=== PATIENT | female | born 1950 | race Caucasian/White ===

== ENCOUNTER 2018-04-19 15:33 | Observation (INO) ==
[2018-04-19 16:19] LABS: Baso # (Auto) 0.1 th/mm3 (0.0-0.2); Baso % (Auto) 0.7 % (0.0-2.0); Eos # (Auto) 0.3 th/mm3 (0.0-0.4); Eos % (Auto) 3.7 % (0.0-4.0); Hematocrit 42.4 % (35.0-46.0); Hemoglobin 14.4 gm/dL (11.6-15.3); Lymph # (Auto) 3.2 th/mm3 (1.0-4.8); Lymph % (Auto) 41.3 % (9.0-44.0); Mean Corpuscular HGB Conc 33.9 % (32.0-36.0); Mean Corpuscular Hemoglobin 31.9 pg (27.0-34.0); Mean Platelet Volume 8.3 fL (7.0-11.0); Mono # (Auto) 0.6 th/mm3 (0.0-0.9); Mono % (Auto) 8.3 % (0.0-8.0); Neut # (Auto) 3.6 th/mm3 (1.8-7.7); Platelet Count 215 th/mm3 (150-450); Red Blood Count 4.51 mil/mm3 (4.00-5.30); Red Cell Distribution Width 14.1 % (11.6-17.2); White Blood Count 7.8 th/mm3 (4.0-11.0)
[2018-04-19 16:41] LABS: Activated Partial Thrombo Time 27.9 sec (23.4-31.7); INR 1.1 Ratio; Prothrombin Time 11.6 sec (9.8-11.6)
--- NOTE | 2018-04-19 16:46 | XR ---
EXAM DATE: 04/19/2018 4:44 PM EST AGE/SEX: 68 years / Female INDICATIONS: Shortness of breath. CLINICAL DATA: This is the patient's initial encounter. Patient reports that signs and symptoms have been present for 1 day and indicates a pain score of Nonresponsive. MEDICAL/SURGICAL HISTORY: . Fractured clavicle. None. COMPARISON: No prior exams available for comparison. FINDINGS: A single AP view of the chest demonstrates the lungs to be symmetrically aerated without evidence of mass, infiltrate or effusion. The cardiomediastinal contours are unremarkable. Osseous structures a re intact. CONCLUSION: No acute cardiopulmonary disease. Electronically signed by: Dino Salguero MD Board Certified Radiologist 04/19/2018 4:45 PM EST
[2018-04-19 17:08] LABS: Anion Gap 8 meq/L (5-15); Aspartate Aminotransferase 25 U/L (15-37); Blood Urea Nitrogen 13 mg/dL (7-18); Calcium 7.9 mg/dL (8.5-10.1); Carbon Dioxide 27.4 meq/L (21.0-32.0); Chloride 105 meq/L (98-107); Glomerular Filtration Rate 46 mL/min (>89); Glucose,Random 119 mg/dL (74-106); Sodium 140 meq/L (136-145)
[2018-04-19 17:09] LABS: Alanine Aminotransferase 13 U/L (10-53)
[2018-04-19 17:13] LABS: Alkaline Phosphatase 54 U/L (45-117); Creatine Kinase 160 U/L (26-192); Total Protein 6.8 g/dL (6.4-8.2)
[2018-04-19 17:18] LABS: Bilirubin,Urine Negative (Negative); Clarity,Urine Clear (Clear); Color,Urine Straw (Yellw/Straw); Glucose,Urine (UA) Negative (Negative); Leukocyte Esterase,Urine Negative (Negative); Nitrite,Urine Negative (Negative); Specific Gravity,Urine 1.005 (1.002-1.035)
--- NOTE | 2018-04-19 17:18 | CT ---
EXAM DATE: 04/19/2018 5:14 PM EST AGE/SEX: 68 years / Female INDICATIONS: Altered Mental Status CLINICAL DATA: This is the patient's initial encounter. Patient reports that signs and symptoms have been present for 1 day and indicates a pain score of 0/10. MEDICAL/SURGICAL HISTORY: Dementia. Diabetes. Hypertension. Non-Hodgkin's Lymphoma None. RADIATION DOSE: 56.35 CTDI (mGy) COMPARISON: No prior exams available for comparison. TECHNIQUE: CT of the head without contrast. Using automated exposure control and adjustment of the mA and/or kV according to patient size, radiation dose was kept as low as reasonably achievable to ob tain optimal diagnostic quality images. DICOM format image data is available electronically for revi ew and comparison. FINDINGS: Cerebrum: The ventricles are normal for age. There is diffuse bilateral cortical atrophy. No evidenc e of midline shift, mass lesion, hemorrhage or acute infarction. Moderate chronic white matter change s are noted bilaterally. There are old small infarcts in the left basal ganglia. No extraaxial fluid collections are seen. 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 Posterior Fossa: The cerebellum and brainstem are intact. The 4th ventricle is midline. The cerebe llopontine angle is unremarkable. Extracranial: The visualized portion of the orbits is intact. Skull: The calvaria is intact. No evidence of skull fracture. CONCLUSION: 1. No focal or acute intracranial hemorrhage. 2. Diffuse bilateral cortical atrophy. 3. 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 4. A few small old infarct in the left basal ganglia. . Electronically signed by: Irving Boykin MD Board Certified Radiologist 04/19/2018 5:17 PM EST
--- NOTE | 2018-04-19 17:45 | ED ---
HPI General Chief complaint: Altered Mental Status Stated complaint: Alt mental Time Seen by Provider: 04/19/18 15:45 Source: family and EMS Mode of arrival: EMS Limitations: altered mental status History of Present Illness HPI narrative: Patient is a 68 year old female who comes in due to concerns for altered mental status. Per daughter, she found her sleeping in the hallway last night, she put her back to bed, and then found her in the hallway again. Daughter states she is not acting like herself, she seems very out of it in and confused. She says that last time she was like this she had a UTI. Patient was seen here yesterday after a fall a few days ago. She was found to have a broken clavicle and was discharged with a prescription for norco. Patient's daughter says she has only been given her a half pill at a time. Related Data Home Medications Medication Instructions Recorded Confirmed glimepiride 1 mg PO QAM 04/18/18 04/19/18 lisinopril 10 mg PO DAILY 04/18/18 04/19/18 lorazepam 0.5 mg PO DAILY 04/18/18 04/19/18 metformin 500 mg PO DAILY 04/18/18 04/19/18 phenobarbital 15 mg PO DAILY PRN 04/18/18 04/19/18 simvastatin 80 mg PO QPM 04/18/18 04/19/18 tramadol 150 mg PO PRN 04/18/18 04/19/18 Previous Rx's Medication Instructions Recorded hydrocodone-acetaminophen [Preemption] 1 tab PO Q4-6H PRN #12 tab 04/18/18 Allergies Allergy/AdvReac Type Severity Reaction Status Date / Time iodine Allergy Swelling Verified 04/19/18 15:50 Review of Systems ROS Unobtainable ROS Unobtainable: unobtainable due to mental status PMFSH Medical History Medical History Dementia (Acute) Diabetes (Acute) Gout (Acute) H/O fracture of wrist (Acute) HTN (hypertension) (Acute) High cholesterol (Acute) Non-Hodgkin lymphoma (Acute) Surgical History Surgical History 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 SKIN: Focused skin assessment warm/dry. HEAD: Atraumatic. Normocephalic. EYES: Pupils equal and round. No scleral icterus. No injection or drainage. ENT: No nasal bleeding or discharge. Mucous membranes pink and moist. NECK: Trachea midline. No JVD. CARDIOVASCULAR: Regular rate and rhythm. No murmur appreciated. RESPIRATORY: No accessory muscle use. Clear to auscultation. Breath sounds equal bilaterally. GASTROINTESTINAL: Abdomen soft, non-tender, nondistended. MUSCULOSKELETAL: No obvious deformities. No clubbing. No cyanosis. No edema. left bka. NEUROLOGICAL: Awake, but does not answer questions. No obvious cranial nerve deficits. Motor grossly within normal limits. PSYCHIATRIC: Appropriate mood and affect; insight and judgment normal. Course Initial Documented Vital Signs Temperature 99.6 F 04/19/18 15:42 Pulse Rate 70 04/19/18 15:42 Respiratory Rate 16 04/19/18 15:42 Blood Pressure 173/78 H 04/19/18 15:42 Pulse Oximetry 93 L 04/19/18 15:42 Last Documented Vital Signs Temperature 99.6 F 04/19/18 15:42 Pulse Rate 70 04/19/18 15:42 Respiratory Rate 16 04/19/18 15:42 Blood Pressure 173/78 H 04/19/18 15:42 Pulse Oximetry 93 L 04/19/18 15:42 Medical Decision Making [facility] Narrative Medical decision making narrative: Patient is a 68 year old female who comes in due to AMS. Patient is awake, but does not follow directions or answer questions. IV established, labs sent. Labs show no acute abnormalities. CT head performed shows no acute abnormalities. It is unclear if this a medication reaction vs dementia vs other neurologic process. Will require admission for further management. Medical Screen Exam Complete: Yes Emergency Medical Condition: Yes Differential Diagnosis Differential Diagnosis: electrolyte abnormalities vs dehydration vs UTI vs intracranial abnormalities Medical Records Medical records reviewed: Yes I reviewed the patient's medical records. Lab Data Lab results reviewed: Yes I reviewed the patient's lab results. Result diagrams: 04/19/18 16:00 04/19/18 16:00 Lab Results 04/19/18 04/19/18 04/19/18 Range/Units 16:00 16:00 16:00 WBC 7.8 (4.0-11.0) th/mm3 RBC 4.51 (4.00-5.30) mil/mm3 Hgb 14.4 (11.6-15.3) gm/dL Hct 42.4 (35.0-46.0) % MCV 94.0 (80.0-100.0) fL MCH 31.9 (27.0-34.0) pg MCHC 33.9 (32.0-36.0) % RDW 14.1 (11.6-17.2) % Plt Count 215 (150-450) th/mm3 MPV 8.3 (7.0-11.0) fL Neut % (Auto) 46.0 (16.0-70.0) % Lymph % (Auto) 41.3 (9.0-44.0) % [place] % (Auto) 8.3 H (0.0-8.0) % Eos % (Auto) 3.7 (0.0-4.0) % Baso % (Auto) 0.7 (0.0-2.0) % Neut # (Auto) 3.6 (1.8-7.7) th/mm3 Lymph # (Auto) 3.2 (1.0-4.8) th/mm3 [place] # (Auto) 0.6 (0.0-0.9) th/mm3 Eos # (Auto) 0.3 (0.0-0.4) th/mm3 Baso # (Auto) 0.1 (0.0-0.2) th/mm3 WBC Differential . Differential Comment Auto diff final PT 11.6 (9.8-11.6) sec INR 1.1 Ratio APTT 27.9 (23.4-31.7) sec Sodium 140 (136-145) meq/L Potassium 4.0 (3.5-5.1) meq/L Chloride 105 (98-107) meq/L Carbon Dioxide 27.4 (21.0-32.0) meq/L Anion Gap 8 (5-15) meq/L BUN 13 (7-18) mg/dL Creatinine 1.17 H (0.50-1.00) mg/dL Estimated GFR 46 L (>89) mL/min Random Glucose 119 H (74-106) mg/dL Lactic Acid (0.4-2.0) mmol/L Calcium 7.9 L (8.5-10.1) mg/dL Magnesium 2.0 (1.5-2.5) mg/dL Total Bilirubin 0.4 (0.2-1.0) mg/dL AST 25 (15-37) U/L ALT 13 (10-53) U/L Alkaline Phosphatase 54 (45-117) U/L Total Creatine Kinase 160 (26-192) U/L Troponin I Less than 0.02 L (0.02-0.05) ng/mL Total Protein 6.8 (6.4-8.2) g/dL Albumin 3.0 L (3.4-5.0) g/dL Urine Color (Yellw/Straw) Urine Clarity (Clear) Urine pH (5.0-8.5) Ur Specific [place] (1.002-1.035) Urine Protein (Neg-Trace) mg/dL Urine Glucose (UA) (Negative) mg/dL Urine Ketones (Negative) mg/dL Urine Occult Blood (Negative) Urine Nitrate (Negative) Urine Bilirubin (Negative) Urine Urobilinogen (Less than 2) mg/dL Ur Leukocyte Esterase (Negative) Urine RBC (0-3) /hpf Micro UA Comment Ur Microscopic Review Urine Culture Comments 04/19/18 04/19/18 Range/Units 16:00 16:30 WBC (4.0-11.0) th/mm3 RBC (4.00-5.30) mil/mm3 Hgb (11.6-15.3) gm/dL Hct (35.0-46.0) % MCV (80.0-100.0) fL MCH (27.0-34.0) pg MCHC (32.0-36.0) % RDW (11.6-17.2) % Plt Count (150-450) th/mm3 MPV (7.0-11.0) fL Neut % (Auto) (16.0-70.0) % Lymph % (Auto) (9.0-44.0) % [place] % (Auto) (0.0-8.0) % Eos % (Auto) (0.0-4.0) % Baso % (Auto) (0.0-2.0) % Neut # (Auto) (1.8-7.7) th/mm3 Lymph # (Auto) (1.0-4.8) th/mm3 [place] # (Auto) (0.0-0.9) th/mm3 Eos # (Auto) (0.0-0.4) th/mm3 Baso # (Auto) (0.0-0.2) th/mm3 WBC Differential Differential Comment PT (9.8-11.6) sec INR Ratio APTT (23.4-31.7) sec Sodium (136-145) meq/L Potassium (3.5-5.1) meq/L Chloride (98-107) meq/L Carbon Dioxide (21.0-32.0) meq/L Anion Gap (5-15) meq/L BUN (7-18) mg/dL Creatinine (0.50-1.00) mg/dL Estimated GFR (>89) mL/min Random Glucose (74-106) mg/dL Lactic Acid 1.1 (0.4-2.0) mmol/L Calcium (8.5-10.1) mg/dL Magnesium (1.5-2.5) mg/dL Total Bilirubin (0.2-1.0) mg/dL AST (15-37) U/L ALT (10-53) U/L Alkaline Phosphatase (45-117) U/L Total Creatine Kinase (26-192) U/L Troponin I (0.02-0.05) ng/mL Total Protein (6.4-8.2) g/dL Albumin (3.4-5.0) g/dL Urine Color Straw (Yellw/Straw) Urine Clarity Clear (Clear) Urine pH 5.0 (5.0-8.5) Ur Specific [place] 1.005 (1.002-1.035) Urine Protein Negative (Neg-Trace) mg/dL Urine Glucose (UA) Negative (Negative) mg/dL Urine Ketones Negative (Negative) mg/dL Urine Occult Blood Small H (Negative) Urine Nitrate Negative (Negative) Urine Bilirubin Negative (Negative) Urine Urobilinogen Less than 2 (Less than 2) mg/dL Ur Leukocyte Esterase Negative (Negative) Urine RBC Less than 1 (0-3) /hpf Micro UA Comment Cath-culture not ind Ur Microscopic Review Not Reportable Urine Culture Comments Cath-cult not ind Imaging Data Radiologist's impression: Chest X-Ray 04/19/18 15:53 CONCLUSION: No acute cardiopulmonary disease. Head CT 04/19/18 15:53 CONCLUSION: 1. No focal or acute intracranial hemorrhage. 2. Diffuse bilateral cortical atrophy. 3. 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 4. A few small old infarct in the left basal ganglia. . ECG Data EKG Prior to Arrival: No Attestation: I personally reviewed and interpreted this ECG as follows: Interpretation: ECG shows NSR at a rate of 68, no ST elevation or depression, normal intervals Discharge Plan Discharge Disposition Patient Disposition: ED Admit(ED Internal Use Only) Discharge Condition Condition: Stable Discharge Details Diagnosis: Altered mental status Physicians Team ED Provider: Jayda Hendrickson Primary Care Provider: Abhijit Fox Rxs /Orders / Referrals /Forms Prescriptions: No Action metformin 500 mg Tablet 500 mg PO DAILY RF: 0 simvastatin 80 mg Tablet 80 mg PO QPM RF: 0 glimepiride 1 mg Tablet 1 mg PO QAM RF: 0 lorazepam 0.5 mg Tablet 0.5 mg PO DAILY RF: 0 phenobarbital 15 mg Tablet 15 mg PO DAILY PRN (Reason: Seizures) RF: 0 lisinopril 10 mg Tablet 10 mg PO DAILY RF: 0 tramadol 150 mg Capsule,Er Biphase 24 Hr 25-75 150 mg PO PRN RF: 0 hydrocodone-acetaminophen [Preemption] 5-325 mg tablet 1 tab PO Q4-6H PRN (Reason: Acute pain) Qty: 12 RF: 0 Status ED Status: With Doctor
--- NOTE | 2018-04-19 18:10 | P.HPFP ---
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 Patient was brought in by daughter. Upon arrival to the room, daughter was not at bedside. Patient was able to answer questions and was oriented to place and person. Patient was able to follow directions as well. Spoke with daughter on the phone. Daughter states that for the last couple days, patient has been "acting bizarre." Reports that last night around 1:30 AM, patient was found in the hallway sleeping in her wheelchair. Daughter proceeded to put her back to bed. Reports that when she woke up around 6 AM, patient was back in the hallway sleeping in her wheelchair. Also reports that patient is usually given her pills in a box every morning and instead of taking the morning pills patient to the night pills about 2 days ago. Daughter noticed that patient has also been less interested in smoking, which is odd because patient is a heavy smoker. In addition, daughter states that 2 days ago patient fell in the bathroom and hit the side of the tub with her right shoulder. Does not think she had her head. Patient went to the ER on 04/18 and was found to have a distal right clavicle fracture. Patient was given [place] for pain. Daughter states that she has been giving her about half pill every day. Patient had a follow-up appointment with Dr. Wynn early next week. Further reports that her mom is usually able to carry on a conversation and able to care for herself. States that her mom had this symptoms about 1 year ago when she had a UTI and was diagnosed with delirium. Patient currently does not have a neurologist. 2 months ago and daughter thinks that this might be related. Denies chest pain, shortness breath, headache, vision changes, shaking, loss of bowel or bladder control, tongue biting, trouble swallowing, dysarthria, nausea vomiting, fevers , night sweats, and weight loss. - Diagnosis (1) Altered mental status (2) Clavicle fracture (3) Dementia (4) Type 2 diabetes mellitus (5) Seizures (6) HTN (hypertension) (7) Hyperlipidemia (8) Anxiety (9) Insomnia (10) Nutrition, metabolism, and development symptoms Review of Systems All other systems reviewed negative except as stated in HPI PMFSH - History History Provided By: Family Member - Medical History Medical History: Medical History (Last Updated 04/19/18 @ 21:57 by Clare Wilson MD, R2) Anxiety History of stroke Dementia Diabetes Gout H/O fracture of wrist HTN (hypertension) High cholesterol Non-Hodgkin lymphoma - Surgical History Surgical History: Surgical History (Last Reviewed 04/19/18 @ 17:40 by Jayda Hendrickson MD) Above knee amputation of right lower extremity - Family History Family History: Family History (Last Updated 04/19/18 @ 19:29 by Clare Wilson MD, R2) Father Heart disease Brother Leukemia - Social History I have reviewed the patient's Social History: Yes - Tobacco History Second Hand Smoke Exposure: Yes Tobacco Use In Past 30 Days: Yes Smoking Status: Current every day smoker Tobacco Type: Cigarettes - Alcohol History How Often Do You Have a Drink Containing Alcohol: Never - Substance Use History Substance History: Unable to Obtain - Immunization History Tetanus Immunization: Unsure Medications and Allergies Active Medications: Active Medications Sodium Chloride (Ns Flush) 2 ml IV.FLUSH BID YUKO Sodium Chloride (Ns Flush) 2 ml IV.FLUSH PRN PRN PRN Reason: FLUSH AFTER USING IV ACCESS Allergies Allergy/AdvReac Type Severity Reaction Status Date / Time iodine Allergy Swelling Verified 04/19/18 15:50 Home Medications Medication Instructions Recorded Confirmed Type glimepiride 2 mg PO QAM 04/18/18 04/19/18 History lisinopril 10 mg PO DAILY 04/18/18 04/19/18 History lorazepam 0.5 mg PO DAILY 04/18/18 04/19/18 History metformin 500 mg PO DAILY 04/18/18 04/19/18 History phenobarbital 15 mg PO DAILY PRN 04/18/18 04/18/18 History simvastatin 80 mg PO QPM 04/18/18 04/19/18 History tramadol 150 mg PO PRN 04/18/18 04/19/18 History escitalopram oxalate 04/19/18 04/19/18 History gabapentin 04/19/18 04/19/18 History levetiracetam 04/19/18 History quetiapine 04/19/18 04/19/18 History Exam Vital signs: Vital Signs 04/19/18 15:42 Temperature 99.6 F Pulse Rate 70 Respiratory Rate 16 Blood Pressure 173/78 H Pulse Oximetry 93 L Intake & Output 04/18/18 04/19/18 04/19/18 18:59 06:59 18:59 Weight 65.771 kg - Constitutional no acute distress - Routine HEENT Exam Head: Present: normocephalic, atraumatic Eye: Present: EOMI, PERRL ENT: Present: mucous membranes moist - Routine Neck Exam Present: supple, full ROM. Absent: JVD, carotid bruit - Routine Respiratory Exam Present: CTA bilaterally. Absent: accessory muscle use, wheezes, crackles - Routine Cardiovascular Exam Present: RRR, S1, S2. Absent: murmur, gallop, rubs - Routine Abdominal Exam Present: soft, normoactive bowel sounds. Absent: tenderness, distended, rebound , guarding - Routine Extremities Exam Present: full ROM. Absent: cyanosis, clubbing, edema Comments: right shoulder pain i - Routine Skin Exam Present: intact - Routine Neurological Exam Present: alert, normal speech. 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 Right upper extremity difficult to assess due to right clavicle fracture. Left upper extremity 5 out of 5. Right BKA. Left lower extremity 5. Sensation intact throughout. Negative pronator drift. Results - Labs Result diagrams: 04/19/18 16:00 04/19/18 16:00 Abnormal lab results 04/19/18 04/19/18 04/19/18 Range/Units 16:00 16:00 16:30 [place] % (Auto) 8.3 H (0.0-8.0) % Creatinine 1.17 H (0.50-1.00) mg/dL Estimated GFR 46 L (>89) mL/min Random Glucose 119 H (74-106) mg/dL Calcium 7.9 L (8.5-10.1) mg/dL Troponin I Less than 0.02 L (0.02-0.05) ng/mL Albumin 3.0 L (3.4-5.0) g/dL Urine Occult Blood Small H (Negative) Short CBC 04/19/18 Range/Units 16:00 WBC 7.8 (4.0-11.0) th/mm3 Hgb 14.4 (11.6-15.3) gm/dL Hct 42.4 (35.0-46.0) % Plt Count 215 (150-450) th/mm3 BMP 04/19/18 16:00 Sodium 140 Potassium 4.0 Chloride 105 Carbon Dioxide 27.4 BUN 13 Creatinine 1.17 H Calcium 7.9 L Cardiac Enzymes 04/19/18 Range/Units 16:00 Total Creatine Kinase 160 (26-192) U/L Troponin I Less than 0.02 L (0.02-0.05) ng/mL Liver Function 04/19/18 Range/Units 16:00 Total Bilirubin 0.4 (0.2-1.0) mg/dL AST 25 (15-37) U/L ALT 13 (10-53) U/L Alkaline Phosphatase 54 (45-117) U/L Albumin 3.0 L (3.4-5.0) g/dL Urine 04/19/18 Range/Units 16:30 Urine Color Straw (Yellw/Straw) Urine Clarity Clear (Clear) Urine pH 5.0 (5.0-8.5) Ur Specific [place] 1.005 (1.002-1.035) Urine Protein Negative (Neg-Trace) mg/dL Urine Glucose (UA) Negative (Negative) mg/dL - Imaging Impressions Chest X-Ray 04/19/18 15:53 CONCLUSION: No acute cardiopulmonary disease. Head CT 04/19/18 15:53 CONCLUSION: 1. No focal or acute intracranial hemorrhage. 2. Diffuse bilateral cortical atrophy. 3. 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 4. A few small old infarct in the left basal ganglia. . Caprini VTE Risk Assessment Caprini VTE Risk Assessment: Moderate/High Risk (score >= 2) Caprini Risk Assessment Model: Point Value = 1 Point Value = 2 Point Value = 3 Point Value = 5 Age 41-60 Minor surgery BMI > 25 kg/m2 Swollen legs Varicose veins or History of unexplained or recurrent spontaneous Oral contraceptives or hormone replacement Sepsis (< 1 month) Serious lung disease, including pneumonia (< 1 month) Abnormal pulmonary function Acute myocardial infarction Congestive heart failure (< 1 month) History of inflammatory bowel disease Medical patient at bed rest Age 61-74 Arthroscopic surgery Major open surgery (> 45 min) Laparoscopic surgery (> 45 min) Malignancy Confined to bed (> 72 hours) Immobilizing plaster cast Central venous access Age >= 75 History of VTE Family history of VTE Factor V Leiden Prothrombin [id number] Lupus anticoagulant Anticardiolipin antibodies Elevated serum homocysteine Heparin-induced thrombocytopenia Other congenital or acquired thrombophilia Stroke (< 1 month) Elective arthroplasty Hip, pelvis, or leg fracture Acute spinal cord injury (< 1 month) Prophylaxis Regimen: Total Risk Factor Score Risk Level Prophylaxis Regimen 0-1 Low Early ambulation 2 Moderate Order ONE of the following: *Sequential Compression Device (SCD) *Heparin 5000 units SQ BID 3-4 Higher Order ONE of the following medications: *Heparin 5000 units SQ TID *Enoxaparin/Lovenox 40 mg SQ daily (WT < 150 kg, CrCl > 30 mL/min) *Enoxaparin/Lovenox 30 mg SQ daily (WT < 150 kg, CrCl > 10-29 mL/min) *Enoxaparin/Lovenox 30 mg SQ BID (WT < 150 kg, CrCl > 30 mL/min) AND/OR *Sequential Compression Device (SCD) 5 or more Highest Order ONE of the following medications: *Heparin 5000 units SQ TID (Preferred with Epidurals) *Enoxaparin/Lovenox 40 mg SQ daily (WT < 150 kg, CrCl > 30 mL/min) *Enoxaparin/Lovenox 30 mg SQ daily (WT < 150 kg, CrCl > 10-29 mL/min) *Enoxaparin/Lovenox 30 mg SQ BID (WT < 150 kg, CrCl > 30 mL/min) AND *Sequential Compression Device (SCD) Assessment and Plan - Assessment (1) Altered mental status Code(s): R41.82 - Altered mental status, unspecified Status: Acute Plan: 68 yr old F w/ hx of 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 Differential diagnosis: Dementia versus delirium secondary to UTI or pneumonia versus TIA/stroke versus polypharmacy versus hypoglycemia versus seizures versus metastatic cancer versus subdural hematoma Workup: Vitals wnl CBC wnl CMP demonstrates creatinine of 1.17, do not know patient's baseline, otherwise normal Troponin less than 0.02 EKG demonstrates sinus rhythm CXR negative for acute cardiopulmonary disease UA negative UDS negative TSH, T4 wnl Head CT demonstrates no focal or acute intracranial hemorrhage. Diffuse bilateral cortical atrophy. 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 A few small old infarct in the left basal ganglia. Plan: Patient passed bedside swallow study Neurochecks q4h MRI and EEG ordered Consider neuro consult if needed (2) Clavicle fracture Code(s): S42.009A - Fracture of unspecified part of unspecified clavicle, initial encounter for closed fracture Status: Acute Plan: Right displaced clavicle fracture Patient told to follow up with Dr. Wynn early next week [employer] consulted to apply figure-8 shoulder sling (3) Dementia Code(s): F03.90 - Unspecified dementia without behavioral disturbance Status: Acute Plan: Currently has dementia. will need outpatient neuro followup (4) Type 2 diabetes mellitus Code(s): E11.9 - Type 2 diabetes mellitus without complications Status: Acute Plan: Continue home glimepiride 2mg PO AC breakfast Low dose SS (5) Seizures Code(s): R56.9 - Unspecified convulsions Status: Acute Plan: Keppra level ordered and pending continue levetiracetam 500mg BID (6) HTN (hypertension) Code(s): I10 - Essential (primary) hypertension Status: Acute Plan: Continue home lisinopril 10mg po daily clonidine 0.1mg PRN for BP>180/100 (7) Hyperlipidemia Code(s): E78.5 - Hyperlipidemia, unspecified Status: Acute Plan: Continue atorvastatin 40mg PO QPM (8) Anxiety Code(s): F41.9 - Anxiety disorder, unspecified Status: Acute Plan: Continue Ativan 1mg PO daily (9) Insomnia Code(s): G47.00 - Insomnia, unspecified Status: Acute Plan: continue Seroquel 50mg PO HS (10) Nutrition, metabolism, and development symptoms Code(s): R63.8 - Other symptoms and signs concerning food and fluid intake Status: Acute Plan: Fluids: 100mls/hr Diet: Diabetic diet Electrolytes: Monitor replace as needed Vitals every 4, monitor I's and O's DVT prophylaxis: SCDs (1) Altered mental status Qualifiers: Altered mental status type: unspecified Qualified Code(s): R41.82 - Altered mental status, unspecified (2) Clavicle fracture Qualifiers: Fracture type: closed Laterality: right
[2018-04-19] MEDS ORDERED: Acetaminophen 325 MG Tablet PO PRN (18:35)
[2018-04-19] MEDS ORDERED: Dextrose 50% in Water 50 ML Vial IV.PUSH PRN (18:35)
[2018-04-19] MEDS ORDERED: Acetaminophen Inj 650 MG/65 ML VIAL IV.SIG PRN (18:45)
[2018-04-19] MEDS: Sod Chloride 0.9% Inj 1,000 ML IV.CONT SCH (19:26)
[2018-04-19 19:27] LABS: Amphetamine Screen,Urine Neg (Neg); Barbiturate Screen,Urine Neg (Neg); Cannabinoid Screen,Urine Neg (Neg); Cocaine Screen,Urine Neg (Neg)
[2018-04-19 19:30] LABS: Opiate Screen,Urine Neg (Neg)
[2018-04-19 19:39] LABS: Free T4 (Free Thyroxine) 1.11 ng/dL (0.76-1.46)
[2018-04-19] MEDS: Insulin NovoLOG Aspart Correctional Sugar Inj SQ SCH (20:33)
[2018-04-19] MEDS: levETIRAcetam 500 MG Tablet PO SCH (20:51)
[2018-04-20] MEDS: Sod Chloride 0.9% Inj 1,000 ML IV.CONT SCH ×2 (05:07→15:57)
[2018-04-20] MEDS ORDERED: Glimepiride 2 MG Tablet PO SCH (07:00)
[2018-04-20 08:33] LABS: Baso % (Auto) 0.6 % (0.0-2.0); Eos # (Auto) 0.2 th/mm3 (0.0-0.4); Eos % (Auto) 2.8 % (0.0-4.0); Hematocrit 45.1 % (35.0-46.0); Lymph # (Auto) 1.9 th/mm3 (1.0-4.8); Lymph % (Auto) 27.9 % (9.0-44.0); Mean Corpuscular HGB Conc 33.2 % (32.0-36.0); Mean Corpuscular Hemoglobin 30.9 pg (27.0-34.0); Mean Corpuscular Volume 93.3 fL (80.0-100.0); Mean Platelet Volume 8.9 fL (7.0-11.0); Mono # (Auto) 0.4 th/mm3 (0.0-0.9); Mono % (Auto) 6.2 % (0.0-8.0); Neut # (Auto) 4.3 th/mm3 (1.8-7.7); Neut % (Auto) 62.5 % (16.0-70.0); Platelet Count 213 th/mm3 (150-450); Red Blood Count 4.84 mil/mm3 (4.00-5.30); Red Cell Distribution Width 14.1 % (11.6-17.2); White Blood Count 6.9 th/mm3 (4.0-11.0)
--- NOTE | 2018-04-20 08:44 | P.PNFP ---
Subjective Interval history: Walked by patient's room to find two nurses at bedside trying to find out what was wrong with the patient. The patient was in the position crying. She was not responding to questions, but she had told them that she had a conversation with her mother. Asked patient what was bothering her. She was able to shake and nod her head appropriately in response to questions. She knows that something is wrong but doesn't know what. Discussed with nurse that patient recent presented to the ED with a clavicle fracture and she seemed to be in pain, which is a common cause of delirium among the elderly. Discussed plan to better treat patient's pain. Also, discussed that there is no currently known medical cause for her AMS. After this discussion, I checked back in with the nurse who told me that the patient was c/o right shoulder pain, and nurse was trying to help re-position the patient who was lying on right shoulder. <Dino Dawson - 04/20/18 09:36> Results - Labs Result diagrams: 04/20/18 06:32 04/20/18 06:32 <Roxanna Magana - 04/20/18 11:53> Abnormal lab results 04/19/18 04/19/18 04/19/18 Range/Units 16:00 16:00 16:30 [place] % (Auto) 8.3 H (0.0-8.0) % Creatinine 1.17 H (0.50-1.00) mg/dL Estimated GFR 46 L (>89) mL/min POC Glucose (68-110) mg/dl Random Glucose 119 H (74-106) mg/dL Calcium 7.9 L (8.5-10.1) mg/dL Troponin I Less than 0.02 L (0.02-0.05) ng/mL Albumin 3.0 L (3.4-5.0) g/dL Urine Occult Blood Small H (Negative) 04/19/18 04/20/18 04/20/18 Range/Units 20:30 06:32 08:26 [place] % (Auto) (0.0-8.0) % Creatinine (0.50-1.00) mg/dL Estimated GFR 62 L (>89) mL/min POC Glucose 62 L 119 H (68-110) mg/dl Random Glucose (74-106) mg/dL Calcium 8.4 L (8.5-10.1) mg/dL Troponin I (0.02-0.05) ng/mL Albumin 2.9 L (3.4-5.0) g/dL Urine Occult Blood (Negative) Short CBC 04/19/18 04/20/18 Range/Units 16:00 06:32 WBC 7.8 6.9 (4.0-11.0) th/mm3 Hgb 14.4 15.0 (11.6-15.3) gm/dL Hct 42.4 45.1 (35.0-46.0) % Plt Count 215 213 (150-450) th/mm3 BMP 04/19/18 04/20/18 16:00 06:32 Sodium 140 142 Potassium 4.0 4.1 Chloride 105 107 Carbon Dioxide 27.4 27.3 BUN 13 12 Creatinine 1.17 H 0.91 Calcium 7.9 L 8.4 L Cardiac Enzymes 04/19/18 Range/Units 16:00 Total Creatine Kinase 160 (26-192) U/L Troponin I Less than 0.02 L (0.02-0.05) ng/mL Liver Function 04/19/18 04/20/18 Range/Units 16:00 06:32 Total Bilirubin 0.4 0.6 (0.2-1.0) mg/dL AST 25 32 (15-37) U/L ALT 13 15 (10-53) U/L Alkaline Phosphatase 54 53 (45-117) U/L Albumin 3.0 L 2.9 L (3.4-5.0) g/dL Urine 04/19/18 Range/Units 16:30 Urine Color Straw (Yellw/Straw) Urine Clarity Clear (Clear) Urine pH 5.0 (5.0-8.5) Ur Specific [place] 1.005 (1.002-1.035) Urine Protein Negative (Neg-Trace) mg/dL Urine Glucose (UA) Negative (Negative) mg/dL <Roxanna Magana - 04/20/18 11:53> Abnormal lab results 04/19/18 04/19/18 04/19/18 Range/Units 16:00 16:00 16:30 [place] % (Auto) 8.3 H (0.0-8.0) % Creatinine 1.17 H (0.50-1.00) mg/dL Estimated GFR 46 L (>89) mL/min POC Glucose (68-110) mg/dl Random Glucose 119 H (74-106) mg/dL Calcium 7.9 L (8.5-10.1) mg/dL Troponin I Less than 0.02 L (0.02-0.05) ng/mL Albumin 3.0 L (3.4-5.0) g/dL Urine Occult Blood Small H (Negative) 04/19/18 04/20/18 Range/Units 20:30 08:26 [place] % (Auto) (0.0-8.0) % Creatinine (0.50-1.00) mg/dL Estimated GFR (>89) mL/min POC Glucose 62 L 119 H (68-110) mg/dl Random Glucose (74-106) mg/dL Calcium (8.5-10.1) mg/dL Troponin I (0.02-0.05) ng/mL Albumin (3.4-5.0) g/dL Urine Occult Blood (Negative) Short CBC 04/19/18 04/20/18 Range/Units 16:00 06:32 WBC 7.8 6.9 (4.0-11.0) th/mm3 Hgb 14.4 15.0 (11.6-15.3) gm/dL Hct 42.4 45.1 (35.0-46.0) % Plt Count 215 213 (150-450) th/mm3 BMP 04/19/18 16:00 Sodium 140 Potassium 4.0 Chloride 105 Carbon Dioxide 27.4 BUN 13 Creatinine 1.17 H Calcium 7.9 L Cardiac Enzymes 04/19/18 Range/Units 16:00 Total Creatine Kinase 160 (26-192) U/L Troponin I Less than 0.02 L (0.02-0.05) ng/mL Liver Function 04/19/18 Range/Units 16:00 Total Bilirubin 0.4 (0.2-1.0) mg/dL AST 25 (15-37) U/L ALT 13 (10-53) U/L Alkaline Phosphatase 54 (45-117) U/L Albumin 3.0 L (3.4-5.0) g/dL Urine 04/19/18 Range/Units 16:30 Urine Color Straw (Yellw/Straw) Urine Clarity Clear (Clear) Urine pH 5.0 (5.0-8.5) Ur Specific [place] 1.005 (1.002-1.035) Urine Protein Negative (Neg-Trace) mg/dL Urine Glucose (UA) Negative (Negative) mg/dL <EuniceDino Espino - 04/20/18 08:44> - Imaging Impressions Chest X-Ray 04/19/18 15:53 CONCLUSION: No acute cardiopulmonary disease. Head CT 04/19/18 15:53 CONCLUSION: 1. No focal or acute intracranial hemorrhage. 2. Diffuse bilateral cortical atrophy. 3. 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 4. A few small old infarct in the left basal ganglia. . <Roxanna Magana - 04/20/18 11:53> Impressions Chest X-Ray 04/19/18 15:53 CONCLUSION: No acute cardiopulmonary disease. Head CT 04/19/18 15:53 CONCLUSION: 1. No focal or acute intracranial hemorrhage. 2. Diffuse bilateral cortical atrophy. 3. 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 4. A few small old infarct in the left basal ganglia. . <Dino Dawson - 04/20/18 08:44> Physical Exam Vital signs: Vital Signs 04/19/18 15:42 04/19/18 15:53 04/19/18 20:00 Temperature 99.6 F Pulse Rate 70 Respiratory Rate 16 Blood Pressure 173/78 H Pulse Oximetry 93 L 97 98 04/19/18 20:21 04/19/18 23:54 04/20/18 04:01 Temperature 97.9 F 98.7 F Pulse Rate 76 75 Respiratory Rate 18 18 Blood Pressure 143/78 H 161/91 H Pulse Oximetry 96 97 94 L 04/20/18 07:50 04/20/18 09:14 Temperature 99.8 F H Pulse Rate 88 Respiratory Rate 16 Blood Pressure 216/95 H Pulse Oximetry 92 L 92 L Intake & Output 04/19/18 04/20/18 04/20/18 18:59 06:59 18:59 Intake Total 1060 / 1060 Balance 1060 / 1060 Weight 58.967 kg 58.7 kg Intake: IV 1000 / 1000 NS Inj 1,000 ML @ 100 mls/hr IV 1000 / 1000 .CONT .Q10H YUKO Rx#:[id number] Oral 60 / 60 Other: # Voids 1 # Incontinent Voids 2 # Urine Diapers 2 Weight On Admission 58.967 kg <Roxanna Magana - 04/20/18 11:53> Vital Signs 04/19/18 15:42 04/19/18 15:53 04/19/18 20:00 Temperature 99.6 F Pulse Rate 70 Respiratory Rate 16 Blood Pressure 173/78 H Pulse Oximetry 93 L 97 98 04/19/18 20:21 04/19/18 23:54 04/20/18 04:01 Temperature 97.9 F 98.7 F Pulse Rate 76 75 Respiratory Rate 18 18 Blood Pressure 143/78 H 161/91 H Pulse Oximetry 96 97 94 L 04/20/18 07:50 Temperature 99.8 F H Pulse Rate 88 Respiratory Rate 16 Blood Pressure 216/95 H Pulse Oximetry 92 L Intake & Output 04/19/18 04/20/18 04/20/18 18:59 06:59 18:59 Intake Total 1060 / 1060 Balance 1060 / 1060 Weight 58.967 kg 58.7 kg Intake: IV 1000 / 1000 NS Inj 1,000 ML @ 100 mls/hr IV 1000 / 1000 .CONT .Q10H YUKO Rx#:[id number] Oral 60 / 60 Other: # Voids 1 # Incontinent Voids 2 # Urine Diapers 2 Weight On Admission 58.967 kg <Dino Dawson - 04/20/18 09:36> Narrative: Exam Narrative: GENERAL: Awake, patient is lying on her right side in the position, tearful, does not answer questions verbally but she shakes and nods her head appropriately in response to questions. SKIN: Focused skin assessment warm/dry. HEAD: Atraumatic. Normocephalic. EYES: Pupils equal and round. No scleral icterus. No injection or drainage. ENT: No nasal bleeding or discharge. Mucous membranes pink and moist. NECK: Trachea midline. No JVD. CARDIOVASCULAR: Regular rate and rhythm. No murmur appreciated. RESPIRATORY: No accessory muscle use. Clear to auscultation. Breath sounds equal bilaterally. GASTROINTESTINAL: Abdomen soft, non-tender, nondistended. MUSCULOSKELETAL: No obvious deformities. No clubbing. No cyanosis. No edema. Right LE amputation. NEUROLOGICAL: Awake, but does not answer questions. No obvious cranial nerve deficits. Motor grossly within normal limits. PSYCHIATRIC: Appropriate mood and affect; insight and judgment normal. <Dino Dawson - 04/20/18 09:59> - Urinary Catheter Management Straight Cath placed during this visit: no <Roxanna Magana - 04/20/18 11:53> yes <Dino Daswon - 04/20/18 10:05> Reason for continuing: Not indwelling catheter <Dino Dawson - 04/20/18 08 :44> Insertion date: 04/19/18 <Dino Dawson - 04/20/18 08:44> Insertion time: 18:21 <Dino Dawson - 04/20/18 08:44> Assessment and Plan - Assessment (1) Altered mental status Code(s): R41.82 - Altered mental status, unspecified Status: Acute (2) Clavicle fracture Code(s): S42.009A - Fracture of unspecified part of unspecified clavicle, initial encounter for closed fracture Status: Acute (3) Dementia Code(s): F03.90 - Unspecified dementia without behavioral disturbance Status: Acute (4) Type 2 diabetes mellitus Code(s): E11.9 - Type 2 diabetes mellitus without complications Status: Acute (5) Seizures Code(s): R56.9 - Unspecified convulsions Status: Acute (6) HTN (hypertension) Code(s): I10 - Essential (primary) hypertension Status: Acute (7) Hyperlipidemia Code(s): E78.5 - Hyperlipidemia, unspecified Status: Acute (8) Anxiety Code(s): F41.9 - Anxiety disorder, unspecified Status: Acute (9) Insomnia Code(s): G47.00 - Insomnia, unspecified Status: Acute (10) Nutrition, metabolism, and development symptoms Code(s): R63.8 - Other symptoms and signs concerning food and fluid intake Status: Acute <Roxanna Magana - 04/20/18 11:53> (1) Altered mental status Code(s): R41.82 - Altered mental status, unspecified Status: Acute Plan: 68 yr old F w/ hx of right LE amputation due to PVD, dementia, diabetes, hypertension, non-Hodgkin's lymphoma in remission since 2008, and seizures ( last seizure was in 2007) presents to the ED for altered mental status. Medical work up negative. Most likely diagnosis at this time, especially in the context of patient presenting to the ED with a clavicle fracture on 04/18/18, is that her pain is causing delirium. Thus, plan today to better treat her pain. Differential diagnosis: Dementia versus delirium secondary to undertreated pain or polypharmacy versus TIA/stroke versus seizures versus metastatic cancer Ruled out: UTI, pneumonia, hemorrhagic stroke, mass effect, hypoglycemia, thyroid problems, [place] Plan: Tylenol 1g IV q8h scheduled Morphine 2g IV q3h PRN for pain Patient passed bedside swallow study Neurochecks q4h MRI and EEG ordered Consider neuro consult if needed Adding baby aspirin to high-intensity statin for remote cerebral infarcts Workup: Vitals wnl CBC wnl CMP demonstrates creatinine of 1.17, do not know patient's baseline, otherwise normal Troponin less than 0.02 EKG demonstrates sinus rhythm CXR negative for acute cardiopulmonary disease UA negative UDS negative TSH, T4 wnl Head CT demonstrates no focal or acute intracranial hemorrhage. Diffuse bilateral cortical atrophy. 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 A few small old infarct in the left basal ganglia. (2) Clavicle fracture Code(s): S42.009A - Fracture of unspecified part of unspecified clavicle, initial encounter for closed fracture Status: Acute Plan: Right displaced clavicle fracture Patient told to follow up with Dr. Wynn early next week [employer] consulted to apply figure-8 shoulder sling Pain control as above (3) Dementia Code(s): F03.90 - Unspecified dementia without behavioral disturbance Status: Acute Plan: Currently has dementia. will likely need outpatient neuro followup (4) Type 2 diabetes mellitus Code(s): E11.9 - Type 2 diabetes mellitus without complications Status: Acute Plan: Continue home glimepiride 2mg PO AC breakfast Low dose SS (5) Seizures Code(s): R56.9 - Unspecified convulsions Status: Acute Plan: Keppra level ordered and pending continue levetiracetam 500mg BID (6) HTN (hypertension) Code(s): I10 - Essential (primary) hypertension Status: Acute Plan: Continue home lisinopril 10mg po daily clonidine 0.1mg PRN for BP>180/100 Vasotec PRN for BP>180/100 and unable to tolerate PO (7) Hyperlipidemia Code(s): E78.5 - Hyperlipidemia, unspecified Status: Acute Plan: Continue atorvastatin 40mg PO QPM (8) Anxiety Code(s): F41.9 - Anxiety disorder, unspecified Status: Acute Plan: Continue Ativan 1mg PO daily (9) Insomnia Code(s): G47.00 - Insomnia, unspecified Status: Acute Plan: continue Seroquel 50mg PO HS (10) Nutrition, metabolism, and development symptoms Code(s): R63.8 - Other symptoms and signs concerning food and fluid intake Status: Acute Plan: Fluids: 100mls/hr Diet: Diabetic diet Electrolytes: Monitor replace as needed Vitals every 4, monitor I's and O's DVT prophylaxis: SCDs, chemical ppx contraindicated with recent clavicle fracture. <Dino Dawson - 04/20/18 10:05> - Attending Attestation The exam, history, and the medical decision-making described in the above note were completed with the assistance of the resident physician. I reviewed and agree with the findings presented. I attest that I had a [id number] encounter with the patient on the same day, and personally performed and documented my assessment and findings in the medical record. on review of her clinic records, she was mobile and alert on the of this Month. Now she is crying at times and very subdued with one word answers to questions at best. When asked if she had worsening depression, she nodded. She does have underlying dementia per the records as well as some depression/ anxiety. Will ask Psychiatry if any changes in medicines or other treatment could help at this point. She is in pain with the clavicle fracture but this could also be her underlying depression. <Roxanna Magana - 04/20/18 11:53> <Dnio Dawson - Last Filed: 04/20/18 10:05> (1) Altered mental status Qualifiers: Altered mental status type: unspecified Qualified Code(s): R41.82 - Altered mental status, unspecified (2) Clavicle fracture Qualifiers: Fracture type: closed Laterality: right <Roxanna Magana - Last Filed: 04/20/18 11:53> (1) Altered mental status Qualifiers: Altered mental status type: unspecified Qualified Code(s): R41.82 - Altered mental status, unspecified (2) Clavicle fracture Qualifiers: Fracture type: closed Laterality: right <EuniceDino Espino - Last Filed: 04/20/18 10:05> (1) Altered mental status Qualifiers: Altered mental status type: unspecified Qualified Code(s): R41.82 - Altered mental status, unspecified (2) Clavicle fracture Qualifiers: Fracture type: closed Laterality: right <Roxanna Magana - Last Filed: 04/20/18 11:53> (1) Altered mental status Qualifiers: Altered mental status type: unspecified Qualified Code(s): R41.82 - Altered mental status, unspecified (2) Clavicle fracture Qualifiers: Fracture type: closed Laterality: right
[2018-04-20] MEDS ORDERED: LORazepam 0.5 MG Tablet PO SCH (09:00)
[2018-04-20] MEDS ORDERED: QUEtiapine 25 MG Tablet PO SCH (09:00)
[2018-04-20] MEDS: Insulin NovoLOG Aspart Correctional Sugar Inj SQ SCH ×4 (09:08→21:22)
[2018-04-20 09:14] LABS: Albumin 2.9 g/dL (3.4-5.0); Anion Gap 8 meq/L (5-15); Aspartate Aminotransferase 32 U/L (15-37); Blood Urea Nitrogen 12 mg/dL (7-18); Calcium 8.4 mg/dL (8.5-10.1); Carbon Dioxide 27.3 meq/L (21.0-32.0); Chloride 107 meq/L (98-107); Glomerular Filtration Rate 62 mL/min (>89); Glucose,Random 86 mg/dL (74-106); Potassium 4.1 meq/L (3.5-5.1); Sodium 142 meq/L (136-145)
[2018-04-20] MEDS ORDERED: Morphine Sulfate Inj 2 MG/ML Vial IV.PUSH ONE (09:15)
[2018-04-20 09:16] LABS: Alanine Aminotransferase 15 U/L (10-53)
[2018-04-20 09:18] LABS: Alkaline Phosphatase 53 U/L (45-117); Total Protein 6.8 g/dL (6.4-8.2)
[2018-04-20] MEDS ORDERED: Morphine Sulfate Inj 2 MG/ML Vial IV.PUSH PRN (10:00)
[2018-04-20] MEDS: Lisinopril 10 MG Tablet PO SCH (10:00)
[2018-04-20] MEDS: levETIRAcetam 500 MG Tablet PO SCH ×2 (10:00→21:20)
--- NOTE | 2018-04-20 10:31 | ECG ---
Date Performed: 04/19/2018 Time Performed: 16:00:44 PTAGE: 68 years EKG: Sinus rhythm NORMAL ECG NO PREVIOUS TRACING DOCTOR: Dutch Cline Interpretating Date/Time 04/20/2018 10:28:18
[2018-04-20] MEDS: QUEtiapine 25 MG Tablet PO SCH (21:21)
[2018-04-21] MEDS: Sod Chloride 0.9% Inj 1,000 ML IV.CONT SCH ×2 (01:02→10:59)
[2018-04-21] MEDS: Lisinopril 10 MG Tablet PO SCH (09:33)
[2018-04-21] MEDS: levETIRAcetam 500 MG Tablet PO SCH ×2 (09:33→21:57)
[2018-04-21] MEDS: Insulin NovoLOG Aspart Correctional Sugar Inj SQ SCH ×4 (09:38→21:57)
--- NOTE | 2018-04-21 10:45 | P.PNFP ---
Subjective Interval history: Patient responding in one word answers to my questions. She denies any pain or problems or questions or concerns. She reports that she would like to go home. She reports that she feels safe at home with her daughter. She gives me permission to perform a physical exam. Upon re- evaluation later in the morning, patient is again not verbally responsive and she began to cry. 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 <Dino Dawson - 04/21/18 10:53> Results - Labs Result diagrams: 04/20/18 06:32 04/20/18 06:32 <ChinoAlbertoRoxanna M - 04/21/18 16:18> Abnormal lab results 04/20/18 04/20/18 04/21/18 Range/Units 17:30 21:17 04:47 POC Glucose 45 L* 142 H 117 H (68-110) mg/dl 04/21/18 Range/Units 09:38 POC Glucose 131 H (68-110) mg/dl <ChinoRoxanna Duong - 04/21/18 16:18> Abnormal lab results 04/20/18 04/20/18 04/21/18 Range/Units 17:30 21:17 04:47 POC Glucose 45 L* 142 H 117 H (68-110) mg/dl 04/21/18 Range/Units 09:38 POC Glucose 131 H (68-110) mg/dl <EuniceChristofer - 04/21/18 10:45> Physical Exam Vital signs: Vital Signs 04/20/18 19:58 04/20/18 20:00 04/21/18 02:10 Temperature 98.7 F Pulse Rate 66 Respiratory Rate 16 18 18 Blood Pressure 170/72 H Pulse Oximetry 96 04/21/18 06:58 04/21/18 08:42 04/21/18 11:56 Temperature 98.6 F 98.0 F Pulse Rate 79 80 Respiratory Rate 18 20 Blood Pressure 166/77 H 197/87 H Pulse Oximetry 92 L 98 98 Intake & Output 04/20/18 04/21/18 04/21/18 18:59 06:59 18:59 Intake Total 1200 / 1200 1100 / 1100 1000 / 1000 Output Total 50 / 50 Balance 1200 / 1200 1050 / 1050 1000 / 1000 Intake: IV 1200 / 1200 1100 / 1100 1000 / 1000 NS Inj 1,000 ML @ 100 mls/hr IV 1000 / 1000 1000 / 1000 900 / 900 .CONT .Q10H [facility] Rx#:[id number] Ofirmev Inj 1,000 mg In 100 ml 200 / 200 100 / 100 100 / 100 @ 400 mls/hr IV.SIG Q8H [facility] Rx# :[id number] Output: Urine 50 / 50 <Roxanna Magana - 04/21/18 16:18> Vital Signs 04/20/18 12:00 04/20/18 16:00 04/20/18 19:58 Temperature 98.6 F 98.7 F 98.7 F Pulse Rate 71 66 66 Respiratory Rate 16 16 16 Blood Pressure 138/70 129/67 170/72 H Pulse Oximetry 94 L 90 L 96 04/20/18 20:00 04/21/18 02:10 04/21/18 06:58 Temperature 98.6 F Pulse Rate 79 Respiratory Rate 18 18 18 Blood Pressure 166/77 H Pulse Oximetry 92 L 04/21/18 08:42 Temperature Pulse Rate Respiratory Rate Blood Pressure Pulse Oximetry 98 Intake & Output 04/20/18 04/21/18 04/21/18 18:59 06:59 18:59 Intake Total 1200 / 1200 1100 / 1100 900 / 900 Output Total 50 / 50 Balance 1200 / 1200 1050 / 1050 900 / 900 Intake: IV 1200 / 1200 1100 / 1100 900 / 900 NS Inj 1,000 ML @ 100 mls/hr IV 1000 / 1000 1000 / 1000 900 / 900 .CONT .Q10H [facility] Rx#:[id number] Ofirmev Inj 1,000 mg In 100 ml 200 / 200 100 / 100 @ 400 mls/hr IV.SIG Q8H [facility] Rx# :[id number] Output: Urine 50 / 50 <Dino Dawson - 04/21/18 10:45> Narrative: Exam Narrative: GENERAL: Awake, initially patient is responding to my questions with one word answers. Upon re-evaluation, she is tearful, does not answer questions verbally. SKIN: Focused skin assessment warm/dry. HEAD: Atraumatic. Normocephalic. EYES: Pupils equal and round. No scleral icterus. No injection or drainage. ENT: No nasal bleeding or discharge. Mucous membranes pink and moist. NECK: Trachea midline. No JVD. CARDIOVASCULAR: Regular rate and rhythm with murmur appreciated. RESPIRATORY: No accessory muscle use. Clear to auscultation. Breath sounds equal bilaterally. GASTROINTESTINAL: Abdomen soft, non-tender, nondistended. MUSCULOSKELETAL: No obvious deformities. No clubbing. No cyanosis. No edema. Right LE amputation. NEUROLOGICAL: Awake, but does not answer questions. No obvious cranial nerve deficits. Motor grossly within normal limits. PSYCHIATRIC: inappropriate mood and affect; unable to assess insight and judgment <Dino Dawson - 04/21/18 10:53> - Urinary Catheter Management Straight Cath placed during this visit: no <ChinoRoxanna Ad - 04/21/18 16:18> yes <Dino Dawson - 04/21/18 10:53> Reason for continuing: Not indwelling catheter <Dino Dawson - 04/21/18 10 :45> Insertion date: 04/19/18 <Dino Dawson - 04/21/18 10:45> Insertion time: 18:21 <Dino Dawson - 04/21/18 10:45> Assessment and Plan - Assessment (1) Altered mental status Code(s): R41.82 - Altered mental status, unspecified Status: Acute (2) Clavicle fracture Code(s): S42.009A - Fracture of unspecified part of unspecified clavicle, initial encounter for closed fracture Status: Acute (3) Dementia Code(s): F03.90 - Unspecified dementia without behavioral disturbance Status: Acute (4) Type 2 diabetes mellitus Code(s): E11.9 - Type 2 diabetes mellitus without complications Status: Acute (5) Seizures Code(s): R56.9 - Unspecified convulsions Status: Acute (6) HTN (hypertension) Code(s): I10 - Essential (primary) hypertension Status: Acute (7) Hyperlipidemia Code(s): E78.5 - Hyperlipidemia, unspecified Status: Acute (8) Anxiety Code(s): F41.9 - Anxiety disorder, unspecified Status: Acute (9) Insomnia Code(s): G47.00 - Insomnia, unspecified Status: Acute (10) Nutrition, metabolism, and development symptoms Code(s): R63.8 - Other symptoms and signs concerning food and fluid intake Status: Acute <Roxanna Magana Ad - 04/21/18 16:18> (1) Altered mental status Code(s): R41.82 - Altered mental status, unspecified Status: Acute Plan: 68 yr old F w/ hx of right LE amputation due to PVD, dementia, diabetes, hypertension, non-Hodgkin's lymphoma in remission since 2008, and seizures ( last seizure was in 2007) presents to the ED for altered mental status. Medical work up negative. Most likely diagnosis at this time, especially in the context of patient presenting to the ED with a clavicle fracture on 04/18/18, is that her pain is causing delirium. Thus, plan today to better treat her pain. Differential diagnosis: Dementia versus delirium secondary to undertreated pain or polypharmacy versus TIA/stroke versus seizures versus metastatic cancer Ruled out: UTI, pneumonia, hemorrhagic stroke, mass effect, hypoglycemia, thyroid problems, HI Plan: Tylenol 1g IV q8h scheduled Toradol 15 mg IV q6h devon Stopped all medications that could cause AMS, including Ativan and morphine Patient passed bedside swallow study Neurochecks q4h MRI and EEG ordered Psychiatry consulted Consider neuro consult if needed Added baby aspirin to high-intensity statin for remote cerebral infarcts Workup: Vitals wnl CBC wnl CMP demonstrates creatinine of 1.17, do not know patient's baseline, otherwise normal Troponin less than 0.02 EKG demonstrates sinus rhythm CXR negative for acute cardiopulmonary disease UA negative UDS negative TSH, T4 wnl Head CT demonstrates no focal or acute intracranial hemorrhage. Diffuse bilateral cortical atrophy. 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 A few small old infarct in the left basal ganglia. (2) Clavicle fracture Code(s): S42.009A - Fracture of unspecified part of unspecified clavicle, initial encounter for closed fracture Status: Acute Plan: Right displaced clavicle fracture Patient told to follow up with Dr. Wynn early next week [employer] consulted to apply figure-8 shoulder sling Pain control as above (3) Dementia Code(s): F03.90 - Unspecified dementia without behavioral disturbance Status: Acute Plan: Currently has dementia. will likely need outpatient neuro followup (4) Type 2 diabetes mellitus Code(s): E11.9 - Type 2 diabetes mellitus without complications Status: Acute Plan: Continue home glimepiride 2mg PO AC breakfast Low dose SSI (5) Seizures Code(s): R56.9 - Unspecified convulsions Status: Acute Plan: Keppra level ordered and pending continue levetiracetam 500mg BID (6) HTN (hypertension) Code(s): I10 - Essential (primary) hypertension Status: Acute Plan: Continue home lisinopril 10mg po daily clonidine 0.1mg PRN for BP>180/100 (7) Hyperlipidemia Code(s): E78.5 - Hyperlipidemia, unspecified Status: Acute Plan: Continue atorvastatin 40mg PO QPM (8) Anxiety Code(s): F41.9 - Anxiety disorder, unspecified Status: Acute Plan: Continue Ativan 1mg PO daily (9) Insomnia Code(s): G47.00 - Insomnia, unspecified Status: Acute Plan: continue Seroquel 50mg PO HS (10) Nutrition, metabolism, and development symptoms Code(s): R63.8 - Other symptoms and signs concerning food and fluid intake Status: Acute Plan: Fluids: stop IVF Diet: Diabetic diet Electrolytes: Monitor replace as needed Vitals every 4, monitor I's and O's DVT prophylaxis: SCDs, chemical ppx contraindicated with recent clavicle fracture. <Dino Dawson - 04/21/18 10:50> - Assessment and Plan Discussed Condition With: Dr. Magana <Dino Dawson - 04/21/18 10:53> - Attending Attestation The exam, history, and the medical decision-making described in the above note were completed with the assistance of the resident physician. I reviewed and agree with the findings presented. I attest that I had a [id number] encounter with the patient on the same day, and personally performed and documented my assessment and findings in the medical record. per Psychiatry note, pt may benefit from Psychiatric stay once medically clear. unfortunately, we have been unable to reach her daughter to get a better baseline. <Roxanna Magana - 04/21/18 16:18> <Dino Dawson - Last Filed: 04/21/18 10:50> (1) Altered mental status Qualifiers: Altered mental status type: unspecified Qualified Code(s): R41.82 - Altered mental status, unspecified (2) Clavicle fracture Qualifiers: Fracture type: closed Laterality: right <Roxanna Magana - Last Filed: 04/21/18 16:18> (1) Altered mental status Qualifiers: Altered mental status type: unspecified Qualified Code(s): R41.82 - Altered mental status, unspecified (2) Clavicle fracture Qualifiers: Fracture type: closed Laterality: right <Dino Dawson - Last Filed: 04/21/18 10:50> (1) Altered mental status Qualifiers: Altered mental status type: unspecified Qualified Code(s): R41.82 - Altered mental status, unspecified (2) Clavicle fracture Qualifiers: Fracture type: closed Laterality: right <Roxanna Magana - Last Filed: 04/21/18 16:18> (1) Altered mental status Qualifiers: Altered mental status type: unspecified Qualified Code(s): R41.82 - Altered mental status, unspecified (2) Clavicle fracture Qualifiers: Fracture type: closed Laterality: right
--- NOTE | 2018-04-21 11:16 | MG ---
cc: Dutch Mehta MD EEG NUMBER: [id number] This is a 68-year-old with bizarre behavior, anxiety. MEDICATIONS: 1. Lexapro 2. Keppra. 3. Prinivil. 4. Ativan. 5. Morphine. Recording shows diffuse symmetric rhythm, 78 Hz, 50 microvolts. No epileptiform or seizure activity is noted. No hemisphere asymmetries are seen. At times, some diffuse 5 Hz slowing is seen. No epileptiform or seizure activity is noted. No hemisphere asymmetries are seen. Photic stimulation performed without significant posterior driving. The patient fell asleep but did not reach stage II sleep. IMPRESSION: Some mild diffuse theta slowing. Otherwise, a normal electroencephalogram. No evidence for a focal or diffuse abnormality. Dutch Mehta MD DJM/rm , 09:28 AM , 09:31 AM
[2018-04-21] MEDS: Ketorolac Inj 30 MG/ML (IVP) Vial IV.PUSH SCH ×2 (12:27→17:59)
--- NOTE | 2018-04-21 15:49 | P.CONPSY ---
Provisional Diagnosis Admission Date: April 19, 2018 17:59 History of Present Illness Service: psychiatrty Consult date: 04/21/18 Reason for Consult: AMS Primary Care Provider: Abhijit Fox MD, R3 Chief Complaint: AMS History of Present Illness: This is a request for a psychiatric consult. Documentation was reviewed, case was discussed with nursing and patient was evaluated. Patient is a 68-year-old female with a history of dementia per chart. We are consulted today to evaluate her change in mental status and make any medication recommendations. Patient was admitted to the hospital at the request of her daughter given she has had recent change in behavior. Patient has been acting bizarre sleeping in the hallways in her wheelchair multiple times throughout the night. Staff has noticed patient being labile, crying and internally stimulated. For this interview patient is minimally interactive. She is alert and oriented x1. She was previously giving staff yesterday no answers but from my interview she is mute for most of the questions. A phone call was placed to her daughter and there was no answer. Past psych: Unknown Past medical: See chart Past Famhx: Unknown Past Social: Unknown otherwise patient has a daughter Review of Systems All other systems reviewed negative except as stated in HPI PMFSH - History History Provided By: Family Member - Medical History Medical History: Medical History (Last Reviewed 04/21/18 @ 15:47 by Fabiano Rojas DO) Anxiety History of stroke Dementia Diabetes Gout H/O fracture of wrist HTN (hypertension) High cholesterol Non-Hodgkin lymphoma - Surgical History Surgical History: Surgical History (Last Reviewed 04/19/18 @ 17:40 by Jayda Hendrickson MD) Above knee amputation of right lower extremity - Family History Family History: Family History (Last Updated 04/19/18 @ 19:29 by Clare Wilson MD, R2) Father Heart disease Brother Leukemia - Tobacco History Second Hand Smoke Exposure: Yes Tobacco Use In Past 30 Days: Yes Smoking Status: Current every day smoker Tobacco Type: Cigarettes - Alcohol History How Often Do You Have a Drink Containing Alcohol: Never - Substance Use History Substance History: Unable to Obtain - Travel History Recent Travel in the [place] Within the Last 8 Weeks: No Recent Travel Out of the Country Within the Last 8 Weeks: No - Immunization History Tetanus Immunization: Unsure Medications and Allergies Active Medications: Active Medications Aspirin (Aspirin Chew) 81 mg PO DAILY [facility] Last Admin: 04/21/18 09:33 Dose: 81 mg Atorvastatin Calcium (Lipitor) 40 mg PO QPM [facility] Last Admin: 04/20/18 18:17 Dose: Not Given Clonidine HCl (Catapres) 0.1 mg PO Q6H PRN PRN Reason: SEE LABEL COMMENTS Last Admin: 04/21/18 12:28 Dose: 0.1 mg Dextrose (D50w Vial) 50 ml IV.PUSH UNSCH PRN PRN Reason: PER HYPOGLYCEMIA PROTOCOL Last Admin: 04/20/18 17:35 Dose: 50 ml Escitalopram Oxalate (Lexapro) 20 mg PO DAILY [facility] Last Admin: 04/21/18 09:33 Dose: 20 mg Glimepiride (Amaryl) 2 mg PO AC BREAKFAST [facility] Last Admin: 04/20/18 10:00 Dose: 2 mg Glucagon (Glucagon Inj) 1 mg OTHER PRN PRN PRN Reason: for Hypoglycemia Protocol Acetaminophen (Ofirmev Inj) 1,000 mg in 100 mls @ 400 mls/hr IV.SIG Q8H [facility] Last Infusion: 04/21/18 11:39 Dose: Infused Insulin Aspart (Novolog Insulin Correctional Sugar Inj) 0 unit SQ ACHS [facility]; Protocol Last Admin: 04/21/18 12:20 Dose: Not Given Ketorolac Tromethamine (Toradol Inj) 15 mg IV.PUSH Q6H [facility] Stop: 04/26/18 12:29 Last Admin: 04/21/18 12:27 Dose: 15 mg Levetiracetam (Keppra) 500 mg PO BID [facility] Last Admin: 04/21/18 09:33 Dose: 500 mg Lisinopril (Prinivil) 10 mg PO DAILY [facility] Last Admin: 04/21/18 09:33 Dose: 10 mg Ondansetron HCl (Zofran Inj) 4 mg IV.PUSH Q6H PRN PRN Reason: NAUSEA OR VOMITING Quetiapine Fumarate (Seroquel) 50 mg PO HS [facility] Last Admin: 04/20/18 21:21 Dose: 50 mg Sodium Chloride (Ns Flush) 2 ml IV.FLUSH PRN PRN PRN Reason: FLUSH AFTER USING IV ACCESS Sodium Chloride (Ns Flush) 2 ml IV.FLUSH BID [facility] Last Admin: 04/21/18 09:33 Dose: Not Given Allergies Allergy/AdvReac Type Severity Reaction Status Date / Time iodine Allergy Swelling Verified 04/19/18 15:50 Home Medications Medication Instructions Recorded Confirmed Type glimepiride 2 mg PO QAM 04/18/18 04/19/18 History lisinopril 10 mg PO DAILY 04/18/18 04/19/18 History lorazepam 0.5 mg PO DAILY 04/18/18 04/19/18 History metformin 500 mg PO DAILY 04/18/18 04/19/18 History phenobarbital 15 mg PO DAILY PRN 04/18/18 04/18/18 History simvastatin 80 mg PO QPM 04/18/18 04/19/18 History tramadol 150 mg PO PRN 04/18/18 04/19/18 History escitalopram oxalate 04/19/18 04/19/18 History gabapentin 04/19/18 04/19/18 History levetiracetam 04/19/18 History quetiapine 04/19/18 04/19/18 History Exam Vital signs: Vital Signs 04/20/18 16:00 04/20/18 19:58 04/20/18 20:00 Temperature 98.7 F 98.7 F Pulse Rate 66 66 Respiratory Rate 16 16 18 Blood Pressure 129/67 170/72 H Pulse Oximetry 90 L 96 04/21/18 02:10 04/21/18 06:58 04/21/18 08:42 Temperature 98.6 F Pulse Rate 79 Respiratory Rate 18 18 Blood Pressure 166/77 H Pulse Oximetry 92 L 98 04/21/18 11:56 Temperature 98.0 F Pulse Rate 80 Respiratory Rate 20 Blood Pressure 197/87 H Pulse Oximetry 98 Intake & Output 04/20/18 04/21/18 04/21/18 18:59 06:59 18:59 Intake Total 1200 / 1200 1100 / 1100 1000 / 1000 Output Total 50 / 50 Balance 1200 / 1200 1050 / 1050 1000 / 1000 Intake: IV 1200 / 1200 1100 / 1100 1000 / 1000 NS Inj 1,000 ML @ 100 mls/hr IV 1000 / 1000 1000 / 1000 900 / 900 .CONT .Q10H [facility] Rx#:[id number] Ofirmev Inj 1,000 mg In 100 ml 200 / 200 100 / 100 100 / 100 @ 400 mls/hr IV.SIG Q8H [facility] Rx# :[id number] Output: Urine 50 / 50 Mental Status Examination Appearance: Appropriate Consciousness: Clouded Orientation: Person Motor Activity: Abnormal gait Speech: Hesitant Language: Adequate Fund of Knowledge: Poor Attention and Concentration: Inadequate Memory: Impaired Mood: Sad Affect: Blunt Thought Process & Associations: Disorganized Thought Content: Appropriate Hallucination Type: None Delusion Type: None Suicidal Ideation: Yes (Unknown) Suicidal Plan: No Suicidal Intention: No Homicidal Ideation: No Homicidal Plan: No Homicidal Intention: No Insight: Poor Judgment: Poor Assessment and Plan - Assessment (1) Unspecified dementia with behavioral disturbance Code(s): F03.91 - Unspecified dementia with behavioral disturbance Status: Acute - Plan Plan: It is unclear if patient's recent change in mental status is due to delirium from her kidney injury or progression of her dementia. Given her daughter's concern with her change in her mother we can recommend admission to the psychiatric unit for further observation after she is medically cleared Justification for Continued Inpatient Stay: Patient would decompensate in a less restrictive setting (1) Unspecified dementia with behavioral disturbance Qualifiers: Alzheimer's disease onset: early-onset
[2018-04-21] MEDS ORDERED: Gadobutrol PF 7.5 MMOL/7.5 ML Vial (for RAD) IV.SIG ONE (16:03)
--- NOTE | 2018-04-21 16:19 | MR ---
EXAM DATE: 04/21/2018 4:15 PM EST AGE/SEX: 68 years / Female INDICATIONS: Confusion. CLINICAL DATA: This is the patient's initial encounter. Patient reports that signs and symptoms have been present for 1 day and indicates a pain score of 0/10. MEDICAL/SURGICAL HISTORY: Dementia. Diabetes mellitus type II. Hypertension. Non hodgkins ly mphoma. . ORIF wrist. Leg amputation. COMPARISON: [facility] [place], CT HEAD W/O CONTRAST, 04/19/2018. . TECHNIQUE: Multiplanar, multisequence examination of the brain was performed without and with 6 ml Ga davist (gadobutrol) contrast as a single exam dose. FINDINGS: There is no evidence for intracranial hemorrhage, mass effect, mass lesions, edema, or extra-axial fl uid collections. There are no signs of acute infarction for technique. The diffusion portion, and p ostcontrast portion are unremarkable. Moderate degree of brain atrophy is seen. Moderate periventri cular white matter changes are seen nonspecific mostly consistent with chronic small vessel ischemic changes. CONCLUSION: Chronic small vessel ischemic and atrophic changes. Electronically signed by: Farideh Anand MD Board Certified Radiologist 04/21/2018 4:18 PM EST
[2018-04-21] MEDS: QUEtiapine 25 MG Tablet PO SCH (21:57)
[2018-04-22] MEDS: Ketorolac Inj 30 MG/ML (IVP) Vial IV.PUSH SCH ×5 (00:21→20:21)
--- NOTE | 2018-04-22 08:59 | P.PNFP ---
Subjective Interval history: 68 yr old F w/ hx of right LE amputation due to PVD, dementia, diabetes, hypertension, non-Hodgkin's lymphoma in remission since 2008, and seizures ( last seizure was in 2007) admitted with altered mental status. This morning she her mental state is much the same as previously. She is alert, occasionally will nod in response to questions, but does not speak and is intermittently tearful, especially when asked about her mood. Specifically denies chest pain, abdominal pain, shortness of breath. She notes arm pain due to her clavicle fracture but will not comment on severity. <Jordan Torres S - 04/22/18 08:59> Results - Labs Result diagrams: 04/20/18 06:32 04/20/18 06:32 <Dino Rosenberg - 04/22/18 17:27> Abnormal lab results 04/21/18 Range/Units 09:38 POC Glucose 131 H (68-110) mg/dl <Jordan Torres S - 04/22/18 08:59> - Imaging Impressions Head MRI 04/21/18 00:00 CONCLUSION: Chronic small vessel ischemic and atrophic changes. <Jordan Torres S - 04/22/18 08:59> Physical Exam Vital signs: Vital Signs 04/21/18 20:00 04/22/18 00:00 04/22/18 04:00 Temperature 97.9 F 98.0 F 98.0 F Pulse Rate 66 67 67 Respiratory Rate 16 18 18 Blood Pressure 199/91 H 200/88 H 234/99 H Pulse Oximetry 98 99 98 04/22/18 07:25 04/22/18 10:05 04/22/18 15:08 Temperature 98.1 F 98.3 F Pulse Rate 70 78 Respiratory Rate 16 16 Blood Pressure 195/88 H 206/93 H Pulse Oximetry 99 97 Intake & Output 04/21/18 04/22/18 04/22/18 18:59 06:59 18:59 Intake Total 1100 / 1100 100 / 100 100 / 100 Output Total 100 / 100 200 / 200 Balance 1100 / 1100 0 / 0 -100 / -100 Intake: IV 1100 / 1100 100 / 100 100 / 100 NS Inj 1,000 ML @ 100 mls/hr IV 900 / 900 .CONT .Q10H [facility] Rx#:[id number] Ofirmev Inj 1,000 mg In 100 ml 200 / 200 100 / 100 100 / 100 @ 400 mls/hr IV.SIG Q8H [facility] Rx# :[id number] Output: Urine 100 / 100 200 / 200 Other: # Bowel Movements 1 <Dino Rosenberg - 04/22/18 17:27> Vital Signs 04/21/18 11:56 04/21/18 17:04 04/21/18 20:00 Temperature 98.0 F 98.1 F 97.9 F Pulse Rate 80 70 66 Respiratory Rate 20 20 16 Blood Pressure 197/87 H 169/76 H 199/91 H Pulse Oximetry 98 96 98 04/22/18 00:00 04/22/18 04:00 04/22/18 07:25 Temperature 98.0 F 98.0 F 98.1 F Pulse Rate 67 67 70 Respiratory Rate 18 18 16 Blood Pressure 200/88 H 234/99 H 195/88 H Pulse Oximetry 99 98 Intake & Output 04/21/18 04/22/18 04/22/18 18:59 06:59 18:59 Intake Total 1100 / 1100 100 / 100 Output Total 100 / 100 Balance 1100 / 1100 0 / 0 Intake: IV 1100 / 1100 100 / 100 NS Inj 1,000 ML @ 100 mls/hr IV 900 / 900 .CONT .Q10H [facility] Rx#:[id number] Ofirmev Inj 1,000 mg In 100 ml 200 / 200 100 / 100 @ 400 mls/hr IV.SIG Q8H [facility] Rx# :[id number] Output: Urine 100 / 100 Other: # Bowel Movements 1 <Jordan Torres S - 04/22/18 08:59> - Constitutional no acute distress, average body habitus <Jordan Torres S - 04/22/18 08:59> Comments: lying in bed turned onto her right side <Jordan Torres S - 04/22/18 08:59> - Routine HEENT Exam Head: Present: normocephalic, atraumatic <Jordan Torres S - 04/22/18 08:59> Eye: Present: EOMI, PERRL <Jordan Torres S - 04/22/18 08:59> ENT: Present: mucous membranes moist <Jordan Torres S - 04/22/18 08:59> - Routine Respiratory Exam Present: CTA bilaterally. Absent: accessory muscle use, wheezes, crackles < Jordan Torres 04/22/18 08:59> - Routine Cardiovascular Exam Present: RRR, S1, S2. Absent: murmur <Jordan Torres 04/22/18 08:59> - Routine Extremities Exam Absent: cyanosis, edema <Jordan Torres 04/22/18 08:59> Comments: s/p RLE amputation just above knee <Jordan Torres 04/22/18 08:59> - Routine Neurological Exam Present: alert. Absent: oriented X3 <Jordan Torres 04/22/18 08:59> - Routine Psychiatric Exam Comments: Mood: Does not state Affect: Sad/tearful intermittently and flattened Speech: Says yes or no occasionally, usually just nods, sometimes doesn't even do that. Essentially does not speak. Eye contact: Poor Attention/concentration: Poor Thought process: Difficult to assess but does appear to be responding to internal stimuli Thought content: Unable to assess Appearance: Normal SI/HI: Unable to assess <Jordan Torres 04/22/18 08:59> - Urinary Catheter Management Straight Cath placed during this visit: no <Dino Rosenberg Davida - 04/22/18 17:15> yes <Jordan Torres 04/22/18 08:59> Reason for continuing: Not indwelling catheter <Jordan Torres 04/22/18 08: 59> Insertion date: 04/19/18 <Jordan Torres 04/22/18 08:59> Insertion time: 18:21 <Jordan Torres 04/22/18 08:59> Assessment and Plan - Assessment (1) Altered mental status Code(s): R41.82 - Altered mental status, unspecified Status: Acute (2) Clavicle fracture Code(s): S42.009A - Fracture of unspecified part of unspecified clavicle, initial encounter for closed fracture Status: Acute (3) Dementia Code(s): F03.90 - Unspecified dementia without behavioral disturbance Status: Acute (4) Type 2 diabetes mellitus Code(s): E11.9 - Type 2 diabetes mellitus without complications Status: Acute (5) Seizures Code(s): R56.9 - Unspecified convulsions Status: Acute (6) HTN (hypertension) Code(s): I10 - Essential (primary) hypertension Status: Acute (7) Hyperlipidemia Code(s): E78.5 - Hyperlipidemia, unspecified Status: Acute (8) Anxiety Code(s): F41.9 - Anxiety disorder, unspecified Status: Acute (9) Insomnia Code(s): G47.00 - Insomnia, unspecified Status: Acute (10) Nutrition, metabolism, and development symptoms Code(s): R63.8 - Other symptoms and signs concerning food and fluid intake Status: Acute <Dino Rosenberg - 04/22/18 17:27> (1) Altered mental status Code(s): R41.82 - Altered mental status, unspecified Status: Acute Plan: Patient does not appear to be in much pain on exam, though tearfulness is possibly sign of some pain as component would not expect her mental status exam to be this way just from pain. Neurochecks unremarkable except for speech changes as noted. Differential diagnosis: Dementia versus delirium secondary to undertreated pain or polypharmacy versus TIA/stroke versus seizures versus primary psychiatric disorder Ruled out: UTI, pneumonia, hemorrhagic stroke, mass effect, hypoglycemia, thyroid problems, UT Plan: Psychiatry consulted, appreciate recs To accept patient for inpatient psychiatric care once medically cleared From our standpoint, medical work-up negative and patient is cleared for discharge to psychiatric care Pain regimen on discharge: Tylenol 650 mg TID and ibuprofen 600 mg TID PRN moderate pain, [place] 5 mg PRN breakthrough Stopped all medications that could cause AMS, including Ativan and morphine Patient passed bedside swallow study Continue baby aspirin and high-intensity statin for remote cerebral infarcts Workup: Vitals wnl CBC wnl CMP demonstrates creatinine of 1.17, do not know patient's baseline, otherwise normal Troponin less than 0.02 EKG demonstrates sinus rhythm CXR negative for acute cardiopulmonary disease UA negative UDS negative TSH, T4 wnl Head CT demonstrates no focal or acute intracranial hemorrhage. Diffuse bilateral cortical atrophy. 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 A few small old infarct in the left basal ganglia. (2) Clavicle fracture Code(s): S42.009A - Fracture of unspecified part of unspecified clavicle, initial encounter for closed fracture Status: Acute Plan: Right displaced clavicle fracture Patient told to follow up with Dr. Wynn early next week [employer] consulted to apply figure-8 shoulder sling, still not in place Pain control as above (3) Dementia Code(s): F03.90 - Unspecified dementia without behavioral disturbance Status: Acute Plan: Currently has dementia, may benefit from outpatient neurology consult depending on progress with psychiatry (4) Type 2 diabetes mellitus Code(s): E11.9 - Type 2 diabetes mellitus without complications Status: Acute Plan: Some near-hypoglycemic episodes Discontinue glimeperide on DC Increase metformin to 1000 mg CASEY daily (5) Seizures Code(s): R56.9 - Unspecified convulsions Status: Acute Plan: continue levetiracetam 500mg BID (6) HTN (hypertension) Code(s): I10 - Essential (primary) hypertension Status: Acute Plan: Continue home lisinopril 10mg po daily clonidine 0.1mg PRN for BP>180/100 (7) Hyperlipidemia Code(s): E78.5 - Hyperlipidemia, unspecified Status: Acute Plan: Continue atorvastatin 40mg PO QPM, resume simvastatin on discharge (8) Anxiety Code(s): F41.9 - Anxiety disorder, unspecified Status: Acute Plan: Psychiatric meds as above (9) Insomnia Code(s): G47.00 - Insomnia, unspecified Status: Acute Plan: continue Seroquel 50mg PO HS (10) Nutrition, metabolism, and development symptoms Code(s): R63.8 - Other symptoms and signs concerning food and fluid intake Status: Acute Plan: Fluids: PO only; today RN reporting some darkened urine and poor PO intake, appears well hydrated on exam, would recommend monitoring and encouraging PO fluid intake, which should improve once her mental state is addressed Diet: Diabetic diet Electrolytes: Monitor replace as needed Vitals every 4, monitor I's and O's DVT prophylaxis: SCDs, chemical ppx contraindicated with recent clavicle fracture. <Jordan Torres - 04/22/18 08:46> - Assessment and Plan Discharge Planning: To psychiatric care today <Jordan Torres - 04/22/18 08:59> - Attending Attestation The exam, history, and the medical decision-making described in the above note were completed with the assistance of the resident physician. I reviewed and agree with the findings presented. I attest that I had a [id number] encounter with the patient on the same day, and personally performed and documented my assessment and findings in the medical record. I evaluated patient independently this afternoon. She presented with altered mental status. Psychiatry evaluated with us this afternoon, and the thought is that she could have catatonia. Plan is to transfer her to the med-psych floor and administer benzodiazepines to treat the catatonia. If she improves significantly with the benzodiazepines, that is a good sign that she does indeed have catatonia. Other workup has been essentially negative. She also has right clavicle fracture. Plan is to place her arm in sling to help stabilize the fracture. She has follow up arranged with orthopedic surgery after discharge. <Dino Rosenberg - 04/22/18 17:15> <Jordan Torres - Last Filed: 04/22/18 08:46> (1) Altered mental status Qualifiers: Altered mental status type: unspecified Qualified Code(s): R41.82 - Altered mental status, unspecified (2) Clavicle fracture Qualifiers: Fracture type: closed Laterality: right <Dino Rosenberg - Last Filed: 04/22/18 17:27> (1) Altered mental status Qualifiers: Altered mental status type: unspecified Qualified Code(s): R41.82 - Altered mental status, unspecified (2) Clavicle fracture Qualifiers: Fracture type: closed Laterality: right <TorresJordan S - Last Filed: 04/22/18 08:46> (1) Altered mental status Qualifiers: Altered mental status type: unspecified Qualified Code(s): R41.82 - Altered mental status, unspecified (2) Clavicle fracture Qualifiers: Fracture type: closed Laterality: right <Dino Rosenberg - Last Filed: 04/22/18 17:27> (1) Altered mental status Qualifiers: Altered mental status type: unspecified Qualified Code(s): R41.82 - Altered mental status, unspecified (2) Clavicle fracture Qualifiers: Fracture type: closed Laterality: right
[2018-04-22] MEDS: Insulin NovoLOG Aspart Correctional Sugar Inj SQ SCH ×4 (09:15→22:07)
[2018-04-22] MEDS: Lisinopril 10 MG Tablet PO SCH ×2 (09:16→09:42)
[2018-04-22] MEDS: levETIRAcetam 500 MG Tablet PO SCH ×2 (09:16→22:07)
--- NOTE | 2018-04-22 15:18 | P.PNPSY ---
Subjective Remarks: The patient is a 68 year-old woman, domiciled in [facility] with daughter, supported by SS, with PPHx of depression, anxiety, 1 hospitalization due to post part depression, no SAs, she is Lexapro 20 mg and Seroquel 50 me hs prescribed by PCP, PMHx of lymphoma, DM, who was to ER due to fall and AMS. She was seen by Dr. Rojas on consult and he recommended admission. on reevaluation today in find a patient who is stuporous, flat affect, quite stiff , oppositional, with a prominent decreased speech production almost mute, with marked waxy flexibility. She has not been eating and as per daughter for the last 4 days "basically being another person".. Mental Status Examination Appearance: Appropriate Consciousness: Clouded Orientation: Person Motor Activity: Abnormal gait Speech: Hesitant Language: Adequate Fund of Knowledge: Poor Attention and Concentration: Inadequate Memory: Impaired Mood: Sad Affect: Blunt Thought Process & Associations: Disorganized Thought Content: Appropriate Hallucination Type: None Delusion Type: None Suicidal Ideation: Yes (Unknown) Suicidal Plan: No Suicidal Intention: No Homicidal Ideation: No Homicidal Plan: No Homicidal Intention: No Insight: Poor Judgment: Poor Assessment and Plan - Assessment (1) Unspecified dementia with behavioral disturbance Code(s): F03.91 - Unspecified dementia with behavioral disturbance Status: Acute - Plan Plan: Patient seems to be acutely catatonia: flat affect, mutism, waxy flexibility, autonomic instability. Continue Seroquel and Lexapro. Will do Ativan challenge with 2 mg IV now. If patient responds, continue Ativan 2 mg q/6ho. to be admitted in psychiatry. She i now basurto acted. Justification for Continued Inpatient Stay: to be admitted (1) Unspecified dementia with behavioral disturbance Qualifiers: Alzheimer's disease onset: early-onset
[2018-04-22] MEDS ORDERED: hydrALAZINE HCl Inj 20 MG/ML Vial IV.PUSH PRN (16:53)
[2018-04-22] MEDS: QUEtiapine 25 MG Tablet PO SCH (22:11)
--- NOTE | 2018-04-23 13:47 | P.DS ---
Date of admission: 04/19/18 17:59 Primary care physician: Abhijit Fox MD, R3 Brief History from admission: 68 yr old F w/ hx of 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 Patient was brought in by daughter. Upon arrival to the room, daughter was not at bedside. Patient was able to answer questions and was oriented to place and person. Patient was able to follow directions as well. Spoke with daughter on the phone. Daughter states that for the last couple days, patient has been "acting bizarre." Reports that last night around 1:30 AM, patient was found in the hallway sleeping in her wheelchair. Daughter proceeded to put her back to bed. Reports that when she woke up around 6 AM, patient was back in the hallway sleeping in her wheelchair. Also reports that patient is usually given her pills in a box every morning and instead of taking the morning pills patient to the night pills about 2 days ago. Daughter noticed that patient has also been less interested in smoking, which is odd because patient is a heavy smoker. In addition, daughter states that 2 days ago patient fell in the bathroom and hit the side of the tub with her right shoulder. Does not think she had her head. Patient went to the ER on 04/18 and was found to have a distal right clavicle fracture. Patient was given Rough And Ready for pain. Daughter states that she has been giving her about half pill every day. Patient had a follow-up appointment with Dr. Wynn early next week. Further reports that her mom is usually able to carry on a conversation and able to care for herself. States that her mom had this symptoms about 1 year ago when she had a UTI and was diagnosed with delirium. Patient currently does not have a neurologist. 2 months ago and daughter thinks that this might be related. Denies chest pain, shortness breath, headache, vision changes, shaking, loss of bowel or bladder control, tongue biting, trouble swallowing, dysarthria, nausea vomiting, fevers , night sweats, and weight loss. Patient update on day of discharge: 68 yr old F w/ hx of right LE amputation due to PVD, dementia, diabetes, hypertension, non-Hodgkin's lymphoma in remission since 2008, and seizures ( last seizure was in 2007) admitted with altered mental status. This morning she her mental state is much the same as previously. She is alert, occasionally will nod in response to questions, but does not speak and is intermittently tearful, especially when asked about her mood. Specifically denies chest pain, abdominal pain, shortness of breath. She notes arm pain due to her clavicle fracture but will not comment on severity. DS: Diagnosis - Discharge Diagnosis (1) Altered mental status Status: Acute (2) Clavicle fracture Status: Acute (3) Dementia Status: Acute (4) Type 2 diabetes mellitus Status: Acute (5) Seizures Status: Acute (6) HTN (hypertension) Status: Acute (7) Hyperlipidemia Status: Acute (8) Anxiety Status: Acute (9) Insomnia Status: Acute (10) Nutrition, metabolism, and development symptoms Status: Acute DS: Medications - Discharge Medications Prescriptions: hydrocodone-acetaminophen [Rough And Ready] 1 tab PO Q6HR PRN #12 tab PRN Reason: Breakthrough Pain DS: Summary Hospital Course: 68 yo female with dementia, HTN, recent clavicle fracture on 04/18 admitted for acute alteration of mental status. Neurologic imaging including head CT and MRI were unremarkable. Initially it was thought her altered mental status was due to delirium from clavicle pain, however adequate treatment of pain failed to improve her mental status. Psychiatry was consulted and felt she met inpatient psychiatric criteria, ultimately diagnosing her with catatonia. Treatment with Ativan was begun. Her hospital course was complicated only by blood pressure acutely elevated which was stabilized prior to DC to the med/psych unit. - Time Spent with Patient Total time spent providing and/or coordinating discharge services: Less than 30 minutes - Quality: VTE Deep Vein Thrombosis/Pulmonary Embolism Present on Admission: No Exam Vital signs: Vital Signs 04/22/18 15:08 04/22/18 19:12 04/22/18 20:00 Temperature 98.3 F Pulse Rate 78 Respiratory Rate 16 Blood Pressure 206/93 H 191/88 H 171/79 H Pulse Oximetry 97 99 04/22/18 21:48 Temperature 98.3 F Pulse Rate 65 Respiratory Rate 18 Blood Pressure 146/77 H Pulse Oximetry 98 Intake & Output 04/22/18 04/23/18 04/23/18 18:59 06:59 18:59 Intake Total 100 / 100 Output Total 200 / 200 Balance -100 / -100 Intake: IV 100 / 100 Ofirmev Inj 1,000 mg In 100 ml 100 / 100 @ 400 mls/hr IV.SIG Q8H [facility] Rx# :[id number] Output: Urine 200 / 200 Other: Date of Last Bowel Movement 04/22/18 Narrative: - Constitutional no acute distress, average body habitus <Jordan Torres 04/22/18 08:59> Comments: lying in bed turned onto her right side <Jordan Torres 04/22/18 08:59> - Routine HEENT Exam Head: Present: normocephalic, atraumatic <Jordan Torres 04/22/18 08:59> Eye: Present: EOMI, PERRL <Jordan Torres 04/22/18 08:59> ENT: Present: mucous membranes moist <Jordan Torres 04/22/18 08:59> - Routine Respiratory Exam Present: CTA bilaterally. Absent: accessory muscle use, wheezes, crackles < Jordan Torres 04/22/18 08:59> - Routine Cardiovascular Exam Present: RRR, S1, S2. Absent: murmur <Jordan Torres 04/22/18 08:59> - Routine Extremities Exam Absent: cyanosis, edema <Jordan Torres 04/22/18 08:59> Comments: s/p RLE amputation just above knee <Jordan Torres 04/22/18 08:59> - Routine Neurological Exam Present: alert. Absent: oriented X3 <Jordan Torres 04/22/18 08:59> - Routine Psychiatric Exam Comments: Mood: Does not state Affect: Sad/tearful intermittently and flattened Speech: Says yes or no occasionally, usually just nods, sometimes doesn't even do that. Essentially does not speak. Eye contact: Poor Attention/concentration: Poor Thought process: Difficult to assess but does appear to be responding to internal stimuli Thought content: Unable to assess Appearance: Normal SI/HI: Unable to assess <Jordan Torres 04/22/18 08:59> Results Procedures completed during hospitalization: None Completed studies during hospitalization: Chest X-Ray 04/19/18 15:53 CONCLUSION: No acute cardiopulmonary disease. Head CT 04/19/18 15:53 CONCLUSION: 1. No focal or acute intracranial hemorrhage. 2. Diffuse bilateral cortical atrophy. 3. 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 4. A few small old infarct in the left basal ganglia. Head MRI 04/21/18 00:00 CONCLUSION: Chronic small vessel ischemic and atrophic changes. Labs on day of discharge: Labs from last 24 hours 04/22/18 04/22/18 04/22/18 21:35 18:32 15:50 POC Glucose 89 82 93 - Impressions ITS Impressions Chest X-Ray 04/19/18 15:53 CONCLUSION: No acute cardiopulmonary disease. Head CT 04/19/18 15:53 CONCLUSION: 1. No focal or acute intracranial hemorrhage. 2. Diffuse bilateral cortical atrophy. 3. 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 4. A few small old infarct in the left basal ganglia. . Head MRI 04/21/18 00:00 CONCLUSION: Chronic small vessel ischemic and atrophic changes. Discharge Plan - Discharge Disposition Patient Disposition: 67 Disc To [facility] - Discharge Condition Condition: Stable - Discharge Order Discharge Orders: Discharge Order (Routine); Ordered 04/22/18 Ordered By: Jordan Torres - Discharge Details Anticipated Discharge Date: 04/22/18 - Physicians Team Primary Care Provider: Abhijit Fox Attending Provider: Dino Rosenberg Other Providers: [employer],Insurance ; Fabiano Rojas DO ; Juan Manuel Tucker MD
== END 2018-04-22 22:31 ==
LOC: NEPC 15:33 → NEDA 15:33 → NEPGCP 18:28
PROVIDERS: ADMIT Family Medicine; ATTEND Family Medicine

== ENCOUNTER 2018-04-22 20:32 | Inpatient (IN) ==
[2018-04-22] MEDS ORDERED: LORazepam 0.5 MG Tablet PO PRN (23:22)
[2018-04-22] MEDS ORDERED: Acetaminophen 325 MG Tablet PO PRN (23:24)
[2018-04-22] MEDS ORDERED: Aluminum/Magnesium/Simethacone Susp 30 ML UDC PO PRN (23:25)
[2018-04-23] MEDS ORDERED: Ibuprofen 600 MG Tablet PO PRN (01:00)
[2018-04-23] MEDS ORDERED: Dextrose 50% in Water 50 ML Vial IV.PUSH PRN (01:01)
[2018-04-23] MEDS ORDERED: Bisacodyl 10 MG Supp RECTAL PRN (01:03)
--- NOTE | 2018-04-23 01:19 | P.CONFP ---
History of Present Illness Service: [facility] residents inpatient teaching service <Dino Dawson - 04/23/18 01:18> Consult date: 04/23/18 <Dino Dawson - 04/23/18 01:18> Reason for Consult: Medical consult <Dino Dawson - 04/23/18 01:18> Primary Care Provider: UNKNOWN <Dino Rosenberg - 04/23/18 12:02> UNKNOWN <Dino Dawson - 04/23/18 01:18> History of Present Illness: 68 yr old F w/ hx of right AKA due to PVD, dementia , diabetes, hypertension, non-Hodgkin's lymphoma in remission since 2008, and seizures (last seizure was in 2007) was admitted with altered mental status. This evening her mental state is much the same as previously. She is initially asleep, but she is easily awakened. She is alert, occasionally will nod in response to questions, I can get her to speak in one word responses if I ask her yes or no questions repeatedly. She denies any complaints at this time. Patient had negative medical work up. Attempts to control her pain and prevent polypharmacy were ineffective at changing her mental state. Psychiatry was consulted and patient was diagnosed with acute catatonia and she was to be transferred to [facility]. Patient's transfer was delayed because she was hypertensive to 200s over 90s requiring IV antihypertensives. After her blood pressure was controlled, she was transferred to [facility]. Per nursing report, they were unable to get patient's mouth open to examine it let alone get her mouth open to take any oral medications. <Dino Dawson - 04/23/18 01:18> Review of Systems unobtainable due to mental condition (see HPI) <Dino Dawson - 04/23/18 01 :18> PMFSH - History History Provided By: Patient, Family Member <Dino Dawson - 04/23/18 01:18 > - Medical History Medical History: Medical History (Last Reviewed 04/21/18 @ 15:47 by Fabiano Rojas DO) Anxiety Dementia Diabetes Gout H/O fracture of wrist HTN (hypertension) High cholesterol History of stroke Non-Hodgkin lymphoma <ChetDino Davida - 04/23/18 12:02> Medical History (Last Reviewed 04/21/18 @ 15:47 by Fabiano Rojas, DO) Anxiety Dementia Diabetes Gout H/O fracture of wrist HTN (hypertension) High cholesterol History of stroke Non-Hodgkin lymphoma <Dino Dawson - 04/23/18 01:18> - Surgical History Surgical History: Surgical History (Last Reviewed 04/19/18 @ 17:40 by Jayda Hendrickson MD) Above knee amputation of right lower extremity <Dino Rosenberg - 04/23/18 12:02> Surgical History (Last Reviewed 04/19/18 @ 17:40 by Jayda Hendrickson MD) Above knee amputation of right lower extremity <Dino Dawson - 04/23/18 01:18> - Family History Family History: Family History (Last Updated 04/19/18 @ 19:29 by Clare Wilson MD, R2) Father Heart disease Brother Leukemia <Dino Rosenberg Mee 04/23/18 12:02> Family History (Last Updated 04/19/18 @ 19:29 by Clare Wilson MD, R2) Father Heart disease Brother Leukemia <Dino Dawson - 04/23/18 01:18> - Tobacco History Second Hand Smoke Exposure: Yes <Dino Dawson - 04/23/18 01:18> Tobacco Use In Past 30 Days: Yes <Dino Dawson - 04/23/18 01:18> Smoking Status: Current every day smoker <Dino Dawson - 04/23/18 01:18> Tobacco Type: Cigarettes <Dino Dawson - 04/23/18 01:18> - Alcohol History How Often Do You Have a Drink Containing Alcohol: Never <EuniceDino guzman - 01:18> - Substance Use History Substance History: Unable to Obtain <Dino Dawson - 04/23/18 01:18> - Immunization History Tetanus Immunization: Unable to Assess <Dino Dawson - 04/23/18 01:18> Hx Influenza Vaccine This Season: Unable to Assess <EuniceDino Espino - 01:18> Medications and Allergies Allergies Allergy/AdvReac Type Severity Reaction Status Date / Time iodine Allergy Swelling Verified 04/19/18 15:50 <Dino Rosenberg Mee 04/23/18 12:02> Home Medications Medication Instructions Recorded Confirmed Type glimepiride 2 mg PO QAM 04/18/18 04/19/18 History lisinopril 10 mg PO DAILY 04/18/18 04/19/18 History lorazepam 0.5 mg PO DAILY 04/18/18 04/19/18 History metformin 500 mg PO DAILY 04/18/18 04/19/18 History phenobarbital 15 mg PO DAILY PRN 04/18/18 04/18/18 History simvastatin 80 mg PO QPM 04/18/18 04/19/18 History tramadol 150 mg PO PRN 04/18/18 04/19/18 History escitalopram oxalate 04/19/18 04/19/18 History gabapentin 04/19/18 04/19/18 History levetiracetam 04/19/18 History quetiapine 04/19/18 04/19/18 History Dino Parham - 04/23/18 12:02> Active Medications: Active Medications Acetaminophen (Tylenol) 650 mg PO Q4H PRN PRN Reason: PAIN 1-5 OR TEMP > 101 Acetaminophen (Tylenol) 650 mg PO Q4H [facility] Last Admin: 04/23/18 08:04 Dose: 650 mg Hydrocodone Bitart/Acetaminophen ([place]enix 5/325) 1 tab PO Q6H PRN PRN Reason: BREAKTHROUGH PAIN Al Hydrox/Mg Hydrox/Simethicone (Mag-Al Plus Susp Liq) 30 ml PO Q6H PRN PRN Reason: DYSPEPSIA Al Hydroxide/Mg Hydroxide (Milk Of Magnesia Liq) 30 ml PO Q24H PRN PRN Reason: CONSTIPATION Al Hydroxide/Mg Hydroxide (Milk Of Magnesia Liq) 30 ml PO Q12H PRN PRN Reason: Mild Constipation Atorvastatin Calcium (Lipitor) 40 mg PO HS [facility] Bisacodyl (Dulcolax Supp) 10 mg RECTAL DAILY PRN PRN Reason: SEVERE CONSITIPATION Clonidine HCl (Catapress-Tts 0.1 Mg Patch.7d) 1 patch T-DERMAL Q7D [facility] Last Admin: 04/23/18 01:46 Dose: 1 patch Dextrose (D50w Vial) 50 ml IV.PUSH UNSCH PRN PRN Reason: PER HYPOGLYCEMIA PROTOCOL Enoxaparin Sodium (Lovenox Inj) 40 mg SQ Q24H [facility] Last Admin: 04/23/18 08:04 Dose: 40 mg Escitalopram Oxalate (Lexapro) 20 mg PO DAILY [facility] Last Admin: 04/23/18 10:10 Dose: Not Given Fenofibrate (Tricor) 145 mg PO DAILY [facility] Last Admin: 04/23/18 08:03 Dose: 145 mg Gabapentin (Neurontin) 600 mg PO BID [facility] Last Admin: 04/23/18 08:03 Dose: 600 mg Glucagon (Glucagon Inj) 1 mg OTHER PRN PRN PRN Reason: for Hypoglycemia Protocol Sodium Chloride (Ns Inj) 1,000 mls @ 100 mls/hr IV.CONT .Q10H [facility] Last Admin: 04/23/18 11:34 Dose: 100 mls/hr Ibuprofen (Motrin) 600 mg PO Q8H PRN PRN Reason: PAIN 1-10 AND/OR FEVER >101F Insulin Aspart (Novolog Insulin Correctional Sugar Inj) 0 unit SQ ACHS [facility]; Protocol Last Admin: 04/23/18 11:04 Dose: Not Given Lactulose (Lactulose Liq) 30 ml PO DAILY PRN PRN Reason: SEVERE CONSITIPATION Levetiracetam (Keppra) 500 mg PO BID [facility] Last Admin: 04/23/18 08:03 Dose: 500 mg Lisinopril (Prinivil) 10 mg PO DAILY [facility] Ondansetron HCl (Zofran Inj) 4 mg IV.PUSH Q6H PRN PRN Reason: NAUSEA OR VOMITING Patch Removal (Remove Old Patch) 1 each T-DERMAL Q7D [facility] Senna/Docusate Sodium (Aleah-Colace) 1 tab PO BID [facility] Last Admin: 04/23/18 08:03 Dose: 1 tab Sennosides (Senokot) 17.2 mg PO Q12H PRN PRN Reason: Moderate Constipation Sodium Chloride (Ns Flush) 2 ml IV.FLUSH BID [facility] Last Admin: 04/23/18 08:04 Dose: Not Given Sodium Chloride (Ns Flush) 2 ml IV.FLUSH PRN PRN PRN Reason: FLUSH AFTER USING IV ACCESS <Dino Rosenberg - 04/23/18 12:02> Active Medications Acetaminophen (Tylenol) 650 mg PO Q4H PRN PRN Reason: PAIN 1-5 OR TEMP > 101 Al Hydrox/Mg Hydrox/Simethicone (Mag-Al Plus Susp Liq) 30 ml PO Q6H PRN PRN Reason: DYSPEPSIA Al Hydroxide/Mg Hydroxide (Milk Of Magnesia Liq) 30 ml PO Q24H PRN PRN Reason: CONSTIPATION Lorazepam (Ativan Inj) 0.5 mg IM Q12H PRN PRN Reason: MODERATE TO SEVERE ANXIETY Lorazepam (Ativan) 0.5 mg PO Q12H PRN PRN Reason: MODERATE TO SEVERE ANXIETY <Dino Dawson - 04/23/18 01:18> Exam Vital signs: Vital Signs 04/22/18 23:03 04/23/18 03:36 04/23/18 06:00 Temperature 97.3 F L 97.3 F L Pulse Rate 65 69 68 Respiratory Rate 16 16 14 Blood Pressure 156/70 H 125/60 169/77 H Pulse Oximetry 94 L 94 L 93 L 04/23/18 10:31 Temperature 98 F Pulse Rate 67 Respiratory Rate 17 Blood Pressure 153/70 H Pulse Oximetry 94 L Intake & Output 04/22/18 04/23/18 04/23/18 18:59 06:59 18:59 Intake Total 1000 / 1000 Balance 1000 / 1000 Weight 55.6 kg Intake: IV 1000 / 1000 NS Inj 1,000 ML @ 100 mls/hr IV 1000 / 1000 .CONT .Q10H [facility] Rx#:[id number] Other: Date of Last Bowel Movement 04/20/18 Weight On Admission 55.6 kg <Dino Rosenberg - 04/23/18 12:02> Vital Signs 04/22/18 23:03 Temperature 97.3 F L Pulse Rate 65 Respiratory Rate 16 Blood Pressure 156/70 H Pulse Oximetry 94 L Intake & Output 04/22/18 04/22/18 04/23/18 06:59 18:59 06:59 Weight 55.6 kg Other: Date of Last Bowel Movement 04/20/18 Weight On Admission 55.6 kg <Dino Dawson - 04/23/18 01:18> Narrative: GENERAL: This is a well-nourished, well-developed patient, catatonic but in no apparent distress. SKIN: No rashes, ecchymoses or lesions. Cool and dry. HEAD: Atraumatic. Normocephalic. NECK: Trachea midline. No JVD or lymphadenopathy. Supple, nontender, no meningeal signs. CARDIOVASCULAR: Regular rate and rhythm without murmurs, gallops, or rubs. RESPIRATORY: Clear to auscultation. Breath sounds equal bilaterally. No wheezes , rales, or rhonchi. GASTROINTESTINAL: Abdomen soft, non-tender, nondistended. No guarding. MUSCULOSKELETAL: Right sided AKA. Left lower extremity without clubbing, cyanosis, or edema. No joint tenderness, effusion, or edema noted. No calf tenderness. NEUROLOGICAL: Awake and alert. Cranial nerves II through XII grossly intact. Motor and sensory grossly within normal limits. <Dino Dawson - 04/23/18 01:18> Results - Labs Result diagrams: 04/23/18 07:01 <Dino Rosenberg - 04/23/18 12:02> Abnormal lab results 04/23/18 04/23/18 Range/Units 07:01 07:01 Chloride 110 H (98-107) meq/L BUN 29 H (7-18) mg/dL Estimated GFR 61 L (>89) mL/min Uric Acid 6.4 H (2.6-6.0) mg/dl Calcium 8.0 L (8.5-10.1) mg/dL Triglycerides 250 H (42-150) mg/dL HDL Cholesterol 26.4 L (40.0-60.0) mg/dL BMP 04/23/18 07:01 Sodium 145 Potassium 4.0 Chloride 110 H Carbon Dioxide 23.6 BUN 29 H Creatinine 0.92 Calcium 8.0 L <Dino Rosenberg - 04/23/18 12:02> Assessment and Plan - Assessment and Plan 68 yr old F w/ hx of right AKA due to PVD, dementia, diabetes, hypertension, non -Hodgkin's lymphoma in remission since 2008, and seizures (last seizure was in 2007) was admitted with altered mental status. Patient had negative medical work up. Attempts to control her pain and prevent polypharmacy were ineffective at changing her mental state. Psychiatry was consulted and patient was diagnosed with acute catatonia and she was to be transferred to med psych. Per nursing report, they were unable to get patient's mouth open to examine it let alone get her mouth open to take any oral medications. (1) Altered mental status: Psychiatric diagnosis of acute catatonia Plan: Management per psychiatry (2) Clavicle fracture Plan: Right displaced clavicle fracture Patient told to follow up with Dr. Wynn early next week [employer] consulted to apply figure-8 shoulder sling Pain regimen: Tylenol 650 mg TID and ibuprofen 600 mg TID PRN moderate pain, [place] 5 mg PRN breakthrough Patient will likely need IV pain medications because not cooperating with po. (3) Dementia Code(s): F03.90 - Unspecified dementia without behavioral disturbance Status: Acute Plan: Currently has dementia, may benefit from outpatient neurology consult depending on progress with psychiatry (4) Type 2 diabetes mellitus Code(s): E11.9 - Type 2 diabetes mellitus without complications Status: Acute Plan: Low-dose sliding scale insulin Hypoglycemia protocol ordered Discontinue glimeperide on DC Increase metformin to 1000 mg CASEY daily (5) Seizures Code(s): R56.9 - Unspecified convulsions Status: Acute Plan: continue levetiracetam 500mg BID Patient may need conversion to IV medication as she is not tolerating p.o. (6) HTN (hypertension) Code(s): I10 - Essential (primary) hypertension Status: Acute Plan: Patient not taking home lisinopril 10mg po daily clonidine patch 0.1mg transdermal q. 7 days (7) Hyperlipidemia Code(s): E78.5 - Hyperlipidemia, unspecified Status: Acute Plan: resume simvastatin on discharge (8) Anxiety Code(s): F41.9 - Anxiety disorder, unspecified Status: Acute Plan: Psychiatric meds as above (9) Insomnia Code(s): G47.00 - Insomnia, unspecified Status: Acute Plan: continue Seroquel 50mg PO HS if tolerating po (10) Nutrition, metabolism, and development symptoms Plan: Fluids: patient not taking po. Normal saline IV maintenance fluids ordered at 100 mL/h Diet: Diabetic diet Electrolytes: Monitor and replace as needed Vitals every 4, monitor I's and O's DVT prophylaxis: Lovenox 40 mg subcu daily <Dino Dawson - 04/23/18 01:18> - Attending Attestation The exam, history, and the medical decision-making described in the above note were completed with the assistance of the resident physician. I reviewed and agree with the findings presented. I attest that I had a [id number] encounter with the patient on the same day, and personally performed and documented my assessment and findings in the medical record. I evaluated the patient this morning with Dr. Torres. She continues to answer yes or no questions if pressed, otherwise she is not very attentive to us. She is somewhat sleepy, but easy to arouse. She does not report pain this morning. Holding the right arm in a way suggesting that her right clavicle fracture may be painful. Discussed case with psychiatrist who believes her current mental status may be more related to her significant medical problems. She is also on Seroquel and Keppra. Last seizure in 2007, unlikely that this is involving seizure activity. If catatonia is present, could be secondary to mental illness , medication side effect, or medical condition. She did have recent loss of her which is a major stressor. She also has reported history of dementia, and this could be progression of her dementia. She had minimal improvement with Ativan administration, perhaps counting against catatonia. Will continue to follow and manage medically while she is on the med-psych floor. Appreciate assistance of psychiatric services. <Dino Rosenberg - 04/23/18 12:02>
[2018-04-23] MEDS: Sod Chloride 0.9% Inj 1,000 ML IV.CONT SCH ×3 (01:38→21:24)
[2018-04-23] MEDS: Acetaminophen 325 MG Tablet PO SCH ×6 (01:46→20:18)
[2018-04-23] MEDS: Senna/Docusate Sodium 8.6/50 MG Tablet PO SCH ×2 (08:03→20:19)
[2018-04-23] MEDS: Fenofibrate 145 MG Tablet PO SCH (08:03)
[2018-04-23] MEDS: QUEtiapine 25 MG Tablet PO SCH ×2 (08:03→10:10)
[2018-04-23] MEDS: Gabapentin 300 MG Capsule PO SCH ×2 (08:03→20:19)
[2018-04-23] MEDS: levETIRAcetam 500 MG Tablet PO SCH ×2 (08:03→20:19)
[2018-04-23] MEDS: Enoxaparin Inj 40 MG/0.4 ML Syringe SQ SCH (08:04)
[2018-04-23] MEDS: Insulin NovoLOG Aspart Correctional Sugar Inj SQ SCH ×4 (08:04→21:22)
[2018-04-23 08:39] LABS: Carbon Dioxide 23.6 meq/L (21.0-32.0); Chol/HDL Ratio 5.07 Ratio; HDL Cholesterol 26.4 mg/dL (40.0-60.0)
[2018-04-23] MEDS ORDERED: Lisinopril 10 MG Tablet PO SCH (09:00)
--- NOTE | 2018-04-23 10:17 | P.PNADD ---
Addendum to Inpatient Note Reason for Addendum: Additional Documentation Additional information: 68 yo female with dementia, anxiety, HTN, R clavicle Fx on 04/18 admitted for altered mental status, now diagnosed with catatonia by psychiatry. Patient seen and examined 04/23 AM. Today her mental status is the same as previously with poor concentration, poor ability to follow directions, decreased speech, decreased muscle tone. RN reports she was able to take her oral meds this morning but required a lot of encouragement. Exam Vitals reviewed as noted in chart, her BP is improving from yesterday Head: NC/AT Neuro: Somnolent, awakens to touch, unable to assess orientation. Does not move extremities on command. CV: good radial pulses bilaterally, heart NRRR, normal S1/S2, no MRG Lungs: CTAB with no crackles or wheezes A/P Catatonia Unclear whether this is primary psychiatric or medically related, however medical work-up at recent hospital admission has been negative. So far does not seem to have improved much with Ativan. No dysautonomia except for the elevated BP. -Check CBC, CK to look for signs of NMS (though unlikely) -Continue Ativan trial, other meds per psychiatry recommendation Hypertension BP now stabilized, occasionally slightly high Continue Catapres patch Now that taking PO better can resume her home lisinopril DM BG at hospital goal now Check sugar AC/HS Continue metformin 1000 mg daily unless receiving IV contrast or some other contraindication noted sdw Dr. Rosenberg
--- NOTE | 2018-04-23 10:51 | P.HPPSY ---
Provisional Diagnosis Admission Date: April 22, 2018 22:30 [place] I.: Delirium due to underlying medical condition, catatonia Competence Certification of Person's Competence To Provide Express and Informed Consent I have personally examined Columba Pedroza, a person being served at [facility] on, April 23, 2018 1049. Express and informed consent means consent voluntarily given in writing, by a competent person, after sufficient explanation and disclosure of the subject matter involved to enable the person to make a knowing and willful decision without any element of force, fraud, deceit, duress, or other form of constraint or coercion. This person is 18 years of age or older, is not now known to be incompetent to consent to treatment with a guardian advocate, and does not have a health care surrogate or proxy currently making medical treatment decisions. I have found this person to be one of the following: [] Competent to provide express and informed consent, as defined above, for voluntary admission to this facility and is competent to provide express and informed consent for treatment. He/she has the consistent capacity to make well reasoned, willful, and knowing decisions concerning his or her medical or mental health treatment. The person fully and consistently understands the purpose of the admission for examination/placement and is fully capable of personally exercising all rights assured under [place] [x] Incompetent to provide express and informed consent to voluntary admission, and this is incompetent to provide express and informed consent to treatment. The person must be transferred to involuntary status and a petition for a guardian advocate filed with the Circuit Court. [] Refusing to provide express and informed consent to voluntary admission but is competent to provide express and informed consent for treatment. The person must be discharged or transferred to involuntary status. Form shall be completed within 24 hours of a person's arrival at the receiving facility and filed in the clinical record of each person: 1. Admitted on a voluntary basis 2. Permitted to provide express and informed consent to his/her own treatment 3. Allowed to transfer from involuntary to voluntary status 4. Prior to permitting a person to consent to his or her own treatment after having been previously found incompetent to consent to treatment. History of Present Illness Capacity: Lacks capacity History of Present Illness: Late entry, the patient was seen and evaluated on April 22 2018 04/21/2018 This is a request for a psychiatric consult. Documentation was reviewed, case was discussed with nursing and patient was evaluated. Patient is a 68-year-old female with a history of dementia per chart. We are consulted today to evaluate her change in mental status and make any medication recommendations. Patient was admitted to the hospital at the request of her daughter given she has had recent change in behavior. Patient has been acting bizarre sleeping in the hallways in her wheelchair multiple times throughout the night. Staff has noticed patient being labile, crying and internally stimulated. For this interview patient is minimally interactive. She is alert and oriented x1. She was previously giving staff yesterday no answers but from my interview she is mute for most of the questions. A phone call was placed to her daughter and there was no answer. 04/22/2018 The patient is a 68 year-old woman, domiciled in [facility] with daughter, supported by SS, with PPHx of depression, anxiety, 1 hospitalization due to post part depression, no SAs, she is Lexapro 20 mg and Seroquel 50 me hs prescribed by PCP, PMHx of lymphoma, DM, who was to ER due to fall and AMS. She was seen by Dr. Rojas on consult and he recommended admission. on reevaluation today in find a patient who is stuporous, flat affect, quite stiff, oppositional, with a prominent decreased speech production almost mute, with marked waxy flexibility. She has not been eating and as per daughter for the last 4 days "basically being another person".. Past psych: Unknown Past medical: See chart Past Famhx: Unknown Past Social: Unknown otherwise patient has a daughter - Inpatient Certification I certify that the inpatient services were ordered in accordance with Medicare regulations governing the order. This includes certification that hospital inpatient services are reasonable and necessary and in the case of services not specified as inpatient-only under 42 CFR 419.22(n), that they are appropriately provided as inpatient services in accordance to with the 2-midnight benchmark under 43 CFR 412.3(e) I certify that inpatient psychiatric hospital services are medically necessary. Evaluation and treatment and/or diagnostic testing are expected to improve the patient's condition. The patient needs on a daily basis, active treatment furnished directly by or requiring the supervision of inpatient psychiatric facility personnel. Estimated Total Length of Stay (Days): 2 Plans for Post Hospital Care: Not yet determined PMF - History History Provided By: Patient, Family Member - Medical History Medical History: Medical History (Last Reviewed 04/23/18 @ 07:52 by Dino Myrick) Anxiety Dementia Diabetes Gout H/O fracture of wrist HTN (hypertension) High cholesterol History of stroke Non-Hodgkin lymphoma - Surgical History Surgical History: Surgical History (Last Reviewed 04/23/18 @ 07:52 by Dino Myrick) Above knee amputation of right lower extremity - Family History Family History: Family History (Last Updated 04/19/18 @ 19:29 by Clare Wilson MD, R2) Father Heart disease Brother Leukemia - Tobacco History Second Hand Smoke Exposure: Yes Tobacco Use In Past 30 Days: Yes Smoking Status: Current every day smoker Tobacco Type: Cigarettes - Alcohol History How Often Do You Have a Drink Containing Alcohol: Never - Substance Use History Substance History: Unable to Obtain - Immunization History Tetanus Immunization: Unable to Assess Hx Influenza Vaccine This Season: Unable to Assess Medications and Allergies Active Medications: Active Medications Acetaminophen (Tylenol) 650 mg PO Q4H PRN PRN Reason: PAIN 1-5 OR TEMP > 101 Acetaminophen (Tylenol) 650 mg PO Q4H [facility] Last Admin: 04/23/18 08:04 Dose: 650 mg Hydrocodone Bitart/Acetaminophen (Carmel 5/325) 1 tab PO Q6H PRN PRN Reason: BREAKTHROUGH PAIN Al Hydrox/Mg Hydrox/Simethicone (Mag-Al Plus Susp Liq) 30 ml PO Q6H PRN PRN Reason: DYSPEPSIA Al Hydroxide/Mg Hydroxide (Milk Of Magnesia Liq) 30 ml PO Q24H PRN PRN Reason: CONSTIPATION Al Hydroxide/Mg Hydroxide (Milk Of Magnesia Liq) 30 ml PO Q12H PRN PRN Reason: Mild Constipation Atorvastatin Calcium (Lipitor) 40 mg PO HS YUKO Bisacodyl (Dulcolax Supp) 10 mg RECTAL DAILY PRN PRN Reason: SEVERE CONSITIPATION Clonidine HCl (Catapress-Tts 0.1 Mg Patch.7d) 1 patch T-DERMAL Q7D [facility] Last Admin: 04/23/18 01:46 Dose: 1 patch Dextrose (D50w Vial) 50 ml IV.PUSH UNSCH PRN PRN Reason: PER HYPOGLYCEMIA PROTOCOL Enoxaparin Sodium (Lovenox Inj) 40 mg SQ Q24H [facility] Last Admin: 04/23/18 08:04 Dose: 40 mg Escitalopram Oxalate (Lexapro) 20 mg PO DAILY [facility] Last Admin: 04/23/18 10:10 Dose: Not Given Fenofibrate (Tricor) 145 mg PO DAILY [facility] Last Admin: 04/23/18 08:03 Dose: 145 mg Gabapentin (Neurontin) 600 mg PO BID [facility] Last Admin: 04/23/18 08:03 Dose: 600 mg Glucagon (Glucagon Inj) 1 mg OTHER PRN PRN PRN Reason: for Hypoglycemia Protocol Sodium Chloride (Ns Inj) 1,000 mls @ 100 mls/hr IV.CONT .Q10H [facility] Last Admin: 04/23/18 01:38 Dose: 100 mls/hr Ibuprofen (Motrin) 600 mg PO Q8H PRN PRN Reason: PAIN 1-10 AND/OR FEVER >101F Insulin Aspart (Novolog Insulin Correctional Sugar Inj) 0 unit SQ ACHS [facility]; Protocol Last Admin: 04/23/18 08:04 Dose: Not Given Lactulose (Lactulose Liq) 30 ml PO DAILY PRN PRN Reason: SEVERE CONSITIPATION Levetiracetam (Keppra) 500 mg PO BID [facility] Last Admin: 04/23/18 08:03 Dose: 500 mg Lisinopril (Prinivil) 10 mg PO DAILY [facility] Lorazepam (Ativan Inj) 2 mg IV.PUSH STAT STA Stop: 04/23/18 10:43 Ondansetron HCl (Zofran Inj) 4 mg IV.PUSH Q6H PRN PRN Reason: NAUSEA OR VOMITING Patch Removal (Remove Old Patch) 1 each T-DERMAL Q7D [facility] Senna/Docusate Sodium (Aleah-Colace) 1 tab PO BID [facility] Last Admin: 04/23/18 08:03 Dose: 1 tab Sennosides (Senokot) 17.2 mg PO Q12H PRN PRN Reason: Moderate Constipation Sodium Chloride (Ns Flush) 2 ml IV.FLUSH BID [facility] Last Admin: 04/23/18 08:04 Dose: Not Given Sodium Chloride (Ns Flush) 2 ml IV.FLUSH PRN PRN PRN Reason: FLUSH AFTER USING IV ACCESS Allergies Allergy/AdvReac Type Severity Reaction Status Date / Time iodine Allergy Swelling Verified 04/19/18 15:50 Home Medications Medication Instructions Recorded Confirmed Type glimepiride 2 mg PO QAM 04/18/18 04/19/18 History lisinopril 10 mg PO DAILY 04/18/18 04/19/18 History lorazepam 0.5 mg PO DAILY 04/18/18 04/19/18 History metformin 500 mg PO DAILY 04/18/18 04/19/18 History phenobarbital 15 mg PO DAILY PRN 04/18/18 04/18/18 History simvastatin 80 mg PO QPM 04/18/18 04/19/18 History tramadol 150 mg PO PRN 04/18/18 04/19/18 History escitalopram oxalate 04/19/18 04/19/18 History gabapentin 04/19/18 04/19/18 History levetiracetam 04/19/18 History quetiapine 04/19/18 04/19/18 History Results - Labs CBC & Chem 7: 04/23/18 07:01 Labs: Laboratory Results - last 24 hr 04/22/18 04/23/18 04/23/18 23:44 06:14 07:01 Sodium 145 Potassium 4.0 Chloride 110 H Carbon Dioxide 23.6 Anion Gap 11 BUN 29 H Creatinine 0.92 Estimated GFR 61 L POC Glucose 94 99 Random Glucose 85 Uric Acid Calcium 8.0 L Triglycerides 250 H Cholesterol 134 LDL Cholesterol, Calc 58 HDL Cholesterol 26.4 L Cholesterol/HDL Ratio 5.07 04/23/18 07:01 Sodium Potassium Chloride Carbon Dioxide Anion Gap BUN Creatinine Estimated GFR POC Glucose Random Glucose Uric Acid 6.4 H Calcium Triglycerides Cholesterol LDL Cholesterol, Calc HDL Cholesterol Cholesterol/HDL Ratio Exam Vital signs: Vital Signs 04/22/18 23:03 04/23/18 03:36 04/23/18 06:00 Temperature 97.3 F L 97.3 F L Pulse Rate 65 69 68 Respiratory Rate 16 16 14 Blood Pressure 156/70 H 125/60 169/77 H Pulse Oximetry 94 L 94 L 93 L 04/23/18 10:31 Temperature 98 F Pulse Rate 67 Respiratory Rate 17 Blood Pressure 153/70 H Pulse Oximetry 94 L Intake & Output 04/22/18 04/23/18 04/23/18 18:59 06:59 18:59 Weight 55.6 kg Other: Date of Last Bowel Movement 04/20/18 Weight On Admission 55.6 kg Mental Status Examination Appearance: Appropriate Orientation: Person Speech: Slow Fund of Knowledge: Poor Attention and Concentration: Inadequate Memory: Impaired Mood: Sad Affect: Flat Thought Content: Thought blocking Hallucination Type: None Delusion Type: None Suicidal Ideation: No Suicidal Plan: No Suicidal Intention: No Homicidal Ideation: No Homicidal Plan: No Homicidal Intention: No Insight: Fair Judgment: Impulsive Assessment and Plan - Assessment (1) Delirium due to another medical condition Code(s): F05 - Delirium due to known physiological condition Status: Acute (2) Catatonia Code(s): F06.1 - Catatonic disorder due to known physiological condition Status: Acute - Plan Plan: Patient seems to be acutely catatonia: flat affect, mutism, waxy flexibility, autonomic instability. Continue Seroquel and Lexapro. Will do Ativan challenge with 2 mg IV now. If patient responds, continue Ativan 2 mg q/6ho. to be admitted in psychiatry. She is now basurto acted and committed to be admitted in psychiatry for stabilization and safety. Medical team and daughter agree with the plan. Transferred to the Med[facility] unit. Justification for Continued Inpatient Stay: Continue admission.
--- NOTE | 2018-04-23 10:52 | P.PNPSY ---
Subjective Chief Complaint: Catatoniadepressed Remarks: April 23, 2018 Patient is a 68-year-old female with a past history of catatonic episodes with depression. A month ago the patient's and this seems to have set in motion acute catatonia that resulted in her hospitalization first on the medical floor where possible medical etiology was explored. Improved with Ativan. She has been on Seroquel 50 mg and Lexapro 20 mg a day. She is not given the Lexapro on the medical floor. According to social human services assistants interview with the daughter "Mandy" the patient's previous episodes similar and did require hospitalization. I called the daughter but was only able to reach her voicemail. Request for consent to treat with Lexapro has been made and await the daughter's consent. Assessment of the patient at this time is that she lacks capacity for consent. I saw the patient twice once earlier in the morning not fully alert. There was little or no response to patient's at that time. There remains little in the way of response to beyond tears when I asked her if she had suffered a recent loss. (Patient's a month ago) Conference with the family medicine doctors treating the patient as well as review of the record and discussion with social human services assistants and with the staff nurse was helpful. With much encouragement the patient will take oral medications. Patient has a long list of medical conditions complicating the psychiatric condition, but none directly influencing her catatonia. Mental Status Examination Appearance: Appropriate Consciousness: Obtunded Orientation: Person, Place Motor Activity: Other (In bed with IV gait not tested motor activity slowed) Speech: Other (Mute) Language: Other (Mute) Attention and Concentration: Other (With her on) Memory: Unremarkable Mood: Other (Catatonic) Affect: Blunt Thought Process & Associations: Other (Untestable at this time thought to be intact) Thought Content: Other (Consumed with grief) Delusion Type: None Suicidal Ideation: No Suicidal Plan: No Suicidal Intention: No Homicidal Ideation: No Homicidal Plan: No Homicidal Intention: No Insight: Fair Judgment: Poor Assessment and Plan - Plan Plan: Estimated LOS: [] days Patient will be restarted on her antidepressant medication. All sedating medications such as her Seroquel and Ativan will be discontinued for now. Family medicine will follow for multiple complex medical issues. Patient may require outpatient follow-up by a neurologist, but her last episode of a convulsion 2008. Patient continues taking Keppra. Justification for Continued Inpatient Stay: Patient is acutely catatonic and requires close medical attention for multiple medical conditions. She is currently decompensated and could not be managed in a less restrictive environment.
[2018-04-23 22:31] LABS: Hemoglobin A1c 6.1 % (4.3-6.0)
[2018-04-24] MEDS: Acetaminophen 325 MG Tablet PO SCH ×3 (01:01→09:22)
[2018-04-24] MEDS: Sod Chloride 0.9% Inj 1,000 ML IV.CONT SCH ×2 (06:26→17:39)
[2018-04-24 07:54] LABS: Baso # (Auto) 0.1 th/mm3 (0.0-0.2); Baso % (Auto) 0.8 % (0.0-2.0); Eos # (Auto) 0.2 th/mm3 (0.0-0.4); Eos % (Auto) 2.5 % (0.0-4.0); Hematocrit 42.4 % (35.0-46.0); Hemoglobin 14.7 gm/dL (11.6-15.3); Lymph # (Auto) 2.6 th/mm3 (1.0-4.8); Lymph % (Auto) 27.7 % (9.0-44.0); Mean Corpuscular HGB Conc 34.7 % (32.0-36.0); Mean Corpuscular Hemoglobin 32.5 pg (27.0-34.0); Mean Corpuscular Volume 93.7 fL (80.0-100.0); Mean Platelet Volume 8.3 fL (7.0-11.0); Mono # (Auto) 0.7 th/mm3 (0.0-0.9); Mono % (Auto) 7.8 % (0.0-8.0); Neut # (Auto) 5.7 th/mm3 (1.8-7.7); Neut % (Auto) 61.2 % (16.0-70.0); Platelet Count 204 th/mm3 (150-450); Red Blood Count 4.52 mil/mm3 (4.00-5.30); Red Cell Distribution Width 14.1 % (11.6-17.2); White Blood Count 9.3 th/mm3 (4.0-11.0)
[2018-04-24] MEDS: Insulin NovoLOG Aspart Correctional Sugar Inj SQ SCH ×3 (08:59→20:05)
[2018-04-24] MEDS: levETIRAcetam 500 MG Tablet PO SCH ×3 (09:22→20:18)
[2018-04-24] MEDS: Gabapentin 300 MG Capsule PO SCH ×3 (09:22→20:19)
[2018-04-24] MEDS: Lisinopril 10 MG Tablet PO SCH (09:22)
[2018-04-24] MEDS: Enoxaparin Inj 40 MG/0.4 ML Syringe SQ SCH (09:22)
[2018-04-24] MEDS: Senna/Docusate Sodium 8.6/50 MG Tablet PO SCH ×3 (09:23→20:19)
[2018-04-24] MEDS: Fenofibrate 145 MG Tablet PO SCH (09:23)
--- NOTE | 2018-04-24 11:49 | P.PNFP ---
Subjective Interval history: 68 yo female with dementia, depression/anxiety, clavicle Fx on 04/18, HTN, DM now admitted to med/psych for acute catatonia. Medicine service consulted for management of HTN/DM and continuity of care. Today patient reports feeling much better and clearer mentally, doesn't remember much from the last several days. Denies pain, chest discomfort, or shortness of breath. No numbness/weakness. <Jordan Schrader S - 04/24/18 11:49> Results - Labs Result diagrams: 04/24/18 07:36 04/23/18 07:01 <Dino Rosenberg - 04/24/18 16:23> Abnormal lab results 04/23/18 04/24/18 Range/Units 07:01 06:35 POC Glucose 120 H (68-110) mg/dl Hemoglobin A1c 6.1 H (4.3-6.0) % Short CBC 04/24/18 Range/Units 07:36 WBC 9.3 (4.0-11.0) th/mm3 Hgb 14.7 (11.6-15.3) gm/dL Hct 42.4 (35.0-46.0) % Plt Count 204 (150-450) th/mm3 Cardiac Enzymes 04/24/18 Range/Units 07:36 Total Creatine Kinase 75 (26-192) U/L <Dino Rosenberg - 04/24/18 16:23> Abnormal lab results 04/23/18 04/24/18 Range/Units 07:01 06:35 POC Glucose 120 H (68-110) mg/dl Hemoglobin A1c 6.1 H (4.3-6.0) % Short CBC 04/24/18 Range/Units 07:36 WBC 9.3 (4.0-11.0) th/mm3 Hgb 14.7 (11.6-15.3) gm/dL Hct 42.4 (35.0-46.0) % Plt Count 204 (150-450) th/mm3 Cardiac Enzymes 04/24/18 Range/Units 07:36 Total Creatine Kinase 75 (26-192) U/L <Jordan Schrader S - 04/24/18 11:49> Physical Exam Vital signs: Vital Signs 04/23/18 17:48 04/24/18 06:00 Temperature 98.5 F 98.6 F Pulse Rate 66 62 Respiratory Rate 18 18 Blood Pressure 166/77 H 186/77 H Pulse Oximetry 93 L 91 L Intake & Output 04/23/18 04/24/18 04/24/18 18:59 06:59 18:59 Intake Total 1180 / 1180 1999 Balance 1180 / 1180 1999 Intake: IV 1000 / 1000 1999 NS Inj 1,000 ML @ 100 mls/hr IV 1000 / 1000 1999 .CONT .Q10H [facility] Rx#:[id number] Oral 180 / 180 0 / 0 Oral Supplement 0 / 0 Other: # Voids 3 3 Date of Last Bowel Movement 04/20/18 04/23/18 # Bowel Movements 1 1 <Dino Rosenberg L - 04/24/18 16:23> Vital Signs 04/23/18 14:00 04/23/18 17:48 04/24/18 06:00 Temperature 98.2 F 98.5 F 98.6 F Pulse Rate 66 62 Respiratory Rate 20 18 18 Blood Pressure 166/78 H 166/77 H 186/77 H Pulse Oximetry 93 L 93 L 91 L Intake & Output 04/23/18 04/24/18 04/24/18 18:59 06:59 18:59 Intake Total 1180 / 1180 1999 Balance 1180 / 1180 1999 Intake: IV 1000 / 1000 1999 NS Inj 1,000 ML @ 100 mls/hr IV 1000 / 1000 1999 .CONT .Q10H [facility] Rx#:[id number] Oral 180 / 180 0 / 0 Oral Supplement 0 / 0 Other: # Voids 3 3 Date of Last Bowel Movement 04/20/18 # Bowel Movements 1 1 <Torres R3,Jordan S - 04/24/18 11:49> - Constitutional no acute distress, average body habitus, cooperative <Torres R3,Jordan S - 11:49> - Routine HEENT Exam Head: Present: normocephalic, atraumatic <Torres R3,Jordan S - 04/24/18 11:49> ENT: Present: mucous membranes moist <Torres R3,Jordan S - 04/24/18 11:49> - Routine Respiratory Exam Present: CTA bilaterally. Absent: accessory muscle use, wheezes, crackles < Torres R3,Jordan S - 04/24/18 11:49> - Routine Cardiovascular Exam Present: RRR, S1, S2. Absent: murmur <Jordan Schrader - 04/24/18 11:49> - Routine Abdominal Exam Present: soft <Jordan Schrader - 04/24/18 11:49> - Routine Extremities Exam Comments: RUE externally rotated at shoulder and adducted. Neurovascularly intact. Normal movement of extremities observed. <Jordan Schrader - 04/24/18 11:49> Assessment and Plan - Assessment and Plan Catatonia Unclear whether this is primary psychiatric or medically related, however medical work-up at recent hospital admission has been negative. So far does seems to be improving with Ativan. No dysautonomia except for the elevated BP. CBC and CK within normal limits; no signs of NMS -Continue Lexapro and Seroquel -follow psychiatry recommendation on continuation of Ativan. By chart review doesn't seem to have received any yesterday. Clavicle Fracture, right Stable, neurovascularly intact Will consult orthotech for sling placement for comfort Pain control with Tylenol/Motrin scheduled, oral opiate PRN for breakthrough Hypertension BP now stabilized, occasionally moderately elevated but out of severe range Continue Catapres patch Continue home lisinopril Diabetes mellitus BG at hospital goal now Check sugar AC/HS Continue metformin 1000 mg daily unless receiving IV contrast or some other contraindication noted Medicine service to follow, thank you for allowing us to continue being part of Mrs. Pedroza's care <Jordan Schrader - 04/24/18 11:49> - Attending Attestation The exam, history, and the medical decision-making described in the above note were completed with the assistance of the resident physician. I reviewed and agree with the findings presented. I attest that I had a [id number] encounter with the patient on the same day, and personally performed and documented my assessment and findings in the medical record. I evaluated patient independently this afternoon. She is lying in bed, in no distress. I asked if she is feeling down, depressed, anxious, suicidal, all of which she denies. However, she becomes teary eyed when asked these questions. She is slow to respond and sometimes I have to repeat questions before she responds, but she will eventually answer my questions. Most of her answers are very short yes/no answers. She is making eye contact with me and says she remembers me. Also she seems more alert and responsive compared to days prior. Additional history provided that she's had episodes like this in the past. At this point, it is appearing that her symptoms are possibly attributable to an acutely stressful situation, i.e. her passing away recently, and the stress, sadness, and grief that will obviously cause. Today she does not have the waxy postures she had previously, and she is moving her limbs freely. No fevers, no leukocytosis, CK level is normal, which are reassuring. Lexapro has been continued. <Dino Rosenberg - 04/24/18 16:23>
[2018-04-24] MEDS: Acetaminophen 500 MG Tablet PO SCH ×4 (13:01→20:19)
--- NOTE | 2018-04-24 14:22 | P.PNPSY ---
Subjective Chief Complaint: Catatoniadepressed Remarks: April 24, 2018 Subjective: Patient shows no signs of acute catatonia observed yesterday. She is not able to talk about her grief over the loss of her , but she is able to speak. Patient was discussed with the nursing staff and the record was reviewed. The patient may require an additional day in the hospital but it is likely that if she continues to improve this will not be necessary. Still is unable to talk about her 's , but could benefit from grief counseling and possibly a group therapy. Once she is discharged she can resume her Lexapro. It is noted patient has not required hospitalization on previous similar episodes according to the daughter. Mental Status Examination Appearance: Appropriate Consciousness: Obtunded Orientation: Person, Place, Date/Time, Situation Motor Activity: Other (Today patient is in bed when seen with the nurse but should be able to get OOB and walk) Speech: Slow Language: Adequate Fund of Knowledge: Adequate Attention and Concentration: Inadequate (Very limited) Memory: Impaired (Patient remains to depressed for adequate testing) Mood: Sad Affect: Sad (There was just a hint smile today) Thought Process & Associations: Other (Untestable at this time thought to be intact) Thought Content: Thought blocking Hallucination Type: None Delusion Type: None Suicidal Ideation: No Suicidal Plan: No Suicidal Intention: No Homicidal Ideation: No Homicidal Plan: No Homicidal Intention: No Insight: Fair Judgment: Impulsive Assessment and Plan - Assessment (1) Delirium due to another medical condition Code(s): F05 - Delirium due to known physiological condition Status: Acute (2) Catatonia Code(s): F06.1 - Catatonic disorder due to known physiological condition Status: Acute - Plan Plan: Patient will be reviewed again tomorrow and if there is adequate improvement she will be discharged. Patient has done okay in the past without hospitalization and so that encourages the possibility that she can be discharged with follow-up if she will agree to outpatient psychiatric and therapy treatment Justification for Continued Inpatient Stay: Uncertain about the patient's readiness to deal with all the reminders once she is discharged. She does not yet appear stable enough for facing the inevitable reminders of her once she goes home
[2018-04-25] MEDS: Sod Chloride 0.9% Inj 1,000 ML IV.CONT SCH ×3 (02:37→23:24)
--- NOTE | 2018-04-25 10:12 | P.PNFP ---
Subjective Interval history: 68 yo female with dementia, depression/anxiety, clavicle Fx on 04/18, HTN, DM now admitted to med/psych for acute catatonia. Medicine service consulted for management of HTN/DM and continuity of care. Overnight RN reports seizure activity requiring HaliCAT. IV Ativan was given which patient seemed to respond to. This morning her mental status is about the same as it was 2 days ago i.e. with occasional one-word answers to questions, poor concentration. She was able to communicate that she has no pain or SOB. <Jordan Schraedr S - 04/25/18 10:12> Results - Labs Result diagrams: 04/24/18 07:36 04/23/18 07:01 <Dino Rosenberg L - 04/25/18 15:41> Abnormal lab results 04/25/18 04/25/18 04/25/18 Range/Units 01:48 06:08 08:22 POC Glucose 220 H 190 H 163 H (68-110) mg/dl <Dino Rosenberg L - 04/25/18 15:41> Abnormal lab results 04/25/18 04/25/18 04/25/18 Range/Units 01:48 06:08 08:22 POC Glucose 220 H 190 H 163 H (68-110) mg/dl <Jordan Schrader S - 04/25/18 10:12> Physical Exam Vital signs: Vital Signs 04/24/18 18:00 04/25/18 00:00 04/25/18 01:30 Temperature 98.1 F 98 F Pulse Rate 76 112 H Respiratory Rate 17 20 Blood Pressure 149/86 H 202/100 H Pulse Oximetry 93 L 93 L 93 L 04/25/18 01:35 04/25/18 02:00 04/25/18 05:41 Temperature 98 F 98 F Pulse Rate 101 H 84 Respiratory Rate 18 24 Blood Pressure 177/82 H 200/97 H Pulse Oximetry 94 L 94 L 96 Intake & Output 04/24/18 04/25/18 04/25/18 18:59 06:59 18:59 Intake Total 1120 / 1120 1000 / 1000 Balance 1120 / 1120 1000 / 1000 Weight 56.4 kg Intake: IV 1000 / 1000 1000 / 1000 NS Inj 1,000 ML @ 100 mls/hr IV 1000 / 1000 1000 / 1000 .CONT .Q10H [facility] Rx#:[id number] Oral 120 / 120 0 / 0 Other: # Voids 1 # Urine Diapers 4 Date of Last Bowel Movement 04/23/18 <Dino Rosenberg L - 04/25/18 15:41> Vital Signs 04/24/18 18:00 04/25/18 00:00 04/25/18 01:30 Temperature 98.1 F 98 F Pulse Rate 76 112 H Respiratory Rate 17 20 Blood Pressure 149/86 H 202/100 H Pulse Oximetry 93 L 93 L 93 L 04/25/18 01:35 04/25/18 02:00 04/25/18 05:41 Temperature 98 F 98 F Pulse Rate 101 H 84 Respiratory Rate 18 24 Blood Pressure 177/82 H 200/97 H Pulse Oximetry 94 L 94 L 96 Intake & Output 04/24/18 04/25/18 04/25/18 18:59 06:59 18:59 Intake Total 1120 / 1120 1000 / 1000 Balance 1120 / 1120 1000 / 1000 Weight 56.4 kg Intake: IV 1000 / 1000 1000 / 1000 NS Inj 1,000 ML @ 100 mls/hr IV 1000 / 1000 1000 / 1000 .CONT .Q10H [facility] Rx#:[id number] Oral 120 / 120 0 / 0 Other: # Voids 1 # Urine Diapers 4 Date of Last Bowel Movement 04/23/18 <Torres R3,Jordan S - 04/25/18 10:12> - Constitutional no acute distress, average body habitus <Torres R3,Jordan S - 04/25/18 10:12> - Routine HEENT Exam Head: Present: normocephalic, atraumatic <Torres R3,Jordan S - 04/25/18 10:12> ENT: Present: mucous membranes moist <Torres R3,Jordan S - 04/25/18 10:12> - Routine Respiratory Exam Present: CTA bilaterally. Absent: accessory muscle use, wheezes, crackles < Torres R3,Jordan S - 04/25/18 10:12> - Routine Cardiovascular Exam Present: RRR, S1, S2. Absent: murmur <Torres R3,Jordan S - 04/25/18 10:12> - Routine Extremities Exam Absent: cyanosis, edema <Torres R3,Jordan S - 04/25/18 10:12> - Routine Neurological Exam No tremors. Awake and alert but poor concentration. Hypertonia is present. Tongue fasciculations noted. Due to poor cooperation unable to assess strength but does move all extremities. <Jordan Schrader S - 04/25/18 10:12> - Routine Psychiatric Exam Comments: Speech slow and minimal. Poor concentration. Facial expressions normal. <Jordan Schrader S - 04/25/18 10:12> Assessment and Plan - Assessment and Plan Catatonia Unclear whether this is primary psychiatric or medically related, however medical work-up at recent hospital admission has been negative. Initially improved with Ativan however now is catatonic again (had not gotten Ativan except initial dose). No dysautonomia except for the elevated BP. CBC and CK within normal limits; no signs of NMS -Continue Lexapro and Seroquel -Per psychiatrist recommendation will continue Ativan 2 mg IV Q6H since she responded well to it initially (mental status was much better yesterday morning) ; hold for sedation or bradypnea -Manage hypertension as noted below Seizure Disorder Now with possible repeat seizure last night -Check Keppra level -Check EEG -Consult neurology for recommendation on continued Keppra if she continues to be unable to take PO for prolonged period -Treat catatonia as above Clavicle Fracture, right Stable, neurovascularly intact Will consult orthotech for sling placement for comfort Pain control with IV tylenol scheduled for now, will switch back to PO once catatonia improves Hypertension BP now spiking to 180-200 Increase Catapres patch to 0.2 mg Continue home lisinopril once able to tolerate PO Vasotec PRN Q6H for BP > 180/100 Diabetes mellitus BG at hospital goal now Check sugar AC/HS Continue metformin 1000 mg daily unless receiving IV contrast or some other contraindication noted Medicine service to follow, thank you for allowing us to continue being part of Mrs. Pedroza's care <Jordan Schrader - 04/25/18 10:12> - Attending Attestation The exam, history, and the medical decision-making described in the above note were completed with the assistance of the resident physician. I reviewed and agree with the findings presented. I attest that I had a [id number] encounter with the patient on the same day, and personally performed and documented my assessment and findings in the medical record. I evaluated the patient independently this afternoon. I spoke with the nurse at length about the patient's care. Per nurse, overnight the patient had convulsions for upwards of one hour, finally broken with 3 mg of Ativan. Today she has seemed to regress in her clinical status, presenting more like she did a couple days ago. She answers simple yes or no answers if pressed, but is not following commands for me. Difficult to perform a good neurological examination given lack of cooperation. She does not seem drowsy or un-alert. She makes eye contact when you talk to her. She is moving all her limbs spontaneously. She has reactive pupils. She has unexpressive facial expressions. She also had beads of sweat on her forehead. Checked her temperature which was normal. Also her blood glucoses have been normal. At this point, will check a Keppra level and get neurology on board. Also will order an EEG. Unclear to me if she is actually having seizures, but definitely want to rule this out as a cause of her symptomatology. Also she has not been receiving all of her Keppra given her difficulty with oral intake. Also, given report that she is choking on her food , will make her NPO right away and obtain a swallow evaluation. Psychiatry also remains on board and we appreciate their co-management. <Dino Rosenberg - 04/25/18 15:41>
[2018-04-25] MEDS: levETIRAcetam 500 MG Tablet PO SCH ×2 (10:44→20:12)
[2018-04-25] MEDS: Insulin NovoLOG Aspart Correctional Sugar Inj SQ SCH ×4 (10:44→20:11)
[2018-04-25] MEDS: Gabapentin 300 MG Capsule PO SCH ×2 (10:45→20:12)
[2018-04-25] MEDS: Enoxaparin Inj 40 MG/0.4 ML Syringe SQ SCH (10:45)
[2018-04-25] MEDS: Lisinopril 10 MG Tablet PO SCH (10:46)
[2018-04-25] MEDS: Senna/Docusate Sodium 8.6/50 MG Tablet PO SCH ×2 (10:46→20:13)
[2018-04-25] MEDS: Fenofibrate 145 MG Tablet PO SCH (10:46)
[2018-04-25] MEDS: Acetaminophen 500 MG Tablet PO SCH (10:46)
--- NOTE | 2018-04-25 12:54 | P.PNPSY ---
Subjective Chief Complaint: Catatoniadepressed Remarks: Late entry for April 25, 2018: Subjective patient's daughter Guilherme reports that the patient has been through this a number of times since the of her a year ago. In my interview with the patient the previous day the patient was unable to talk about grief but became very tearful and turned her head away signifying she was not able to continue speaking. Today the patient was sitting up and has shown some improvement according to review of the record and discussion with the nurse. Patient was seen with the nurse and was asked about her readiness to discuss her grief. It seemed evidently patient might talk with the nurse but was not ready to talk to me about her sadness and grief at this time. Mental Status Examination Appearance: Appropriate Consciousness: Obtunded Orientation: Person, Place, Date/Time, Situation Motor Activity: Other (Today patient is in bed when seen with the nurse but should be able to get OOB and walk) Speech: Slow Language: Adequate Fund of Knowledge: Adequate Attention and Concentration: Inadequate (Very limited) Memory: Impaired (Patient remains to depressed for adequate testing) Mood: Sad Affect: Sad (There was just a hint smile today) Thought Process & Associations: Other (Untestable at this time thought to be intact) Thought Content: Thought blocking Hallucination Type: None Delusion Type: None Suicidal Ideation: No Suicidal Plan: No Suicidal Intention: No Homicidal Ideation: No Homicidal Plan: No Homicidal Intention: No Insight: Fair Judgment: Impulsive Assessment and Plan - Assessment (1) Delirium due to another medical condition Code(s): F05 - Delirium due to known physiological condition Status: Acute (2) Catatonia Code(s): F06.1 - Catatonic disorder due to known physiological condition Status: Acute - Plan Plan: Patient will be reviewed again tomorrow and if there is adequate improvement she will be discharged. Patient has done okay in the past without hospitalization and so that encourages the possibility that she can be discharged with follow-up if she will agree to outpatient psychiatric and therapy treatment April 25 late entry: Subjective patient remains unable to talk about her sadness and grief. It is not in acute distress time that the antidepressant medication is having much effect but according to the daughter the patient has gotten through these episodes at times without hospitalization. According to the daughter these episodes Ebony the present episode. The patient continues to require strong medical support. Medical record indicates that the patient had showed some improvement Ativan. This improvement apparently disappeared with the lowering of the titer of the Ativan Justification for Continued Inpatient Stay: Patient is currently severely depressed unable to feed herself, stand or respond to questions. She is certain to decompensate without the current level of treatment.
--- NOTE | 2018-04-25 13:03 | P.PNPSY ---
Subjective Chief Complaint: Catatoniadepressed Remarks: April 26, 2018 Subjective: Patient was seen with the nursing staff later with , who consulted for a Hdez act second opinion. Patient was somewhat more responsive with Dr. Delarosa but still shows an extreme poverty of verbalization and reaction to question. He was able to follow simple direction of allowing some motor testing. She continues to have difficulty with requests for volitional independent movement. Please see medicine note regarding patient's seizure last p.m. On auxiliary oxygen at present time. Mental Status Examination Appearance: Appropriate Consciousness: Obtunded Orientation: Person, Place, Date/Time, Situation Motor Activity: Other (Today patient is in bed when seen with the nurse but should be able to get OOB and walk) Speech: Slow Language: Adequate Fund of Knowledge: Adequate (To a few responses to assess) Attention and Concentration: Inadequate (Very limited) Memory: Impaired (Patient remains too depressed for adequate testing) Mood: Sad Affect: Sad (increased depression today) Thought Process & Associations: Other (Untestable at this time thought to be intact) Thought Content: Thought blocking Hallucination Type: None Delusion Type: None Suicidal Ideation: No Suicidal Plan: No Suicidal Intention: No Homicidal Ideation: No Homicidal Plan: No Homicidal Intention: No Insight: Poor Judgment: Impulsive Assessment and Plan - Assessment (1) Delirium due to another medical condition Code(s): F05 - Delirium due to known physiological condition Status: Acute (2) Catatonia Code(s): F06.1 - Catatonic disorder due to known physiological condition Status: Acute - Plan Plan: Patient will be reviewed again tomorrow and if there is adequate improvement she will be discharged. Patient has done okay in the past without hospitalization and so that encourages the possibility that she can be discharged with follow-up if she will agree to outpatient psychiatric and therapy treatment April 25 late entry: Subjective patient remains unable to talk about her sadness and grief. It is not in acute distress time that the antidepressant medication is having much effect but according to the daughter the patient has gotten through these episodes at times without hospitalization. According to the daughter these episodes Ebony the present episode. The patient continues to require strong medical support. Medical record indicates that the patient had showed some improvement Ativan. This improvement apparently disappeared with the lowering of the titer of the Ativan April 26 continue current medications. If patient's depression continues at this level ECT should be considered. Justification for Continued Inpatient Stay: Patient is at risk for decompensation in a less intensive treatment environment.
--- NOTE | 2018-04-25 13:06 | P.PNPSY ---
Subjective Chief Complaint: Catatoniadepressed Remarks: April 26, 2018 This is an addendum to the previous note which is complete but has the previous days date. Mental Status Examination Appearance: Appropriate Consciousness: Obtunded Orientation: Person, Place, Date/Time, Situation Motor Activity: Other (Today patient is in bed when seen with the nurse but should be able to get OOB and walk) Speech: Slow Language: Adequate Fund of Knowledge: Adequate (To a few responses to assess) Attention and Concentration: Inadequate (Very limited) Memory: Impaired (Patient remains too depressed for adequate testing) Mood: Sad Affect: Sad (increased depression today) Thought Process & Associations: Other (Untestable at this time thought to be intact) Thought Content: Thought blocking Hallucination Type: None Delusion Type: None Suicidal Ideation: No Suicidal Plan: No Suicidal Intention: No Homicidal Ideation: No Homicidal Plan: No Homicidal Intention: No Insight: Poor Judgment: Impulsive Assessment and Plan - Assessment (1) Delirium due to another medical condition Code(s): F05 - Delirium due to known physiological condition Status: Acute (2) Catatonia Code(s): F06.1 - Catatonic disorder due to known physiological condition Status: Acute - Plan Plan: Patient will be reviewed again tomorrow and if there is adequate improvement she will be discharged. Patient has done okay in the past without hospitalization and so that encourages the possibility that she can be discharged with follow-up if she will agree to outpatient psychiatric and therapy treatment April 25 late entry: Subjective patient remains unable to talk about her sadness and grief. It is not in acute distress time that the antidepressant medication is having much effect but according to the daughter the patient has gotten through these episodes at times without hospitalization. According to the daughter these episodes Ebony the present episode. The patient continues to require strong medical support. Medical record indicates that the patient had showed some improvement Ativan. This improvement apparently disappeared with the lowering of the titer of the Ativan April 26 continue current medications. If patient's depression continues at this level ECT should be considered. Justification for Continued Inpatient Stay: Continues to require inpatient care because of risk for decompensation
--- NOTE | 2018-04-25 14:46 | P.PNPSY ---
Subjective Chief Complaint: Catatoniadepressed Remarks: The patient was seen for the purpose of providing a second opinion to the Hdez act order. Chart reviewed to include emergency department paperwork and the attending's history and physical. Patient discussed with nursing staff; we reviewed the patient's mood, thoughts, and behaviors since arrival to the unit. Patient seen at bedside laying with her eyes closed quiet and calm. Patient responded to her name by opening her eyes. Patient responded to command by shifting her gaze towards the provider. Patient did not respond to commands of squeezing the provider's finger in either hand. Patient was asked if she was in any pain or discomfort and she replied no. Patient was asked other questions about her mood anxiety and orientation but did not answer any other questions and stared straight ahead. Review of Systems unobtainable due to mental status Mental Status Examination Appearance: Appropriate Consciousness: Alert Orientation: Person Motor Activity: Other (Patient in bed and not cooperative with efforts to demonstrate motor activity) Speech: Slow (Only answered 1 question and she answered no) Language: Other (Lack of language or speech) Fund of Knowledge: Inadequate Attention and Concentration: Inadequate (Very limited) Memory: Impaired (Patient remains too depressed for adequate testing) Mood: Other (None reported) Affect: Flat Thought Process & Associations: Other (Untestable at this time thought to be intact) Thought Content: Thought blocking Hallucination Type: None Delusion Type: None Suicidal Ideation: No Suicidal Plan: No Suicidal Intention: No Homicidal Ideation: No Homicidal Plan: No Homicidal Intention: No Insight: Poor Judgment: Poor Assessment and Plan - Assessment (1) Delirium due to another medical condition Code(s): F05 - Delirium due to known physiological condition Status: Acute (2) Catatonia Code(s): F06.1 - Catatonic disorder due to known physiological condition Status: Acute - Plan Plan: The patient meets criteria for involuntary psychiatric hospitalization and evaluation due to her disorganized thoughts and inability to advocate for herself. Justification for Continued Inpatient Stay: Patient remains an elevated risk for self-harm by self neglect and will require further inpatient stabilization and preparation of a safe discharge plan. Moving patient to a less restrictive environment at this time may result in decompensation.
--- NOTE | 2018-04-25 22:08 | MB ---
cc: Dutch Mehta MD DATE: 04/25/2018 HISTORY OF PRESENT ILLNESS: This is a 68-year-old woman, possibly history of peripheral vascular disease, right above-knee amputation, dementia, diabetes, hypertension, non-Hodgkin's lymphoma in remission since 2008, last seizure in 2007, came into the hospital because of mental status. She was asleep but easily awakened. It is unclear what her baseline is at home. Apparently, her recently, and I am unable to get a hold of the daughter, though I did leave a message at the contact number [place]. She came in here, psychiatry said daughter said she had a recent change in behavior, acting bizarre, sleeping in the hallways in her wheelchair multiple times, crying. She has been hospitalized in the past for depression. She had not been eating for several days. PAST MEDICAL HISTORY: As above. Also, anxiety, gout, wrist fracture, hypertension, hypercholesterolemia, stroke. MEDICATIONS AT HOME: Prior, she was listed as: 1. Escitalopram. 2. Gabapentin. 3. Glyburide. 4. Hydrocodone 5. Keppra. 6. Lisinopril. 7. Lorazepam. 8. Metformin. 9. Phenobarbital 15 a day p.r.n. 10. Seroquel. 11. Simvastatin. 12. Tramadol 150, which she should not be on with a history of seizures. CURRENT MEDICATIONS: Here, she is on: 1. Lipitor. 2. Lovenox. 3. Lexapro. 4. Gabapentin 600 b.i.d. She is not taking it much orally. 5. She is on Keppra 500 b.i.d. but not given. 6. She is on Ativan, which she got 3 mg apparently last night for a seizure. PHYSICAL EXAMINATION: VITAL SIGNS: Afebrile, 77, 16, 131/60 to 200/97, highest 202/100. There were no carotid bruits. HEART: Regular rate and rhythm. I did not detect a murmur. NEUROLOGIC: She reacts to threat. She awakens. She did say 2 on count of 2 fingers. The pupils are equal. She moves both of her arms with poor effort but symmetrically. She withdrew the right leg. The left toe appears to be upgoing. The right leg is the amputated leg. NECK: Supple. LABORATORY DATA: CBC is normal. Basic metabolic profile: Glucose has been high. BMP essentially normal. Hemoglobin A1c 6.1. LDL normal. IMPRESSION: It is unclear how demented she usually is. She had a grand mal last night. We will check an MRI and EEG. I did change her Keppra to IV, and hopefully, the family will call for some kind of baseline on her. Now, we will increase her Keppra to 1000 b.i.d. MD PALOMA Finley/bo , 09:26 PM , 09:33 PM
[2018-04-25] MEDS: levETIRAcetam 1000mg/100mL Inj 100 ML IV.SIG SCH (23:40)
[2018-04-26 06:53] LABS: Baso # (Auto) 0.1 th/mm3 (0.0-0.2); Baso % (Auto) 1.1 % (0.0-2.0); Eos # (Auto) 0.3 th/mm3 (0.0-0.4); Eos % (Auto) 3.8 % (0.0-4.0); Hematocrit 37.2 % (35.0-46.0); Hemoglobin 12.6 gm/dL (11.6-15.3); Lymph # (Auto) 2.7 th/mm3 (1.0-4.8); Lymph % (Auto) 35.3 % (9.0-44.0); Mean Corpuscular HGB Conc 33.9 % (32.0-36.0); Mean Corpuscular Hemoglobin 31.8 pg (27.0-34.0); Mean Corpuscular Volume 93.7 fL (80.0-100.0); Mean Platelet Volume 8.9 fL (7.0-11.0); Mono # (Auto) 0.6 th/mm3 (0.0-0.9); Mono % (Auto) 8.2 % (0.0-8.0); Neut # (Auto) 3.9 th/mm3 (1.8-7.7); Neut % (Auto) 51.6 % (16.0-70.0); Platelet Count 174 th/mm3 (150-450); Red Blood Count 3.98 mil/mm3 (4.00-5.30); Red Cell Distribution Width 14.3 % (11.6-17.2); White Blood Count 7.5 th/mm3 (4.0-11.0)
--- NOTE | 2018-04-26 07:10 | P.PNNEU ---
Subjective Active Medications: Active Medications Acetaminophen (Tylenol) 500 mg PO QID [facility] Last Admin: 04/25/18 10:46 Dose: Not Given Hydrocodone Bitart/Acetaminophen ([place] 5/325) 1 tab PO Q6H PRN PRN Reason: BREAKTHROUGH PAIN Al Hydrox/Mg Hydrox/Simethicone (Mag-Al Plus Susp Liq) 30 ml PO Q6H PRN PRN Reason: DYSPEPSIA Al Hydroxide/Mg Hydroxide (Milk Of Magnesia Liq) 30 ml PO Q24H PRN PRN Reason: CONSTIPATION Al Hydroxide/Mg Hydroxide (Milk Of Magnesia Liq) 30 ml PO Q12H PRN PRN Reason: Mild Constipation Atorvastatin Calcium (Lipitor) 40 mg PO HS [facility] Last Admin: 04/25/18 20:12 Dose: Not Given Bisacodyl (Dulcolax Supp) 10 mg RECTAL DAILY PRN PRN Reason: SEVERE CONSITIPATION Clonidine HCl (Catapress-Tts 0.2 Mg Patch.7d) 1 patch T-DERMAL Q7D [facility] Last Admin: 04/25/18 17:07 Dose: 1 patch Dextrose (D50w Vial) 50 ml IV.PUSH UNSCH PRN PRN Reason: PER HYPOGLYCEMIA PROTOCOL Enalaprilat (Vasotec Inj) 2.5 mg IV.PUSH Q6H PRN PRN Reason: SBP>200, DBP>100 Enoxaparin Sodium (Lovenox Inj) 40 mg SQ Q24H [facility] Last Admin: 04/25/18 10:45 Dose: 40 mg Escitalopram Oxalate (Lexapro) 20 mg PO DAILY [facility] Last Admin: 04/25/18 10:44 Dose: Not Given Fenofibrate (Tricor) 145 mg PO DAILY [facility] Last Admin: 04/25/18 10:46 Dose: Not Given Gabapentin (Neurontin) 600 mg PO BID [facility] Last Admin: 04/25/18 20:12 Dose: Not Given Glucagon (Glucagon Inj) 1 mg OTHER PRN PRN PRN Reason: for Hypoglycemia Protocol Sodium Chloride (Ns Inj) 1,000 mls @ 100 mls/hr IV.CONT .Q10H [facility] Last Admin: 04/25/18 23:24 Dose: 100 mls/hr Acetaminophen (Ofirmev Inj) 1,000 mg in 100 mls @ 400 mls/hr IV.SIG Q8H [facility] Stop: 04/26/18 11:14 Last Infusion: 04/26/18 05:04 Dose: Infused Levetiracetam (Keppra 1000 Mg/100 Ml Premix) 100 mls @ 400 mls/hr IV.SIG Q12H [facility] Last Infusion: 04/26/18 00:47 Dose: Infused Ibuprofen (Motrin) 600 mg PO Q8H PRN PRN Reason: PAIN 1-10 AND/OR FEVER >101F Insulin Aspart (Novolog Insulin Correctional Sugar Inj) 0 unit SQ ACHS [facility]; Protocol Last Admin: 04/25/18 20:11 Dose: Not Given Lactulose (Lactulose Liq) 30 ml PO DAILY PRN PRN Reason: SEVERE CONSITIPATION Lisinopril (Prinivil) 10 mg PO DAILY [facility] Last Admin: 04/25/18 10:46 Dose: Not Given Lorazepam (Ativan Inj) 2 mg IV.PUSH Q6H [facility] Last Admin: 04/26/18 04:46 Dose: 2 mg Ondansetron HCl (Zofran Inj) 4 mg IV.PUSH Q6H PRN PRN Reason: NAUSEA OR VOMITING Patch Removal (Remove Old Patch) 1 each T-DERMAL Q7D [facility] Patch Removal (Remove Old Patch) 1 each T-DERMAL Q7D [facility] Last Admin: 04/25/18 17:07 Dose: 1 each Senna/Docusate Sodium (Aleah-Colace) 1 tab PO BID [facility] Last Admin: 04/25/18 20:13 Dose: Not Given Sennosides (Senokot) 17.2 mg PO Q12H PRN PRN Reason: Moderate Constipation Sodium Chloride (Ns Flush) 2 ml IV.FLUSH BID [facility] Last Admin: 04/25/18 20:13 Dose: Not Given Sodium Chloride (Ns Flush) 2 ml IV.FLUSH PRN PRN PRN Reason: FLUSH AFTER USING IV ACCESS Allergies/Adverse Reactions: Allergies Allergy/AdvReac Type Severity Reaction Status Date / Time iodine Allergy Swelling Verified 04/19/18 15:50 Physical Exam Vital signs: Vital Signs 04/25/18 17:06 04/25/18 20:38 04/26/18 04:00 Temperature 98.7 F 97.7 F Pulse Rate 77 64 Respiratory Rate 16 16 16 Blood Pressure 131/60 139/66 Pulse Oximetry 94 L 93 L Intake & Output 04/25/18 04/26/18 04/26/18 18:59 06:59 18:59 Intake Total 1260 / 1260 1200 / 1200 Balance 1260 / 1260 1200 / 1200 Intake: IV 1200 / 1200 1200 / 1200 NS Inj 1,000 ML @ 100 mls/hr IV 1000 / 1000 1000 / 1000 .CONT .Q10H [facility] Rx#:[id number] Ofirmev Inj 1,000 mg In 100 ml 200 / 200 100 / 100 @ 400 mls/hr IV.SIG Q8H [facility] Rx# :[id number] Keppra 1000 mg/100 mL Premix 100 / 100 100 ML @ 400 mls/hr IV.SIG Q12H [facility] Rx#:[id number] Oral 60 / 60 0 / 0 Other: # Voids 2 1 Date of Last Bowel Movement 04/23/18 04/23/18 Narrative: more alert not following any commands or talking but looks at me and nl rxt threat Objective Laboratory Results - last 24 hr 04/25/18 04/26/18 04/26/18 08:22 06:02 06:17 WBC 7.5 RBC 3.98 L Hgb 12.6 D Hct 37.2 MCV 93.7 MCH 31.8 MCHC 33.9 RDW 14.3 Plt Count 174 MPV 8.9 Neut % (Auto) 51.6 Lymph % (Auto) 35.3 [place] % (Auto) 8.2 H Eos % (Auto) 3.8 Baso % (Auto) 1.1 Neut # (Auto) 3.9 Lymph # (Auto) 2.7 [place] # (Auto) 0.6 Eos # (Auto) 0.3 Baso # (Auto) 0.1 WBC Differential . Differential Comment Auto diff final POC Glucose 163 H 127 H Ammonia 04/26/18 06:17 WBC RBC Hgb Hct MCV MCH MCHC RDW Plt Count MPV Neut % (Auto) Lymph % (Auto) [place] % (Auto) Eos % (Auto) Baso % (Auto) Neut # (Auto) Lymph # (Auto) [place] # (Auto) Eos # (Auto) Baso # (Auto) WBC Differential Differential Comment POC Glucose Ammonia 36 H Review/Management - Review/Management Plan: imp fu eeg mri and labs fu abg nh3 nl neuro will fu on iv keppra 1000 bid
[2018-04-26 07:16] LABS: Anion Gap 5 meq/L (5-15); Blood Urea Nitrogen 22 mg/dL (7-18); Calcium 7.7 mg/dL (8.5-10.1); Carbon Dioxide 25.8 meq/L (21.0-32.0); Chloride 118 meq/L (98-107); Glucose,Random 126 mg/dL (74-106); Phosphorus 2.9 mg/dL (2.5-4.9); Potassium 3.5 meq/L (3.5-5.1); Sodium 149 meq/L (136-145)
--- NOTE | 2018-04-26 07:22 | MG ---
cc: Kyle Todd MD EEG RECORD NUMBER: [id number] DESCRIPTION: 2-3 Hz delta activity with occasional theta, high-frequency frontal artifact occurring in a generalized fashion. Limited driving with photic stimulation. Chewing artifact towards the end of recording, background did increment up to 5-6 Hz. Single lead EKG showing sinus rhythm. INTERPRETATION: Ibrk-iz-adrkdahk encephalopathy. Clinical correlation. Kyle Todd MD MG/sv/james , 06:51 AM , 06:55 AM
[2018-04-26 07:32] LABS: Alanine Aminotransferase 12 U/L (10-53); Alkaline Phosphatase 56 U/L (45-117); Aspartate Aminotransferase 27 U/L (15-37); Creatine Kinase 100 U/L (26-192); Folate 19.9 ng/mL (3.1-17.5); Free T4 (Free Thyroxine) 1.16 ng/dL (0.76-1.46); Glomerular Filtration Rate 76 mL/min (>89); Total Protein 4.9 g/dL (6.4-8.2); Vitamin B12 513 pg/mL (193-986)
[2018-04-26 07:34] LABS: ABG Base Excess -0.3 mmol/L (-2-2); ABG PCO2 44 mmHg (38-42); ABG PO2 72 mmHG (61-120)
[2018-04-26] MEDS: Senna/Docusate Sodium 8.6/50 MG Tablet PO SCH ×2 (08:05→20:45)
[2018-04-26] MEDS: Lisinopril 10 MG Tablet PO SCH (08:05)
[2018-04-26] MEDS: Fenofibrate 145 MG Tablet PO SCH (08:05)
[2018-04-26] MEDS: Insulin NovoLOG Aspart Correctional Sugar Inj SQ SCH ×4 (08:06→22:03)
[2018-04-26] MEDS: Enoxaparin Inj 40 MG/0.4 ML Syringe SQ SCH (08:06)
[2018-04-26] MEDS: Gabapentin 300 MG Capsule PO SCH ×2 (08:06→20:45)
--- NOTE | 2018-04-26 09:24 | P.PNPSY ---
Subjective Chief Complaint: Catatoniadepressed Remarks: April 26, 2018 Subjective: Patient remains basically catatonic responding only to her name. patient was seen by neurology who will follow patient. Patient has multiple medical issues that complicate any psychiatric treatment beyond the possibility of ECT. If the patient continues unresponsive to treatment with Lexapro, do not believe trial is on other psychotropic medicine is likely to make much in the way of a difference in the near future. Given the patient's complex medical history the addition of an antipsychotic is not felt garcia likely to produce any additional benefit. The patient is sleeping much of the time. At present she has IV Keppra running. This would complicate electroconvulsive treatment and would be need to be discontinued prior to trigger initiation of the ECT. I will consult with her primary psychiatrist returns on Sunday regarding initiation of a request for the electroconvulsive treatment Mental Status Examination Appearance: Appropriate Consciousness: Lethargic Orientation: Person Motor Activity: Other (Patient in bed and not cooperative with efforts to demonstrate motor activity) Speech: Hesitant, Slow (Only answered 1 question and she answered no) Language: Other (Lack of language or speech) Fund of Knowledge: Inadequate Attention and Concentration: Inadequate (Very limited) Memory: Impaired (Patient remains too depressed for adequate testing) Mood: Other (None reported) Affect: Flat Thought Process & Associations: Other (Untestable at this time thought to be intact) Thought Content: Thought blocking, Other (Today does not show motion when asked about her 's ) Hallucination Type: None Delusion Type: None Suicidal Ideation: No Suicidal Plan: No Suicidal Intention: No Homicidal Ideation: No Homicidal Plan: No Homicidal Intention: No Insight: Poor Judgment: Poor Assessment and Plan - Assessment (1) Delirium due to another medical condition Code(s): F05 - Delirium due to known physiological condition Status: Acute (2) Catatonia Code(s): F06.1 - Catatonic disorder due to known physiological condition Status: Acute - Plan Plan: Plan at this point is to stabilize patient medically and neurologically. There is no improvement in her catatonic depressed mood the best indications are for electroconvulsive therapy. Justification for Continued Inpatient Stay: Patient is unable to survive medically or psychologically without inpatient treatment.
[2018-04-26] MEDS: Sod Chloride 0.9% Inj 1,000 ML IV.CONT SCH ×2 (09:54→20:46)
[2018-04-26] MEDS: levETIRAcetam 1000mg/100mL Inj 100 ML IV.SIG SCH ×2 (10:11→21:59)
[2018-04-26 10:49] LABS: Anti-Nuclear Antibody Screen Pos (Neg)
--- NOTE | 2018-04-26 11:23 | P.PNFP ---
Subjective Interval history: 68 yo female with dementia, depression/anxiety, clavicle Fx on 04/18, HTN, DM now admitted to med/psych for acute catatonia. Medicine service consulted for management of HTN/DM and continuity of care. No events overnight per nursing. This morning her mental status is noted to not have improved, history unobtainable from patient. <Jordan Schrader S - 04/26/18 11:23> Results - Labs Result diagrams: 04/26/18 06:17 04/26/18 06:17 <Dino Rosenberg L - 04/26/18 22:08> Abnormal lab results 04/25/18 04/26/18 04/26/18 Range/Units 10:19 06:02 06:17 RBC 3.98 L (4.00-5.30) mil/mm3 [place] % (Auto) 8.2 H (0.0-8.0) % ABG pH (7.380-7.420) ABG pCO2 (38-42) mmHg Sodium (136-145) meq/L Chloride (98-107) meq/L BUN (7-18) mg/dL Estimated GFR (>89) mL/min POC Glucose 127 H (68-110) mg/dl Random Glucose (74-106) mg/dL Calcium (8.5-10.1) mg/dL Ammonia (11-32) mcmol/L Total Protein (6.4-8.2) g/dL Albumin (3.4-5.0) g/dL Folate (3.1-17.5) ng/mL Levetiracetam 8.1 L (12.0 - 46.0) mcg/mL LATONYA Screen (Neg) 04/26/18 04/26/18 04/26/18 Range/Units 06:17 06:17 06:17 RBC (4.00-5.30) mil/mm3 [place] % (Auto) (0.0-8.0) % ABG pH (7.380-7.420) ABG pCO2 (38-42) mmHg Sodium 149 H (136-145) meq/L Chloride 118 H (98-107) meq/L BUN 22 H (7-18) mg/dL Estimated GFR 76 L (>89) mL/min POC Glucose (68-110) mg/dl Random Glucose 126 H (74-106) mg/dL Calcium 7.7 L (8.5-10.1) mg/dL Ammonia 36 H (11-32) mcmol/L Total Protein 4.9 L D (6.4-8.2) g/dL Albumin 2.0 L (3.4-5.0) g/dL Folate 19.9 H (3.1-17.5) ng/mL Levetiracetam (12.0 - 46.0) mcg/mL LATONYA Screen Pos H (Neg) 04/26/18 04/26/18 04/26/18 Range/Units 07:24 11:14 20:07 RBC (4.00-5.30) mil/mm3 [place] % (Auto) (0.0-8.0) % ABG pH 7.36 L (7.380-7.420) ABG pCO2 44 H (38-42) mmHg Sodium (136-145) meq/L Chloride (98-107) meq/L BUN (7-18) mg/dL Estimated GFR (>89) mL/min POC Glucose 125 H 139 H (68-110) mg/dl Random Glucose (74-106) mg/dL Calcium (8.5-10.1) mg/dL Ammonia (11-32) mcmol/L Total Protein (6.4-8.2) g/dL Albumin (3.4-5.0) g/dL Folate (3.1-17.5) ng/mL Levetiracetam (12.0 - 46.0) mcg/mL LATONYA Screen (Neg) Short CBC 04/26/18 Range/Units 06:17 WBC 7.5 (4.0-11.0) th/mm3 Hgb 12.6 D (11.6-15.3) gm/dL Hct 37.2 (35.0-46.0) % Plt Count 174 (150-450) th/mm3 BMP 04/26/18 06:17 Sodium 149 H Potassium 3.5 Chloride 118 H Carbon Dioxide 25.8 BUN 22 H Creatinine 0.76 Calcium 7.7 L Cardiac Enzymes 04/26/18 Range/Units 06:17 Total Creatine Kinase 100 (26-192) U/L Liver Function 04/26/18 Range/Units 06:17 Total Bilirubin 0.4 (0.2-1.0) mg/dL Direct Bilirubin 0.2 (0.0-0.2) mg/dL AST 27 (15-37) U/L ALT 12 (10-53) U/L Alkaline Phosphatase 56 (45-117) U/L Albumin 2.0 L (3.4-5.0) g/dL <Dino Rosenberg L - 04/26/18 22:08> Abnormal lab results 04/26/18 04/26/18 04/26/18 Range/Units 06:02 06:17 06:17 RBC 3.98 L (4.00-5.30) mil/mm3 [place] % (Auto) 8.2 H (0.0-8.0) % ABG pH (7.380-7.420) ABG pCO2 (38-42) mmHg Sodium 149 H (136-145) meq/L Chloride 118 H (98-107) meq/L BUN 22 H (7-18) mg/dL Estimated GFR 76 L (>89) mL/min POC Glucose 127 H (68-110) mg/dl Random Glucose 126 H (74-106) mg/dL Calcium 7.7 L (8.5-10.1) mg/dL Ammonia (11-32) mcmol/L Total Protein 4.9 L D (6.4-8.2) g/dL Albumin 2.0 L (3.4-5.0) g/dL Folate 19.9 H (3.1-17.5) ng/mL LATONYA Screen (Neg) 04/26/18 04/26/18 04/26/18 Range/Units 06:17 06:17 07:24 RBC (4.00-5.30) mil/mm3 [place] % (Auto) (0.0-8.0) % ABG pH 7.36 L (7.380-7.420) ABG pCO2 44 H (38-42) mmHg Sodium (136-145) meq/L Chloride (98-107) meq/L BUN (7-18) mg/dL Estimated GFR (>89) mL/min POC Glucose (68-110) mg/dl Random Glucose (74-106) mg/dL Calcium (8.5-10.1) mg/dL Ammonia 36 H (11-32) mcmol/L Total Protein (6.4-8.2) g/dL Albumin (3.4-5.0) g/dL Folate (3.1-17.5) ng/mL [place] Screen Pos H (Neg) 04/26/18 Range/Units 11:14 RBC (4.00-5.30) mil/mm3 [place] % (Auto) (0.0-8.0) % ABG pH (7.380-7.420) ABG pCO2 (38-42) mmHg Sodium (136-145) meq/L Chloride (98-107) meq/L BUN (7-18) mg/dL Estimated GFR (>89) mL/min POC Glucose 125 H (68-110) mg/dl Random Glucose (74-106) mg/dL Calcium (8.5-10.1) mg/dL Ammonia (11-32) mcmol/L Total Protein (6.4-8.2) g/dL Albumin (3.4-5.0) g/dL Folate (3.1-17.5) ng/mL [place] Screen (Neg) Short CBC 04/26/18 Range/Units 06:17 WBC 7.5 (4.0-11.0) th/mm3 Hgb 12.6 D (11.6-15.3) gm/dL Hct 37.2 (35.0-46.0) % Plt Count 174 (150-450) th/mm3 BMP 04/26/18 06:17 Sodium 149 H Potassium 3.5 Chloride 118 H Carbon Dioxide 25.8 BUN 22 H Creatinine 0.76 Calcium 7.7 L Cardiac Enzymes 04/26/18 Range/Units 06:17 Total Creatine Kinase 100 (26-192) U/L Liver Function 04/26/18 Range/Units 06:17 Total Bilirubin 0.4 (0.2-1.0) mg/dL Direct Bilirubin 0.2 (0.0-0.2) mg/dL AST 27 (15-37) U/L ALT 12 (10-53) U/L Alkaline Phosphatase 56 (45-117) U/L Albumin 2.0 L (3.4-5.0) g/dL <Torres R3,Jordan S - 04/26/18 11:23> - Imaging Impressions Head MRI 04/26/18 21:22 CONCLUSION: 1. Diffuse cerebral atrophy is noted. 2. Moderate to severe periventricular and subcortical white matter small vessel ischemic changes are noted bilaterally. 3. Old lacunar infarcts are noted within the left abraham radiata. 4. No acute infarct, acute hemorrhage, midline shift or extra-axial bleed is noted. 5. No abnormal enhancing mass lesion is noted. <Dino Rosenberg - 04/26/18 22:08> Physical Exam Vital signs: Vital Signs 04/26/18 04:00 04/26/18 08:50 04/26/18 08:53 Temperature 97.7 F Pulse Rate 64 Respiratory Rate 16 16 Blood Pressure 139/66 Pulse Oximetry 93 L 94 L 04/26/18 16:51 Temperature 98.6 F Pulse Rate 66 Respiratory Rate 18 Blood Pressure 157/70 H Pulse Oximetry 96 Intake & Output 04/26/18 04/26/18 04/27/18 06:59 18:59 06:59 Intake Total 1200 / 1200 1380 / 1380 1000 / 1000 Balance 1200 / 1200 1380 / 1380 1000 / 1000 Intake: IV 1200 / 1200 1200 / 1200 1000 / 1000 NS Inj 1,000 ML @ 100 mls/hr IV 1000 / 1000 1000 / 1000 1000 / 1000 .CONT .Q10H [facility] Rx#:[id number] Ofirmev Inj 1,000 mg In 100 ml 100 / 100 100 / 100 @ 400 mls/hr IV.SIG Q8H [facility] Rx# :[id number] Keppra 1000 mg/100 mL Premix 100 / 100 100 / 100 100 ML @ 400 mls/hr IV.SIG Q12H [facility] Rx#:[id number] Oral 0 / 0 180 / 180 Other: # Voids 1 # Incontinent Voids 3 Date of Last Bowel Movement 04/23/18 04/26/18 <Dino Rosenberg L - 04/26/18 22:08> Vital Signs 04/25/18 17:06 04/25/18 20:38 04/26/18 04:00 Temperature 98.7 F 97.7 F Pulse Rate 77 64 Respiratory Rate 16 16 16 Blood Pressure 131/60 139/66 Pulse Oximetry 94 L 93 L 04/26/18 08:50 04/26/18 08:53 Temperature Pulse Rate Respiratory Rate 16 Blood Pressure Pulse Oximetry 94 L Intake & Output 04/25/18 04/26/18 04/26/18 18:59 06:59 18:59 Intake Total 1260 / 1260 1200 / 1200 1100 / 1100 Balance 1260 / 1260 1200 / 1200 1100 / 1100 Intake: IV 1200 / 1200 1200 / 1200 1100 / 1100 NS Inj 1,000 ML @ 100 mls/hr IV 1000 / 1000 1000 / 1000 1000 / 1000 .CONT .Q10H [facility] Rx#:[id number] Ofirmev Inj 1,000 mg In 100 ml 200 / 200 100 / 100 @ 400 mls/hr IV.SIG Q8H [facility] Rx# :[id number] Keppra 1000 mg/100 mL Premix 100 / 100 100 / 100 100 ML @ 400 mls/hr IV.SIG Q12H [facility] Rx#:[id number] Oral 60 / 60 0 / 0 0 / 0 Other: # Voids 2 1 Date of Last Bowel Movement 04/23/18 04/23/18 <Torres R3,Jordan S - 04/26/18 11:23> - Constitutional no acute distress, average body habitus, somnolent <Torres R3,Jordan S 11:23> - Routine HEENT Exam Head: Present: normocephalic, atraumatic <Torres R3,Jordan S 04/26/18 11:23> ENT: Present: mucous membranes moist <Torres R3,Jordan S 04/26/18 11:23> - Routine Respiratory Exam Present: CTA bilaterally. Absent: accessory muscle use, wheezes, crackles < Torres R3,Jordan S - 04/26/18 11:23> - Routine Cardiovascular Exam Present: RRR, S1, S2. Absent: murmur <Torres R3,Jordan S - 04/26/18 11:23> - Routine Abdominal Exam Present: soft <Torres R3,Jordan S 04/26/18 11:23> - Routine Extremities Exam Absent: cyanosis, edema <Torres R3,Jordan S 04/26/18 11:23> - Routine Skin Exam Present: intact <Torres R3,Jordan S 04/26/18 11:23> - Routine Neurological Exam Present: altered mental status (awakens to voice/touch, does not respond to commands/questions), normal tone <Torres R3,Jordan S 04/26/18 11:23> Assessment and Plan - Assessment and Plan Catatonia Unclear whether this is primary psychiatric or medically related, however medical work-up at recent hospital admission has been negative so most likely at this point it is related to psychiatric disorder. Initially improved with Ativan however now her mental status has gone back to how she was several days ago. No dysautonomia except for the elevated BP. CBC and CK within normal limits; no signs of NMS ABG essentially normal -Continue Lexapro and Seroquel -Per psychiatrist recommendation will continue Ativan 2 mg IV Q6H since she responded well to it initially (mental status was much better yesterday morning) ; hold for sedation or bradypnea -Given that she now doesn't seem to be responding to Ativan may benefit from ECT ? Defer to psychiatrist recommendations -Manage hypertension as noted below Seizure Disorder Now with possible repeat seizure last night EEG with nonspecific encephalopathy Ammonia very slightly elevated LATONYA screen positive, titer pending RF negative RPR negative ESR normal -Check Keppra level -Consult neurology, appreciate assistance -Increased Keppra to 1000 mg BID -Additional work up (labs, imaging) is pending -Treat catatonia as above Clavicle Fracture, right Stable, neurovascularly intact Will consult [facility]ost[facility] for sling placement for comfort Pain control with IV tylenol scheduled for now, will switch back to PO once catatonia improves Hypertension BP now stable Continue Catapres patch to 0.2 mg Continue home lisinopril once able to tolerate PO; will increase on discharge depending on BP Vasotec PRN Q6H for BP > 180/100 Diabetes mellitus BG at hospital goal now Check sugar AC/HS Continue metformin 1000 mg daily unless receiving IV contrast or some other contraindication noted Medicine service to follow, thank you for allowing us to continue being part of Mrs. Pedroza's care <Brian R3Jordan S - 04/26/18 11:23> - Attending Attestation The exam, history, and the medical decision-making described in the above note were completed with the assistance of the resident physician. I reviewed and agree with the findings presented. I attest that I had a [id number] encounter with the patient on the same day, and personally performed and documented my assessment and findings in the medical record. Seen and evaluated with Dr. Torres. She remains quite catatonic by our evaluation. She opens her eyes on command and will make eye contact, and answer a few simple yes or no questions. Thankfully, her MRI is negative for any acute process. It does show a number of chronic processes, including chronic ischemic changes and cortical atrophy that could underlie her dementia. EEG shows no seizure activity. Appreciate neurology and psychiatry co-management, will continue to follow her medically. <Dino Rosenberg - 04/26/18 22:08>
[2018-04-26] MEDS: Nystatin 100,000 UNITS/GM Powder 15 GM Bottle TOPICAL SCH ×2 (11:25→20:45)
[2018-04-26] MEDS ORDERED: Gadobutrol PF 7.5 MMOL/7.5 ML Vial (for RAD) IV.SIG ONE (16:06)
--- NOTE | 2018-04-26 16:28 | MR ---
EXAM DATE: 04/26/2018 4:22 PM EST AGE/SEX: 68 years / Female INDICATIONS: CVA. CLINICAL DATA: This is the patient's initial encounter. Patient reports that signs and symptoms have been present for 1 day and indicates a pain score of 9/10. MEDICAL/SURGICAL HISTORY: Hypertension. Diabetes mellitus type II. Stroke. Dementia, Non-Hod gkins lymphoma. . Right above the knee amputation, Wrist fracture. [place] [facility] [place]/O [place], [place]/21/2018. [facility] [place]/O [place]AST, 04/19/2018. . TECHNIQUE: Multiplanar, multisequence examination of the brain was performed without and with 6 ml Ga davist (gadobutrol) contrast as a single exam dose. FINDINGS: Diffuse cerebral atrophy is noted. Moderate to severe periventricular and subcortical white matter sm all vessel ischemic changes are noted bilaterally. Old lacunar infarcts are noted within the left cor arjun radiata. No acute infarct, acute hemorrhage, midline shift or extra-axial bleed is noted. No abno rmal enhancing mass lesion is noted. CONCLUSION: 1. Diffuse cerebral atrophy is noted. 2. Moderate to severe periventricular and subcortical white matter small vessel ischemic changes are noted bilaterally. 3. Old lacunar infarcts are noted within the left abraham radiata. 4. No acute infarct, acute hemorrhage, midline shift or extra-axial bleed is noted. 5. No abnormal enhancing mass lesion is noted. Electronically signed by: César Jimenez MD Board Certified Radiologist 04/26/2018 4:27 PM EST
[2018-04-27] MEDS: Sod Chloride 0.9% Inj 1,000 ML IV.CONT SCH (06:56)
[2018-04-27 09:25] LABS: Anion Gap 8 meq/L (5-15); Blood Urea Nitrogen 16 mg/dL (7-18); Calcium 8.1 mg/dL (8.5-10.1); Carbon Dioxide 22.4 meq/L (21.0-32.0); Chloride 117 meq/L (98-107); Glomerular Filtration Rate Greater Than 89 mL/min (>89); Glucose,Random 99 mg/dL (74-106); Potassium 3.5 meq/L (3.5-5.1); Sodium 147 meq/L (136-145)
[2018-04-27] MEDS: Enoxaparin Inj 40 MG/0.4 ML Syringe SQ SCH (09:42)
[2018-04-27] MEDS: Insulin NovoLOG Aspart Correctional Sugar Inj SQ SCH ×3 (09:42→16:58)
[2018-04-27] MEDS: Lisinopril 10 MG Tablet PO SCH (09:43)
[2018-04-27] MEDS: Senna/Docusate Sodium 8.6/50 MG Tablet PO SCH ×2 (09:43→22:05)
[2018-04-27] MEDS: Gabapentin 300 MG Capsule PO SCH ×2 (09:43→22:04)
[2018-04-27] MEDS: Nystatin 100,000 UNITS/GM Powder 15 GM Bottle TOPICAL SCH ×2 (09:43→22:05)
[2018-04-27] MEDS: Fenofibrate 145 MG Tablet PO SCH (09:43)
--- NOTE | 2018-04-27 10:40 | P.PNNEU ---
Subjective Subjective Comments: Cross cover. somnolent but did alert to rn. rn states ativan does appear to help her Active Medications: Active Medications Acetaminophen (Tylenol) 500 mg PO QID [facility] Last Admin: 04/25/18 10:46 Dose: Not Given Hydrocodone Bitart/Acetaminophen ([place] 5/325) 1 tab PO Q6H PRN PRN Reason: BREAKTHROUGH PAIN Al Hydrox/Mg Hydrox/Simethicone (Mag-Al Plus Susp Liq) 30 ml PO Q6H PRN PRN Reason: DYSPEPSIA Al Hydroxide/Mg Hydroxide (Milk Of Magnesia Liq) 30 ml PO Q24H PRN PRN Reason: CONSTIPATION Al Hydroxide/Mg Hydroxide (Milk Of Magnesia Liq) 30 ml PO Q12H PRN PRN Reason: Mild Constipation Atorvastatin Calcium (Lipitor) 40 mg PO HS [facility] Last Admin: 04/26/18 20:45 Dose: 40 mg Bisacodyl (Dulcolax Supp) 10 mg RECTAL DAILY PRN PRN Reason: SEVERE CONSITIPATION Clonidine HCl (Catapress-Tts 0.2 Mg Patch.7d) 1 patch T-DERMAL Q7D [facility] Last Admin: 04/25/18 17:07 Dose: 1 patch Dextrose (D50w Vial) 50 ml IV.PUSH UNSCH PRN PRN Reason: PER HYPOGLYCEMIA PROTOCOL Enalaprilat (Vasotec Inj) 2.5 mg IV.PUSH Q6H PRN PRN Reason: SBP>200, DBP>100 Enoxaparin Sodium (Lovenox Inj) 40 mg SQ Q24H [facility] Last Admin: 04/27/18 09:42 Dose: 40 mg Escitalopram Oxalate (Lexapro) 20 mg PO DAILY [facility] Last Admin: 04/27/18 09:42 Dose: 20 mg Fenofibrate (Tricor) 145 mg PO DAILY [facility] Last Admin: 04/27/18 09:43 Dose: 145 mg Gabapentin (Neurontin) 600 mg PO BID [facility] Last Admin: 04/27/18 09:43 Dose: 600 mg Glucagon (Glucagon Inj) 1 mg OTHER PRN PRN PRN Reason: for Hypoglycemia Protocol Sodium Chloride (Ns Inj) 1,000 mls @ 100 mls/hr IV.CONT .Q10H [facility] Last Admin: 04/27/18 06:56 Dose: 100 mls/hr Levetiracetam (Keppra 1000 Mg/100 Ml Premix) 100 mls @ 400 mls/hr IV.SIG Q12H [facility] Last Admin: 04/26/18 21:59 Dose: 400 mls/hr Ibuprofen (Motrin) 600 mg PO Q8H PRN PRN Reason: PAIN 1-10 AND/OR FEVER >101F Insulin Aspart (Novolog Insulin Correctional Sugar Inj) 0 unit SQ ACHS [facility]; Protocol Last Admin: 04/27/18 09:42 Dose: Not Given Lactulose (Lactulose Liq) 30 ml PO DAILY PRN PRN Reason: SEVERE CONSITIPATION Lisinopril (Prinivil) 10 mg PO DAILY [facility] Last Admin: 04/27/18 09:43 Dose: 10 mg Lorazepam (Ativan Inj) 2 mg IV.PUSH Q6H [facility] Last Admin: 04/27/18 10:27 Dose: 2 mg Nystatin (Mycostatin Powder) 1 applicatio TOPICAL BID [facility] Last Admin: 04/27/18 09:43 Dose: Not Given Ondansetron HCl (Zofran Inj) 4 mg IV.PUSH Q6H PRN PRN Reason: NAUSEA OR VOMITING Patch Removal (Remove Old Patch) 1 each T-DERMAL Q7D [facility] Patch Removal (Remove Old Patch) 1 each T-DERMAL Q7D [facility] Last Admin: 04/25/18 17:07 Dose: 1 each Senna/Docusate Sodium (Laeah-Colace) 1 tab PO BID [facility] Last Admin: 04/27/18 09:43 Dose: 1 tab Sennosides (Senokot) 17.2 mg PO Q12H PRN PRN Reason: Moderate Constipation Sodium Chloride (Ns Flush) 2 ml IV.FLUSH BID [facility] Last Admin: 04/27/18 09:43 Dose: Not Given Sodium Chloride (Ns Flush) 2 ml IV.FLUSH PRN PRN PRN Reason: FLUSH AFTER USING IV ACCESS Allergies/Adverse Reactions: Allergies Allergy/AdvReac Type Severity Reaction Status Date / Time iodine Allergy Swelling Verified 04/19/18 15:50 Review of Systems unobtainable due to mental status Physical Exam Vital signs: Vital Signs 04/26/18 16:51 04/27/18 05:50 Temperature 98.6 F 96.5 F L Pulse Rate 66 57 L Respiratory Rate 18 18 Blood Pressure 157/70 H 185/81 H Pulse Oximetry 96 96 Intake & Output 04/26/18 04/27/18 04/27/18 18:59 06:59 18:59 Intake Total 1380 / 1380 1999 Balance 1380 / 1380 1999 Intake: IV 1200 / 1200 1999 NS Inj 1,000 ML @ 100 mls/hr IV 1000 / 1000 1999 .CONT .Q10H [facility] Rx#:[id number] Ofirmev Inj 1,000 mg In 100 ml 100 / 100 @ 400 mls/hr IV.SIG Q8H [facility] Rx# :[id number] Keppra 1000 mg/100 mL Premix 100 / 100 100 ML @ 400 mls/hr IV.SIG Q12H [facility] Rx#:[id number] Oral 180 / 180 0 / 0 Other: # Voids 1 # Incontinent Voids 3 # Urine Diapers 2 Date of Last Bowel Movement 04/26/18 # Bowel Movements 1 Narrative: sleeping, arousable, whispers one word, not following well. no gaze deviation, neck supple, allen to gravity except rt leg ampuation, planterflexor, no clonus, withdraws to pin - Constitutional no acute distress - Routine HEENT Exam Head: Present: normocephalic Eye: Present: EOMI Objective Laboratory Results - last 24 hr 04/25/18 04/26/18 04/26/18 10:19 06:17 11:14 Sodium Potassium Chloride Carbon Dioxide Anion Gap BUN Creatinine Estimated GFR POC Glucose 125 H Random Glucose Calcium Levetiracetam 8.1 L LATONYA Screen Pos H RPR Nonreactive 04/26/18 04/26/18 04/27/18 17:01 20:07 06:52 Sodium Potassium Chloride Carbon Dioxide Anion Gap BUN Creatinine Estimated GFR POC Glucose 100 139 H 102 Random Glucose Calcium Levetiracetam LATONYA Screen RPR 04/27/18 08:02 Sodium 147 H Potassium 3.5 Chloride 117 H Carbon Dioxide 22.4 Anion Gap 8 BUN 16 Creatinine 0.64 Estimated GFR Greater than 89 POC Glucose Random Glucose 99 Calcium 8.1 L Levetiracetam LATONYA Screen RPR Review/Management - Diagnosis (1) Encephalopathy Code(s): G93.40 - Encephalopathy, unspecified Status: Acute Current Visit: Yes (2) HTN (hypertension) Code(s): I10 - Essential (primary) hypertension Status: Acute Current Visit : No (3) Anxiety Code(s): F41.9 - Anxiety disorder, unspecified Status: Acute Current Visit: No - Review/Management Plan: imp fu eeg mri and labs fu abg nh3 nl neuro will fu on iv keppra 1000 bid Daily Summary: 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 may have element of PRES recs check csf studies bp control watch mild hypercapnia follow exam
[2018-04-27] MEDS: levETIRAcetam 1000mg/100mL Inj 100 ML IV.SIG SCH ×2 (11:12→22:17)
--- NOTE | 2018-04-27 11:13 | P.PNFP ---
Subjective Interval history: 68 yo female with dementia, depression/anxiety, clavicle Fx on 04/18, HTN, DM now admitted to med/psych for acute catatonia. Medicine service consulted for management of HTN/DM and continuity of care. No events overnight per nursing. This morning her mental status is noted to not have improved, history unobtainable from patient. <Brian Jordan Tyson S - 04/27/18 11:13> Results - Labs Result diagrams: 04/26/18 06:17 04/30/18 08:16 <Dino Rosenberg L - 05/01/18 12:28> Abnormal lab results 04/25/18 04/26/18 04/26/18 Range/Units 10:19 11:14 20:07 Sodium (136-145) meq/L Chloride (98-107) meq/L POC Glucose 125 H 139 H (68-110) mg/dl Calcium (8.5-10.1) mg/dL Levetiracetam 8.1 L (12.0 - 46.0) mcg/mL 04/27/18 Range/Units 08:02 Sodium 147 H (136-145) meq/L Chloride 117 H (98-107) meq/L POC Glucose (68-110) mg/dl Calcium 8.1 L (8.5-10.1) mg/dL Levetiracetam (12.0 - 46.0) mcg/mL BMP 04/27/18 08:02 Sodium 147 H Potassium 3.5 Chloride 117 H Carbon Dioxide 22.4 BUN 16 Creatinine 0.64 Calcium 8.1 L <Brian Jordan Tyson S - 04/27/18 11:13> - Imaging Impressions Head MRI 04/26/18 21:22 CONCLUSION: 1. Diffuse cerebral atrophy is noted. 2. Moderate to severe periventricular and subcortical white matter small vessel ischemic changes are noted bilaterally. 3. Old lacunar infarcts are noted within the left abraham radiata. 4. No acute infarct, acute hemorrhage, midline shift or extra-axial bleed is noted. 5. No abnormal enhancing mass lesion is noted. <Brian Jordan Tyson S - 04/27/18 11:13> Physical Exam Vital signs: Intake & Output 04/30/18 05/01/18 05/01/18 18:59 06:59 18:59 Intake Total 1120 / 1120 Balance 1120 / 1120 Intake: IV 1000 / 1000 NS + KCl 40 mEq Inj 1,000 ML @ 1000 / 1000 100 mls/hr IV.CONT .Q10H [facility] Rx #:[id number] Oral 120 / 120 <Dino Rosenberg - 05/01/18 12:28> Vital Signs 04/26/18 16:51 04/27/18 05:50 Temperature 98.6 F 96.5 F L Pulse Rate 66 57 L Respiratory Rate 18 18 Blood Pressure 157/70 H 185/81 H Pulse Oximetry 96 96 Intake & Output 04/26/18 04/27/18 04/27/18 18:59 06:59 18:59 Intake Total 1380 / 1380 1999 Balance 1380 / 1380 1999 Intake: IV 1200 / 1200 1999 NS Inj 1,000 ML @ 100 mls/hr IV 1000 / 1000 1999 .CONT .Q10H [facility] Rx#:[id number] Ofirmev Inj 1,000 mg In 100 ml 100 / 100 @ 400 mls/hr IV.SIG Q8H [facility] Rx# :[id number] Keppra 1000 mg/100 mL Premix 100 / 100 100 ML @ 400 mls/hr IV.SIG Q12H [facility] Rx#:[id number] Oral 180 / 180 0 / 0 Other: # Voids 1 # Incontinent Voids 3 # Urine Diapers 2 Date of Last Bowel Movement 04/26/18 # Bowel Movements 1 <Torres R3,Jordan S - 04/27/18 11:13> - Constitutional no acute distress, average body habitus <Torres R3,Jordan S - 04/27/18 11:13> - Routine HEENT Exam Head: Present: normocephalic, atraumatic <Torres R3,Jordan S - 04/27/18 11:13> ENT: Present: mucous membranes moist <Torres R3,Jordan S - 04/27/18 11:13> - Routine Respiratory Exam Present: CTA bilaterally. Absent: accessory muscle use, wheezes, crackles < Torres R3,Jordan S - 04/27/18 11:13> - Routine Cardiovascular Exam Present: RRR, S1, S2. Absent: murmur <Torres R3,Jordan S - 04/27/18 11:13> - Routine Abdominal Exam Present: soft <Torres R3,Jordan S - 04/27/18 11:13> - Routine Extremities Exam Absent: cyanosis, edema <Jordan Schrader - 04/27/18 11:13> Comments: s/p above knee amputation RLE <Jordan Schrader - 04/27/18 11:13> - Routine Skin Exam Present: intact <Jordan Schrader 04/27/18 11:13> - Routine Neurological Exam Somnolent, opens eyes to touch, does not respond to questions, normal muscle tone <Jordan Schrader - 04/27/18 11:13> - Routine Psychiatric Exam Present: unable to assess <Jordan Schrader 04/27/18 11:13> Assessment and Plan - Assessment (1) Catatonia (2) Seizures (3) HTN (hypertension) (4) Clavicle fracture (5) Type 2 diabetes mellitus <Jordan Schrader 04/27/18 11:08> (1) Catatonia Code(s): F06.1 - Catatonic disorder due to known physiological condition Status: Acute (2) Seizures Code(s): R56.9 - Unspecified convulsions Status: Acute (3) HTN (hypertension) Code(s): I10 - Essential (primary) hypertension Status: Acute (4) Clavicle fracture Code(s): S42.009A - Fracture of unspecified part of unspecified clavicle, initial encounter for closed fracture Status: Acute (5) Type 2 diabetes mellitus Code(s): E11.9 - Type 2 diabetes mellitus without complications Status: Chronic <Dino Rosenberg - 05/01/18 12:28> - Assessment and Plan Catatonia Medical work-up has been negative so most likely at this point it is related to psychiatric disorder. Initially improved with Ativan however now her mental status has gone back to how she was several days ago. No dysautonomia except for the elevated BP. CBC and CK within normal limits; no signs of NMS ABG essentially normal -Continue Lexapro and Seroquel -Per psychiatrist recommendation will continue Ativan 2 mg IV Q6H since she responded well to it initially (mental status was much better yesterday morning) ; hold for sedation or bradypnea -Given that she now doesn't seem to be responding to Ativan may benefit from ECT. Defer to psychiatrist recommendations. -Manage hypertension as noted below -Attempted to contact daughter to again clarify patient's baseline mental status (has dementia at baseline but per daughter originally said all this behavior is very abnormal), but got voicemail Seizure Disorder Now with possible repeat seizure a few days ago EEG with nonspecific encephalopathy Ammonia very slightly elevated LATONYA screen positive, titer pending RF negative RPR negative ESR normal Keppra level was low MRI unremarkable -Consult neurology, appreciate assistance -Continue Keppra to 1000 mg IV BID -Additional work up (labs, imaging) is pending -Treat catatonia as above Clavicle Fracture, right Stable, neurovascularly intact Consulted orthotech for sling placement for comfort Pain control with IV tylenol scheduled for now, will switch back to PO once catatonia improves Hypertension BP still intermittently elevated Continue Catapres patch to 0.2 mg Continue home lisinopril once able to tolerate PO; will increase on discharge depending on BP Vasotec PRN Q6H for BP > 200/100 Diabetes mellitus BG at hospital goal now Check sugar AC/HS Continue metformin 1000 mg daily unless receiving IV contrast or some other contraindication noted Fluids: IV NS at 100 CC/HR DVT: Lovenox 40 mg SQ daily Medicine service to follow, thank you for allowing us to continue being part of Mrs. Pedroza's care <Jordan Schrader S - 04/27/18 11:13> - Attending Attestation The exam, history, and the medical decision-making described in the above note were completed with the assistance of the resident physician. I reviewed and agree with the findings presented. I attest that I had a [id number] encounter with the patient on the same day, and personally performed and documented my assessment and findings in the medical record. <Dino Rosenberg - 05/01/18 12:28> <Dino Rosenberg - Last Filed: 05/01/18 12:28> (3) HTN (hypertension) Qualifiers: Hypertension type: other secondary hypertension Qualified Code(s): I15.8 - Other secondary hypertension (4) Clavicle fracture Qualifiers: Encounter type: subsequent encounter Fracture type: closed Laterality: right (5) Type 2 diabetes mellitus Qualifiers: Diabetes mellitus longterm insulin use: without longterm use Diabetes mellitus complication status: without complication Qualified Code(s): E11.9 - Type 2 diabetes mellitus without complications <Dino Rosenberg - Last Filed: 05/01/18 12:28> (3) HTN (hypertension) Qualifiers: Hypertension type: other secondary hypertension Qualified Code(s): I15.8 - Other secondary hypertension (4) Clavicle fracture Qualifiers: Encounter type: subsequent encounter Fracture type: closed Laterality: right (5) Type 2 diabetes mellitus Qualifiers: Diabetes mellitus longterm insulin use: without ferry terminal agent use Diabetes mellitus complication status: without complication Qualified Code(s): E11.9 - Type 2 diabetes mellitus without complications
[2018-04-27] MEDS ORDERED: Lisinopril 10 MG Tablet PO ONE (11:51)
--- NOTE | 2018-04-27 14:01 | P.PNPSY ---
Subjective Chief Complaint: Catatoniadepressed Remarks: Patient was seen and case discussed with nursing. Patient remains catatonic and mostly nonresponsive during the interview. She is oriented to self. Compliant with her medications. Has not had any outbursts. Review of Systems All other systems reviewed negative except as stated in HPI Mental Status Examination Appearance: Appropriate Consciousness: Lethargic Orientation: Person Motor Activity: Other (Patient in bed and not cooperative with efforts to demonstrate motor activity) Speech: Hesitant, Slow (Only answered 1 question and she answered no) Language: Other (Lack of language or speech) Fund of Knowledge: Inadequate Attention and Concentration: Inadequate (Very limited) Memory: Impaired (Patient remains too depressed for adequate testing) Mood: Other (None reported) Affect: Flat Thought Process & Associations: Other (Untestable at this time thought to be intact) Thought Content: Thought blocking, Other (Today does not show motion when asked about her 's ) Hallucination Type: None Delusion Type: None Suicidal Ideation: No Suicidal Plan: No Suicidal Intention: No Homicidal Ideation: No Homicidal Plan: No Homicidal Intention: No Insight: Poor Judgment: Poor Assessment and Plan - Assessment (1) Delirium due to another medical condition Code(s): F05 - Delirium due to known physiological condition Status: Acute (2) Catatonia Code(s): F06.1 - Catatonic disorder due to known physiological condition Status: Acute - Plan Plan: Continue current treatment plan Justification for Continued Inpatient Stay: Patient would decompensate in a less restrictive setting
--- NOTE | 2018-04-27 15:07 | MR ---
EXAM DATE: 04/27/2018 2:42 PM EST AGE/SEX: 68 years / Female INDICATIONS: Altered mental status. CLINICAL DATA: This is the patient's initial encounter. Patient reports that signs and symptoms have been present for 4 - 6 days and indicates a pain score of 0/10. MEDICAL/SURGICAL HISTORY: Diabetes mellitus type II. Hypertension. Dementia. CVA. . Right a theresa the knee amputation. ORIF wrist. COMPARISON: [facility] [place] W & W/O CONTRAST, 04/26/2018. . TECHNIQUE: 3D [id number] MRA was performed. Source images, multiplanar STS MIP, and 3D volum e MIP reconstructions were reviewed. FINDINGS: There is excellent visualization of the major intracranial arteries out to the second-order branch ve ssels. There is no evidence for aneurysm, vessel truncation or stenosis, and no evidence for vascula r malformation. CONCLUSION: 1. Negative MRA [place] ([place]) non contrast. Electronically signed by: César Jimenez MD Board Certified Radiologist 04/27/2018 3:05 PM EST
--- NOTE | 2018-04-27 15:09 | MR ---
EXAM DATE: 04/27/2018 2:42 PM EST AGE/SEX: 68 years / Female INDICATIONS: Altered mental status. CLINICAL DATA: This is the patient's initial encounter. Patient reports that signs and symptoms have been present for 1 day and indicates a pain score of 0/10. MEDICAL/SURGICAL HISTORY: Hypertension. Diabetes mellitus type II. Dementia. CVA. . Right a theresa the knee amputation. ORIF wrist. COMPARISON: [facility] – [place], MRA HEAD W/O CONTRAST, 04/27/2018. [facility] [place], [place] HEAD W & W/O CONTRAST, 04/26/2018. . TECHNIQUE: MR cerebral venography is performed without contrast. Source images, 3D volume MIP, and s liding thin slab MIP reconstructions were reviewed. FINDINGS: There is excellent visualization of the cerebral venous sinuses. The superior sagittal sinus, torcula r herophili, transverse sinuses and sigmoid sinuses are patent. There is no evidence of sinus thrombo sis. CONCLUSION: 1. Negative MRV Brain non contrast. Electronically signed by: César Jimenez MD Board Certified Radiologist 04/27/2018 3:08 PM EST
[2018-04-28] MEDS: Insulin NovoLOG Aspart Correctional Sugar Inj SQ SCH ×5 (03:50→22:04)
[2018-04-28] MEDS: Sod Chloride 0.9% Inj 1,000 ML IV.CONT SCH ×4 (03:51→20:34)
[2018-04-28 08:31] LABS: Calcium 7.8 mg/dL (8.5-10.1); Carbon Dioxide 27.5 meq/L (21.0-32.0); Potassium 3.3 meq/L (3.5-5.1)
--- NOTE | 2018-04-28 08:58 | P.PNFP ---
Subjective Interval history: Ms Pedroza is known to me from her prior admission before transfer to [facility]. She came in with acute changes in her behavior. Evidently her about a month prior to her initial admission to the hospital. She had been alert and moving around in her normal purposeful way about 2 weeks prior according to an office visit with a request for a motorized wheelchair. On admission, she would spontaneously cry but would answer questions usually in one to 2 word answers. However, according to the notes she worsened and became acutely catatonic. She refused all po and subsequently had a seizure likely;y because she had been refusing to take her po meds. She is now admitted to [facility] and is receiving Ativan for her catatonia which does help for the short term per her nurse. She may be a candidate for ECT as that is a good treatment for catatonia. ECT has been done here at [place] in the past but it is not performed frequently nor regularly. Will discuss with her Psychiatrist tomorrow whether she should be transferred to a hospital that does ECT often or if that can or should be considered here. Ms Pedroza is otherwise unable to give any ROS or history now. She was arousable but did not spontaneously move or speak for me this am. She is reportedly taking her meds and eating and drinking to some extent. Results - Labs Result diagrams: 04/26/18 06:17 04/28/18 07:33 Abnormal lab results 04/27/18 04/27/18 04/28/18 Range/Units 08:02 23:39 07:33 Sodium 147 H 147 H (136-145) meq/L Potassium 3.3 L (3.5-5.1) meq/L Chloride 117 H 114 H (98-107) meq/L Estimated GFR 77 L (>89) mL/min POC Glucose 128 H (68-110) mg/dl Random Glucose 115 H (74-106) mg/dL Calcium 8.1 L 7.8 L (8.5-10.1) mg/dL Ammonia (11-32) mcmol/L 04/28/18 04/28/18 Range/Units 07:33 07:46 Sodium (136-145) meq/L Potassium (3.5-5.1) meq/L Chloride (98-107) meq/L Estimated GFR (>89) mL/min POC Glucose 136 H (68-110) mg/dl Random Glucose (74-106) mg/dL Calcium (8.5-10.1) mg/dL Ammonia 40 H (11-32) mcmol/L BMP 04/27/18 04/28/18 08:02 07:33 Sodium 147 H 147 H Potassium 3.5 3.3 L Chloride 117 H 114 H Carbon Dioxide 22.4 27.5 BUN 16 16 Creatinine 0.64 0.75 Calcium 8.1 L 7.8 L - Imaging Impressions Head MRA 04/27/18 13:41 CONCLUSION: 1. Negative MRA Cow ([place]) non contrast. Head/Brain Mag Res Venography 04/27/18 13:42 CONCLUSION: 1. Negative MRV Brain non contrast. Physical Exam Vital signs: Vital Signs 04/27/18 10:00 04/27/18 11:05 04/27/18 12:45 Pulse Rate 58 L 57 L 56 L Respiratory Rate Blood Pressure 214/91 H 205/88 H 193/87 H Pulse Oximetry 04/27/18 14:00 04/27/18 15:44 04/27/18 20:00 Pulse Rate 59 L Respiratory Rate 20 Blood Pressure 203/91 H Pulse Oximetry 94 L 04/28/18 07:08 Pulse Rate Respiratory Rate Blood Pressure 200/80 H Pulse Oximetry Intake & Output 04/27/18 04/28/18 04/28/18 18:59 06:59 18:59 Intake Total 620 / 620 460 / 460 Balance 620 / 620 460 / 460 Intake: IV 100 / 100 100 / 100 Keppra 1000 mg/100 mL Premix 100 / 100 100 / 100 100 ML @ 400 mls/hr IV.SIG Q12H [facility] Rx#:[id number] Oral 520 / 520 360 / 360 Other: # Voids 2 4 Date of Last Bowel Movement 04/27/18 04/27/18 - Constitutional no acute distress, somnolent - Routine HEENT Exam Head: Present: normocephalic, atraumatic. Absent: facial swelling Eye: Absent: periorbital swelling ENT: Present: external ear normal - Routine Neck Exam Present: trachea midline. Absent: JVD - Routine Respiratory Exam Absent: accessory muscle use, patient mechanically ventilated, decreased breath sounds, prolonged expiratory phase, rales, respiratory distress, rhonchi, stridor, wheezes, crackles, distant breath sounds, diminished air movement - Routine Cardiovascular Exam Present: RRR. Absent: murmur, gallop, rubs - Routine Abdominal Exam Present: soft - Routine Extremities Exam Absent: cyanosis, clubbing, edema - Routine Skin Exam Present: intact. Absent: cyanosis, erythema - Routine Neurological Exam Present: CN II-XII intact, altered mental status, moving all extremities. Absent: alert, oriented X3, motor deficit - Detailed Neurological Exam: Coma Scale Eye Opening: To pressure Verbal Response: Words Motor Response: Obey commands Jessica Coma Scale Total: 11 - Routine Psychiatric Exam Present: depressed, unable to assess. Absent: normal affect, normal thought process, suicidal ideation, homicidal ideation, cooperative, good insight, good judgment Assessment and Plan - Assessment and Plan Catatonia Medical work-up has been negative so most likely at this point it is related to psychiatric disorder. Initially improved with Ativan however now her mental status has gone back to how she was several days ago. No dysautonomia except for the elevated BP. CBC and CK within normal limits; no signs of NMS ABG essentially normal -Continue Lexapro and Seroquel -Per psychiatrist recommendation will continue Ativan 2 mg IV Q6H since she responded well to it initially (mental status was better per her nurse after ativan); hold for sedation or bradycardia or apnea -Given that she now doesn't seem to be responding to Ativan as well may benefit from ECT. Defer to psychiatrist recommendations. In the distant past, greater than 5 years ago, a pt of mine who was catatonic received ECT here at [place] but it is not done regularly. Can see if there may be a way to transfer her to a hospital that performs this procedure regularly as she would almost certainly get better faster than meds alone -Manage hypertension as noted below Seizure Disorder Now with possible repeat seizure a some days ago EEG with nonspecific encephalopathy Ammonia very slightly elevated LATONYA screen positive, titer pending RF negative RPR negative ESR normal Keppra level was low MRI unremarkable -Consulted neurology, appreciate assistance -Continue Keppra to 1000 mg IV BID -Additional work up (labs, imaging) is pending -Treat catatonia as above she evidently did not take her Keppra pills which could have led to the seizure Clavicle Fracture, right Stable, neurovascularly intact Consulted orthotech for sling placement for comfort Pain control with IV tylenol scheduled for now, will switch back to PO once catatonia improves Hypertension BP still intermittently elevated Continue Catapres patch to 0.2 mg Continue home lisinopril once able to tolerate PO; will increase on discharge depending on BP Vasotec PRN Q6H for BP > 200/100 per her nurse, she takes her meds better so can consider a diuretic and other po meds. Catatonia can give high BP Diabetes mellitus BG at hospital goal now Check sugar AC/HS Continue metformin 1000 mg daily unless receiving IV contrast or some other contraindication noted Fluids: IV NS at 100 CC/HR DVT: Lovenox 40 mg SQ daily agree with PT to do ROM. Per staff, she is moving more than before and even sat up a bit earlier today and asked for a [facility] Medicine service to follow, thank you for allowing us to continue being part of Mrs. Pedroza's care
[2018-04-28] MEDS ORDERED: hydrALAZINE 10 MG Tablet PO SCH (09:00)
[2018-04-28] MEDS: Fenofibrate 145 MG Tablet PO SCH (09:45)
[2018-04-28] MEDS: Senna/Docusate Sodium 8.6/50 MG Tablet PO SCH ×2 (09:45→20:31)
[2018-04-28] MEDS: levETIRAcetam 1000mg/100mL Inj 100 ML IV.SIG SCH ×2 (09:45→22:04)
[2018-04-28] MEDS: Gabapentin 300 MG Capsule PO SCH ×2 (09:45→20:32)
[2018-04-28] MEDS: Enoxaparin Inj 40 MG/0.4 ML Syringe SQ SCH (09:45)
[2018-04-28] MEDS: Lisinopril 10 MG Tablet PO SCH (09:45)
[2018-04-28] MEDS: Nystatin 100,000 UNITS/GM Powder 15 GM Bottle TOPICAL SCH ×2 (10:31→20:33)
[2018-04-28] MEDS ORDERED: hydrALAZINE 10 MG Tablet PO PRN (11:55)
--- NOTE | 2018-04-28 13:35 | P.PNPSY ---
Subjective Chief Complaint: Catatoniadepressed Remarks: Patient remains catatonic. She is minimally interactive with a flat affect. Internally preoccupied. Compliant with medications and has not had any outbursts Review of Systems All other systems reviewed negative except as stated in HPI Mental Status Examination Appearance: Appropriate Consciousness: Lethargic Orientation: Person Motor Activity: Other (Patient in bed and not cooperative with efforts to demonstrate motor activity) Speech: Hesitant, Slow (Only answered 1 question and she answered no) Language: Other (Lack of language or speech) Fund of Knowledge: Inadequate Attention and Concentration: Inadequate (Very limited) Memory: Impaired (Patient remains too depressed for adequate testing) Mood: Other (None reported) Affect: Flat Thought Process & Associations: Other (Untestable at this time thought to be intact) Thought Content: Thought blocking, Other (Today does not show motion when asked about her 's ) Hallucination Type: None Delusion Type: None Suicidal Ideation: No Suicidal Plan: No Suicidal Intention: No Homicidal Ideation: No Homicidal Plan: No Homicidal Intention: No Insight: Poor Judgment: Poor Assessment and Plan - Assessment (1) Delirium due to another medical condition Code(s): F05 - Delirium due to known physiological condition Status: Acute (2) Catatonia Code(s): F06.1 - Catatonic disorder due to known physiological condition Status: Acute - Plan Plan: Continue current treatment plan Justification for Continued Inpatient Stay: Patient would decompensate in a less restrictive setting
--- NOTE | 2018-04-28 13:51 | P.PNNEU ---
Subjective Subjective Comments: No cp, no dyspnea, no aiken, no focal weakness, no vision loss Active Medications: Active Medications Acetaminophen (Tylenol) 500 mg PO QID [facility] Last Admin: 04/25/18 10:46 Dose: Not Given Hydrocodone Bitart/Acetaminophen ([place] 5/325) 1 tab PO Q6H PRN PRN Reason: BREAKTHROUGH PAIN Last Admin: 04/28/18 05:42 Dose: 1 tab Al Hydrox/Mg Hydrox/Simethicone (Mag-Al Plus Susp Liq) 30 ml PO Q6H PRN PRN Reason: DYSPEPSIA Al Hydroxide/Mg Hydroxide (Milk Of Magnesia Liq) 30 ml PO Q24H PRN PRN Reason: CONSTIPATION Al Hydroxide/Mg Hydroxide (Milk Of Magnesia Liq) 30 ml PO Q12H PRN PRN Reason: Mild Constipation Atorvastatin Calcium (Lipitor) 40 mg PO HS [facility] Last Admin: 04/27/18 22:05 Dose: 40 mg Bisacodyl (Dulcolax Supp) 10 mg RECTAL DAILY PRN PRN Reason: SEVERE CONSITIPATION Clonidine HCl (Catapress-Tts 0.2 Mg Patch.7d) 1 patch T-DERMAL Q7D [facility] Last Admin: 04/25/18 17:07 Dose: 1 patch Dextrose (D50w Vial) 50 ml IV.PUSH UNSCH PRN PRN Reason: PER HYPOGLYCEMIA PROTOCOL Enalaprilat (Vasotec Inj) 2.5 mg IV.PUSH Q6H PRN PRN Reason: SBP>200, DBP>100 Last Admin: 04/28/18 05:43 Dose: 2.5 mg Enoxaparin Sodium (Lovenox Inj) 40 mg SQ Q24H [facility] Last Admin: 04/28/18 09:45 Dose: 40 mg Escitalopram Oxalate (Lexapro) 20 mg PO DAILY [facility] Last Admin: 04/28/18 09:45 Dose: 20 mg Fenofibrate (Tricor) 145 mg PO DAILY [facility] Last Admin: 04/28/18 09:45 Dose: 145 mg Gabapentin (Neurontin) 600 mg PO BID [facility] Last Admin: 04/28/18 09:45 Dose: 600 mg Glucagon (Glucagon Inj) 1 mg OTHER PRN PRN PRN Reason: for Hypoglycemia Protocol Hydralazine HCl (Apresoline) 10 mg PO TID PRN PRN Reason: SBP> OR = 180, DBP> OR = 100 Sodium Chloride (Ns Inj) 1,000 mls @ 100 mls/hr IV.CONT .Q10H [facility] Last Admin: 04/28/18 13:44 Dose: Not Given Levetiracetam (Keppra 1000 Mg/100 Ml Premix) 100 mls @ 400 mls/hr IV.SIG Q12H [facility] Last Infusion: 04/28/18 11:15 Dose: Infused Ibuprofen (Motrin) 600 mg PO Q8H PRN PRN Reason: PAIN 1-10 AND/OR FEVER >101F Insulin Aspart (Novolog Insulin [place]al Sugar Inj) 0 unit SQ ACHS [facility]; Protocol Last Admin: 04/28/18 13:44 Dose: Not Given Lactulose (Lactulose Liq) 30 ml PO DAILY PRN PRN Reason: SEVERE CONSITIPATION Lisinopril (Prinivil) 20 mg PO DAILY [facility] Last Admin: 04/28/18 09:45 Dose: 20 mg Lorazepam (Ativan Inj) 2 mg IV.PUSH Q6H [facility] Last Admin: 04/28/18 10:33 Dose: 2 mg Nystatin (Mycostatin Powder) 1 applicatio TOPICAL BID [facility] Last Admin: 04/28/18 10:31 Dose: Not Given Ondansetron HCl (Zofran Inj) 4 mg IV.PUSH Q6H PRN PRN Reason: NAUSEA OR VOMITING Patch Removal (Remove Old Patch) 1 each T-DERMAL Q7D [facility] Patch Removal (Remove Old Patch) 1 each T-DERMAL Q7D [facility] Last Admin: 04/25/18 17:07 Dose: 1 each Senna/Docusate Sodium (Aleah-Colace) 1 tab PO BID [facility] Last Admin: 04/28/18 09:45 Dose: 1 tab Sennosides (Senokot) 17.2 mg PO Q12H PRN PRN Reason: Moderate Constipation Sodium Chloride (Ns Flush) 2 ml IV.FLUSH BID [facility] Last Admin: 04/28/18 09:45 Dose: 2 ml Sodium Chloride (Ns Flush) 2 ml IV.FLUSH PRN PRN PRN Reason: FLUSH AFTER USING IV ACCESS Last Admin: 04/27/18 22:06 Dose: 2 ml Thiamine HCl (Thiamine Inj) 100 mg IM DAILY [facility] Last Admin: 04/28/18 09:45 Dose: 100 mg Allergies/Adverse Reactions: Allergies Allergy/AdvReac Type Severity Reaction Status Date / Time iodine Allergy Swelling Verified 04/19/18 15:50 Review of Systems All other systems reviewed negative except as stated in HPI Physical Exam Vital signs: Vital Signs 04/27/18 14:00 04/27/18 15:44 04/27/18 20:00 Pulse Rate 59 L Respiratory Rate 20 Blood Pressure 203/91 H Pulse Oximetry 94 L 04/28/18 07:08 04/28/18 10:38 04/28/18 13:42 Pulse Rate 58 L Respiratory Rate Blood Pressure 200/80 H 211/86 H 216/95 H Pulse Oximetry 92 L Intake & Output 04/27/18 04/28/18 04/28/18 18:59 06:59 18:59 Intake Total 620 / 620 460 / 460 130 / 130 Balance 620 / 620 460 / 460 130 / 130 Intake: IV 100 / 100 100 / 100 100 / 100 Keppra 1000 mg/100 mL Premix 100 / 100 100 / 100 100 / 100 100 ML @ 400 mls/hr IV.SIG Q12H [facility] Rx#:[id number] Oral 520 / 520 360 / 360 30 / 30 Other: # Voids 2 4 Date of Last Bowel Movement 04/27/18 04/27/18 Narrative: More alert awake oriented x2 not to exact date, follows, no gaze deviation, neck supple, allen to gravity except rt leg amputation, planterflexor, no clonus, withdraws to pin - Constitutional no acute distress - Routine HEENT Exam Head: Present: normocephalic Eye: Present: EOMI Objective Laboratory Results - last 24 hr 04/27/18 04/27/18 04/28/18 16:38 23:39 07:33 Sodium 147 H Potassium 3.3 L Chloride 114 H Carbon Dioxide 27.5 Anion Gap 6 BUN 16 Creatinine 0.75 Estimated GFR 77 L POC Glucose 90 128 H Random Glucose 115 H Calcium 7.8 L Ammonia 04/28/18 04/28/18 07:33 07:46 Sodium Potassium Chloride Carbon Dioxide Anion Gap BUN Creatinine Estimated GFR POC Glucose 136 H Random Glucose Calcium Ammonia 40 H Review/Management - Diagnosis (1) Encephalopathy Code(s): G93.40 - Encephalopathy, unspecified Status: Acute Current Visit: Yes (2) HTN (hypertension) Code(s): I10 - Essential (primary) hypertension Status: Acute Current Visit : No (3) Anxiety Code(s): F41.9 - Anxiety disorder, unspecified Status: Acute Current Visit: No - Review/Management Daily Summary: 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 may have element of PRES recs check csf studies bp control More alert today Thiamine supplementation follow exam
[2018-04-29] MEDS: Gabapentin 300 MG Capsule PO SCH ×2 (08:10→21:06)
[2018-04-29] MEDS: Senna/Docusate Sodium 8.6/50 MG Tablet PO SCH ×2 (08:10→21:06)
[2018-04-29] MEDS: Enoxaparin Inj 40 MG/0.4 ML Syringe SQ SCH (08:10)
[2018-04-29] MEDS: Nystatin 100,000 UNITS/GM Powder 15 GM Bottle TOPICAL SCH ×2 (08:10→21:05)
[2018-04-29] MEDS: Fenofibrate 145 MG Tablet PO SCH (08:10)
[2018-04-29] MEDS: Lisinopril 10 MG Tablet PO SCH (08:11)
[2018-04-29] MEDS: Insulin NovoLOG Aspart Correctional Sugar Inj SQ SCH ×4 (08:11→21:26)
[2018-04-29] MEDS: Sod Chloride 0.9% Inj 1,000 ML IV.CONT SCH (08:12)
[2018-04-29] MEDS: levETIRAcetam 1000mg/100mL Inj 100 ML IV.SIG SCH ×2 (09:46→22:31)
--- NOTE | 2018-04-29 10:03 | P.PNFP ---
Subjective Interval history: 68 yo female with dementia, depression/anxiety, clavicle Fx on 04/18, HTN, DM now admitted to med/psych for acute catatonia. Medicine service consulted for management of HTN/DM and continuity of care. No events overnight per nursing. This morning her mental status is improved (had received Ativan shortly prior to MD evaluation). She was able to have a more normal conversation and communicate that she is not in pain, hasn't been eating much, is not struggling to breathe, and she knows [facility] is tomorrow. <Jordan Schrader S - 04/29/18 10:03> Results - Labs Result diagrams: 04/26/18 06:17 04/29/18 08:43 <Roxanna Magana - 04/29/18 12:19> Abnormal lab results 04/26/18 04/28/18 04/29/18 Range/Units 06:17 22:40 01:20 Potassium (3.5-5.1) meq/L Chloride (98-107) meq/L POC Glucose 141 H 136 H (68-110) mg/dl Random Glucose (74-106) mg/dL Calcium (8.5-10.1) mg/dL LATONYA Titer 1:40 H (Neg) LATONYA Pattern Diffuse H (None) 04/29/18 04/29/18 Range/Units 05:58 08:43 Potassium 3.1 L (3.5-5.1) meq/L Chloride 109 H (98-107) meq/L POC Glucose 121 H (68-110) mg/dl Random Glucose 114 H (74-106) mg/dL Calcium 8.0 L (8.5-10.1) mg/dL LATONYA Titer (Neg) LATONYA Pattern (None) [facility] 04/29/18 08:43 Sodium 143 Potassium 3.1 L Chloride 109 H Carbon Dioxide 25.7 BUN 13 Creatinine 0.63 Calcium 8.0 L <Roxanna Magana - 04/29/18 12:19> Abnormal lab results 04/28/18 04/29/18 04/29/18 Range/Units 22:40 01:20 05:58 POC Glucose 141 H 136 H 121 H (68-110) mg/dl <Jordan Schrader S - 04/29/18 10:03> Physical Exam Vital signs: Vital Signs 04/28/18 13:42 04/28/18 14:34 04/28/18 15:55 Temperature Pulse Rate Respiratory Rate 20 Blood Pressure 216/95 H 179/81 H Pulse Oximetry 92 L 04/28/18 17:12 04/28/18 20:00 04/29/18 00:00 Temperature 98.2 F 98.2 F Pulse Rate 67 81 Respiratory Rate 20 20 Blood Pressure 179/81 H 169/84 H 182/71 H Pulse Oximetry 92 L 93 L 93 L 04/29/18 04:00 04/29/18 06:00 Temperature 98.8 F Pulse Rate 83 55 L Respiratory Rate 18 15 Blood Pressure 172/81 H 172/81 H Pulse Oximetry 93 L Intake & Output 04/28/18 04/29/18 04/29/18 18:59 06:59 18:59 Intake Total 250 / 250 440 / 440 1100 / 1100 Balance 250 / 250 440 / 440 1100 / 1100 Weight 59.8 kg Intake: IV 100 / 100 100 / 100 1100 / 1100 NS Inj 1,000 ML @ 100 mls/hr IV 1000 / 1000 .CONT .Q10H [facility] Rx#:[id number] Keppra 1000 mg/100 mL Premix 100 / 100 100 / 100 100 / 100 100 ML @ 400 mls/hr IV.SIG Q12H [facility] Rx#:[id number] Oral 150 / 150 240 / 240 0 / 0 Oral Supplement 100 / 100 Other: # Urine Diapers 3 7 Date of Last Bowel Movement 04/28/18 04/28/18 # Bowel Movements 2 <Roxanna Magana M - 04/29/18 12:19> Vital Signs 04/28/18 10:38 04/28/18 13:42 04/28/18 14:34 Temperature Pulse Rate 58 L Respiratory Rate 20 Blood Pressure 211/86 H 216/95 H Pulse Oximetry 92 L 04/28/18 15:55 04/28/18 17:12 04/28/18 20:00 Temperature 98.2 F 98.2 F Pulse Rate 67 81 Respiratory Rate 20 20 Blood Pressure 179/81 H 179/81 H 169/84 H Pulse Oximetry 92 L 92 L 93 L 04/29/18 00:00 04/29/18 04:00 04/29/18 06:00 Temperature 98.8 F Pulse Rate 83 55 L Respiratory Rate 18 15 Blood Pressure 182/71 H 172/81 H 172/81 H Pulse Oximetry 93 L 93 L Intake & Output 04/28/18 04/29/18 04/29/18 18:59 06:59 18:59 Intake Total 250 / 250 440 / 440 1000 / 1000 Balance 250 / 250 440 / 440 1000 / 1000 Weight 59.8 kg Intake: IV 100 / 100 100 / 100 1000 / 1000 NS Inj 1,000 ML @ 100 mls/hr IV 1000 / 1000 .CONT .Q10H [facility] Rx#:[id number] Keppra 1000 mg/100 mL Premix 100 / 100 100 / 100 100 ML @ 400 mls/hr IV.SIG Q12H [facility] Rx#:[id number] Oral 150 / 150 240 / 240 0 / 0 Oral Supplement 100 / 100 Other: # Urine Diapers 3 7 Date of Last Bowel Movement 04/28/18 04/28/18 # Bowel Movements 2 <Torres R3,Jordan S - 04/29/18 10:03> - Constitutional no acute distress, average body habitus, cooperative <Torres R3,Jordan S - 10:03> - Routine HEENT Exam ENT: Present: mucous membranes moist <Torres R3,Jordan S - 04/29/18 10:03> - Routine Respiratory Exam Present: CTA bilaterally. Absent: accessory muscle use, wheezes, crackles < Torres R3,Jordan S - 04/29/18 10:03> - Routine Cardiovascular Exam Present: RRR, S1, S2. Absent: murmur <Torres R3,Jordan S - 04/29/18 10:03> - Routine Abdominal Exam Present: soft. Absent: tenderness <Torres R3,Jordan S - 04/29/18 10:03> - Routine Extremities Exam Absent: cyanosis, edema <Torres R3,Jordan S - 04/29/18 10:03> Comments: s/p right above the knee amputation <Torres R3,Jordan S - 04/29/18 10:03> - Routine Skin Exam Present: intact <Torres R3,Jordan S - 04/29/18 10:03> - Routine Neurological Exam Present: alert, moving all extremities (BUE neurovascularly intact), normal tone , hearing grossly intact. Absent: normal speech (slow speech with paucity, voice quality normal, no slurring) <Jordna Schrader - 04/29/18 10:03> - Detailed Neurological Exam: Coma Scale Eye Opening: Spontaneous <Jordan Schrader - 04/29/18 10:03> Verbal Response: Oriented <Jordan Schrader - 04/29/18 10:03> Motor Response: Obey commands <Jordan Schrader 04/29/18 10:03> [place] Coma Scale Total: 15 <Jordan Schrader 04/29/18 10:03> - Routine Psychiatric Exam Present: cooperative. Absent: normal affect (flattened) <Jordan Schrader 04/29/18 10:03> Assessment and Plan - Assessment (1) Catatonia Code(s): F06.1 - Catatonic disorder due to known physiological condition Status: Acute (2) Seizures Code(s): R56.9 - Unspecified convulsions Status: Chronic (3) HTN (hypertension) Code(s): I10 - Essential (primary) hypertension Status: Acute (4) Clavicle fracture Code(s): S42.009A - Fracture of unspecified part of unspecified clavicle, initial encounter for closed fracture Status: Acute (5) Type 2 diabetes mellitus Code(s): E11.9 - Type 2 diabetes mellitus without complications Status: Chronic <Roxanna Magana 04/29/18 12:19> (1) Catatonia Code(s): F06.1 - Catatonic disorder due to known physiological condition Status: Acute (2) Seizures Code(s): R56.9 - Unspecified convulsions Status: Chronic (3) HTN (hypertension) Code(s): I10 - Essential (primary) hypertension Status: Acute (4) Clavicle fracture Code(s): S42.009A - Fracture of unspecified part of unspecified clavicle, initial encounter for closed fracture Status: Acute (5) Type 2 diabetes mellitus Code(s): E11.9 - Type 2 diabetes mellitus without complications Status: Chronic <Jordan Schrader 04/29/18 09:50> - Assessment and Plan 68 yo female with dementia, HTN, DM presents with: Catatonia Medical work-up has been negative so most likely at this point it is related to psychiatric disorder. Improves with Ativan however effect only lasts for about 30 min per nursing and MD observations. No dysautonomia except for the elevated BP. CBC and CK within normal limits; no signs of NMS ABG essentially normal Ammonia very slightly elevated, unlikely to be etiology of her mental status LATONYA screen positive, titer pending RF negative RPR negative ESR normal -Continue Lexapro and Seroquel -Per psychiatrist recommendation continue Ativan 2 mg IV Q6H (mental status improves with Ativan); hold for sedation or bradycardia or apnea -Given her response to Ativan is positive but short-lived may benefit from ECT. Defer to psychiatrist recommendations. In the distant past, greater than 5 years ago, a pt of mine who was catatonic received ECT here at [facility] but it is not done regularly. Can see if there may be a way to transfer her to a hospital that performs this procedure regularly as she would almost certainly get better faster than meds alone -Manage hypertension as noted below Seizure Disorder Now with possible repeat seizure a some days ago EEG with nonspecific encephalopathy Keppra level was low MRI/MRA unremarkable -Consulted neurology, appreciate assistance -Continue Keppra to 1000 mg IV BID -Recommended lumbar puncture, scheduled for Sunday (needs lovenox held for 24 hours, IR not working Alexy) -Treat catatonia as above Clavicle Fracture, right Stable, neurovascularly intact Consulted orthotech for sling placement for comfort Pain control with PO Tylenol and [place] PRN Hypertension BP still intermittently elevated, improved from yesterday, likely related to catatonia Continue Catapres patch to 0.2 mg Continue lisinopril 20 mg daily Continue hydralazine 10 mg PO TID Additional hydralazine 10 mg PO TID PRN BP > 180/100 Vasotec IV PRN Q6H for BP > 200/100 per her nurse, she takes her meds better so can consider a diuretic and other po meds if BP elevates to severe ranges Diabetes mellitus BG at hospital goal now Check sugar AC/HS Continue metformin 1000 mg daily unless receiving IV contrast or some other contraindication noted Fluids: IV NS at 100 CC/HR Diet: Pureed as tolerated, Ensure shakes/pudding ad aisha for caloric support DVT: Lovenox 40 mg SQ daily, to be held after tomorrow's dose for LP Sunday Continue PT to do ROM. Per staff, she is moving more than before Medicine service to follow, thank you for allowing us to continue being part of Mrs. Pedroza's care <Jordan Schrader S - 04/29/18 10:03> - Attending Attestation The exam, history, and the medical decision-making described in the above note were completed with the assistance of the resident physician. I reviewed and agree with the findings presented. I attest that I had a [id number] encounter with the patient on the same day, and personally performed and documented my assessment and findings in the medical record. Spoke to Psychiatric case management as this patient would benefit from ECT. She definitely had and has the hallmarks of catatonia. She responds only very briefly to ativan and becomes alert for half an hour or so but then slips right back into her catatonic state. She has not had significant improvement since admission. It is concerning as she is not eating enough. Her pureed lunch is barely touched. It is difficult to even get her to take her meds. With the very slow improvement, there is a danger of malnutrition and weakness and even possibly contractures even with good care. A PEG tube would not be warranted as she will eventually recover. With her Hdez act it is evidently a more complicated process to transfer a pt and get ECT but hopefully this process can be started. Reportedly a personal trainer needs to be applied to and approve this process, etc. Case management, Elvira discussed this with me and will see what can be done to expedite this process. <Roxanna Magana - 04/29/18 12:19> <Jordan Schrader S - Last Filed: 04/29/18 09:50> (3) HTN (hypertension) Qualifiers: Hypertension type: other secondary hypertension Qualified Code(s): I15.8 - Other secondary hypertension (4) Clavicle fracture Qualifiers: Encounter type: subsequent encounter Fracture type: closed Laterality: right (5) Type 2 diabetes mellitus Qualifiers: Diabetes mellitus buttermaker continuous churn insulin use: without buttermaker continuous churn use Diabetes mellitus complication status: without complication Qualified Code(s): E11.9 - Type 2 diabetes mellitus without complications <Roxanna Magana M - Last Filed: 04/29/18 12:19> (3) HTN (hypertension) Qualifiers: Hypertension type: other secondary hypertension Qualified Code(s): I15.8 - Other secondary hypertension (4) Clavicle fracture Qualifiers: Encounter type: subsequent encounter Fracture type: closed Laterality: right (5) Type 2 diabetes mellitus Qualifiers: Diabetes mellitus buttermaker continuous churn insulin use: without penitentiary use Diabetes mellitus complication status: without complication Qualified Code(s): E11.9 - Type 2 diabetes mellitus without complications <Brian TysonJordan S - Last Filed: 04/29/18 09:50> (3) HTN (hypertension) Qualifiers: Hypertension type: other secondary hypertension Qualified Code(s): I15.8 - Other secondary hypertension (4) Clavicle fracture Qualifiers: Encounter type: subsequent encounter Fracture type: closed Laterality: right (5) Type 2 diabetes mellitus Qualifiers: Diabetes mellitus penitentiary insulin use: without penitentiary use Diabetes mellitus complication status: without complication Qualified Code(s): E11.9 - Type 2 diabetes mellitus without complications <Roxanna Magana M - Last Filed: 04/29/18 12:19> (3) HTN (hypertension) Qualifiers: Hypertension type: other secondary hypertension Qualified Code(s): I15.8 - Other secondary hypertension (4) Clavicle fracture Qualifiers: Encounter type: subsequent encounter Fracture type: closed Laterality: right (5) Type 2 diabetes mellitus Qualifiers: Diabetes mellitus buttermaker continuous churn insulin use: without penitentiary use Diabetes mellitus complication status: without complication Qualified Code(s): E11.9 - Type 2 diabetes mellitus without complications
[2018-04-29 10:16] LABS: Anion Gap 8 meq/L (5-15); Blood Urea Nitrogen 13 mg/dL (7-18); Carbon Dioxide 25.7 meq/L (21.0-32.0); Chloride 109 meq/L (98-107); Glomerular Filtration Rate Greater Than 89 mL/min (>89); Glucose,Random 114 mg/dL (74-106); Potassium 3.1 meq/L (3.5-5.1); Sodium 143 meq/L (136-145)
[2018-04-29 10:33] LABS: Anti-Nuclear Antibody Titer 1:40 (Neg)
--- NOTE | 2018-04-29 10:37 | P.PNPSY ---
Subjective Chief Complaint: Catatoniadepressed Remarks: April 29, 2018 Subjective: Today the patient is alert and able to answer my questions. Her case was reviewed with the nursing staff and weekend progress notes and consultations were noted. Patient continues to receive intravenous Keppra. There is just that he has of a smile. She did not or does not remember seeing her daughter over the weekend. There have been no convulsions. There is decreased strength in her hand electrophysiologist. Is able to recognize my touching her left toe and on my request pointed downwards. Facial muscles are more tolerant without the slack appearance noted when she was catatonic. Mental Status Examination Appearance: Appropriate Consciousness: Alert Orientation: Person, Place, Situation (PT to attempt out of bed as tolerated.) Motor Activity: Other (Patient in bed and not cooperative with efforts to demonstrate motor activity) Speech: Unremarkable Language: Adequate Fund of Knowledge: Adequate Attention and Concentration: Adequate Memory: Impaired (Complains of short-term loss) Mood: Sad Affect: Flat (Improving; less flatness) Thought Process & Associations: Other (Untestable at this time thought to be intact) Thought Content: Appropriate Hallucination Type: None Delusion Type: None Suicidal Ideation: No Suicidal Plan: No Suicidal Intention: No Homicidal Ideation: No Homicidal Plan: No Homicidal Intention: No Insight: Poor Judgment: Poor Assessment and Plan - Assessment (1) Delirium due to another medical condition Code(s): F05 - Delirium due to known physiological condition Status: Acute (2) Catatonia Code(s): F06.1 - Catatonic disorder due to known physiological condition Status: Acute - Plan Plan: Continue current treatment plan Justification for Continued Inpatient Stay: Patient would decompensate in less structured environment. Patient continues on IV Keppra.
[2018-04-29] MEDS ORDERED: Potassium Chloride Inj 40 MEQ in Sod Chloride 0.9% Inj 1,000 ML IV.CONT SCH (11:12)
--- NOTE | 2018-04-29 12:11 | P.PNNEU ---
Subjective Subjective Comments: no acute events. no aiken, no cp, no dyspnea Active Medications: Active Medications Acetaminophen (Tylenol) 500 mg PO QID [facility] Last Admin: 04/25/18 10:46 Dose: Not Given Hydrocodone Bitart/Acetaminophen ([place] 5/325) 1 tab PO Q6H PRN PRN Reason: BREAKTHROUGH PAIN Last Admin: 04/28/18 18:00 Dose: 1 tab Al Hydrox/Mg Hydrox/Simethicone (Mag-Al Plus Susp Liq) 30 ml PO Q6H PRN PRN Reason: DYSPEPSIA Al Hydroxide/Mg Hydroxide (Milk Of Magnesia Liq) 30 ml PO Q24H PRN PRN Reason: CONSTIPATION Al Hydroxide/Mg Hydroxide (Milk Of Magnesia Liq) 30 ml PO Q12H PRN PRN Reason: Mild Constipation Atorvastatin Calcium (Lipitor) 40 mg PO HS [facility] Last Admin: 04/28/18 20:32 Dose: 40 mg Bisacodyl (Dulcolax Supp) 10 mg RECTAL DAILY PRN PRN Reason: SEVERE CONSITIPATION Clonidine HCl (Catapress-Tts 0.2 Mg Patch.7d) 1 patch T-DERMAL Q7D [facility] Last Admin: 04/25/18 17:07 Dose: 1 patch Dextrose (D50w Vial) 50 ml IV.PUSH UNSCH PRN PRN Reason: PER HYPOGLYCEMIA PROTOCOL Enalaprilat (Vasotec Inj) 2.5 mg IV.PUSH Q6H PRN PRN Reason: SBP>200, DBP>100 Last Admin: 04/28/18 05:43 Dose: 2.5 mg Enoxaparin Sodium (Lovenox Inj) 40 mg SQ Q24H [facility] Last Admin: 04/29/18 08:10 Dose: 40 mg Escitalopram Oxalate (Lexapro) 20 mg PO DAILY [facility] Last Admin: 04/29/18 08:10 Dose: 20 mg Fenofibrate (Tricor) 145 mg PO DAILY [facility] Last Admin: 04/29/18 08:10 Dose: 145 mg Gabapentin (Neurontin) 600 mg PO BID [facility] Last Admin: 04/29/18 08:10 Dose: 600 mg Glucagon (Glucagon Inj) 1 mg OTHER PRN PRN PRN Reason: for Hypoglycemia Protocol Hydralazine HCl (Apresoline) 10 mg PO TID PRN PRN Reason: SBP> OR = 180, DBP> OR = 100 Levetiracetam (Keppra 1000 Mg/100 Ml Premix) 100 mls @ 400 mls/hr IV.SIG Q12H [facility] Last Infusion: 04/29/18 10:35 Dose: Infused Potassium Chloride/Sodium Chloride (Ns + Kcl 40 Meq Inj) 1,000 mls @ 100 mls/ hr IV.CONT .Q10H [facility] Ibuprofen (Motrin) 600 mg PO Q8H PRN PRN Reason: PAIN 1-10 AND/OR FEVER >101F Last Admin: 04/28/18 15:40 Dose: 600 mg Insulin Aspart (Novolog Insulin Correctional Sugar Inj) 0 unit SQ ACHS [facility]; Protocol Last Admin: 04/29/18 11:09 Dose: Not Given Lactulose (Lactulose Liq) 30 ml PO DAILY PRN PRN Reason: SEVERE CONSITIPATION Lisinopril (Prinivil) 20 mg PO DAILY [facility] Last Admin: 04/29/18 08:11 Dose: 20 mg Lorazepam (Ativan Inj) 2 mg IV.PUSH Q6H [facility] Last Admin: 04/29/18 10:53 Dose: 2 mg Nystatin (Mycostatin Powder) 1 applicatio TOPICAL BID [facility] Last Admin: 04/29/18 08:10 Dose: 1 applicatio Ondansetron HCl (Zofran Inj) 4 mg IV.PUSH Q6H PRN PRN Reason: NAUSEA OR VOMITING Patch Removal (Remove Old Patch) 1 each T-DERMAL Q7D [facility] Patch Removal (Remove Old Patch) 1 each T-DERMAL Q7D [facility] Last Admin: 04/25/18 17:07 Dose: 1 each Senna/Docusate Sodium (Aleah-Colace) 1 tab PO BID [facility] Last Admin: 04/29/18 08:10 Dose: 1 tab Sennosides (Senokot) 17.2 mg PO Q12H PRN PRN Reason: Moderate Constipation Sodium Chloride (Ns Flush) 2 ml IV.FLUSH BID [facility] Last Admin: 04/29/18 08:11 Dose: Not Given Sodium Chloride (Ns Flush) 2 ml IV.FLUSH PRN PRN PRN Reason: FLUSH AFTER USING IV ACCESS Last Admin: 04/27/18 22:06 Dose: 2 ml Thiamine HCl (Thiamine Inj) 100 mg IM DAILY [facility] Last Admin: 12/24/18 08:11 Dose: 100 mg Allergies/Adverse Reactions: Allergies Allergy/AdvReac Type Severity Reaction Status Date / Time iodine Allergy Swelling Verified 04/19/18 15:50 Review of Systems All other systems reviewed negative except as stated in HPI Physical Exam Vital signs: Vital Signs 04/28/18 13:42 04/28/18 14:34 04/28/18 15:55 Temperature Pulse Rate Respiratory Rate 20 Blood Pressure 216/95 H 179/81 H Pulse Oximetry 92 L 04/28/18 17:12 04/28/18 20:00 04/29/18 00:00 Temperature 98.2 F 98.2 F Pulse Rate 67 81 Respiratory Rate 20 20 Blood Pressure 179/81 H 169/84 H 182/71 H Pulse Oximetry 92 L 93 L 93 L 04/29/18 04:00 04/29/18 06:00 Temperature 98.8 F Pulse Rate 83 55 L Respiratory Rate 18 15 Blood Pressure 172/81 H 172/81 H Pulse Oximetry 93 L Intake & Output 04/28/18 04/29/18 04/29/18 18:59 06:59 18:59 Intake Total 250 / 250 440 / 440 1100 / 1100 Balance 250 / 250 440 / 440 1100 / 1100 Weight 59.8 kg Intake: IV 100 / 100 100 / 100 1100 / 1100 NS Inj 1,000 ML @ 100 mls/hr IV 1000 / 1000 .CONT .Q10H [facility] Rx#:[id number] Keppra 1000 mg/100 mL Premix 100 / 100 100 / 100 100 / 100 100 ML @ 400 mls/hr IV.SIG Q12H [facility] Rx#:[id number] Oral 150 / 150 240 / 240 0 / 0 Oral Supplement 100 / 100 Other: # Urine Diapers 3 7 Date of Last Bowel Movement 04/28/18 04/28/18 # Bowel Movements 2 Narrative: alert awake oriented x2 not to exact date, follows, no gaze deviation, neck supple, allen to gravity except rt leg amputation, planterflexor, no clonus, withdraws to pin - Constitutional no acute distress - Routine HEENT Exam Head: Present: normocephalic Eye: Present: EOMI Objective Laboratory Results - last 24 hr 04/26/18 04/28/18 04/28/18 06:17 17:13 22:40 Sodium Potassium Chloride Carbon Dioxide Anion Gap BUN Creatinine Estimated GFR POC Glucose 107 141 H Random Glucose Calcium LATONYA Titer 1:40 H LATONYA Pattern Diffuse H LATONYA Interpretation 04/29/18 04/29/18 04/29/18 01:20 05:58 08:43 Sodium 143 Potassium 3.1 L Chloride 109 H Carbon Dioxide 25.7 Anion Gap 8 BUN 13 Creatinine 0.63 Estimated GFR Greater than 89 POC Glucose 136 H 121 H Random Glucose 114 H Calcium 8.0 L LATONYA Titer LATONYA Pattern LATONYA Interpretation 04/29/18 11:06 Sodium Potassium Chloride Carbon Dioxide Anion Gap BUN Creatinine Estimated GFR POC Glucose 107 Random Glucose Calcium LATONYA Titer LATONYA Pattern LATONYA Interpretation Review/Management - Diagnosis (1) Encephalopathy Code(s): G93.40 - Encephalopathy, unspecified Status: Acute Current Visit: Yes (2) HTN (hypertension) Code(s): I10 - Essential (primary) hypertension Status: Acute Current Visit : No (3) Anxiety Code(s): F41.9 - Anxiety disorder, unspecified Status: Acute Current Visit: No - Review/Management Plan: imp fu eeg mri and labs fu abg nh3 nl neuro will fu on iv keppra 1000 bid Daily Summary: 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 may have element of PRES recs alert x 2 days check csf studies-pending bp control Thiamine supplementation follow exam (2) HTN (hypertension) Qualifiers: Hypertension type: other secondary hypertension Qualified Code(s): I15.8 - Other secondary hypertension
[2018-04-29] MEDS ORDERED: hydrALAZINE 10 MG Tablet PO SCH (18:00)
[2018-04-29] MEDS ORDERED: Loperamide 2 MG Capsule PO PRN (18:45)
[2018-04-30] MEDS ORDERED: hydroCHLOROthiazide 25 MG Tablet PO ONE (06:31)
--- NOTE | 2018-04-30 06:52 | P.PNFP ---
Subjective Interval history: 68 yo female with dementia, depression/anxiety, clavicle Fx on 04/18, HTN, DM now admitted to med/psych for acute catatonia. Medicine service consulted for management of HTN/DM and continuity of care. The covering overnight medical team was paged due to elevated blood pressures in the 240's systolic and 100's diastolic - all BPs were measured manually. She was given prn hydralazine and HCTZ but her blood pressures remained elevated. During the morning visit, patient denied headaches, chest pain, blurry vision, or any symptoms. She did not verbalize answers to questions, she only nodded. Nurse at bedside states that she looks a whole lot better in terms of catatonia. <Eko R3,Janel U - 04/30/18 08:46> Results - Labs Result diagrams: 04/26/18 06:17 04/30/18 08:16 <Roxanna Magana M - 04/30/18 13:58> Abnormal lab results 04/30/18 Range/Units 08:35 POC Glucose 131 H (68-110) mg/dl [facility] 04/30/18 08:16 Potassium 3.9 D <Roxanna Magana M - 04/30/18 13:58> Abnormal lab results 04/26/18 04/29/18 Range/Units 06:17 08:43 Potassium 3.1 L (3.5-5.1) meq/L Chloride 109 H (98-107) meq/L Random Glucose 114 H (74-106) mg/dL Calcium 8.0 L (8.5-10.1) mg/dL LATONYA Titer 1:40 H (Neg) LATONYA Pattern Diffuse H (None) [facility] 04/29/18 08:43 Sodium 143 Potassium 3.1 L Chloride 109 H Carbon Dioxide 25.7 BUN 13 Creatinine 0.63 Calcium 8.0 L <Eko R3,Janel U - 04/30/18 06:52> Physical Exam Vital signs: Vital Signs 04/29/18 17:34 04/30/18 00:17 04/30/18 04:00 Temperature 98.1 F 96.4 F L 97.3 F L Pulse Rate 74 72 70 Respiratory Rate 19 19 16 Blood Pressure 236/102 H 194/90 H 246/115 H Pulse Oximetry 93 L 92 L 04/30/18 04:16 04/30/18 05:16 04/30/18 06:00 Temperature Pulse Rate Respiratory Rate Blood Pressure 246/115 H 245/107 H 242/100 H Pulse Oximetry 04/30/18 06:15 Temperature Pulse Rate Respiratory Rate Blood Pressure 240/90 H Pulse Oximetry Intake & Output 04/29/18 04/30/18 04/30/18 18:59 06:59 18:59 Intake Total 1430 / 1430 1130 / 1130 1120 / 1120 Balance 1430 / 1430 1130 / 1130 1120 / 1120 Intake: IV 1400 / 1400 1100 / 1100 1000 / 1000 NS + KCl 40 mEq Inj 1,000 ML @ 1000 / 1000 1000 / 1000 100 mls/hr IV.CONT .Q10H YUKO Rx #:[id number] NS Inj 1,000 ML @ 100 mls/hr IV 1300 / 1300 .CONT .Q10H YUKO Rx#:[id number] Keppra 1000 mg/100 mL Premix 100 / 100 100 / 100 100 ML @ 400 mls/hr IV.SIG Q12H YUKO Rx#:[id number] Oral 30 / 30 30 / 30 120 / 120 Other: # Voids 4 # Urine Diapers 5 Date of Last Bowel Movement 04/28/18 # Bowel Movements 1 <Roxanna Magana M - 04/30/18 13:58> Vital Signs 04/29/18 17:34 04/30/18 00:17 04/30/18 04:00 Temperature 98.1 F 96.4 F L 97.3 F L Pulse Rate 74 72 70 Respiratory Rate 19 19 16 Blood Pressure 236/102 H 194/90 H 246/115 H Pulse Oximetry 93 L 92 L 04/30/18 04:16 04/30/18 05:16 04/30/18 06:00 Temperature Pulse Rate Respiratory Rate Blood Pressure 246/115 H 245/107 H 242/100 H Pulse Oximetry 04/30/18 06:15 Temperature Pulse Rate Respiratory Rate Blood Pressure 240/90 H Pulse Oximetry Intake & Output 04/29/18 04/29/18 04/30/18 06:59 18:59 06:59 Intake Total 440 / 440 1430 / 1430 1130 / 1130 Balance 440 / 440 1430 / 1430 1130 / 1130 Weight 59.8 kg Intake: IV 100 / 100 1400 / 1400 1100 / 1100 NS + KCl 40 mEq Inj 1,000 ML @ 1000 / 1000 100 mls/hr IV.CONT .Q10H YUKO Rx #:[id number] NS Inj 1,000 ML @ 100 mls/hr IV 1300 / 1300 .CONT .Q10H YUKO Rx#:[id number] Keppra 1000 mg/100 mL Premix 100 / 100 100 / 100 100 / 100 100 ML @ 400 mls/hr IV.SIG Q12H YUKO Rx#:[id number] Oral 240 / 240 30 / 30 30 / 30 Oral Supplement 100 / 100 Other: # Voids 4 # Urine Diapers 7 5 Date of Last Bowel Movement 04/28/18 04/28/18 # Bowel Movements 1 <Eko R3,Janel U - 04/30/18 06:52> Narrative: - Constitutional no acute distress, average body habitus, cooperative - Routine HEENT Exam ENT: Present: mucous membranes moist - Routine Respiratory Exam Present: CTA bilaterally. Absent: accessory muscle use, wheezes, crackles - Routine Cardiovascular Exam Present: RRR, S1, S2. Absent: murmur - Routine Abdominal Exam Present: soft. Absent: tenderness - Routine Extremities Exam Absent: cyanosis, edema Comments: s/p right above the knee amputation - Routine Skin Exam Present: intact - Routine Neurological Exam Present: alert, moving all extremities (BUE neurovascularly intact), normal tone , hearing grossly intact. - Routine Psychiatric Exam Present: cooperative. Absent: normal affect (flattened) <Eko R3,Janel U - 04/30/18 08:46> Assessment and Plan - Assessment (1) Catatonia Code(s): F06.1 - Catatonic disorder due to known physiological condition Status: Acute (2) Seizures Code(s): R56.9 - Unspecified convulsions Status: Chronic (3) HTN (hypertension) Code(s): I10 - Essential (primary) hypertension Status: Acute (4) Clavicle fracture Code(s): S42.009A - Fracture of unspecified part of unspecified clavicle, initial encounter for closed fracture Status: Acute (5) Type 2 diabetes mellitus Code(s): E11.9 - Type 2 diabetes mellitus without complications Status: Chronic <Roxanna Magana - 04/30/18 13:58> (1) Catatonia Code(s): F06.1 - Catatonic disorder due to known physiological condition Status: Acute (2) Seizures Code(s): R56.9 - Unspecified convulsions Status: Chronic (3) HTN (hypertension) Code(s): I10 - Essential (primary) hypertension Status: Acute (4) Clavicle fracture Code(s): S42.009A - Fracture of unspecified part of unspecified clavicle, initial encounter for closed fracture Status: Acute (5) Type 2 diabetes mellitus Code(s): E11.9 - Type 2 diabetes mellitus without complications Status: Chronic <Eko R3,Janel U - 04/30/18 11:17> - Assessment and Plan 68 yo female with dementia, HTN, DM presents with: Catatonia Medical work-up has been negative so most likely at this point it is related to psychiatric disorder. Improves with Ativan however effect only lasts for about 30 min per nursing and MD observations. No dysautonomia except for the elevated BP. CBC and CK within normal limits; no signs of NMS ABG essentially normal Ammonia very slightly elevated, unlikely to be etiology of her mental status LATONYA screen positive, titer 1:40 RF negative RPR negative ESR normal -Continue Lexapro and Seroquel -Per psychiatrist recommendation continue Ativan 2 mg IV Q6H (mental status improves with Ativan); hold for sedation or bradycardia or apnea -Given her response to Ativan is positive but short-lived may benefit from ECT. Defer to psychiatrist recommendations. -Manage hypertension as noted below Seizure Disorder Now with possible repeat seizure a some days ago EEG with nonspecific encephalopathy Keppra level was low MRI/MRA unremarkable -Neurology on board, appreciate assistance -Continue Keppra to 1000 mg IV BID -Lumbar puncture, scheduled for Sunday (needs lovenox held for 24 hours, IR not working [place]) -Treat catatonia as above Clavicle Fracture, right Stable, neurovascularly intact Consulted orthotech for sling placement for comfort Pain control with PO Tylenol and [place] PRN Hypertension BP very elevated this morning, likely related to catatonia Discontinue Catapres patch 0.2 mg Continue lisinopril 20 mg daily Continue hydralazine 25 mg PO TID Start HCTZ 25 mg PO daily Start Amlodipine 10 mg PO daily Additional hydralazine 10 mg PO TID PRN BP > 180/100 Vasotec IV PRN Q6H for BP > 200/100 Will transfer to the ICU for close monitoring and IV antihypertensives as needed * Patient needs to be discharged from the psych unit and then [place] [facility] [place] The Liam nurse was available on site and will assist with the pt's transfer and BP monitoring Diabetes mellitus BG at hospital goal now Check sugar AC/HS Continue metformin 1000 mg daily unless receiving IV contrast or some other contraindication noted Fluids: IV NS at 100 CC/HR Diet: Pureed as tolerated, Ensure shakes/pudding ad aisha for caloric support DVT: Lovenox 40 mg SQ daily, to be held after tomorrow's dose for LP Sunday Continue PT to do ROM. Per staff, she is moving more than before Medicine service to follow, thank you for allowing us to continue being part of Mrs. Pedroza's care <Janel Whitt [facility] 04/30/18 11:24> Discussed Condition With: Patient's nurse, Dr. Magana - attending <[facility] 04/30/[facility] 09:50> Discharge Planning: Pending clinical improvement <Janel Whitt [facility] 04/30/18 09:50> - Attending Attestation The exam, history, and the medical decision-making described in the above note were completed with the assistance of the resident physician. I reviewed and agree with the findings presented. I attest that I had a [id number] encounter with the patient on the same day, and personally performed and documented my assessment and findings in the medical record. See her history and physical. This lady was transferred out of the medical psych unit because of her high blood pressure and the difficulty in having close monitoring on that unit. <Roxanna Magana M - 04/30/18 13:58> [facility] - Last Filed: 04/30/18 11:17> (3) HTN (hypertension) Qualifiers: Hypertension type: other secondary hypertension Qualified Code(s): I15.8 - Other secondary hypertension (4) Clavicle fracture Qualifiers: Encounter type: subsequent encounter Fracture type: closed Laterality: right (5) Type 2 diabetes mellitus Qualifiers: Diabetes mellitus senior living insulin use: without senior living use Diabetes mellitus complication status: without complication Qualified Code(s): E11.9 - Type 2 diabetes mellitus without complications <ChinoAlbertoRoxanna - Last Filed: 04/30/18 13:58> (3) HTN (hypertension) Qualifiers: (4) Clavicle fracture Qualifiers: Encounter type: subsequent encounter Fracture type: closed Laterality: right (5) Type 2 diabetes mellitus Qualifiers: Diabetes mellitus exterminator termite insulin use: without senior living use Diabetes mellitus complication status: without complication Qualified Code(s): E11.9 - Type 2 diabetes mellitus without complications <[facility] - Last Filed: 04/30/18 11:17> (3) HTN (hypertension) Qualifiers: Hypertension type: other secondary hypertension Qualified Code(s): I15.8 - Other secondary hypertension (4) Clavicle fracture Qualifiers: Encounter type: subsequent encounter Fracture type: closed Laterality: right (5) Type 2 diabetes mellitus Qualifiers: Diabetes mellitus exterminator termite insulin use: without senior living use Diabetes mellitus complication status: without complication Qualified Code(s): E11.9 - Type 2 diabetes mellitus without complications <Chino,Roxanna - Last Filed: 04/30/18 13:58> (3) HTN (hypertension) Qualifiers: (4) Clavicle fracture Qualifiers: Encounter type: subsequent encounter Fracture type: closed Laterality: right (5) Type 2 diabetes mellitus Qualifiers: Diabetes mellitus exterminator termite insulin use: without exterminator termite use Diabetes mellitus complication status: without complication Qualified Code(s): E11.9 - Type 2 diabetes mellitus without complications
[2018-04-30] MEDS ORDERED: hydrALAZINE 10 MG Tablet PO PRN (07:49)
[2018-04-30] MEDS: Gabapentin 300 MG Capsule PO SCH (08:38)
[2018-04-30] MEDS: Lisinopril 10 MG Tablet PO SCH (08:38)
[2018-04-30] MEDS: Fenofibrate 145 MG Tablet PO SCH (08:38)
[2018-04-30] MEDS: Enoxaparin Inj 40 MG/0.4 ML Syringe SQ SCH (08:39)
[2018-04-30] MEDS ORDERED: hydrALAZINE 25 MG Tablet PO SCH ×2 (09:00)
[2018-04-30] MEDS: Insulin NovoLOG Aspart Correctional Sugar Inj SQ SCH (09:19)
[2018-04-30] MEDS: Nystatin 100,000 UNITS/GM Powder 15 GM Bottle TOPICAL SCH (09:30)
[2018-04-30] MEDS: levETIRAcetam 1000mg/100mL Inj 100 ML IV.SIG SCH (09:30)
[2018-04-30] MEDS: Senna/Docusate Sodium 8.6/50 MG Tablet PO SCH (09:30)
[2018-04-30] MEDS ORDERED: amLODIPine 10 MG Tablet PO SCH ×2 (10:15→12:30)
--- NOTE | 2018-04-30 10:52 | P.PNPSY ---
Subjective Chief Complaint: Catatoniadepressed Remarks: April 30 2018 10:30 AM Subjective: Patient had a very difficult night with blood pressures in the 240- 260 range with little response to medication given between 4 AM and 6 AM. Patient was seen twice first at 07:00 and again at 10 15 a.m. her last blood pressure was down to 194. Contacted hospitalist Dr. Saravia regarding the need for the patient being on a monitored bed. We are in agreement on transfer to monitored bed on medicine and the referral for ECT. Patient is alert and able to carry on some very limited conversation. Patient understands her situation some honk. I did ask to talk to her on this about the sadness she felt not being able to share the holiday season with her . This provoked no sponsor from the patient. Just a blank stare. Catatonia is said to respond to Ativan in high doses but only for short period of time. Consulting with a colleague who tells me there are studies using Ambien that has not ameliorative effect for up to 8 hours. Obviously, this is treating the symptoms without treating the underlying depression. There might be some benefit with musculoskeletal system and perhaps blood pressure. It would be worthwhile to try this once the patient is on a monitored bed. Mental Status Examination Appearance: Appropriate Consciousness: Alert Orientation: Person, Place, Situation (PT to attempt out of bed as tolerated.) Motor Activity: Other (Patient in bed and not cooperative with efforts to demonstrate motor activity) Speech: Unremarkable Language: Adequate Fund of Knowledge: Adequate Attention and Concentration: Adequate Memory: Impaired (Complains of short-term loss) Mood: Sad Affect: Flat (Improving; less flatness) Thought Process & Associations: Other (Untestable at this time thought to be intact) Thought Content: Appropriate Hallucination Type: None Delusion Type: None Suicidal Ideation: No Suicidal Plan: No Suicidal Intention: No Homicidal Ideation: No Homicidal Plan: No Homicidal Intention: No Insight: Poor Judgment: Poor Assessment and Plan - Assessment (1) Delirium due to another medical condition Code(s): F05 - Delirium due to known physiological condition Status: Acute (2) Catatonia Code(s): F06.1 - Catatonic disorder due to known physiological condition Status: Acute - Plan Plan: Continue current treatment plan. Current medications are deemed ineffective and unlikely to produce results in the near future. There is some research suggesting sedative-hypnotics including Ambien and Ativan may treat symptoms, with her the symptoms include lowering blood pressure is a question I am unable to answer at this point. Once the patient is on a monitored bed I would feel comfortable trying Ambien which is said to have a longer effect. This would be at best a temporary solution to what at this point would be the highest chance of improvement: ECT. Justification for Continued Inpatient Stay: Patient's medical condition is deteriorating with blood pressure is elevated to over 240 systolic. Patient will require transfer to medical floor for monitored bed.
[2018-05-01] MEDS ORDERED: hydroCHLOROthiazide 25 MG Tablet PO SCH (09:00)
== END 2018-04-30 12:06 | disposition short-term general hospital (02) ==
LOC: H4EA 22:30
PROVIDERS: ADMIT Psychiatry & Neurology Child & Adolescent Psychiatry; ATTEND Psychiatry & Neurology Child & Adolescent Psychiatry

== ENCOUNTER 2018-04-30 11:50 | Inpatient (IN) ==
[2018-04-30] MEDS ORDERED: Bisacodyl 10 MG Supp RECTAL PRN (12:28)
[2018-04-30] MEDS ORDERED: Heparin - SQ 10,000 UNITS/ML Vial SQ SCH (12:30)
--- NOTE | 2018-04-30 12:54 | P.PNNEU ---
Subjective Subjective Comments: Transferred from psychiatry unit to ICU for severe hypertension Active Medications: Active Medications Acetaminophen (Tylenol Liq) 650 mg PO Q6H PRN PRN Reason: PAIN 1-10 AND/OR FEVER >101F Al Hydroxide/Mg Hydroxide (Milk Of Magnesia Liq) 30 ml PO Q12H PRN PRN Reason: Mild Constipation Amlodipine Besylate (Norvasc) 10 mg PO DAILY YUKO Atorvastatin Calcium (Lipitor) 40 mg PO HS Y[facility]KO Bisacodyl (Dulcolax Supp) 10 mg RECTAL DAILY PRN PRN Reason: SEVERE CONSITIPATION Chlorhexidine Gluconate (Chlorhexidine 2% Cloth) 3 pack TOPICAL DAILY@0400 Y[facility]KO Stop: 05/06/18 03:59 Chlorhexidine Gluconate (Chlorhexidine 2% Cloth) 3 pack TOPICAL DAILY@0400 PRN PRN Reason: Extra cloth needed Stop: 05/06/18 03:59 Famotidine (Pepcid) 20 mg PO BID YUKO Famotidine (Pepcid Pf Inj) 20 mg IV.PUSH Q12HR Y[facility]KO Heparin Sodium (Porcine) (Heparin Inj) 5,000 units SQ Q12H Y[facility]KO Potassium Chloride/Sodium Chloride (Ns + Kcl 20 Meq Inj) 1,000 mls @ 100 mls/ hr IV.CONT .Q10H Y[facility]KO Lactulose (Lactulose Liq) 30 ml PO DAILY PRN PRN Reason: SEVERE CONSITIPATION Senna/Docusate Sodium (Aleah-Colace) 1 tab PO BID [facility] Sennosides (Senokot) 17.2 mg PO Q12H PRN PRN Reason: Moderate Constipation Sodium Chloride (Ns Flush) 2 ml IV.FLUSH BID YUKO Sodium Chloride (Ns Flush) 2 ml IV.FLUSH UNSCH PRN PRN Reason: FLUSH AFTER USING IV ACCESS Allergies/Adverse Reactions: Allergies Allergy/AdvReac Type Severity Reaction Status Date / Time iodine Allergy Swelling Verified 04/19/18 15:50 Review of Systems unobtainable due to mental status Physical Exam Narrative: alert awake oriented x1, follows occasionally, no gaze deviation, neck supple, allen to gravity except rt leg amputation, planterflexor, no clonus, withdraws to pin - Constitutional no acute distress - Routine HEENT Exam Head: Present: normocephalic Eye: Present: EOMI Review/Management - Diagnosis (1) Hypertensive encephalopathy Code(s): I67.4 - Hypertensive encephalopathy Status: Acute Current Visit: Yes (2) HTN (hypertension) Code(s): I10 - Essential (primary) hypertension Status: Acute Current Visit : No (3) Dementia Code(s): F03.90 - Unspecified dementia without behavioral disturbance Status: Acute Current Visit: No (4) Seizures Code(s): R56.9 - Unspecified convulsions Status: Chronic Current Visit: No (5) Anxiety Code(s): F41.9 - Anxiety disorder, unspecified Status: Acute Current Visit: No - Review/Management Plan: 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 may have element of PRES as noted in prior notes recs check csf studies-pending bp control Thiamine supplementation follow exam Dr. Mehta to follow in a.m. (2) HTN (hypertension) Qualifiers:
[2018-04-30] MEDS ORDERED: Dextrose 50% in Water 50 ML Vial IV.PUSH PRN ×2 (13:08→13:11)
--- NOTE | 2018-04-30 13:26 | P.HPFP ---
History of Present Illness Service: [facility] Medicine Primary Care Physician: UNKNOWN History of Present Illness: Ms Pedroza is a 68-year-old female with a history of right AKA due to peripheral vascular disease, dementia, diabetes, hypertension, non-Hodgkin's lymphoma in remission since 2008, and seizures admitted with altered mental status. Prior to coming into the hospital this month she had been seen as an outpatient at the [facility] and had been her usual state alert, talkative, moving around and applying for a motorized wheelchair. She does have a history of depression and a very remote history of depression which required hospitalization. However recently she had been in pretty normal state. The evening before she got admitted her daughter had noted that she was behaving abnormally and going out into the ow[place] and sitting in her wheelchair and other unusual behaviors. She was initially admitted as an observation patient and deteriorated when she began to exhibit signs and symptoms of catatonic state. Psychiatry noted that she had waxy flexibility which is characteristic as well and an absence of spontaneously walking around or any of her normal behavior. She does have a history of hypertension and on occasion during this hospitalization has had high blood pressures. She has responded well to Ativan which according to the nursing staff has been seeing her wakes her up for 30-45 minutes. However during this hospitalization she has not gotten substantially better and is still catatonic but arousable for the vast majority of the day. Her blood pressure had initially been up to about 200 systolic with alteration of her medications she was about 160-180 yesterday however overnight they micky to the 240s systolic and were sustained. When Dr. Saravia her resident was called today with the very high blood pressure she gave her multiple higher dose medications. However as she was on the med psych floor it was difficult to continue monitoring her more acutely. So the decision was made to transfer her to intensive care. On arrival there her blood pressure medicines were working better and her pressures are now in a much better range down into the 150s systolic. However she should not be transferred back to med psych and will last her blood pressures remained stable. On discussion with her psychiatrist which based on the fact that she has shown little improvement despite being on medications during this hospitalization she would be a candidate for ECT. However she needs to have a discharge approve this treatment since she cannot have the capacity at this time to make these decisions for herself I transfer has been put in if her blood pressures remained stable and at a good level she was in the systolic 160s-180s yesterday and if she remains at that level she should be able to be transferred overnight to perhaps CIC or floor where she could if needed be given IV medication. - Diagnosis (1) HTN (hypertension) (2) Catatonia associated with another mental disorder (3) Seizures (4) Hyperlipidemia (5) Nutrition, metabolism, and development symptoms (6) Diabetes (7) Clavicle fracture Inpatient Certification: I certify that the inpatient services were ordered in accordance with Medicare regulations governing the order. This includes certification that hospital inpatient services are reasonable and necessary and in the case of services not specified as inpatient-only under 42 CFR 419.22(n), that they are appropriately provided as inpatient services in accordance to with the 2-midnight benchmark under 43 CFR 412.3(e) Estimated Total Length of Stay (Days): 5 Plans for Post Hospital Care: Not yet determined Review of Systems unobtainable due to mental condition PMFSH - History History Provided By: Patient, Family Member - Medical History Medical History: Medical History (Last Reviewed 04/26/18 @ 08:12 by Leandro Tejada, PT) Anxiety Dementia Diabetes Gout H/O fracture of wrist HTN (hypertension) High cholesterol History of stroke Non-Hodgkin lymphoma - Surgical History Surgical History: Surgical History (Last Reviewed 04/26/18 @ 08:13 by Leandro Tejada, PT) Above knee amputation of right lower extremity - Family History Family History: Family History (Last Updated 04/19/18 @ 19:29 by Clare Underwood MD, R2) Father Heart disease Brother Leukemia - Social History I have reviewed the patient's Social History: Yes - Tobacco History Second Hand Smoke Exposure: Yes Smoking Status: Unknown if ever smoked Tobacco Type: Cigarettes - Alcohol History How Often Do You Have a Drink Containing Alcohol: Unable to Obtain - Substance Use History Substance History: Past History Medications and Allergies Active Medications: Active Medications Acetaminophen (Tylenol Liq) 650 mg PO Q6H PRN PRN Reason: PAIN 1-10 AND/OR FEVER >101F Al Hydroxide/Mg Hydroxide (Milk Of Magnesia Liq) 30 ml PO Q12H PRN PRN Reason: Mild Constipation Amlodipine Besylate (Norvasc) 10 mg PO DAILY [facility] Atorvastatin Calcium (Lipitor) 40 mg PO HS [facility] Bisacodyl (Dulcolax Supp) 10 mg RECTAL DAILY PRN PRN Reason: SEVERE CONSITIPATION Chlorhexidine Gluconate (Chlorhexidine 2% Cloth) 3 pack TOPICAL DAILY@0400 [facility] Stop: 05/06/18 03:59 Chlorhexidine Gluconate (Chlorhexidine 2% Cloth) 3 pack TOPICAL DAILY@0400 PRN PRN Reason: Extra cloth needed Stop: 05/06/18 03:59 Clonidine HCl (Catapres) 0.2 mg PO Q8HR [facility] Dextrose (D50w Vial) 50 ml IV.PUSH UNSCH PRN PRN Reason: PER HYPOGLYCEMIA PROTOCOL Dextrose (D50w Vial) 50 ml IV.PUSH UNSCH PRN PRN Reason: PER HYPOGLYCEMIA PROTOCOL Enalaprilat (Vasotec Inj) 2.5 mg IV.PUSH Q6H PRN PRN Reason: BP greater than 200 systolic Escitalopram Oxalate (Lexapro) 20 mg PO DAILY [facility] Famotidine (Pepcid) 20 mg PO BID [facility] Gabapentin (Neurontin) 600 mg PO BID [facility] Glucagon (Glucagon Inj) 1 mg OTHER PRN PRN PRN Reason: for Hypoglycemia Protocol Hydralazine HCl (Apresoline) 25 mg PO TID [facility] Hydrochlorothiazide (Hydrodiuril) 25 mg PO DAILY [facility] Potassium Chloride/Sodium Chloride (Ns + Kcl 20 Meq Inj) 1,000 mls @ 100 mls/ hr IV.CONT .Q10H [facility] Levetiracetam (Keppra 1000 Mg/100 Ml Premix) 100 mls @ 400 mls/hr IV.SIG Q12H [facility] Insulin Aspart (Novolog Insulin Correctional Sugar Inj) 0 unit SQ ACHS AND 3AM [facility]; Protocol Lactulose (Lactulose Liq) 30 ml PO DAILY PRN PRN Reason: SEVERE CONSITIPATION Lisinopril (Prinivil) 20 mg PO DAILY [facility] Lorazepam (Ativan Inj) 2 mg IV.PUSH Q6H [facility] Senna/Docusate Sodium (Aleah-Colace) 1 tab PO BID [facility] Sennosides (Senokot) 17.2 mg PO Q12H PRN PRN Reason: Moderate Constipation Sodium Chloride (Ns Flush) 2 ml IV.FLUSH BID [facility] Sodium Chloride (Ns Flush) 2 ml IV.FLUSH UNSCH PRN PRN Reason: FLUSH AFTER USING IV ACCESS Thiamine HCl (Thiamine Inj) 100 mg IM DAILY [facility] Allergies Allergy/AdvReac Type Severity Reaction Status Date / Time iodine Allergy Swelling Verified 04/19/18 15:50 Home Medications Medication Instructions Recorded Confirmed Type glimepiride 2 mg PO QAM 04/18/18 04/19/18 History lisinopril 10 mg PO DAILY 04/18/18 04/19/18 History lorazepam 0.5 mg PO DAILY 04/18/18 04/19/18 History metformin 500 mg PO DAILY 04/18/18 04/19/18 History phenobarbital 15 mg PO DAILY PRN 04/18/18 04/18/18 History simvastatin 80 mg PO QPM 04/18/18 04/19/18 History tramadol 150 mg PO PRN 04/18/18 04/19/18 History escitalopram oxalate 04/19/18 04/19/18 History gabapentin 04/19/18 04/19/18 History levetiracetam 04/19/18 History quetiapine 04/19/18 04/19/18 History Exam Vital signs: Intake & Output 04/29/18 04/30/18 04/30/18 18:59 06:59 18:59 Weight 58.2 kg Other: Weight On Admission 58.2 kg - Constitutional no acute distress, average body habitus, somnolent - Routine HEENT Exam Head: Present: normocephalic, atraumatic. Absent: abrasion, laceration, facial swelling ENT: Present: external ear normal - Routine Neck Exam Present: trachea midline - Routine Respiratory Exam Present: CTA bilaterally. Absent: accessory muscle use, patient mechanically ventilated, decreased breath sounds, prolonged expiratory phase, rales, respiratory distress, diminished air movement - Routine Cardiovascular Exam Present: RRR. Absent: bradycardia, tachycardia, irregular rhythm, irregularly irregular - Routine Abdominal Exam Present: soft. Absent: tenderness, distended, rebound - Routine Extremities Exam Present: amputation. Absent: cyanosis, clubbing, edema - Routine Skin Exam Present: intact, dry. Absent: petechiae, rash - Routine Neurological Exam Present: altered mental status, moving all extremities, hearing grossly intact. Absent: hemineglect, fasciculations, tremors Caprini VTE Risk Assessment Caprini VTE Risk Assessment: Moderate/High Risk (score >= 2) (going for LP. must hold her lovenox for that) Caprini Risk Assessment Model: Point Value = 1 Point Value = 2 Point Value = 3 Point Value = 5 Age 41-60 Minor surgery BMI > 25 kg/m2 Swollen legs Varicose veins or History of unexplained or recurrent spontaneous Oral contraceptives or hormone replacement Sepsis (< 1 month) Serious lung disease, including pneumonia (< 1 month) Abnormal pulmonary function Acute myocardial infarction Congestive heart failure (< 1 month) History of inflammatory bowel disease Medical patient at bed rest Age 61-74 Arthroscopic surgery Major open surgery (> 45 min) Laparoscopic surgery (> 45 min) Malignancy Confined to bed (> 72 hours) Immobilizing plaster cast Central venous access Age >= 75 History of VTE Family history of VTE Factor V Leiden Prothrombin [id number] Lupus anticoagulant Anticardiolipin antibodies Elevated serum homocysteine Heparin-induced thrombocytopenia Other congenital or acquired thrombophilia Stroke (< 1 month) Elective arthroplasty Hip, pelvis, or leg fracture Acute spinal cord injury (< 1 month) Prophylaxis Regimen: Total Risk Factor Score Risk Level Prophylaxis Regimen 0-1 Low Early ambulation 2 Moderate Order ONE of the following: *Sequential Compression Device (SCD) *Heparin 5000 units SQ BID 3-4 Higher Order ONE of the following medications: *Heparin 5000 units SQ TID *Enoxaparin/Lovenox 40 mg SQ daily (WT < 150 kg, CrCl > 30 mL/min) *Enoxaparin/Lovenox 30 mg SQ daily (WT < 150 kg, CrCl > 10-29 mL/min) *Enoxaparin/Lovenox 30 mg SQ BID (WT < 150 kg, CrCl > 30 mL/min) AND/OR *Sequential Compression Device (SCD) 5 or more Highest Order ONE of the following medications: *Heparin 5000 units SQ TID (Preferred with Epidurals) *Enoxaparin/Lovenox 40 mg SQ daily (WT < 150 kg, CrCl > 30 mL/min) *Enoxaparin/Lovenox 30 mg SQ daily (WT < 150 kg, CrCl > 10-29 mL/min) *Enoxaparin/Lovenox 30 mg SQ BID (WT < 150 kg, CrCl > 30 mL/min) AND *Sequential Compression Device (SCD) Assessment and Plan - Assessment (1) HTN (hypertension) Code(s): I10 - Essential (primary) hypertension Status: Acute Plan: Her blood pressures were very elevated overnight. Hypertensive crisis is not unusual with catatonia. Sometimes they can have autonomic instability where they can have tachycardia or fever. Fortunately she has not had either of those problems. Her blood pressure was were not improved initially with clonidine and hydralazine. Dr. Saravia who saw her this morning, greatly increased and changed her blood pressure medication to address her serious hypertension. Her Catapres patch was discontinued and she was put on 0.2 mg of clonidine 3 times daily as well and was starting HCTZ 25 mg daily and hydralazine 25 mg p.o. 3 times daily and lisinopril 20 mg daily amlodipine 10 mg daily was to be started by with not required. She has been transferred to the [facility] as her blood pressure can be monitored more frequently. The new increased doses of medication that she required may be too much. Some hold parameters have been added but she still could use frequent BPs. Her catatonia has been so bad that she was not taking any p.o. but she is improving to the point where she is taking her medications more regularly. IV medications can be given if she refuses the p.o. She was transferred out of the med psych unit but hopefully if her blood pressures are more stable she could be transferred back as she does have her serious psychiatric diagnosis (2) Catatonia associated with another mental disorder Code(s): F06.1 - Catatonic disorder due to known physiological condition Status: Acute Plan: She has had some recent depression which is leading to this catatonia. She responds to the Ativan for 30-45 minutes and then drops back into her somnolent state. Medically she has had normal labs. her ABG was normal. her other labs including LATONYA rheumatoid factor RPR ESR were not indicative of any physical causes serious enough to lead to this mental state. Serious consideration is being given to transfer her to a hospital where she can receive ECT. In the meantime we will continue her on the dose of Ativan 2 mg IV every 6 hours were recommended by psychiatry initially. (3) Seizures Code(s): R56.9 - Unspecified convulsions Status: Acute Plan: Her last seizure prior to this hospitalization was in 2007. Now she had a possible repeat seizures some days ago. She had not been taking p.o. and her Keppra level was low her EEG showed nonspecific encephalopathy. Right now she is on Keppra 1000 mg IV twice daily she is scheduled for a lumbar puncture on Sunday her Lovenox is being held (4) Hyperlipidemia Code(s): E78.5 - Hyperlipidemia, unspecified Status: Chronic Plan: We will continue on her regular medications. (5) Nutrition, metabolism, and development symptoms Code(s): R63.8 - Other symptoms and signs concerning food and fluid intake Status: Acute Plan: She does not seem to be eating well during this hospitalization. Hopefully she can get a ECT soon which gets people better more quickly. Would not want to place a PEG tube as this is a temporary condition. Hesitate also to place an NG and she is taking some p.o. at this point and there is always a concern with possible aspiration and other problems with an NG tube. She is altered. Intermittently she is more alert. If she cannot get to ECT soon and improved to the point where she eats better calorie count can be considered or other measures. (6) Diabetes Code(s): E11.9 - Type 2 diabetes mellitus without complications Status: Chronic Plan: Based on her relatively poor p.o. intake we will not give regular doses of her diabetic medication can decide about giving insulin more regularly and scheduled if she eats better but will check her glucoses and give a low sliding scale for now. (7) Clavicle fracture Code(s): S42.009A - Fracture of unspecified part of unspecified clavicle, initial encounter for closed fracture Status: Acute Plan: getting tylenol prn. she is healing over time. right sided fracture H&P: Quality - VTE Deep Vein Thrombosis/Pulmonary Embolism Present on Admission: No (1) HTN (hypertension) Qualifiers: Hypertension type: other secondary hypertension Qualified Code(s): I15.8 - Other secondary hypertension (4) Hyperlipidemia Qualifiers: Hyperlipidemia type: pure hypercholesterolemia Qualified Code(s): E78.00 - Pure hypercholesterolemia, unspecified; E78.0 - Pure hypercholesterolemia (6) Diabetes Qualifiers: Diabetes mellitus type: type 2 Diabetes mellitus fpc insulin use: unspecified fpc insulin use status Diabetes mellitus complication status : with circulatory complication Diabetes mellitus complication detail: with peripheral angiopathy without gangrene Qualified Code(s): E11.51 - Type 2 diabetes mellitus with diabetic peripheral angiopathy without gangrene (7) Clavicle fracture Qualifiers: Encounter type: subsequent encounter Fracture type: closed Laterality: right
[2018-04-30] MEDS: hydrALAZINE 25 MG Tablet PO SCH ×2 (15:03→18:26)
[2018-04-30] MEDS: levETIRAcetam 1000mg/100mL Inj 100 ML IV.SIG SCH (15:06)
[2018-04-30] MEDS: Insulin NovoLOG Aspart Correctional Sugar Inj SQ SCH ×2 (18:26→20:31)
[2018-04-30] MEDS: Senna/Docusate Sodium 8.6/50 MG Tablet PO SCH (20:29)
[2018-04-30] MEDS: Gabapentin 300 MG Capsule PO SCH (20:29)
[2018-04-30] MEDS: Famotidine 20 MG Tablet PO SCH (20:30)
[2018-04-30] MEDS ORDERED: Famotidine PF Inj 20 MG/2 ML Vial IV.PUSH SCH (21:00)
[2018-05-01] MEDS: levETIRAcetam 1000mg/100mL Inj 100 ML IV.SIG SCH ×2 (01:30→15:45)
[2018-05-01] MEDS ORDERED: Chlorhexidine Gluconate 2% 1 Pack (2 Cloths) TOPICAL PRN (04:00)
[2018-05-01] MEDS: Chlorhexidine Gluconate 2% 1 Pack (2 Cloths) TOPICAL SCH (04:23)
[2018-05-01] MEDS: Insulin NovoLOG Aspart Correctional Sugar Inj SQ SCH ×5 (04:23→20:26)
[2018-05-01 04:38] LABS: Baso # (Auto) 0.1 th/mm3 (0.0-0.2); Eos # (Auto) 0.4 th/mm3 (0.0-0.4); Eos % (Auto) 4.7 % (0.0-4.0); Hematocrit 37.7 % (35.0-46.0); Hemoglobin 12.9 gm/dL (11.6-15.3); Lymph # (Auto) 2.8 th/mm3 (1.0-4.8); Lymph % (Auto) 31.1 % (9.0-44.0); Mean Corpuscular HGB Conc 34.4 % (32.0-36.0); Mean Corpuscular Hemoglobin 31.4 pg (27.0-34.0); Mean Corpuscular Volume 91.3 fL (80.0-100.0); Mean Platelet Volume 9.4 fL (7.0-11.0); Mono # (Auto) 0.8 th/mm3 (0.0-0.9); Mono % (Auto) 8.9 % (0.0-8.0); Neut # (Auto) 4.9 th/mm3 (1.8-7.7); Neut % (Auto) 54.3 % (16.0-70.0); Platelet Count 196 th/mm3 (150-450); Red Blood Count 4.12 mil/mm3 (4.00-5.30); Red Cell Distribution Width 13.9 % (11.6-17.2)
[2018-05-01 05:06] LABS: Alanine Aminotransferase 14 U/L (10-53); Albumin 2.2 g/dL (3.4-5.0); Anion Gap 7 meq/L (5-15); Aspartate Aminotransferase 29 U/L (15-37); Blood Urea Nitrogen 15 mg/dL (7-18); Calcium 7.8 mg/dL (8.5-10.1); Carbon Dioxide 26.5 meq/L (21.0-32.0); Chloride 110 meq/L (98-107); Glomerular Filtration Rate 77 mL/min (>89); Glucose,Random 122 mg/dL (74-106); Magnesium 1.7 mg/dL (1.5-2.5); Potassium 3.8 meq/L (3.5-5.1); Sodium 143 meq/L (136-145)
[2018-05-01 05:09] LABS: Alkaline Phosphatase 77 U/L (45-117); Prealbumin 14 mg/dL (20-40); Total Protein 5.3 g/dL (6.4-8.2)
[2018-05-01] MEDS: Gabapentin 300 MG Capsule PO SCH ×2 (08:20→08:56)
[2018-05-01] MEDS: Senna/Docusate Sodium 8.6/50 MG Tablet PO SCH ×3 (08:20→20:26)
[2018-05-01] MEDS: Famotidine 20 MG Tablet PO SCH ×2 (08:21→08:57)
[2018-05-01] MEDS: hydroCHLOROthiazide 25 MG Tablet PO SCH ×2 (08:21→08:56)
[2018-05-01] MEDS: Lisinopril 20 MG Tablet PO SCH ×2 (08:21→08:57)
[2018-05-01] MEDS: hydrALAZINE 25 MG Tablet PO SCH ×2 (08:21→08:52)
[2018-05-01] MEDS: amLODIPine 10 MG Tablet PO SCH ×2 (08:21→08:56)
--- NOTE | 2018-05-01 08:30 | P.PNNEU ---
Subjective Active Medications: Active Medications Acetaminophen (Tylenol Liq) 650 mg PO Q6H PRN PRN Reason: PAIN 1-10 AND/OR FEVER >101F Al Hydroxide/Mg Hydroxide (Milk Of Magnesia Liq) 30 ml PO Q12H PRN PRN Reason: Mild Constipation Amlodipine Besylate (Norvasc) 10 mg PO DAILY [facility] Last Admin: 05/01/18 08:21 Dose: 10 mg Atorvastatin Calcium (Lipitor) 40 mg PO HS [facility] Last Admin: 04/30/18 20:29 Dose: 40 mg Bisacodyl (Dulcolax Supp) 10 mg RECTAL DAILY PRN PRN Reason: SEVERE CONSITIPATION Chlorhexidine Gluconate (Chlorhexidine 2% Cloth) 3 pack TOPICAL DAILY@0400 [facility] Stop: 05/06/18 03:59 Last Admin: 05/01/18 04:23 Dose: Not Given Chlorhexidine Gluconate (Chlorhexidine 2% Cloth) 3 pack TOPICAL DAILY@0400 PRN PRN Reason: Extra cloth needed Stop: 05/06/18 03:59 Clonidine HCl (Catapres) 0.2 mg PO Q8HR [facility] Last Admin: 05/01/18 08:07 Dose: Not Given Dextrose (D50w Vial) 50 ml IV.PUSH UNSCH PRN PRN Reason: PER HYPOGLYCEMIA PROTOCOL Dextrose (D50w Vial) 50 ml IV.PUSH UNSCH PRN PRN Reason: PER HYPOGLYCEMIA PROTOCOL Enalaprilat (Vasotec Inj) 2.5 mg IV.PUSH Q6H PRN PRN Reason: BP greater than 200 systolic Escitalopram Oxalate (Lexapro) 20 mg PO DAILY [facility] Last Admin: 05/01/18 08:20 Dose: 20 mg Famotidine (Pepcid) 20 mg PO BID [facility] Last Admin: 05/01/18 08:21 Dose: 20 mg Gabapentin (Neurontin) 600 mg PO BID [facility] Last Admin: 05/01/18 08:20 Dose: 600 mg Glucagon (Glucagon Inj) 1 mg OTHER PRN PRN PRN Reason: for Hypoglycemia Protocol Hydralazine HCl (Apresoline) 25 mg PO TID [facility] Last Admin: 05/01/18 08:21 Dose: 25 mg Hydrochlorothiazide (Hydrodiuril) 25 mg PO DAILY [facility] Last Admin: 05/01/18 08:21 Dose: 25 mg Potassium Chloride/Sodium Chloride (Ns + Kcl 20 Meq Inj) 1,000 mls @ 100 mls/ hr IV.CONT .Q10H [facility] Last Infusion: 05/01/18 08:22 Dose: 100 mls/hr Levetiracetam (Keppra 1000 Mg/100 Ml Premix) 100 mls @ 400 mls/hr IV.SIG Q12H [facility] Last Infusion: 05/01/18 01:45 Dose: Infused Insulin Aspart (Novolog Insulin Correctional Sugar Inj) 0 unit SQ ACHS AND 3AM [facility]; Protocol Last Admin: 05/01/18 08:21 Dose: Not Given Lactulose (Lactulose Liq) 30 ml PO DAILY PRN PRN Reason: SEVERE CONSITIPATION Lisinopril (Prinivil) 20 mg PO DAILY [facility] Last Admin: 05/01/18 08:21 Dose: 20 mg Lorazepam (Ativan Inj) 2 mg IV.PUSH Q6H [facility] Last Admin: 05/01/18 08:20 Dose: 2 mg Senna/Docusate Sodium (Aleah-Colace) 1 tab PO BID [facility] Last Admin: 05/01/18 08:20 Dose: 1 tab Sennosides (Senokot) 17.2 mg PO Q12H PRN PRN Reason: Moderate Constipation Sodium Chloride (Ns Flush) 2 ml IV.FLUSH BID [facility] Last Admin: 05/01/18 08:21 Dose: 2 ml Sodium Chloride (Ns Flush) 2 ml IV.FLUSH UNSCH PRN PRN Reason: FLUSH AFTER USING IV ACCESS Thiamine HCl (Thiamine Inj) 100 mg IM DAILY [facility] Last Admin: 05/01/18 08:20 Dose: 100 mg Allergies/Adverse Reactions: Allergies Allergy/AdvReac Type Severity Reaction Status Date / Time iodine Allergy Swelling Verified 04/19/18 15:50 Physical Exam Vital signs: Vital Signs 04/30/18 14:00 04/30/18 14:30 04/30/18 15:00 Temperature Pulse Rate 60 60 62 Respiratory Rate 24 24 24 Blood Pressure 122/62 136/61 138/59 L Pulse Oximetry 93 L 93 L 92 L 04/30/18 15:30 04/30/18 16:00 04/30/18 16:30 Temperature 98.2 F Pulse Rate 62 58 L 60 Respiratory Rate 26 H 24 26 H Blood Pressure 126/62 111/58 L 114/58 L Pulse Oximetry 91 L 93 L 91 L 04/30/18 17:00 04/30/18 17:30 04/30/18 18:00 Temperature Pulse Rate 67 59 L 57 L Respiratory Rate 24 24 24 Blood Pressure 129/65 130/59 L 142/65 H Pulse Oximetry 90 L 91 L 92 L 04/30/18 18:30 04/30/18 19:00 04/30/18 19:30 Temperature Pulse Rate 59 L 57 L 57 L Respiratory Rate 24 26 H 26 H Blood Pressure 132/63 143/69 H 152/67 H Pulse Oximetry 92 L 92 L 92 L 04/30/18 20:00 04/30/18 22:00 04/30/18 23:45 Temperature 98.3 F 98.2 F Pulse Rate 58 L 61 59 L Respiratory Rate 25 H 14 Blood Pressure 149/67 H 149/70 H Pulse Oximetry 90 L 95 05/01/18 00:00 05/01/18 02:00 05/01/18 04:00 Temperature 98.3 F Pulse Rate 56 L 58 L 56 L Respiratory Rate 14 Blood Pressure 137/65 Pulse Oximetry 95 05/01/18 06:00 Temperature Pulse Rate 60 Respiratory Rate Blood Pressure Pulse Oximetry Intake & Output 04/30/18 05/01/18 05/01/18 18:59 06:59 18:59 Intake Total 100 / 100 1200 / 1200 500 / 500 Output Total 50 / 50 Balance 100 / 100 1150 / 1150 500 / 500 Weight 58.2 kg 61.6 kg Intake: IV 100 / 100 1100 / 1100 500 / 500 NS + KCl 20 mEq Inj 1,000 ML @ 1000 / 1000 500 / 500 100 mls/hr IV.CONT .Q10H [facility] Rx #:[id number] Keppra 1000 mg/100 mL Premix 100 / 100 100 / 100 100 ML @ 400 mls/hr IV.SIG Q12H [facility] Rx#:[id number] Oral 100 / 100 Output: Urine 50 / 50 Other: # Incontinent Voids 4 2 Weight On Admission 58.2 kg Narrative: not talking now said ow only looks at me not follow commands Objective Laboratory Results - last 24 hr 04/30/18 04/30/18 04/30/18 13:00 17:23 20:26 WBC RBC Hgb Hct MCV MCH MCHC RDW Plt Count MPV Neut % (Auto) Lymph % (Auto) [place] % (Auto) Eos % (Auto) Baso % (Auto) Neut # (Auto) Lymph # (Auto) [place] # (Auto) Eos # (Auto) Baso # (Auto) WBC Differential Differential Comment Sodium Potassium Chloride Carbon Dioxide Anion Gap BUN Creatinine Estimated GFR POC Glucose 130 H 144 H Random Glucose Lactic Acid Calcium Magnesium Total Bilirubin AST ALT Alkaline Phosphatase Total Protein Albumin Prealbumin Nasal Screen MRSA (PCR) Not detected 05/01/18 05/01/18 05/01/18 04:22 04:23 04:23 WBC 9.0 RBC 4.12 Hgb 12.9 Hct 37.7 MCV 91.3 MCH 31.4 MCHC 34.4 RDW 13.9 Plt Count 196 MPV 9.4 Neut % (Auto) 54.3 Lymph % (Auto) 31.1 [place] % (Auto) 8.9 H Eos % (Auto) 4.7 H Baso % (Auto) 1.0 Neut # (Auto) 4.9 Lymph # (Auto) 2.8 [place] # (Auto) 0.8 Eos # (Auto) 0.4 Baso # (Auto) 0.1 WBC Differential . Differential Comment Auto diff final Sodium 143 Potassium 3.8 Chloride 110 H Carbon Dioxide 26.5 Anion Gap 7 BUN 15 Creatinine 0.75 Estimated GFR 77 L POC Glucose 113 H Random Glucose 122 H Lactic Acid Calcium 7.8 L Magnesium 1.7 Total Bilirubin 0.5 AST 29 ALT 14 Alkaline Phosphatase 77 Total Protein 5.3 L Albumin 2.2 L Prealbumin 14 L Nasal Screen MRSA (PCR) 05/01/18 05/01/18 04:23 08:05 WBC RBC Hgb Hct MCV MCH MCHC RDW Plt Count MPV Neut % (Auto) Lymph % (Auto) [place] % (Auto) Eos % (Auto) Baso % (Auto) Neut # (Auto) Lymph # (Auto) [place] # (Auto) Eos # (Auto) Baso # (Auto) WBC Differential Differential Comment Sodium Potassium Chloride Carbon Dioxide Anion Gap BUN Creatinine Estimated GFR POC Glucose 121 H Random Glucose Lactic Acid 0.7 Calcium Magnesium Total Bilirubin AST ALT Alkaline Phosphatase Total Protein Albumin Prealbumin Nasal Screen MRSA (PCR) Review/Management - Diagnosis (1) Hypertensive encephalopathy Code(s): I67.4 - Hypertensive encephalopathy Status: Acute Current Visit: Yes (2) HTN (hypertension) Code(s): I10 - Essential (primary) hypertension Status: Acute Current Visit : No (3) Dementia Code(s): F03.90 - Unspecified dementia without behavioral disturbance Status: Acute Current Visit: No (4) Seizures Code(s): R56.9 - Unspecified convulsions Status: Acute Current Visit: No (5) Anxiety Code(s): F41.9 - Anxiety disorder, unspecified Status: Acute Current Visit: No - Review/Management Plan: 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 may have element of PRES as noted in prior notes recs check csf studies-pending bp control Thiamine supplementation follow exam Dr. Mehta to follow in a.m. 05/01/18 mri loops like PRES mra and mrv and labs all neg keep bp 110-120/ LP today eeg neg on keppra (2) HTN (hypertension) Qualifiers: Hypertension type: other secondary hypertension Qualified Code(s): I15.8 - Other secondary hypertension
--- NOTE | 2018-05-01 08:43 | US ---
EXAM DATE: 05/01/2018 8:32 AM EST AGE/SEX: 68 years / Female INDICATIONS: Altered mental status. CLINICAL DATA: This is the patient's initial encounter. Patient reports that signs and symptoms have been present for 1 day and indicates a pain score of Nonresponsive. MEDICAL/SURGICAL HISTORY: Hypercholesterolemia. Hypertension. Anxiety. Dementia. Gout. Diabete s. Non-Hodgkin's lymphoma. . Above the knee amputation, right leg. COMPARISON: No prior exams available for comparison. VELOCITY PARAMETERS: ICA/CCA Ratio: Right 1.5 , Left 1.8 ICA: Right 92 cm/sec, Left 157 cm/sec CCA: Right 60 cm/sec, Left 85 cm/sec ECA: Right 113 cm/sec, Left 147 cm/sec Vertebral: Right 66 cm/sec antegrade, Left 51 cm/sec antegrade FINDINGS: Right Carotid: Moderate arteriosclerotic plaque is visualized.The waveforms are within normal limits . Left Carotid: There is elevation of the peak systolic velocity of the left internal carotid artery khan ggesting 50-69% stenosis although the ICA/CCA ratio on the left suggests less than 50% stenosis. CTA of the carotids would be helpful to resolve these discordant findings. There is also elevation of the peak systolic velocity of the left external carotid artery in the 50-69% stenosis range. The wavefor ms are within normal limits. Other: None. CONCLUSION: 1. Elevation of the peak systolic velocity of the left internal carotid artery suggesting 50-69% angela nosis although the ICA/CCA ratio on the left suggests less than 50% stenosis. CTA of the carotids wou ld be helpful to resolve these discordant findings. There is also elevation of the peak systolic [place] of the left external carotid artery in the 50-69% stenosis range. 2. Less than 50% stenosis involving the right internal carotid artery. 3. Moderate atherosclerotic plaque formation within the carotid bulbs and proximal internal carotid arteries. Electronically signed by: César Jimenez MD Board Certified Radiologist 05/01/2018 8:42 AM EST
[2018-05-01] MEDS ORDERED: Enoxaparin Inj 40 MG/0.4 ML Syringe SQ SCH (09:00)
--- NOTE | 2018-05-01 09:51 | P.PNFP ---
Subjective Interval history: 68 yo female with dementia, DM, HTN admitted for hypertension related to catatonia (due likely to depression). This morning responds to questioning intermittently, difficult to elicit much history. States she slept well and is not in pain. Does not speak much. <TorresJordan Fontana S - 05/01/18 11:38> Results - Labs Result diagrams: 05/01/18 04:23 05/01/18 04:23 <ChinoRoxanna Ad - 05/01/18 13:38> Abnormal lab results 04/30/18 04/30/18 05/01/18 Range/Units 17:23 20:26 04:22 [place] % (Auto) (0.0-8.0) % Eos % (Auto) (0.0-4.0) % Chloride (98-107) meq/L Estimated GFR (>89) mL/min POC Glucose 130 H 144 H 113 H (68-110) mg/dl Random Glucose (74-106) mg/dL Calcium (8.5-10.1) mg/dL Total Protein (6.4-8.2) g/dL Albumin (3.4-5.0) g/dL Prealbumin (20-40) mg/dL 05/01/18 05/01/18 05/01/18 Range/Units 04:23 04:23 08:05 [place] % (Auto) 8.9 H (0.0-8.0) % Eos % (Auto) 4.7 H (0.0-4.0) % Chloride 110 H (98-107) meq/L Estimated GFR 77 L (>89) mL/min POC Glucose 121 H (68-110) mg/dl Random Glucose 122 H (74-106) mg/dL Calcium 7.8 L (8.5-10.1) mg/dL Total Protein 5.3 L (6.4-8.2) g/dL Albumin 2.2 L (3.4-5.0) g/dL Prealbumin 14 L (20-40) mg/dL Short CBC 05/01/18 Range/Units 04:23 WBC 9.0 (4.0-11.0) th/mm3 Hgb 12.9 (11.6-15.3) gm/dL Hct 37.7 (35.0-46.0) % Plt Count 196 (150-450) th/mm3 BMP 05/01/18 04:23 Sodium 143 Potassium 3.8 Chloride 110 H Carbon Dioxide 26.5 BUN 15 Creatinine 0.75 Calcium 7.8 L Liver Function 05/01/18 Range/Units 04:23 Total Bilirubin 0.5 (0.2-1.0) mg/dL AST 29 (15-37) U/L ALT 14 (10-53) U/L Alkaline Phosphatase 77 (45-117) U/L Albumin 2.2 L (3.4-5.0) g/dL <Roxanna Magana - 05/01/18 13:38> Abnormal lab results 04/30/18 04/30/18 05/01/18 Range/Units 17:23 20:26 04:22 [place] % (Auto) (0.0-8.0) % Eos % (Auto) (0.0-4.0) % Chloride (98-107) meq/L Estimated GFR (>89) mL/min POC Glucose 130 H 144 H 113 H (68-110) mg/dl Random Glucose (74-106) mg/dL Calcium (8.5-10.1) mg/dL Total Protein (6.4-8.2) g/dL Albumin (3.4-5.0) g/dL Prealbumin (20-40) mg/dL 05/01/18 05/01/18 05/01/18 Range/Units 04:23 04:23 08:05 [place] % (Auto) 8.9 H (0.0-8.0) % Eos % (Auto) 4.7 H (0.0-4.0) % Chloride 110 H (98-107) meq/L Estimated GFR 77 L (>89) mL/min POC Glucose 121 H (68-110) mg/dl Random Glucose 122 H (74-106) mg/dL Calcium 7.8 L (8.5-10.1) mg/dL Total Protein 5.3 L (6.4-8.2) g/dL Albumin 2.2 L (3.4-5.0) g/dL Prealbumin 14 L (20-40) mg/dL Short CBC 05/01/18 Range/Units 04:23 WBC 9.0 (4.0-11.0) th/mm3 Hgb 12.9 (11.6-15.3) gm/dL Hct 37.7 (35.0-46.0) % Plt Count 196 (150-450) th/mm3 BMP 05/01/18 04:23 Sodium 143 Potassium 3.8 Chloride 110 H Carbon Dioxide 26.5 BUN 15 Creatinine 0.75 Calcium 7.8 L Liver Function 05/01/18 Range/Units 04:23 Total Bilirubin 0.5 (0.2-1.0) mg/dL AST 29 (15-37) U/L ALT 14 (10-53) U/L Alkaline Phosphatase 77 (45-117) U/L Albumin 2.2 L (3.4-5.0) g/dL <Brian TysonJordan S - 05/01/18 09:51> - Imaging Impressions Carotid Doppler Study 05/01/18 00:00 CONCLUSION: 1. Elevation of the peak systolic velocity of the left internal carotid artery suggesting 50-69% stenosis although the ICA/CCA ratio on the left suggests less than 50% stenosis. CTA of the carotids would be helpful to resolve these discordant findings. There is also elevation of the peak systolic velocity of the left external carotid artery in the 50-69% stenosis range. 2. Less than 50% stenosis involving the right internal carotid artery. 3. Moderate atherosclerotic plaque formation within the carotid bulbs and proximal internal carotid arteries. <Roxanna Magana - 05/01/18 13:38> Impressions Carotid Doppler Study 05/01/18 00:00 CONCLUSION: 1. Elevation of the peak systolic velocity of the left internal carotid artery suggesting 50-69% stenosis although the ICA/CCA ratio on the left suggests less than 50% stenosis. CTA of the carotids would be helpful to resolve these discordant findings. There is also elevation of the peak systolic velocity of the left external carotid artery in the 50-69% stenosis range. 2. Less than 50% stenosis involving the right internal carotid artery. 3. Moderate atherosclerotic plaque formation within the carotid bulbs and proximal internal carotid arteries. Head MRI 04/26/18 21:22 CONCLUSION: 1. Diffuse cerebral atrophy is noted. 2. Moderate to severe periventricular and subcortical white matter small vessel ischemic changes are noted bilaterally. 3. Old lacunar infarcts are noted within the left abraham radiata. 4. No acute infarct, acute hemorrhage, midline shift or extra-axial bleed is noted. 5. No abnormal enhancing mass lesion is noted. Head MRA 04/27/18 13:41 CONCLUSION: 1. Negative MRA [place] ([place] [facility] [place]) non contrast. Head/Brain Mag Res Venography 04/27/18 13:42 CONCLUSION: 1. Negative MRV Brain non contrast. <Torres R3,Jordan S - 05/01/18 11:54> Physical Exam Vital signs: Vital Signs 04/30/18 14:00 04/30/18 14:30 04/30/18 15:00 Temperature Pulse Rate 60 60 62 Respiratory Rate 24 24 24 Blood Pressure 122/62 136/61 138/59 L Pulse Oximetry 93 L 93 L 92 L 04/30/18 15:30 04/30/18 16:00 04/30/18 16:30 Temperature 98.2 F Pulse Rate 62 58 L 60 Respiratory Rate 26 H 24 26 H Blood Pressure 126/62 111/58 L 114/58 L Pulse Oximetry 91 L 93 L 91 L 04/30/18 17:00 04/30/18 17:30 04/30/18 18:00 Temperature Pulse Rate 67 59 L 57 L Respiratory Rate 24 24 24 Blood Pressure 129/65 130/59 L 142/65 H Pulse Oximetry 90 L 91 L 92 L 04/30/18 18:30 04/30/18 19:00 04/30/18 19:30 Temperature Pulse Rate 59 L 57 L 57 L Respiratory Rate 24 26 H 26 H Blood Pressure 132/63 143/69 H 152/67 H Pulse Oximetry 92 L 92 L 92 L 04/30/18 20:00 04/30/18 22:00 04/30/18 23:45 Temperature 98.3 F 98.2 F Pulse Rate 58 L 61 59 L Respiratory Rate 25 H 14 Blood Pressure 149/67 H 149/70 H Pulse Oximetry 90 L 95 05/01/18 00:00 05/01/18 02:00 05/01/18 04:00 Temperature 98.3 F Pulse Rate 56 L 58 L 56 L Respiratory Rate 14 Blood Pressure 137/65 Pulse Oximetry 95 05/01/18 06:00 05/01/18 08:00 05/01/18 10:00 Temperature 98.6 F Pulse Rate 60 60 59 L Respiratory Rate 18 Blood Pressure 202/82 H 196/82 H Pulse Oximetry 95 05/01/18 10:10 05/01/18 10:20 05/01/18 10:30 Temperature Pulse Rate Respiratory Rate Blood Pressure 187/79 H 140/65 138/65 Pulse Oximetry 05/01/18 10:40 05/01/18 10:50 05/01/18 11:00 Temperature Pulse Rate Respiratory Rate Blood Pressure 140/62 132/61 130/59 L Pulse Oximetry Intake & Output 04/30/18 05/01/18 05/01/18 18:59 06:59 18:59 Intake Total 100 / 100 1200 / 1200 500 / 500 Output Total 50 / 50 Balance 100 / 100 1150 / 1150 500 / 500 Weight 58.2 kg 61.6 kg Intake: IV 100 / 100 1100 / 1100 500 / 500 NS + KCl 20 mEq Inj 1,000 ML @ 1000 / 1000 500 / 500 100 mls/hr IV.CONT .Q10H [facility] Rx #:[id number] Keppra 1000 mg/100 mL Premix 100 / 100 100 / 100 100 ML @ 400 mls/hr IV.SIG Q12H YUKO Rx#:[id number] Oral 100 / 100 Output: Urine 50 / 50 Other: # Incontinent Voids 4 2 Weight On Admission 58.2 kg <Roxanna Magana M - 05/01/18 13:38> Vital Signs 04/30/18 14:00 04/30/18 14:30 04/30/18 15:00 Temperature Pulse Rate 60 60 62 Respiratory Rate 24 24 24 Blood Pressure 122/62 136/61 138/59 L Pulse Oximetry 93 L 93 L 92 L 04/30/18 15:30 04/30/18 16:00 04/30/18 16:30 Temperature 98.2 F Pulse Rate 62 58 L 60 Respiratory Rate 26 H 24 26 H Blood Pressure 126/62 111/58 L 114/58 L Pulse Oximetry 91 L 93 L 91 L 04/30/18 17:00 04/30/18 17:30 04/30/18 18:00 Temperature Pulse Rate 67 59 L 57 L Respiratory Rate 24 24 24 Blood Pressure 129/65 130/59 L 142/65 H Pulse Oximetry 90 L 91 L 92 L 04/30/18 18:30 04/30/18 19:00 04/30/18 19:30 Temperature Pulse Rate 59 L 57 L 57 L Respiratory Rate 24 26 H 26 H Blood Pressure 132/63 143/69 H 152/67 H Pulse Oximetry 92 L 92 L 92 L 04/30/18 20:00 04/30/18 22:00 04/30/18 23:45 Temperature 98.3 F 98.2 F Pulse Rate 58 L 61 59 L Respiratory Rate 25 H 14 Blood Pressure 149/67 H 149/70 H Pulse Oximetry 90 L 95 05/01/18 00:00 05/01/18 02:00 05/01/18 04:00 Temperature 98.3 F Pulse Rate 56 L 58 L 56 L Respiratory Rate 14 Blood Pressure 137/65 Pulse Oximetry 95 05/01/18 06:00 Temperature Pulse Rate 60 Respiratory Rate Blood Pressure Pulse Oximetry Intake & Output 04/30/18 05/01/18 05/01/18 18:59 06:59 18:59 Intake Total 100 / 100 1200 / 1200 500 / 500 Output Total 50 / 50 Balance 100 / 100 1150 / 1150 500 / 500 Weight 58.2 kg 61.6 kg Intake: IV 100 / 100 1100 / 1100 500 / 500 NS + KCl 20 mEq Inj 1,000 ML @ 1000 / 1000 500 / 500 100 mls/hr IV.CONT .Q10H [facility] Rx #:[id number] Keppra 1000 mg/100 mL Premix 100 / 100 100 / 100 100 ML @ 400 mls/hr IV.SIG Q12H [facility]UKO Rx#:[id number] Oral 100 / 100 Output: Urine 50 / 50 Other: # Incontinent Voids 4 2 Weight On Admission 58.2 kg <TorresJordan Fontana S - 05/01/18 09:51> - Constitutional no acute distress, average body habitus <Torres R3Jordan S - 05/01/18 11:54> - Routine HEENT Exam Head: Present: normocephalic, atraumatic <Torres R3Jordan S - 05/01/18 11:54> ENT: Present: mucous membranes dry <Torres R3Jordan S - 05/01/18 11:54> - Routine Neck Exam Present: supple <Torres R3Jordan S - 05/01/18 11:54> - Routine Respiratory Exam Present: CTA bilaterally. Absent: accessory muscle use, wheezes, crackles < Torres R3Jordan S - 05/01/18 11:54> - Routine Cardiovascular Exam Present: RRR, S1, S2. Absent: murmur <Torres Jah,Jordan S 05/01/18 11:54> - Routine Abdominal Exam Present: soft. Absent: tenderness <Torres R3,Jordan S 05/01/18 11:54> - Routine Extremities Exam Absent: cyanosis, edema <Torres R3,Jordan S 05/01/18 11:54> Comments: s/p RLE above knee amputation. RUE flaccid, good radial pulse <Torres R3,Jordan S 05/01/18 11:54> - Routine Neurological Exam Present: alert. Absent: oriented X3 (unable to assess) <Jordan Schrader 05/01/18 11:54> Does not move RUE or RLE, moves LLE and LUE occasionally; neurologic assessment difficult due to mental state (intermittently responds to commands) <Torres Jah,Jordan 05/01/18 11:54> Assessment and Plan - Assessment (1) Catatonia associated with another mental disorder Code(s): F06.1 - Catatonic disorder due to known physiological condition Status: Acute (2) PRES (posterior reversible encephalopathy syndrome) Code(s): I67.83 - Posterior reversible encephalopathy syndrome Status: Acute (3) HTN (hypertension) Code(s): I10 - Essential (primary) hypertension Status: Acute (4) Seizures Code(s): R56.9 - Unspecified convulsions Status: Acute (5) Hyperlipidemia Code(s): E78.5 - Hyperlipidemia, unspecified Status: Chronic (6) Diabetes Code(s): E11.9 - Type 2 diabetes mellitus without complications Status: Chronic (7) Clavicle fracture Code(s): S42.009A - Fracture of unspecified part of unspecified clavicle, initial encounter for closed fracture Status: Acute (8) Nutrition, metabolism, and development symptoms Code(s): R63.8 - Other symptoms and signs concerning food and fluid intake Status: Acute <Roxanna Magana M - 05/01/18 13:38> (1) Catatonia associated with another mental disorder Code(s): F06.1 - Catatonic disorder due to known physiological condition Status: Acute (2) PRES (posterior reversible encephalopathy syndrome) Code(s): I67.83 - Posterior reversible encephalopathy syndrome Status: Acute (3) HTN (hypertension) Code(s): I10 - Essential (primary) hypertension Status: Acute (4) Seizures Code(s): R56.9 - Unspecified convulsions Status: Acute (5) Hyperlipidemia Code(s): E78.5 - Hyperlipidemia, unspecified Status: Chronic (6) Diabetes Code(s): E11.9 - Type 2 diabetes mellitus without complications Status: Chronic (7) Clavicle fracture Code(s): S42.009A - Fracture of unspecified part of unspecified clavicle, initial encounter for closed fracture Status: Acute (8) Nutrition, metabolism, and development symptoms Code(s): R63.8 - Other symptoms and signs concerning food and fluid intake Status: Acute <Torres R3Jordan S - 05/01/18 11:43> - Assessment and Plan 68 yo female with dementia, HTN, DM admitted with: Catatonia Medical work-up has been negative except for PRES. Given that her altered mental status preceded her hypertension it is likely that the root cause of her altered mental state is catatonia. She does have a component of PRES by MRI but this is most likely due to hypertension caused by catatonia rather than primary hypertension leading to encephalopathy. Mental status improves with Ativan however effect only lasts for about 30 min per nursing and MD observations. No dysautonomia except for the hypertension. CBC and CK within normal limits; no signs of NMS ABG essentially normal Ammonia very slightly elevated, unlikely to be etiology of her mental status LATONYA screen positive, titer pending RF negative RPR negative ESR normal * Continue Lexapro and Seroquel * Per psychiatrist recommendation continue Ativan 2 mg IV Q6H (mental status improves with Ativan); hold for sedation or bradycardia or apnea * Discussed case with psychiatry Dr. Acosta, appreciate assistance * Only treatment likely to improve her depression/catatonia is ECT - Dr. Acosta to discuss with case assistant to make arrangements to transfer her to a facility that performs ECT. Primary team to assist as needed with transfer process. * Manage hypertension as noted below PRES MRI findings suggestive of PRES * Neurology following, appreciate assistance * Control BP as below Hypertension BP still intermittently elevated likely related to catatonia Difficulty taking PO meds due to fluctuating mental status * Due to PRES needs tighter BP control per neurology: goal SBP 110-120 * Continue lisinopril 20 mg daily while able to take PO * Discontinue PO amlodipine, HCTZ, clonidine, hydralazine * Clonidine needs to be weaned to prevent rebound hypertension: apply 0.1 mg/d patch, leave on until it falls off, min 10 days * Start nicardipine drip titrated to target BP < 120/90 Seizure Disorder Now with possible repeat seizure vs (more likely) catalepsy from catatonia EEG with nonspecific encephalopathy Keppra level was low MRI/MRA unremarkable except for PRES as noted * Consulted neurology, appreciate assistance * Continue Keppra to 1000 mg IV BID * Control BP as part of PRES management * Recommended lumbar puncture, scheduled for today * Treat catatonia as above Clavicle Fracture, right Stable, RUE neurovascularly intact * Consulted orthotech for sling placement for comfort * Pain control with PO Tylenol and [place] PRN Diabetes mellitus BG at hospital goal now * Check sugar AC/HS * Holding metformin for now * Low dose SSI Hyperlipidemia * Continue home atorvastatin Fluids: IV NS + 20 mEq/L KCl at 100 CC/HR Diet: Pureed as tolerated, Ensure shakes/pudding ad aisha for caloric support * Nutritional status has been poor for last > 1 week, not eating much * Place NG tube * Start Glucerna at initial rate of 20 cc/hr * Consult to back feeder plywood layup line for further recommendation on feedings / nutritional support until her mental status improves DVT: Lovenox 40 mg SQ daily, to be held today for LP, resume 05/02 Continue PT to do ROM <Jordan Schrader S - 05/01/18 11:54> Discussed Condition With: Dr. Acosta <Jordan Schrdaer S - 05/01/18 11:54> Discharge Planning: Needs ECT, Psychiatry and primary team working to arrange, appreciate assistance of case management <Jordan Schrader S - 05/01/18 11:54> - Attending Attestation The exam, history, and the medical decision-making described in the above note were completed with the assistance of the resident physician. I reviewed and agree with the findings presented. I attest that I had a [id number] encounter with the patient on the same day, and personally performed and documented my assessment and findings in the medical record. now we have a better indication of exactly where her BP needs to be. she is hopefully going for ECT very soon. She needs a leather parts matcher to agree evidently as she is Hdez acted. She is difficult to get to eat anything or take her pills most of the time. When she gets ativan she typically wakes up for awhile and there is a window then when she can get her pills. However, I don't see her eating anything much at all. It has been too many days and she needs some nutrition so will start slow on an NG tube to temporize until she can get her ECT when I expect her to wake up and start eating properly. <Roxanna Magana M - 05/01/18 13:38> <Jordan Schrader S - Last Filed: 05/01/18 11:43> (3) HTN (hypertension) Qualifiers: Hypertension type: other secondary hypertension Qualified Code(s): I15.8 - Other secondary hypertension (5) Hyperlipidemia Qualifiers: Hyperlipidemia type: pure hypercholesterolemia Qualified Code(s): E78.00 - Pure hypercholesterolemia, unspecified; E78.0 - Pure hypercholesterolemia (6) Diabetes Qualifiers: Diabetes mellitus type: type 2 Diabetes mellitus custodial insulin use: unspecified custodial insulin use status Diabetes mellitus complication status : with circulatory complication Diabetes mellitus complication detail: with peripheral angiopathy without gangrene Qualified Code(s): E11.51 - Type 2 diabetes mellitus with diabetic peripheral angiopathy without gangrene (7) Clavicle fracture Qualifiers: Encounter type: subsequent encounter Fracture type: closed Laterality: right <Roxanna Magana M - Last Filed: 05/01/18 13:38> (3) HTN (hypertension) Qualifiers: Hypertension type: other secondary hypertension Qualified Code(s): I15.8 - Other secondary hypertension (5) Hyperlipidemia Qualifiers: Hyperlipidemia type: pure hypercholesterolemia Qualified Code(s): E78.00 - Pure hypercholesterolemia, unspecified; E78.0 - Pure hypercholesterolemia (6) Diabetes Qualifiers: Diabetes mellitus type: type 2 Diabetes mellitus custodial insulin use: unspecified custodial insulin use status Diabetes mellitus complication status : with circulatory complication Diabetes mellitus complication detail: with peripheral angiopathy without gangrene Qualified Code(s): E11.51 - Type 2 diabetes mellitus with diabetic peripheral angiopathy without gangrene (7) Clavicle fracture Qualifiers: Encounter type: subsequent encounter Fracture type: closed Laterality: right <Brian TysonJordan S - Last Filed: 05/01/18 11:43> (3) HTN (hypertension) Qualifiers: Hypertension type: other secondary hypertension Qualified Code(s): I15.8 - Other secondary hypertension (5) Hyperlipidemia Qualifiers: Hyperlipidemia type: pure hypercholesterolemia Qualified Code(s): E78.00 - Pure hypercholesterolemia, unspecified; E78.0 - Pure hypercholesterolemia (6) Diabetes Qualifiers: Diabetes mellitus type: type 2 Diabetes mellitus long chain beamer insulin use: unspecified custodial insulin use status Diabetes mellitus complication status : with circulatory complication Diabetes mellitus complication detail: with peripheral angiopathy without gangrene Qualified Code(s): E11.51 - Type 2 diabetes mellitus with diabetic peripheral angiopathy without gangrene (7) Clavicle fracture Qualifiers: Encounter type: subsequent encounter Fracture type: closed Laterality: right <ChinoRoxanna M - Last Filed: 05/01/18 13:38> (3) HTN (hypertension) Qualifiers: Hypertension type: other secondary hypertension Qualified Code(s): I15.8 - Other secondary hypertension (5) Hyperlipidemia Qualifiers: Hyperlipidemia type: pure hypercholesterolemia Qualified Code(s): E78.00 - Pure hypercholesterolemia, unspecified; E78.0 - Pure hypercholesterolemia (6) Diabetes Qualifiers: Diabetes mellitus type: type 2 Diabetes mellitus custodial insulin use: unspecified custodial insulin use status Diabetes mellitus complication status : with circulatory complication Diabetes mellitus complication detail: with peripheral angiopathy without gangrene Qualified Code(s): E11.51 - Type 2 diabetes mellitus with diabetic peripheral angiopathy without gangrene (7) Clavicle fracture Qualifiers: Encounter type: subsequent encounter Fracture type: closed Laterality: right
[2018-05-01] MEDS: niCARdipine Inj 25 MG in Sodium Chlor 0.9% Inj 240 ML IV.CONT PRN ×4 (10:13→23:12)
--- NOTE | 2018-05-01 11:01 | P.PNPSY ---
Subjective Remarks: May 01, 2018 Subjective: Patient seen in cardiac care. She apparently continues to have elevated blood pressure and is now refusing all medications. The patient had 2 mg of Ativan IM just hour before I saw her. She showed no improvement with the Ativan and her blood pressures continued to be necessarily controlled with IV medication. The patient's response to antipsychotropic is unlikely to make a difference and ECT appears to be the only reasonable choice at this point. I attempted to talk to the patient he seems to understand what I am saying but is unable to react because of such incredibly slowed psychomotor activity. Today she was unable to squeeze my hand as a way of communicating.. She could understand command but it offered no verbal or other motor responses Patient was discussed with the hospitalist team and with the nursing staff. Patient will also be discussed with social work manager to make arrangements for transfer to a treatment facility that offers ECT. Mental Status Examination Orientation: Person, Place, Situation (Patient does realize her situation is becoming critical, but is now refusing oral medication) Motor Activity: Other (Severe psychomotor retardation) Speech: Other (No verbalization) Fund of Knowledge: Adequate (Unknown) Attention and Concentration: Adequate (At times) Mood: Sad (Catatonic) Affect: Sad, Flat Thought Process & Associations: Intact (Untestable) Assessment and Plan - Plan Plan: Estimated LOS: [] days 05/01/2018 Begin process of transfer for ECT to appropriate facility. Justification for Continued Inpatient Stay: Patient transferred to ICU for malignant hypertension and inability to except p.o. meds.
[2018-05-01 14:06] LABS: Hematocrit 40.8 % (35.0-46.0); Hemoglobin 13.8 gm/dL (11.6-15.3); Mean Corpuscular HGB Conc 33.9 % (32.0-36.0); Mean Corpuscular Hemoglobin 31.5 pg (27.0-34.0); Mean Corpuscular Volume 92.8 fL (80.0-100.0); Mean Platelet Volume 9.5 fL (7.0-11.0); Platelet Count 219 th/mm3 (150-450); Red Blood Count 4.39 mil/mm3 (4.00-5.30); White Blood Count 9.5 th/mm3 (4.0-11.0)
[2018-05-01 14:20] LABS: Activated Partial Thrombo Time 27.8 sec (23.4-31.7); INR 1.5 Ratio; Prothrombin Time 14.7 sec (9.8-11.6)
--- NOTE | 2018-05-01 15:57 | P.DIET ---
Nutritional Evaluation Type of nutrition evaluation: initial Nutrition consult regarding: Tube Feeding [place] [facility] Screening comments: 05[place]01 [facility] [place] 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%) Body Mass Index: 23.3 % IBW: 113 (IBW = 106lb (-12%)) Body Weight Used for Calculations: Actual (61.6kg) Energy Needs - Lower Range (kCal/kg): 25 Energy Needs - Upper Range (kCal/kg): 30 Lower Limit kCal/kg (kCals): 1,540 Upper Limit kCal/kg (kCals): 1,848 Lower Limit Protein Factor (Grams per Kg): 1.2 Upper Limit Protein Factor (Grams per Kg): 1.4 Lower Protein Needs (Protein): 74 Upper Protein Needs (Protein): 86 Dietitian Reviewed in Medical Record: Curent medications, Intake & Output, Labs , Medical history, Tube feeding Diet Order: TF'ing w/ 1200 ADA tray Objective Comments: PMH: dementia, DM, high cholesterol, hx of stroke, HTN, non-hodgkin lymphoma, AKA R lower extremity Meds: novolin insulin sliding scale, thiamine Labs: POC glucose 144 121 Assessment Assessment: Pt currently at nutritional risk r/t AMS and need for TF'ing. Pt currently on Glucerna @ 60mL/hr via NGT w/ [address] to recommend decreasing TF to Glucerna 1.5 @ 45mL/hr to provide 1620kcal, 89g of protein, and 820mL of free water to best meet pts assessed needs. Will continue to monitor TF tolerance, glucose labs. Labs reviewed, dietitian following. Recommendations: 1. RD to recommend decreasing TF to Glucerna 1.5 @ 45mL/hr to best meet pts assessed needs 2. Will continue to monitor TF tolerance, glucose labs 3. Dietitian following Dietitian to Monitor: Lab values, Glucose level, Intake & Output, Tube feeding tolerance, Weight change, PO Intake, Swallow recommendations, Medical course
--- NOTE | 2018-05-01 16:07 | ECHRPT ---
Indication: CVA/TIA CONCLUSIONS Normal left ventricular size. Wall thickness is measured at the upper limits of normal. The left ventricular systolic function is normal with an estimated ejection fraction in the range of 55-60%. Trace mitral valve regurgitation. There is a small pericardial effusion present. BP: 147 / 69 HR: 72 Rhythm: MEASUREMENTS (Male / Female) Normal Values Technical Quality: 2D ECHO LV Diastolic Diameter PLAX 4.0 cm 4.2 - 5.9 / 3.9 - 5.3 cm LV Systolic Diameter PLAX 2.3 cm IVS Diastolic Thickness 0.9 cm 0.6 - 1.0 / 0.6 - 0.9 cm LVPW Diastolic Thickness 1.0 cm 0.6 - 1.0 / 0.6 - 0.9 cm LV Relative Wall Thickness 0.5 RV Internal Dim ED PLAX 2.1 cm LVOT Diameter 1.9 cm Aortic Root Diameter 2.6 cm LA Systolic Diameter LX 3.0 cm 3.0 - 4.0 / 2.7 - 3.8 cm DOPPLER AV Peak Velocity 181.5 cm/s AV Peak Gradient 13.2 mmHg AV Mean Gradient 5.0 mmHg AV Velocity Time Integral 28.4 cm LVOT Peak Velocity 142.0 cm/s LVOT Peak Gradient 8.1 mmHg AV Area Cont Eq pk 2.2 cm Mitral E Point Velocity 99.2 cm/s Mitral A Point Velocity 137.0 cm/s Mitral E to A Ratio 0.7 LV E' Lateral Velocity 5.3 cm/s Mitral E to LV E' Lateral Ratio 18.9 LV E' Septal Velocity 4.3 cm/s Mitral E to LV E' Septal Ratio 23.1 TR Peak Velocity 132.0 cm/s TR Peak Gradient 7.0 mmHg Right Atrial Pressure 10.0 mmHg Pulmonary Artery Systolic Pressu 17.0 mmHg Right Ventricular Systolic Press 17.0 mmHg PV Peak Velocity 81.4 cm/s PV Peak Gradient 2.7 mmHg FINDINGS LEFT VENTRICLE Normal left ventricular size. Wall thickness is measured at the upper limits of normal. The left ventricular systolic function is normal with an estimated ejection fraction in the range of 55-60%. RIGHT VENTRICLE Normal right ventricular size and systolic function. LEFT ATRIUM The left atrial size is normal. RIGHT ATRIUM The right atrial size is normal. ATRIAL SEPTUM Normal atrial septal thickness without atrial level shunting by limited color doppler interrogation. AORTA The aortic root and proximal ascending aorta are normal in size on limited imaging. MITRAL VALVE Trace mitral valve regurgitation. AORTIC VALVE Trileaflet aortic valve. No aortic valve stenosis or regurgitation. TRICUSPID VALVE Structurally normal tricuspid valve. No tricuspid valve stenosis or regurgitation. PULMONARY VALVE The pulmonary valve is not well visualized. VESSELS The inferior vena cava is normal in size. PERICARDIUM There is a small pericardial effusion present. Guanaco Alegria MD, FACC (Electronically Signed) Final Date:01 May 2018 16:06
[2018-05-01] MEDS ORDERED: Gadobutrol PF 7.5 MMOL/7.5 ML Vial (for RAD) IV.SIG ONE (17:44)
--- NOTE | 2018-05-01 18:11 | MR ---
EXAM DATE: 05/01/2018 5:58 PM EST AGE/SEX: 68 years / Female INDICATIONS: . Leukoencephalopathy on prior scan and patient may have element of PRES as noted in prior notes CLINICAL DATA: This is the patient's subsequent encounter. Patient reports that signs and symptoms h ave been present for 1 day and indicates a pain score of Nonresponsive. MEDICAL/SURGICAL HISTORY: Diabetes mellitus type II. Dementia. Non-Hodgkin lymphoma. . Wrist sx, Rt BKA COMPARISON: [facility] [place], MR HEAD W & W/O CONTRAST, 04/26/2018. . TECHNIQUE: Multiplanar, multisequence examination of the brain was performed without and with 6 ml Ga davist (gadobutrol) contrast as a single exam dose. FINDINGS: This study is degraded by motion artifact. There is vasogenic edema seen involving the posterior aspects of the parietal lobes as well as the oc cipital lobes bilaterally. This is similar to the prior examination. Periventricular high FLAIR signa l abnormality also noted involving both cerebral hemispheres but most pronounced within the parietal lobes. This is unchanged. A small lacunar infarction involving the left abraham radiata. No hemorrhage . No acute infarction. Normal flow voids within the major intracranial vessels. Ventricles are normal in size. Orbital structures are normal. No abnormal enhancement following gadolinium. Mucosal thicke dillan without air-fluid levels involving anterior ethmoid air cells on the right. Remaining paranasal sinuses are clear. Fluid signal seen within the mastoid air cells bilaterally but more pronounced on the left. CONCLUSION: 1. Study degraded by motion artifact. 2. Vasogenic edema involving the parietal and occipital lobes bilaterally is stable. Although not sp ecific for this could relate to posterior reversible encephalopathy syndrome (PRES). 3. Atrophy. 4. Chronic small vessel ischemic change. Electronically signed by: Jayme Bernard MD Board Certified Radiologist 05/01/2018 6:10 PM EST
[2018-05-01] MEDS: Famotidine 20 MG Tablet NG/OG SCH (20:26)
[2018-05-02] MEDS: levETIRAcetam 1000mg/100mL Inj 100 ML IV.SIG SCH ×2 (01:00→12:43)
[2018-05-02] MEDS: niCARdipine Inj 25 MG in Sodium Chlor 0.9% Inj 240 ML IV.CONT PRN ×10 (01:01→22:59)
[2018-05-02] MEDS: Insulin NovoLOG Aspart Correctional Sugar Inj SQ SCH ×5 (03:54→21:35)
[2018-05-02] MEDS: Chlorhexidine Gluconate 2% 1 Pack (2 Cloths) TOPICAL SCH (03:55)
--- NOTE | 2018-05-02 07:27 | P.PNNEU ---
Subjective Active Medications: Active Medications Acetaminophen (Tylenol Liq) 650 mg NG/OG Q6H PRN PRN Reason: PAIN 1-10 AND/OR FEVER >101F Al Hydroxide/Mg Hydroxide (Milk Of Magnesia Liq) 30 ml PO Q12H PRN PRN Reason: Mild Constipation Aspirin (Aspirin Chew) 81 mg NG/OG DAILY [facility], [facility] Atorvastatin Calcium (Lipitor) 40 mg NG/OG HS [facility], [facility] Last Admin: 05/01/18 20:26 Dose: 40 mg Bisacodyl (Dulcolax Supp) 10 mg RECTAL DAILY PRN PRN Reason: SEVERE CONSITIPATION Chlorhexidine Gluconate (Chlorhexidine 2% Cloth) 3 pack TOPICAL DAILY@0400 [facility], [facility]1983 Stop: 05/06/18 03:59 Last Admin: 05/02/18 03:55 Dose: 3 pack Chlorhexidine Gluconate (Chlorhexidine 2% Cloth) 3 pack TOPICAL DAILY@0400 PRN PRN Reason: Extra cloth needed Stop: 05/06/18 03:59 Dextrose (D50w Vial) 50 ml IV.PUSH UNSCH PRN PRN Reason: PER HYPOGLYCEMIA PROTOCOL Dextrose (D50w Vial) 50 ml IV.PUSH UNSCH PRN PRN Reason: PER HYPOGLYCEMIA PROTOCOL Escitalopram Oxalate (Lexapro) 20 mg NG/OG DAILY [facility], [facility] Famotidine (Pepcid) 20 mg NG/OG BID [facility], [facility] Last Admin: 05/01/18 20:26 Dose: 20 mg Gabapentin (Neurontin) 600 mg PO BID [facility] Last Admin: 05/01/18 08:56 Dose: Not Given Glucagon (Glucagon Inj) 1 mg OTHER PRN PRN PRN Reason: for Hypoglycemia Protocol Potassium Chloride/Sodium Chloride (Ns + Kcl 20 Meq Inj) 1,000 mls @ 100 mls/ hr IV.CONT .Q10H [facility] Last Admin: 05/02/18 04:53 Dose: Not Given Levetiracetam (Keppra 1000 Mg/100 Ml Premix) 100 mls @ 400 mls/hr IV.SIG Q12H [facility] Last Infusion: 05/02/18 01:45 Dose: Infused Nicardipine HCl 25 mg/ Sodium (Chloride) 250 mls @ 50 mls/hr IV.CONT TITRATE PRN; Protocol PRN Reason: Per Protocol Last Admin: 05/02/18 06:10 Dose: 7.5 mg/hr, 75 mls/hr Insulin Aspart (Novolog Insulin Correctional Sugar Inj) 0 unit SQ ACHS AND 3AM YUKO; Protocol Last Admin: 05/02/18 03:54 Dose: Not Given Lactulose (Lactulose Liq) 30 ml PO DAILY PRN PRN Reason: SEVERE CONSITIPATION Lisinopril (Prinivil) 20 mg PO DAILY [facility] Last Admin: 05/01/18 08:57 Dose: Not Given Lorazepam (Ativan Inj) 2 mg IV.PUSH Q6H [facility] Last Admin: 05/02/18 01:00 Dose: 2 mg Patch Removal (Remove Old Patch) 1 each T-DERMAL Q7D [facility] Stop: 05/08/18 09:01 Last Admin: 05/01/18 15:08 Dose: 1 each Senna/Docusate Sodium (Aleah-Colace) 1 tab PO BID [facility] Last Admin: 05/01/18 20:26 Dose: 1 tab Sennosides (Senokot) 17.2 mg PO Q12H PRN PRN Reason: Moderate Constipation Sodium Chloride (Ns Flush) 2 ml IV.FLUSH BID [facility] Last Admin: 05/01/18 20:26 Dose: 2 ml Sodium Chloride (Ns Flush) 2 ml IV.FLUSH UNSCH PRN PRN Reason: FLUSH AFTER USING IV ACCESS Thiamine HCl (Thiamine Inj) 100 mg IM DAILY [facility] Last Admin: 05/01/18 08:20 Dose: 100 mg Allergies/Adverse Reactions: Allergies Allergy/AdvReac Type Severity Reaction Status Date / Time iodine Allergy Swelling Verified 04/19/18 15:50 Physical Exam Vital signs: Vital Signs 05/01/18 08:00 05/01/18 10:00 05/01/18 10:10 Temperature 98.6 F Pulse Rate 60 59 L Respiratory Rate 18 Blood Pressure 202/82 H 196/82 H 187/79 H Pulse Oximetry 95 05/01/18 10:20 05/01/18 10:30 05/01/18 10:40 Temperature Pulse Rate Respiratory Rate Blood Pressure 140/65 138/65 140/62 Pulse Oximetry 05/01/18 10:50 05/01/18 11:00 05/01/18 12:00 Temperature Pulse Rate 67 Respiratory Rate 16 Blood Pressure 132/61 130/59 L 132/63 Pulse Oximetry 05/01/18 16:00 05/01/18 19:24 05/01/18 19:30 Temperature Pulse Rate 79 89 84 Respiratory Rate 18 22 23 Blood Pressure 140/61 150/67 H Pulse Oximetry 94 L 94 L 05/01/18 19:40 05/01/18 19:50 05/01/18 20:00 Temperature Pulse Rate 86 83 83 Respiratory Rate 26 H 26 H 27 H Blood Pressure 144/66 H 144/67 H 150/69 H Pulse Oximetry 94 L 92 L 92 L 05/01/18 20:10 05/01/18 20:20 05/01/18 20:30 Temperature Pulse Rate 85 84 83 Respiratory Rate 31 H 32 H 38 H Blood Pressure 146/65 H 138/63 136/63 Pulse Oximetry 94 L 93 L 92 L 05/01/18 20:40 05/01/18 20:50 05/01/18 21:00 Temperature Pulse Rate 83 82 87 Respiratory Rate 23 33 H 33 H Blood Pressure 141/65 H 141/66 H 158/72 H Pulse Oximetry 94 L 94 L 95 05/01/18 21:10 05/01/18 21:18 05/01/18 21:20 Temperature Pulse Rate 90 80 81 Respiratory Rate 28 H 46 H 40 H Blood Pressure 166/79 H 138/59 L 131/65 Pulse Oximetry 95 93 L 94 L 05/01/18 21:30 05/01/18 21:40 05/01/18 22:00 Temperature Pulse Rate 84 81 86 Respiratory Rate 26 H 28 H 26 H Blood Pressure 140/61 122/60 Pulse Oximetry 95 95 93 L 05/01/18 22:09 05/01/18 22:10 05/01/18 22:25 Temperature Pulse Rate 85 85 80 Respiratory Rate 52 H 38 H 22 Blood Pressure 125/59 L 128/57 L 118/56 L Pulse Oximetry 93 L 92 L 91 L 05/01/18 22:30 05/01/18 22:40 05/01/18 22:50 Temperature Pulse Rate 80 82 77 Respiratory Rate 21 27 H 25 H Blood Pressure 120/56 L 121/57 L 122/60 Pulse Oximetry 91 L 91 L 90 L 05/01/18 23:00 05/01/18 23:10 05/01/18 23:20 Temperature Pulse Rate 77 83 80 Respiratory Rate 21 27 H 27 H Blood Pressure 126/60 125/60 118/57 L Pulse Oximetry 95 95 95 05/01/18 23:50 05/02/18 00:00 05/02/18 00:30 Temperature 98.4 F Pulse Rate 79 80 79 Respiratory Rate 23 39 H 31 H Blood Pressure 121/60 127/61 128/84 Pulse Oximetry 95 96 95 05/02/18 01:00 05/02/18 01:30 05/02/18 02:00 Temperature Pulse Rate 85 87 91 H Respiratory Rate 47 H 36 H 37 H Blood Pressure 136/64 135/60 134/65 Pulse Oximetry 96 95 95 05/02/18 02:15 05/02/18 02:30 05/02/18 02:45 Temperature Pulse Rate 82 74 84 Respiratory Rate 47 H 47 H 40 H Blood Pressure 126/60 110/57 L 122/57 L Pulse Oximetry 94 L 94 L 95 05/02/18 03:00 05/02/18 03:15 05/02/18 03:49 Temperature Pulse Rate 74 80 75 Respiratory Rate 40 H 55 H 24 Blood Pressure 121/59 L 124/60 126/60 Pulse Oximetry 95 94 L 94 L 05/02/18 04:00 05/02/18 04:15 05/02/18 04:29 Temperature 98.2 F Pulse Rate 79 76 Respiratory Rate 24 26 H Blood Pressure 120/59 L 118/58 L Pulse Oximetry 95 94 L 95 05/02/18 04:30 05/02/18 06:00 Temperature Pulse Rate 82 Respiratory Rate Blood Pressure Pulse Oximetry 94 L Intake & Output 05/01/18 05/02/18 05/02/18 18:59 06:59 18:59 Intake Total 1350 / 1350 3024 / 3024 Output Total 1200 / 1200 Balance 1350 / 1350 1824 / 1824 Weight 61 kg Intake: IV 1350 / 1350 2350 / 2350 NS + KCl 20 mEq Inj 1,000 ML @ 1000 / 1000 1000 / 1000 100 mls/hr IV.CONT .Q10H YUKO Rx #:[id number] Cardene Inj 25 MG In NS Inj 240 250 / 250 1250 / 1250 ML @ 5 MG/HR 50 mls/hr IV.CONT TITRATE PRN Rx#:[id number] Keppra 1000 mg/100 mL Premix 100 / 100 100 / 100 100 ML @ 400 mls/hr IV.SIG Q12H YUKO Rx#:[id number] Tube Feeding 374 / 374 Water Bolus Amount 300 / 300 Output: Urine 1200 / 1200 Other: # Voids 4 Date of Last Bowel Movement 05/02/18 # Bowel Movements 2 Narrative: said fabiana slow to answer wiggled toes for me Objective Laboratory Results - last 24 hr 05/01/18 05/01/18 05/01/18 08:05 13:50 13:50 WBC 9.5 RBC 4.39 Hgb 13.8 Hct 40.8 MCV 92.8 MCH 31.5 MCHC 33.9 RDW 14.0 Plt Count 219 MPV 9.5 PT 14.7 H INR 1.5 APTT 27.8 POC Glucose 121 H 05/01/18 05/01/18 05/02/18 18:14 20:23 06:27 WBC RBC Hgb Hct MCV MCH MCHC RDW Plt Count MPV PT INR APTT POC Glucose 94 107 139 H Review/Management - Diagnosis (1) Hypertensive encephalopathy Code(s): I67.4 - Hypertensive encephalopathy Status: Acute Current Visit: Yes (2) HTN (hypertension) Code(s): I10 - Essential (primary) hypertension Status: Acute Current Visit : No (3) Dementia Code(s): F03.90 - Unspecified dementia without behavioral disturbance Status: Acute Current Visit: No (4) Seizures Code(s): R56.9 - Unspecified convulsions Status: Acute Current Visit: No (5) Anxiety Code(s): F41.9 - Anxiety disorder, unspecified Status: Acute Current Visit: No - Review/Management Plan: 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 may have element of PRES as noted in prior notes recs check csf studies-pending bp control Thiamine supplementation follow exam Dr. Mehta to follow in a.m. 05/01/18 mri loops like PRES mra and mrv and labs all neg keep bp 110-120/ LP today eeg neg on keppra --------- 05/02/18 looks a little better mri repeat yest no change pres bp better keep 110-120/ await LP needs done today!! on keppra (2) HTN (hypertension) Qualifiers: Hypertension type: other secondary hypertension Qualified Code(s): I15.8 - Other secondary hypertension
[2018-05-02] MEDS: Famotidine 20 MG Tablet NG/OG SCH ×2 (07:59→20:24)
[2018-05-02] MEDS: Senna/Docusate Sodium 8.6/50 MG Tablet PO SCH ×2 (08:00→21:11)
--- NOTE | 2018-05-02 08:52 | P.PNADD ---
Addendum to Inpatient Note Reason for Addendum: Additional Documentation Additional information: Per neurology recommendation, LP is medically necessary for diagnostic evaluation and course of treatment.
[2018-05-02] MEDS ORDERED: hydrALAZINE 10 MG Tablet NG/OG PRN (09:00)
[2018-05-02] MEDS ORDERED: Fenofibrate 145 MG Tablet PO SCH (09:00)
[2018-05-02 09:03] LABS: Hematocrit 39.8 % (35.0-46.0); Hemoglobin 13.6 gm/dL (11.6-15.3); Mean Corpuscular HGB Conc 34.3 % (32.0-36.0); Mean Corpuscular Hemoglobin 31.3 pg (27.0-34.0); Mean Corpuscular Volume 91.3 fL (80.0-100.0); Mean Platelet Volume 9.8 fL (7.0-11.0); Platelet Count 255 th/mm3 (150-450); Red Blood Count 4.36 mil/mm3 (4.00-5.30); Red Cell Distribution Width 14.1 % (11.6-17.2)
[2018-05-02 09:28] LABS: Albumin 2.4 g/dL (3.4-5.0); Anion Gap 9 meq/L (5-15); Aspartate Aminotransferase 37 U/L (15-37); Blood Urea Nitrogen 14 mg/dL (7-18); Carbon Dioxide 23.1 meq/L (21.0-32.0); Chloride 111 meq/L (98-107); Glomerular Filtration Rate 82 mL/min (>89); Glucose,Random 169 mg/dL (74-106); Sodium 143 meq/L (136-145)
[2018-05-02 09:33] LABS: Alanine Aminotransferase 18 U/L (10-53); Alkaline Phosphatase 91 U/L (45-117); Total Protein 5.7 g/dL (6.4-8.2)
--- NOTE | 2018-05-02 11:02 | P.PNFP ---
Subjective Interval history: Ms Pedroza has had very labile BPs. At times her BPs are low and she barely needed her nicardipine drip but then she gets "maxed out" on her BP meds as her pressures are very high. She is still quite unresponsive as far as spontaneous activity. She does not speak in sentences and at best gives a one word answer. there has been difficulty in reaching her daughter. yesterday her daughter was called multiple times to get consent for the LP plus at other times, she has been difficult to reach as there is just one phone number. She will be able to have ECT only when Neurology feels she is ready. Results - Labs Result diagrams: 05/02/18 08:28 05/02/18 08:28 Abnormal lab results 05/01/18 05/02/18 05/02/18 Range/Units 13:50 06:27 07:43 WBC (4.0-11.0) th/mm3 PT 14.7 H (9.8-11.6) sec Chloride (98-107) meq/L Estimated GFR (>89) mL/min POC Glucose 139 H 152 H (68-110) mg/dl Random Glucose (74-106) mg/dL Calcium (8.5-10.1) mg/dL Total Protein (6.4-8.2) g/dL Albumin (3.4-5.0) g/dL 05/02/18 05/02/18 Range/Units 08:28 08:28 WBC 12.0 H (4.0-11.0) th/mm3 PT (9.8-11.6) sec Chloride 111 H (98-107) meq/L Estimated GFR 82 L (>89) mL/min POC Glucose (68-110) mg/dl Random Glucose 169 H (74-106) mg/dL Calcium 8.0 L (8.5-10.1) mg/dL Total Protein 5.7 L (6.4-8.2) g/dL Albumin 2.4 L (3.4-5.0) g/dL Short CBC 05/01/18 05/02/18 Range/Units 13:50 08:28 WBC 9.5 12.0 H (4.0-11.0) th/mm3 Hgb 13.8 13.6 (11.6-15.3) gm/dL Hct 40.8 39.8 (35.0-46.0) % Plt Count 219 255 (150-450) th/mm3 BMP 05/02/18 08:28 Sodium 143 Potassium 4.0 Chloride 111 H Carbon Dioxide 23.1 BUN 14 Creatinine 0.71 Calcium 8.0 L Liver Function 05/02/18 Range/Units 08:28 Total Bilirubin 0.4 (0.2-1.0) mg/dL AST 37 (15-37) U/L ALT 18 (10-53) U/L Alkaline Phosphatase 91 (45-117) U/L Albumin 2.4 L (3.4-5.0) g/dL - Imaging Impressions Head MRI 05/01/18 19:26 There is vasogenic edema seen involving the posterior aspects of the parietal lobes as well as the occipital lobes bilaterally. This is similar to the prior examination. Periventricular high FLAIR signal abnormality also noted involving both cerebral hemispheres but most pronounced within the parietal lobes. This is unchanged. A small lacunar infarction involving the left abraham radiata. No hemorrhage. No acute infarction. Normal flow voids within the major intracranial vessels. Ventricles are normal in size. Orbital structures are normal. No abnormal enhancement following gadolinium. Mucosal thickening without air-fluid levels involving anterior ethmoid air cells on the right. Remaining paranasal sinuses are clear. Fluid signal seen within the mastoid air cells bilaterally but more pronounced on the left. CONCLUSION: 1. Study degraded by motion artifact. 2. Vasogenic edema involving the parietal and occipital lobes bilaterally is stable. Although not specific for this could relate to posterior reversible encephalopathy syndrome (PRES). 3. Atrophy. 4. Chronic small vessel ischemic change. Physical Exam Vital signs: Vital Signs 05/01/18 11:00 05/01/18 12:00 05/01/18 16:00 Temperature Pulse Rate 67 79 Respiratory Rate 16 18 Blood Pressure 130/59 L 132/63 140/61 Pulse Oximetry 05/01/18 19:24 05/01/18 19:30 05/01/18 19:40 Temperature Pulse Rate 89 84 86 Respiratory Rate 22 23 26 H Blood Pressure 150/67 H 144/66 H Pulse Oximetry 94 L 94 L 94 L 05/01/18 19:50 05/01/18 20:00 05/01/18 20:10 Temperature Pulse Rate 83 83 85 Respiratory Rate 26 H 27 H 31 H Blood Pressure 144/67 H 150/69 H 146/65 H Pulse Oximetry 92 L 92 L 94 L 05/01/18 20:20 05/01/18 20:30 05/01/18 20:40 Temperature Pulse Rate 84 83 83 Respiratory Rate 32 H 38 H 23 Blood Pressure 138/63 136/63 141/65 H Pulse Oximetry 93 L 92 L 94 L 05/01/18 20:50 05/01/18 21:00 05/01/18 21:10 Temperature Pulse Rate 82 87 90 Respiratory Rate 33 H 33 H 28 H Blood Pressure 141/66 H 158/72 H 166/79 H Pulse Oximetry 94 L 95 95 05/01/18 21:18 05/01/18 21:20 05/01/18 21:30 Temperature Pulse Rate 80 81 84 Respiratory Rate 46 H 40 H 26 H Blood Pressure 138/59 L 131/65 140/61 Pulse Oximetry 93 L 94 L 95 05/01/18 21:40 05/01/18 22:00 05/01/18 22:09 Temperature Pulse Rate 81 86 85 Respiratory Rate 28 H 26 H 52 H Blood Pressure 122/60 125/59 L Pulse Oximetry 95 93 L 93 L 05/01/18 22:10 05/01/18 22:25 05/01/18 22:30 Temperature Pulse Rate 85 80 80 Respiratory Rate 38 H 22 21 Blood Pressure 128/57 L 118/56 L 120/56 L Pulse Oximetry 92 L 91 L 91 L 05/01/18 22:40 05/01/18 22:50 05/01/18 23:00 Temperature Pulse Rate 82 77 77 Respiratory Rate 27 H 25 H 21 Blood Pressure 121/57 L 122/60 126/60 Pulse Oximetry 91 L 90 L 95 05/01/18 23:10 05/01/18 23:20 05/01/18 23:50 Temperature Pulse Rate 83 80 79 Respiratory Rate 27 H 27 H 23 Blood Pressure 125/60 118/57 L 121/60 Pulse Oximetry 95 95 95 05/02/18 00:00 05/02/18 00:30 05/02/18 01:00 Temperature 98.4 F Pulse Rate 80 79 85 Respiratory Rate 39 H 31 H 47 H Blood Pressure 127/61 128/84 136/64 Pulse Oximetry 96 95 96 05/02/18 01:30 05/02/18 02:00 05/02/18 02:15 Temperature Pulse Rate 87 91 H 82 Respiratory Rate 36 H 37 H 47 H Blood Pressure 135/60 134/65 126/60 Pulse Oximetry 95 95 94 L 05/02/18 02:30 05/02/18 02:45 05/02/18 03:00 Temperature Pulse Rate 74 84 74 Respiratory Rate 47 H 40 H 40 H Blood Pressure 110/57 L 122/57 L 121/59 L Pulse Oximetry 94 L 95 95 05/02/18 03:15 05/02/18 03:49 05/02/18 04:00 Temperature 98.2 F Pulse Rate 80 75 79 Respiratory Rate 55 H 24 24 Blood Pressure 124/60 126/60 120/59 L Pulse Oximetry 94 L 94 L 95 05/02/18 04:15 05/02/18 04:29 05/02/18 04:30 Temperature Pulse Rate 76 Respiratory Rate 26 H Blood Pressure 118/58 L Pulse Oximetry 94 L 95 94 L 05/02/18 06:00 05/02/18 08:00 05/02/18 08:01 Temperature 97.8 F Pulse Rate 82 83 88 Respiratory Rate 43 H 46 H Blood Pressure 152/71 H 152/71 H Pulse Oximetry 97 96 05/02/18 08:05 05/02/18 08:10 05/02/18 08:15 Temperature Pulse Rate 80 81 87 Respiratory Rate 28 H 28 H 28 H Blood Pressure 122/55 L 115/58 L 143/66 H Pulse Oximetry 95 95 96 05/02/18 08:20 05/02/18 08:25 05/02/18 08:30 Temperature Pulse Rate 85 81 79 Respiratory Rate 36 H 29 H 27 H Blood Pressure 144/67 H 115/56 L 123/58 L Pulse Oximetry 95 94 L 95 05/02/18 08:35 05/02/18 08:40 05/02/18 08:45 Temperature Pulse Rate 77 73 74 Respiratory Rate 47 H 49 H 50 H Blood Pressure 127/56 L 119/58 L 117/58 L Pulse Oximetry 94 L 94 L 94 L 05/02/18 08:50 05/02/18 08:55 05/02/18 09:00 Temperature Pulse Rate 74 74 77 Respiratory Rate 34 H 26 H 29 H Blood Pressure 114/56 L 115/58 L 108/58 L Pulse Oximetry 94 L 95 92 L 05/02/18 09:05 Temperature Pulse Rate 80 Respiratory Rate 24 Blood Pressure 121/59 L Pulse Oximetry 94 L Intake & Output 05/01/18 05/02/18 05/02/18 18:59 06:59 18:59 Intake Total 1350 / 1350 3024 / 3024 250 / 250 Output Total 1200 / 1200 Balance 1350 / 1350 1824 / 1824 250 / 250 Weight 61 kg Intake: IV 1350 / 1350 2350 / 2350 250 / 250 NS + KCl 20 mEq Inj 1,000 ML @ 1000 / 1000 1000 / 1000 100 mls/hr IV.CONT .Q10H YUKO Rx #:[id number] Cardene Inj 25 MG In NS Inj 240 250 / 250 1250 / 1250 250 / 250 ML @ 5 MG/HR 50 mls/hr IV.CONT TITRATE PRN Rx#:[id number] Keppra 1000 mg/100 mL Premix 100 / 100 100 / 100 100 ML @ 400 mls/hr IV.SIG Q12H YUKO Rx#:[id number] Tube Feeding 374 / 374 Water Bolus Amount 300 / 300 Output: Urine 1200 / 1200 Other: # Voids 4 Date of Last Bowel Movement 05/02/18 05/02/18 # Bowel Movements 2 - Constitutional no acute distress, average body habitus, somnolent - Routine HEENT Exam Head: Present: normocephalic, atraumatic Eye: Absent: periorbital ecchymosis, periorbital swelling ENT: Present: external ear normal - Routine Neck Exam Present: trachea midline - Routine Respiratory Exam Present: CTA bilaterally. Absent: accessory muscle use, patient mechanically ventilated, decreased breath sounds, respiratory distress, rhonchi - Routine Cardiovascular Exam Present: RRR. Absent: murmur, gallop, rubs - Routine Abdominal Exam Present: soft. Absent: tenderness, distended, rebound - Routine Extremities Exam Present: edema (hands), normal capillary refill. Absent: cyanosis, joint swelling, extremity cold to touch - Routine Skin Exam Present: intact, dry. Absent: petechiae, cracked, gangrene - Routine Neurological Exam Present: altered mental status. Absent: alert - Detailed Neurological Exam: Coma Scale Eye Opening: To pressure Verbal Response: Words - Routine Psychiatric Exam Present: unable to assess. Absent: normal affect Assessment and Plan - Assessment (1) Catatonia associated with another mental disorder Code(s): F06.1 - Catatonic disorder due to known physiological condition Status: Acute Plan: She has had some recent depression which is leading to this catatonia. She responds to the Ativan for 30-45 minutes and then drops back into her somnolent state. Medically she has had normal labs. her ABG was normal. her other labs including LATONYA rheumatoid factor RPR ESR were not indicative of any physical causes serious enough to lead to this mental state. Serious consideration is being given to transfer her to a hospital where she can receive ECT. In the meantime we will continue her on the dose of Ativan 2 mg IV every 6 hours were recommended by psychiatry initially. On discussion with Dr Acosta, her Psychiatrist, he believes her ativan should be decreased or possibly weaned down so will decrease today. ECT should be able to be arranged for next week per Dr Acosta. Per past discussion with Psychiatric case management, she needs a associate juvenile court judge to sign off on the ECT. Will wait for the go ahead from Neurology prior to ECT (2) PRES (posterior reversible encephalopathy syndrome) Code(s): I67.83 - Posterior reversible encephalopathy syndrome Status: Acute Plan: There are multiple problems for this patient that are contributing to her mental state. She has been diagnosed with catatonia but Psychiatry today thinks this can be a severe "melancholic" depression. She was fine prior to this and then after her she deteriorated. It is unclear at what point the pres started. her BP has been so labile, that cannot have helped. now she is titrated on a drip so her BPs are stable (3) HTN (hypertension) Code(s): I10 - Essential (primary) hypertension Status: Acute Plan: Her blood pressures are very unpredictable and she failed po meds as her pressures could "roller coaster". Hypertensive crisis is not unusual with catatonia. Sometimes they can have autonomic instability where they can have tachycardia or fever. Fortunately she has not had either of those problems. She has been transferred to the [facility] as her blood pressure can be monitored more frequently. Her catatonia has been so bad that she was not taking any p.o. so an NG tube has been placed. IV medications have done well as they are so quickly titratable will consult Nephrology as her BPs have been so difficult to control. she did not have known secondary HTN prior to this hospitalization (4) Seizures Code(s): R56.9 - Unspecified convulsions Status: Acute Plan: Her last seizure prior to this hospitalization was in 2007. Now she had a possible repeat seizures some days ago. She had not been taking p.o. and her Keppra level was low her EEG showed nonspecific encephalopathy. Right now she is on Keppra 1000 mg IV twice daily, she is scheduled for a lumbar puncture today, her Lovenox is being held hopefully she can get her keppra po or per NG soon (5) Hyperlipidemia Code(s): E78.5 - Hyperlipidemia, unspecified Status: Chronic Plan: We will continue on her regular medications. (6) Diabetes Code(s): E11.9 - Type 2 diabetes mellitus without complications Status: Chronic Plan: Based on her relatively poor p.o. intake we will not give regular doses of her diabetic medication can decide about giving insulin more regularly and scheduled if she eats better but will check her glucoses and give a low sliding scale for now. started NG feeds as she eats virtually nothing. (7) Clavicle fracture Code(s): S42.009A - Fracture of unspecified part of unspecified clavicle, initial encounter for closed fracture Status: Acute Plan: getting tylenol prn. she is healing over time. right sided fracture (8) Nutrition, metabolism, and development symptoms Code(s): R63.8 - Other symptoms and signs concerning food and fluid intake Status: Acute Plan: She is not eating well during this hospitalization. Hopefully she can get ECT soon which gets people better more quickly. Would not want to place a PEG tube as this is a temporary condition. She is altered. Intermittently she is more alert. - Assessment and Plan 68 yo female with dementia, HTN, DM admitted with: Catatonia Medical work-up has been negative except for PRES. Given that her altered mental status preceded her hypertension it is likely that the root cause of her altered mental state is catatonia. She does have a component of PRES by MRI but this is most likely due to hypertension caused by catatonia rather than primary hypertension leading to encephalopathy. Mental status improves with Ativan however effect only lasts for about 30 min per nursing and MD observations. No dysautonomia except for the hypertension. CBC and CK within normal limits; no signs of NMS ABG essentially normal Ammonia very slightly elevated, unlikely to be etiology of her mental status LATONYA screen positive, titer pending RF negative RPR negative ESR normal * Continue Lexapro and Seroquel * Per psychiatrist recommendation continue Ativan 2 mg IV Q6H (mental status improves with Ativan); hold for sedation or bradycardia or apnea * Discussed case with psychiatry Dr. Acosta, appreciate assistance * Only treatment likely to improve her depression/catatonia is ECT - Dr. Acosta to discuss with welfare case worker to make arrangements to transfer her to a facility that performs ECT. Primary team to assist as needed with transfer process. * Manage hypertension as noted below PRES MRI findings suggestive of PRES * Neurology following, appreciate assistance * Control BP as below Hypertension BP still intermittently elevated likely related to catatonia Difficulty taking PO meds due to fluctuating mental status * Due to PRES needs tighter BP control per neurology: goal SBP 110-120 * Continue lisinopril 20 mg daily while able to take PO * Discontinue PO amlodipine, HCTZ, clonidine, hydralazine * Clonidine needs to be weaned to prevent rebound hypertension: apply 0.1 mg/d patch, leave on until it falls off, min 10 days * Start nicardipine drip titrated to target BP < 120/90 Seizure Disorder Now with possible repeat seizure vs (more likely) catalepsy from catatonia EEG with nonspecific encephalopathy Keppra level was low MRI/MRA unremarkable except for PRES as noted * Consulted neurology, appreciate assistance * Continue Keppra to 1000 mg IV BID * Control BP as part of PRES management * Recommended lumbar puncture, scheduled for today * Treat catatonia as above Clavicle Fracture, right Stable, RUE neurovascularly intact * Consulted [facility] for sling placement for comfort * Pain control with PO Tylenol and [place] PRN Diabetes mellitus BG at hospital goal now * Check sugar AC/HS * Holding metformin for now * Low dose SSI Hyperlipidemia * Continue home atorvastatin Fluids: IV NS + 20 mEq/L KCl at 100 CC/HR Diet: Pureed as tolerated, Ensure shakes/pudding ad aisha for caloric support * Nutritional status has been poor for last > 1 week, not eating much * Place NG tube * Start Glucerna at initial rate of 20 cc/hr * Consult to medical van driver for further recommendation on feedings / nutritional support until her mental status improves DVT: Lovenox 40 mg SQ daily, to be held today for LP, resume 05/02 Continue PT to do ROM (3) HTN (hypertension) Qualifiers: Hypertension type: other secondary hypertension Qualified Code(s): I15.8 - Other secondary hypertension (5) Hyperlipidemia Qualifiers: Hyperlipidemia type: pure hypercholesterolemia Qualified Code(s): E78.00 - Pure hypercholesterolemia, unspecified; E78.0 - Pure hypercholesterolemia (6) Diabetes Qualifiers: Diabetes mellitus type: type 2 Diabetes mellitus long term care administrator insulin use: unspecified long term care administrator insulin use status Diabetes mellitus complication status : with circulatory complication Diabetes mellitus complication detail: with peripheral angiopathy without gangrene Qualified Code(s): E11.51 - Type 2 diabetes mellitus with diabetic peripheral angiopathy without gangrene (7) Clavicle fracture Qualifiers: Encounter type: subsequent encounter Fracture type: closed Laterality: right
--- NOTE | 2018-05-02 11:39 | P.RAD ---
Post Procedure Progress Note - Pre Procedure Diagnosis (1) Dementia - Post Procedure Diagnosis (1) Dementia - Procedure Information Procedure Date: 05/02/18 Supervising Radiologist: Dutch Silva MD Anesthesia: Local - Plan of Activity Patient to Unit: Critical Care Patient Condition: Poor See PACS Report for procedural detail/treatment. Spinal Procedure Lumbar Puncture L3-L4 Fluid Removal (CCs): 19 (opening pressure 23) Fluid Description: Clear
[2018-05-02 12:32] LABS: Total Protein,CSF 35.4 mg/dL (15.0-45.0)
[2018-05-02 13:30] LABS: RBC on Tube 1 1 /mm3
[2018-05-02 13:33] LABS: Lymphocytes, CSF 0 %; Neutrophils,CSF 0 %
[2018-05-02 13:34] LABS: RBC on Tube 4 1 /mm3
--- NOTE | 2018-05-02 13:38 | IR ---
EXAM DATE: 05/02/2018 12:08 PM EST AGE/SEX: 68 years / Female INDICATIONS: Patient admitted for behavior changes and AMS. Uncontrolled high blood pressure. CLINICAL DATA: This is the patient's initial encounter. Patient reports that signs and symptoms have been present for 4 - 6 days and indicates a pain score of 0/10. MEDICAL/SURGICAL HISTORY: Diabetes. Hypertension. Peripheral artery disease. seizures, hyper lipidemia, depression anxiety, gout,stroke,fractured wrist. Non- Hodgkin lymphoma . AKA right leg. COMPARISON: No prior exams available for comparison. FLUORO TIME (min): 0.8 IMAGE SERIES: 1 RADIATION DOSE: 35.0 mGy ACCESS SITE: L2-3 LUMBAR PUNCTURE TIME: 1130 hours OPENING PRESSURE: 23 cm of water not requested FLUID: Total volume of 19 cc of clear fluid was removed. Fluid was sent to lab for ordered studies. ; . . PROCEDURE: 1. Fluoroscopic guided lumbar puncture. The risks, benefits and alternatives to the procedure were explained and verbal and written consent w as obtained. The site was prepped in sterile fashion. Full sterile technique was used, including ca p, mask, sterile gloves and gown and a large sterile sheet. Hand hygiene and 2% chlorhexidine and/or betadine/alcohol prep was utilized per protocol for cutaneous antisepsis. The skin and subcutaneous tissues were infiltrated with local anesthetic solution. With fluoroscopic guidance the lumbar thecal sac was punctured at the level above. The fluid describ ed above was removed without difficulty. The patient tolerated the procedure well and there were no complications. CONCLUSION: 1. Uncomplicated fluoroscopically guided lumbar puncture. Electronically signed by: Dutch Silva MD Board Certified Radiologist 05/02/2018 1:37 PM EST
--- NOTE | 2018-05-02 15:13 | P.PNPSY ---
Subjective Remarks: May 02, 2018 Subjective: The patient was seen lying in ICU bed. Review of the record shows the patient's blood pressure is coming down but requiring venous anti- hypertensive medication. Patient was discussed with the hospitalist as well as the staff nurse in charge of the patient. Patient has shown no improvement so far as her psychomotor behavior is concerned. Patient was discussed with Picture Copyist Dina in the [place] act hearing this morning and a [facility] guardian advocate appointed so that ECT can be decided the following week by the court. Patient remains on ICU floor until stable. It is anticipated that the neurological workup can be contemplated time for the ECT. Mental Status Examination Orientation: Person, Place, Situation (Patient does realize her situation is becoming critical, but is now refusing oral medication) Motor Activity: Other (Severe psychomotor retardation) Speech: Other (No verbalization) Fund of Knowledge: Adequate (Unknown) Attention and Concentration: Adequate (At times) Mood: Sad (Catatonic) Affect: Sad, Flat Thought Process & Associations: Intact (Untestable) Assessment and Plan - Plan Plan: May 02, 2018 Patient will continue medical floor until stable. A hearing next for ordering of ECT Justification for Continued Inpatient Stay: May 02, 2018 patient remains on the medical floor in a very unstable status.
--- NOTE | 2018-05-02 22:01 | MB ---
cc: Radha Leiva MD DATE: 05/02/2018 REASON FOR CONSULTATION: Hypertension to control the blood pressure. HISTORY OF PRESENT ILLNESS: This is a 68-year-old female with past medical history of hypertension, peripheral vascular disease, diabetes mellitus, dementia, non-Hodgkin's lymphoma in remission, admitted with altered mental status. The patient was diagnosed by neurology to have hypertensive encephalopathy, and MRI of the head showing that the patient has vasogenic edema with posterior reversible encephalopathy syndrome, chronic small vessel ischemic disease. Neurology has been following the patient, and they recommended to have tighter control of blood pressure. The patient had a lumbar puncture done today. The patient is still quite confused and not able to give any history. Most of the history was taken from the patient's chart, and neurology recommended to keep the systolic blood pressure around 110-120. PAST MEDICAL HISTORY: Hypertension, diabetes mellitus, peripheral vascular disease, dementia, non-Hodgkin's lymphoma. PAST SURGICAL HISTORY: Right above-knee amputation. REVIEW OF SYSTEMS: Cannot be taken since the patient is still quite confused and not answering most of the questions. SOCIAL HISTORY: Taken from the chart according to which she has no known history of smoking or alcoholism. FAMILY HISTORY: Noncontributory. ALLERGIES: SHE IS ALLERGIC TO IODINE. MEDICATIONS: Currently, the patient is on the following medications: 1. Milk of magnesia. 2. Aspirin 81 mg once a day. 3. Lipitor 40 mg daily. 4. Dulcolax p.r.n. 5. Lexapro 20 mg once a day. 6. Pepcid 20 mg b.i.d. 7. Neurontin 600 mg b.i.d. 8. Hydralazine 10 mg q.i.d. 9. Insulin aspart at bedtime. 10. Keppra 1000 mg every 12 hours. 11. Lactulose 30 mL p.r.n. 12. Prinivil 20 mg once a day. 13. Ativan 1 mg q.6 hours. 14. Nicardipine infusion. 15. IV fluid with potassium chloride. 16. Aleah-Colace 1 tablet b.i.d. 17. Senokot 17.2 mg every 12 hours. 18. Thiamine 100 mg IM daily. PHYSICAL EXAMINATION: GENERAL: The patient is awake, alert. She is not following any commands, with cannula. VITAL SIGNS: Last blood pressure recorded is 137/64, temperature is 98, oxygen saturation is 96%. HEENT: Pupils are mid-constricted. Nonicteric sclerae. Conjunctivae normal. NECK: Supple. JVD is not elevated. LUNGS: The patient has bilateral decreased air entry with occasional wheezing. HEART: S1, S2. Regular rhythm. ABDOMEN: Soft and lax. There is no tenderness. Bowel sounds positive. EXTREMITIES: The patient has a right above-knee amputation. Mild edema in the left leg. NEUROLOGIC: The patient is awake but confused. INVESTIGATIONS: WBC count is 12.0, hemoglobin 13.6, and platelet count of 255. INR is 1.5. Sodium 143, potassium 4.0, chloride 111, bicarbonate 23.1, BUN 14, creatinine 0.7, glucose 171. Lactic acid was 0.7, calcium is 8.0. AST is 37, ALT is 18, albumin is 2.4, total protein is 5.7. Serologies pending. CSF showing WBC 4, RBC 1. IMAGING STUDIES: The patient had MRI of the head done which showed that the patient has small vessel changes along with vasogenic edema involving the parietal and occipital lobe bilaterally, atrophy. Carotid Doppler was done which shows the patient has 50%-69% stenosis in the left and less than 50% stenosis on the right side. ASSESSMENT AND PLAN: 1. Stroke with vasogenic edema. 2. Confusion and encephalopathy. 3. Hypertension. 4. Seizure disorder. 5. Hyperlipidemia. 6. Diabetes mellitus. The patient has uncontrolled hypertension, and according to Neurology, she needs more strict control of hypertension. The patient is on nicardipine. She is currently on lisinopril 20 mg daily and also on hydralazine 10 mg q.i.d., which was started today along with labetalol IV p.r.n. So, I will increase the hydralazine to 25 mg. The recommendation from the neurology is to keep the systolic around 110-120, so we will try to keep that and continue the other medications. It is very unlikely that the patient has secondary hypertension. Most likely, this is essential hypertension. Thank you for the consultation, and I will continue to see the patient while she is in the hospital. LilianaMD AUGUSTO Manzanares/bo , 09:10 PM , 09:24 PM
[2018-05-03] MEDS: levETIRAcetam 1000mg/100mL Inj 100 ML IV.SIG SCH ×2 (00:52→13:08)
[2018-05-03] MEDS: niCARdipine Inj 25 MG in Sodium Chlor 0.9% Inj 240 ML IV.CONT PRN ×3 (00:52→04:38)
[2018-05-03] MEDS: Insulin NovoLOG Aspart Correctional Sugar Inj SQ SCH ×3 (04:08→18:14)
[2018-05-03] MEDS: Chlorhexidine Gluconate 2% 1 Pack (2 Cloths) TOPICAL SCH (04:08)
[2018-05-03 05:02] LABS: Baso # (Auto) 0.1 th/mm3 (0.0-0.2); Eos # (Auto) 0.4 th/mm3 (0.0-0.4); Eos % (Auto) 2.6 % (0.0-4.0); Hematocrit 39.3 % (35.0-46.0); Hemoglobin 12.8 gm/dL (11.6-15.3); Lymph # (Auto) 2.6 th/mm3 (1.0-4.8); Mean Corpuscular HGB Conc 32.6 % (32.0-36.0); Mean Corpuscular Hemoglobin 30.5 pg (27.0-34.0); Mean Corpuscular Volume 93.7 fL (80.0-100.0); Mean Platelet Volume 9.5 fL (7.0-11.0); Mono # (Auto) 1.1 th/mm3 (0.0-0.9); Mono % (Auto) 8.3 % (0.0-8.0); Neut # (Auto) 9.4 th/mm3 (1.8-7.7); Neut % (Auto) 69.1 % (16.0-70.0); Platelet Count 279 th/mm3 (150-450); Red Cell Distribution Width 14.4 % (11.6-17.2); White Blood Count 13.7 th/mm3 (4.0-11.0)
[2018-05-03 05:26] LABS: Calcium 7.6 mg/dL (8.5-10.1); Carbon Dioxide 22.5 meq/L (21.0-32.0); Potassium 4.3 meq/L (3.5-5.1)
[2018-05-03] MEDS ORDERED: Midazolam Inj 5 MG/ML 1 ML Vial ONE (06:22)
[2018-05-03] MEDS ORDERED: Lidocaine 1% Inj 50 ML Vial ONE (06:37)
[2018-05-03] MEDS ORDERED: Propofol Inj 500 MG/50 ML Vial ONE (06:47)
[2018-05-03] MEDS ORDERED: Pantoprazole Inj 40 MG Vial IV.PUSH SCH (07:00)
[2018-05-03] MEDS ORDERED: fentaNYL 10 mcg/mL Premix Drip 2,500 MCG/250 ML BAG IV.SIG PRN (07:01)
--- NOTE | 2018-05-03 07:24 | P.PCN ---
Date of procedure: 05/03/18 Pre-op diagnosis: Acute respiratory failure secondary to angioedema Post-op diagnosis: same Procedure: DATE: 05/03/2018 PROCEDURE: Orotracheal intubation INDICATION: Acute respiratory failure angioedema DETAILS OF PROCEDURE The patient was placed in optimal position and preoxygenated with 100% FiO2 via bag valve mask. At the start oxygen saturation was 97%. The patient was administered 4 milligrams of midazolam IV. I entered the oropharynx with a size 4 laryngoscope blade and obtained a grade 2 view of the airway. On single attempt a size 7.5 cuffed endotracheal tube was passed through the vocal cords. Correct tube location was confirmed with end tidal CO2 detector and by auscultating over bilateral lung delvalle. The endotracheal tube was secured with adhesive tape at a depth of 23 cm at the lips. The patient was connected to the ventilator. The patient tolerated the procedure well without any apparent complications. Oxygen saturations were maintained greater than 95% all times. STAT chest x-ray pending at time of dictation.
[2018-05-03] MEDS ORDERED: MethylPREDNISolone Sod Succinate Inj 125 MG/2 ML Vial IV.PUSH ONE (07:27)
--- NOTE | 2018-05-03 07:32 | P.PNNEU ---
Subjective Active Medications: Active Medications Acetaminophen (Tylenol Liq) 650 mg NG/OG Q6H PRN PRN Reason: PAIN 1-10 AND/OR FEVER >101F Al Hydroxide/Mg Hydroxide (Milk Of Magnesia Liq) 30 ml PO Q12H PRN PRN Reason: Mild Constipation Albuterol (Duoneb Neb (Eloy)) 1 ampul NEB Q4HR NEB ELOY Albuterol (Albuterol Neb (Prn)) 2.5 mg NEB Q2HR NEB PRN PRN Reason: DYSPNEA Artificial Tears (Tears Naturale Opth Drops) 1 drop EACH EYE Q8H [facility] Aspirin (Aspirin Chew) 81 mg NG/OG DAILY [facility] Last Admin: 05/02/18 08:00 Dose: 81 mg Atorvastatin Calcium (Lipitor) 40 mg NG/OG HS [facility] Last Admin: 05/02/18 20:24 Dose: 40 mg Bisacodyl (Dulcolax Supp) 10 mg RECTAL DAILY PRN PRN Reason: SEVERE CONSITIPATION Chlorhexidine Gluconate (Chlorhexidine 2% Cloth) 3 pack TOPICAL DAILY@0400 [facility] Stop: 05/06/18 03:59 Last Admin: 05/03/18 04:08 Dose: 3 pack Chlorhexidine Gluconate (Chlorhexidine 2% Cloth) 3 pack TOPICAL DAILY@0400 PRN PRN Reason: Extra cloth needed Stop: 05/06/18 03:59 Chlorhexidine Gluconate (Peridex 0.12% Oral Kit) 15 ml OROPHARYNG BID@0800, 2000 [facility] Dextrose (D50w Vial) 50 ml IV.PUSH UNSCH PRN PRN Reason: PER HYPOGLYCEMIA PROTOCOL Diphenhydramine HCl (Benadryl Inj) 50 mg IV.PUSH Q6H [facility] Stop: 05/05/18 07:59 Escitalopram Oxalate (Lexapro) 20 mg NG/OG DAILY [facility] Last Admin: 05/02/18 08:00 Dose: 20 mg Famotidine (Pepcid Pf Inj) 20 mg IV.PUSH Q12HR [facility] Gabapentin (Neurontin) 600 mg PO BID [facility] Last Admin: 05/01/18 08:56 Dose: Not Given Glucagon (Glucagon Inj) 1 mg OTHER PRN PRN PRN Reason: for Hypoglycemia Protocol Hydralazine HCl (Apresoline) 25 mg NG/OG QID PRN PRN Reason: SEE LABEL COMMENTS Potassium Chloride/Sodium Chloride (Ns + Kcl 20 Meq Inj) 1,000 mls @ 100 mls/ hr IV.CONT .Q10H [facility] Last Admin: 05/03/18 01:22 Dose: Not Given Levetiracetam (Keppra 1000 Mg/100 Ml Premix) 100 mls @ 400 mls/hr IV.SIG Q12H [facility] Last Infusion: 05/03/18 01:21 Dose: Infused Nicardipine HCl 25 mg/ Sodium (Chloride) 250 mls @ 50 mls/hr IV.CONT TITRATE PRN; Protocol PRN Reason: Per Protocol Last Admin: 05/03/18 04:38 Dose: 15 mg/hr, 150 mls/hr Propofol (Diprivan 1000 Mg/100 Ml Inj) 1,000 mg in 100 mls @ 1.95 mls/hr IV.CONT TITRATE PRN; Protocol PRN Reason: Per Protocol Fentanyl (Fentanyl 10 Mcg/Ml Premix Drip) 2,500 mcg in 250 mls @ 5 mls/hr IV.SIG TITRATE PRN; Protocol PRN Reason: Per Protocol Insulin Aspart (Novolog Insulin Correctional Sugar Inj) 0 unit SQ ACHS AND 3AM ELOY; Protocol Last Admin: 05/03/18 04:08 Dose: Not Given Lactulose (Lactulose Liq) 30 ml PO DAILY PRN PRN Reason: SEVERE CONSITIPATION Lorazepam (Ativan Inj) 1 mg IV.PUSH Q6H [facility] Last Admin: 05/03/18 00:52 Dose: 1 mg Methylprednisolone Sodium Succinate (Solumedrol Inj) 125 mg IV.PUSH ONCE ONE Stop: 05/03/18 07:28 Miscellaneous Medication () 1 each OROPHARYNG 0000,0400,1200,1600 [facility] Senna/Docusate Sodium (Aleah-Colace) 1 tab PO BID [facility] Last Admin: 05/02/18 21:11 Dose: Not Given Sennosides (Senokot) 17.2 mg PO Q12H PRN PRN Reason: Moderate Constipation Sodium Chloride (Ns Flush) 2 ml IV.FLUSH BID [facility] Last Admin: 05/02/18 21:10 Dose: 2 ml Sodium Chloride (Ns Flush) 2 ml IV.FLUSH UNSCH PRN PRN Reason: FLUSH AFTER USING IV ACCESS Thiamine HCl (Thiamine Inj) 100 mg IM DAILY [facility] Last Admin: 05/02/18 07:59 Dose: 100 mg Allergies/Adverse Reactions: Allergies Allergy/AdvReac Type Severity Reaction Status Date / Time iodine Allergy Swelling Verified 04/19/18 15:50 Physical Exam Vital signs: Vital Signs 05/02/18 08:00 05/02/18 08:01 05/02/18 08:05 Temperature 97.8 F Pulse Rate 83 88 80 Respiratory Rate 43 H 46 H 28 H Blood Pressure 152/71 H 152/71 H 122/55 L Pulse Oximetry 97 96 95 05/02/18 08:10 05/02/18 08:15 05/02/18 08:20 Temperature Pulse Rate 81 87 85 Respiratory Rate 28 H 28 H 36 H Blood Pressure 115/58 L 143/66 H 144/67 H Pulse Oximetry 95 96 95 05/02/18 08:25 05/02/18 08:30 05/02/18 08:35 Temperature Pulse Rate 81 79 77 Respiratory Rate 29 H 27 H 47 H Blood Pressure 115/56 L 123/58 L 127/56 L Pulse Oximetry 94 L 95 94 L 05/02/18 08:40 05/02/18 08:45 05/02/18 08:50 Temperature Pulse Rate 73 74 74 Respiratory Rate 49 H 50 H 34 H Blood Pressure 119/58 L 117/58 L 114/56 L Pulse Oximetry 94 L 94 L 94 L 05/02/18 08:55 05/02/18 09:00 05/02/18 09:05 Temperature Pulse Rate 74 77 80 Respiratory Rate 26 H 29 H 24 Blood Pressure 115/58 L 108/58 L 121/59 L Pulse Oximetry 95 92 L 94 L 05/02/18 11:30 05/02/18 11:35 05/02/18 11:45 Temperature 97.6 F Pulse Rate 76 78 78 Respiratory Rate 26 H 27 H 21 Blood Pressure 112/56 L 112/56 L 114/57 L Pulse Oximetry 98 98 05/02/18 11:55 05/02/18 12:00 05/02/18 12:15 Temperature Pulse Rate 73 75 77 Respiratory Rate 24 23 26 H Blood Pressure 122/60 118/57 L 127/57 L Pulse Oximetry 100 100 05/02/18 12:30 05/02/18 12:45 05/02/18 13:00 Temperature Pulse Rate 78 78 79 Respiratory Rate 24 26 H 27 H Blood Pressure 125/58 L 125/64 130/60 Pulse Oximetry 100 99 98 05/02/18 14:00 05/02/18 16:00 05/02/18 16:15 Temperature 98.0 F Pulse Rate 87 86 86 Respiratory Rate 30 H 29 H Blood Pressure 137/64 135/62 Pulse Oximetry 96 97 05/02/18 16:30 05/02/18 16:45 05/02/18 17:00 Temperature Pulse Rate 85 83 83 Respiratory Rate 29 H 23 26 H Blood Pressure 136/63 128/60 131/60 Pulse Oximetry 97 97 97 05/02/18 17:15 05/02/18 17:30 05/02/18 17:45 Temperature Pulse Rate 87 89 85 Respiratory Rate 25 H 27 H 26 H Blood Pressure 131/61 126/68 126/55 L Pulse Oximetry 95 89 L 88 L 05/02/18 18:00 05/02/18 18:15 05/02/18 18:30 Temperature Pulse Rate 86 84 83 Respiratory Rate 26 H 27 H 26 H Blood Pressure 128/60 124/60 126/61 Pulse Oximetry 100 86 L 98 05/02/18 18:45 05/02/18 19:00 05/02/18 19:15 Temperature Pulse Rate 84 84 88 Respiratory Rate 24 25 H 27 H Blood Pressure 124/60 122/60 125/61 Pulse Oximetry 95 90 L 96 05/02/18 19:30 05/02/18 19:45 05/02/18 20:00 Temperature 99.5 F Pulse Rate 88 89 90 Respiratory Rate 29 H 29 H 26 H Blood Pressure 123/60 122/59 L 123/60 Pulse Oximetry 93 L 100 99 05/02/18 20:15 05/02/18 20:30 05/02/18 20:45 Temperature Pulse Rate 85 85 84 Respiratory Rate 29 H 28 H 27 H Blood Pressure 121/56 L 122/60 124/60 Pulse Oximetry 98 97 94 L 05/02/18 21:00 05/02/18 21:15 05/02/18 21:30 Temperature Pulse Rate 84 86 85 Respiratory Rate 28 H 28 H 27 H Blood Pressure 122/57 L 123/58 L 126/58 L Pulse Oximetry 97 97 97 05/02/18 21:45 05/02/18 22:00 05/02/18 22:15 Temperature Pulse Rate 86 89 86 Respiratory Rate 29 H 27 H 29 H Blood Pressure 128/59 L 131/62 123/55 L Pulse Oximetry 98 98 96 05/02/18 22:30 05/02/18 22:45 05/02/18 23:00 Temperature Pulse Rate 87 83 83 Respiratory Rate 29 H 29 H 27 H Blood Pressure 129/60 119/54 L 118/59 L Pulse Oximetry 98 96 95 05/02/18 23:15 05/02/18 23:30 05/02/18 23:45 Temperature Pulse Rate 85 92 H 89 Respiratory Rate 27 H 30 H 29 H Blood Pressure 125/61 132/57 L 122/59 L Pulse Oximetry 97 98 97 05/03/18 00:00 05/03/18 00:15 05/03/18 00:30 Temperature Pulse Rate 88 86 87 Respiratory Rate 27 H 25 H 26 H Blood Pressure 129/59 L 125/61 125/57 L Pulse Oximetry 98 97 98 05/03/18 00:45 05/03/18 01:00 05/03/18 01:15 Temperature Pulse Rate 83 83 80 Respiratory Rate 27 H 28 H 26 H Blood Pressure 120/58 L 124/59 L 120/58 L Pulse Oximetry 97 96 96 05/03/18 01:30 05/03/18 01:45 05/03/18 02:00 Temperature Pulse Rate 81 85 86 Respiratory Rate 24 26 H 26 H Blood Pressure 120/58 L 126/61 124/59 L Pulse Oximetry 95 96 95 05/03/18 02:15 05/03/18 02:30 05/03/18 02:45 Temperature Pulse Rate 89 91 H 89 Respiratory Rate 25 H 28 H 26 H Blood Pressure 126/61 125/60 124/58 L Pulse Oximetry 97 97 97 05/03/18 03:00 05/03/18 03:15 05/03/18 03:30 Temperature Pulse Rate 92 H 90 87 Respiratory Rate 28 H 25 H 26 H Blood Pressure 127/59 L 123/60 112/56 L Pulse Oximetry 96 95 96 05/03/18 03:45 05/03/18 04:00 05/03/18 04:15 Temperature Pulse Rate 87 90 86 Respiratory Rate 27 H 29 H 28 H Blood Pressure 118/53 L 125/60 121/58 L Pulse Oximetry 96 95 95 05/03/18 04:30 05/03/18 05:00 05/03/18 06:00 Temperature Pulse Rate 86 92 H 92 H Respiratory Rate 25 H 25 H 31 H Blood Pressure 127/61 Pulse Oximetry 96 97 92 L 05/03/18 06:44 05/03/18 06:46 05/03/18 06:51 Temperature Pulse Rate 109 H 93 H Respiratory Rate 16 20 16 Blood Pressure 134/65 102/55 L Pulse Oximetry 89 L 87 L 88 L 05/03/18 06:54 05/03/18 06:56 05/03/18 06:58 Temperature Pulse Rate 92 H 92 H 91 H Respiratory Rate 16 16 16 Blood Pressure 103/58 L 97/55 L 100/54 L Pulse Oximetry 89 L 89 L 90 L 05/03/18 07:00 05/03/18 07:02 Temperature Pulse Rate 91 H 90 Respiratory Rate 16 16 Blood Pressure 96/51 L 101/55 L Pulse Oximetry 87 L 90 L Intake & Output 05/02/18 05/03/18 05/03/18 18:59 06:59 18:59 Intake Total 2397 / 2397 2625 / 2625 Output Total 1200 / 1200 600 / 600 Balance 1197 / 1197 2024 / 202 Weight 65 kg Intake: IV 1850 / 1850 2350 / 2350 NS + KCl 20 mEq Inj 1,000 ML @ 500 / 500 1000 / 1000 100 mls/hr IV.CONT .Q10H ELOY Rx #:[id number] Cardene Inj 25 MG In NS Inj 240 1250 / 1250 1250 / 1250 ML @ 5 MG/HR 50 mls/hr IV.CONT TITRATE PRN Rx#:[id number] Keppra 1000 mg/100 mL Premix 100 / 100 100 / 100 100 ML @ 400 mls/hr IV.SIG Q12H ELOY Rx#:[id number] Oral 0 / 0 Tube Feeding 447 / 447 150 / 150 Tube Irrigant 125 / 125 Water Bolus Amount 100 / 100 Output: Urine 1200 / 1200 600 / 600 Other: # Incontinent Voids 2 Date of Last Bowel Movement 05/02/18 05/02/18 # Bowel Movements 2 Narrative: just intubated facial angioedema was following some commands acc to nurse last noc Objective Laboratory Results - last 24 hr 05/02/18 05/02/18 05/02/18 07:43 08:28 08:28 WBC 12.0 H RBC 4.36 Hgb 13.6 Hct 39.8 MCV 91.3 MCH 31.3 MCHC 34.3 RDW 14.1 Plt Count 255 MPV 9.8 Neut % (Auto) Lymph % (Auto) [place] % (Auto) Eos % (Auto) Baso % (Auto) Neut # (Auto) Lymph # (Auto) [place] # (Auto) Eos # (Auto) Baso # (Auto) WBC Differential Differential Comment Sodium 143 Potassium 4.0 Chloride 111 H Carbon Dioxide 23.1 Anion Gap 9 BUN 14 Creatinine 0.71 Estimated GFR 82 L POC Glucose 152 H Random Glucose 169 H Calcium 8.0 L Total Bilirubin 0.4 AST 37 ALT 18 Alkaline Phosphatase 91 Total Protein 5.7 L Albumin 2.4 L CSF Volume (1) CSF Supernat Color (1) CSF Gross Blood (1) CSF WBC (1) CSF RBC (1) CSF Volume (2) CSF Supernat Color (2) CSF Gross Blood (2) CSF Volume (3) CSF Supernat Color (3) CSF Gross Blood (3) CSF Volume (4) CSF Supernat Color (4) CSF Gross Blood (4) CSF WBC (4) CSF RBC (4) CSF Neutrophils % CSF Lymphocytes % CSF Glucose CSF Total Protein 05/02/18 05/02/18 05/02/18 11:30 11:30 11:30 WBC RBC Hgb Hct MCV MCH MCHC RDW Plt Count MPV Neut % (Auto) Lymph % (Auto) [place] % (Auto) Eos % (Auto) Baso % (Auto) Neut # (Auto) Lymph # (Auto) [place] # (Auto) Eos # (Auto) Baso # (Auto) WBC Differential Differential Comment Sodium Potassium Chloride Carbon Dioxide Anion Gap BUN Creatinine Estimated GFR POC Glucose Random Glucose Calcium Total Bilirubin AST ALT Alkaline Phosphatase Total Protein Albumin CSF Volume (1) 5.3 CSF Supernat Color (1) Clear CSF Gross Blood (1) 0 CSF WBC (1) 4 CSF RBC (1) 1 H CSF Volume (2) 4.5 CSF Supernat Color (2) Clear CSF Gross Blood (2) 0 CSF Volume (3) 5.0 CSF Supernat Color (3) Clear CSF Gross Blood (3) 0 CSF Volume (4) 4.0 CSF Supernat Color (4) Clear CSF Gross Blood (4) 0 CSF WBC (4) 0 CSF RBC (4) 1 H CSF Neutrophils % 0 CSF Lymphocytes % 0 CSF Glucose Cancelled CSF Total Protein 05/02/18 05/02/18 05/02/18 11:30 12:02 16:15 WBC RBC Hgb Hct MCV MCH MCHC RDW Plt Count MPV Neut % (Auto) Lymph % (Auto) [place] % (Auto) Eos % (Auto) Baso % (Auto) Neut # (Auto) Lymph # (Auto) [place] # (Auto) Eos # (Auto) Baso # (Auto) WBC Differential Differential Comment Sodium Potassium Chloride Carbon Dioxide Anion Gap BUN Creatinine Estimated GFR POC Glucose 133 H 171 H Random Glucose Calcium Total Bilirubin AST ALT Alkaline Phosphatase Total Protein Albumin CSF Volume (1) CSF Supernat Color (1) CSF Gross Blood (1) CSF WBC (1) CSF RBC (1) CSF Volume (2) CSF Supernat Color (2) CSF Gross Blood (2) CSF Volume (3) CSF Supernat Color (3) CSF Gross Blood (3) CSF Volume (4) CSF Supernat Color (4) CSF Gross Blood (4) CSF WBC (4) CSF RBC (4) CSF Neutrophils % CSF Lymphocytes % CSF Glucose 91 H CSF Total Protein 35.4 05/02/18 05/03/18 05/03/18 21:13 04:02 04:30 WBC 13.7 H RBC 4.20 Hgb 12.8 Hct 39.3 MCV 93.7 MCH 30.5 MCHC 32.6 RDW 14.4 Plt Count 279 MPV 9.5 Neut % (Auto) 69.1 Lymph % (Auto) 19.0 [place] % (Auto) 8.3 H Eos % (Auto) 2.6 Baso % (Auto) 1.0 Neut # (Auto) 9.4 H Lymph # (Auto) 2.6 [place] # (Auto) 1.1 H Eos # (Auto) 0.4 Baso # (Auto) 0.1 WBC Differential . Differential Comment Auto diff final Sodium Potassium Chloride Carbon Dioxide Anion Gap BUN Creatinine Estimated GFR POC Glucose 207 H 147 H Random Glucose Calcium Total Bilirubin AST ALT Alkaline Phosphatase Total Protein Albumin CSF Volume (1) CSF Supernat Color (1) CSF Gross Blood (1) CSF WBC (1) CSF RBC (1) CSF Volume (2) CSF Supernat Color (2) CSF Gross Blood (2) CSF Volume (3) CSF Supernat Color (3) CSF Gross Blood (3) CSF Volume (4) CSF Supernat Color (4) CSF Gross Blood (4) CSF WBC (4) CSF RBC (4) CSF Neutrophils % CSF Lymphocytes % CSF Glucose CSF Total Protein 05/03/18 04:30 WBC RBC Hgb Hct MCV MCH MCHC RDW Plt Count MPV Neut % (Auto) Lymph % (Auto) [place] % (Auto) Eos % (Auto) Baso % (Auto) Neut # (Auto) Lymph # (Auto) [place] # (Auto) Eos # (Auto) Baso # (Auto) WBC Differential Differential Comment Sodium 145 Potassium 4.3 Chloride 115 H Carbon Dioxide 22.5 Anion Gap 8 BUN 15 Creatinine 0.71 Estimated GFR 82 L POC Glucose Random Glucose 159 H Calcium 7.6 L Total Bilirubin AST ALT Alkaline Phosphatase Total Protein Albumin CSF Volume (1) CSF Supernat Color (1) CSF Gross Blood (1) CSF WBC (1) CSF RBC (1) CSF Volume (2) CSF Supernat Color (2) CSF Gross Blood (2) CSF Volume (3) CSF Supernat Color (3) CSF Gross Blood (3) CSF Volume (4) CSF Supernat Color (4) CSF Gross Blood (4) CSF WBC (4) CSF RBC (4) CSF Neutrophils % CSF Lymphocytes % CSF Glucose CSF Total Protein Microbiology 05/02/18 11:30 Fungal Smear - Final Cerebral Spinal Fluid - Lumbar Puncture No fungal elements seen 05/02/18 11:30 Gram Stain - Final Lumbar Puncture Review/Management - Diagnosis (1) Hypertensive encephalopathy Code(s): I67.4 - Hypertensive encephalopathy Status: Acute Current Visit: Yes (2) HTN (hypertension) Code(s): I10 - Essential (primary) hypertension Status: Acute Current Visit : No (3) Dementia Code(s): F03.90 - Unspecified dementia without behavioral disturbance Status: Acute Current Visit: No (4) Seizures Code(s): R56.9 - Unspecified convulsions Status: Acute Current Visit: No (5) Anxiety Code(s): F41.9 - Anxiety disorder, unspecified Status: Acute Current Visit: No - Review/Management Plan: 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 may have element of PRES as noted in prior notes recs check csf studies-pending bp control Thiamine supplementation follow exam Dr. Mehta to follow in a.m. 05/01/18 mri loops like PRES mra and mrv and labs all neg keep bp 110-120/ LP today eeg neg on keppra --------- 05/02/18 looks a little better mri repeat yest no change pres bp better keep 110-120/ await LP needs done today!! on keppra 05/03/18 mri no change eeg neg LP neg bp better check ct abd and pelvis and chest paraneo (2) HTN (hypertension) Qualifiers: Hypertension type: other secondary hypertension Qualified Code(s): I15.8 - Other secondary hypertension
--- NOTE | 2018-05-03 07:36 | P.CONCC ---
History of Present Illness Service: Critical care medicine Consult date: 05/03/18 Requesting Physician: Roxanna Magana Reason for Consult: Angioedema/acute respiratory failure Primary Care Provider: UNKNOWN Chief Complaint: Acute encephalopathy/hypertensive emergency History of Present Illness: This is a 68-year-old female. Admission 04/30/2018. Date of consultation 05/03/2018. Past medical history includes non-Hodgkin's lymphoma in remission since 2008, history of CVA, underlying dementia disorder NOS, hypertension, hyperlipidemia, peripheral vascular disease with known right carotid stenosis, diabetes mellitus, gout, and a known right clavicle fracture. She has a right [id number] amputation from peripheral vascular disease. Patient presents to [facility] 04/30 with recent admissions for catatonia state. Patient was treated under psychiatry to be medically cleared by family medicine practice with little improvement in her symptomatology. She presented here with elevated blood pressure and altered mental status. She received clonidine and hydralazine the results and was started on nicardipine drip and transferred to the intensive care unit. She is also on lisinopril which was discontinued recently. Her nicardipine drip is currently off. This morning, was notified by the RN patient had a swollen tongue and has had increasing oxygen requirements. Patient required emergent intubation with glide scope without complication. Most likely is introduced secondary to JACE inhibitor. Patient is currently on famotidine, diphenhydramine and received 1 dose of steroids. Review of Systems unobtainable due to mental condition PMFSH - History History Provided By: Patient, Family Member - Medical History Medical History: Medical History (Last Reviewed 05/03/18 @ 07:39 by Norberto Escalante MD) Anxiety Dementia Diabetes Gout H/O fracture of wrist HTN (hypertension) High cholesterol History of stroke Non-Hodgkin lymphoma - Surgical History Surgical History: Surgical History (Last Reviewed 05/03/18 @ 07:39 by Norberto Escalante MD) Above knee amputation of right lower extremity - Family History Family History: Family History (Last Reviewed 05/03/18 @ 07:39 by Norberto Escalante MD) Father Heart disease Brother Leukemia - Tobacco History Second Hand Smoke Exposure: Yes Smoking Status: Unknown if ever smoked Tobacco Type: Cigarettes - Alcohol History How Often Do You Have a Drink Containing Alcohol: Unable to Obtain - Substance Use History Substance History: Past History - Immunization History Hx Influenza Vaccine This Season: Unable to Assess Medications and Allergies Active Medications: Active Medications Acetaminophen (Tylenol Liq) 650 mg NG/OG Q6H PRN PRN Reason: PAIN 1-10 AND/OR FEVER >101F Al Hydroxide/Mg Hydroxide (Milk Of Magnesia Liq) 30 ml PO Q12H PRN PRN Reason: Mild Constipation Albuterol (Duoneb Neb (Eloy)) 1 ampul NEB Q4HR NEB ELOY Albuterol (Albuterol Neb (Prn)) 2.5 mg NEB Q2HR NEB PRN PRN Reason: DYSPNEA Artificial Tears (Tears Naturale Opth Drops) 1 drop EACH EYE Q8H ELO[facility] Aspirin (Aspirin Chew) 81 mg NG/OG DAILY [facility] Last Admin: 05/02/18 08:00 Dose: 81 mg Atorvastatin Calcium (Lipitor) 40 mg NG/OG HS [facility] Last Admin: 05/02/18 20:24 Dose: 40 mg Bisacodyl (Dulcolax Supp) 10 mg RECTAL DAILY PRN PRN Reason: SEVERE CONSITIPATION Chlorhexidine Gluconate (Chlorhexidine 2% Cloth) 3 pack TOPICAL DAILY@0400 [facility] Stop: 05/06/18 03:59 Last Admin: 05/03/18 04:08 Dose: 3 pack Chlorhexidine Gluconate (Chlorhexidine 2% Cloth) 3 pack TOPICAL DAILY@0400 PRN PRN Reason: Extra cloth needed Stop: 05/06/18 03:59 Chlorhexidine Gluconate (Peridex 0.12% Oral Kit) 15 ml OROPHARYNG BID@0800, 2000 [facility] Dextrose (D50w Vial) 50 ml IV.PUSH UNSCH PRN PRN Reason: PER HYPOGLYCEMIA PROTOCOL Diphenhydramine HCl (Benadryl Inj) 50 mg IV.PUSH Q6H [facility] Stop: 05/05/18 07:59 Escitalopram Oxalate (Lexapro) 20 mg NG/OG DAILY [facility] Last Admin: 05/02/18 08:00 Dose: 20 mg Famotidine (Pepcid Pf Inj) 20 mg IV.PUSH Q12HR [facility] Gabapentin (Neurontin) 600 mg PO BID [facility] Last Admin: 05/01/18 08:56 Dose: Not Given Glucagon (Glucagon Inj) 1 mg OTHER PRN PRN PRN Reason: for Hypoglycemia Protocol Hydralazine HCl (Apresoline) 25 mg NG/OG QID PRN PRN Reason: SEE LABEL COMMENTS Potassium Chloride/Sodium Chloride (Ns + Kcl 20 Meq Inj) 1,000 mls @ 100 mls/ hr IV.CONT .Q10H [facility] Last Admin: 05/03/18 01:22 Dose: Not Given Levetiracetam (Keppra 1000 Mg/100 Ml Premix) 100 mls @ 400 mls/hr IV.SIG Q12H [facility] Last Infusion: 05/03/18 01:21 Dose: Infused Nicardipine HCl 25 mg/ Sodium (Chloride) 250 mls @ 50 mls/hr IV.CONT TITRATE PRN; Protocol PRN Reason: Per Protocol Last Admin: 05/03/18 04:38 Dose: 15 mg/hr, 150 mls/hr Propofol (Diprivan 1000 Mg/100 Ml Inj) 1,000 mg in 100 mls @ 1.95 mls/hr IV.CONT TITRATE PRN; Protocol PRN Reason: Per Protocol Fentanyl (Fentanyl 10 Mcg/Ml Premix Drip) 2,500 mcg in 250 mls @ 5 mls/hr IV.SIG TITRATE PRN; Protocol PRN Reason: Per Protocol Insulin Aspart (Novolog Insulin Correctional Sugar Inj) 0 unit SQ ACHS AND 3AM ELOY; Protocol Last Admin: 05/03/18 04:08 Dose: Not Given Lactulose (Lactulose Liq) 30 ml PO DAILY PRN PRN Reason: SEVERE CONSITIPATION Lorazepam (Ativan Inj) 1 mg IV.PUSH Q6H [facility] Last Admin: 05/03/18 00:52 Dose: 1 mg Methylprednisolone Sodium Succinate (Solumedrol Inj) 125 mg IV.PUSH ONCE ONE Stop: 05/03/18 07:28 Miscellaneous Medication () 1 each OROPHARYNG 0000,0400,1200,1600 [facility] Senna/Docusate Sodium (Aleah-Colace) 1 tab PO BID [facility] Last Admin: 05/02/18 21:11 Dose: Not Given Sennosides (Senokot) 17.2 mg PO Q12H PRN PRN Reason: Moderate Constipation Sodium Chloride (Ns Flush) 2 ml IV.FLUSH BID [facility] Last Admin: 05/02/18 21:10 Dose: 2 ml Sodium Chloride (Ns Flush) 2 ml IV.FLUSH UNSCH PRN PRN Reason: FLUSH AFTER USING IV ACCESS Thiamine HCl (Thiamine Inj) 100 mg IM DAILY [facility] Last Admin: 05/02/18 07:59 Dose: 100 mg Allergies Allergy/AdvReac Type Severity Reaction Status Date / Time iodine Allergy Swelling Verified 04/19/18 15:50 Home Medications Medication Instructions Recorded Confirmed Type glimepiride 2 mg PO QAM 04/18/18 04/19/18 History lisinopril 10 mg PO DAILY 04/18/18 04/19/18 History lorazepam 0.5 mg PO DAILY 04/18/18 04/19/18 History metformin 500 mg PO DAILY 04/18/18 04/19/18 History phenobarbital 15 mg PO DAILY PRN 04/18/18 04/18/18 History simvastatin 80 mg PO QPM 04/18/18 04/19/18 History tramadol 150 mg PO PRN 04/18/18 04/19/18 History escitalopram oxalate 04/19/18 04/19/18 History gabapentin 04/19/18 04/19/18 History levetiracetam 04/19/18 History quetiapine 04/19/18 04/19/18 History Physical Exam Vital signs: Vital Signs 05/02/18 08:00 05/02/18 08:01 05/02/18 08:05 Temperature 97.8 F Pulse Rate 83 88 80 Respiratory Rate 43 H 46 H 28 H Blood Pressure 152/71 H 152/71 H 122/55 L Pulse Oximetry 97 96 95 05/02/18 08:10 05/02/18 08:15 05/02/18 08:20 Temperature Pulse Rate 81 87 85 Respiratory Rate 28 H 28 H 36 H Blood Pressure 115/58 L 143/66 H 144/67 H Pulse Oximetry 95 96 95 05/02/18 08:25 05/02/18 08:30 05/02/18 08:35 Temperature Pulse Rate 81 79 77 Respiratory Rate 29 H 27 H 47 H Blood Pressure 115/56 L 123/58 L 127/56 L Pulse Oximetry 94 L 95 94 L 05/02/18 08:40 05/02/18 08:45 05/02/18 08:50 Temperature Pulse Rate 73 74 74 Respiratory Rate 49 H 50 H 34 H Blood Pressure 119/58 L 117/58 L 114/56 L Pulse Oximetry 94 L 94 L 94 L 05/02/18 08:55 05/02/18 09:00 05/02/18 09:05 Temperature Pulse Rate 74 77 80 Respiratory Rate 26 H 29 H 24 Blood Pressure 115/58 L 108/58 L 121/59 L Pulse Oximetry 95 92 L 94 L 05/02/18 11:30 05/02/18 11:35 05/02/18 11:45 Temperature 97.6 F Pulse Rate 76 78 78 Respiratory Rate 26 H 27 H 21 Blood Pressure 112/56 L 112/56 L 114/57 L Pulse Oximetry 98 98 05/02/18 11:55 05/02/18 12:00 05/02/18 12:15 Temperature Pulse Rate 73 75 77 Respiratory Rate 24 23 26 H Blood Pressure 122/60 118/57 L 127/57 L Pulse Oximetry 100 100 05/02/18 12:30 05/02/18 12:45 05/02/18 13:00 Temperature Pulse Rate 78 78 79 Respiratory Rate 24 26 H 27 H Blood Pressure 125/58 L 125/64 130/60 Pulse Oximetry 100 99 98 05/02/18 14:00 05/02/18 16:00 05/02/18 16:15 Temperature 98.0 F Pulse Rate 87 86 86 Respiratory Rate 30 H 29 H Blood Pressure 137/64 135/62 Pulse Oximetry 96 97 05/02/18 16:30 05/02/18 16:45 05/02/18 17:00 Temperature Pulse Rate 85 83 83 Respiratory Rate 29 H 23 26 H Blood Pressure 136/63 128/60 131/60 Pulse Oximetry 97 97 97 05/02/18 17:15 05/02/18 17:30 05/02/18 17:45 Temperature Pulse Rate 87 89 85 Respiratory Rate 25 H 27 H 26 H Blood Pressure 131/61 126/68 126/55 L Pulse Oximetry 95 89 L 88 L 05/02/18 18:00 05/02/18 18:15 05/02/18 18:30 Temperature Pulse Rate 86 84 83 Respiratory Rate 26 H 27 H 26 H Blood Pressure 128/60 124/60 126/61 Pulse Oximetry 100 86 L 98 05/02/18 18:45 05/02/18 19:00 05/02/18 19:15 Temperature Pulse Rate 84 84 88 Respiratory Rate 24 25 H 27 H Blood Pressure 124/60 122/60 125/61 Pulse Oximetry 95 90 L 96 05/02/18 19:30 05/02/18 19:45 05/02/18 20:00 Temperature 99.5 F Pulse Rate 88 89 90 Respiratory Rate 29 H 29 H 26 H Blood Pressure 123/60 122/59 L 123/60 Pulse Oximetry 93 L 100 99 05/02/18 20:15 05/02/18 20:30 05/02/18 20:45 Temperature Pulse Rate 85 85 84 Respiratory Rate 29 H 28 H 27 H Blood Pressure 121/56 L 122/60 124/60 Pulse Oximetry 98 97 94 L 05/02/18 21:00 05/02/18 21:15 05/02/18 21:30 Temperature Pulse Rate 84 86 85 Respiratory Rate 28 H 28 H 27 H Blood Pressure 122/57 L 123/58 L 126/58 L Pulse Oximetry 97 97 97 05/02/18 21:45 05/02/18 22:00 05/02/18 22:15 Temperature Pulse Rate 86 89 86 Respiratory Rate 29 H 27 H 29 H Blood Pressure 128/59 L 131/62 123/55 L Pulse Oximetry 98 98 96 05/02/18 22:30 05/02/18 22:45 05/02/18 23:00 Temperature Pulse Rate 87 83 83 Respiratory Rate 29 H 29 H 27 H Blood Pressure 129/60 119/54 L 118/59 L Pulse Oximetry 98 96 95 05/02/18 23:15 05/02/18 23:30 05/02/18 23:45 Temperature Pulse Rate 85 92 H 89 Respiratory Rate 27 H 30 H 29 H Blood Pressure 125/61 132/57 L 122/59 L Pulse Oximetry 97 98 97 05/03/18 00:00 05/03/18 00:15 05/03/18 00:30 Temperature Pulse Rate 88 86 87 Respiratory Rate 27 H 25 H 26 H Blood Pressure 129/59 L 125/61 125/57 L Pulse Oximetry 98 97 98 05/03/18 00:45 05/03/18 01:00 05/03/18 01:15 Temperature Pulse Rate 83 83 80 Respiratory Rate 27 H 28 H 26 H Blood Pressure 120/58 L 124/59 L 120/58 L Pulse Oximetry 97 96 96 05/03/18 01:30 05/03/18 01:45 05/03/18 02:00 Temperature Pulse Rate 81 85 86 Respiratory Rate 24 26 H 26 H Blood Pressure 120/58 L 126/61 124/59 L Pulse Oximetry 95 96 95 05/03/18 02:15 05/03/18 02:30 05/03/18 02:45 Temperature Pulse Rate 89 91 H 89 Respiratory Rate 25 H 28 H 26 H Blood Pressure 126/61 125/60 124/58 L Pulse Oximetry 97 97 97 05/03/18 03:00 05/03/18 03:15 05/03/18 03:30 Temperature Pulse Rate 92 H 90 87 Respiratory Rate 28 H 25 H 26 H Blood Pressure 127/59 L 123/60 112/56 L Pulse Oximetry 96 95 96 05/03/18 03:45 05/03/18 04:00 05/03/18 04:15 Temperature Pulse Rate 87 90 86 Respiratory Rate 27 H 29 H 28 H Blood Pressure 118/53 L 125/60 121/58 L Pulse Oximetry 96 95 95 05/03/18 04:30 05/03/18 05:00 05/03/18 06:00 Temperature Pulse Rate 86 92 H 92 H Respiratory Rate 25 H 25 H 31 H Blood Pressure 127/61 Pulse Oximetry 96 97 92 L 05/03/18 06:44 05/03/18 06:46 05/03/18 06:51 Temperature Pulse Rate 109 H 93 H Respiratory Rate 16 20 16 Blood Pressure 134/65 102/55 L Pulse Oximetry 89 L 87 L 88 L 05/03/18 06:54 05/03/18 06:56 05/03/18 06:58 Temperature Pulse Rate 92 H 92 H 91 H Respiratory Rate 16 16 16 Blood Pressure 103/58 L 97/55 L 100/54 L Pulse Oximetry 89 L 89 L 90 L 05/03/18 07:00 05/03/18 07:02 Temperature Pulse Rate 91 H 90 Respiratory Rate 16 16 Blood Pressure 96/51 L 101/55 L Pulse Oximetry 87 L 90 L Intake & Output 05/02/18 05/03/18 05/03/18 18:59 06:59 18:59 Intake Total 2397 / 2397 2625 / 2625 Output Total 1200 / 1200 600 / 600 Balance 1197 / 1197 2024 / 2024 Weight 65 kg Intake: IV 1850 / 1850 2350 / 2350 NS + KCl 20 mEq Inj 1,000 ML @ 500 / 500 1000 / 1000 100 mls/hr IV.CONT .Q10H [facility] Rx #:[id number] Cardene Inj 25 MG In NS Inj 240 1250 / 1250 1250 / 1250 ML @ 5 MG/HR 50 mls/hr IV.CONT TITRATE PRN Rx#:[id number] Keppra 1000 mg/100 mL Premix 100 / 100 100 / 100 100 ML @ 400 mls/hr IV.SIG Q12H [facility] Rx#:[id number] Oral 0 / 0 Tube Feeding 447 / 447 150 / 150 Tube Irrigant 125 / 125 Water Bolus Amount 100 / 100 Output: Urine 1200 / 1200 600 / 600 Other: # Incontinent Voids 2 Date of Last Bowel Movement 05/02/18 05/02/18 # Bowel Movements 2 - Constitutional no acute distress - Routine HEENT Exam Head: Present: normocephalic, atraumatic Eye: Present: EOMI, PERRL ENT: Present: mucous membranes moist Comments: Unable to appreciate uvula. tongue swollen. - Routine Neck Exam Present: supple, full ROM, swelling. Absent: tracheal deviation - Routine Respiratory Exam Present: CTA bilaterally. Absent: accessory muscle use - Routine Cardiovascular Exam Present: RRR, S1, S2. Absent: murmur - Routine Abdominal Exam Present: soft, normoactive bowel sounds - Routine Exam Patient deferred: external exam, groin exam, perineal exam - Routine Extremities Exam Absent: cyanosis, clubbing, edema Comments: Right [id number] amputation well-healed - Routine Skin Exam Present: intact - Routine Neurological Exam Present: alert, CN II-XII intact. Absent: oriented X3, sensory deficit, motor deficit - Detailed Neurological Exam: Coma Scale Eye Opening: Spontaneous Verbal Response: Confused Motor Response: Localizing Jessica Coma Scale Total: 13 - Routine Psychiatric Exam Present: unable to assess Septic Shock Reassessment Septic shock perfusion: reassessment completed Assessment and Plan - Assessment and Plan Plan: Neuro/Psych: Acute encephalopathy Possible PRES History of CVA Seizure disorder NOS [place] MRI brain revealed vasogenic edema in the bilateral posterior occipital lobes. Possible differential includes PRES Evaluate Dr. Mehta/neurology. Continue aspirin 81 mg daily. Goal blood pressure between 110 120 systolic. Lumbar puncture 05/02 unremarkable Remains on levetiracetam 1000 mg twice daily for seizures On is escitalopram 20 mg daily Continue gabapentin 60o mg twice daily Holding benzodiazepines CV: Hypertensive emergency Hyper lipedema Peripheral vascular disease Noted 2D echocardiogram 05/01 revealed EF around 55-60 history no regional response. Small pericardial effusion. Goal keep systolic blood pressure around 110-120 per neurology's recommendations Previously on hydralazine, clonidine scheduled. Nicardipine drip currently on hold. Continue atorvastatin 20 mg daily Carotid Dopplers revealed left stenosis 50-69%. Right less than 50%. Resp: Acute respiratory failure secondary angioedema [facility] 14500/1.05/14/49 Ventilator bundle Albuterol/ipratropium aerosols every 4 hours with albuterol every 2 as needed dyspnea No spontaneous breathing trials until angioedema resolving Follow-up on post intubation chest x-ray and ABG Currently on scheduled diphenhydramine 50 mg IV every 6 hours, famotidine 20 mg IV twice daily and received 1 dose of methylprednisolone succinate 140 mg x1 GI: N.p.o. status NG tube to low intermittent wall suction Famotidine for GI prophylaxis Docusate serum/senna 1 tablet twice daily for bowel regimen : Currently withPeriwick catheter. Endo: Diabetes mellitus type 2 Gout Sliding scale insulin with aspart insulin every 6 hours low regimen Accu-Cheks to maintain euglycemia Check TSH Holding metformin and glimepiride. Renal: Creatinine currently within normal limits Monitor urine output Acute I's and O's Heme: Leukocytosis Monitor CBC daily. Follow trends. No indication for transfusion of blood products at this time ID: Check sputum Monitor for signs of hematology infection FEN: Replace electrolytes as clinically indicated per ICU electrolyte protocol Currently on normal saline with 20 mEq of potassium chloride 100 cc an hour MSK: Right [id number] amputation PT/OT evaluate and treat Access -Utilize peripheral IV. Central line if indicated Prophylaxis -GI -famotidine -DVT -SCD/heparin subcu Level 3 consult Code Status: Full code
[2018-05-03 07:37] LABS: ABG Base Excess -1.9 mmol/L (-2-2); ABG PCO2 24 mmHg (38-42); ABG PO2 344 mmHG (61-120)
--- NOTE | 2018-05-03 07:37 | XR ---
EXAM DATE: 05/03/2018 7:29 AM EST AGE/SEX: 68 years / Female INDICATIONS: Evaluate ET tube placement. CLINICAL DATA: This is the patient's initial encounter. Patient reports that signs and symptoms have been present for 1 day and indicates a pain score of Nonresponsive. MEDICAL/SURGICAL HISTORY: Non-responsive. Non-responsive. COMPARISON: [facility], CHEST 1V SINGLE AP, 04/19/2018. . FINDINGS: An endotracheal tube has its tip at the level of the tim directed towards the right mainstem bronc hus. This should be pulled back 3 cm for more optimal positioning. Scattered atelectatic changes are noted within the lung bases. The heart is stable. Degenerative changes and scoliosis of the thoracic spine are noted. CONCLUSION: 1. Endotracheal tube is low in position at the level of the tim and directed towards the right ma instem bronchus. This should be pulled back 3 cm for more optimal positioning. 2. Scattered atelectatic changes bilaterally. 3. Degenerative changes and scoliosis of the thoracic spine. Electronically signed by: César Jimenez MD Board Certified Radiologist 05/03/2018 7:35 AM EST
--- NOTE | 2018-05-03 07:38 | XR ---
EXAM DATE: 05/03/2018 7:31 AM EST AGE/SEX: 68 years / Female INDICATIONS: Evaluate ET tube adjustment. CLINICAL DATA: This is the patient's subsequent encounter. Patient reports that signs and symptoms h ave been present for 1 day and indicates a pain score of Nonresponsive. MEDICAL/SURGICAL HISTORY: Non-responsive. Non-responsive. COMPARISON: [facility], CHEST 1V SINGLE AP, 05/03/2018. . FINDINGS: The endotracheal tube is noted in good position 3 cm above the tim. Scattered bibasilar atelectasi s is stable. The heart is stable. Degenerative changes and scoliosis of the thoracic spine are noted. CONCLUSION: 1. Improved position of the endotracheal tube which is now 3 cm above the tim. 2. Scattered bibasilar atelectasis. 3. Degenerative changes and scoliosis of the thoracic spine. Electronically signed by: César Jimenez MD Board Certified Radiologist 05/03/2018 7:37 AM EST
[2018-05-03 07:42] LABS: Magnesium 1.8 mg/dL (1.5-2.5); Phosphorus 3.6 mg/dL (2.5-4.9)
[2018-05-03 07:45] LABS: Troponin I 0.05 ng/mL (0.02-0.05)
[2018-05-03] MEDS: Propofol 1000 mg/100 ml Inj 1,000 MG/100 ML BOTTLE IV.CONT PRN ×4 (07:49→20:39)
[2018-05-03] MEDS ORDERED: Potassium Chloride 25 MEQ Effervescent Tablet PO PRN (08:11)
[2018-05-03] MEDS ORDERED: Potassium Chlor 40 mEq Premix 40 MEQ/100 ML PIGGYBACK IV.SIG PRN ×2 (08:11)
[2018-05-03] MEDS ORDERED: Potassium Phosphate Inj 30 MMOL in Sodium Chlor 0.9% Inj 250 ML IV.SIG PRN (08:11)
[2018-05-03] MEDS ORDERED: Sodium Phosphate Inj 30 MMOL in Sodium Chlor 0.9% Inj 250 ML IV.SIG PRN (08:11)
[2018-05-03] MEDS ORDERED: Magnesium Oxide 400 MG Tablet PO PRN (08:11)
[2018-05-03] MEDS ORDERED: Potassium Phosphate 500 MG Soluble Tablet PO PRN ×2 (08:11)
[2018-05-03] MEDS ORDERED: Magnesium Sulfate Inj 2 GM in Sodium Chlor 0.9% Inj 96 ML IV.SIG PRN (08:11)
[2018-05-03] MEDS ORDERED: Potassium Chlor 20 mEq Premix 20 MEQ/100 ML PIGGYBACK IV.SIG PRN (08:11)
[2018-05-03] MEDS ORDERED: Magnesium Sulfate Inj 4 GM in Sodium Chlor 0.9% Inj 92 ML IV.SIG PRN (08:11)
[2018-05-03] MEDS: Famotidine PF Inj 20 MG/2 ML Vial IV.PUSH SCH ×2 (08:43→20:41)
[2018-05-03] MEDS: Chlorhexidine 0.12% Oral Kit 15 ML UDC OROPHARYNG SCH ×2 (08:44→20:42)
[2018-05-03] MEDS: Artificial Tears Opth Drops 15 ML Bottle EACH EYE SCH ×3 (08:44→23:23)
[2018-05-03] MEDS: Senna/Docusate Sodium 8.6/50 MG Tablet PO SCH ×2 (08:45→20:42)
--- NOTE | 2018-05-03 11:03 | P.PNFP ---
Subjective Interval history: 68 yo female with dementia, DM, HTN admitted for hypertension related to catatonia (due likely to depression). Early this morning she had respiratory distress and severe tongue swelling. Critical care was consulted and intubated her for likely angioedema. This morning she is intubated and unable to provide history. RN at bedside reports no events/concerns besides the angioedema leading to intubation. <Brian Jordan Tyson S - 05/03/18 11:02> Results - Labs Result diagrams: 05/04/18 05:40 05/04/18 05:40 <Roxanna Magana - 05/04/18 11:07> Abnormal lab results 05/03/18 05/03/18 05/03/18 Range/Units 11:37 18:13 18:45 RBC (4.00-5.30) mil/mm3 Hct (35.0-46.0) % Neut % (Auto) (16.0-70.0) % Neut # (Auto) (1.8-7.7) th/mm3 PT (9.8-11.6) sec Potassium (3.5-5.1) meq/L Chloride (98-107) meq/L BUN (7-18) mg/dL Estimated GFR (>89) mL/min POC Glucose 220 H 169 H (68-110) mg/dl Random Glucose (74-106) mg/dL Calcium (8.5-10.1) mg/dL AST (15-37) U/L Total Protein (6.4-8.2) g/dL Albumin (3.4-5.0) g/dL Urine Eosinophils 0-2 H (None Seen) /HPF 05/03/18 05/04/18 05/04/18 Range/Units 23:59 05:40 05:40 RBC 3.71 L (4.00-5.30) mil/mm3 Hct 34.0 L (35.0-46.0) % Neut % (Auto) 80.4 H (16.0-70.0) % Neut # (Auto) 8.3 H (1.8-7.7) th/mm3 PT 12.3 H (9.8-11.6) sec Potassium (3.5-5.1) meq/L Chloride (98-107) meq/L BUN (7-18) mg/dL Estimated GFR (>89) mL/min POC Glucose 230 H (68-110) mg/dl Random Glucose (74-106) mg/dL Calcium (8.5-10.1) mg/dL AST (15-37) U/L Total Protein (6.4-8.2) g/dL Albumin (3.4-5.0) g/dL Urine Eosinophils (None Seen) /HPF 05/04/18 Range/Units 05:40 RBC (4.00-5.30) mil/mm3 Hct (35.0-46.0) % Neut % (Auto) (16.0-70.0) % Neut # (Auto) (1.8-7.7) th/mm3 PT (9.8-11.6) sec Potassium 3.4 L D (3.5-5.1) meq/L Chloride 111 H (98-107) meq/L BUN 19 H (7-18) mg/dL Estimated GFR 71 L (>89) mL/min POC Glucose (68-110) mg/dl Random Glucose 246 H (74-106) mg/dL Calcium 7.8 L (8.5-10.1) mg/dL AST 13 L (15-37) U/L Total Protein 5.4 L (6.4-8.2) g/dL Albumin 2.5 L (3.4-5.0) g/dL Urine Eosinophils (None Seen) /HPF Short CBC 05/04/18 Range/Units 05:40 WBC 10.3 (4.0-11.0) th/mm3 Hgb 11.7 (11.6-15.3) gm/dL Hct 34.0 L (35.0-46.0) % Plt Count 279 (150-450) th/mm3 BMP 05/04/18 05:40 Sodium 142 Potassium 3.4 L D Chloride 111 H Carbon Dioxide 21.0 BUN 19 H Creatinine 0.81 Calcium 7.8 L Cardiac Enzymes 05/04/18 Range/Units 05:40 Total Creatine Kinase 86 (26-192) U/L Liver Function 05/04/18 Range/Units 05:40 Total Bilirubin 0.4 (0.2-1.0) mg/dL AST 13 L (15-37) U/L ALT 11 (10-53) U/L Alkaline Phosphatase 67 (45-117) U/L Albumin 2.5 L (3.4-5.0) g/dL <Roxanna Magana M - 05/04/18 11:07> Abnormal lab results 05/02/18 05/02/18 05/02/18 Range/Units 11:30 11:30 11:30 WBC (4.0-11.0) th/mm3 [place] % (Auto) (0.0-8.0) % Neut # (Auto) (1.8-7.7) th/mm3 [place] # (Auto) (0.0-0.9) th/mm3 ABG pH (7.380-7.420) ABG pCO2 (38-42) mmHg ABG pO2 (61-120) mmHG ABG HCO3 (22-26) mmol/L Chloride (98-107) meq/L Estimated GFR (>89) mL/min POC Glucose (68-110) mg/dl Random Glucose (74-106) mg/dL Calcium (8.5-10.1) mg/dL CSF RBC (1) 1 H (None) /mm3 CSF RBC (4) 1 H (None) /mm3 CSF Glucose 91 H (40-80) mg/dL 05/02/18 05/02/18 05/02/18 Range/Units 12:02 16:15 21:13 WBC (4.0-11.0) th/mm3 [place] % (Auto) (0.0-8.0) % Neut # (Auto) (1.8-7.7) th/mm3 [place] # (Auto) (0.0-0.9) th/mm3 ABG pH (7.380-7.420) ABG pCO2 (38-42) mmHg ABG pO2 (61-120) mmHG ABG HCO3 (22-26) mmol/L Chloride (98-107) meq/L Estimated GFR (>89) mL/min POC Glucose 133 H 171 H 207 H (68-110) mg/dl Random Glucose (74-106) mg/dL Calcium (8.5-10.1) mg/dL CSF RBC (1) (None) /mm3 CSF RBC (4) (None) /mm3 CSF Glucose (40-80) mg/dL 05/03/18 05/03/18 05/03/18 Range/Units 04:02 04:30 04:30 WBC 13.7 H (4.0-11.0) th/mm3 [place] % (Auto) 8.3 H (0.0-8.0) % Neut # (Auto) 9.4 H (1.8-7.7) th/mm3 [place] # (Auto) 1.1 H (0.0-0.9) th/mm3 ABG pH (7.380-7.420) ABG pCO2 (38-42) mmHg ABG pO2 (61-120) mmHG ABG HCO3 (22-26) mmol/L Chloride 115 H (98-107) meq/L Estimated GFR 82 L (>89) mL/min POC Glucose 147 H (68-110) mg/dl Random Glucose 159 H (74-106) mg/dL Calcium 7.6 L (8.5-10.1) mg/dL CSF RBC (1) (None) /mm3 CSF RBC (4) (None) /mm3 CSF Glucose (40-80) mg/dL 05/03/18 Range/Units 07:20 WBC (4.0-11.0) th/mm3 [place] % (Auto) (0.0-8.0) % Neut # (Auto) (1.8-7.7) th/mm3 [place] # (Auto) (0.0-0.9) th/mm3 ABG pH 7.54 H* (7.380-7.420) ABG pCO2 24 L* (38-42) mmHg ABG pO2 344 H (61-120) mmHG ABG HCO3 21 L (22-26) mmol/L Chloride (98-107) meq/L Estimated GFR (>89) mL/min POC Glucose (68-110) mg/dl Random Glucose (74-106) mg/dL Calcium (8.5-10.1) mg/dL CSF RBC (1) (None) /mm3 CSF RBC (4) (None) /mm3 CSF Glucose (40-80) mg/dL Short CBC 05/03/18 Range/Units 04:30 WBC 13.7 H (4.0-11.0) th/mm3 Hgb 12.8 (11.6-15.3) gm/dL Hct 39.3 (35.0-46.0) % Plt Count 279 (150-450) th/mm3 BMP 05/03/18 04:30 Sodium 145 Potassium 4.3 Chloride 115 H Carbon Dioxide 22.5 BUN 15 Creatinine 0.71 Calcium 7.6 L Cardiac Enzymes 05/03/18 Range/Units 04:30 Total Creatine Kinase 126 (26-192) U/L Troponin I 0.05 (0.02-0.05) ng/mL <TorresJordan Fontana S - 05/03/18 11:02> - Imaging Impressions Abdomen/Pelvis CT 05/03/18 00:00 CONCLUSION: 1. Questionable mass within the body of the pancreas measuring 1.7 x 2.6 cm. MRI of the abdomen with contrast may be helpful for further characterization of this questionable mass if clinically indicated. 2. Gallbladder wall is mildly thickened. If there is clinical concern for acute cholecystitis, a hepatobiliary scan may be helpful to confirm cystic duct obstruction. 3. Liver is enlarged and appears somewhat nodular in contour raising the possibility of cirrhosis. No focal mass is noted. 4. Small bilateral pleural effusions with adjacent alveolar consolidations are noted. 5. Tiny pericardial effusion. 6. Minimal ascites. 7. 11 mm calcified fibroid within the uterus. 8. Degenerative changes and scoliosis of the thoracolumbar spine. Chest CT 05/03/18 00:00 CONCLUSION: 1. Small bilateral pleural effusions. 2. Posterior bibasilar alveolar consolidations consistent with compressive atelectasis and/or pneumonia. Clinical correlation is recommended. 3. Tiny pericardial effusion. 4. Cardiomegaly and coronary artery calcifications. 5. No pulmonary nodule, mass or lymphadenopathy. 6. Scoliosis and degenerative changes involving the thoracic spine. <Roxanna Magana - 05/04/18 11:07> Impressions Lumbar Puncture Fluoroscopy 05/02/18 00:00 CONCLUSION: 1. Uncomplicated fluoroscopically guided lumbar puncture. Chest X-Ray 05/03/18 07:08 CONCLUSION: 1. Improved position of the endotracheal tube which is now 3 cm above the tim. 2. Scattered bibasilar atelectasis. 3. Degenerative changes and scoliosis of the thoracic spine. Chest X-Ray 05/03/18 07:09 CONCLUSION: 1. Endotracheal tube is low in position at the level of the tim and directed towards the right mainstem bronchus. This should be pulled back 3 cm for more optimal positioning. 2. Scattered atelectatic changes bilaterally. 3. Degenerative changes and scoliosis of the thoracic spine. Carotid Doppler Study 05/01/18 00:00 CONCLUSION: 1. Elevation of the peak systolic velocity of the left internal carotid artery suggesting 50-69% stenosis although the ICA/CCA ratio on the left suggests less than 50% stenosis. CTA of the carotids would be helpful to resolve these discordant findings. There is also elevation of the peak systolic velocity of the left external carotid artery in the 50-69% stenosis range. 2. Less than 50% stenosis involving the right internal carotid artery. 3. Moderate atherosclerotic plaque formation within the carotid bulbs and proximal internal carotid arteries. Head MRI 04/26/18 21:22 CONCLUSION: 1. Diffuse cerebral atrophy is noted. 2. Moderate to severe periventricular and subcortical white matter small vessel ischemic changes are noted bilaterally. 3. Old lacunar infarcts are noted within the left abraham radiata. 4. No acute infarct, acute hemorrhage, midline shift or extra-axial bleed is noted. 5. No abnormal enhancing mass lesion is noted. Head MRA 04/27/18 13:41 CONCLUSION: 1. Negative MRA [place] ([place]) non contrast. Head/Brain Mag Res Venography 04/27/18 13:42 CONCLUSION: 1. Negative MRV Brain non contrast. <Torres R3,Jordan S - 05/03/18 11:02> Physical Exam Vital signs: Vital Signs 05/03/18 12:00 05/03/18 14:00 05/03/18 15:26 Temperature Pulse Rate 81 72 Respiratory Rate 14 Blood Pressure Pulse Oximetry 96 05/03/18 16:00 05/03/18 16:15 05/03/18 16:30 Temperature 98.7 F Pulse Rate 71 72 71 Respiratory Rate 14 14 14 Blood Pressure 112/59 L 113/64 118/67 Pulse Oximetry 96 96 99 05/03/18 16:35 05/03/18 16:45 05/03/18 17:00 Temperature Pulse Rate 71 73 74 Respiratory Rate 15 14 14 Blood Pressure 119/66 116/57 L Pulse Oximetry 100 98 05/03/18 17:15 05/03/18 17:30 05/03/18 17:45 Temperature Pulse Rate 74 74 72 Respiratory Rate 14 14 14 Blood Pressure 115/59 L 109/58 L 111/57 L Pulse Oximetry 96 96 96 05/03/18 18:00 05/03/18 18:15 05/03/18 18:30 Temperature Pulse Rate 75 74 74 Respiratory Rate 16 14 14 Blood Pressure 119/62 136/67 139/64 Pulse Oximetry 100 100 100 05/03/18 18:45 05/03/18 19:00 05/03/18 19:15 Temperature Pulse Rate 78 78 79 Respiratory Rate 14 14 14 Blood Pressure 145/68 H 140/67 140/68 Pulse Oximetry 94 L 100 100 05/03/18 19:30 05/03/18 19:45 05/03/18 20:00 Temperature 96.7 F L Pulse Rate 79 79 81 Respiratory Rate 14 14 14 Blood Pressure 142/69 H 144/70 H 149/72 H Pulse Oximetry 100 100 100 05/03/18 20:13 05/03/18 20:15 05/03/18 20:30 Temperature Pulse Rate 81 81 86 Respiratory Rate 14 14 14 Blood Pressure 149/70 H 152/72 H Pulse Oximetry 100 100 100 05/03/18 20:45 05/03/18 21:00 05/03/18 21:15 Temperature Pulse Rate 93 H 97 H 96 H Respiratory Rate 14 14 14 Blood Pressure 157/76 H 163/75 H 155/64 H Pulse Oximetry 100 100 100 05/03/18 21:30 05/03/18 21:45 05/03/18 22:00 Temperature Pulse Rate 93 H 92 H 92 H Respiratory Rate 14 14 14 Blood Pressure 152/70 H 152/70 H 153/69 H Pulse Oximetry 100 100 100 05/03/18 22:15 05/03/18 22:30 05/03/18 22:45 Temperature Pulse Rate 92 H 93 H 92 H Respiratory Rate 14 14 14 Blood Pressure 150/67 H 150/68 H 148/66 H Pulse Oximetry 100 100 100 05/03/18 23:00 05/03/18 23:15 05/03/18 23:30 Temperature Pulse Rate 91 H 91 H 91 H Respiratory Rate 14 14 14 Blood Pressure 145/65 H 146/65 H 150/67 H Pulse Oximetry 100 100 100 05/03/18 23:45 05/04/18 00:00 05/04/18 00:09 Temperature Pulse Rate 90 88 87 Respiratory Rate 14 14 14 Blood Pressure 149/67 H 149/59 H Pulse Oximetry 100 100 100 05/04/18 00:15 05/04/18 00:20 05/04/18 00:27 Temperature Pulse Rate 87 86 86 Respiratory Rate 14 14 14 Blood Pressure 147/67 H 146/65 H 145/63 H Pulse Oximetry 100 100 100 05/04/18 00:30 05/04/18 00:45 05/04/18 01:00 Temperature Pulse Rate 86 86 87 Respiratory Rate 14 14 14 Blood Pressure 145/64 H 144/67 H 146/65 H Pulse Oximetry 100 100 100 05/04/18 01:15 05/04/18 01:30 05/04/18 01:45 Temperature Pulse Rate 86 87 83 Respiratory Rate 14 14 14 Blood Pressure 142/55 H 146/67 H 141/65 H Pulse Oximetry 100 100 100 05/04/18 02:00 05/04/18 02:15 05/04/18 02:30 Temperature Pulse Rate 83 83 83 Respiratory Rate 14 14 14 Blood Pressure 139/65 137/65 138/62 Pulse Oximetry 100 100 100 05/04/18 02:45 05/04/18 03:00 05/04/18 03:01 Temperature Pulse Rate 84 81 82 Respiratory Rate 14 14 14 Blood Pressure 141/63 H 149/75 H 151/66 H Pulse Oximetry 100 95 96 05/04/18 03:08 05/04/18 03:15 05/04/18 03:30 Temperature Pulse Rate 80 80 80 Respiratory Rate 14 14 14 Blood Pressure 145/63 H 134/61 131/60 Pulse Oximetry 95 94 L 94 L 05/04/18 03:45 05/04/18 04:00 05/04/18 04:15 Temperature Pulse Rate 80 80 82 Respiratory Rate 14 14 14 Blood Pressure 128/60 131/63 146/66 H Pulse Oximetry 94 L 94 L 94 L 05/04/18 04:30 05/04/18 04:32 05/04/18 04:35 Temperature Pulse Rate 82 83 Respiratory Rate 14 14 14 Blood Pressure 148/67 H Pulse Oximetry 96 97 05/04/18 04:45 05/04/18 05:00 05/04/18 05:15 Temperature Pulse Rate 82 81 84 Respiratory Rate 14 14 14 Blood Pressure 143/67 H 136/63 136/62 Pulse Oximetry 100 100 100 05/04/18 05:32 05/04/18 05:45 05/04/18 06:00 Temperature Pulse Rate 86 85 86 Respiratory Rate 14 14 14 Blood Pressure 161/72 H 150/62 H 162/74 H Pulse Oximetry 99 99 99 05/04/18 06:15 05/04/18 06:30 05/04/18 06:45 Temperature Pulse Rate 84 84 85 Respiratory Rate 14 14 14 Blood Pressure 158/73 H 160/73 H 163/74 H Pulse Oximetry 98 99 99 05/04/18 06:55 05/04/18 07:00 05/04/18 07:15 Temperature Pulse Rate 86 85 84 Respiratory Rate 14 14 14 Blood Pressure 172/81 H 161/76 H 146/69 H Pulse Oximetry 98 99 99 05/04/18 07:30 05/04/18 07:45 05/04/18 08:00 Temperature 98.6 F Pulse Rate 83 82 82 Respiratory Rate 14 14 14 Blood Pressure 149/70 H 146/62 H 150/70 H Pulse Oximetry 99 99 100 05/04/18 08:15 05/04/18 08:30 05/04/18 08:33 Temperature Pulse Rate 81 80 80 Respiratory Rate 14 14 14 Blood Pressure 150/64 H 142/66 H Pulse Oximetry 100 100 93 L 05/04/18 08:45 05/04/18 09:00 05/04/18 09:15 Temperature Pulse Rate 80 79 78 Respiratory Rate 14 14 14 Blood Pressure 135/56 L 131/62 130/60 Pulse Oximetry 95 100 100 05/04/18 09:30 05/04/18 10:00 05/04/18 10:06 Temperature Pulse Rate 75 75 Respiratory Rate 14 14 Blood Pressure 129/62 Pulse Oximetry 100 100 Intake & Output 05/03/18 05/04/18 05/04/18 18:59 06:59 18:59 Intake Total 3292 / 3292 1824 / 1824 100 / 100 Output Total 800 / 800 1050 / 1050 Balance 2492 / 2492 774 / 774 100 / 100 Weight 69.7 kg Intake: IV 3150 / 3150 1400 / 1400 100 / 100 NS + KCl 20 mEq Inj 1,000 ML @ 1000 / 1000 100 mls/hr IV.CONT .Q10H [facility] Rx #:[id number] Diprivan 1000 mg/100 ml Inj 1, 200 / 200 300 / 300 000 mg In 100 ml @ 5 MCG/KG/MIN 1.95 mls/hr IV.CONT TITRATE PRN Rx#:[id number] 1/2 Normal Saline Inj 1,000 ML 1000 / 1000 @ 84 mls/hr IV.CONT .[id number] [facility] Rx#:[id number] Cardene Inj 25 MG In NS Inj 240 250 / 250 ML @ 5 MG/HR 50 mls/hr IV.CONT TITRATE PRN Rx#:[id number] Alburx 5% Inj 500 ML @ 250 mls/ 500 / 500 hr IV.SIG ONCE ONE Rx#:[id number] LR 1000 mL Inj 1,000 ML @ Wide 1000 / 1000 Open IV.SIG BOLUS ONE Rx#: [id number] Magnesium Sulfate Inj 2 GM In 100 / 100 NS Inj 96 ML @ 50 mls/hr IV.SIG ONCE ONE Rx#:[id number] KCl 20 mEq Premix Inj 20 meq In 100 / 100 100 ml @ 50 mls/hr IV.SIG Q2H [facility]N Rx#:[id number] Keppra 1000 mg/100 mL Premix 100 / 100 100 / 100 100 ML @ 400 mls/hr IV.SIG Q12H [facility] Rx#:[id number] Tube Feeding / 324 / 324 Tube Irrigant 120 / 120 Water Bolus Amount 100 / 100 Output: Urine 0 / 0 200 / 200 Urine Amount (Catheter) 800 / 800 850 / 850 Straight 800 / 800 850 / 850 Other: Date of Last Bowel Movement 05/02/18 05/04/18 05/04/18 <Roxanna Magana M - 05/04/18 11:07> Vital Signs 05/02/18 11:30 05/02/18 11:35 05/02/18 11:45 Temperature 97.6 F Pulse Rate 76 78 78 Respiratory Rate 26 H 27 H 21 Blood Pressure 112/56 L 112/56 L 114/57 L Pulse Oximetry 98 98 05/02/18 11:55 05/02/18 12:00 05/02/18 12:15 Temperature Pulse Rate 73 75 77 Respiratory Rate 24 23 26 H Blood Pressure 122/60 118/57 L 127/57 L Pulse Oximetry 100 100 05/02/18 12:30 05/02/18 12:45 05/02/18 13:00 Temperature Pulse Rate 78 78 79 Respiratory Rate 24 26 H 27 H Blood Pressure 125/58 L 125/64 130/60 Pulse Oximetry 100 99 98 05/02/18 14:00 05/02/18 16:00 05/02/18 16:15 Temperature 98.0 F Pulse Rate 87 86 86 Respiratory Rate 30 H 29 H Blood Pressure 137/64 135/62 Pulse Oximetry 96 97 05/02/18 16:30 05/02/18 16:45 05/02/18 17:00 Temperature Pulse Rate 85 83 83 Respiratory Rate 29 H 23 26 H Blood Pressure 136/63 128/60 131/60 Pulse Oximetry 97 97 97 05/02/18 17:15 05/02/18 17:30 05/02/18 17:45 Temperature Pulse Rate 87 89 85 Respiratory Rate 25 H 27 H 26 H Blood Pressure 131/61 126/68 126/55 L Pulse Oximetry 95 89 L 88 L 05/02/18 18:00 05/02/18 18:15 05/02/18 18:30 Temperature Pulse Rate 86 84 83 Respiratory Rate 26 H 27 H 26 H Blood Pressure 128/60 124/60 126/61 Pulse Oximetry 100 86 L 98 05/02/18 18:45 05/02/18 19:00 05/02/18 19:15 Temperature Pulse Rate 84 84 88 Respiratory Rate 24 25 H 27 H Blood Pressure 124/60 122/60 125/61 Pulse Oximetry 95 90 L 96 05/02/18 19:30 05/02/18 19:45 05/02/18 20:00 Temperature 99.5 F Pulse Rate 88 89 90 Respiratory Rate 29 H 29 H 26 H Blood Pressure 123/60 122/59 L 123/60 Pulse Oximetry 93 L 100 99 05/02/18 20:15 05/02/18 20:30 05/02/18 20:45 Temperature Pulse Rate 85 85 84 Respiratory Rate 29 H 28 H 27 H Blood Pressure 121/56 L 122/60 124/60 Pulse Oximetry 98 97 94 L 05/02/18 21:00 05/02/18 21:15 05/02/18 21:30 Temperature Pulse Rate 84 86 85 Respiratory Rate 28 H 28 H 27 H Blood Pressure 122/57 L 123/58 L 126/58 L Pulse Oximetry 97 97 97 05/02/18 21:45 05/02/18 22:00 05/02/18 22:15 Temperature Pulse Rate 86 89 86 Respiratory Rate 29 H 27 H 29 H Blood Pressure 128/59 L 131/62 123/55 L Pulse Oximetry 98 98 96 05/02/18 22:30 05/02/18 22:45 05/02/18 23:00 Temperature Pulse Rate 87 83 83 Respiratory Rate 29 H 29 H 27 H Blood Pressure 129/60 119/54 L 118/59 L Pulse Oximetry 98 96 95 05/02/18 23:15 05/02/18 23:30 05/02/18 23:45 Temperature Pulse Rate 85 92 H 89 Respiratory Rate 27 H 30 H 29 H Blood Pressure 125/61 132/57 L 122/59 L Pulse Oximetry 97 98 97 05/03/18 00:00 05/03/18 00:15 05/03/18 00:30 Temperature Pulse Rate 88 86 87 Respiratory Rate 27 H 25 H 26 H Blood Pressure 129/59 L 125/61 125/57 L Pulse Oximetry 98 97 98 05/03/18 00:45 05/03/18 01:00 05/03/18 01:15 Temperature Pulse Rate 83 83 80 Respiratory Rate 27 H 28 H 26 H Blood Pressure 120/58 L 124/59 L 120/58 L Pulse Oximetry 97 96 96 05/03/18 01:30 05/03/18 01:45 05/03/18 02:00 Temperature Pulse Rate 81 85 86 Respiratory Rate 24 26 H 26 H Blood Pressure 120/58 L 126/61 124/59 L Pulse Oximetry 95 96 95 05/03/18 02:15 05/03/18 02:30 05/03/18 02:45 Temperature Pulse Rate 89 91 H 89 Respiratory Rate 25 H 28 H 26 H Blood Pressure 126/61 125/60 124/58 L Pulse Oximetry 97 97 97 05/03/18 03:00 05/03/18 03:15 05/03/18 03:30 Temperature Pulse Rate 92 H 90 87 Respiratory Rate 28 H 25 H 26 H Blood Pressure 127/59 L 123/60 112/56 L Pulse Oximetry 96 95 96 05/03/18 03:45 05/03/18 04:00 05/03/18 04:15 Temperature Pulse Rate 87 90 86 Respiratory Rate 27 H 29 H 28 H Blood Pressure 118/53 L 125/60 121/58 L Pulse Oximetry 96 95 95 05/03/18 04:30 05/03/18 05:00 05/03/18 06:00 Temperature Pulse Rate 86 92 H 92 H Respiratory Rate 25 H 25 H 31 H Blood Pressure 127/61 Pulse Oximetry 96 97 92 L 05/03/18 06:44 05/03/18 06:46 05/03/18 06:51 Temperature Pulse Rate 109 H 93 H Respiratory Rate 16 20 16 Blood Pressure 134/65 102/55 L Pulse Oximetry 89 L 87 L 88 L 05/03/18 06:54 05/03/18 06:56 05/03/18 06:58 Temperature Pulse Rate 92 H 92 H 91 H Respiratory Rate 16 16 16 Blood Pressure 103/58 L 97/55 L 100/54 L Pulse Oximetry 89 L 89 L 90 L 05/03/18 07:00 05/03/18 07:02 05/03/18 07:42 Temperature Pulse Rate 91 H 90 Respiratory Rate 16 16 15 Blood Pressure 96/51 L 101/55 L Pulse Oximetry 87 L 90 L 100 Intake & Output 05/02/18 05/03/18 05/03/18 18:59 06:59 18:59 Intake Total 2397 / 2397 2625 / 2625 100 / 100 Output Total 1200 / 1200 600 / 600 Balance 1197 / 1197 2025 / 2025 100 / 100 Weight 65 kg Intake: IV 1850 / 1850 2350 / 2350 100 / 100 NS + KCl 20 mEq Inj 1,000 ML @ 500 / 500 1000 / 1000 100 mls/hr IV.CONT .Q10H [facility] Rx #:[id number] Diprivan 1000 mg/100 ml Inj 1, 100 / 100 000 mg In 100 ml @ 5 MCG/KG/MIN 1.95 mls/hr IV.CONT TITRATE PRN Rx#:[id number] Cardene Inj 25 MG In NS Inj 240 1250 / 1250 1250 / 1250 ML @ 5 MG/HR 50 mls/hr IV.CONT TITRATE PRN Rx#:[id number] Keppra 1000 mg/100 mL Premix 100 / 100 100 / 100 100 ML @ 400 mls/hr IV.SIG Q12H [facility] Rx#:[id number] Oral 0 / 0 Tube Feeding 447 / 447 150 / 150 Tube Irrigant 125 / 125 Water Bolus Amount 100 / 100 Output: Urine 1200 / 1200 600 / 600 Other: # Incontinent Voids 2 Date of Last Bowel Movement 05/02/18 05/02/18 # Bowel Movements 2 <Torres R3,Jordan S - 12/28/18 11:02> - Routine HEENT Exam Head: Present: normocephalic, atraumatic <Jordan Schrader 05/03/18 11:02> ENT: Present: mucous membranes moist <Jordan Schrader 05/03/18 11:02> - Routine Respiratory Exam Present: CTA bilaterally. Absent: accessory muscle use, wheezes, crackles < Jordan Schrader 05/03/18 11:02> Comments: Intubated <Jordan Schrader 05/03/18 11:02> - Routine Cardiovascular Exam Present: RRR, S1, S2. Absent: murmur <Jordan Schrader 05/03/18 11:02> - Routine Abdominal Exam Present: soft <Jordan Schrader 05/03/18 11:02> - Routine Extremities Exam Absent: cyanosis, edema <Jordan Schrader 05/03/18 11:02> Comments: s/p right above knee amputation <Jordan Schrader 05/03/18 11:02> - Routine Psychiatric Exam Present: unable to assess <Jordan Schrader 05/03/18 11:02> Assessment and Plan - Assessment (1) Acute respiratory failure Code(s): J96.00 - Acute respiratory failure, unspecified whether with hypoxia or hypercapnia Status: Acute (2) Angioedema Code(s): T78.3XXA - Angioneurotic edema, initial encounter Status: Acute (3) Catatonia associated with another mental disorder Code(s): F06.1 - Catatonic disorder due to known physiological condition Status: Acute (4) PRES (posterior reversible encephalopathy syndrome) Code(s): I67.83 - Posterior reversible encephalopathy syndrome Status: Acute (5) HTN (hypertension) Code(s): I10 - Essential (primary) hypertension Status: Acute (6) Seizures Code(s): R56.9 - Unspecified convulsions Status: Acute (7) Hyperlipidemia Code(s): E78.5 - Hyperlipidemia, unspecified Status: Chronic (8) Diabetes Code(s): E11.9 - Type 2 diabetes mellitus without complications Status: Chronic (9) Clavicle fracture Code(s): S42.009A - Fracture of unspecified part of unspecified clavicle, initial encounter for closed fracture Status: Acute (10) Nutrition, metabolism, and development symptoms Code(s): R63.8 - Other symptoms and signs concerning food and fluid intake Status: Acute <Roxanna Magana M - 05/04/18 11:07> (1) Acute respiratory failure Code(s): J96.00 - Acute respiratory failure, unspecified whether with hypoxia or hypercapnia Status: Acute (2) Angioedema Code(s): T78.3XXA - Angioneurotic edema, initial encounter Status: Acute (3) Catatonia associated with another mental disorder Code(s): F06.1 - Catatonic disorder due to known physiological condition Status: Acute (4) PRES (posterior reversible encephalopathy syndrome) Code(s): I67.83 - Posterior reversible encephalopathy syndrome Status: Acute (5) HTN (hypertension) Code(s): I10 - Essential (primary) hypertension Status: Acute (6) Seizures Code(s): R56.9 - Unspecified convulsions Status: Acute (7) Hyperlipidemia Code(s): E78.5 - Hyperlipidemia, unspecified Status: Chronic (8) Diabetes Code(s): E11.9 - Type 2 diabetes mellitus without complications Status: Chronic (9) Clavicle fracture Code(s): S42.009A - Fracture of unspecified part of unspecified clavicle, initial encounter for closed fracture Status: Acute (10) Nutrition, metabolism, and development symptoms Code(s): R63.8 - Other symptoms and signs concerning food and fluid intake Status: Acute <Jordan Schrader S - 05/03/18 10:23> - Assessment and Plan 68 yo female with dementia, HTN, DM admitted with: Catatonia Medical work-up has been negative except for PRES. Given that her altered mental status preceded her hypertension it is likely that the root cause of her altered mental state is catatonia. She does have a component of PRES by MRI but this is most likely due to hypertension caused by catatonia rather than primary hypertension leading to encephalopathy. Mental status improves with Ativan however effect only lasts for about 30 min per nursing and MD observations. No dysautonomia except for the hypertension. CBC and CK within normal limits; no signs of NMS ABG essentially normal Ammonia very slightly elevated, unlikely to be etiology of her mental status LATONYA screen positive, titer pending RF negative RPR negative ESR normal * Continue Lexapro and Seroquel * Ativan stopped due to hypotension, respiratory failure from angioedema * Discussed case with psychiatry Dr. Acosta, appreciate assistance * Only treatment likely to improve her depression/catatonia is ECT - Dr. Acosta to discuss with clinical case manager to make arrangements to transfer her to a facility that performs ECT. Primary team to assist as needed with transfer process. * Manage hypertension as noted below Acute Respiratory Failure due to angioedema Now intubated * CCM consulted, appreciate assistance * diphenhydramine 50 mg IV every 6 hours, famotidine 20 mg IV twice daily and received 1 dose of methylprednisolone succinate 140 mg x1 * Duonebs Q4H PRES MRI findings suggestive of PRES * Neurology following, appreciate assistance * Control BP as below Hypertension BP still intermittently elevated likely related to catatonia Difficulty taking PO meds due to fluctuating mental status * Due to PRES needs tighter BP control per neurology: goal SBP 110-120 * Clonidine needs to be weaned to prevent rebound hypertension: applied 0.1 mg/ d patch, leave on until it falls off, min 10 days * Continue nicardipine drip titrated to target BP < 120/90, currently held because of hypotension from angioedema * Consulted nephrology to assist with other secondary causes of HTN, though most likely etiology still catatonia Seizure Disorder Now with possible repeat seizure vs (more likely) catalepsy from catatonia EEG with nonspecific encephalopathy Keppra level was low MRI/MRA unremarkable except for PRES as noted LP performed 05/02/18 - chemistries / cultures normal so far * Consulted neurology, appreciate assistance * Continue Keppra to 1000 mg IV BID * Control BP as part of PRES management * Checking CT chest/abdomen/pelvis to evaluate for tumor / other secondary cause of PRES / hypertension * Treat catatonia as above Clavicle Fracture, right Stable, RUE neurovascularly intact * [facility] * Pain control with PO Tylenol and [place] PRN Diabetes mellitus BG at hospital goal now * Check sugar Q6H now that she is on continuous tube feedings * Holding metformin for now * Low dose SSI Hyperlipidemia * Continue home atorvastatin Fluids: IV NS + 20 mEq/L KCl at 100 CC/HR Diet: Pureed as tolerated, Ensure shakes/pudding ad aisha for caloric support * Nutritional status has been poor for last > 1 week, not eating much * Consulted automatic silk screen printer, appreciate recs * Glucerna 1.5 @ 45mL/hr DVT: Heparin BID Social: Spoke this morning to patient's daughter and gave update on care plan <Jordan Schrader S - 05/03/18 11:02> Discharge Planning: Pending improvement of respiratory status, neurologic work- up. If respiratory status improves and neurologic work-up negative, would benefit from ECT. Pending clinical course. <Jordan Schrader S - 05/03/18 11:02> - Attending Attestation The exam, history, and the medical decision-making described in the above note were completed with the assistance of the resident physician. I reviewed and agree with the findings presented. I attest that I had a [id number] encounter with the patient on the same day, and personally performed and documented my assessment and findings in the medical record. poor woman has a tongue so large it is protruding from her mouth. this angioedema was unexpected. appreciate help of Chief Of Production <Roxanna Magana - 05/04/18 11:07> <Jordan Schrader S - Last Filed: 05/03/18 10:23> (2) Angioedema Qualifiers: Encounter type: initial encounter Qualified Code(s): T78.3XXA - Angioneurotic edema, initial encounter (5) HTN (hypertension) Qualifiers: Hypertension type: other secondary hypertension Qualified Code(s): I15.8 - Other secondary hypertension (7) Hyperlipidemia Qualifiers: Hyperlipidemia type: pure hypercholesterolemia Qualified Code(s): E78.00 - Pure hypercholesterolemia, unspecified; E78.0 - Pure hypercholesterolemia (8) Diabetes Qualifiers: Diabetes mellitus type: type 2 Diabetes mellitus [employer] insulin use: unspecified [facility] insulin use status Diabetes mellitus complication status : with circulatory complication Diabetes mellitus complication detail: with peripheral angiopathy without gangrene Qualified Code(s): E11.51 - Type 2 diabetes 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 <ChinoRoxanna M - Last Filed: 05/04/18 11:07> (2) Angioedema Qualifiers: Encounter type: initial encounter Qualified Code(s): T78.3XXA - Angioneurotic edema, initial encounter (5) HTN (hypertension) Qualifiers: Hypertension type: other secondary hypertension Qualified Code(s): I15.8 - Other secondary hypertension (7) Hyperlipidemia Qualifiers: Hyperlipidemia type: pure hypercholesterolemia Qualified Code(s): E78.00 - Pure hypercholesterolemia, unspecified; E78.0 - Pure hypercholesterolemia (8) Diabetes Qualifiers: Diabetes mellitus type: type 2 Diabetes mellitus [employer] insulin use: unspecified [facility] insulin use status Diabetes mellitus complication status : with circulatory complication Diabetes mellitus complication detail: with peripheral angiopathy without gangrene Qualified Code(s): E11.51 - Type 2 diabetes 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 <Jordan Schrader S - Last Filed: 05/03/18 10:23> (2) Angioedema Qualifiers: Encounter type: initial encounter Qualified Code(s): T78.3XXA - Angioneurotic edema, initial encounter (5) HTN (hypertension) Qualifiers: Hypertension type: other secondary hypertension Qualified Code(s): I15.8 - Other secondary hypertension (7) Hyperlipidemia Qualifiers: Hyperlipidemia type: pure hypercholesterolemia Qualified Code(s): E78.00 - Pure hypercholesterolemia, unspecified; E78.0 - Pure hypercholesterolemia (8) Diabetes Qualifiers: Diabetes mellitus type: type 2 Diabetes mellitus [employer] insulin use: unspecified [employer] insulin use status Diabetes mellitus complication status : with circulatory complication Diabetes mellitus complication detail: with peripheral angiopathy without gangrene Qualified Code(s): E11.51 - Type 2 diabetes 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 <Roxanna Magana - Last Filed: 05/04/18 11:07> (2) Angioedema Qualifiers: Encounter type: initial encounter Qualified Code(s): T78.3XXA - Angioneurotic edema, initial encounter (5) HTN (hypertension) Qualifiers: Hypertension type: other secondary hypertension Qualified Code(s): I15.8 - Other secondary hypertension (7) Hyperlipidemia Qualifiers: Hyperlipidemia type: pure hypercholesterolemia Qualified Code(s): E78.00 - Pure hypercholesterolemia, unspecified; E78.0 - Pure hypercholesterolemia (8) Diabetes Qualifiers: Diabetes mellitus type: type 2 Diabetes mellitus [employer] insulin use: unspecified [place] insulin use status Diabetes mellitus complication status : with circulatory complication Diabetes mellitus complication detail: with peripheral angiopathy without gangrene Qualified Code(s): E11.51 - Type 2 diabetes 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
--- NOTE | 2018-05-03 12:22 | CT ---
EXAM DATE: 05/03/2018 12:10 PM EST AGE/SEX: 68 years / Female INDICATIONS: Metastatic disease. Evaluate for mass. CLINICAL DATA: This is the patient's initial encounter. Patient reports that signs and symptoms have been present for 2 days and indicates a pain score of Nonresponsive. MEDICAL/SURGICAL HISTORY: Hypertension. Dementia. Diabetes. Cerebrovascular attack. Non-Hodg kin lymphoma. Non-responsive. RADIATION DOSE: 21.95 CTDI (mGy) ; Patient body habitus COMPARISON: No prior exams available for comparison. TECHNIQUE: Multiple contiguous axial images were obtained through the abdomen. Images were obtained using multiple row detector helical technique. Using automated exposure control and adjustment of the mA and/or kV according to patient size, radiation dose was kept as low as reasonably achievable to o btain optimal diagnostic quality images. DICOM format image data is available electronically for rev iew and comparison. FINDINGS: Lower Lungs: Small bilateral pleural effusions with adjacent alveolar consolidations are noted. Tiny pericardial effusion is noted. Liver: The liver is enlarged and appears somewhat nodular in contour raising the possibility of cirrh osis. No focal mass is noted. There is no dilation of the biliary tree. The gallbladder wall is mildl y thickened. If there is clinical concern for acute cholecystitis, a hepatobiliary scan may be helpfu l to confirm cystic duct obstruction. Spleen: Homogeneous density without enlargement. Pancreas: There is a questionable mass within the body of the pancreas measuring 1.7 x 2.6 cm. MRI o f the abdomen with contrast may be helpful for further characterization of this questionable mass if clinically indicated. Kidneys: Normal in size and shape. No evidence of mass or hydronephrosis. Adrenal Glands: Unremarkable. Aorta: The aorta and proximal iliac vessels are grossly unremarkable without aneurysmal dilation. Bowel/Mesentery: Minimal ascites is noted within the abdomen or pelvis. The bowel loops are grossly u nremarkable. The cecum and sigmoid colon have a normal configuration. Abdominal Wall: Intact. Retroperitoneum: No evidence of adenopathy in the retrocrural, para-aortic, or deep pelvic regions. Bladder: Contours are smooth. Reproductive Organs: No abnormal masses or calcifications seen. There is an 11 mm calcified fibroid within the uterus. Inguinal: The inguinal region is unremarkable without evidence of adenopathy. Bony Structures: Degenerative changes and scoliosis of the thoracolumbar spine are noted. CONCLUSION: 1. Questionable mass within the body of the pancreas measuring 1.7 x 2.6 cm. MRI of the abdomen with contrast may be helpful for further characterization of this questionable mass if clinically indicat ed. 2. Gallbladder wall is mildly thickened. If there is clinical concern for acute cholecystitis, a hep atobiliary scan may be helpful to confirm cystic duct obstruction. 3. Liver is enlarged and appears somewhat nodular in contour raising the possibility of cirrhosis. N o focal mass is noted. 4. Small bilateral pleural effusions with adjacent alveolar consolidations are noted. 5. Tiny pericardial effusion. 6. Minimal ascites. 7. 11 mm calcified fibroid within the uterus. 8. Degenerative changes and scoliosis of the thoracolumbar spine. Electronically signed by: César Jimenez MD Board Certified Radiologist 05/03/2018 12:21 PM EST
--- NOTE | 2018-05-03 12:27 | CT ---
EXAM DATE: 05/03/2018 12:15 PM EST AGE/SEX: 68 years / Female INDICATIONS: Metastatic disease. Evaluate for mass. CLINICAL DATA: This is the patient's initial encounter. Patient reports that signs and symptoms have been present for 2 days and indicates a pain score of Nonresponsive. MEDICAL/SURGICAL HISTORY: Hypertension. Dementia. Diabetes. Cerebrovascular attack. Non-respons juan. RADIATION DOSE: 21.95 CTDI (mGy) ; Patient body habitus COMPARISON: No prior exams available for comparison. TECHNIQUE: Multiple contiguous axial images were obtained through the chest without contrast. Image s were obtained in suspended respiration using multiple row detector helical technique. Using automa marielena exposure control and adjustment of the mA and/or kV according to patient size, radiation dose was kept as low as reasonably achievable to obtain optimal diagnostic quality images. DICOM format imag e data is available electronically for review and comparison. FINDINGS: Lungs: Posterior bibasilar alveolar consolidations are noted consistent with compressive atelectasis and/or pneumonia. Clinical correlation is recommended. No pulmonary nodule or mass is noted. Mediastinum: There is good visualization of the great vessels of the middle mediastinum. No evidenc e of mediastinal or hilar adenopathy/mass. The heart is enlarged. Tiny pericardial effusion is noted. Coronary artery calcifications are noted. Pleurae: Small bilateral pleural effusions are noted. Axillae: Unremarkable. Bony Structures: Scoliosis and degenerative changes are noted involving the thoracic spine. Miscellaneous: The examination was extended to include the upper abdomen, and both adrenal glands ar e normal in size and configuration. Endotracheal tube is noted with its tip 2 cm above the tim. Na sogastric tube has its tip in the stomach. CONCLUSION: 1. Small bilateral pleural effusions. 2. Posterior bibasilar alveolar consolidations consistent with compressive atelectasis and/or pneumo ryan. Clinical correlation is recommended. 3. Tiny pericardial effusion. 4. Cardiomegaly and coronary artery calcifications. 5. No pulmonary nodule, mass or lymphadenopathy. 6. Scoliosis and degenerative changes involving the thoracic spine. Electronically signed by: César Jimenez MD Board Certified Radiologist 05/03/2018 12:26 PM EST
[2018-05-03] MEDS: Oral Hygiene Kit OROPHARYNG SCH ×2 (13:09→16:08)
--- NOTE | 2018-05-03 13:27 | P.PNPSY ---
Subjective Remarks: 05/03/2018 Patient intubated and unable to speak. She is however responding to my voice with her eyes open. discussed with the nurse in charge of the patient's care. Process for gaining court order for ECT is in the process however the patient is too unstable at present for transport to a facility that is capable of the ECT. Mental Status Examination Consciousness: Alert Motor Activity: Other (Patient is bedridden and currently intubated) Speech: Other (Intubated) Mood: Sad (Catatonic), Anxious Affect: Sad, Flat, Anxious Thought Process & Associations: Other (Patient intubated) Assessment and Plan - Plan Plan: May 02, 2018 Patient will continue medical floor until stable. A hearing next for ordering of ECT. Patient presents to unstable for transport. Will await improvement in patient's medical conditions. Justification for Continued Inpatient Stay: Patient currently in ICU and is intubated.
[2018-05-03] MEDS ORDERED: Magnesium Sulfate Inj 2 GM in Sodium Chlor 0.9% Inj 96 ML IV.SIG ONE (15:00)
--- NOTE | 2018-05-03 15:27 | P.DIET ---
Nutritional Evaluation Type of nutrition evaluation: initial Nutrition consult regarding: Tube Feeding Nutrition screening: [facility] (TF'ing) Screening comments: 05/01 [facility] for TF'ing 05/03 [facility] for TF'ing 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%) % IBW: 113 (IBW = 106lb (-12%)) Body Weight Used for Calculations: Actual (61.6kg) Energy Needs - Lower Range (kCal/kg): 25 Energy Needs - Upper Range (kCal/kg): 30 Lower Limit kCal/kg (kCals): 1,540 Upper Limit kCal/kg (kCals): 1,848 Lower Limit Protein Factor (Grams per Kg): 1.2 Upper Limit Protein Factor (Grams per Kg): 1.4 Lower Protein Needs (Protein): 74 Upper Protein Needs (Protein): 86 Dietitian Reviewed in Medical Record: Curent medications, Intake & Output, Labs , Medical history, Tube feeding Diet Order: NPO Objective Comments: PMH: dementia, DM, high cholesterol, hx of stroke, HTN, non-hodgkin lymphoma, AKA R lower extremity Meds: novolog insulin sliding scale, thiamine Labs: POC glucose 152 207 147 LBM 05/02 Assessment Assessment: Pt remains currently at nutritional risk r/t AMS and need for TF'ing. Pt was intubated today 04/23, sedated w/ propofol and on mech vent. Pt intubated d/t swollen tongue and increased oxygen requirements. Spoke w/ RN about pts TF status, RN stated that he will initiate TF at 20mL/hr for pt. RD continue to recommend Glucerna 1.5 @ 45mL/hr to provide 1620kcal, 89g of protein, and 820mL of free water to best meet pts assessed needs. Will continue to monitor TF tolerance, glucose labs. Labs reviewed, dietitian following. Recommendations: 1. RD to recommend decreasing TF to Glucerna 1.5 @ 45mL/hr to best meet pts assessed needs 2. Will continue to monitor TF tolerance, glucose labs 3. Dietitian following Dietitian to Monitor: Lab values, Glucose level, Intake & Output, Tube feeding tolerance, Weight change, PO Intake, Medical course
[2018-05-03 17:58] LABS: Cancer Antigen 125 25.3 U/mL (0.0-30.2); Cancer Antigen 19-9 26.2 U/mL (0.0-35.0)
[2018-05-03] MEDS ORDERED: Albumin Human 5% Inj 500 ML IV.SIG ONE (18:00)
[2018-05-03] MEDS: Sodium Chloride 0.45 % Inj 1,000 ML IV.CONT SCH (18:14)
[2018-05-03 20:08] LABS: Creatinine,Urine Random 43 mg/dL (27-300); Sodium,Urine Random 107 meq/L
[2018-05-03] MEDS: hydrALAZINE 10 MG Tablet NG/OG PRN (20:40)
[2018-05-03] MEDS: Heparin - SQ 10,000 UNITS/ML Vial SQ SCH (20:42)
--- NOTE | 2018-05-03 21:14 | P.PNNP ---
Subjective Interval history: Patient seen in AM,was intubated due to worsening breathing and swelling of tongue and throat. Physical Exam Vital signs: Vital Signs 05/02/18 21:15 05/02/18 21:30 05/02/18 21:45 Temperature Pulse Rate 86 85 86 Respiratory Rate 28 H 27 H 29 H Blood Pressure 123/58 L 126/58 L 128/59 L Pulse Oximetry 97 97 98 05/02/18 22:00 05/02/18 22:15 05/02/18 22:30 Temperature Pulse Rate 89 86 87 Respiratory Rate 27 H 29 H 29 H Blood Pressure 131/62 123/55 L 129/60 Pulse Oximetry 98 96 98 05/02/18 22:45 05/02/18 23:00 05/02/18 23:15 Temperature Pulse Rate 83 83 85 Respiratory Rate 29 H 27 H 27 H Blood Pressure 119/54 L 118/59 L 125/61 Pulse Oximetry 96 95 97 05/02/18 23:30 05/02/18 23:45 05/03/18 00:00 Temperature Pulse Rate 92 H 89 88 Respiratory Rate 30 H 29 H 27 H Blood Pressure 132/57 L 122/59 L 129/59 L Pulse Oximetry 98 97 98 05/03/18 00:15 05/03/18 00:30 05/03/18 00:45 Temperature Pulse Rate 86 87 83 Respiratory Rate 25 H 26 H 27 H Blood Pressure 125/61 125/57 L 120/58 L Pulse Oximetry 97 98 97 05/03/18 01:00 05/03/18 01:15 05/03/18 01:30 Temperature Pulse Rate 83 80 81 Respiratory Rate 28 H 26 H 24 Blood Pressure 124/59 L 120/58 L 120/58 L Pulse Oximetry 96 96 95 05/03/18 01:45 05/03/18 02:00 05/03/18 02:15 Temperature Pulse Rate 85 86 89 Respiratory Rate 26 H 26 H 25 H Blood Pressure 126/61 124/59 L 126/61 Pulse Oximetry 96 95 97 05/03/18 02:30 05/03/18 02:45 05/03/18 03:00 Temperature Pulse Rate 91 H 89 92 H Respiratory Rate 28 H 26 H 28 H Blood Pressure 125/60 124/58 L 127/59 L Pulse Oximetry 97 97 96 05/03/18 03:15 05/03/18 03:30 05/03/18 03:45 Temperature Pulse Rate 90 87 87 Respiratory Rate 25 H 26 H 27 H Blood Pressure 123/60 112/56 L 118/53 L Pulse Oximetry 95 96 96 05/03/18 04:00 05/03/18 04:15 05/03/18 04:30 Temperature Pulse Rate 90 86 86 Respiratory Rate 29 H 28 H 25 H Blood Pressure 125/60 121/58 L 127/61 Pulse Oximetry 95 95 96 05/03/18 05:00 05/03/18 06:00 05/03/18 06:44 Temperature Pulse Rate 92 H 92 H Respiratory Rate 25 H 31 H 16 Blood Pressure Pulse Oximetry 97 92 L 89 L 05/03/18 06:46 05/03/18 06:51 05/03/18 06:54 Temperature Pulse Rate 109 H 93 H 92 H Respiratory Rate 20 16 16 Blood Pressure 134/65 102/55 L 103/58 L Pulse Oximetry 87 L 88 L 89 L 05/03/18 06:56 05/03/18 06:58 05/03/18 07:00 Temperature Pulse Rate 92 H 91 H 91 H Respiratory Rate 16 16 16 Blood Pressure 97/55 L 100/54 L 96/51 L Pulse Oximetry 89 L 90 L 87 L 05/03/18 07:02 05/03/18 07:42 05/03/18 08:00 Temperature Pulse Rate 90 86 Respiratory Rate 16 15 Blood Pressure 101/55 L Pulse Oximetry 90 L 100 05/03/18 08:02 05/03/18 10:00 05/03/18 12:00 Temperature 98.5 F Pulse Rate 86 80 81 Respiratory Rate 14 Blood Pressure 125/60 Pulse Oximetry 93 L 05/03/18 14:00 05/03/18 15:26 05/03/18 16:00 Temperature 98.7 F Pulse Rate 72 71 Respiratory Rate 14 14 Blood Pressure 112/59 L Pulse Oximetry 96 96 05/03/18 16:35 05/03/18 18:00 05/03/18 20:13 Temperature Pulse Rate 71 75 81 Respiratory Rate 15 14 Blood Pressure Pulse Oximetry 100 Intake & Output 05/03/18 05/03/18 05/04/18 06:59 18:59 06:59 Intake Total 2625 / 2625 3292 / 3292 100 / 100 Output Total 600 / 600 800 / 800 Balance 2024 / 2024 2492 / 2492 100 / 100 Weight 65 kg Intake: IV 2350 / 2350 3150 / 3150 100 / 100 NS + KCl 20 mEq Inj 1,000 ML @ 1000 / 1000 1000 / 1000 100 mls/hr IV.CONT .Q10H YUKO Rx #:[id number] Diprivan 1000 mg/100 ml Inj 1, 200 / 200 100 / 100 000 mg In 100 ml @ 5 MCG/KG/MIN 1.95 mls/hr IV.CONT TITRATE PRN Rx#:[id number] Cardene Inj 25 MG In NS Inj 240 1250 / 1250 250 / 250 ML @ 5 MG/HR 50 mls/hr IV.CONT TITRATE PRN Rx#:[id number] Alburx 5% Inj 500 ML @ 250 mls/ 500 / 500 hr IV.SIG ONCE ONE Rx#:[id number] LR 1000 mL Inj 1,000 ML @ Wide 1000 / 1000 Open IV.SIG BOLUS ONE Rx#: [id number] Magnesium Sulfate Inj 2 GM In 100 / 100 NS Inj 96 ML @ 50 mls/hr IV.SIG ONCE ONE Rx#:[id number] Keppra 1000 mg/100 mL Premix 100 / 100 100 / 100 100 ML @ 400 mls/hr IV.SIG Q12H YUKO Rx#:[id number] Tube Feeding 150 / 150 22 / 22 Tube Irrigant 125 / 125 120 / 120 Output: Urine 600 / 600 0 / 0 Urine Amount (Catheter) 800 / 800 Straight 800 / 800 Other: # Incontinent Voids 2 Date of Last Bowel Movement 05/02/18 05/02/18 Narrative: Patient is intubated and sedated. HEENT: REGIS, Has swelling of tongue and lips. Neck: Supple , JVD not elevated. Lungs: Bilateral basal rales and rhonchi. ABd. Soft, distended. Ext: Mild leg edema. - Urinary Catheter Management Straight Cath placed during this visit: no Assessment and Plan - Assessment (1) Acute respiratory failure Code(s): J96.00 - Acute respiratory failure, unspecified whether with hypoxia or hypercapnia Status: Acute (2) Angioedema Code(s): T78.3XXA - Angioneurotic edema, initial encounter Status: Acute Qualifiers: Encounter type: initial encounter Qualified Code(s): T78.3XXA - Angioneurotic edema, initial encounter (3) PRES (posterior reversible encephalopathy syndrome) Code(s): I67.83 - Posterior reversible encephalopathy syndrome Status: Acute (4) Anxiety Code(s): F41.9 - Anxiety disorder, unspecified Status: Acute (5) Dementia Code(s): F03.90 - Unspecified dementia without behavioral disturbance Status: Acute (6) HTN (hypertension) Code(s): I10 - Essential (primary) hypertension Status: Acute Qualifiers: Hypertension type: other secondary hypertension Qualified Code(s): I15.8 - Other secondary hypertension - Plan Patient is intubated with swelling of tongue and lips. BP is better now and to keep SBP close to 120. Creatinine has been normal. Neurology following. Weaning as per CCM.
[2018-05-03] MEDS ORDERED: *Labetalol HCl Inj 100 MG/20 ML Vial PERIprocedural Use ONLY IV.PUSH PRN (23:42)
[2018-05-03] MEDS ORDERED: hydrALAZINE HCl Inj 20 MG/ML Vial IV.PUSH PRN (23:42)
[2018-05-04] MEDS: Insulin NovoLOG Aspart Correctional Sugar Inj SQ SCH ×4 (00:04→18:12)
[2018-05-04 00:06] LABS: Enterovirus (PCR)Source CSF; Enterovirus RNA Qual (PCR) Negative (Negative)
[2018-05-04] MEDS: Oral Hygiene Kit OROPHARYNG SCH ×4 (00:22→16:22)
[2018-05-04] MEDS: levETIRAcetam 1000mg/100mL Inj 100 ML IV.SIG SCH ×2 (00:22→12:43)
[2018-05-04] MEDS: Labetalol HCl Inj 100 MG/20 ML Vial IV.PUSH PRN ×3 (01:36→05:56)
[2018-05-04] MEDS: Propofol 1000 mg/100 ml Inj 1,000 MG/100 ML BOTTLE IV.CONT PRN ×5 (01:45→22:36)
[2018-05-04] MEDS: Sodium Chloride 0.45 % Inj 1,000 ML IV.CONT SCH (05:56)
[2018-05-04] MEDS: Chlorhexidine Gluconate 2% 1 Pack (2 Cloths) TOPICAL SCH (05:57)
[2018-05-04 06:12] LABS: Baso % (Auto) 0.3 % (0.0-2.0); Hemoglobin 11.7 gm/dL (11.6-15.3); Lymph # (Auto) 1.5 th/mm3 (1.0-4.8); Lymph % (Auto) 15.1 % (9.0-44.0); Mean Corpuscular HGB Conc 34.5 % (32.0-36.0); Mean Corpuscular Hemoglobin 31.7 pg (27.0-34.0); Mean Corpuscular Volume 91.8 fL (80.0-100.0); Mean Platelet Volume 9.6 fL (7.0-11.0); Mono # (Auto) 0.4 th/mm3 (0.0-0.9); Mono % (Auto) 4.2 % (0.0-8.0); Neut # (Auto) 8.3 th/mm3 (1.8-7.7); Neut % (Auto) 80.4 % (16.0-70.0); Platelet Count 279 th/mm3 (150-450); Red Blood Count 3.71 mil/mm3 (4.00-5.30); Red Cell Distribution Width 14.3 % (11.6-17.2); White Blood Count 10.3 th/mm3 (4.0-11.0)
[2018-05-04 06:20] LABS: Activated Partial Thrombo Time 27.1 sec (23.4-31.7); INR 1.2 Ratio; Prothrombin Time 12.3 sec (9.8-11.6)
[2018-05-04 06:33] LABS: Alanine Aminotransferase 11 U/L (10-53); Albumin 2.5 g/dL (3.4-5.0); Anion Gap 10 meq/L (5-15); Aspartate Aminotransferase 13 U/L (15-37); Blood Urea Nitrogen 19 mg/dL (7-18); Calcium 7.8 mg/dL (8.5-10.1); Chloride 111 meq/L (98-107); Glomerular Filtration Rate 71 mL/min (>89); Glucose,Random 246 mg/dL (74-106); Magnesium 2.3 mg/dL (1.5-2.5); Phosphorus 2.8 mg/dL (2.5-4.9); Potassium 3.4 meq/L (3.5-5.1); Sodium 142 meq/L (136-145)
[2018-05-04 06:50] LABS: Alkaline Phosphatase 67 U/L (45-117); Thyroid Stimulating Hormone 0.524 uIU/mL (0.358-3.740); Total Protein 5.4 g/dL (6.4-8.2)
[2018-05-04 06:53] LABS: Creatine Kinase 86 U/L (26-192)
[2018-05-04] MEDS: niCARdipine Inj 25 MG in Sodium Chlor 0.9% Inj 240 ML IV.CONT PRN ×4 (06:59→22:30)
--- NOTE | 2018-05-04 07:48 | P.PNCC ---
Subjective Subjective Remarks/Hospital Course: This is a 68-year-old female. Admission 04/30/2018. Date of consultation 05/03/2018. Past medical history includes non-Hodgkin's lymphoma in remission since 2008, history of CVA, underlying dementia disorder NOS, hypertension, hyperlipidemia, peripheral vascular disease with known right carotid stenosis, diabetes mellitus, gout, and a known right clavicle fracture. She has a right [id number] amputation from peripheral vascular disease. Patient presents to [facility] 04/30 with recent admissions for catatonia state. Patient was treated under psychiatry to be medically cleared by family medicine practice with little improvement in her symptomatology. She presented here with elevated blood pressure and altered mental status. She received clonidine and hydralazine the results and was started on nicardipine drip and transferred to the intensive care unit. She is also on lisinopril which was discontinued recently. Her nicardipine drip is currently off. This morning, was notified by the RN patient had a swollen tongue and has had increasing oxygen requirements. Patient required emergent intubation with glide scope without complication. Most likely is introduced secondary to JACE inhibitor. Patient is currently on famotidine, diphenhydramine and received 1 dose of steroids. Subjective 05/04: Currently resting in bed in no acute distress. Tongue remains swollen. Replace potassium. Restarted on nicardipine drip overnight due to hypertension. Objective Vital Signs / I&O: Vital Signs 05/03/18 08:00 05/03/18 08:02 05/03/18 10:00 Temperature 98.5 F Pulse Rate 86 86 80 Respiratory Rate 14 Blood Pressure 125/60 Pulse Oximetry 93 L 05/03/18 12:00 05/03/18 14:00 05/03/18 15:26 Temperature Pulse Rate 81 72 Respiratory Rate 14 Blood Pressure Pulse Oximetry 96 05/03/18 16:00 05/03/18 16:15 05/03/18 16:30 Temperature 98.7 F Pulse Rate 71 72 71 Respiratory Rate 14 14 14 Blood Pressure 112/59 L 113/64 118/67 Pulse Oximetry 96 96 99 05/03/18 16:35 05/03/18 16:45 05/03/18 17:00 Temperature Pulse Rate 71 73 74 Respiratory Rate 15 14 14 Blood Pressure 119/66 116/57 L Pulse Oximetry 100 98 05/03/18 17:15 05/03/18 17:30 05/03/18 17:45 Temperature Pulse Rate 74 74 72 Respiratory Rate 14 14 14 Blood Pressure 115/59 L 109/58 L 111/57 L Pulse Oximetry 96 96 96 05/03/18 18:00 05/03/18 18:15 05/03/18 18:30 Temperature Pulse Rate 75 74 74 Respiratory Rate 16 14 14 Blood Pressure 119/62 136/67 139/64 Pulse Oximetry 100 100 100 05/03/18 18:45 05/03/18 19:00 05/03/18 19:15 Temperature Pulse Rate 78 78 79 Respiratory Rate 14 14 14 Blood Pressure 145/68 H 140/67 140/68 Pulse Oximetry 94 L 100 100 05/03/18 19:30 05/03/18 19:45 05/03/18 20:00 Temperature 96.7 F L Pulse Rate 79 79 81 Respiratory Rate 14 14 14 Blood Pressure 142/69 H 144/70 H 149/72 H Pulse Oximetry 100 100 100 05/03/18 20:13 05/03/18 20:15 05/03/18 20:30 Temperature Pulse Rate 81 81 86 Respiratory Rate 14 14 14 Blood Pressure 149/70 H 152/72 H Pulse Oximetry 100 100 100 05/03/18 20:45 05/03/18 21:00 05/03/18 21:15 Temperature Pulse Rate 93 H 97 H 96 H Respiratory Rate 14 14 14 Blood Pressure 157/76 H 163/75 H 155/64 H Pulse Oximetry 100 100 100 05/03/18 21:30 05/03/18 21:45 05/03/18 22:00 Temperature Pulse Rate 93 H 92 H 92 H Respiratory Rate 14 14 14 Blood Pressure 152/70 H 152/70 H 153/69 H Pulse Oximetry 100 100 100 05/03/18 22:15 05/03/18 22:30 05/03/18 22:45 Temperature Pulse Rate 92 H 93 H 92 H Respiratory Rate 14 14 14 Blood Pressure 150/67 H 150/68 H 148/66 H Pulse Oximetry 100 100 100 05/03/18 23:00 05/03/18 23:15 05/03/18 23:30 Temperature Pulse Rate 91 H 91 H 91 H Respiratory Rate 14 14 14 Blood Pressure 145/65 H 146/65 H 150/67 H Pulse Oximetry 100 100 100 05/03/18 23:45 05/04/18 00:00 05/04/18 00:09 Temperature Pulse Rate 90 88 87 Respiratory Rate 14 14 14 Blood Pressure 149/67 H 149/59 H Pulse Oximetry 100 100 100 05/04/18 00:15 05/04/18 00:20 05/04/18 00:27 Temperature Pulse Rate 87 86 86 Respiratory Rate 14 14 14 Blood Pressure 147/67 H 146/65 H 145/63 H Pulse Oximetry 100 100 100 05/04/18 00:30 05/04/18 00:45 05/04/18 01:00 Temperature Pulse Rate 86 86 87 Respiratory Rate 14 14 14 Blood Pressure 145/64 H 144/67 H 146/65 H Pulse Oximetry 100 100 100 05/04/18 01:15 05/04/18 01:30 05/04/18 01:45 Temperature Pulse Rate 86 87 83 Respiratory Rate 14 14 14 Blood Pressure 142/55 H 146/67 H 141/65 H Pulse Oximetry 100 100 100 05/04/18 02:00 05/04/18 02:15 05/04/18 02:30 Temperature Pulse Rate 83 83 83 Respiratory Rate 14 14 14 Blood Pressure 139/65 137/65 138/62 Pulse Oximetry 100 100 100 05/04/18 02:45 05/04/18 03:00 05/04/18 03:01 Temperature Pulse Rate 84 81 82 Respiratory Rate 14 14 14 Blood Pressure 141/63 H 149/75 H 151/66 H Pulse Oximetry 100 95 96 05/04/18 03:08 05/04/18 03:15 05/04/18 03:30 Temperature Pulse Rate 80 80 80 Respiratory Rate 14 14 14 Blood Pressure 145/63 H 134/61 131/60 Pulse Oximetry 95 94 L 94 L 05/04/18 03:45 05/04/18 04:00 05/04/18 04:15 Temperature Pulse Rate 80 80 82 Respiratory Rate 14 14 14 Blood Pressure 128/60 131/63 146/66 H Pulse Oximetry 94 L 94 L 94 L 05/04/18 04:30 05/04/18 04:32 05/04/18 04:35 Temperature Pulse Rate 82 83 Respiratory Rate 14 14 14 Blood Pressure 148/67 H Pulse Oximetry 96 97 05/04/18 04:45 05/04/18 05:00 05/04/18 05:15 Temperature Pulse Rate 82 81 84 Respiratory Rate 14 14 14 Blood Pressure 143/67 H 136/63 136/62 Pulse Oximetry 100 100 100 05/04/18 05:32 05/04/18 05:45 05/04/18 06:00 Temperature Pulse Rate 86 85 86 Respiratory Rate 14 14 14 Blood Pressure 161/72 H 150/62 H 162/74 H Pulse Oximetry 99 99 99 05/04/18 06:15 05/04/18 06:30 05/04/18 06:45 Temperature Pulse Rate 84 84 85 Respiratory Rate 14 14 14 Blood Pressure 158/73 H 160/73 H 163/74 H Pulse Oximetry 98 99 99 05/04/18 06:55 05/04/18 07:00 05/04/18 07:15 Temperature Pulse Rate 86 85 84 Respiratory Rate 14 14 14 Blood Pressure 172/81 H 161/76 H 146/69 H Pulse Oximetry 98 99 99 05/04/18 07:30 Temperature Pulse Rate 83 Respiratory Rate 14 Blood Pressure 149/70 H Pulse Oximetry 99 Intake & Output 05/03/18 05/04/18 05/04/18 18:59 06:59 18:59 Intake Total 3292 / 3292 1824 / 1824 Output Total 800 / 800 1050 / 1050 Balance 2492 / 2492 774 / 774 Weight 69.7 kg Intake: IV 3150 / 3150 1400 / 1400 NS + KCl 20 mEq Inj 1,000 ML @ 1000 / 1000 100 mls/hr IV.CONT .Q10H [facility] Rx #:[id number] Diprivan 1000 mg/100 ml Inj 1, 200 / 200 300 / 300 000 mg In 100 ml @ 5 MCG/KG/MIN 1.95 mls/hr IV.CONT TITRATE PRN Rx#:[id number] 1/2 Normal Saline Inj 1,000 ML 1000 / 1000 @ 84 mls/hr IV.CONT .[id number] [facility] Rx#:[id number] Cardene Inj 25 MG In NS Inj 240 250 / 250 ML @ 5 MG/HR 50 mls/hr IV.CONT TITRATE PRN Rx#:[id number] Alburx 5% Inj 500 ML @ 250 mls/ 500 / 500 hr IV.SIG ONCE ONE Rx#:[id number] LR 1000 mL Inj 1,000 ML @ Wide 1000 / 1000 Open IV.SIG BOLUS ONE Rx#: [id number] Magnesium Sulfate Inj 2 GM In 100 / 100 NS Inj 96 ML @ 50 mls/hr IV.SIG ONCE ONE Rx#:[id number] Keppra 1000 mg/100 mL Premix 100 / 100 100 / 100 100 ML @ 400 mls/hr IV.SIG Q12H [facility] Rx#:[id number] Tube Feeding 324 / 324 Tube Irrigant 120 / 120 Water Bolus Amount 100 / 100 Output: Urine 0 / 0 200 / 200 Urine Amount (Catheter) 800 / 800 850 / 850 Straight 800 / 800 850 / 850 Other: Date of Last Bowel Movement 05/02/18 05/04/18 Result Diagrams: 05/04/18 05:40 05/04/18 05:40 Other Results: Microbiology 05/02/18 11:30 Lumbar Puncture Gram Stain - Final 05/02/18 11:30 Lumbar Puncture CSF Culture - Preliminary No growth in 48 hours 05/03/18 08:00 Sputum - Endotracheal Gram Stain - Final 05/02/18 11:30 Cerebral Spinal Fluid - Lumbar Puncture Acid Fast Bacilli Smear - Final No acid fast bacilli seen 05/02/18 11:30 Cerebral Spinal Fluid - Lumbar Puncture Fungal Smear - Final No fungal elements seen Imaging: ITS Impressions Carotid Doppler Study 05/01/18 00:00 CONCLUSION: 1. Elevation of the peak systolic velocity of the left internal carotid artery suggesting 50-69% stenosis although the ICA/CCA ratio on the left suggests less than 50% stenosis. CTA of the carotids would be helpful to resolve these discordant findings. There is also elevation of the peak systolic velocity of the left external carotid artery in the 50-69% stenosis range. 2. Less than 50% stenosis involving the right internal carotid artery. 3. Moderate atherosclerotic plaque formation within the carotid bulbs and proximal internal carotid arteries. Head MRI 05/01/18 19:26 There is vasogenic edema seen involving the posterior aspects of the parietal lobes as well as the occipital lobes bilaterally. This is similar to the prior examination. Periventricular high FLAIR signal abnormality also noted involving both cerebral hemispheres but most pronounced within the parietal lobes. This is unchanged. A small lacunar infarction involving the left abraham radiata. No hemorrhage. No acute infarction. Normal flow voids within the major intracranial vessels. Ventricles are normal in size. Orbital structures are normal. No abnormal enhancement following gadolinium. Mucosal thickening without air-fluid levels involving anterior ethmoid air cells on the right. Remaining paranasal sinuses are clear. Fluid signal seen within the mastoid air cells bilaterally but more pronounced on the left. CONCLUSION: 1. Study degraded by motion artifact. 2. Vasogenic edema involving the parietal and occipital lobes bilaterally is stable. Although not specific for this could relate to posterior reversible encephalopathy syndrome (PRES). 3. Atrophy. 4. Chronic small vessel ischemic change. Lumbar Puncture Fluoroscopy 05/02/18 00:00 CONCLUSION: 1. Uncomplicated fluoroscopically guided lumbar puncture. Abdomen/Pelvis CT 05/03/18 00:00 CONCLUSION: 1. Questionable mass within the body of the pancreas measuring 1.7 x 2.6 cm. MRI of the abdomen with contrast may be helpful for further characterization of this questionable mass if clinically indicated. 2. Gallbladder wall is mildly thickened. If there is clinical concern for acute cholecystitis, a hepatobiliary scan may be helpful to confirm cystic duct obstruction. 3. Liver is enlarged and appears somewhat nodular in contour raising the possibility of cirrhosis. No focal mass is noted. 4. Small bilateral pleural effusions with adjacent alveolar consolidations are noted. 5. Tiny pericardial effusion. 6. Minimal ascites. 7. 11 mm calcified fibroid within the uterus. 8. Degenerative changes and scoliosis of the thoracolumbar spine. Chest CT 05/03/18 00:00 CONCLUSION: 1. Small bilateral pleural effusions. 2. Posterior bibasilar alveolar consolidations consistent with compressive atelectasis and/or pneumonia. Clinical correlation is recommended. 3. Tiny pericardial effusion. 4. Cardiomegaly and coronary artery calcifications. 5. No pulmonary nodule, mass or lymphadenopathy. 6. Scoliosis and degenerative changes involving the thoracic spine. Chest X-Ray 05/03/18 07:09 CONCLUSION: 1. Endotracheal tube is low in position at the level of the tim and directed towards the right mainstem bronchus. This should be pulled back 3 cm for more optimal positioning. 2. Scattered atelectatic changes bilaterally. 3. Degenerative changes and scoliosis of the thoracic spine. Objective Remarks: GENERAL: This is a 68-year-old female currently orotracheally intubated SKIN: Warm and dry. HEAD: Atraumatic. Normocephalic. EYES: Pupils equal and round around 3 mm bilaterally and reactive. No scleral icterus. No injection or drainage. ENT: No nasal bleeding or discharge. Mucous membranes pink and moist. Tongue remains edematous and swollen NECK: Trachea midline. No JVD. CARDIOVASCULAR: Regular rate and rhythm. S1, S2. No S4. RESPIRATORY: No accessory muscle use. Clear to auscultation. Breath sounds equal bilaterally. GASTROINTESTINAL: Abdomen soft, non-tender, obese. Hepatic and splenic margins not palpable. MUSCULOSKELETAL: Extremities trace bilateral lower extremity edema. No obvious deformities. NEUROLOGICAL: Sedated on propofol and fentanyl drips. Positive cough and gag. Positive corneal reflex. Withdraws to pain. Assessment and Plan - Assessment and Plan Plan: Neuro/Psych: Acute encephalopathy Possible PRES History of CVA Seizure disorder NOS [place] MRI brain revealed vasogenic edema in the bilateral posterior occipital lobes. Possible differential includes PRES Evaluate Dr. Mehta/neurology. Continue aspirin 81 mg daily. Goal blood pressure between 110 120 systolic. Lumbar puncture 05/02 unremarkable Remains on levetiracetam 1000 mg twice daily for seizures On is escitalopram 20 mg daily Continue gabapentin 60o mg twice daily Holding benzodiazepines CV: Hypertensive emergency Hyper lipedema Peripheral vascular disease Noted 2D echocardiogram 05/01 revealed EF around 55-60 history no regional response. Small pericardial effusion. Goal keep systolic blood pressure around 110-120 per neurology's recommendations Previously on hydralazine, clonidine scheduled. As needed hydralazine, Nitropaste and labetalol Start amlodipine 5 mg daily Nicardipine drip currently resume. Continue atorvastatin 20 mg daily Carotid Dopplers revealed left stenosis 50-69%. Right less than 50%. Resp: Acute respiratory failure secondary angioedema [facility] 14/500/1.05/14/39 Ventilator bundle Albuterol/ipratropium aerosols every 4 hours with albuterol every 2 as needed dyspnea No spontaneous breathing trials until angioedema resolving Follow-up on post intubation chest x-ray and ABG Currently on scheduled diphenhydramine 50 mg IV every 6 hours, famotidine 20 mg IV twice daily and received 1 dose of methylprednisolone succinate 125 mg x1 GI: Start tube feeding today after MRI abdomen. Glucerna 1.5 goal 60 cc an hour. Noted CT abdomen/pelvis revealed pancreatic mass. Will check MRI per the recommendations. Noted normal CA 19/9, CEA and CA 125 NG tube to low intermittent wall suction currently Famotidine for GI prophylaxis Docusate serum/senna 1 tablet twice daily for bowel regimen : Currently withPeriwick catheter. Endo: Diabetes mellitus type 2 Gout Sliding scale insulin with aspart insulin every 6 hours low regimen Accu-Cheks to maintain euglycemia Check TSH Holding metformin and glimepiride. Renal: Creatinine currently within normal limits Monitor urine output Acute I's and O's Heme: Monitor CBC daily. Follow trends. No indication for transfusion of blood products at this time ID: Check sputum Monitor for signs of hematology infection FEN: Acute hypokalemia Replace electrolytes as clinically indicated per ICU electrolyte protocol Currently on normal saline with 20 mEq of potassium chloride 100 cc an hour MSK: Right [id number] amputation PT/OT evaluate and treat Access -Utilize peripheral IV. Central line if indicated Prophylaxis -GI -famotidine -DVT -SCD/heparin subcu Level 3 consult Code Status: Full code
[2018-05-04] MEDS: Artificial Tears Opth Drops 15 ML Bottle EACH EYE SCH ×3 (08:00→22:34)
[2018-05-04] MEDS: Potassium Chlor 20 mEq Premix 20 MEQ/100 ML PIGGYBACK IV.SIG PRN ×2 (08:17→10:23)
[2018-05-04] MEDS: Famotidine PF Inj 20 MG/2 ML Vial IV.PUSH SCH ×2 (08:23→21:27)
[2018-05-04] MEDS: Heparin - SQ 10,000 UNITS/ML Vial SQ SCH ×2 (08:26→21:26)
[2018-05-04] MEDS: Chlorhexidine 0.12% Oral Kit 15 ML UDC OROPHARYNG SCH ×2 (08:28→21:26)
[2018-05-04] MEDS: amLODIPine 5 MG Tablet PO SCH (08:28)
[2018-05-04] MEDS: Senna/Docusate Sodium 8.6/50 MG Tablet PO SCH ×2 (08:29→21:27)
--- NOTE | 2018-05-04 09:15 | P.PNFP ---
Subjective Interval history: 68 yo female with dementia, DM, HTN admitted for hypertension related to catatonia (due likely to depression). Yesterday morning she had respiratory distress and severe tongue swelling. Critical care was consulted and intubated her for likely angioedema. This morning she is intubated and unable to provide history. RN at bedside reports no events/concerns besides the angioedema leading to intubation. Tongue remains swollen. She is sedated with Propofol and restarted on Nicardipine drip to maintain her systolic BP around 110-120 per neurology recommendations. <Eko Janel Tyson U - 05/04/18 09:21> Results - Labs Result diagrams: 05/04/18 05:40 05/04/18 05:40 <Roxanna Magana - 05/04/18 11:23> Abnormal lab results 05/03/18 05/03/18 05/03/18 Range/Units 11:37 18:13 18:45 RBC (4.00-5.30) mil/mm3 Hct (35.0-46.0) % Neut % (Auto) (16.0-70.0) % Neut # (Auto) (1.8-7.7) th/mm3 PT (9.8-11.6) sec Potassium (3.5-5.1) meq/L Chloride (98-107) meq/L BUN (7-18) mg/dL Estimated GFR (>89) mL/min POC Glucose 220 H 169 H (68-110) mg/dl Random Glucose (74-106) mg/dL Calcium (8.5-10.1) mg/dL AST (15-37) U/L Total Protein (6.4-8.2) g/dL Albumin (3.4-5.0) g/dL Urine Eosinophils 0-2 H (None Seen) /HPF 05/03/18 05/04/18 05/04/18 Range/Units 23:59 05:40 05:40 RBC 3.71 L (4.00-5.30) mil/mm3 Hct 34.0 L (35.0-46.0) % Neut % (Auto) 80.4 H (16.0-70.0) % Neut # (Auto) 8.3 H (1.8-7.7) th/mm3 PT 12.3 H (9.8-11.6) sec Potassium (3.5-5.1) meq/L Chloride (98-107) meq/L BUN (7-18) mg/dL Estimated GFR (>89) mL/min POC Glucose 230 H (68-110) mg/dl Random Glucose (74-106) mg/dL Calcium (8.5-10.1) mg/dL AST (15-37) U/L Total Protein (6.4-8.2) g/dL Albumin (3.4-5.0) g/dL Urine Eosinophils (None Seen) /HPF 05/04/18 Range/Units 05:40 RBC (4.00-5.30) mil/mm3 Hct (35.0-46.0) % Neut % (Auto) (16.0-70.0) % Neut # (Auto) (1.8-7.7) th/mm3 PT (9.8-11.6) sec Potassium 3.4 L D (3.5-5.1) meq/L Chloride 111 H (98-107) meq/L BUN 19 H (7-18) mg/dL Estimated GFR 71 L (>89) mL/min POC Glucose (68-110) mg/dl Random Glucose 246 H (74-106) mg/dL Calcium 7.8 L (8.5-10.1) mg/dL AST 13 L (15-37) U/L Total Protein 5.4 L (6.4-8.2) g/dL Albumin 2.5 L (3.4-5.0) g/dL Urine Eosinophils (None Seen) /HPF Short CBC 05/04/18 Range/Units 05:40 WBC 10.3 (4.0-11.0) th/mm3 Hgb 11.7 (11.6-15.3) gm/dL Hct 34.0 L (35.0-46.0) % Plt Count 279 (150-450) th/mm3 BMP 05/04/18 05:40 Sodium 142 Potassium 3.4 L D Chloride 111 H Carbon Dioxide 21.0 BUN 19 H Creatinine 0.81 Calcium 7.8 L Cardiac Enzymes 05/04/18 Range/Units 05:40 Total Creatine Kinase 86 (26-192) U/L Liver Function 05/04/18 Range/Units 05:40 Total Bilirubin 0.4 (0.2-1.0) mg/dL AST 13 L (15-37) U/L ALT 11 (10-53) U/L Alkaline Phosphatase 67 (45-117) U/L Albumin 2.5 L (3.4-5.0) g/dL <Roxanna Magana - 05/04/18 11:23> Abnormal lab results 05/03/18 05/03/18 05/03/18 Range/Units 11:37 18:13 18:45 RBC (4.00-5.30) mil/mm3 Hct (35.0-46.0) % Neut % (Auto) (16.0-70.0) % Neut # (Auto) (1.8-7.7) th/mm3 PT (9.8-11.6) sec Potassium (3.5-5.1) meq/L Chloride (98-107) meq/L BUN (7-18) mg/dL Estimated GFR (>89) mL/min POC Glucose 220 H 169 H (68-110) mg/dl Random Glucose (74-106) mg/dL Calcium (8.5-10.1) mg/dL AST (15-37) U/L Total Protein (6.4-8.2) g/dL Albumin (3.4-5.0) g/dL Urine Eosinophils 0-2 H (None Seen) /HPF 05/03/18 05/04/18 05/04/18 Range/Units 23:59 05:40 05:40 RBC 3.71 L (4.00-5.30) mil/mm3 Hct 34.0 L (35.0-46.0) % Neut % (Auto) 80.4 H (16.0-70.0) % Neut # (Auto) 8.3 H (1.8-7.7) th/mm3 PT 12.3 H (9.8-11.6) sec Potassium (3.5-5.1) meq/L Chloride (98-107) meq/L BUN (7-18) mg/dL Estimated GFR (>89) mL/min POC Glucose 230 H (68-110) mg/dl Random Glucose (74-106) mg/dL Calcium (8.5-10.1) mg/dL AST (15-37) U/L Total Protein (6.4-8.2) g/dL Albumin (3.4-5.0) g/dL Urine Eosinophils (None Seen) /HPF 05/04/18 Range/Units 05:40 RBC (4.00-5.30) mil/mm3 Hct (35.0-46.0) % Neut % (Auto) (16.0-70.0) % Neut # (Auto) (1.8-7.7) th/mm3 PT (9.8-11.6) sec Potassium 3.4 L D (3.5-5.1) meq/L Chloride 111 H (98-107) meq/L BUN 19 H (7-18) mg/dL Estimated GFR 71 L (>89) mL/min POC Glucose (68-110) mg/dl Random Glucose 246 H (74-106) mg/dL Calcium 7.8 L (8.5-10.1) mg/dL AST 13 L (15-37) U/L Total Protein 5.4 L (6.4-8.2) g/dL Albumin 2.5 L (3.4-5.0) g/dL Urine Eosinophils (None Seen) /HPF Short CBC 05/04/18 Range/Units 05:40 WBC 10.3 (4.0-11.0) th/mm3 Hgb 11.7 (11.6-15.3) gm/dL Hct 34.0 L (35.0-46.0) % Plt Count 279 (150-450) th/mm3 BMP 05/04/18 05:40 Sodium 142 Potassium 3.4 L D Chloride 111 H Carbon Dioxide 21.0 BUN 19 H Creatinine 0.81 Calcium 7.8 L Cardiac Enzymes 05/04/18 Range/Units 05:40 Total Creatine Kinase 86 (26-192) U/L Liver Function 05/04/18 Range/Units 05:40 Total Bilirubin 0.4 (0.2-1.0) mg/dL AST 13 L (15-37) U/L ALT 11 (10-53) U/L Alkaline Phosphatase 67 (45-117) U/L Albumin 2.5 L (3.4-5.0) g/dL <Eko R3,Janel U - 05/04/18 09:15> - Imaging Impressions Abdomen/Pelvis CT 05/03/18 00:00 CONCLUSION: 1. Questionable mass within the body of the pancreas measuring 1.7 x 2.6 cm. MRI of the abdomen with contrast may be helpful for further characterization of this questionable mass if clinically indicated. 2. Gallbladder wall is mildly thickened. If there is clinical concern for acute cholecystitis, a hepatobiliary scan may be helpful to confirm cystic duct obstruction. 3. Liver is enlarged and appears somewhat nodular in contour raising the possibility of cirrhosis. No focal mass is noted. 4. Small bilateral pleural effusions with adjacent alveolar consolidations are noted. 5. Tiny pericardial effusion. 6. Minimal ascites. 7. 11 mm calcified fibroid within the uterus. 8. Degenerative changes and scoliosis of the thoracolumbar spine. Chest CT 05/03/18 00:00 CONCLUSION: 1. Small bilateral pleural effusions. 2. Posterior bibasilar alveolar consolidations consistent with compressive atelectasis and/or pneumonia. Clinical correlation is recommended. 3. Tiny pericardial effusion. 4. Cardiomegaly and coronary artery calcifications. 5. No pulmonary nodule, mass or lymphadenopathy. 6. Scoliosis and degenerative changes involving the thoracic spine. <Roxanna Magana - 05/04/18 11:23> Impressions Abdomen/Pelvis CT 05/03/18 00:00 CONCLUSION: 1. Questionable mass within the body of the pancreas measuring 1.7 x 2.6 cm. MRI of the abdomen with contrast may be helpful for further characterization of this questionable mass if clinically indicated. 2. Gallbladder wall is mildly thickened. If there is clinical concern for acute cholecystitis, a hepatobiliary scan may be helpful to confirm cystic duct obstruction. 3. Liver is enlarged and appears somewhat nodular in contour raising the possibility of cirrhosis. No focal mass is noted. 4. Small bilateral pleural effusions with adjacent alveolar consolidations are noted. 5. Tiny pericardial effusion. 6. Minimal ascites. 7. 11 mm calcified fibroid within the uterus. 8. Degenerative changes and scoliosis of the thoracolumbar spine. Chest CT 05/03/18 00:00 CONCLUSION: 1. Small bilateral pleural effusions. 2. Posterior bibasilar alveolar consolidations consistent with compressive atelectasis and/or pneumonia. Clinical correlation is recommended. 3. Tiny pericardial effusion. 4. Cardiomegaly and coronary artery calcifications. 5. No pulmonary nodule, mass or lymphadenopathy. 6. Scoliosis and degenerative changes involving the thoracic spine. <Eko R3,Janel U - 05/04/18 09:15> Physical Exam Vital signs: Vital Signs 05/03/18 12:00 05/03/18 14:00 05/03/18 15:26 Temperature Pulse Rate 81 72 Respiratory Rate 14 Blood Pressure Pulse Oximetry 96 05/03/18 16:00 05/03/18 16:15 05/03/18 16:30 Temperature 98.7 F Pulse Rate 71 72 71 Respiratory Rate 14 14 14 Blood Pressure 112/59 L 113/64 118/67 Pulse Oximetry 96 96 99 05/03/18 16:35 05/03/18 16:45 05/03/18 17:00 Temperature Pulse Rate 71 73 74 Respiratory Rate 15 14 14 Blood Pressure 119/66 116/57 L Pulse Oximetry 100 98 05/03/18 17:15 05/03/18 17:30 05/03/18 17:45 Temperature Pulse Rate 74 74 72 Respiratory Rate 14 14 14 Blood Pressure 115/59 L 109/58 L 111/57 L Pulse Oximetry 96 96 96 05/03/18 18:00 05/03/18 18:15 05/03/18 18:30 Temperature Pulse Rate 75 74 74 Respiratory Rate 16 14 14 Blood Pressure 119/62 136/67 139/64 Pulse Oximetry 100 100 100 05/03/18 18:45 05/03/18 19:00 05/03/18 19:15 Temperature Pulse Rate 78 78 79 Respiratory Rate 14 14 14 Blood Pressure 145/68 H 140/67 140/68 Pulse Oximetry 94 L 100 100 05/03/18 19:30 05/03/18 19:45 05/03/18 20:00 Temperature 96.7 F L Pulse Rate 79 79 81 Respiratory Rate 14 14 14 Blood Pressure 142/69 H 144/70 H 149/72 H Pulse Oximetry 100 100 100 05/03/18 20:13 05/03/18 20:15 05/03/18 20:30 Temperature Pulse Rate 81 81 86 Respiratory Rate 14 14 14 Blood Pressure 149/70 H 152/72 H Pulse Oximetry 100 100 100 05/03/18 20:45 05/03/18 21:00 05/03/18 21:15 Temperature Pulse Rate 93 H 97 H 96 H Respiratory Rate 14 14 14 Blood Pressure 157/76 H 163/75 H 155/64 H Pulse Oximetry 100 100 100 05/03/18 21:30 05/03/18 21:45 05/03/18 22:00 Temperature Pulse Rate 93 H 92 H 92 H Respiratory Rate 14 14 14 Blood Pressure 152/70 H 152/70 H 153/69 H Pulse Oximetry 100 100 100 05/03/18 22:15 05/03/18 22:30 05/03/18 22:45 Temperature Pulse Rate 92 H 93 H 92 H Respiratory Rate 14 14 14 Blood Pressure 150/67 H 150/68 H 148/66 H Pulse Oximetry 100 100 100 05/03/18 23:00 05/03/18 23:15 05/03/18 23:30 Temperature Pulse Rate 91 H 91 H 91 H Respiratory Rate 14 14 14 Blood Pressure 145/65 H 146/65 H 150/67 H Pulse Oximetry 100 100 100 05/03/18 23:45 05/04/18 00:00 05/04/18 00:09 Temperature Pulse Rate 90 88 87 Respiratory Rate 14 14 14 Blood Pressure 149/67 H 149/59 H Pulse Oximetry 100 100 100 05/04/18 00:15 05/04/18 00:20 05/04/18 00:27 Temperature Pulse Rate 87 86 86 Respiratory Rate 14 14 14 Blood Pressure 147/67 H 146/65 H 145/63 H Pulse Oximetry 100 100 100 05/04/18 00:30 05/04/18 00:45 05/04/18 01:00 Temperature Pulse Rate 86 86 87 Respiratory Rate 14 14 14 Blood Pressure 145/64 H 144/67 H 146/65 H Pulse Oximetry 100 100 100 05/04/18 01:15 05/04/18 01:30 05/04/18 01:45 Temperature Pulse Rate 86 87 83 Respiratory Rate 14 14 14 Blood Pressure 142/55 H 146/67 H 141/65 H Pulse Oximetry 100 100 100 05/04/18 02:00 05/04/18 02:15 05/04/18 02:30 Temperature Pulse Rate 83 83 83 Respiratory Rate 14 14 14 Blood Pressure 139/65 137/65 138/62 Pulse Oximetry 100 100 100 05/04/18 02:45 05/04/18 03:00 05/04/18 03:01 Temperature Pulse Rate 84 81 82 Respiratory Rate 14 14 14 Blood Pressure 141/63 H 149/75 H 151/66 H Pulse Oximetry 100 95 96 05/04/18 03:08 05/04/18 03:15 05/04/18 03:30 Temperature Pulse Rate 80 80 80 Respiratory Rate 14 14 14 Blood Pressure 145/63 H 134/61 131/60 Pulse Oximetry 95 94 L 94 L 05/04/18 03:45 05/04/18 04:00 05/04/18 04:15 Temperature Pulse Rate 80 80 82 Respiratory Rate 14 14 14 Blood Pressure 128/60 131/63 146/66 H Pulse Oximetry 94 L 94 L 94 L 05/04/18 04:30 05/04/18 04:32 05/04/18 04:35 Temperature Pulse Rate 82 83 Respiratory Rate 14 14 14 Blood Pressure 148/67 H Pulse Oximetry 96 97 05/04/18 04:45 05/04/18 05:00 05/04/18 05:15 Temperature Pulse Rate 82 81 84 Respiratory Rate 14 14 14 Blood Pressure 143/67 H 136/63 136/62 Pulse Oximetry 100 100 100 05/04/18 05:32 05/04/18 05:45 05/04/18 06:00 Temperature Pulse Rate 86 85 86 Respiratory Rate 14 14 14 Blood Pressure 161/72 H 150/62 H 162/74 H Pulse Oximetry 99 99 99 05/04/18 06:15 05/04/18 06:30 05/04/18 06:45 Temperature Pulse Rate 84 84 85 Respiratory Rate 14 14 14 Blood Pressure 158/73 H 160/73 H 163/74 H Pulse Oximetry 98 99 99 05/04/18 06:55 05/04/18 07:00 05/04/18 07:15 Temperature Pulse Rate 86 85 84 Respiratory Rate 14 14 14 Blood Pressure 172/81 H 161/76 H 146/69 H Pulse Oximetry 98 99 99 05/04/18 07:30 05/04/18 07:45 05/04/18 08:00 Temperature 98.6 F Pulse Rate 83 82 82 Respiratory Rate 14 14 14 Blood Pressure 149/70 H 146/62 H 150/70 H Pulse Oximetry 99 99 100 05/04/18 08:15 05/04/18 08:30 05/04/18 08:33 Temperature Pulse Rate 81 80 80 Respiratory Rate 14 14 14 Blood Pressure 150/64 H 142/66 H Pulse Oximetry 100 100 93 L 05/04/18 08:45 05/04/18 09:00 05/04/18 09:15 Temperature Pulse Rate 80 79 78 Respiratory Rate 14 14 14 Blood Pressure 135/56 L 131/62 130/60 Pulse Oximetry 95 100 100 05/04/18 09:30 05/04/18 10:00 05/04/18 10:06 Temperature Pulse Rate 75 75 Respiratory Rate 14 14 Blood Pressure 129/62 Pulse Oximetry 100 100 Intake & Output 05/03/18 05/04/18 05/04/18 18:59 06:59 18:59 Intake Total 3292 / 3292 1824 / 1824 200 / 200 Output Total 800 / 800 1050 / 1050 Balance 2492 / 2492 774 / 774 200 / 200 Weight 69.7 kg Intake: IV 3150 / 3150 1400 / 1400 200 / 200 NS + KCl 20 mEq Inj 1,000 ML @ 1000 / 1000 100 mls/hr IV.CONT .Q10H [facility] Rx #:[id number] Diprivan 1000 mg/100 ml Inj 1, 200 / 200 300 / 300 100 / 100 000 mg In 100 ml @ 5 MCG/KG/MIN 1.95 mls/hr IV.CONT TITRATE PRN Rx#:[id number] 1/2 Normal Saline Inj 1,000 ML 1000 / 1000 @ 84 mls/hr IV.CONT .[id number] [facility] Rx#:[id number] Cardene Inj 25 MG In NS Inj 240 250 / 250 ML @ 5 MG/HR 50 mls/hr IV.CONT TITRATE PRN Rx#:[id number] Alburx 5% Inj 500 ML @ 250 mls/ 500 / 500 hr IV.SIG ONCE ONE Rx#:[id number] LR 1000 mL Inj 1,000 ML @ Wide 1000 / 1000 Open IV.SIG BOLUS ONE Rx#: [id number] Magnesium Sulfate Inj 2 GM In 100 / 100 NS Inj 96 ML @ 50 mls/hr IV.SIG ONCE ONE Rx#:[id number] KCl 20 mEq Premix Inj 20 meq In 100 / 100 100 ml @ 50 mls/hr IV.SIG Q2H [facility] Rx#:[id number] Keppra 1000 mg/100 mL Premix 100 / 100 100 / 100 100 ML @ 400 mls/hr IV.SIG Q12H [facility] Rx#:[id number] Tube Feeding / 324 / 324 Tube Irrigant 120 / 120 Water Bolus Amount 100 / 100 Output: Urine 0 / 0 200 / 200 Urine Amount (Catheter) 800 / 800 850 / 850 Straight 800 / 800 850 / 850 Other: Date of Last Bowel Movement 05/02/18 05/04/18 05/04/18 <ChinoRoxanna M - 05/04/18 11:23> Vital Signs 05/03/18 10:00 05/03/18 12:00 05/03/18 14:00 Temperature Pulse Rate 80 81 72 Respiratory Rate Blood Pressure Pulse Oximetry 05/03/18 15:26 05/03/18 16:00 05/03/18 16:15 Temperature 98.7 F Pulse Rate 71 72 Respiratory Rate 14 14 14 Blood Pressure 112/59 L 113/64 Pulse Oximetry 96 96 96 05/03/18 16:30 05/03/18 16:35 05/03/18 16:45 Temperature Pulse Rate 71 71 73 Respiratory Rate 14 15 14 Blood Pressure 118/67 119/66 Pulse Oximetry 99 100 05/03/18 17:00 05/03/18 17:15 05/03/18 17:30 Temperature Pulse Rate 74 74 74 Respiratory Rate 14 14 14 Blood Pressure 116/57 L 115/59 L 109/58 L Pulse Oximetry 98 96 96 05/03/18 17:45 05/03/18 18:00 05/03/18 18:15 Temperature Pulse Rate 72 75 74 Respiratory Rate 14 16 14 Blood Pressure 111/57 L 119/62 136/67 Pulse Oximetry 96 100 100 05/03/18 18:30 05/03/18 18:45 05/03/18 19:00 Temperature Pulse Rate 74 78 78 Respiratory Rate 14 14 14 Blood Pressure 139/64 145/68 H 140/67 Pulse Oximetry 100 94 L 100 05/03/18 19:15 05/03/18 19:30 05/03/18 19:45 Temperature Pulse Rate 79 79 79 Respiratory Rate 14 14 14 Blood Pressure 140/68 142/69 H 144/70 H Pulse Oximetry 100 100 100 05/03/18 20:00 05/03/18 20:13 05/03/18 20:15 Temperature 96.7 F L Pulse Rate 81 81 81 Respiratory Rate 14 14 14 Blood Pressure 149/72 H 149/70 H Pulse Oximetry 100 100 100 05/03/18 20:30 05/03/18 20:45 05/03/18 21:00 Temperature Pulse Rate 86 93 H 97 H Respiratory Rate 14 14 14 Blood Pressure 152/72 H 157/76 H 163/75 H Pulse Oximetry 100 100 100 05/03/18 21:15 05/03/18 21:30 05/03/18 21:45 Temperature Pulse Rate 96 H 93 H 92 H Respiratory Rate 14 14 14 Blood Pressure 155/64 H 152/70 H 152/70 H Pulse Oximetry 100 100 100 05/03/18 22:00 05/03/18 22:15 05/03/18 22:30 Temperature Pulse Rate 92 H 92 H 93 H Respiratory Rate 14 14 14 Blood Pressure 153/69 H 150/67 H 150/68 H Pulse Oximetry 100 100 100 05/03/18 22:45 05/03/18 23:00 05/03/18 23:15 Temperature Pulse Rate 92 H 91 H 91 H Respiratory Rate 14 14 14 Blood Pressure 148/66 H 145/65 H 146/65 H Pulse Oximetry 100 100 100 05/03/18 23:30 05/03/18 23:45 05/04/18 00:00 Temperature Pulse Rate 91 H 90 88 Respiratory Rate 14 14 14 Blood Pressure 150/67 H 149/67 H 149/59 H Pulse Oximetry 100 100 100 05/04/18 00:09 05/04/18 00:15 05/04/18 00:20 Temperature Pulse Rate 87 87 86 Respiratory Rate 14 14 14 Blood Pressure 147/67 H 146/65 H Pulse Oximetry 100 100 100 05/04/18 00:27 05/04/18 00:30 05/04/18 00:45 Temperature Pulse Rate 86 86 86 Respiratory Rate 14 14 14 Blood Pressure 145/63 H 145/64 H 144/67 H Pulse Oximetry 100 100 100 05/04/18 01:00 05/04/18 01:15 05/04/18 01:30 Temperature Pulse Rate 87 86 87 Respiratory Rate 14 14 14 Blood Pressure 146/65 H 142/55 H 146/67 H Pulse Oximetry 100 100 100 05/04/18 01:45 05/04/18 02:00 05/04/18 02:15 Temperature Pulse Rate 83 83 83 Respiratory Rate 14 14 14 Blood Pressure 141/65 H 139/65 137/65 Pulse Oximetry 100 100 100 05/04/18 02:30 05/04/18 02:45 05/04/18 03:00 Temperature Pulse Rate 83 84 81 Respiratory Rate 14 14 14 Blood Pressure 138/62 141/63 H 149/75 H Pulse Oximetry 100 100 95 05/04/18 03:01 05/04/18 03:08 05/04/18 03:15 Temperature Pulse Rate 82 80 80 Respiratory Rate 14 14 14 Blood Pressure 151/66 H 145/63 H 134/61 Pulse Oximetry 96 95 94 L 05/04/18 03:30 05/04/18 03:45 05/04/18 04:00 Temperature Pulse Rate 80 80 80 Respiratory Rate 14 14 14 Blood Pressure 131/60 128/60 131/63 Pulse Oximetry 94 L 94 L 94 L 05/04/18 04:15 05/04/18 04:30 05/04/18 04:32 Temperature Pulse Rate 82 82 Respiratory Rate 14 14 14 Blood Pressure 146/66 H 148/67 H Pulse Oximetry 94 L 96 97 05/04/18 04:35 05/04/18 04:45 05/04/18 05:00 Temperature Pulse Rate 83 82 81 Respiratory Rate 14 14 14 Blood Pressure 143/67 H 136/63 Pulse Oximetry 100 100 05/04/18 05:15 05/04/18 05:32 05/04/18 05:45 Temperature Pulse Rate 84 86 85 Respiratory Rate 14 14 14 Blood Pressure 136/62 161/72 H 150/62 H Pulse Oximetry 100 99 99 05/04/18 06:00 05/04/18 06:15 05/04/18 06:30 Temperature Pulse Rate 86 84 84 Respiratory Rate 14 14 14 Blood Pressure 162/74 H 158/73 H 160/73 H Pulse Oximetry 99 98 99 05/04/18 06:45 05/04/18 06:55 05/04/18 07:00 Temperature Pulse Rate 85 86 85 Respiratory Rate 14 14 14 Blood Pressure 163/74 H 172/81 H 161/76 H Pulse Oximetry 99 98 99 05/04/18 07:15 05/04/18 07:30 05/04/18 08:33 Temperature Pulse Rate 84 83 80 Respiratory Rate 14 14 14 Blood Pressure 146/69 H 149/70 H Pulse Oximetry 99 99 93 L Intake & Output 05/03/18 05/04/18 05/04/18 18:59 06:59 18:59 Intake Total 3292 / 3292 1824 / 1824 Output Total 800 / 800 1050 / 1050 Balance 2492 / 2492 774 / 774 Weight 69.7 kg Intake: IV 3150 / 3150 1400 / 1400 NS + KCl 20 mEq Inj 1,000 ML @ 1000 / 1000 100 mls/hr IV.CONT .Q10H [facility] Rx #:[id number] Diprivan 1000 mg/100 ml Inj 1, 200 / 200 300 / 300 000 mg In 100 ml @ 5 MCG/KG/MIN 1.95 mls/hr IV.CONT TITRATE PRN Rx#:[id number] 1/2 Normal Saline Inj 1,000 ML 1000 / 1000 @ 84 mls/hr IV.CONT .[id number] [facility] Rx#:[id number] Cardene Inj 25 MG In NS Inj 240 250 / 250 ML @ 5 MG/HR 50 mls/hr IV.CONT TITRATE PRN Rx#:[id number] Alburx 5% Inj 500 ML @ 250 mls/ 500 / 500 hr IV.SIG ONCE ONE Rx#:[id number] LR 1000 mL Inj 1,000 ML @ Wide 1000 / 1000 Open IV.SIG BOLUS ONE Rx#: [id number] Magnesium Sulfate Inj 2 GM In 100 / 100 NS Inj 96 ML @ 50 mls/hr IV.SIG ONCE ONE Rx#:[id number] Keppra 1000 mg/100 mL Premix 100 / 100 100 / 100 100 ML @ 400 mls/hr IV.SIG Q12H [facility] Rx#:[id number] Tube Feeding / 324 / 324 Tube Irrigant 120 / 120 Water Bolus Amount 100 / 100 Output: Urine 0 / 0 200 / 200 Urine Amount (Catheter) 800 / 800 850 / 850 Straight 800 / 800 850 / 850 Other: Date of Last Bowel Movement 05/02/18 05/04/18 <Eko R3,Janel U - 05/04/18 09:15> Narrative: Patient is intubated and sedated HEENT: Atraumatic. Normocephalic. REGIS, Obvious swelling of tongue and lips Neck: Supple CV: RRR Lungs: No accessory muscle use, CTAB ABd. 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 Ext: Mild LE edema <Eko R3,Janel U - 05/04/18 09:21> - Urinary Catheter Management Straight Cath placed during this visit: no <Roxanna Magana - 05/04/18 11:23> no <Eko Janel Tyson U - 05/04/18 10:11> Assessment and Plan - Assessment (1) Acute respiratory failure Code(s): J96.00 - Acute respiratory failure, unspecified whether with hypoxia or hypercapnia Status: Acute (2) Angioedema Code(s): T78.3XXA - Angioneurotic edema, initial encounter Status: Acute (3) Catatonia associated with another mental disorder Code(s): F06.1 - Catatonic disorder due to known physiological condition Status: Acute (4) PRES (posterior reversible encephalopathy syndrome) Code(s): I67.83 - Posterior reversible encephalopathy syndrome Status: Acute (5) HTN (hypertension) Code(s): I10 - Essential (primary) hypertension Status: Acute (6) Seizures Code(s): R56.9 - Unspecified convulsions Status: Acute (7) Hyperlipidemia Code(s): E78.5 - Hyperlipidemia, unspecified Status: Chronic (8) Diabetes Code(s): E11.9 - Type 2 diabetes mellitus without complications Status: Chronic (9) Clavicle fracture Code(s): S42.009A - Fracture of unspecified part of unspecified clavicle, initial encounter for closed fracture Status: Acute (10) Nutrition, metabolism, and development symptoms Code(s): R63.8 - Other symptoms and signs concerning food and fluid intake Status: Acute <Roxanna Magana - 05/04/18 11:23> (1) Acute respiratory failure Code(s): J96.00 - Acute respiratory failure, unspecified whether with hypoxia or hypercapnia Status: Acute (2) Angioedema Code(s): T78.3XXA - Angioneurotic edema, initial encounter Status: Acute (3) Catatonia associated with another mental disorder Code(s): F06.1 - Catatonic disorder due to known physiological condition Status: Acute (4) PRES (posterior reversible encephalopathy syndrome) Code(s): I67.83 - Posterior reversible encephalopathy syndrome Status: Acute (5) HTN (hypertension) Code(s): I10 - Essential (primary) hypertension Status: Acute (6) Seizures Code(s): R56.9 - Unspecified convulsions Status: Acute (7) Hyperlipidemia Code(s): E78.5 - Hyperlipidemia, unspecified Status: Chronic (8) Diabetes Code(s): E11.9 - Type 2 diabetes mellitus without complications Status: Chronic (9) Clavicle fracture Code(s): S42.009A - Fracture of unspecified part of unspecified clavicle, initial encounter for closed fracture Status: Acute (10) Nutrition, metabolism, and development symptoms Code(s): R63.8 - Other symptoms and signs concerning food and fluid intake Status: Acute <Eko R3,Janel U - 05/04/18 10:10> - Assessment and Plan 68 yo female with dementia, HTN, DM admitted with: Catatonia Medical work-up has been negative except for PRES. Given that her altered mental status preceded her hypertension it is likely that the root cause of her altered mental state is catatonia. She does have a component of PRES by MRI but this is most likely due to hypertension caused by catatonia rather than primary hypertension leading to encephalopathy. CBC and CK within normal limits; no signs of NMS ABG essentially normal Ammonia very slightly elevated, unlikely to be etiology of her mental status LATONYA screen positive, titer pending RF negative RPR negative ESR normal * Continue Lexapro and Seroquel * Ativan stopped due to hypotension, respiratory failure from angioedema * Discussed case with psychiatry Dr. Acosta, appreciate assistance * Only treatment likely to improve her depression/catatonia is ECT - Dr. Acosta to discuss with cyanide case hardener to make arrangements to transfer her to a facility that performs ECT. She is not stable for transfer at the moment. * CT abdomen/pelvis revealed pancreatic mass. Will check MRI today per radiology recommendations * Normal CA 19/9, CEA and CA 125 * Manage hypertension as noted below Acute Respiratory Failure due to angioedema Now intubated: PEEP 5, RR 14, TV 500, FIO2 35% * CCM consulted, appreciate assistance * diphenhydramine 50 mg IV every 6 hours, famotidine 20 mg IV twice daily * Duonebs Q4H PRES MRI findings suggestive of PRES * Neurology following, appreciate assistance * Control BP as below Hypertension BP still intermittently elevated likely related to catatonia Difficulty taking PO meds due to fluctuating mental status * Due to PRES needs tighter BP control per neurology: goal SBP 110-120 * Continue nicardipine drip titrated to target BP < 120/90 * Amlodipine 5mg added this am by nephrology * Hydralazine, Nitropaste and labetalol as needed * Consulted nephrology to assist with other secondary causes of HTN, though most likely etiology still catatonia Seizure Disorder Now with possible repeat seizure vs (more likely) catalepsy from catatonia EEG with nonspecific encephalopathy MRI/MRA unremarkable except for PRES as noted LP performed 05/02/18 - chemistries / cultures normal so far * Neurology on board, appreciate assistance * Continue Keppra to 1000 mg IV BID * Control BP as part of PRES management * Treat catatonia as above Diabetes mellitus BG at hospital goal now * Check sugar Q6H now that she is on continuous tube feedings * Holding metformin for now * Low dose SSI Hyperlipidemia * Continue home atorvastatin Right [id number]-[id number] amputation PT/OT evaluate and treat Fluids: IV NS + 20 mEq/L KCl at 100 CC/HR Diet: Pureed as tolerated, Ensure shakes/pudding ad aisha for caloric support * Nutritional status has been poor for last > 1 week, not eating much * Consulted environmental construction engineer, appreciate recs * Glucerna 1.5 @ 45mL/hr GI: Famotidine Docusate serum/senna 1 tablet twice daily for bowel regimen DVT: Heparin BID ICU electrolyte protocol Social: Resident spoke with patient's daughter on the previous day and gave update on care plan <Janel Whitt - 05/04/18 10:11> Discussed Condition With: Pt's nurse <Janel Whitt [facility] 05/04/18 09:35> Discharge Planning: Pending clinical improvement <Janel Whitt [facility] 05/04/18 10:11> - Attending Attestation The exam, history, and the medical decision-making described in the above note were completed with the assistance of the resident physician. I reviewed and agree with the findings presented. I attest that I had a [id number] encounter with the patient on the same day, and personally performed and documented my assessment and findings in the medical record. agree with Dr Chakraborty assessment of her very swollen tongue. everything is on hold until that improves <Roxanna Magana M - 05/04/18 11:23> <Janel Whitt U - Last Filed: 05/04/18 10:10> (2) Angioedema Qualifiers: Encounter type: initial encounter Qualified Code(s): T78.3XXA - Angioneurotic edema, initial encounter (5) HTN (hypertension) Qualifiers: Hypertension type: other secondary hypertension Qualified Code(s): I15.8 - Other secondary hypertension (7) Hyperlipidemia Qualifiers: Hyperlipidemia type: pure hypercholesterolemia Qualified Code(s): E78.00 - Pure hypercholesterolemia, unspecified; E78.0 - Pure hypercholesterolemia (8) Diabetes Qualifiers: Diabetes mellitus type: type 2 Diabetes mellitus half-way insulin use: unspecified long term care phlebotomist insulin use status Diabetes mellitus complication status : with circulatory complication Diabetes mellitus complication detail: with peripheral angiopathy without gangrene Qualified Code(s): E11.51 - Type 2 diabetes 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 <Roxanna Magana M - Last Filed: 05/04/18 11:23> (2) Angioedema Qualifiers: Encounter type: initial encounter Qualified Code(s): T78.3XXA - Angioneurotic edema, initial encounter (5) HTN (hypertension) Qualifiers: Hypertension type: other secondary hypertension Qualified Code(s): I15.8 - Other secondary hypertension (7) Hyperlipidemia Qualifiers: Hyperlipidemia type: pure hypercholesterolemia Qualified Code(s): E78.00 - Pure hypercholesterolemia, unspecified; E78.0 - Pure hypercholesterolemia (8) Diabetes Qualifiers: Diabetes mellitus type: type 2 Diabetes mellitus long term care phlebotomist insulin use: unspecified half-way insulin use status Diabetes mellitus complication status : with circulatory complication Diabetes mellitus complication detail: with peripheral angiopathy without gangrene Qualified Code(s): E11.51 - Type 2 diabetes 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 <Janel Whitt U - Last Filed: 05/04/18 10:10> (2) Angioedema Qualifiers: Encounter type: initial encounter Qualified Code(s): T78.3XXA - Angioneurotic edema, initial encounter (5) HTN (hypertension) Qualifiers: Hypertension type: other secondary hypertension Qualified Code(s): I15.8 - Other secondary hypertension (7) Hyperlipidemia Qualifiers: Hyperlipidemia type: pure hypercholesterolemia Qualified Code(s): E78.00 - Pure hypercholesterolemia, unspecified; E78.0 - Pure hypercholesterolemia (8) Diabetes Qualifiers: Diabetes mellitus type: type 2 Diabetes mellitus long term care phlebotomist insulin use: unspecified half-way insulin use status Diabetes mellitus complication status : with circulatory complication Diabetes mellitus complication detail: with peripheral angiopathy without gangrene Qualified Code(s): E11.51 - Type 2 diabetes 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 <Roxanna Magana M - Last Filed: 05/04/18 11:23> (2) Angioedema Qualifiers: Encounter type: initial encounter Qualified Code(s): T78.3XXA - Angioneurotic edema, initial encounter (5) HTN (hypertension) Qualifiers: Hypertension type: other secondary hypertension Qualified Code(s): I15.8 - Other secondary hypertension (7) Hyperlipidemia Qualifiers: Hyperlipidemia type: pure hypercholesterolemia Qualified Code(s): E78.00 - Pure hypercholesterolemia, unspecified; E78.0 - Pure hypercholesterolemia (8) Diabetes Qualifiers: Diabetes mellitus type: type 2 Diabetes mellitus long term care phlebotomist insulin use: unspecified long term care phlebotomist insulin use status Diabetes mellitus complication status : with circulatory complication Diabetes mellitus complication detail: with peripheral angiopathy without gangrene Qualified Code(s): E11.51 - Type 2 diabetes 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
--- NOTE | 2018-05-04 09:38 | P.PNNP ---
Subjective Interval history: Patient remain intubated and sedated. Physical Exam Vital signs: Vital Signs 05/03/18 10:00 05/03/18 12:00 05/03/18 14:00 Temperature Pulse Rate 80 81 72 Respiratory Rate Blood Pressure Pulse Oximetry 05/03/18 15:26 05/03/18 16:00 05/03/18 16:15 Temperature 98.7 F Pulse Rate 71 72 Respiratory Rate 14 14 14 Blood Pressure 112/59 L 113/64 Pulse Oximetry 96 96 96 05/03/18 16:30 05/03/18 16:35 05/03/18 16:45 Temperature Pulse Rate 71 71 73 Respiratory Rate 14 15 14 Blood Pressure 118/67 119/66 Pulse Oximetry 99 100 05/03/18 17:00 05/03/18 17:15 05/03/18 17:30 Temperature Pulse Rate 74 74 74 Respiratory Rate 14 14 14 Blood Pressure 116/57 L 115/59 L 109/58 L Pulse Oximetry 98 96 96 05/03/18 17:45 05/03/18 18:00 05/03/18 18:15 Temperature Pulse Rate 72 75 74 Respiratory Rate 14 16 14 Blood Pressure 111/57 L 119/62 136/67 Pulse Oximetry 96 100 100 05/03/18 18:30 05/03/18 18:45 05/03/18 19:00 Temperature Pulse Rate 74 78 78 Respiratory Rate 14 14 14 Blood Pressure 139/64 145/68 H 140/67 Pulse Oximetry 100 94 L 100 05/03/18 19:15 05/03/18 19:30 05/03/18 19:45 Temperature Pulse Rate 79 79 79 Respiratory Rate 14 14 14 Blood Pressure 140/68 142/69 H 144/70 H Pulse Oximetry 100 100 100 05/03/18 20:00 05/03/18 20:13 05/03/18 20:15 Temperature 96.7 F L Pulse Rate 81 81 81 Respiratory Rate 14 14 14 Blood Pressure 149/72 H 149/70 H Pulse Oximetry 100 100 100 05/03/18 20:30 05/03/18 20:45 05/03/18 21:00 Temperature Pulse Rate 86 93 H 97 H Respiratory Rate 14 14 14 Blood Pressure 152/72 H 157/76 H 163/75 H Pulse Oximetry 100 100 100 05/03/18 21:15 05/03/18 21:30 05/03/18 21:45 Temperature Pulse Rate 96 H 93 H 92 H Respiratory Rate 14 14 14 Blood Pressure 155/64 H 152/70 H 152/70 H Pulse Oximetry 100 100 100 05/03/18 22:00 05/03/18 22:15 05/03/18 22:30 Temperature Pulse Rate 92 H 92 H 93 H Respiratory Rate 14 14 14 Blood Pressure 153/69 H 150/67 H 150/68 H Pulse Oximetry 100 100 100 05/03/18 22:45 05/03/18 23:00 05/03/18 23:15 Temperature Pulse Rate 92 H 91 H 91 H Respiratory Rate 14 14 14 Blood Pressure 148/66 H 145/65 H 146/65 H Pulse Oximetry 100 100 100 05/03/18 23:30 05/03/18 23:45 05/04/18 00:00 Temperature Pulse Rate 91 H 90 88 Respiratory Rate 14 14 14 Blood Pressure 150/67 H 149/67 H 149/59 H Pulse Oximetry 100 100 100 05/04/18 00:09 05/04/18 00:15 05/04/18 00:20 Temperature Pulse Rate 87 87 86 Respiratory Rate 14 14 14 Blood Pressure 147/67 H 146/65 H Pulse Oximetry 100 100 100 05/04/18 00:27 05/04/18 00:30 05/04/18 00:45 Temperature Pulse Rate 86 86 86 Respiratory Rate 14 14 14 Blood Pressure 145/63 H 145/64 H 144/67 H Pulse Oximetry 100 100 100 05/04/18 01:00 05/04/18 01:15 05/04/18 01:30 Temperature Pulse Rate 87 86 87 Respiratory Rate 14 14 14 Blood Pressure 146/65 H 142/55 H 146/67 H Pulse Oximetry 100 100 100 05/04/18 01:45 05/04/18 02:00 05/04/18 02:15 Temperature Pulse Rate 83 83 83 Respiratory Rate 14 14 14 Blood Pressure 141/65 H 139/65 137/65 Pulse Oximetry 100 100 100 05/04/18 02:30 05/04/18 02:45 05/04/18 03:00 Temperature Pulse Rate 83 84 81 Respiratory Rate 14 14 14 Blood Pressure 138/62 141/63 H 149/75 H Pulse Oximetry 100 100 95 05/04/18 03:01 05/04/18 03:08 05/04/18 03:15 Temperature Pulse Rate 82 80 80 Respiratory Rate 14 14 14 Blood Pressure 151/66 H 145/63 H 134/61 Pulse Oximetry 96 95 94 L 05/04/18 03:30 05/04/18 03:45 05/04/18 04:00 Temperature Pulse Rate 80 80 80 Respiratory Rate 14 14 14 Blood Pressure 131/60 128/60 131/63 Pulse Oximetry 94 L 94 L 94 L 05/04/18 04:15 05/04/18 04:30 05/04/18 04:32 Temperature Pulse Rate 82 82 Respiratory Rate 14 14 14 Blood Pressure 146/66 H 148/67 H Pulse Oximetry 94 L 96 97 05/04/18 04:35 05/04/18 04:45 05/04/18 05:00 Temperature Pulse Rate 83 82 81 Respiratory Rate 14 14 14 Blood Pressure 143/67 H 136/63 Pulse Oximetry 100 100 05/04/18 05:15 05/04/18 05:32 05/04/18 05:45 Temperature Pulse Rate 84 86 85 Respiratory Rate 14 14 14 Blood Pressure 136/62 161/72 H 150/62 H Pulse Oximetry 100 99 99 05/04/18 06:00 05/04/18 06:15 05/04/18 06:30 Temperature Pulse Rate 86 84 84 Respiratory Rate 14 14 14 Blood Pressure 162/74 H 158/73 H 160/73 H Pulse Oximetry 99 98 99 05/04/18 06:45 05/04/18 06:55 05/04/18 07:00 Temperature Pulse Rate 85 86 85 Respiratory Rate 14 14 14 Blood Pressure 163/74 H 172/81 H 161/76 H Pulse Oximetry 99 98 99 05/04/18 07:15 05/04/18 07:30 05/04/18 08:33 Temperature Pulse Rate 84 83 80 Respiratory Rate 14 14 14 Blood Pressure 146/69 H 149/70 H Pulse Oximetry 99 99 93 L Intake & Output 05/03/18 05/04/18 05/04/18 18:59 06:59 18:59 Intake Total 3292 / 3292 1824 / 1824 Output Total 800 / 800 1050 / 1050 Balance 2492 / 2492 774 / 774 Weight 69.7 kg Intake: IV 3150 / 3150 1400 / 1400 NS + KCl 20 mEq Inj 1,000 ML @ 1000 / 1000 100 mls/hr IV.CONT .Q10H [facility] Rx #:[id number] Diprivan 1000 mg/100 ml Inj 1, 200 / 200 300 / 300 000 mg In 100 ml @ 5 MCG/KG/MIN 1.95 mls/hr IV.CONT TITRATE PRN Rx#:[id number] 1/2 Normal Saline Inj 1,000 ML 1000 / 1000 @ 84 mls/hr IV.CONT .[id number] [facility] Rx#:[id number] Cardene Inj 25 MG In NS Inj 240 250 / 250 ML @ 5 MG/HR 50 mls/hr IV.CONT TITRATE PRN Rx#:[id number] Alburx 5% Inj 500 ML @ 250 mls/ 500 / 500 hr IV.SIG ONCE ONE Rx#:[id number] LR 1000 mL Inj 1,000 ML @ Wide 1000 / 1000 Open IV.SIG BOLUS ONE Rx#: [id number] Magnesium Sulfate Inj 2 GM In 100 / 100 NS Inj 96 ML @ 50 mls/hr IV.SIG ONCE ONE Rx#:[id number] Keppra 1000 mg/100 mL Premix 100 / 100 100 / 100 100 ML @ 400 mls/hr IV.SIG Q12H [facility] Rx#:[id number] Tube Feeding / 324 / 324 Tube Irrigant 120 / 120 Water Bolus Amount 100 / 100 Output: Urine 0 / 0 200 / 200 Urine Amount (Catheter) 800 / 800 850 / 850 Straight 800 / 800 850 / 850 Other: Date of Last Bowel Movement 05/02/18 05/04/18 05/04/18 Narrative: Patient is intubated and sedated HEENT: Atraumatic. Normocephalic. REGIS, Obvious swelling of tongue and lips Neck: Supple CV: RRR Lungs: No accessory muscle use, CTAB ABd. 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 Ext: Mild LE edema - Urinary Catheter Management Straight Cath placed during this visit: no Assessment and Plan - Assessment (1) Acute respiratory failure Code(s): J96.00 - Acute respiratory failure, unspecified whether with hypoxia or hypercapnia Status: Acute (2) Angioedema Code(s): T78.3XXA - Angioneurotic edema, initial encounter Status: Acute Qualifiers: Encounter type: initial encounter Qualified Code(s): T78.3XXA - Angioneurotic edema, initial encounter (3) PRES (posterior reversible encephalopathy syndrome) Code(s): I67.83 - Posterior reversible encephalopathy syndrome Status: Acute (4) Anxiety Code(s): F41.9 - Anxiety disorder, unspecified Status: Acute (5) Dementia Code(s): F03.90 - Unspecified dementia without behavioral disturbance Status: Acute (6) HTN (hypertension) Code(s): I10 - Essential (primary) hypertension Status: Acute Qualifiers: Hypertension type: other secondary hypertension Qualified Code(s): I15.8 - Other secondary hypertension - Plan Patient is intubated with swelling of tongue and lips. BP need better control as per Neurology, to keep SBP 120 or less. BP is elevated, on hydralazine via OGT and IV. Also on Labetalol IV PRN. Added now Amlodipine, will follow. Creatinine has been normal. Neurology following. Weaning as per CCM.
[2018-05-04] MEDS ORDERED: Gadobutrol PF 10 MMOL/10 ML Vial (for RAD) IV.SIG ONE (18:24)
--- NOTE | 2018-05-04 18:38 | MR ---
EXAM DATE: 05/04/2018 6:26 PM EST AGE/SEX: 68 years / Female INDICATIONS: Pancreatitis. CLINICAL DATA: This is the patient's subsequent encounter. Patient reports that signs and symptoms h ave been present for 1 week and indicates a pain score of 0/10. MEDICAL/SURGICAL HISTORY: Lymphoma. Dementia. Cerebrovascular disease. . Right BKA. Wrist capo lida. COMPARISON: [facility] [place]EL[place] W/O CONTRAST, 05/03/2018. . TECHNIQUE: Multiplanar, multisequence images of the abdomen were obtained prior to and following adm inistration of 10cc ml Gadavist (gadobutrol) contrast as a single exam dose with dynamic multiphase t echnique. FINDINGS: No discrete mass is identified on MRI. No bilateral effusions and basilar atelectasis in the lungs. Trace pericardial fluid. There is mild a scites with some gallbladder wall thickening and pericholecystic fluid. Also mild to moderate anasarc a. No suspicious mass identified in the liver, spleen, adrenals or kidneys. No discrete pancreatic mass is identified. Nasogastric tube is present in stomach. CONCLUSION: 1. No pancreatic mass identified on MRI. 2. Bilateral pleural effusions. Moderate anasarca. Mild ascites. Electronically signed by: Daniel Edgar MD Board Certified Radiologist 05/04/2018 6:36 PM EST
[2018-05-05] MEDS: Insulin NovoLOG Aspart Correctional Sugar Inj SQ SCH ×5 (00:05→23:46)
[2018-05-05] MEDS: levETIRAcetam 1000mg/100mL Inj 100 ML IV.SIG SCH ×2 (00:06→12:00)
[2018-05-05] MEDS: Oral Hygiene Kit OROPHARYNG SCH ×5 (00:06→23:47)
[2018-05-05] MEDS: Chlorhexidine Gluconate 2% 1 Pack (2 Cloths) TOPICAL SCH (03:44)
[2018-05-05] MEDS: Propofol 1000 mg/100 ml Inj 1,000 MG/100 ML BOTTLE IV.CONT PRN ×4 (04:40→20:33)
[2018-05-05] MEDS: niCARdipine Inj 25 MG in Sodium Chlor 0.9% Inj 240 ML IV.CONT PRN ×6 (04:40→23:12)
[2018-05-05 06:05] LABS: Baso # (Auto) 0.1 th/mm3 (0.0-0.2); Baso % (Auto) 0.7 % (0.0-2.0); Eos # (Auto) 0.1 th/mm3 (0.0-0.4); Eos % (Auto) 1.2 % (0.0-4.0); Hemoglobin 12.7 gm/dL (11.6-15.3); Lymph # (Auto) 2.3 th/mm3 (1.0-4.8); Lymph % (Auto) 20.3 % (9.0-44.0); Mean Corpuscular HGB Conc 33.4 % (32.0-36.0); Mean Corpuscular Hemoglobin 31.4 pg (27.0-34.0); Mean Corpuscular Volume 94.2 fL (80.0-100.0); Mean Platelet Volume 9.6 fL (7.0-11.0); Mono # (Auto) 1.2 th/mm3 (0.0-0.9); Mono % (Auto) 10.4 % (0.0-8.0); Neut # (Auto) 7.7 th/mm3 (1.8-7.7); Neut % (Auto) 67.4 % (16.0-70.0); Platelet Count 316 th/mm3 (150-450); Red Blood Count 4.03 mil/mm3 (4.00-5.30); Red Cell Distribution Width 14.9 % (11.6-17.2); White Blood Count 11.5 th/mm3 (4.0-11.0)
--- NOTE | 2018-05-05 06:29 | XR ---
EXAM DATE: 05/05/2018 6:03 AM EST AGE/SEX: 68 years / Female INDICATIONS: Shortness of breath, possible pulmonary disease. CLINICAL DATA: This is the patient's subsequent encounter. Patient reports that signs and symptoms h ave been present for 2 weeks and indicates a pain score of Nonresponsive. MEDICAL/SURGICAL HISTORY: . Hypertension. Dementia. Diabetes. Cerebrovascular attack. Non-Hodg kin lymphoma. Non-responsive. [place] [facility] [place]. . FINDINGS: Modest worsening bibasilar atelectasis and small pleural effusions. No pneumothorax seen. Heart size stable, within normal limits. Endotracheal tube tip is approximately 2 cm above the tim. There is a nasogastric tube coursing in to the stomach, new. CONCLUSION: Worsening mild consolidation and small pleural effusions at each base. New nasogastric tube coursing into the stomach, tip not included on the study. Endotracheal tube tip is about 2 cm above the tim . Electronically signed by: Thanh Cruz MD Board Certified Radiologist 05/05/2018 6:27 AM EST
[2018-05-05 06:44] LABS: Alanine Aminotransferase 12 U/L (10-53); Albumin 2.3 g/dL (3.4-5.0); Alkaline Phosphatase 67 U/L (45-117); Anion Gap 11 meq/L (5-15); Aspartate Aminotransferase 21 U/L (15-37); Blood Urea Nitrogen 23 mg/dL (7-18); Calcium 7.7 mg/dL (8.5-10.1); Chloride 113 meq/L (98-107); Glomerular Filtration Rate 63 mL/min (>89); Glucose,Random 145 mg/dL (74-106); Magnesium 2.2 mg/dL (1.5-2.5); Phosphorus 3.3 mg/dL (2.5-4.9); Sodium 142 meq/L (136-145); Total Protein 5.3 g/dL (6.4-8.2)
[2018-05-05] MEDS: Artificial Tears Opth Drops 15 ML Bottle EACH EYE SCH ×3 (07:26→22:24)
[2018-05-05] MEDS: Famotidine PF Inj 20 MG/2 ML Vial IV.PUSH SCH ×2 (08:08→20:01)
[2018-05-05] MEDS: Heparin - SQ 10,000 UNITS/ML Vial SQ SCH ×2 (08:11→20:01)
[2018-05-05] MEDS: Chlorhexidine 0.12% Oral Kit 15 ML UDC OROPHARYNG SCH ×2 (08:13→19:43)
[2018-05-05] MEDS: amLODIPine 5 MG Tablet PO SCH (08:13)
[2018-05-05] MEDS: Senna/Docusate Sodium 8.6/50 MG Tablet PO SCH ×2 (08:13→20:01)
--- NOTE | 2018-05-05 08:27 | P.PNCC ---
Subjective Subjective Remarks/Hospital Course: This is a 68-year-old female. Admission 04/30/2018. Date of consultation 05/03/2018. Past medical history includes non-Hodgkin's lymphoma in remission since 2008, history of CVA, underlying dementia disorder NOS, hypertension, hyperlipidemia, peripheral vascular disease with known right carotid stenosis, diabetes mellitus, gout, and a known right clavicle fracture. She has a right [id number] amputation from peripheral vascular disease. Patient presents to [facility] [place] 04/30 with recent admissions for catatonia state. Patient was treated under psychiatry to be medically cleared by family medicine practice with little improvement in her symptomatology. She presented here with elevated blood pressure and altered mental status. She received clonidine and hydralazine the results and was started on nicardipine drip and transferred to the intensive care unit. She is also on lisinopril which was discontinued recently. Her nicardipine drip is currently off. This morning, was notified by the RN patient had a swollen tongue and has had increasing oxygen requirements. Patient required emergent intubation with glide scope without complication. Most likely is introduced secondary to JACE inhibitor. Patient is currently on famotidine, diphenhydramine and received 1 dose of steroids. 05/04: Currently resting in bed in no acute distress. Tongue remains swollen. Replace potassium. Restarted on nicardipine drip overnight due to hypertension. Subjective 05/05: Remains on nicardipine drip at 5 mg an hour. Tongue remains less swollen today. Will diuresis with bumetanide x1. Does not appear to be any distress. Propofol is currently 50 sunita grams per kilogram per minute. Will lessen sedation today. Objective Vital Signs / I&O: Vital Signs 05/04/18 08:30 05/04/18 08:33 05/04/18 08:45 Temperature Pulse Rate 80 80 80 Respiratory Rate 14 14 14 Blood Pressure 142/66 H 135/56 L Pulse Oximetry 100 93 L 95 05/04/18 09:00 05/04/18 09:15 05/04/18 09:30 Temperature Pulse Rate 79 78 75 Respiratory Rate 14 14 14 Blood Pressure 131/62 130/60 129/62 Pulse Oximetry 100 100 100 05/04/18 10:00 05/04/18 10:06 05/04/18 10:15 Temperature Pulse Rate 75 73 Respiratory Rate 14 14 14 Blood Pressure 137/65 135/60 Pulse Oximetry 100 100 100 05/04/18 10:30 05/04/18 10:45 05/04/18 11:00 Temperature Pulse Rate 74 74 74 Respiratory Rate 14 14 14 Blood Pressure 139/65 137/60 134/64 Pulse Oximetry 100 100 100 05/04/18 11:15 05/04/18 11:30 05/04/18 11:41 Temperature Pulse Rate 74 73 75 Respiratory Rate 14 14 16 Blood Pressure 139/65 136/63 Pulse Oximetry 100 100 05/04/18 11:45 05/04/18 12:00 05/04/18 12:15 Temperature 99.5 F Pulse Rate 72 74 74 Respiratory Rate 14 14 14 Blood Pressure 134/57 L 121/60 125/58 L Pulse Oximetry 99 100 100 05/04/18 12:30 05/04/18 12:45 05/04/18 13:00 Temperature Pulse Rate 74 75 73 Respiratory Rate 14 14 14 Blood Pressure 117/58 L 114/55 L 112/59 L Pulse Oximetry 100 100 100 05/04/18 13:15 05/04/18 13:30 05/04/18 13:31 Temperature Pulse Rate 72 71 Respiratory Rate 14 14 14 Blood Pressure 114/59 L 111/59 L Pulse Oximetry 100 100 100 05/04/18 13:45 05/04/18 14:00 05/04/18 14:15 Temperature Pulse Rate 69 69 71 Respiratory Rate 14 14 14 Blood Pressure 116/58 L 116/56 L 112/56 L Pulse Oximetry 100 100 100 05/04/18 14:30 05/04/18 14:45 05/04/18 15:00 Temperature Pulse Rate 69 69 68 Respiratory Rate 14 14 14 Blood Pressure 111/57 L 109/58 L 110/58 L Pulse Oximetry 100 100 100 05/04/18 15:15 05/04/18 15:24 05/04/18 15:30 Temperature Pulse Rate 67 67 68 Respiratory Rate 14 14 14 Blood Pressure 111/56 L 119/58 L Pulse Oximetry 100 100 05/04/18 15:45 05/04/18 16:00 05/04/18 16:15 Temperature Pulse Rate 73 69 69 Respiratory Rate 14 14 14 Blood Pressure 130/68 121/59 L 127/62 Pulse Oximetry 100 100 100 05/04/18 16:30 05/04/18 16:45 05/04/18 16:49 Temperature Pulse Rate 68 67 Respiratory Rate 14 14 14 Blood Pressure 125/60 127/63 Pulse Oximetry 100 100 100 05/04/18 17:00 05/04/18 17:32 05/04/18 17:58 Temperature Pulse Rate 70 69 Respiratory Rate 14 14 Blood Pressure 137/63 Pulse Oximetry 100 97 99 05/04/18 18:00 05/04/18 18:30 05/04/18 19:00 Temperature Pulse Rate 68 68 67 Respiratory Rate 14 14 14 Blood Pressure 133/59 L 126/62 131/62 Pulse Oximetry 99 100 100 05/04/18 19:30 05/04/18 20:00 05/04/18 20:20 Temperature 98.8 F Pulse Rate 69 68 Respiratory Rate 14 14 14 Blood Pressure 131/63 122/60 Pulse Oximetry 99 99 100 05/04/18 20:27 05/04/18 20:30 05/04/18 21:00 Temperature Pulse Rate 68 68 71 Respiratory Rate 14 14 14 Blood Pressure 112/56 L 112/55 L Pulse Oximetry 99 99 05/04/18 21:30 05/04/18 22:00 05/04/18 22:30 Temperature Pulse Rate 70 68 67 Respiratory Rate 14 14 14 Blood Pressure 122/60 125/63 115/60 Pulse Oximetry 99 100 99 05/04/18 23:00 05/04/18 23:30 05/05/18 00:00 Temperature 99.3 F Pulse Rate 66 67 69 Respiratory Rate 14 14 14 Blood Pressure 118/59 L 120/61 122/65 Pulse Oximetry 99 99 98 05/05/18 00:10 05/05/18 00:19 05/05/18 00:30 Temperature Pulse Rate 68 69 Respiratory Rate 14 14 14 Blood Pressure 109/57 L Pulse Oximetry 98 05/05/18 01:00 05/05/18 01:30 05/05/18 01:56 Temperature Pulse Rate 69 68 68 Respiratory Rate 0 L 0 L Blood Pressure 107/55 L 113/59 L Pulse Oximetry 98 99 05/05/18 02:00 05/05/18 02:30 05/05/18 03:00 Temperature Pulse Rate 68 68 68 Respiratory Rate 0 L 5 L 11 L Blood Pressure 114/59 L 116/56 L 121/58 L Pulse Oximetry 98 98 100 05/05/18 03:30 05/05/18 03:55 05/05/18 04:00 Temperature 98.4 F Pulse Rate 67 69 69 Respiratory Rate 14 14 14 Blood Pressure 115/56 L 116/58 L Pulse Oximetry 96 97 05/05/18 04:10 05/05/18 06:00 05/05/18 08:16 Temperature Pulse Rate 69 73 Respiratory Rate 14 15 Blood Pressure Pulse Oximetry 97 98 Intake & Output 05/04/18 05/05/18 05/05/18 18:59 06:59 18:59 Intake Total 1886 / 1886 1280 / 1280 Output Total 900 / 900 Balance 986 / 986 1280 / 1280 Weight 69.8 kg Intake: IV 1600 / 1600 800 / 800 Diprivan 1000 mg/100 ml Inj 1, 200 / 200 200 / 200 000 mg In 100 ml @ 5 MCG/KG/MIN 1.95 mls/hr IV.CONT TITRATE PRN Rx#:[id number] 1/2 Normal Saline Inj 1,000 ML 600 / 600 @ 84 mls/hr IV.CONT .[id number] [facility] Rx#:[id number] Cardene Inj 25 MG In NS Inj 240 500 / 500 500 / 500 ML @ 5 MG/HR 50 mls/hr IV.CONT TITRATE PRN Rx#:[id number] KCl 20 mEq Premix Inj 20 meq In 200 / 200 100 ml @ 50 mls/hr IV.SIG Q2H PRN Rx#:[id number] Keppra 1000 mg/100 mL Premix 100 / 100 100 / 100 100 ML @ 400 mls/hr IV.SIG Q12H [facility] Rx#:[id number] Tube Feeding 286 / 286 360 / 360 Tube Irrigant 120 / 120 Output: Urine Amount (Catheter) 900 / 900 Straight 900 / 900 Other: # Voids 4 # Incontinent Voids 4 Date of Last Bowel Movement 05/04/18 05/05/18 05/05/18 # Bowel Movements 1 4 # Incontinent Bowel Movements 4 Result Diagrams: 05/05/18 05:21 05/05/18 05:21 Other Results: Microbiology 05/03/18 08:00 Sputum - Endotracheal Gram Stain - Final 05/03/18 08:00 Sputum - Endotracheal Sputum Culture - Preliminary Light growth normal respiratory maritza at 24 hours 12/27/18 11:30 Lumbar Puncture Gram Stain - Final 05/02/18 11:30 Lumbar Puncture CSF Culture - Preliminary No growth in 48 hours 05/02/18 11:30 Cerebral Spinal Fluid - Lumbar Puncture Acid Fast Bacilli Smear - Final No acid fast bacilli seen 05/02/18 11:30 Cerebral Spinal Fluid - Lumbar Puncture Fungal Smear - Final No fungal elements seen Imaging: Carotid Doppler Study 05/01/18 00:00 CONCLUSION: 1. Elevation of the peak systolic velocity of the left internal carotid artery suggesting 50-69% stenosis although the ICA/CCA ratio on the left suggests less than 50% stenosis. CTA of the carotids would be helpful to resolve these discordant findings. There is also elevation of the peak systolic velocity of the left external carotid artery in the 50-69% stenosis range. 2. Less than 50% stenosis involving the right internal carotid artery. 3. Moderate atherosclerotic plaque formation within the carotid bulbs and proximal internal carotid arteries. Head MRI 05/01/18 19:26 There is vasogenic edema seen involving the posterior aspects of the parietal lobes as well as the occipital lobes bilaterally. This is similar to the prior examination. Periventricular high FLAIR signal abnormality also noted involving both cerebral hemispheres but most pronounced within the parietal lobes. This is unchanged. A small lacunar infarction involving the left abraham radiata. No hemorrhage. No acute infarction. Normal flow voids within the major intracranial vessels. Ventricles are normal in size. Orbital structures are normal. No abnormal enhancement following gadolinium. Mucosal thickening without air-fluid levels involving anterior ethmoid air cells on the right. Remaining paranasal sinuses are clear. Fluid signal seen within the mastoid air cells bilaterally but more pronounced on the left. CONCLUSION: 1. Study degraded by motion artifact. 2. Vasogenic edema involving the parietal and occipital lobes bilaterally is stable. Although not specific for this could relate to posterior reversible encephalopathy syndrome (PRES). 3. Atrophy. 4. Chronic small vessel ischemic change. Lumbar Puncture Fluoroscopy 05/02/18 00:00 CONCLUSION: 1. Uncomplicated fluoroscopically guided lumbar puncture. Abdomen/Pelvis CT 05/03/18 00:00 CONCLUSION: 1. Questionable mass within the body of the pancreas measuring 1.7 x 2.6 cm. MRI of the abdomen with contrast may be helpful for further characterization of this questionable mass if clinically indicated. 2. Gallbladder wall is mildly thickened. If there is clinical concern for acute cholecystitis, a hepatobiliary scan may be helpful to confirm cystic duct obstruction. 3. Liver is enlarged and appears somewhat nodular in contour raising the possibility of cirrhosis. No focal mass is noted. 4. Small bilateral pleural effusions with adjacent alveolar consolidations are noted. 5. Tiny pericardial effusion. 6. Minimal ascites. 7. 11 mm calcified fibroid within the uterus. 8. Degenerative changes and scoliosis of the thoracolumbar spine. Chest CT 05/03/18 00:00 CONCLUSION: 1. Small bilateral pleural effusions. 2. Posterior bibasilar alveolar consolidations consistent with compressive atelectasis and/or pneumonia. Clinical correlation is recommended. 3. Tiny pericardial effusion. 4. Cardiomegaly and coronary artery calcifications. 5. No pulmonary nodule, mass or lymphadenopathy. 6. Scoliosis and degenerative changes involving the thoracic spine. Chest X-Ray 05/03/18 07:08 CONCLUSION: 1. Improved position of the endotracheal tube which is now 3 cm above the tim. 2. Scattered bibasilar atelectasis. 3. Degenerative changes and scoliosis of the thoracic spine. Chest X-Ray 05/03/18 07:09 CONCLUSION: 1. Endotracheal tube is low in position at the level of the tim and directed towards the right mainstem bronchus. This should be pulled back 3 cm for more optimal positioning. 2. Scattered atelectatic changes bilaterally. 3. Degenerative changes and scoliosis of the thoracic spine. Abdomen MRI 05/04/18 00:00 CONCLUSION: 1. No pancreatic mass identified on MRI. 2. Bilateral pleural effusions. Moderate anasarca. Mild ascites. Chest X-Ray 05/05/18 06:00 CONCLUSION: Worsening mild consolidation and small pleural effusions at each base. New nasogastric tube coursing into the stomach, tip not included on the study. Endotracheal tube tip is about 2 cm above the tim. Objective Remarks: GENERAL: This is a 68-year-old female currently orotracheally intubated SKIN: Warm and dry. HEAD: Atraumatic. Normocephalic. EYES: Pupils equal and round around 3 mm bilaterally and reactive. No scleral icterus. No injection or drainage. ENT: No nasal bleeding or discharge. Mucous membranes pink and moist. Tongue less edematous and swollen NECK: Trachea midline. No JVD. CARDIOVASCULAR: Regular rate and rhythm. S1, S2. No S4. RESPIRATORY: No accessory muscle use. Clear to auscultation. Breath sounds equal bilaterally. GASTROINTESTINAL: Abdomen soft, non-tender, obese. Hepatic and splenic margins not palpable. MUSCULOSKELETAL: Extremities trace bilateral lower extremity edema. No obvious deformities. NEUROLOGICAL: Sedated on propofol drips. Positive cough and gag. Positive corneal reflex. Withdraws to pain. Assessment and Plan - Assessment and Plan Plan: Neuro/Psych: Acute encephalopathy Possible PRES History of CVA Seizure disorder NOS [place] MRI brain revealed vasogenic edema in the bilateral posterior occipital lobes. Possible differential includes PRES Evaluate Dr. Mehta/neurology. Continue aspirin 81 mg daily. Goal blood pressure between 110 120 systolic. Lumbar puncture 05/02 unremarkable Remains on levetiracetam 1000 mg twice daily for seizures Depression medication escitalopram 20 mg daily Hold gabapentin 60o mg twice daily Family medicine has patient scheduled lorazepam 1 mg every 6 hours Currently on propofol drip at 50 sunita grams per kilogram per minute for sedation while intubated Goal of RA SS -2 Daily sedation vacation starting today CV: Hypertensive emergency Hyper lipedema Peripheral vascular disease Noted 2D echocardiogram 05/01 revealed EF around 55-60 history no regional response. Small pericardial effusion. Goal keep systolic blood pressure around 110-120 per neurology's recommendations Previously on hydralazine, clonidine scheduled. As needed hydralazine, Nitropaste and labetalol Start amlodipine 5 mg daily Nicardipine drip currently resume. On 5 mg an hour Continue atorvastatin 20 mg daily Carotid Dopplers revealed left stenosis 50-69%. Right less than 50%. Resp: Acute respiratory failure secondary angioedema [facility] 14/500/1./ Ventilator bundle Albuterol/ipratropium aerosols every 4 hours with albuterol every 2 as needed dyspnea No spontaneous breathing trials until angioedema resolving Follow-up on post intubation chest x-ray and ABG Currently on scheduled diphenhydramine 50 mg IV every 6 hours stop date 05/04, famotidine 20 mg IV twice daily and received 1 dose of methylprednisolone succinate 125 mg x1 GI: Start tube feeding today after MRI abdomen. Glucerna 1.5 goal 60 cc an hour. Noted CT abdomen/pelvis revealed pancreatic mass. Will check MRI no pancreatic mass. Noted normal CA 19/9, CEA and CA 125 NG tube to low intermittent wall suction currently Famotidine for GI prophylaxis Docusate serum/senna 1 tablet twice daily for bowel regimen : Currently with [place] catheter. Endo: Diabetes mellitus type 2 Gout Sliding scale insulin with aspart insulin every 6 hours low regimen Accu-Cheks to maintain euglycemia TSH 0.5-4 Holding metformin and glimepiride. Renal: Creatinine currently within normal limits Monitor urine output Acute I's and O's Heme: Leukocytosis Monitor CBC daily. Follow trends. No indication for transfusion of blood products at this time ID: Check sputum no growth to date Monitor for signs of hematology infection FEN: Acute hypokalemia -resolved Replace electrolytes as clinically indicated per ICU electrolyte protocol Currently on normal saline with 20 mEq of potassium chloride 100 cc an hour discontinued 05/05 MSK: Right [id number] amputation PT/OT evaluate and treat Access -Utilize peripheral IV. Central line if indicated Prophylaxis -GI -famotidine -DVT -SCD/heparin subcu Level 3 follow-up Code Status: Full code
--- NOTE | 2018-05-05 08:28 | P.PNFP ---
Subjective Interval history: 68 yo female with dementia, DM, HTN admitted for hypertension related to catatonia (due likely to depression). On Sunday morning (05/03/2018) she had respiratory distress and severe tongue swelling. Critical care was consulted and intubated her for likely angioedema. This morning, she is still intubated and unable to provide history. Overnight RN reports no events except copious amounts of diarrheal stools. She remains sedated with propofol and is on the nicardipine drip. Her blood pressures have been at goal with systolic BP less than 120 overnight. <Eko JahJanel U - 05/05/18 08:44> Results - Labs Result diagrams: 05/06/18 08:52 05/06/18 05:49 <Roxanna Magana - 05/06/18 12:17> Abnormal lab results 05/05/18 05/05/18 05/06/18 Range/Units 17:50 23:45 05:49 RBC (4.00-5.30) mil/mm3 [place] % (Auto) (0.0-8.0) % Eos % (Auto) (0.0-4.0) % [place] # (Auto) (0.0-0.9) th/mm3 Eos # (Auto) (0.0-0.4) th/mm3 Chloride 114 H (98-107) meq/L Carbon Dioxide 19.4 L (21.0-32.0) meq/L BUN 22 H (7-18) mg/dL Estimated GFR 62 L (>89) mL/min POC Glucose 152 H 147 H (68-110) mg/dl Random Glucose 185 H (74-106) mg/dL Calcium 7.7 L (8.5-10.1) mg/dL Total Protein 5.7 L (6.4-8.2) g/dL Albumin 2.4 L (3.4-5.0) g/dL 05/06/18 05/06/18 05/06/18 Range/Units 06:13 08:52 11:14 RBC 3.80 L (4.00-5.30) mil/mm3 [place] % (Auto) 10.0 H (0.0-8.0) % Eos % (Auto) 4.4 H (0.0-4.0) % [place] # (Auto) 1.1 H (0.0-0.9) th/mm3 Eos # (Auto) 0.5 H (0.0-0.4) th/mm3 Chloride (98-107) meq/L Carbon Dioxide (21.0-32.0) meq/L BUN (7-18) mg/dL Estimated GFR (>89) mL/min POC Glucose 205 H 163 H (68-110) mg/dl Random Glucose (74-106) mg/dL Calcium (8.5-10.1) mg/dL Total Protein (6.4-8.2) g/dL Albumin (3.4-5.0) g/dL Short CBC 05/06/18 Range/Units 08:52 WBC 10.7 (4.0-11.0) th/mm3 Hgb 11.9 (11.6-15.3) gm/dL Hct 35.8 (35.0-46.0) % Plt Count 304 (150-450) th/mm3 BMP 05/06/18 05:49 Sodium 144 Potassium 3.7 Chloride 114 H Carbon Dioxide 19.4 L BUN 22 H Creatinine 0.91 Calcium 7.7 L Liver Function 05/06/18 Range/Units 05:49 Total Bilirubin 0.3 (0.2-1.0) mg/dL AST 19 (15-37) U/L ALT 12 (10-53) U/L Alkaline Phosphatase 76 (45-117) U/L Albumin 2.4 L (3.4-5.0) g/dL <Roxanna Magana - 05/06/18 12:17> Abnormal lab results 05/04/18 05/04/18 05/04/18 Range/Units 11:39 18:09 23:56 WBC (4.0-11.0) th/mm3 [place] % (Auto) (0.0-8.0) % [place] # (Auto) (0.0-0.9) th/mm3 Chloride (98-107) meq/L Carbon Dioxide (21.0-32.0) meq/L BUN (7-18) mg/dL Estimated GFR (>89) mL/min POC Glucose 238 H 204 H 238 H (68-110) mg/dl Random Glucose (74-106) mg/dL Calcium (8.5-10.1) mg/dL Total Protein (6.4-8.2) g/dL Albumin (3.4-5.0) g/dL 05/05/18 05/05/18 05/05/18 Range/Units 05:21 05:21 05:41 WBC 11.5 H (4.0-11.0) th/mm3 [place] % (Auto) 10.4 H (0.0-8.0) % [place] # (Auto) 1.2 H (0.0-0.9) th/mm3 Chloride 113 H (98-107) meq/L Carbon Dioxide 18.0 L (21.0-32.0) meq/L BUN 23 H (7-18) mg/dL Estimated GFR 63 L (>89) mL/min POC Glucose 145 H (68-110) mg/dl Random Glucose 145 H D (74-106) mg/dL Calcium 7.7 L (8.5-10.1) mg/dL Total Protein 5.3 L (6.4-8.2) g/dL Albumin 2.3 L (3.4-5.0) g/dL Short CBC 05/05/18 Range/Units 05:21 WBC 11.5 H (4.0-11.0) th/mm3 Hgb 12.7 (11.6-15.3) gm/dL Hct 38.0 (35.0-46.0) % Plt Count 316 (150-450) th/mm3 [facility] 05/04/18 05/05/18 20:06 05:21 Sodium 142 Potassium 4.1 4.0 Chloride 113 H Carbon Dioxide 18.0 L BUN 23 H Creatinine 0.90 Calcium 7.7 L Liver Function 05/05/18 Range/Units 05:21 Total Bilirubin 0.3 (0.2-1.0) mg/dL AST 21 (15-37) U/L ALT 12 (10-53) U/L Alkaline Phosphatase 67 (45-117) U/L Albumin 2.3 L (3.4-5.0) g/dL <Eko R3,Janel U - 05/05/18 08:28> - Imaging Impressions Chest X-Ray 05/06/18 06:00 CONCLUSION: Bibasilar areas of consolidation or atelectasis being worse on the left. Some degree of a left effusion can be considered. <Roxanna Magana M - 05/06/18 12:17> Impressions Abdomen MRI 05/04/18 00:00 CONCLUSION: 1. No pancreatic mass identified on MRI. 2. Bilateral pleural effusions. Moderate anasarca. Mild ascites. Chest X-Ray 05/05/18 06:00 CONCLUSION: Worsening mild consolidation and small pleural effusions at each base. New nasogastric tube coursing into the stomach, tip not included on the study. Endotracheal tube tip is about 2 cm above the tim. <Eko R3,Janel U - 05/05/18 08:28> Physical Exam Vital signs: Vital Signs 05/05/18 12:30 05/05/18 13:00 05/05/18 13:30 Temperature Pulse Rate 76 76 74 Respiratory Rate 14 14 14 Blood Pressure 114/58 L 120/60 111/56 L Pulse Oximetry 100 100 100 05/05/18 14:00 05/05/18 14:30 05/05/18 15:00 Temperature Pulse Rate 74 73 71 Respiratory Rate 14 14 14 Blood Pressure 111/55 L 99/52 L 106/53 L Pulse Oximetry 100 100 100 05/05/18 15:30 05/05/18 15:41 05/05/18 16:00 Temperature 100 F H Pulse Rate 72 74 74 Respiratory Rate 19 19 17 Blood Pressure 106/53 L 128/60 116/58 L Pulse Oximetry 100 99 05/05/18 16:30 05/05/18 17:00 05/05/18 17:10 Temperature Pulse Rate 74 78 77 Respiratory Rate 15 17 16 Blood Pressure 134/61 141/65 H 137/63 Pulse Oximetry 100 100 100 05/05/18 17:30 05/05/18 17:48 05/05/18 17:56 Temperature Pulse Rate 78 79 78 Respiratory Rate 16 17 15 Blood Pressure 144/63 H 141/63 H 125/57 L Pulse Oximetry 99 99 99 05/05/18 18:00 05/05/18 18:15 05/05/18 18:30 Temperature Pulse Rate 78 78 77 Respiratory Rate 16 15 16 Blood Pressure 125/59 L 123/57 L 125/60 Pulse Oximetry 99 99 99 05/05/18 18:45 05/05/18 19:00 05/05/18 19:19 Temperature Pulse Rate 78 78 77 Respiratory Rate 16 16 16 Blood Pressure 124/60 130/60 125/59 L Pulse Oximetry 100 100 100 05/05/18 19:30 05/05/18 19:45 05/05/18 20:00 Temperature 98.9 F Pulse Rate 80 81 80 Respiratory Rate 14 18 15 Blood Pressure 130/63 132/63 120/58 L Pulse Oximetry 99 99 97 05/05/18 20:08 05/05/18 20:15 05/05/18 20:30 Temperature Pulse Rate 79 76 77 Respiratory Rate 16 16 17 Blood Pressure 129/60 117/59 L 102/59 L Pulse Oximetry 98 97 97 05/05/18 20:42 05/05/18 20:45 05/05/18 21:00 Temperature Pulse Rate 77 78 80 Respiratory Rate 15 17 14 Blood Pressure 112/59 L 119/56 L Pulse Oximetry 97 97 97 05/05/18 21:15 05/05/18 21:30 05/05/18 21:45 Temperature Pulse Rate 81 84 83 Respiratory Rate 15 14 15 Blood Pressure 123/59 L 121/58 L 118/58 L Pulse Oximetry 97 97 97 05/05/18 22:00 05/05/18 22:15 05/05/18 22:30 Temperature Pulse Rate 80 80 81 Respiratory Rate 15 14 14 Blood Pressure 121/58 L 117/57 L 123/59 L Pulse Oximetry 97 97 97 05/05/18 22:45 05/05/18 23:00 05/05/18 23:15 Temperature Pulse Rate 80 79 79 Respiratory Rate 15 14 14 Blood Pressure 116/56 L 114/56 L 127/60 Pulse Oximetry 98 98 99 05/05/18 23:30 05/05/18 23:45 05/06/18 00:00 Temperature 99.4 F Pulse Rate 79 79 79 Respiratory Rate 15 28 H 16 Blood Pressure 117/56 L 119/58 L 118/58 L Pulse Oximetry 97 98 97 05/06/18 00:15 05/06/18 00:30 05/06/18 00:41 Temperature Pulse Rate 77 76 77 Respiratory Rate 20 14 14 Blood Pressure 118/56 L 116/55 L Pulse Oximetry 97 96 96 05/06/18 00:45 05/06/18 01:00 05/06/18 01:15 Temperature Pulse Rate 77 78 79 Respiratory Rate 18 14 14 Blood Pressure 114/56 L 106/54 L 107/53 L Pulse Oximetry 96 96 96 05/06/18 01:30 05/06/18 01:45 05/06/18 02:00 Temperature Pulse Rate 81 81 82 Respiratory Rate 14 14 14 Blood Pressure 115/59 L 114/58 L 116/59 L Pulse Oximetry 96 95 95 05/06/18 02:15 05/06/18 02:30 05/06/18 02:45 Temperature Pulse Rate 82 82 83 Respiratory Rate 14 14 14 Blood Pressure 116/57 L 115/57 L 115/57 L Pulse Oximetry 95 95 95 05/06/18 03:00 05/06/18 03:15 05/06/18 03:30 Temperature Pulse Rate 79 78 77 Respiratory Rate 14 14 14 Blood Pressure 111/55 L 111/54 L 101/50 L Pulse Oximetry 94 L 94 L 95 05/06/18 03:45 05/06/18 04:00 05/06/18 04:10 Temperature 98.8 F Pulse Rate 77 78 78 Respiratory Rate 14 14 14 Blood Pressure 111/56 L 114/57 L Pulse Oximetry 94 L 94 L 95 05/06/18 04:15 05/06/18 04:30 05/06/18 04:45 Temperature Pulse Rate 77 78 81 Respiratory Rate 14 14 6 L Blood Pressure 120/59 L 108/55 L 117/59 L Pulse Oximetry 96 94 L 95 05/06/18 05:00 05/06/18 05:15 05/06/18 05:30 Temperature Pulse Rate 82 78 77 Respiratory Rate 6 L 14 14 Blood Pressure 121/57 L 121/60 131/61 Pulse Oximetry 95 98 99 05/06/18 05:45 05/06/18 06:00 05/06/18 06:15 Temperature Pulse Rate 77 76 75 Respiratory Rate 14 14 14 Blood Pressure 118/60 116/55 L 120/58 L Pulse Oximetry 98 96 97 05/06/18 06:30 05/06/18 06:45 05/06/18 07:00 Temperature Pulse Rate 77 75 75 Respiratory Rate 14 14 14 Blood Pressure 125/60 118/56 L 115/56 L Pulse Oximetry 98 96 96 05/06/18 07:15 05/06/18 07:30 05/06/18 07:45 Temperature Pulse Rate 74 75 74 Respiratory Rate 14 14 14 Blood Pressure 123/59 L 121/59 L 121/57 L Pulse Oximetry 97 95 96 05/06/18 08:00 05/06/18 08:04 05/06/18 08:08 Temperature 98.8 F Pulse Rate 75 75 Respiratory Rate 14 14 14 Blood Pressure 116/58 L Pulse Oximetry 96 94 L 05/06/18 08:15 05/06/18 08:30 05/06/18 08:45 Temperature Pulse Rate 74 77 82 Respiratory Rate 14 17 27 H Blood Pressure 115/56 L 95/54 L 143/66 H Pulse Oximetry 95 96 95 05/06/18 09:00 05/06/18 09:15 05/06/18 09:30 Temperature Pulse Rate 87 92 H 91 H Respiratory Rate 27 H 34 H 14 Blood Pressure 139/65 137/65 133/63 Pulse Oximetry 95 95 96 05/06/18 09:45 05/06/18 09:55 05/06/18 10:00 Temperature Pulse Rate 88 88 89 Respiratory Rate 14 14 14 Blood Pressure 129/60 122/57 L 128/63 Pulse Oximetry 95 95 96 05/06/18 10:15 05/06/18 10:30 05/06/18 10:58 Temperature Pulse Rate 92 H 102 H 97 H Respiratory Rate 30 H 31 H 30 H Blood Pressure 137/66 139/70 Pulse Oximetry 95 95 05/06/18 10:59 Temperature Pulse Rate Respiratory Rate 28 H Blood Pressure Pulse Oximetry Intake & Output 05/05/18 05/06/18 05/06/18 18:59 06:59 18:59 Intake Total 1287 / 1287 2070 / 2070 250 / 250 Output Total 1010 / 1010 800 / 800 Balance 277 / 277 1270 / 1270 250 / 250 Weight 69.9 kg Intake: IV 800 / 800 1400 / 1400 250 / 250 Diprivan 1000 mg/100 ml Inj 1, 200 / 200 300 / 300 000 mg In 100 ml @ 5 MCG/KG/MIN 1.95 mls/hr IV.CONT TITRATE PRN Rx#:[id number] Cardene Inj 25 MG In NS Inj 240 500 / 500 1000 / 1000 250 / 250 ML @ 5 MG/HR 50 mls/hr IV.CONT TITRATE PRN Rx#:[id number] Keppra 1000 mg/100 mL Premix 100 / 100 100 / 100 100 ML @ 400 mls/hr IV.SIG Q12H [facility] Rx#:[id number] Tube Feeding 487 / 487 550 / 550 Tube Irrigant 120 / 120 Output: Urine 710 / 710 800 / 800 Stool 300 / 300 Other: # Voids 6 # Incontinent Voids 2 6 Date of Last Bowel Movement 05/05/18 05/06/18 05/06/18 # Incontinent Bowel Movements 2 <Roxanna Magana M - 05/06/18 12:17> Vital Signs 05/04/18 08:30 05/04/18 08:33 05/04/18 08:45 Temperature Pulse Rate 80 80 80 Respiratory Rate 14 14 14 Blood Pressure 142/66 H 135/56 L Pulse Oximetry 100 93 L 95 05/04/18 09:00 05/04/18 09:15 05/04/18 09:30 Temperature Pulse Rate 79 78 75 Respiratory Rate 14 14 14 Blood Pressure 131/62 130/60 129/62 Pulse Oximetry 100 100 100 05/04/18 10:00 05/04/18 10:06 05/04/18 10:15 Temperature Pulse Rate 75 73 Respiratory Rate 14 14 14 Blood Pressure 137/65 135/60 Pulse Oximetry 100 100 100 05/04/18 10:30 05/04/18 10:45 05/04/18 11:00 Temperature Pulse Rate 74 74 74 Respiratory Rate 14 14 14 Blood Pressure 139/65 137/60 134/64 Pulse Oximetry 100 100 100 05/04/18 11:15 05/04/18 11:30 05/04/18 11:41 Temperature Pulse Rate 74 73 75 Respiratory Rate 14 14 16 Blood Pressure 139/65 136/63 Pulse Oximetry 100 100 05/04/18 11:45 05/04/18 12:00 05/04/18 12:15 Temperature 99.5 F Pulse Rate 72 74 74 Respiratory Rate 14 14 14 Blood Pressure 134/57 L 121/60 125/58 L Pulse Oximetry 99 100 100 05/04/18 12:30 05/04/18 12:45 05/04/18 13:00 Temperature Pulse Rate 74 75 73 Respiratory Rate 14 14 14 Blood Pressure 117/58 L 114/55 L 112/59 L Pulse Oximetry 100 100 100 05/04/18 13:15 05/04/18 13:30 05/04/18 13:31 Temperature Pulse Rate 72 71 Respiratory Rate 14 14 14 Blood Pressure 114/59 L 111/59 L Pulse Oximetry 100 100 100 05/04/18 13:45 05/04/18 14:00 05/04/18 14:15 Temperature Pulse Rate 69 69 71 Respiratory Rate 14 14 14 Blood Pressure 116/58 L 116/56 L 112/56 L Pulse Oximetry 100 100 100 05/04/18 14:30 05/04/18 14:45 05/04/18 15:00 Temperature Pulse Rate 69 69 68 Respiratory Rate 14 14 14 Blood Pressure 111/57 L 109/58 L 110/58 L Pulse Oximetry 100 100 100 05/04/18 15:15 05/04/18 15:24 05/04/18 15:30 Temperature Pulse Rate 67 67 68 Respiratory Rate 14 14 14 Blood Pressure 111/56 L 119/58 L Pulse Oximetry 100 100 05/04/18 15:45 05/04/18 16:00 05/04/18 16:15 Temperature Pulse Rate 73 69 69 Respiratory Rate 14 14 14 Blood Pressure 130/68 121/59 L 127/62 Pulse Oximetry 100 100 100 05/04/18 16:30 05/04/18 16:45 05/04/18 16:49 Temperature Pulse Rate 68 67 Respiratory Rate 14 14 14 Blood Pressure 125/60 127/63 Pulse Oximetry 100 100 100 05/04/18 17:00 05/04/18 17:32 05/04/18 17:58 Temperature Pulse Rate 70 69 Respiratory Rate 14 14 Blood Pressure 137/63 Pulse Oximetry 100 97 99 05/04/18 18:00 05/04/18 18:30 05/04/18 19:00 Temperature Pulse Rate 68 68 67 Respiratory Rate 14 14 14 Blood Pressure 133/59 L 126/62 131/62 Pulse Oximetry 99 100 100 05/04/18 19:30 05/04/18 20:00 05/04/18 20:20 Temperature 98.8 F Pulse Rate 69 68 Respiratory Rate 14 14 14 Blood Pressure 131/63 122/60 Pulse Oximetry 99 99 100 05/04/18 20:27 05/04/18 20:30 05/04/18 21:00 Temperature Pulse Rate 68 68 71 Respiratory Rate 14 14 14 Blood Pressure 112/56 L 112/55 L Pulse Oximetry 99 99 05/04/18 21:30 05/04/18 22:00 05/04/18 22:30 Temperature Pulse Rate 70 68 67 Respiratory Rate 14 14 14 Blood Pressure 122/60 125/63 115/60 Pulse Oximetry 99 100 99 05/04/18 23:00 05/04/18 23:30 05/05/18 00:00 Temperature 99.3 F Pulse Rate 66 67 69 Respiratory Rate 14 14 14 Blood Pressure 118/59 L 120/61 122/65 Pulse Oximetry 99 99 98 05/05/18 00:10 05/05/18 00:19 05/05/18 00:30 Temperature Pulse Rate 68 69 Respiratory Rate 14 14 14 Blood Pressure 109/57 L Pulse Oximetry 98 05/05/18 01:00 05/05/18 01:30 05/05/18 01:56 Temperature Pulse Rate 69 68 68 Respiratory Rate 0 L 0 L Blood Pressure 107/55 L 113/59 L Pulse Oximetry 98 99 05/05/18 02:00 05/05/18 02:30 05/05/18 03:00 Temperature Pulse Rate 68 68 68 Respiratory Rate 0 L 5 L 11 L Blood Pressure 114/59 L 116/56 L 121/58 L Pulse Oximetry 98 98 100 05/05/18 03:30 05/05/18 03:55 05/05/18 04:00 Temperature 98.4 F Pulse Rate 67 69 69 Respiratory Rate 14 14 14 Blood Pressure 115/56 L 116/58 L Pulse Oximetry 96 97 05/05/18 04:10 05/05/18 06:00 05/05/18 08:16 Temperature Pulse Rate 69 73 Respiratory Rate 14 15 Blood Pressure Pulse Oximetry 97 98 Intake & Output 05/04/18 05/05/18 05/05/18 18:59 06:59 18:59 Intake Total 1886 / 1886 1280 / 1280 Output Total 900 / 900 Balance 986 / 986 1280 / 1280 Weight 69.8 kg Intake: IV 1600 / 1600 800 / 800 Diprivan 1000 mg/100 ml Inj 1, 200 / 200 200 / 200 000 mg In 100 ml @ 5 MCG/KG/MIN 1.95 mls/hr IV.CONT TITRATE PRN Rx#:[id number] 1/2 Normal Saline Inj 1,000 ML 600 / 600 @ 84 mls/hr IV.CONT .[id number] [facility] Rx#:[id number] Cardene Inj 25 MG In NS Inj 240 500 / 500 500 / 500 ML @ 5 MG/HR 50 mls/hr IV.CONT TITRATE PRN Rx#:[id number] KCl 20 mEq Premix Inj 20 meq In 200 / 200 100 ml @ 50 mls/hr IV.SIG Q2H PRN Rx#:[id number] Keppra 1000 mg/100 mL Premix 100 / 100 100 / 100 100 ML @ 400 mls/hr IV.SIG Q12H [facility] Rx#:[id number] Tube Feeding 286 / 286 360 / 360 Tube Irrigant 120 / 120 Output: Urine Amount (Catheter) 900 / 900 Straight 900 / 900 Other: # Voids 4 # Incontinent Voids 4 Date of Last Bowel Movement 05/04/18 05/05/18 05/05/18 # Bowel Movements 1 4 # Incontinent Bowel Movements 4 <Eko R3,Janel U - 05/05/18 08:41> Narrative: Patient is intubated and sedated HEENT: Atraumatic. Normocephalic. REGIS, Obvious swelling of tongue and lips but less than the previous day Neck: Supple CV: RRR Lungs: No accessory muscle use, CTAB ABd. Soft, BKA stump moves when the middle of her abdomen is palpated Ext: Mild LE edema <Eko R3,Janel U - 05/05/18 08:41> - Urinary Catheter Management Straight Cath placed during this visit: no <Roxanna Magana M - 05/06/18 12:17> no <Eko R3,Janel U - 05/05/18 09:31> Assessment and Plan - Assessment (1) Acute respiratory failure Code(s): J96.00 - Acute respiratory failure, unspecified whether with hypoxia or hypercapnia Status: Acute (2) Angioedema Code(s): T78.3XXA - Angioneurotic edema, initial encounter Status: Acute (3) Catatonia associated with another mental disorder Code(s): F06.1 - Catatonic disorder due to known physiological condition Status: Acute (4) PRES (posterior reversible encephalopathy syndrome) Code(s): I67.83 - Posterior reversible encephalopathy syndrome Status: Acute (5) HTN (hypertension) Code(s): I10 - Essential (primary) hypertension Status: Acute (6) Seizures Code(s): R56.9 - Unspecified convulsions Status: Acute (7) Hyperlipidemia Code(s): E78.5 - Hyperlipidemia, unspecified Status: Chronic (8) Diabetes Code(s): E11.9 - Type 2 diabetes mellitus without complications Status: Chronic (9) Diarrhea Code(s): R19.7 - Diarrhea, unspecified Status: Acute (10) Clavicle fracture Code(s): S42.009A - Fracture of unspecified part of unspecified clavicle, initial encounter for closed fracture Status: Acute (11) Nutrition, metabolism, and development symptoms Code(s): R63.8 - Other symptoms and signs concerning food and fluid intake Status: Acute <Roxanna Magana M - 05/06/18 12:17> (1) Acute respiratory failure Code(s): J96.00 - Acute respiratory failure, unspecified whether with hypoxia or hypercapnia Status: Acute (2) Angioedema Code(s): T78.3XXA - Angioneurotic edema, initial encounter Status: Acute (3) Catatonia associated with another mental disorder Code(s): F06.1 - Catatonic disorder due to known physiological condition Status: Acute (4) PRES (posterior reversible encephalopathy syndrome) Code(s): I67.83 - Posterior reversible encephalopathy syndrome Status: Acute (5) HTN (hypertension) Code(s): I10 - Essential (primary) hypertension Status: Acute (6) Seizures Code(s): R56.9 - Unspecified convulsions Status: Acute (7) Hyperlipidemia Code(s): E78.5 - Hyperlipidemia, unspecified Status: Chronic (8) Diabetes Code(s): E11.9 - Type 2 diabetes mellitus without complications Status: Chronic (9) Diarrhea Code(s): R19.7 - Diarrhea, unspecified Status: Acute (10) Clavicle fracture Code(s): S42.009A - Fracture of unspecified part of unspecified clavicle, initial encounter for closed fracture Status: Acute (11) Nutrition, metabolism, and development symptoms Code(s): R63.8 - Other symptoms and signs concerning food and fluid intake Status: Acute <Awaiso Janel Tyson U - 05/05/18 09:31> - Assessment and Plan 68 yo female with dementia, HTN, DM admitted with: Catatonia Medical work-up has been negative except for PRES. Given that her altered mental status preceded her hypertension it is likely that the root cause of her altered mental state is catatonia. She does have a component of PRES by MRI but this is most likely due to hypertension caused by catatonia rather than primary hypertension leading to encephalopathy. CBC and CK within normal limits; no signs of NMS ABG essentially normal Ammonia very slightly elevated, unlikely to be etiology of her mental status LATONYA screen positive, titer pending RF negative RPR negative ESR normal * Continue Lexapro and Seroquel * Ativan stopped due to hypotension, respiratory failure from angioedema * Discussed case with psychiatry Dr. Acosta, appreciate assistance * Only treatment likely to improve her depression/catatonia is ECT - Dr. Acosta to discuss with community case manager to make arrangements to transfer her to a facility that performs ECT. She is not stable for transfer at the moment. * CT abdomen/pelvis revealed pancreatic mass. Will check MRI today per radiology recommendations * Normal CA 19/9, CEA and CA 125 * Manage hypertension as noted below Acute Respiratory Failure due to angioedema Now intubated: PEEP 5, RR 14, TV 500, FIO2 35% * CCM consulted, appreciate assistance * diphenhydramine 50 mg IV every 6 hours, famotidine 20 mg IV twice daily * Duonebs Q4H * Diurese with Bumetanide x1 today * Reduce sedation PRES MRI findings suggestive of PRES * Neurology following, appreciate assistance * Control BP as below Hypertension BP still intermittently elevated likely related to catatonia Difficulty taking PO meds due to fluctuating mental status * Due to PRES needs tighter BP control per neurology: goal SBP 110-120 * Continue nicardipine drip titrated to target BP < 120/90 * Amlodipine 5mg added this am by nephrology * Hydralazine, Nitropaste and labetalol as needed * Consulted nephrology to assist with other secondary causes of HTN, though most likely etiology still catatonia Seizure Disorder Now with possible repeat seizure vs (more likely) catalepsy from catatonia EEG with nonspecific encephalopathy MRI/MRA unremarkable except for PRES as noted LP performed 05/02/18 - chemistries / cultures normal so far * Neurology on board, appreciate assistance * Continue Keppra to 1000 mg IV BID * Control BP as part of PRES management * Treat catatonia as above Diabetes mellitus BG at hospital goal now * Check sugar Q6H now that she is on continuous tube feedings * Holding metformin for now * Low dose SSI Hyperlipidemia * Continue home atorvastatin Diarrhea * Overnight nurse reports copious amounts of diarrheal stools * Most likely normal due to tube feeds and patient being NPO before tube feeds were initiated * Will check C diff considering prolonged hospital stay Right [id number] amputation PT/OT evaluate and treat Fluids: IV NS + 20 mEq/L KCl at 100 CC/HR Diet: Pureed as tolerated, Ensure shakes/pudding ad aisha for caloric support * Nutritional status has been poor for last > 1 week, not eating much * Consulted cash applications analyst, appreciate recs * Glucerna 1.5 @ 60 mL/hr GI: Famotidine Docusate serum/senna 1 tablet twice daily for bowel regimen DVT: Heparin BID ICU electrolyte replacement protocol <Janel Whitt - 05/05/18 08:44> Discussed Condition With: Pt's nurse, Attending - Dr. Magana <Janel Whitt - 05/05/18 08:44> Discharge Planning: Pending clinical improvement <Janel Whitt - 05/05/18 08:44> - Attending Attestation The exam, history, and the medical decision-making described in the above note were completed with the assistance of the resident physician. I reviewed and agree with the findings presented. I attest that I had a [id number] encounter with the patient on the same day, and personally performed and documented my assessment and findings in the medical record. her tongue and presumably throat is still swollen. she should be able to be extubated once her swelling decreases <Roxanna Magana M - 05/06/18 12:17> <Janel Whitt U - Last Filed: 05/05/18 09:31> (2) Angioedema Qualifiers: Encounter type: initial encounter Qualified Code(s): T78.3XXA - Angioneurotic edema, initial encounter (5) HTN (hypertension) Qualifiers: Hypertension type: other secondary hypertension Qualified Code(s): I15.8 - Other secondary hypertension (7) Hyperlipidemia Qualifiers: Hyperlipidemia type: pure hypercholesterolemia Qualified Code(s): E78.00 - Pure hypercholesterolemia, unspecified; E78.0 - Pure hypercholesterolemia (8) Diabetes Qualifiers: Diabetes mellitus type: type 2 Diabetes mellitus jail insulin use: unspecified jail insulin use status Diabetes mellitus complication status : with circulatory complication Diabetes mellitus complication detail: with peripheral angiopathy without gangrene Qualified Code(s): E11.51 - Type 2 diabetes mellitus with diabetic peripheral angiopathy without gangrene (10) Clavicle fracture Qualifiers: Encounter type: subsequent encounter Fracture type: closed Laterality: right <Roxanna Magana - Last Filed: 05/06/18 12:17> (2) Angioedema Qualifiers: Encounter type: initial encounter Qualified Code(s): T78.3XXA - Angioneurotic edema, initial encounter (5) HTN (hypertension) Qualifiers: Hypertension type: other secondary hypertension Qualified Code(s): I15.8 - Other secondary hypertension (7) Hyperlipidemia Qualifiers: Hyperlipidemia type: pure hypercholesterolemia Qualified Code(s): E78.00 - Pure hypercholesterolemia, unspecified; E78.0 - Pure hypercholesterolemia (8) Diabetes Qualifiers: Diabetes mellitus type: type 2 Diabetes 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 insulin use: unspecified broaching machine set up operator insulin use status Diabetes mellitus complication status : with circulatory complication Diabetes mellitus complication detail: with peripheral angiopathy without gangrene Qualified Code(s): E11.51 - Type 2 diabetes mellitus with diabetic peripheral angiopathy without gangrene (10) Clavicle fracture Qualifiers: Encounter type: subsequent encounter Fracture type: closed Laterality: right <Janel Whitt U - Last Filed: 05/05/18 09:31> (2) Angioedema Qualifiers: Encounter type: initial encounter Qualified Code(s): T78.3XXA - Angioneurotic edema, initial encounter (5) HTN (hypertension) Qualifiers: Hypertension type: other secondary hypertension Qualified Code(s): I15.8 - Other secondary hypertension (7) Hyperlipidemia Qualifiers: Hyperlipidemia type: pure hypercholesterolemia Qualified Code(s): E78.00 - Pure hypercholesterolemia, unspecified; E78.0 - Pure hypercholesterolemia (8) Diabetes Qualifiers: Diabetes mellitus type: type 2 Diabetes mellitus jail insulin use: unspecified jail insulin use status Diabetes mellitus complication status : with circulatory complication Diabetes mellitus complication detail: with peripheral angiopathy without gangrene Qualified Code(s): E11.51 - Type 2 diabetes mellitus with diabetic peripheral angiopathy without gangrene (10) Clavicle fracture Qualifiers: Encounter type: subsequent encounter Fracture type: closed Laterality: right <ChinoRoxanna campbell M - Last Filed: 05/06/18 12:17> (2) Angioedema Qualifiers: Encounter type: initial encounter Qualified Code(s): T78.3XXA - Angioneurotic edema, initial encounter (5) HTN (hypertension) Qualifiers: Hypertension type: other secondary hypertension Qualified Code(s): I15.8 - Other secondary hypertension (7) Hyperlipidemia Qualifiers: Hyperlipidemia type: pure hypercholesterolemia Qualified Code(s): E78.00 - Pure hypercholesterolemia, unspecified; E78.0 - Pure hypercholesterolemia (8) Diabetes Qualifiers: Diabetes mellitus type: type 2 Diabetes mellitus jail insulin use: unspecified jail insulin use status Diabetes mellitus complication status : with circulatory complication Diabetes mellitus complication detail: with peripheral angiopathy without gangrene Qualified Code(s): E11.51 - Type 2 diabetes mellitus with diabetic peripheral angiopathy without gangrene (10) Clavicle fracture Qualifiers: Encounter type: subsequent encounter Fracture type: closed Laterality: right
--- NOTE | 2018-05-05 11:38 | P.PNNP ---
Subjective Interval history: Patient remain intubated and sedated. Physical Exam Vital signs: Vital Signs 05/04/18 11:41 05/04/18 11:45 05/04/18 12:00 Temperature 99.5 F Pulse Rate 75 72 74 Respiratory Rate 16 14 14 Blood Pressure 134/57 L 121/60 Pulse Oximetry 99 100 05/04/18 12:15 05/04/18 12:30 05/04/18 12:45 Temperature Pulse Rate 74 74 75 Respiratory Rate 14 14 14 Blood Pressure 125/58 L 117/58 L 114/55 L Pulse Oximetry 100 100 100 05/04/18 13:00 05/04/18 13:15 05/04/18 13:30 Temperature Pulse Rate 73 72 71 Respiratory Rate 14 14 14 Blood Pressure 112/59 L 114/59 L 111/59 L Pulse Oximetry 100 100 100 05/04/18 13:31 05/04/18 13:45 05/04/18 14:00 Temperature Pulse Rate 69 69 Respiratory Rate 14 14 14 Blood Pressure 116/58 L 116/56 L Pulse Oximetry 100 100 100 05/04/18 14:15 05/04/18 14:30 05/04/18 14:45 Temperature Pulse Rate 71 69 69 Respiratory Rate 14 14 14 Blood Pressure 112/56 L 111/57 L 109/58 L Pulse Oximetry 100 100 100 05/04/18 15:00 05/04/18 15:15 05/04/18 15:24 Temperature Pulse Rate 68 67 67 Respiratory Rate 14 14 14 Blood Pressure 110/58 L 111/56 L Pulse Oximetry 100 100 05/04/18 15:30 05/04/18 15:45 05/04/18 16:00 Temperature Pulse Rate 68 73 69 Respiratory Rate 14 14 14 Blood Pressure 119/58 L 130/68 121/59 L Pulse Oximetry 100 100 100 05/04/18 16:15 05/04/18 16:30 05/04/18 16:45 Temperature Pulse Rate 69 68 67 Respiratory Rate 14 14 14 Blood Pressure 127/62 125/60 127/63 Pulse Oximetry 100 100 100 05/04/18 16:49 05/04/18 17:00 05/04/18 17:32 Temperature Pulse Rate 70 Respiratory Rate 14 14 Blood Pressure Pulse Oximetry 100 100 97 05/04/18 17:58 05/04/18 18:00 05/04/18 18:30 Temperature Pulse Rate 69 68 68 Respiratory Rate 14 14 14 Blood Pressure 137/63 133/59 L 126/62 Pulse Oximetry 99 99 100 05/04/18 19:00 05/04/18 19:30 05/04/18 20:00 Temperature 98.8 F Pulse Rate 67 69 68 Respiratory Rate 14 14 14 Blood Pressure 131/62 131/63 122/60 Pulse Oximetry 100 99 99 05/04/18 20:20 05/04/18 20:27 05/04/18 20:30 Temperature Pulse Rate 68 68 Respiratory Rate 14 14 14 Blood Pressure 112/56 L Pulse Oximetry 100 99 05/04/18 21:00 05/04/18 21:30 05/04/18 22:00 Temperature Pulse Rate 71 70 68 Respiratory Rate 14 14 14 Blood Pressure 112/55 L 122/60 125/63 Pulse Oximetry 99 99 100 05/04/18 22:30 05/04/18 23:00 05/04/18 23:30 Temperature Pulse Rate 67 66 67 Respiratory Rate 14 14 14 Blood Pressure 115/60 118/59 L 120/61 Pulse Oximetry 99 99 99 05/05/18 00:00 05/05/18 00:10 05/05/18 00:19 Temperature 99.3 F Pulse Rate 69 68 Respiratory Rate 14 14 14 Blood Pressure 122/65 Pulse Oximetry 98 98 05/05/18 00:30 05/05/18 01:00 05/05/18 01:30 Temperature Pulse Rate 69 69 68 Respiratory Rate 14 0 L 0 L Blood Pressure 109/57 L 107/55 L 113/59 L Pulse Oximetry 98 99 05/05/18 01:56 05/05/18 02:00 05/05/18 02:30 Temperature Pulse Rate 68 68 68 Respiratory Rate 0 L 5 L Blood Pressure 114/59 L 116/56 L Pulse Oximetry 98 98 05/05/18 03:00 05/05/18 03:30 05/05/18 03:55 Temperature Pulse Rate 68 67 69 Respiratory Rate 11 L 14 14 Blood Pressure 121/58 L 115/56 L Pulse Oximetry 100 96 05/05/18 04:00 05/05/18 04:10 05/05/18 04:30 Temperature 98.4 F Pulse Rate 69 70 Respiratory Rate 14 14 14 Blood Pressure 116/58 L 127/60 Pulse Oximetry 97 97 98 05/05/18 05:00 05/05/18 05:30 05/05/18 06:00 Temperature Pulse Rate 72 72 72 Respiratory Rate 14 14 14 Blood Pressure 134/63 130/60 Pulse Oximetry 98 97 98 05/05/18 06:38 05/05/18 07:00 05/05/18 07:30 Temperature Pulse Rate 69 71 72 Respiratory Rate 14 14 14 Blood Pressure 111/56 L 113/56 L 117/59 L Pulse Oximetry 98 98 98 05/05/18 08:00 05/05/18 08:16 05/05/18 10:00 Temperature 99.0 F Pulse Rate 72 73 68 Respiratory Rate 14 15 Blood Pressure 115/55 L Pulse Oximetry 98 98 05/05/18 11:33 Temperature Pulse Rate 75 Respiratory Rate 14 Blood Pressure Pulse Oximetry 99 Intake & Output 05/04/18 05/05/18 05/05/18 18:59 06:59 18:59 Intake Total 1886 / 1886 1280 / 1280 350 / 350 Output Total 900 / 900 Balance 986 / 986 1280 / 1280 350 / 350 Weight 69.8 kg Intake: IV 1600 / 1600 800 / 800 350 / 350 Diprivan 1000 mg/100 ml Inj 1, 200 / 200 200 / 200 100 / 100 000 mg In 100 ml @ 5 MCG/KG/MIN 1.95 mls/hr IV.CONT TITRATE PRN Rx#:[id number] 1/2 Normal Saline Inj 1,000 ML 600 / 600 @ 84 mls/hr IV.CONT .[id number] YUKO Rx#:[id number] Cardene Inj 25 MG In NS Inj 240 500 / 500 500 / 500 250 / 250 ML @ 5 MG/HR 50 mls/hr IV.CONT TITRATE PRN Rx#:[id number] KCl 20 mEq Premix Inj 20 meq In 200 / 200 100 ml @ 50 mls/hr IV.SIG Q2H PRN Rx#:[id number] Keppra 1000 mg/100 mL Premix 100 / 100 100 / 100 100 ML @ 400 mls/hr IV.SIG Q12H YUKO Rx#:[id number] Tube Feeding 286 / 286 360 / 360 Tube Irrigant 120 / 120 Output: Urine Amount (Catheter) 900 / 900 Straight 900 / 900 Other: # Voids 4 # Incontinent Voids 4 Date of Last Bowel Movement 05/04/18 05/05/18 05/05/18 # Bowel Movements 1 4 # Incontinent Bowel Movements 4 Narrative: Patient is intubated and sedated HEENT: Atraumatic. Normocephalic. REGIS, Obvious swelling of tongue and lips but less than the previous day Neck: Supple CV: RRR Lungs: No accessory muscle use, CTAB ABd. Soft, BKA stump moves when the middle of her abdomen is palpated Ext: Mild LE edema - Urinary Catheter Management Straight Cath placed during this visit: no Assessment and Plan - Assessment (1) Acute respiratory failure Code(s): J96.00 - Acute respiratory failure, unspecified whether with hypoxia or hypercapnia Status: Acute (2) Angioedema Code(s): T78.3XXA - Angioneurotic edema, initial encounter Status: Acute Qualifiers: Encounter type: initial encounter Qualified Code(s): T78.3XXA - Angioneurotic edema, initial encounter (3) PRES (posterior reversible encephalopathy syndrome) Code(s): I67.83 - Posterior reversible encephalopathy syndrome Status: Acute (4) Anxiety Code(s): F41.9 - Anxiety disorder, unspecified Status: Acute (5) Dementia Code(s): F03.90 - Unspecified dementia without behavioral disturbance Status: Acute (6) HTN (hypertension) Code(s): I10 - Essential (primary) hypertension Status: Acute Qualifiers: Hypertension type: other secondary hypertension Qualified Code(s): I15.8 - Other secondary hypertension - Plan Patient is intubated with swelling of tongue and lips. BP need better control as per Neurology, to keep SBP 120 or less. BP is elevated, on hydralazine via OGT and IV. Also on Labetalol IV PRN. Also started on Amlodipine, BP is now better controlled. Creatinine has been normal. Neurology following.
[2018-05-06] MEDS: levETIRAcetam 1000mg/100mL Inj 100 ML IV.SIG SCH ×2 (00:32→12:55)
[2018-05-06] MEDS: Propofol 1000 mg/100 ml Inj 1,000 MG/100 ML BOTTLE IV.CONT PRN ×3 (01:00→19:42)
[2018-05-06] MEDS: niCARdipine Inj 25 MG in Sodium Chlor 0.9% Inj 240 ML IV.CONT PRN ×8 (01:27→22:16)
[2018-05-06] MEDS: Oral Hygiene Kit OROPHARYNG SCH ×3 (05:11→15:47)
--- NOTE | 2018-05-06 05:59 | XR ---
EXAM DATE: 05/06/2018 5:56 AM EST AGE/SEX: 68 years / Female INDICATIONS: Shortness of breath. CLINICAL DATA: This is the patient's subsequent encounter. Patient reports that signs and symptoms h ave been present for 2 weeks and indicates a pain score of Nonresponsive. MEDICAL/SURGICAL HISTORY: . Hypertension. Dementia. Diabetes. Cerebrovascular attack. Non-Hodg kin lymphoma. Non-responsive. COMPARISON: [facility] – [place], CHEST 1V SINGLE AP, 05/05/2018. . FINDINGS: The ET tube and NG tube are well placed. The heart size is within normal limits. There is increased d ensity at the bases bilaterally being worse in the left. There is silhouetting of the left hemidiaphr agm. The mid and upper lungs are clear. CONCLUSION: Bibasilar areas of consolidation or atelectasis being worse on the left. Some degree of a left effusi on can be considered. Electronically signed by: Thanh Peraza MD Board Certified Radiologist 05/06/2018 5:58 AM EST
[2018-05-06] MEDS: Insulin NovoLOG Aspart Correctional Sugar Inj SQ SCH ×3 (06:14→17:18)
[2018-05-06] MEDS: Artificial Tears Opth Drops 15 ML Bottle EACH EYE SCH ×2 (06:15→15:21)
[2018-05-06 07:39] LABS: Alanine Aminotransferase 12 U/L (10-53); Albumin 2.4 g/dL (3.4-5.0); Anion Gap 11 meq/L (5-15); Aspartate Aminotransferase 19 U/L (15-37); Blood Urea Nitrogen 22 mg/dL (7-18); Calcium 7.7 mg/dL (8.5-10.1); Carbon Dioxide 19.4 meq/L (21.0-32.0); Chloride 114 meq/L (98-107); Glomerular Filtration Rate 62 mL/min (>89); Glucose,Random 185 mg/dL (74-106); Potassium 3.7 meq/L (3.5-5.1); Sodium 144 meq/L (136-145)
[2018-05-06 07:41] LABS: Alkaline Phosphatase 76 U/L (45-117); Phosphorus 4.2 mg/dL (2.5-4.9); Total Protein 5.7 g/dL (6.4-8.2)
[2018-05-06] MEDS: Chlorhexidine 0.12% Oral Kit 15 ML UDC OROPHARYNG SCH ×2 (08:31→20:47)
[2018-05-06] MEDS: Heparin - SQ 10,000 UNITS/ML Vial SQ SCH ×2 (08:31→20:47)
[2018-05-06] MEDS: Senna/Docusate Sodium 8.6/50 MG Tablet PO SCH ×2 (08:32→20:50)
[2018-05-06] MEDS: Famotidine PF Inj 20 MG/2 ML Vial IV.PUSH SCH ×2 (08:32→20:49)
[2018-05-06] MEDS: amLODIPine 5 MG Tablet PO SCH (08:51)
[2018-05-06 09:33] LABS: Baso # (Auto) 0.1 th/mm3 (0.0-0.2); Baso % (Auto) 0.9 % (0.0-2.0); Eos # (Auto) 0.5 th/mm3 (0.0-0.4); Eos % (Auto) 4.4 % (0.0-4.0); Hematocrit 35.8 % (35.0-46.0); Hemoglobin 11.9 gm/dL (11.6-15.3); Lymph # (Auto) 2.4 th/mm3 (1.0-4.8); Mean Corpuscular HGB Conc 33.2 % (32.0-36.0); Mean Corpuscular Hemoglobin 31.3 pg (27.0-34.0); Mean Corpuscular Volume 94.1 fL (80.0-100.0); Mean Platelet Volume 9.9 fL (7.0-11.0); Mono # (Auto) 1.1 th/mm3 (0.0-0.9); Neut # (Auto) 6.7 th/mm3 (1.8-7.7); Neut % (Auto) 62.7 % (16.0-70.0); Platelet Count 304 th/mm3 (150-450); Red Cell Distribution Width 14.9 % (11.6-17.2); White Blood Count 10.7 th/mm3 (4.0-11.0)
--- NOTE | 2018-05-06 10:23 | P.PNNEU ---
Subjective Active Medications: Active Medications Acetaminophen (Tylenol Liq) 650 mg NG/OG Q6H PRN PRN Reason: PAIN 1-10 AND/OR FEVER >101F Al Hydroxide/Mg Hydroxide (Milk Of Magnesia Liq) 30 ml PO Q12H PRN PRN Reason: Mild Constipation Albuterol (Duoneb Neb (Eloy)) 1 ampul NEB Q4HR NEB [facility] Last Admin: 05/06/18 08:10 Dose: 1 ampul Albuterol (Albuterol Neb (Prn)) 2.5 mg NEB Q2HR NEB PRN PRN Reason: DYSPNEA Amlodipine Besylate (Norvasc) 5 mg PO DAILY [facility] Last Admin: 05/06/18 08:51 Dose: 5 mg Artificial Tears (Tears Naturale Opth Drops) 1 drop EACH EYE Q8H [facility] Last Admin: 05/06/18 06:15 Dose: 1 drop Aspirin (Aspirin Chew) 81 mg NG/OG DAILY [facility] Last Admin: 05/06/18 08:31 Dose: 81 mg Atorvastatin Calcium (Lipitor) 40 mg NG/OG HS [facility] Last Admin: 05/05/18 20:01 Dose: 40 mg Bisacodyl (Dulcolax Supp) 10 mg RECTAL DAILY PRN PRN Reason: SEVERE CONSITIPATION Chlorhexidine Gluconate (Peridex 0.12% Oral Kit) 15 ml OROPHARYNG BID@0800, 2000 [facility] Last Admin: 05/06/18 08:31 Dose: 15 ml Dextrose (D50w Vial) 50 ml IV.PUSH UNSCH PRN PRN Reason: PER HYPOGLYCEMIA PROTOCOL Famotidine (Pepcid Pf Inj) 20 mg IV.PUSH Q12HR [facility] Last Admin: 05/06/18 08:32 Dose: 20 mg Gabapentin (Neurontin) 600 mg PO BID [facility] Last Admin: 05/01/18 08:56 Dose: Not Given Glucagon (Glucagon Inj) 1 mg OTHER PRN PRN PRN Reason: for Hypoglycemia Protocol Heparin Sodium (Porcine) (Heparin Inj) 5,000 units SQ Q12HR [facility] Last Admin: 05/06/18 08:31 Dose: 5,000 units Hydralazine HCl (Apresoline) 25 mg NG/OG QID PRN PRN Reason: SEE LABEL COMMENTS Last Admin: 05/03/18 20:40 Dose: 25 mg Hydralazine HCl (Apresoline Inj) 10 mg IV.PUSH Q1H PRN PRN Reason: sbp > 140 Levetiracetam (Keppra 1000 Mg/100 Ml Premix) 100 mls @ 400 mls/hr IV.SIG Q12H [facility] Last Infusion: 05/06/18 02:00 Dose: Infused Nicardipine HCl 25 mg/ Sodium (Chloride) 250 mls @ 50 mls/hr IV.CONT TITRATE PRN; Protocol PRN Reason: Per Protocol Last Admin: 05/06/18 09:58 Dose: 7.5 mg/hr, 75 mls/hr Propofol (Diprivan 1000 Mg/100 Ml Inj) 1,000 mg in 100 mls @ 1.95 mls/hr IV.CONT TITRATE PRN; Protocol PRN Reason: Per Protocol Last Titration: 05/06/18 09:30 Dose: 10 mcg/kg/min, 3.9 mls/hr Fentanyl (Fentanyl 10 Mcg/Ml Premix Drip) 2,500 mcg in 250 mls @ 5 mls/hr IV.SIG TITRATE PRN; Protocol PRN Reason: Per Protocol Magnesium Sulfate 4 gm/ Sodium (Chloride) 100 mls @ 50 mls/hr IV.SIG UNSCH PRN PRN Reason: For Magnesium 0.9 - 1.1 mg/dL Magnesium Sulfate 2 gm/ Sodium (Chloride) 100 mls @ 50 mls/hr IV.SIG UNSCH PRN PRN Reason: For Magnesium 1.2 - 1.6 mg/dL Potassium Chloride (Kcl 40 Meq Premix Inj) 40 meq in 100 mls @ 25 mls/hr IV.SIG Q2H PRN PRN Reason: For Potassium 2.8 - 3.2 mEq/L Potassium Chloride (Kcl 20 Meq Premix Inj) 20 meq in 100 mls @ 50 mls/hr IV.SIG Q2H PRN PRN Reason: For Potassium 3.3 - 3.5 mEq/L Last Infusion: 05/04/18 12:43 Dose: Infused Potassium Chloride (Kcl 40 Meq Premix Inj) 40 meq in 100 mls @ 25 mls/hr IV.SIG UNSCH PRN PRN Reason: For Potassium 3.3 - 3.5 mEq/L Potassium Chloride (Kcl 20 Meq Premix Inj) 20 meq in 100 mls @ 50 mls/hr IV.SIG Q2H PRN PRN Reason: For Potassium 2.8 - 3.2 mEq/L Potassium Phosphate 30 mmol/ (Sodium Chloride) 260 mls @ 42 mls/hr IV.SIG UNSCH PRN PRN Reason: SEE LABEL COMMENTS Sodium Phosphate 30 mmol/ (Sodium Chloride) 260 mls @ 42 mls/hr IV.SIG UNSCH PRN PRN Reason: For Phosphorus < 2.5 mg/dL Insulin Aspart (Novolog Insulin Correctional Sugar Inj) 0 unit SQ Q6HR [facility]; Protocol Last Admin: 05/06/18 06:14 Dose: 3 unit Labetalol HCl (Trandate Inj) 10 mg IV.PUSH Q1H PRN PRN Reason: Sbp>140, Dbp>90, Hr>65 Lactulose (Lactulose Liq) 30 ml PO DAILY PRN PRN Reason: SEVERE CONSITIPATION Magnesium Oxide (Mag-Ox) 800 mg PO UNSCH PRN PRN Reason: For Magnesium 1.2 - 1.6 mg/dL Miscellaneous Medication () 1 each OROPHARYNG 0000,0400,1200,1600 [facility] Last Admin: 05/06/18 05:11 Dose: 1 each Nitroglycerin (Nitro-Bid 2% Oint) 2 inch TOPICAL Q6HR PRN PRN Reason: Sbp>140, Dbp>90 Potassium Bicarb/Potassium Chloride (K-Lyte Cl Eff) 50 meq PO UNSCH PRN PRN Reason: For Potassium 3.3 - 3.5 mEq/L Potassium Phosphate (K-Phos Original) 2,000 mg PO Q4H PRN PRN Reason: Phosphorus Less Than 2.5 mg/dL Potassium Phosphate (K-Phos Original) 2,000 mg PO UNSCH PRN PRN Reason: SEE LABEL COMMENTS Senna/Docusate Sodium (Aleah-Colace) 1 tab PO BID [facility] Last Admin: 05/06/18 08:32 Dose: 1 tab Sennosides (Senokot) 17.2 mg PO Q12H PRN PRN Reason: Moderate Constipation Sodium Chloride (Ns Flush) 2 ml IV.FLUSH BID [facility] Last Admin: 05/06/18 08:32 Dose: 2 ml Sodium Chloride (Ns Flush) 2 ml IV.FLUSH UNSCH PRN PRN Reason: FLUSH AFTER USING IV ACCESS Last Admin: 05/06/18 08:32 Dose: 2 ml Thiamine HCl (Thiamine Inj) 100 mg IM DAILY [facility] Last Admin: 05/06/18 08:33 Dose: 100 mg Allergies/Adverse Reactions: Allergies Allergy/AdvReac Type Severity Reaction Status Date / Time iodine Allergy Swelling Verified 04/19/18 15:50 Physical Exam Vital signs: Vital Signs 05/05/18 10:30 05/05/18 11:00 05/05/18 11:30 Temperature Pulse Rate 74 74 75 Respiratory Rate 14 14 14 Blood Pressure 107/56 L 113/57 L 117/59 L Pulse Oximetry 98 98 98 05/05/18 11:33 05/05/18 12:00 05/05/18 12:30 Temperature 98.9 F Pulse Rate 75 75 76 Respiratory Rate 14 14 14 Blood Pressure 118/59 L 114/58 L Pulse Oximetry 99 98 100 05/05/18 13:00 05/05/18 13:30 05/05/18 14:00 Temperature Pulse Rate 76 74 74 Respiratory Rate 14 14 14 Blood Pressure 120/60 111/56 L 111/55 L Pulse Oximetry 100 100 100 05/05/18 14:30 05/05/18 15:00 05/05/18 15:30 Temperature Pulse Rate 73 71 72 Respiratory Rate 14 14 19 Blood Pressure 99/52 L 106/53 L 106/53 L Pulse Oximetry 100 100 05/05/18 15:41 05/05/18 16:00 05/05/18 16:30 Temperature 100 F H Pulse Rate 74 74 74 Respiratory Rate 19 17 15 Blood Pressure 128/60 116/58 L 134/61 Pulse Oximetry 100 99 100 05/05/18 17:00 05/05/18 17:10 05/05/18 17:30 Temperature Pulse Rate 78 77 78 Respiratory Rate 17 16 16 Blood Pressure 141/65 H 137/63 144/63 H Pulse Oximetry 100 100 99 05/05/18 17:48 05/05/18 17:56 05/05/18 18:00 Temperature Pulse Rate 79 78 78 Respiratory Rate 17 15 16 Blood Pressure 141/63 H 125/57 L 125/59 L Pulse Oximetry 99 99 99 05/05/18 18:15 05/05/18 18:30 05/05/18 18:45 Temperature Pulse Rate 78 77 78 Respiratory Rate 15 16 16 Blood Pressure 123/57 L 125/60 124/60 Pulse Oximetry 99 99 100 05/05/18 19:00 05/05/18 19:19 12/30/18 19:30 Temperature Pulse Rate 78 77 80 Respiratory Rate 16 16 14 Blood Pressure 130/60 125/59 L 130/63 Pulse Oximetry 100 100 99 05/05/18 19:45 05/05/18 20:00 05/05/18 20:08 Temperature 98.9 F Pulse Rate 81 80 79 Respiratory Rate 18 15 16 Blood Pressure 132/63 120/58 L 129/60 Pulse Oximetry 99 97 98 05/05/18 20:15 05/05/18 20:30 05/05/18 20:42 Temperature Pulse Rate 76 77 77 Respiratory Rate 16 17 15 Blood Pressure 117/59 L 102/59 L Pulse Oximetry 97 97 97 05/05/18 20:45 05/05/18 21:00 05/05/18 21:15 Temperature Pulse Rate 78 80 81 Respiratory Rate 17 14 15 Blood Pressure 112/59 L 119/56 L 123/59 L Pulse Oximetry 97 97 97 05/05/18 21:30 05/05/18 21:45 05/05/18 22:00 Temperature Pulse Rate 84 83 80 Respiratory Rate 14 15 15 Blood Pressure 121/58 L 118/58 L 121/58 L Pulse Oximetry 97 97 97 05/05/18 22:15 05/05/18 22:30 05/05/18 22:45 Temperature Pulse Rate 80 81 80 Respiratory Rate 14 14 15 Blood Pressure 117/57 L 123/59 L 116/56 L Pulse Oximetry 97 97 98 05/05/18 23:00 05/05/18 23:15 05/05/18 23:30 Temperature Pulse Rate 79 79 79 Respiratory Rate 14 14 15 Blood Pressure 114/56 L 127/60 117/56 L Pulse Oximetry 98 99 97 05/05/18 23:45 05/06/18 00:00 05/06/18 00:15 Temperature 99.4 F Pulse Rate 79 79 77 Respiratory Rate 28 H 16 20 Blood Pressure 119/58 L 118/58 L 118/56 L Pulse Oximetry 98 97 97 05/06/18 00:30 05/06/18 00:41 05/06/18 00:45 Temperature Pulse Rate 76 77 77 Respiratory Rate 14 14 18 Blood Pressure 116/55 L 114/56 L Pulse Oximetry 96 96 96 05/06/18 01:00 05/06/18 01:15 05/06/18 01:30 Temperature Pulse Rate 78 79 81 Respiratory Rate 14 14 14 Blood Pressure 106/54 L 107/53 L 115/59 L Pulse Oximetry 96 96 96 05/06/18 01:45 05/06/18 02:00 05/06/18 02:15 Temperature Pulse Rate 81 82 82 Respiratory Rate 14 14 14 Blood Pressure 114/58 L 116/59 L 116/57 L Pulse Oximetry 95 95 95 05/06/18 02:30 05/06/18 02:45 05/06/18 03:00 Temperature Pulse Rate 82 83 79 Respiratory Rate 14 14 14 Blood Pressure 115/57 L 115/57 L 111/55 L Pulse Oximetry 95 95 94 L 05/06/18 03:15 05/06/18 03:30 05/06/18 03:45 Temperature Pulse Rate 78 77 77 Respiratory Rate 14 14 14 Blood Pressure 111/54 L 101/50 L 111/56 L Pulse Oximetry 94 L 95 94 L 05/06/18 04:00 05/06/18 04:10 05/06/18 04:15 Temperature 98.8 F Pulse Rate 78 78 77 Respiratory Rate 14 14 14 Blood Pressure 114/57 L 120/59 L Pulse Oximetry 94 L 95 96 05/06/18 04:30 05/06/18 04:45 05/06/18 05:00 Temperature Pulse Rate 78 81 82 Respiratory Rate 14 6 L 6 L Blood Pressure 108/55 L 117/59 L 121/57 L Pulse Oximetry 94 L 95 95 05/06/18 05:15 05/06/18 05:30 05/06/18 05:45 Temperature Pulse Rate 78 77 77 Respiratory Rate 14 14 14 Blood Pressure 121/60 131/61 118/60 Pulse Oximetry 98 99 98 05/06/18 06:00 05/06/18 06:15 05/06/18 06:30 Temperature Pulse Rate 76 75 77 Respiratory Rate 14 14 14 Blood Pressure 116/55 L 120/58 L 125/60 Pulse Oximetry 96 97 98 05/06/18 06:45 05/06/18 07:00 05/06/18 07:15 Temperature Pulse Rate 75 75 74 Respiratory Rate 14 14 14 Blood Pressure 118/56 L 115/56 L 123/59 L Pulse Oximetry 96 96 97 05/06/18 07:30 05/06/18 07:45 05/06/18 08:00 Temperature 98.8 F Pulse Rate 75 74 75 Respiratory Rate 14 14 14 Blood Pressure 121/59 L 121/57 L 116/58 L Pulse Oximetry 95 96 96 05/06/18 08:04 05/06/18 08:08 05/06/18 08:15 Temperature Pulse Rate 75 74 Respiratory Rate 14 14 14 Blood Pressure 115/56 L Pulse Oximetry 94 L 95 05/06/18 08:30 05/06/18 08:45 05/06/18 09:00 Temperature Pulse Rate 77 82 87 Respiratory Rate 17 27 H 27 H Blood Pressure 95/54 L 143/66 H 139/65 Pulse Oximetry 96 95 95 05/06/18 09:15 Temperature Pulse Rate 92 H Respiratory Rate 34 H Blood Pressure 137/65 Pulse Oximetry 95 Intake & Output 05/05/18 05/06/18 05/06/18 18:59 06:59 18:59 Intake Total 1287 / 1287 2070 / 2070 250 / 250 Output Total 1010 / 1010 800 / 800 Balance 277 / 277 1270 / 1270 250 / 250 Weight 69.9 kg Intake: IV 800 / 800 1400 / 1400 250 / 250 Diprivan 1000 mg/100 ml Inj 1, 200 / 200 300 / 300 000 mg In 100 ml @ 5 MCG/KG/MIN 1.95 mls/hr IV.CONT TITRATE PRN Rx#:[id number] Cardene Inj 25 MG In NS Inj 240 500 / 500 1000 / 1000 250 / 250 ML @ 5 MG/HR 50 mls/hr IV.CONT TITRATE PRN Rx#:[id number] Keppra 1000 mg/100 mL Premix 100 / 100 100 / 100 100 ML @ 400 mls/hr IV.SIG Q12H [facility] Rx#:[id number] Tube Feeding 487 / 487 550 / 550 Tube Irrigant 120 / 120 Output: Urine 710 / 710 800 / 800 Stool 300 / 300 Other: # Voids 6 # Incontinent Voids 2 6 Date of Last Bowel Movement 05/05/18 05/06/18 05/06/18 # Incontinent Bowel Movements 2 Narrative: on vent ad some dip follws commands sticks out tongue moves all ext well to command - Urinary Catheter Management Straight Cath placed during this visit: no Objective Laboratory Results - last 24 hr 05/02/18 05/05/18 05/05/18 11:30 09:32 11:49 WBC RBC Hgb Hct MCV MCH MCHC RDW Plt Count MPV Neut % (Auto) Lymph % (Auto) Pine % (Auto) Eos % (Auto) Baso % (Auto) Neut # (Auto) Lymph # (Auto) Pine # (Auto) Eos # (Auto) Baso # (Auto) WBC Differential Differential Comment Sodium Potassium Chloride Carbon Dioxide Anion Gap BUN Creatinine Estimated GFR POC Glucose 182 H Random Glucose Calcium Phosphorus Magnesium Total Bilirubin AST ALT Alkaline Phosphatase Total Protein Albumin CSF VDRL Non-reactive Stl C.difficile DNA Amp Negative St C. diff Tox Epid 027 Negative 05/05/18 05/05/18 05/06/18 17:50 23:45 05:49 WBC RBC Hgb Hct MCV MCH MCHC RDW Plt Count MPV Neut % (Auto) Lymph % (Auto) Pine % (Auto) Eos % (Auto) Baso % (Auto) Neut # (Auto) Lymph # (Auto) Pine # (Auto) Eos # (Auto) Baso # (Auto) WBC Differential Differential Comment Sodium 144 Potassium 3.7 Chloride 114 H Carbon Dioxide 19.4 L Anion Gap 11 BUN 22 H Creatinine 0.91 Estimated GFR 62 L POC Glucose 152 H 147 H Random Glucose 185 H Calcium 7.7 L Phosphorus 4.2 Magnesium 2.0 Total Bilirubin 0.3 AST 19 ALT 12 Alkaline Phosphatase 76 Total Protein 5.7 L Albumin 2.4 L CSF VDRL Stl C.difficile DNA Amp St C. diff Tox Epid 027 05/06/18 05/06/18 06:13 08:52 WBC 10.7 RBC 3.80 L Hgb 11.9 Hct 35.8 MCV 94.1 MCH 31.3 MCHC 33.2 RDW 14.9 Plt Count 304 MPV 9.9 Neut % (Auto) 62.7 Lymph % (Auto) 22.0 Pine % (Auto) 10.0 H Eos % (Auto) 4.4 H Baso % (Auto) 0.9 Neut # (Auto) 6.7 Lymph # (Auto) 2.4 Pine # (Auto) 1.1 H Eos # (Auto) 0.5 H Baso # (Auto) 0.1 WBC Differential . Differential Comment Auto diff final Sodium Potassium Chloride Carbon Dioxide Anion Gap BUN Creatinine Estimated GFR POC Glucose 205 H Random Glucose Calcium Phosphorus Magnesium Total Bilirubin AST ALT Alkaline Phosphatase Total Protein Albumin CSF VDRL Stl C.difficile DNA Amp St C. diff Tox Epid 027 Microbiology 05/03/18 08:00 Gram Stain - Final Sputum - Endotracheal Sputum Culture - Final Heavy growth normal respiratory maritza 05/02/18 11:30 Gram Stain - Final Lumbar Puncture CSF Culture - Final No growth in 72 hours Review/Management - Diagnosis (1) Hypertensive encephalopathy Code(s): I67.4 - Hypertensive encephalopathy Status: Acute Current Visit: Yes (2) HTN (hypertension) Code(s): I10 - Essential (primary) hypertension Status: Acute Current Visit : No (3) Dementia Code(s): F03.90 - Unspecified dementia without behavioral disturbance Status: Acute Current Visit: No (4) Seizures Code(s): R56.9 - Unspecified convulsions Status: Acute Current Visit: No (5) Anxiety Code(s): F41.9 - Anxiety disorder, unspecified Status: Acute Current Visit: No - Review/Management Plan: 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 may have element of PRES as noted in prior notes recs check csf studies-pending bp control Thiamine supplementation follow exam Dr. Mehta to follow in a.m. 05/01/18 mri loops like PRES mra and mrv and labs all neg keep bp 110-120/ LP today eeg neg on keppra --------- 05/02/18 looks a little better mri repeat yest no change pres bp better keep 110-120/ await LP needs done today!! on keppra 05/03/18 mri no change eeg neg LP neg bp better check ct abd and pelvis and chest paraneo 05/06/18 looks so much better neurowise check paraneoplastic labs PRES clinically better thiamine pend will recheck mri in few days keep bp down 110-120/ ct chest and abd ok (2) HTN (hypertension) Qualifiers: Hypertension type: other secondary hypertension Qualified Code(s): I15.8 - Other secondary hypertension
--- NOTE | 2018-05-06 11:25 | P.PNFP ---
Subjective Interval history: 68 yo female with dementia, DM, HTN admitted for hypertension related to catatonia (due likely to depression), now in ICU intubated due to angioedema. This morning is off sedation and is alert and responsive to commands/questions. She is not in pain but is uncomfortable and still endorses feelings of depression. <TorresJordan Fontana S - 05/06/18 11:25> Results - Labs Result diagrams: 05/06/18 08:52 05/06/18 05:49 <Roxanna Magana - 05/06/18 12:20> Abnormal lab results 05/05/18 05/05/18 05/06/18 Range/Units 17:50 23:45 05:49 RBC (4.00-5.30) mil/mm3 [place] % (Auto) (0.0-8.0) % Eos % (Auto) (0.0-4.0) % [place] # (Auto) (0.0-0.9) th/mm3 Eos # (Auto) (0.0-0.4) th/mm3 Chloride 114 H (98-107) meq/L Carbon Dioxide 19.4 L (21.0-32.0) meq/L BUN 22 H (7-18) mg/dL Estimated GFR 62 L (>89) mL/min POC Glucose 152 H 147 H (68-110) mg/dl Random Glucose 185 H (74-106) mg/dL Calcium 7.7 L (8.5-10.1) mg/dL Total Protein 5.7 L (6.4-8.2) g/dL Albumin 2.4 L (3.4-5.0) g/dL 05/06/18 05/06/18 05/06/18 Range/Units 06:13 08:52 11:14 RBC 3.80 L (4.00-5.30) mil/mm3 [place] % (Auto) 10.0 H (0.0-8.0) % Eos % (Auto) 4.4 H (0.0-4.0) % [place] # (Auto) 1.1 H (0.0-0.9) th/mm3 Eos # (Auto) 0.5 H (0.0-0.4) th/mm3 Chloride (98-107) meq/L Carbon Dioxide (21.0-32.0) meq/L BUN (7-18) mg/dL Estimated GFR (>89) mL/min POC Glucose 205 H 163 H (68-110) mg/dl Random Glucose (74-106) mg/dL Calcium (8.5-10.1) mg/dL Total Protein (6.4-8.2) g/dL Albumin (3.4-5.0) g/dL Short CBC 05/06/18 Range/Units 08:52 WBC 10.7 (4.0-11.0) th/mm3 Hgb 11.9 (11.6-15.3) gm/dL Hct 35.8 (35.0-46.0) % Plt Count 304 (150-450) th/mm3 BMP 05/06/18 05:49 Sodium 144 Potassium 3.7 Chloride 114 H Carbon Dioxide 19.4 L BUN 22 H Creatinine 0.91 Calcium 7.7 L Liver Function 05/06/18 Range/Units 05:49 Total Bilirubin 0.3 (0.2-1.0) mg/dL AST 19 (15-37) U/L ALT 12 (10-53) U/L Alkaline Phosphatase 76 (45-117) U/L Albumin 2.4 L (3.4-5.0) g/dL <Roxanna Magana - 05/06/18 12:20> Abnormal lab results 05/05/18 05/05/18 05/05/18 Range/Units 11:49 17:50 23:45 RBC (4.00-5.30) mil/mm3 [place] % (Auto) (0.0-8.0) % Eos % (Auto) (0.0-4.0) % [place] # (Auto) (0.0-0.9) th/mm3 Eos # (Auto) (0.0-0.4) th/mm3 Chloride (98-107) meq/L Carbon Dioxide (21.0-32.0) meq/L BUN (7-18) mg/dL Estimated GFR (>89) mL/min POC Glucose 182 H 152 H 147 H (68-110) mg/dl Random Glucose (74-106) mg/dL Calcium (8.5-10.1) mg/dL Total Protein (6.4-8.2) g/dL Albumin (3.4-5.0) g/dL 05/06/18 05/06/18 05/06/18 Range/Units 05:49 06:13 08:52 RBC 3.80 L (4.00-5.30) mil/mm3 [place] % (Auto) 10.0 H (0.0-8.0) % Eos % (Auto) 4.4 H (0.0-4.0) % [place] # (Auto) 1.1 H (0.0-0.9) th/mm3 Eos # (Auto) 0.5 H (0.0-0.4) th/mm3 Chloride 114 H (98-107) meq/L Carbon Dioxide 19.4 L (21.0-32.0) meq/L BUN 22 H (7-18) mg/dL Estimated GFR 62 L (>89) mL/min POC Glucose 205 H (68-110) mg/dl Random Glucose 185 H (74-106) mg/dL Calcium 7.7 L (8.5-10.1) mg/dL Total Protein 5.7 L (6.4-8.2) g/dL Albumin 2.4 L (3.4-5.0) g/dL Short CBC 05/06/18 Range/Units 08:52 WBC 10.7 (4.0-11.0) th/mm3 Hgb 11.9 (11.6-15.3) gm/dL Hct 35.8 (35.0-46.0) % Plt Count 304 (150-450) th/mm3 BMP 05/06/18 05:49 Sodium 144 Potassium 3.7 Chloride 114 H Carbon Dioxide 19.4 L BUN 22 H Creatinine 0.91 Calcium 7.7 L Liver Function 05/06/18 Range/Units 05:49 Total Bilirubin 0.3 (0.2-1.0) mg/dL AST 19 (15-37) U/L ALT 12 (10-53) U/L Alkaline Phosphatase 76 (45-117) U/L Albumin 2.4 L (3.4-5.0) g/dL <Torres R3,Jordan S - 05/06/18 11:25> - Imaging Impressions Chest X-Ray 05/06/18 06:00 CONCLUSION: Bibasilar areas of consolidation or atelectasis being worse on the left. Some degree of a left effusion can be considered. <ChinoRoxanna M - 05/06/18 12:20> Impressions Chest X-Ray 05/06/18 06:00 CONCLUSION: Bibasilar areas of consolidation or atelectasis being worse on the left. Some degree of a left effusion can be considered. <Torres R3,Jordan S - 05/06/18 11:25> Physical Exam Vital signs: Vital Signs 05/05/18 12:30 05/05/18 13:00 05/05/18 13:30 Temperature Pulse Rate 76 76 74 Respiratory Rate 14 14 14 Blood Pressure 114/58 L 120/60 111/56 L Pulse Oximetry 100 100 100 05/05/18 14:00 05/05/18 14:30 05/05/18 15:00 Temperature Pulse Rate 74 73 71 Respiratory Rate 14 14 14 Blood Pressure 111/55 L 99/52 L 106/53 L Pulse Oximetry 100 100 100 05/05/18 15:30 05/05/18 15:41 05/05/18 16:00 Temperature 100 F H Pulse Rate 72 74 74 Respiratory Rate 19 19 17 Blood Pressure 106/53 L 128/60 116/58 L Pulse Oximetry 100 99 05/05/18 16:30 05/05/18 17:00 05/05/18 17:10 Temperature Pulse Rate 74 78 77 Respiratory Rate 15 17 16 Blood Pressure 134/61 141/65 H 137/63 Pulse Oximetry 100 100 100 05/05/18 17:30 05/05/18 17:48 05/05/18 17:56 Temperature Pulse Rate 78 79 78 Respiratory Rate 16 17 15 Blood Pressure 144/63 H 141/63 H 125/57 L Pulse Oximetry 99 99 99 05/05/18 18:00 05/05/18 18:15 05/05/18 18:30 Temperature Pulse Rate 78 78 77 Respiratory Rate 16 15 16 Blood Pressure 125/59 L 123/57 L 125/60 Pulse Oximetry 99 99 99 05/05/18 18:45 05/05/18 19:00 05/05/18 19:19 Temperature Pulse Rate 78 78 77 Respiratory Rate 16 16 16 Blood Pressure 124/60 130/60 125/59 L Pulse Oximetry 100 100 100 05/05/18 19:30 05/05/18 19:45 05/05/18 20:00 Temperature 98.9 F Pulse Rate 80 81 80 Respiratory Rate 14 18 15 Blood Pressure 130/63 132/63 120/58 L Pulse Oximetry 99 99 97 05/05/18 20:08 05/05/18 20:15 05/05/18 20:30 Temperature Pulse Rate 79 76 77 Respiratory Rate 16 16 17 Blood Pressure 129/60 117/59 L 102/59 L Pulse Oximetry 98 97 97 05/05/18 20:42 05/05/18 20:45 05/05/18 21:00 Temperature Pulse Rate 77 78 80 Respiratory Rate 15 17 14 Blood Pressure 112/59 L 119/56 L Pulse Oximetry 97 97 97 05/05/18 21:15 05/05/18 21:30 05/05/18 21:45 Temperature Pulse Rate 81 84 83 Respiratory Rate 15 14 15 Blood Pressure 123/59 L 121/58 L 118/58 L Pulse Oximetry 97 97 97 05/05/18 22:00 05/05/18 22:15 05/05/18 22:30 Temperature Pulse Rate 80 80 81 Respiratory Rate 15 14 14 Blood Pressure 121/58 L 117/57 L 123/59 L Pulse Oximetry 97 97 97 05/05/18 22:45 05/05/18 23:00 05/05/18 23:15 Temperature Pulse Rate 80 79 79 Respiratory Rate 15 14 14 Blood Pressure 116/56 L 114/56 L 127/60 Pulse Oximetry 98 98 99 05/05/18 23:30 05/05/18 23:45 05/06/18 00:00 Temperature 99.4 F Pulse Rate 79 79 79 Respiratory Rate 15 28 H 16 Blood Pressure 117/56 L 119/58 L 118/58 L Pulse Oximetry 97 98 97 05/06/18 00:15 05/06/18 00:30 05/06/18 00:41 Temperature Pulse Rate 77 76 77 Respiratory Rate 20 14 14 Blood Pressure 118/56 L 116/55 L Pulse Oximetry 97 96 96 05/06/18 00:45 05/06/18 01:00 05/06/18 01:15 Temperature Pulse Rate 77 78 79 Respiratory Rate 18 14 14 Blood Pressure 114/56 L 106/54 L 107/53 L Pulse Oximetry 96 96 96 05/06/18 01:30 05/06/18 01:45 05/06/18 02:00 Temperature Pulse Rate 81 81 82 Respiratory Rate 14 14 14 Blood Pressure 115/59 L 114/58 L 116/59 L Pulse Oximetry 96 95 95 05/06/18 02:15 05/06/18 02:30 05/06/18 02:45 Temperature Pulse Rate 82 82 83 Respiratory Rate 14 14 14 Blood Pressure 116/57 L 115/57 L 115/57 L Pulse Oximetry 95 95 95 05/06/18 03:00 05/06/18 03:15 05/06/18 03:30 Temperature Pulse Rate 79 78 77 Respiratory Rate 14 14 14 Blood Pressure 111/55 L 111/54 L 101/50 L Pulse Oximetry 94 L 94 L 95 05/06/18 03:45 05/06/18 04:00 05/06/18 04:10 Temperature 98.8 F Pulse Rate 77 78 78 Respiratory Rate 14 14 14 Blood Pressure 111/56 L 114/57 L Pulse Oximetry 94 L 94 L 95 05/06/18 04:15 05/06/18 04:30 05/06/18 04:45 Temperature Pulse Rate 77 78 81 Respiratory Rate 14 14 6 L Blood Pressure 120/59 L 108/55 L 117/59 L Pulse Oximetry 96 94 L 95 05/06/18 05:00 05/06/18 05:15 05/06/18 05:30 Temperature Pulse Rate 82 78 77 Respiratory Rate 6 L 14 14 Blood Pressure 121/57 L 121/60 131/61 Pulse Oximetry 95 98 99 05/06/18 05:45 05/06/18 06:00 05/06/18 06:15 Temperature Pulse Rate 77 76 75 Respiratory Rate 14 14 14 Blood Pressure 118/60 116/55 L 120/58 L Pulse Oximetry 98 96 97 05/06/18 06:30 05/06/18 06:45 05/06/18 07:00 Temperature Pulse Rate 77 75 75 Respiratory Rate 14 14 14 Blood Pressure 125/60 118/56 L 115/56 L Pulse Oximetry 98 96 96 05/06/18 07:15 05/06/18 07:30 05/06/18 07:45 Temperature Pulse Rate 74 75 74 Respiratory Rate 14 14 14 Blood Pressure 123/59 L 121/59 L 121/57 L Pulse Oximetry 97 95 96 05/06/18 08:00 05/06/18 08:04 05/06/18 08:08 Temperature 98.8 F Pulse Rate 75 75 Respiratory Rate 14 14 14 Blood Pressure 116/58 L Pulse Oximetry 96 94 L 05/06/18 08:15 05/06/18 08:30 05/06/18 08:45 Temperature Pulse Rate 74 77 82 Respiratory Rate 14 17 27 H Blood Pressure 115/56 L 95/54 L 143/66 H Pulse Oximetry 95 96 95 05/06/18 09:00 05/06/18 09:15 05/06/18 09:30 Temperature Pulse Rate 87 92 H 91 H Respiratory Rate 27 H 34 H 14 Blood Pressure 139/65 137/65 133/63 Pulse Oximetry 95 95 96 05/06/18 09:45 05/06/18 09:55 05/06/18 10:00 Temperature Pulse Rate 88 88 89 Respiratory Rate 14 14 14 Blood Pressure 129/60 122/57 L 128/63 Pulse Oximetry 95 95 96 05/06/18 10:15 05/06/18 10:30 05/06/18 10:58 Temperature Pulse Rate 92 H 102 H 97 H Respiratory Rate 30 H 31 H 30 H Blood Pressure 137/66 139/70 Pulse Oximetry 95 95 05/06/18 10:59 Temperature Pulse Rate Respiratory Rate 28 H Blood Pressure Pulse Oximetry Intake & Output 05/05/18 05/06/18 05/06/18 18:59 06:59 18:59 Intake Total 1287 / 1287 2070 / 2070 250 / 250 Output Total 1010 / 1010 800 / 800 Balance 277 / 277 1270 / 1270 250 / 250 Weight 69.9 kg Intake: IV 800 / 800 1400 / 1400 250 / 250 Diprivan 1000 mg/100 ml Inj 1, 200 / 200 300 / 300 000 mg In 100 ml @ 5 MCG/KG/MIN 1.95 mls/hr IV.CONT TITRATE PRN Rx#:[id number] Cardene Inj 25 MG In NS Inj 240 500 / 500 1000 / 1000 250 / 250 ML @ 5 MG/HR 50 mls/hr IV.CONT TITRATE PRN Rx#:[id number] Keppra 1000 mg/100 mL Premix 100 / 100 100 / 100 100 ML @ 400 mls/hr IV.SIG Q12H YUKO Rx#:[id number] Tube Feeding 487 / 487 550 / 550 Tube Irrigant 120 / 120 Output: Urine 710 / 710 800 / 800 Stool 300 / 300 Other: # Voids 6 # Incontinent Voids 2 6 Date of Last Bowel Movement 05/05/18 05/06/18 05/06/18 # Incontinent Bowel Movements 2 <Roxanna Magana M - 05/06/18 12:20> Vital Signs 05/05/18 11:30 05/05/18 11:33 05/05/18 12:00 Temperature 98.9 F Pulse Rate 75 75 75 Respiratory Rate 14 14 14 Blood Pressure 117/59 L 118/59 L Pulse Oximetry 98 99 98 05/05/18 12:30 05/05/18 13:00 05/05/18 13:30 Temperature Pulse Rate 76 76 74 Respiratory Rate 14 14 14 Blood Pressure 114/58 L 120/60 111/56 L Pulse Oximetry 100 100 100 05/05/18 14:00 05/05/18 14:30 05/05/18 15:00 Temperature Pulse Rate 74 73 71 Respiratory Rate 14 14 14 Blood Pressure 111/55 L 99/52 L 106/53 L Pulse Oximetry 100 100 100 05/05/18 15:30 05/05/18 15:41 05/05/18 16:00 Temperature 100 F H Pulse Rate 72 74 74 Respiratory Rate 19 19 17 Blood Pressure 106/53 L 128/60 116/58 L Pulse Oximetry 100 99 05/05/18 16:30 05/05/18 17:00 05/05/18 17:10 Temperature Pulse Rate 74 78 77 Respiratory Rate 15 17 16 Blood Pressure 134/61 141/65 H 137/63 Pulse Oximetry 100 100 100 05/05/18 17:30 05/05/18 17:48 05/05/18 17:56 Temperature Pulse Rate 78 79 78 Respiratory Rate 16 17 15 Blood Pressure 144/63 H 141/63 H 125/57 L Pulse Oximetry 99 99 99 05/05/18 18:00 05/05/18 18:15 05/05/18 18:30 Temperature Pulse Rate 78 78 77 Respiratory Rate 16 15 16 Blood Pressure 125/59 L 123/57 L 125/60 Pulse Oximetry 99 99 99 05/05/18 18:45 05/05/18 19:00 05/05/18 19:19 Temperature Pulse Rate 78 78 77 Respiratory Rate 16 16 16 Blood Pressure 124/60 130/60 125/59 L Pulse Oximetry 100 100 100 05/05/18 19:30 05/05/18 19:45 05/05/18 20:00 Temperature 98.9 F Pulse Rate 80 81 80 Respiratory Rate 14 18 15 Blood Pressure 130/63 132/63 120/58 L Pulse Oximetry 99 99 97 05/05/18 20:08 05/05/18 20:15 05/05/18 20:30 Temperature Pulse Rate 79 76 77 Respiratory Rate 16 16 17 Blood Pressure 129/60 117/59 L 102/59 L Pulse Oximetry 98 97 97 05/05/18 20:42 05/05/18 20:45 05/05/18 21:00 Temperature Pulse Rate 77 78 80 Respiratory Rate 15 17 14 Blood Pressure 112/59 L 119/56 L Pulse Oximetry 97 97 97 05/05/18 21:15 05/05/18 21:30 05/05/18 21:45 Temperature Pulse Rate 81 84 83 Respiratory Rate 15 14 15 Blood Pressure 123/59 L 121/58 L 118/58 L Pulse Oximetry 97 97 97 05/05/18 22:00 05/05/18 22:15 05/05/18 22:30 Temperature Pulse Rate 80 80 81 Respiratory Rate 15 14 14 Blood Pressure 121/58 L 117/57 L 123/59 L Pulse Oximetry 97 97 97 05/05/18 22:45 05/05/18 23:00 05/05/18 23:15 Temperature Pulse Rate 80 79 79 Respiratory Rate 15 14 14 Blood Pressure 116/56 L 114/56 L 127/60 Pulse Oximetry 98 98 99 05/05/18 23:30 05/05/18 23:45 05/06/18 00:00 Temperature 99.4 F Pulse Rate 79 79 79 Respiratory Rate 15 28 H 16 Blood Pressure 117/56 L 119/58 L 118/58 L Pulse Oximetry 97 98 97 05/06/18 00:15 05/06/18 00:30 05/06/18 00:41 Temperature Pulse Rate 77 76 77 Respiratory Rate 20 14 14 Blood Pressure 118/56 L 116/55 L Pulse Oximetry 97 96 96 05/06/18 00:45 05/06/18 01:00 05/06/18 01:15 Temperature Pulse Rate 77 78 79 Respiratory Rate 18 14 14 Blood Pressure 114/56 L 106/54 L 107/53 L Pulse Oximetry 96 96 96 05/06/18 01:30 05/06/18 01:45 05/06/18 02:00 Temperature Pulse Rate 81 81 82 Respiratory Rate 14 14 14 Blood Pressure 115/59 L 114/58 L 116/59 L Pulse Oximetry 96 95 95 05/06/18 02:15 05/06/18 02:30 05/06/18 02:45 Temperature Pulse Rate 82 82 83 Respiratory Rate 14 14 14 Blood Pressure 116/57 L 115/57 L 115/57 L Pulse Oximetry 95 95 95 05/06/18 03:00 05/06/18 03:15 05/06/18 03:30 Temperature Pulse Rate 79 78 77 Respiratory Rate 14 14 14 Blood Pressure 111/55 L 111/54 L 101/50 L Pulse Oximetry 94 L 94 L 95 05/06/18 03:45 05/06/18 04:00 05/06/18 04:10 Temperature 98.8 F Pulse Rate 77 78 78 Respiratory Rate 14 14 14 Blood Pressure 111/56 L 114/57 L Pulse Oximetry 94 L 94 L 95 05/06/18 04:15 05/06/18 04:30 05/06/18 04:45 Temperature Pulse Rate 77 78 81 Respiratory Rate 14 14 6 L Blood Pressure 120/59 L 108/55 L 117/59 L Pulse Oximetry 96 94 L 95 05/06/18 05:00 05/06/18 05:15 05/06/18 05:30 Temperature Pulse Rate 82 78 77 Respiratory Rate 6 L 14 14 Blood Pressure 121/57 L 121/60 131/61 Pulse Oximetry 95 98 99 05/06/18 05:45 05/06/18 06:00 05/06/18 06:15 Temperature Pulse Rate 77 76 75 Respiratory Rate 14 14 14 Blood Pressure 118/60 116/55 L 120/58 L Pulse Oximetry 98 96 97 05/06/18 06:30 05/06/18 06:45 05/06/18 07:00 Temperature Pulse Rate 77 75 75 Respiratory Rate 14 14 14 Blood Pressure 125/60 118/56 L 115/56 L Pulse Oximetry 98 96 96 05/06/18 07:15 05/06/18 07:30 05/06/18 07:45 Temperature Pulse Rate 74 75 74 Respiratory Rate 14 14 14 Blood Pressure 123/59 L 121/59 L 121/57 L Pulse Oximetry 97 95 96 05/06/18 08:00 05/06/18 08:04 05/06/18 08:08 Temperature 98.8 F Pulse Rate 75 75 Respiratory Rate 14 14 14 Blood Pressure 116/58 L Pulse Oximetry 96 94 L 05/06/18 08:15 05/06/18 08:30 05/06/18 08:45 Temperature Pulse Rate 74 77 82 Respiratory Rate 14 17 27 H Blood Pressure 115/56 L 95/54 L 143/66 H Pulse Oximetry 95 96 95 05/06/18 09:00 05/06/18 09:15 05/06/18 09:30 Temperature Pulse Rate 87 92 H 91 H Respiratory Rate 27 H 34 H 14 Blood Pressure 139/65 137/65 133/63 Pulse Oximetry 95 95 96 05/06/18 09:45 05/06/18 09:55 05/06/18 10:00 Temperature Pulse Rate 88 88 89 Respiratory Rate 14 14 14 Blood Pressure 129/60 122/57 L 128/63 Pulse Oximetry 95 95 96 05/06/18 10:15 05/06/18 10:30 05/06/18 10:58 Temperature Pulse Rate 92 H 102 H 97 H Respiratory Rate 30 H 31 H 30 H Blood Pressure 137/66 139/70 Pulse Oximetry 95 95 05/06/18 10:59 Temperature Pulse Rate Respiratory Rate 28 H Blood Pressure Pulse Oximetry Intake & Output 05/05/18 05/06/18 05/06/18 18:59 06:59 18:59 Intake Total 1287 / 1287 2070 / 2070 250 / 250 Output Total 1010 / 1010 800 / 800 Balance 277 / 277 1270 / 1270 250 / 250 Weight 69.9 kg Intake: IV 800 / 800 1400 / 1400 250 / 250 Diprivan 1000 mg/100 ml Inj 1, 200 / 200 300 / 300 000 mg In 100 ml @ 5 MCG/KG/MIN 1.95 mls/hr IV.CONT TITRATE PRN Rx#:[id number] Cardene Inj 25 MG In NS Inj 240 500 / 500 1000 / 1000 250 / 250 ML @ 5 MG/HR 50 mls/hr IV.CONT TITRATE PRN Rx#:[id number] Keppra 1000 mg/100 mL Premix 100 / 100 100 / 100 100 ML @ 400 mls/hr IV.SIG Q12H YUKO Rx#:[id number] Tube Feeding 487 / 487 550 / 550 Tube Irrigant 120 / 120 Output: Urine 710 / 710 800 / 800 Stool 300 / 300 Other: # Voids 6 # Incontinent Voids 2 6 Date of Last Bowel Movement 05/05/18 05/06/18 05/06/18 # Incontinent Bowel Movements 2 <Jordan Schrader S - 05/06/18 11:25> - Constitutional no acute distress, average body habitus, cooperative <Jordan Schrader S - 11:25> Comments: intubated <Jordan Schrader S - 05/06/18 11:25> - Routine HEENT Exam Head: Present: normocephalic, atraumatic <Jordan Schrader S - 05/06/18 11:25> ENT: Present: mucous membranes moist <Jordan Schrader S - 05/06/18 11:25> Comments: tongue enlarged <Jordan Schrader S - 05/06/18 11:25> - Routine Respiratory Exam Present: CTA bilaterally. Absent: accessory muscle use, wheezes, crackles < Jordan Schrader S - 05/06/18 11:25> - Routine Cardiovascular Exam Present: RRR, S1, S2. Absent: murmur <Jordan Schrader S - 05/06/18 11:25> - Routine Abdominal Exam Present: soft. Absent: tenderness <Jordan Schrader S - 05/06/18 11:25> - Routine Neurological Exam Present: alert, moving all extremities (RLE s/p above knee amputation). Absent : altered mental status, hemineglect, facial asymmetry, tremors <TorresJordan Fontana S - 05/06/18 11:25> - Detailed Neurological Exam: Coma Scale Eye Opening: Spontaneous <Jordan Schrader S - 05/06/18 11:25> Motor Response: Obey commands <Torres Jordan Tyson S - 05/06/18 11:25> 11T <Torres Jordan Tyson S 05/06/18 11:25> - Routine Psychiatric Exam Present: depressed <Jordan Schrader S - 05/06/18 11:25> - Urinary Catheter Management Straight Cath placed during this visit: no <Roxanna Magana M - 05/06/18 12:20> no <Jordan Schrader S - 05/06/18 11:54> Assessment and Plan - Assessment (1) Acute respiratory failure Code(s): J96.00 - Acute respiratory failure, unspecified whether with hypoxia or hypercapnia Status: Acute (2) Angioedema Code(s): T78.3XXA - Angioneurotic edema, initial encounter Status: Acute (3) Catatonia associated with another mental disorder Code(s): F06.1 - Catatonic disorder due to known physiological condition Status: Acute (4) PRES (posterior reversible encephalopathy syndrome) Code(s): I67.83 - Posterior reversible encephalopathy syndrome Status: Acute (5) HTN (hypertension) Code(s): I10 - Essential (primary) hypertension Status: Acute (6) Seizures Code(s): R56.9 - Unspecified convulsions Status: Acute (7) Hyperlipidemia Code(s): E78.5 - Hyperlipidemia, unspecified Status: Chronic (8) Diabetes Code(s): E11.9 - Type 2 diabetes mellitus without complications Status: Chronic (9) Diarrhea Code(s): R19.7 - Diarrhea, unspecified Status: Acute (10) Clavicle fracture Code(s): S42.009A - Fracture of unspecified part of unspecified clavicle, initial encounter for closed fracture Status: Acute (11) Nutrition, metabolism, and development symptoms Code(s): R63.8 - Other symptoms and signs concerning food and fluid intake Status: Acute <Roxanna Magana M - 05/06/18 12:20> (1) Acute respiratory failure Code(s): J96.00 - Acute respiratory failure, unspecified whether with hypoxia or hypercapnia Status: Acute (2) Angioedema Code(s): T78.3XXA - Angioneurotic edema, initial encounter Status: Acute (3) Catatonia associated with another mental disorder Code(s): F06.1 - Catatonic disorder due to known physiological condition Status: Acute (4) PRES (posterior reversible encephalopathy syndrome) Code(s): I67.83 - Posterior reversible encephalopathy syndrome Status: Acute (5) HTN (hypertension) Code(s): I10 - Essential (primary) hypertension Status: Acute (6) Seizures Code(s): R56.9 - Unspecified convulsions Status: Acute (7) Hyperlipidemia Code(s): E78.5 - Hyperlipidemia, unspecified Status: Chronic (8) Diabetes Code(s): E11.9 - Type 2 diabetes mellitus without complications Status: Chronic (9) Diarrhea Code(s): R19.7 - Diarrhea, unspecified Status: Acute (10) Clavicle fracture Code(s): S42.009A - Fracture of unspecified part of unspecified clavicle, initial encounter for closed fracture Status: Acute (11) Nutrition, metabolism, and development symptoms Code(s): R63.8 - Other symptoms and signs concerning food and fluid intake Status: Acute <Torres R3,Jordan S - 05/06/18 11:45> - Assessment and Plan 68 yo female with dementia, HTN, DM admitted with: Catatonia Medical work-up has been negative except for PRES. Given that her altered mental status preceded her hypertension it is likely that the root cause of her altered mental state is catatonia. She does have a component of PRES by MRI but this is most likely due to hypertension caused by catatonia rather than primary hypertension leading to encephalopathy. CBC and CK within normal limits; no signs of NMS ABG essentially normal Ammonia very slightly elevated, unlikely to be etiology of her mental status LATONYA screen positive, titer pending RF negative RPR negative ESR normal * Continue Lexapro and Seroquel * Ativan stopped due to hypotension, respiratory failure from angioedema * Psychiatry consulted, appreciate assistance * Only treatment likely to improve her depression/catatonia is ECT - ongoing discussion to make arrangements to transfer her to a facility that performs ECT , however she is not stable for transfer at the moment. * CT abdomen/pelvis showed questionable pancreatic mass, ruled out by MRI * Normal CA 19/9, CEA and CA 125 * Manage hypertension as noted below Acute Respiratory Failure due to angioedema Now intubated: PEEP 5, RR 14, TV 500, FIO2 35% * CCM consulted, appreciate assistance * Intubated 05/03 * Completed treatment with H1/H2 anayeli and steroid * Duonebs Q4H * Hopeful for extubation today PRES MRI findings suggestive of PRES * Neurology following, appreciate assistance * Control BP as below Hypertension BP still intermittently elevated likely related to catatonia Difficulty taking PO meds due to fluctuating mental status * Due to PRES needs tighter BP control per neurology: goal SBP 110-120 * Continue nicardipine drip titrated to target BP < 120/90 * Amlodipine 5mg added by nephrology, appreciate assistance * Hydralazine, Nitropaste and labetalol as needed for BP control * After extubation can work on titrating medications PO and transitioning to med /surg care in hopes of getting stable for transfer to ECT facility Seizure Disorder Now with possible repeat seizure vs (more likely) catalepsy from catatonia EEG with nonspecific encephalopathy MRI/MRA unremarkable except for PRES as noted LP performed 05/02/18 - chemistries / cultures normal so far * Neurology on board, appreciate assistance * Continue Keppra to 1000 mg IV BID * Control BP as part of PRES management * Treat catatonia as above Diabetes mellitus BG at hospital goal now * Check sugar Q6H now that she is on continuous tube feedings * Holding metformin for now * Low dose SSI Hyperlipidemia * Continue home atorvastatin Diarrhea C difficile negative * Most likely normal due to tube feeds and patient being NPO before tube feeds were initiated * Continue to monitor Right [id number] amputation PT/OT evaluate and treat Clavicle Fracture, right RUE neurovascularly intact, no deformity noted * Monitor clinically * WBAT RUE Fluids: Tube feeds and drips only, no running IVF Diet: Tube feed only at the moment * Nutritional status has been poor for last > 1 week, not eating much * Consulted mobile home laborer, appreciate recs * Glucerna 1.5 @ 60 mL/hr * ST can reevaluate once extubated for likely resumption of her diet GI: Famotidine Docusate serum/senna 1 tablet twice daily for bowel regimen DVT: Heparin BID ICU electrolyte replacement protocol <Brian Jordan Tyson S - 05/06/18 11:54> Discharge Planning: Pending improvement of respiratory status, neurologic work- up. Once extubated and BP stable on oral agents, likely would benefit from ECT; pending psychiatry assistance and neurology clearance. <Brian TysonJordan S - 05/06/18 11:54> - Attending Attestation The exam, history, and the medical decision-making described in the above note were completed with the assistance of the resident physician. I reviewed and agree with the findings presented. I attest that I had a [id number] encounter with the patient on the same day, and personally performed and documented my assessment and findings in the medical record. she looks vastly improved today. her tongue is back to a normal size. she is as alert as I've ever seen her. Dr Acosta discussed Ketamine as an option for her severe depression especially if she cannot have ECT for any reason <Roxanna Magana M - 05/06/18 12:20> <Jordan Schrader S - Last Filed: 05/06/18 11:45> (2) Angioedema Qualifiers: Encounter type: initial encounter Qualified Code(s): T78.3XXA - Angioneurotic edema, initial encounter (5) HTN (hypertension) Qualifiers: Hypertension type: other secondary hypertension Qualified Code(s): I15.8 - Other secondary hypertension (7) Hyperlipidemia Qualifiers: Hyperlipidemia type: pure hypercholesterolemia Qualified Code(s): E78.00 - Pure hypercholesterolemia, unspecified; E78.0 - Pure hypercholesterolemia (8) Diabetes Qualifiers: Diabetes mellitus type: type 2 Diabetes mellitus termite inspector insulin use: unspecified termite inspector insulin use status Diabetes mellitus complication status : with circulatory complication Diabetes mellitus complication detail: with peripheral angiopathy without gangrene Qualified Code(s): E11.51 - Type 2 diabetes mellitus with diabetic peripheral angiopathy without gangrene (10) Clavicle fracture Qualifiers: Encounter type: subsequent encounter Fracture type: closed Laterality: right <Roxanna Magana M - Last Filed: 05/06/18 12:20> (2) Angioedema Qualifiers: Encounter type: initial encounter Qualified Code(s): T78.3XXA - Angioneurotic edema, initial encounter (5) HTN (hypertension) Qualifiers: Hypertension type: other secondary hypertension Qualified Code(s): I15.8 - Other secondary hypertension (7) Hyperlipidemia Qualifiers: Hyperlipidemia type: pure hypercholesterolemia Qualified Code(s): E78.00 - Pure hypercholesterolemia, unspecified; E78.0 - Pure hypercholesterolemia (8) Diabetes Qualifiers: Diabetes mellitus type: type 2 Diabetes mellitus termite inspector insulin use: unspecified longterm insulin use status Diabetes mellitus complication status : with circulatory complication Diabetes mellitus complication detail: with peripheral angiopathy without gangrene Qualified Code(s): E11.51 - Type 2 diabetes mellitus with diabetic peripheral angiopathy without gangrene (10) Clavicle fracture Qualifiers: Encounter type: subsequent encounter Fracture type: closed Laterality: right <Brian TysonJordan S - Last Filed: 05/06/18 11:45> (2) Angioedema Qualifiers: Encounter type: initial encounter Qualified Code(s): T78.3XXA - Angioneurotic edema, initial encounter (5) HTN (hypertension) Qualifiers: Hypertension type: other secondary hypertension Qualified Code(s): I15.8 - Other secondary hypertension (7) Hyperlipidemia Qualifiers: Hyperlipidemia type: pure hypercholesterolemia Qualified Code(s): E78.00 - Pure hypercholesterolemia, unspecified; E78.0 - Pure hypercholesterolemia (8) Diabetes Qualifiers: Diabetes mellitus type: type 2 Diabetes mellitus longterm insulin use: unspecified termite inspector insulin use status Diabetes mellitus complication status : with circulatory complication Diabetes mellitus complication detail: with peripheral angiopathy without gangrene Qualified Code(s): E11.51 - Type 2 diabetes mellitus with diabetic peripheral angiopathy without gangrene (10) Clavicle fracture Qualifiers: Encounter type: subsequent encounter Fracture type: closed Laterality: right <NaplesRoxanna campbell M - Last Filed: 05/06/18 12:20> (2) Angioedema Qualifiers: Encounter type: initial encounter Qualified Code(s): T78.3XXA - Angioneurotic edema, initial encounter (5) HTN (hypertension) Qualifiers: Hypertension type: other secondary hypertension Qualified Code(s): I15.8 - Other secondary hypertension (7) Hyperlipidemia Qualifiers: Hyperlipidemia type: pure hypercholesterolemia Qualified Code(s): E78.00 - Pure hypercholesterolemia, unspecified; E78.0 - Pure hypercholesterolemia (8) Diabetes Qualifiers: Diabetes mellitus type: type 2 Diabetes mellitus longterm insulin use: unspecified longterm insulin use status Diabetes mellitus complication status : with circulatory complication Diabetes mellitus complication detail: with peripheral angiopathy without gangrene Qualified Code(s): E11.51 - Type 2 diabetes mellitus with diabetic peripheral angiopathy without gangrene (10) Clavicle fracture Qualifiers: Encounter type: subsequent encounter Fracture type: closed Laterality: right
--- NOTE | 2018-05-06 11:35 | P.PNCC ---
Subjective Subjective Remarks/Hospital Course: This is a 68-year-old female. Admission 04/30/2018. Date of consultation 05/03/2018. Past medical history includes non-Hodgkin's lymphoma in remission since 2008, history of CVA, underlying dementia disorder NOS, hypertension, hyperlipidemia, peripheral vascular disease with known right carotid stenosis, diabetes mellitus, gout, and a known right clavicle fracture. She has a right [id number] amputation from peripheral vascular disease. Patient presents to [facility] 04/30 with recent admissions for catatonia state. Patient was treated under psychiatry to be medically cleared by family medicine practice with little improvement in her symptomatology. She presented here with elevated blood pressure and altered mental status. She received clonidine and hydralazine the results and was started on nicardipine drip and transferred to the intensive care unit. She is also on lisinopril which was discontinued recently. Her nicardipine drip is currently off. This morning, was notified by the RN patient had a swollen tongue and has had increasing oxygen requirements. Patient required emergent intubation with glide scope without complication. Most likely is introduced secondary to JACE inhibitor. Patient is currently on famotidine, diphenhydramine and received 1 dose of steroids. 05/04: Currently resting in bed in no acute distress. Tongue remains swollen. Replace potassium. Restarted on nicardipine drip overnight due to hypertension. 05/05: Remains on nicardipine drip at 5 mg an hour. Tongue remains less swollen today. Will diuresis with bumetanide x1. Does not appear to be any distress. Propofol is currently 50 sunita grams per kilogram per minute. Will lessen sedation today. Subjective 05/06: Remains on nicardipine drip at 5 mcg an hour. Tongue mitral swollen. Weaning parameters borderline. Emesis during spontaneous breathing trials noted. Objective Vital Signs / I&O: Vital Signs 05/05/18 11:33 05/05/18 12:00 05/05/18 12:30 Temperature 98.9 F Pulse Rate 75 75 76 Respiratory Rate 14 14 14 Blood Pressure 118/59 L 114/58 L Pulse Oximetry 99 98 100 05/05/18 13:00 05/05/18 13:30 05/05/18 14:00 Temperature Pulse Rate 76 74 74 Respiratory Rate 14 14 14 Blood Pressure 120/60 111/56 L 111/55 L Pulse Oximetry 100 100 100 12/30/18 14:30 05/05/18 15:00 05/05/18 15:30 Temperature Pulse Rate 73 71 72 Respiratory Rate 14 14 19 Blood Pressure 99/52 L 106/53 L 106/53 L Pulse Oximetry 100 100 05/05/18 15:41 05/05/18 16:00 05/05/18 16:30 Temperature 100 F H Pulse Rate 74 74 74 Respiratory Rate 19 17 15 Blood Pressure 128/60 116/58 L 134/61 Pulse Oximetry 100 99 100 05/05/18 17:00 05/05/18 17:10 05/05/18 17:30 Temperature Pulse Rate 78 77 78 Respiratory Rate 17 16 16 Blood Pressure 141/65 H 137/63 144/63 H Pulse Oximetry 100 100 99 05/05/18 17:48 05/05/18 17:56 05/05/18 18:00 Temperature Pulse Rate 79 78 78 Respiratory Rate 17 15 16 Blood Pressure 141/63 H 125/57 L 125/59 L Pulse Oximetry 99 99 99 05/05/18 18:15 05/05/18 18:30 05/05/18 18:45 Temperature Pulse Rate 78 77 78 Respiratory Rate 15 16 16 Blood Pressure 123/57 L 125/60 124/60 Pulse Oximetry 99 99 100 05/05/18 19:00 05/05/18 19:19 05/05/18 19:30 Temperature Pulse Rate 78 77 80 Respiratory Rate 16 16 14 Blood Pressure 130/60 125/59 L 130/63 Pulse Oximetry 100 100 99 05/05/18 19:45 05/05/18 20:00 05/05/18 20:08 Temperature 98.9 F Pulse Rate 81 80 79 Respiratory Rate 18 15 16 Blood Pressure 132/63 120/58 L 129/60 Pulse Oximetry 99 97 98 05/05/18 20:15 05/05/18 20:30 05/05/18 20:42 Temperature Pulse Rate 76 77 77 Respiratory Rate 16 17 15 Blood Pressure 117/59 L 102/59 L Pulse Oximetry 97 97 97 05/05/18 20:45 05/05/18 21:00 05/05/18 21:15 Temperature Pulse Rate 78 80 81 Respiratory Rate 17 14 15 Blood Pressure 112/59 L 119/56 L 123/59 L Pulse Oximetry 97 97 97 05/05/18 21:30 05/05/18 21:45 05/05/18 22:00 Temperature Pulse Rate 84 83 80 Respiratory Rate 14 15 15 Blood Pressure 121/58 L 118/58 L 121/58 L Pulse Oximetry 97 97 97 05/05/18 22:15 05/05/18 22:30 05/05/18 22:45 Temperature Pulse Rate 80 81 80 Respiratory Rate 14 14 15 Blood Pressure 117/57 L 123/59 L 116/56 L Pulse Oximetry 97 97 98 05/05/18 23:00 05/05/18 23:15 05/05/18 23:30 Temperature Pulse Rate 79 79 79 Respiratory Rate 14 14 15 Blood Pressure 114/56 L 127/60 117/56 L Pulse Oximetry 98 99 97 05/05/18 23:45 05/06/18 00:00 05/06/18 00:15 Temperature 99.4 F Pulse Rate 79 79 77 Respiratory Rate 28 H 16 20 Blood Pressure 119/58 L 118/58 L 118/56 L Pulse Oximetry 98 97 97 05/06/18 00:30 05/06/18 00:41 05/06/18 00:45 Temperature Pulse Rate 76 77 77 Respiratory Rate 14 14 18 Blood Pressure 116/55 L 114/56 L Pulse Oximetry 96 96 96 05/06/18 01:00 05/06/18 01:15 05/06/18 01:30 Temperature Pulse Rate 78 79 81 Respiratory Rate 14 14 14 Blood Pressure 106/54 L 107/53 L 115/59 L Pulse Oximetry 96 96 96 05/06/18 01:45 05/06/18 02:00 05/06/18 02:15 Temperature Pulse Rate 81 82 82 Respiratory Rate 14 14 14 Blood Pressure 114/58 L 116/59 L 116/57 L Pulse Oximetry 95 95 95 05/06/18 02:30 05/06/18 02:45 05/06/18 03:00 Temperature Pulse Rate 82 83 79 Respiratory Rate 14 14 14 Blood Pressure 115/57 L 115/57 L 111/55 L Pulse Oximetry 95 95 94 L 05/06/18 03:15 05/06/18 03:30 05/06/18 03:45 Temperature Pulse Rate 78 77 77 Respiratory Rate 14 14 14 Blood Pressure 111/54 L 101/50 L 111/56 L Pulse Oximetry 94 L 95 94 L 05/06/18 04:00 05/06/18 04:10 05/06/18 04:15 Temperature 98.8 F Pulse Rate 78 78 77 Respiratory Rate 14 14 14 Blood Pressure 114/57 L 120/59 L Pulse Oximetry 94 L 95 96 05/06/18 04:30 05/06/18 04:45 05/06/18 05:00 Temperature Pulse Rate 78 81 82 Respiratory Rate 14 6 L 6 L Blood Pressure 108/55 L 117/59 L 121/57 L Pulse Oximetry 94 L 95 95 05/06/18 05:15 05/06/18 05:30 05/06/18 05:45 Temperature Pulse Rate 78 77 77 Respiratory Rate 14 14 14 Blood Pressure 121/60 131/61 118/60 Pulse Oximetry 98 99 98 05/06/18 06:00 05/06/18 06:15 05/06/18 06:30 Temperature Pulse Rate 76 75 77 Respiratory Rate 14 14 14 Blood Pressure 116/55 L 120/58 L 125/60 Pulse Oximetry 96 97 98 05/06/18 06:45 05/06/18 07:00 05/06/18 07:15 Temperature Pulse Rate 75 75 74 Respiratory Rate 14 14 14 Blood Pressure 118/56 L 115/56 L 123/59 L Pulse Oximetry 96 96 97 05/06/18 07:30 05/06/18 07:45 05/06/18 08:00 Temperature 98.8 F Pulse Rate 75 74 75 Respiratory Rate 14 14 14 Blood Pressure 121/59 L 121/57 L 116/58 L Pulse Oximetry 95 96 96 05/06/18 08:04 05/06/18 08:08 05/06/18 08:15 Temperature Pulse Rate 75 74 Respiratory Rate 14 14 14 Blood Pressure 115/56 L Pulse Oximetry 94 L 95 05/06/18 08:30 05/06/18 08:45 05/06/18 09:00 Temperature Pulse Rate 77 82 87 Respiratory Rate 17 27 H 27 H Blood Pressure 95/54 L 143/66 H 139/65 Pulse Oximetry 96 95 95 05/06/18 09:15 05/06/18 09:30 05/06/18 09:45 Temperature Pulse Rate 92 H 91 H 88 Respiratory Rate 34 H 14 14 Blood Pressure 137/65 133/63 129/60 Pulse Oximetry 95 96 95 05/06/18 09:55 05/06/18 10:00 05/06/18 10:15 Temperature Pulse Rate 88 89 92 H Respiratory Rate 14 14 30 H Blood Pressure 122/57 L 128/63 137/66 Pulse Oximetry 95 96 95 05/06/18 10:30 05/06/18 10:58 05/06/18 10:59 Temperature Pulse Rate 102 H 97 H Respiratory Rate 31 H 30 H 28 H Blood Pressure 139/70 Pulse Oximetry 95 Intake & Output 05/05/18 05/06/18 05/06/18 18:59 06:59 18:59 Intake Total 1287 / 1287 2070 / 2070 250 / 250 Output Total 1010 / 1010 800 / 800 Balance 277 / 277 1270 / 1270 250 / 250 Weight 69.9 kg Intake: IV 800 / 800 1400 / 1400 250 / 250 Diprivan 1000 mg/100 ml Inj 1, 200 / 200 300 / 300 000 mg In 100 ml @ 5 MCG/KG/MIN 1.95 mls/hr IV.CONT TITRATE PRN Rx#:[id number] Cardene Inj 25 MG In NS Inj 240 500 / 500 1000 / 1000 250 / 250 ML @ 5 MG/HR 50 mls/hr IV.CONT TITRATE PRN Rx#:[id number] Keppra 1000 mg/100 mL Premix 100 / 100 100 / 100 100 ML @ 400 mls/hr IV.SIG Q12H YUKO Rx#:[id number] Tube Feeding 487 / 487 550 / 550 Tube Irrigant 120 / 120 Output: Urine 710 / 710 800 / 800 Stool 300 / 300 Other: # Voids 6 # Incontinent Voids 2 6 Date of Last Bowel Movement 05/05/18 05/06/18 05/06/18 # Incontinent Bowel Movements 2 Result Diagrams: 05/06/18 08:52 05/06/18 05:49 Other Results: Microbiology 05/03/18 08:00 Sputum - Endotracheal Gram Stain - Final 05/03/18 08:00 Sputum - Endotracheal Sputum Culture - Final Heavy growth normal respiratory maritza 05/02/18 11:30 Lumbar Puncture Gram Stain - Final 05/02/18 11:30 Lumbar Puncture CSF Culture - Final No growth in 72 hours 05/02/18 11:30 Cerebral Spinal Fluid - Lumbar Puncture Acid Fast Bacilli Smear - Final No acid fast bacilli seen 05/02/18 11:30 Cerebral Spinal Fluid - Lumbar Puncture Fungal Smear - Final No fungal elements seen Imaging: Carotid Doppler Study 05/01/18 00:00 CONCLUSION: 1. Elevation of the peak systolic velocity of the left internal carotid artery suggesting 50-69% stenosis although the ICA/CCA ratio on the left suggests less than 50% stenosis. CTA of the carotids would be helpful to resolve these discordant findings. There is also elevation of the peak systolic velocity of the left external carotid artery in the 50-69% stenosis range. 2. Less than 50% stenosis involving the right internal carotid artery. 3. Moderate atherosclerotic plaque formation within the carotid bulbs and proximal internal carotid arteries. Head MRI 05/01/18 19:26 There is vasogenic edema seen involving the posterior aspects of the parietal lobes as well as the occipital lobes bilaterally. This is similar to the prior examination. Periventricular high FLAIR signal abnormality also noted involving both cerebral hemispheres but most pronounced within the parietal lobes. This is unchanged. A small lacunar infarction involving the left abraham radiata. No hemorrhage. No acute infarction. Normal flow voids within the major intracranial vessels. Ventricles are normal in size. Orbital structures are normal. No abnormal enhancement following gadolinium. Mucosal thickening without air-fluid levels involving anterior ethmoid air cells on the right. Remaining paranasal sinuses are clear. Fluid signal seen within the mastoid air cells bilaterally but more pronounced on the left. CONCLUSION: 1. Study degraded by motion artifact. 2. Vasogenic edema involving the parietal and occipital lobes bilaterally is stable. Although not specific for this could relate to posterior reversible encephalopathy syndrome (PRES). 3. Atrophy. 4. Chronic small vessel ischemic change. Lumbar Puncture Fluoroscopy 05/02/18 00:00 CONCLUSION: 1. Uncomplicated fluoroscopically guided lumbar puncture. Abdomen/Pelvis CT 05/03/18 00:00 CONCLUSION: 1. Questionable mass within the body of the pancreas measuring 1.7 x 2.6 cm. MRI of the abdomen with contrast may be helpful for further characterization of this questionable mass if clinically indicated. 2. Gallbladder wall is mildly thickened. If there is clinical concern for acute cholecystitis, a hepatobiliary scan may be helpful to confirm cystic duct obstruction. 3. Liver is enlarged and appears somewhat nodular in contour raising the possibility of cirrhosis. No focal mass is noted. 4. Small bilateral pleural effusions with adjacent alveolar consolidations are noted. 5. Tiny pericardial effusion. 6. Minimal ascites. 7. 11 mm calcified fibroid within the uterus. 8. Degenerative changes and scoliosis of the thoracolumbar spine. Chest CT 05/03/18 00:00 CONCLUSION: 1. Small bilateral pleural effusions. 2. Posterior bibasilar alveolar consolidations consistent with compressive atelectasis and/or pneumonia. Clinical correlation is recommended. 3. Tiny pericardial effusion. 4. Cardiomegaly and coronary artery calcifications. 5. No pulmonary nodule, mass or lymphadenopathy. 6. Scoliosis and degenerative changes involving the thoracic spine. Chest X-Ray 05/03/18 07:08 CONCLUSION: 1. Improved position of the endotracheal tube which is now 3 cm above the tim. 2. Scattered bibasilar atelectasis. 3. Degenerative changes and scoliosis of the thoracic spine. Chest X-Ray 05/03/18 07:09 CONCLUSION: 1. Endotracheal tube is low in position at the level of the tim and directed towards the right mainstem bronchus. This should be pulled back 3 cm for more optimal positioning. 2. Scattered atelectatic changes bilaterally. 3. Degenerative changes and scoliosis of the thoracic spine. Abdomen MRI 05/04/18 00:00 CONCLUSION: 1. No pancreatic mass identified on MRI. 2. Bilateral pleural effusions. Moderate anasarca. Mild ascites. Chest X-Ray 05/05/18 06:00 CONCLUSION: Worsening mild consolidation and small pleural effusions at each base. New nasogastric tube coursing into the stomach, tip not included on the study. Endotracheal tube tip is about 2 cm above the tim. Chest X-Ray 05/06/18 06:00 CONCLUSION: Bibasilar areas of consolidation or atelectasis being worse on the left. Some degree of a left effusion can be considered. Objective Remarks: GENERAL: This is a 68-year-old female currently orotracheally intubated SKIN: Warm and dry. HEAD: Atraumatic. Normocephalic. EYES: Pupils equal and round around 3 mm bilaterally and reactive. No scleral icterus. No injection or drainage. ENT: No nasal bleeding or discharge. Mucous membranes pink and moist. Tongue less edematous and swollen NECK: Trachea midline. No JVD. CARDIOVASCULAR: Regular rate and rhythm. S1, S2. No S4. RESPIRATORY: No accessory muscle use. Patient bases with few crackles. GASTROINTESTINAL: Abdomen soft, non-tender, obese. Hepatic and splenic margins not palpable. MUSCULOSKELETAL: Extremities trace bilateral lower extremity edema. No obvious deformities. NEUROLOGICAL: S arousable moving all 4 extremities spontaneously to command. Positive cough and gag. Positive corneal reflex. Withdraws to pain. Assessment and Plan - Assessment and Plan Plan: Neuro/Psych: Acute encephalopathy Possible PRES History of CVA Seizure disorder NOS [place] MRI brain revealed vasogenic edema in the bilateral posterior occipital lobes. Possible differential includes PRES Evaluate Dr. Mehta/neurology. Continue aspirin 81 mg daily. Goal blood pressure between 110 120 systolic. Lumbar puncture 05/02 unremarkable Remains on levetiracetam 1000 mg twice daily for seizures Depression medication escitalopram 20 mg daily Hold gabapentin 60o mg twice daily Family medicine has patient scheduled lorazepam 1 mg every 6 hours Currently on propofol drip at 50 sunita grams per kilogram per minute for sedation while intubated Goal of RA SS -2 Daily sedation vacation starting today CV: Hypertensive emergency Hyper lipedema Peripheral vascular disease Noted 2D echocardiogram 05/01 revealed EF around 55-60 with no regional wall motion abnormalities with small pericardial effusion. Goal keep systolic blood pressure around 110-120 per neurology's recommendations Previously on hydralazine, clonidine scheduled. As needed hydralazine, Nitropaste and labetalol Start amlodipine 5 mg daily Nicardipine drip currently resume. On 5 mg an hour Continue atorvastatin 20 mg daily Carotid Dopplers revealed left stenosis 50-69%. Right less than 50%. Resp: Acute respiratory failure secondary angioedema [facility] 14/500/1.05/11/34 Ventilator bundle Albuterol/ipratropium aerosols every 4 hours with albuterol every 2 as needed dyspnea No spontaneous breathing trials until angioedema resolving Follow-up on post intubation chest x-ray and ABG Currently on scheduled diphenhydramine 50 mg IV every 6 hours stop date 05/04, famotidine 20 mg IV twice daily and received 1 dose of methylprednisolone succinate 125 mg x1 GI: Start tube feeding today after MRI abdomen. Glucerna 1.5 goal 60 cc an hour. Noted CT abdomen/pelvis revealed pancreatic mass. Will check MRI no pancreatic mass. Noted normal CA 19/9, CEA and CA 125 NG tube to low intermittent wall suction currently Famotidine for GI prophylaxis Docusate serum/senna 1 tablet twice daily for bowel regimen : Currently with [place] catheter. Endo: Diabetes mellitus type 2 Gout Sliding scale insulin with aspart insulin every 6 hours low regimen Accu-Cheks to maintain euglycemia TSH 0.5-4 Holding metformin and glimepiride. Renal: Creatinine currently within normal limits Monitor urine output Acute I's and O's Heme: Monitor CBC daily. Follow trends. No indication for transfusion of blood products at this time ID: Check sputum no growth to date Monitor for signs of hematology infection FEN: Acute hypokalemia -resolved Replace electrolytes as clinically indicated per ICU electrolyte protocol Currently on normal saline with 20 mEq of potassium chloride 100 cc an hour discontinued 05/05 MSK: Right [id number] amputation PT/OT evaluate and treat Access -Utilize peripheral IV. Central line if indicated Prophylaxis -GI -famotidine -DVT -SCD/heparin subcu Level 3 follow-up
[2018-05-06] MEDS ORDERED: Chlorothiazide Inj 500 MG Vial IV.PUSH ONE (12:45)
[2018-05-06] MEDS ORDERED: Potassium Chloride 25 MEQ Effervescent Tablet PO ONE ×2 (12:45→14:30)
[2018-05-06] MEDS ORDERED: Mag Sulf 1 gm/100 ml Premix 100 ML IV.SIG ONE (15:00)
[2018-05-06] MEDS: hydrALAZINE HCl Inj 20 MG/ML Vial IV.PUSH PRN (15:58)
[2018-05-06] MEDS: hydrALAZINE 10 MG Tablet NG/OG PRN (16:40)
[2018-05-06] MEDS: Labetalol HCl Inj 100 MG/20 ML Vial IV.PUSH PRN ×4 (17:35→22:12)
--- NOTE | 2018-05-06 20:38 | P.PNNP ---
Subjective Interval history: Patient seen earlier in the afternoon, remain intubated. Physical Exam Vital signs: Vital Signs 05/05/18 20:42 05/05/18 20:45 05/05/18 21:00 Temperature Pulse Rate 77 78 80 Respiratory Rate 15 17 14 Blood Pressure 112/59 L 119/56 L Pulse Oximetry 97 97 97 05/05/18 21:15 05/05/18 21:30 05/05/18 21:45 Temperature Pulse Rate 81 84 83 Respiratory Rate 15 14 15 Blood Pressure 123/59 L 121/58 L 118/58 L Pulse Oximetry 97 97 97 05/05/18 22:00 05/05/18 22:15 05/05/18 22:30 Temperature Pulse Rate 80 80 81 Respiratory Rate 15 14 14 Blood Pressure 121/58 L 117/57 L 123/59 L Pulse Oximetry 97 97 97 05/05/18 22:45 05/05/18 23:00 05/05/18 23:15 Temperature Pulse Rate 80 79 79 Respiratory Rate 15 14 14 Blood Pressure 116/56 L 114/56 L 127/60 Pulse Oximetry 98 98 99 05/05/18 23:30 05/05/18 23:45 05/06/18 00:00 Temperature 99.4 F Pulse Rate 79 79 79 Respiratory Rate 15 28 H 16 Blood Pressure 117/56 L 119/58 L 118/58 L Pulse Oximetry 97 98 97 05/06/18 00:15 05/06/18 00:30 05/06/18 00:41 Temperature Pulse Rate 77 76 77 Respiratory Rate 20 14 14 Blood Pressure 118/56 L 116/55 L Pulse Oximetry 97 96 96 05/06/18 00:45 05/06/18 01:00 05/06/18 01:15 Temperature Pulse Rate 77 78 79 Respiratory Rate 18 14 14 Blood Pressure 114/56 L 106/54 L 107/53 L Pulse Oximetry 96 96 96 05/06/18 01:30 05/06/18 01:45 05/06/18 02:00 Temperature Pulse Rate 81 81 82 Respiratory Rate 14 14 14 Blood Pressure 115/59 L 114/58 L 116/59 L Pulse Oximetry 96 95 95 05/06/18 02:15 05/06/18 02:30 05/06/18 02:45 Temperature Pulse Rate 82 82 83 Respiratory Rate 14 14 14 Blood Pressure 116/57 L 115/57 L 115/57 L Pulse Oximetry 95 95 95 05/06/18 03:00 05/06/18 03:15 05/06/18 03:30 Temperature Pulse Rate 79 78 77 Respiratory Rate 14 14 14 Blood Pressure 111/55 L 111/54 L 101/50 L Pulse Oximetry 94 L 94 L 95 05/06/18 03:45 05/06/18 04:00 05/06/18 04:10 Temperature 98.8 F Pulse Rate 77 78 78 Respiratory Rate 14 14 14 Blood Pressure 111/56 L 114/57 L Pulse Oximetry 94 L 94 L 95 05/06/18 04:15 05/06/18 04:30 05/06/18 04:45 Temperature Pulse Rate 77 78 81 Respiratory Rate 14 14 6 L Blood Pressure 120/59 L 108/55 L 117/59 L Pulse Oximetry 96 94 L 95 05/06/18 05:00 05/06/18 05:15 05/06/18 05:30 Temperature Pulse Rate 82 78 77 Respiratory Rate 6 L 14 14 Blood Pressure 121/57 L 121/60 131/61 Pulse Oximetry 95 98 99 05/06/18 05:45 05/06/18 06:00 05/06/18 06:15 Temperature Pulse Rate 77 76 75 Respiratory Rate 14 14 14 Blood Pressure 118/60 116/55 L 120/58 L Pulse Oximetry 98 96 97 05/06/18 06:30 05/06/18 06:45 05/06/18 07:00 Temperature Pulse Rate 77 75 75 Respiratory Rate 14 14 14 Blood Pressure 125/60 118/56 L 115/56 L Pulse Oximetry 98 96 96 05/06/18 07:15 05/06/18 07:30 05/06/18 07:45 Temperature Pulse Rate 74 75 74 Respiratory Rate 14 14 14 Blood Pressure 123/59 L 121/59 L 121/57 L Pulse Oximetry 97 95 96 05/06/18 08:00 05/06/18 08:04 05/06/18 08:08 Temperature 98.8 F Pulse Rate 75 75 Respiratory Rate 14 14 14 Blood Pressure 116/58 L Pulse Oximetry 96 94 L 05/06/18 08:15 05/06/18 08:30 05/06/18 08:45 Temperature Pulse Rate 74 77 82 Respiratory Rate 14 17 27 H Blood Pressure 115/56 L 95/54 L 143/66 H Pulse Oximetry 95 96 95 05/06/18 09:00 05/06/18 09:15 05/06/18 09:30 Temperature Pulse Rate 87 92 H 91 H Respiratory Rate 27 H 34 H 14 Blood Pressure 139/65 137/65 133/63 Pulse Oximetry 95 95 96 05/06/18 09:45 05/06/18 09:55 05/06/18 10:00 Temperature Pulse Rate 88 88 89 Respiratory Rate 14 14 14 Blood Pressure 129/60 122/57 L 128/63 Pulse Oximetry 95 95 96 05/06/18 10:15 05/06/18 10:30 05/06/18 10:45 Temperature Pulse Rate 92 H 102 H 94 H Respiratory Rate 30 H 31 H 31 H Blood Pressure 137/66 139/70 132/66 Pulse Oximetry 95 95 95 05/06/18 10:58 05/06/18 10:59 05/06/18 11:00 Temperature Pulse Rate 97 H 94 H Respiratory Rate 30 H 28 H 29 H Blood Pressure 125/60 Pulse Oximetry 95 05/06/18 11:15 05/06/18 11:30 05/06/18 11:45 Temperature Pulse Rate 104 H 100 H 95 H Respiratory Rate 39 H 17 14 Blood Pressure 128/71 135/72 125/62 Pulse Oximetry 94 L 91 L 95 05/06/18 12:00 05/06/18 12:15 05/06/18 12:30 Temperature 98.3 F Pulse Rate 92 H 88 87 Respiratory Rate 14 14 14 Blood Pressure 122/59 L 120/58 L 129/62 Pulse Oximetry 96 97 97 05/06/18 12:45 05/06/18 13:00 05/06/18 13:15 Temperature Pulse Rate 88 91 H 89 Respiratory Rate 14 15 14 Blood Pressure 133/63 146/69 H 139/63 Pulse Oximetry 96 96 96 05/06/18 13:25 05/06/18 13:30 05/06/18 13:45 Temperature Pulse Rate 86 85 84 Respiratory Rate 14 14 14 Blood Pressure 133/60 139/63 139/62 Pulse Oximetry 96 96 96 05/06/18 14:00 05/06/18 14:15 05/06/18 14:30 Temperature Pulse Rate 85 82 81 Respiratory Rate 14 14 14 Blood Pressure 132/59 L 132/60 131/59 L Pulse Oximetry 96 96 97 05/06/18 14:45 05/06/18 15:00 05/06/18 15:15 Temperature Pulse Rate 80 83 82 Respiratory Rate 14 14 14 Blood Pressure 133/61 136/63 129/60 Pulse Oximetry 97 97 97 05/06/18 15:30 05/06/18 15:45 05/06/18 15:51 Temperature Pulse Rate 81 80 Respiratory Rate 14 14 14 Blood Pressure 125/56 L 130/60 Pulse Oximetry 97 97 100 05/06/18 16:00 05/06/18 16:15 05/06/18 16:30 Temperature 98.7 F Pulse Rate 81 86 90 Respiratory Rate 14 16 16 Blood Pressure 133/63 134/63 128/58 L Pulse Oximetry 100 95 95 05/06/18 16:45 05/06/18 17:00 05/06/18 17:15 Temperature Pulse Rate 88 90 88 Respiratory Rate 16 15 15 Blood Pressure 126/62 127/61 128/61 Pulse Oximetry 96 96 96 05/06/18 17:30 05/06/18 17:45 05/06/18 18:00 Temperature Pulse Rate 88 75 74 Respiratory Rate 18 15 15 Blood Pressure 135/62 116/57 L 114/57 L Pulse Oximetry 96 95 95 05/06/18 18:15 Temperature Pulse Rate 72 Respiratory Rate 15 Blood Pressure 112/56 L Pulse Oximetry 95 Intake & Output 05/06/18 05/06/18 05/07/18 06:59 18:59 06:59 Intake Total 2070 / 2070 1960 / 1960 250 / 250 Output Total 800 / 800 750 / 750 Balance 1270 / 1270 1210 / 1210 250 / 250 Weight 69.9 kg Intake: IV 1400 / 1400 1300 / 1300 250 / 250 Diprivan 1000 mg/100 ml Inj 1, 300 / 300 100 / 100 000 mg In 100 ml @ 5 MCG/KG/MIN 1.95 mls/hr IV.CONT TITRATE PRN Rx#:[id number] Cardene Inj 25 MG In NS Inj 240 1000 / 1000 1000 / 1000 250 / 250 ML @ 5 MG/HR 50 mls/hr IV.CONT TITRATE PRN Rx#:[id number] Magnesium Sulfate 1 gm/D5W 100 100 / 100 ml Premix 100 ML @ 100 mls/hr IV.SIG ONCE ONE Rx#:[id number] Keppra 1000 mg/100 mL Premix 100 / 100 100 / 100 100 ML @ 400 mls/hr IV.SIG Q12H YUKO Rx#:[id number] Tube Feeding 550 / 550 460 / 460 Tube Irrigant 120 / 120 200 / 200 Output: Urine 800 / 800 350 / 350 Stool 400 / 400 Other: # Voids 6 # Incontinent Voids 6 4 Date of Last Bowel Movement 05/06/18 05/06/18 Narrative: on vent and sedated. Neck: Supple, Lungs: Bilateral scattered rhonchi. Abd. Soft distended. Ext: Mild leg edema. - Urinary Catheter Management Straight Cath placed during this visit: no Assessment and Plan - Assessment (1) Acute respiratory failure Code(s): J96.00 - Acute respiratory failure, unspecified whether with hypoxia or hypercapnia Status: Acute (2) Angioedema Code(s): T78.3XXA - Angioneurotic edema, initial encounter Status: Acute Qualifiers: Encounter type: initial encounter Qualified Code(s): T78.3XXA - Angioneurotic edema, initial encounter (3) PRES (posterior reversible encephalopathy syndrome) Code(s): I67.83 - Posterior reversible encephalopathy syndrome Status: Acute (4) Anxiety Code(s): F41.9 - Anxiety disorder, unspecified Status: Acute (5) Dementia Code(s): F03.90 - Unspecified dementia without behavioral disturbance Status: Acute (6) HTN (hypertension) Code(s): I10 - Essential (primary) hypertension Status: Acute Qualifiers: Hypertension type: other secondary hypertension Qualified Code(s): I15.8 - Other secondary hypertension - Plan Patient is intubated with swelling of tongue and lips. BP need better control as per Neurology, to keep SBP 120 or less. BP is elevated, on hydralazine via OGT and IV. Also on Labetalol IV PRN. Also started on Amlodipine, BP is occ. slightly higher, Continue same meds. Creatinine has been normal. Neurology following.
[2018-05-07] MEDS: Propofol 1000 mg/100 ml Inj 1,000 MG/100 ML BOTTLE IV.CONT PRN ×3 (00:14→10:12)
[2018-05-07] MEDS: levETIRAcetam 1000mg/100mL Inj 100 ML IV.SIG SCH ×2 (00:14→12:07)
[2018-05-07] MEDS: Oral Hygiene Kit OROPHARYNG SCH ×4 (00:15→20:03)
[2018-05-07] MEDS: Artificial Tears Opth Drops 15 ML Bottle EACH EYE SCH ×3 (00:15→14:47)
[2018-05-07] MEDS: Labetalol HCl Inj 100 MG/20 ML Vial IV.PUSH PRN ×5 (00:23→06:17)
[2018-05-07] MEDS: Insulin NovoLOG Aspart Correctional Sugar Inj SQ SCH ×4 (00:50→18:04)
[2018-05-07] MEDS: niCARdipine Inj 25 MG in Sodium Chlor 0.9% Inj 240 ML IV.CONT PRN ×5 (02:56→13:42)
--- NOTE | 2018-05-07 09:23 | P.PNFP ---
Subjective Interval history: 68 yo female with dementia, DM, HTN admitted for hypertension related to catatonia (due likely to depression), now in ICU intubated due to angioedema. This morning is sedated. RN reports no concerns. RT at bedside notes she is now on CPAP trial, slightly tachypneic. <Brian TysonJordan S - 05/07/18 09:23> Results - Labs Result diagrams: 05/07/18 09:17 05/07/18 09:17 <Roxanna Magana - 05/07/18 11:40> Abnormal lab results 05/06/18 05/07/18 05/07/18 Range/Units 17:15 00:12 06:11 RBC (4.00-5.30) mil/mm3 Hgb (11.6-15.3) gm/dL Hct (35.0-46.0) % [place] % (Auto) (0.0-8.0) % Eos % (Auto) (0.0-4.0) % [place] # (Auto) (0.0-0.9) th/mm3 Eos # (Auto) (0.0-0.4) th/mm3 Sodium (136-145) meq/L Chloride (98-107) meq/L Carbon Dioxide (21.0-32.0) meq/L BUN (7-18) mg/dL Estimated GFR (>89) mL/min POC Glucose 265 H 227 H 195 H (68-110) mg/dl Random Glucose (74-106) mg/dL Calcium (8.5-10.1) mg/dL 05/07/18 05/07/18 Range/Units 09:17 09:17 RBC 3.48 L (4.00-5.30) mil/mm3 Hgb 10.9 L (11.6-15.3) gm/dL Hct 33.3 L (35.0-46.0) % [place] % (Auto) 12.8 H (0.0-8.0) % Eos % (Auto) 6.1 H (0.0-4.0) % [place] # (Auto) 1.3 H (0.0-0.9) th/mm3 Eos # (Auto) 0.6 H (0.0-0.4) th/mm3 Sodium 146 H (136-145) meq/L Chloride 121 H (98-107) meq/L Carbon Dioxide 17.8 L (21.0-32.0) meq/L BUN 29 H (7-18) mg/dL Estimated GFR 62 L (>89) mL/min POC Glucose (68-110) mg/dl Random Glucose 185 H (74-106) mg/dL Calcium 7.7 L (8.5-10.1) mg/dL Short CBC 05/07/18 Range/Units 09:17 WBC 10.3 (4.0-11.0) th/mm3 Hgb 10.9 L (11.6-15.3) gm/dL Hct 33.3 L (35.0-46.0) % Plt Count 285 (150-450) th/mm3 BMP 05/07/18 09:17 Sodium 146 H Potassium 4.3 Chloride 121 H Carbon Dioxide 17.8 L BUN 29 H Creatinine 0.91 Calcium 7.7 L <ChinoRoxanna Ad - 05/07/18 11:40> Abnormal lab results 05/06/18 05/06/18 05/06/18 Range/Units 08:52 11:14 17:15 RBC 3.80 L (4.00-5.30) mil/mm3 [place] % (Auto) 10.0 H (0.0-8.0) % Eos % (Auto) 4.4 H (0.0-4.0) % [place] # (Auto) 1.1 H (0.0-0.9) th/mm3 Eos # (Auto) 0.5 H (0.0-0.4) th/mm3 POC Glucose 163 H 265 H (68-110) mg/dl 05/07/18 05/07/18 Range/Units 00:12 06:11 RBC (4.00-5.30) mil/mm3 [place] % (Auto) (0.0-8.0) % Eos % (Auto) (0.0-4.0) % [place] # (Auto) (0.0-0.9) th/mm3 Eos # (Auto) (0.0-0.4) th/mm3 POC Glucose 227 H 195 H (68-110) mg/dl Short CBC 05/06/18 Range/Units 08:52 WBC 10.7 (4.0-11.0) th/mm3 Hgb 11.9 (11.6-15.3) gm/dL Hct 35.8 (35.0-46.0) % Plt Count 304 (150-450) th/mm3 <Torres Jordan Tyson S - 05/07/18 09:23> Physical Exam Vital signs: Vital Signs 05/06/18 11:45 05/06/18 12:00 05/06/18 12:15 Temperature 98.3 F Pulse Rate 95 H 92 H 88 Respiratory Rate 14 14 14 Blood Pressure 125/62 122/59 L 120/58 L Pulse Oximetry 95 96 97 05/06/18 12:30 05/06/18 12:45 05/06/18 13:00 Temperature Pulse Rate 87 88 91 H Respiratory Rate 14 14 15 Blood Pressure 129/62 133/63 146/69 H Pulse Oximetry 97 96 96 05/06/18 13:15 05/06/18 13:25 05/06/18 13:30 Temperature Pulse Rate 89 86 85 Respiratory Rate 14 14 14 Blood Pressure 139/63 133/60 139/63 Pulse Oximetry 96 96 96 05/06/18 13:45 05/06/18 14:00 05/06/18 14:15 Temperature Pulse Rate 84 85 82 Respiratory Rate 14 14 14 Blood Pressure 139/62 132/59 L 132/60 Pulse Oximetry 96 96 96 05/06/18 14:30 05/06/18 14:45 05/06/18 15:00 Temperature Pulse Rate 81 80 83 Respiratory Rate 14 14 14 Blood Pressure 131/59 L 133/61 136/63 Pulse Oximetry 97 97 97 05/06/18 15:15 05/06/18 15:30 05/06/18 15:45 Temperature Pulse Rate 82 81 80 Respiratory Rate 14 14 14 Blood Pressure 129/60 125/56 L 130/60 Pulse Oximetry 97 97 97 05/06/18 15:51 05/06/18 16:00 05/06/18 16:15 Temperature 98.7 F Pulse Rate 81 86 Respiratory Rate 14 14 16 Blood Pressure 133/63 134/63 Pulse Oximetry 100 100 95 05/06/18 16:30 05/06/18 16:45 05/06/18 17:00 Temperature Pulse Rate 90 88 90 Respiratory Rate 16 16 15 Blood Pressure 128/58 L 126/62 127/61 Pulse Oximetry 95 96 96 05/06/18 17:15 12/31/18 17:30 05/06/18 17:45 Temperature Pulse Rate 88 88 75 Respiratory Rate 15 18 15 Blood Pressure 128/61 135/62 116/57 L Pulse Oximetry 96 96 95 05/06/18 18:00 05/06/18 18:15 05/06/18 20:00 Temperature 98.8 F Pulse Rate 74 72 69 Respiratory Rate 15 15 Blood Pressure 114/57 L 112/56 L Pulse Oximetry 95 95 05/06/18 21:15 05/06/18 21:30 05/06/18 21:42 Temperature Pulse Rate 71 72 Respiratory Rate 18 16 17 Blood Pressure 127/62 117/60 Pulse Oximetry 94 L 94 L 95 05/06/18 21:44 05/06/18 21:45 05/06/18 22:00 Temperature Pulse Rate 74 74 75 Respiratory Rate 17 16 15 Blood Pressure 128/65 127/60 Pulse Oximetry 94 L 94 L 05/06/18 22:15 05/06/18 22:27 05/06/18 22:30 Temperature Pulse Rate 75 75 74 Respiratory Rate 15 15 15 Blood Pressure 123/56 L 112/58 L 114/54 L Pulse Oximetry 94 L 94 L 94 L 05/06/18 22:45 05/06/18 23:00 05/06/18 23:04 Temperature Pulse Rate 72 71 70 Respiratory Rate 14 14 14 Blood Pressure 112/54 L 102/54 L 107/56 L Pulse Oximetry 94 L 94 L 94 L 05/06/18 23:15 05/06/18 23:30 05/06/18 23:45 Temperature Pulse Rate 69 71 73 Respiratory Rate 16 16 18 Blood Pressure 106/58 L 116/61 117/60 Pulse Oximetry 94 L 95 95 05/07/18 00:00 05/07/18 00:15 05/07/18 00:26 Temperature 100.5 F H Pulse Rate 75 75 74 Respiratory Rate 15 15 18 Blood Pressure 126/61 132/58 L 134/60 Pulse Oximetry 95 95 95 05/07/18 00:30 05/07/18 00:36 05/07/18 00:40 Temperature Pulse Rate 75 76 76 Respiratory Rate 17 18 17 Blood Pressure 121/58 L 119/57 L Pulse Oximetry 95 95 94 L 05/07/18 00:50 05/07/18 01:00 05/07/18 01:15 Temperature Pulse Rate 75 74 72 Respiratory Rate 17 16 14 Blood Pressure 119/59 L 113/56 L 109/57 L Pulse Oximetry 94 L 94 L 94 L 05/07/18 01:30 05/07/18 01:45 05/07/18 02:00 Temperature Pulse Rate 69 71 71 Respiratory Rate 14 14 14 Blood Pressure 111/55 L 119/58 L 120/60 Pulse Oximetry 94 L 94 L 94 L 05/07/18 02:15 05/07/18 02:30 05/07/18 02:45 Temperature Pulse Rate 70 70 72 Respiratory Rate 14 15 14 Blood Pressure 119/59 L 123/60 125/56 L Pulse Oximetry 95 95 95 05/07/18 03:00 05/07/18 03:15 05/07/18 03:30 Temperature Pulse Rate 71 72 73 Respiratory Rate 16 16 14 Blood Pressure 133/62 123/55 L 119/59 L Pulse Oximetry 97 96 96 05/07/18 03:45 05/07/18 03:57 05/07/18 04:00 Temperature 99.4 F Pulse Rate 71 70 71 Respiratory Rate 14 14 14 Blood Pressure 118/56 L 119/57 L Pulse Oximetry 96 97 96 05/07/18 04:15 05/07/18 04:30 05/07/18 04:45 Temperature Pulse Rate 71 72 76 Respiratory Rate 14 16 16 Blood Pressure 120/55 L 118/58 L 122/60 Pulse Oximetry 96 96 96 05/07/18 05:00 05/07/18 05:16 05/07/18 05:30 Temperature Pulse Rate 75 71 70 Respiratory Rate 17 26 H 14 Blood Pressure 120/55 L 118/59 L 118/59 L Pulse Oximetry 96 97 95 05/07/18 05:45 05/07/18 06:00 05/07/18 06:15 Temperature Pulse Rate 68 71 72 Respiratory Rate 16 15 15 Blood Pressure 117/56 L 120/58 L 127/60 Pulse Oximetry 96 95 96 05/07/18 06:30 05/07/18 06:45 05/07/18 06:55 Temperature Pulse Rate 71 71 71 Respiratory Rate 15 14 14 Blood Pressure 129/62 127/59 L 118/58 L Pulse Oximetry 96 96 96 05/07/18 07:00 05/07/18 07:15 05/07/18 07:30 Temperature Pulse Rate 70 69 70 Respiratory Rate 14 14 14 Blood Pressure 118/56 L 115/55 L 120/58 L Pulse Oximetry 96 96 96 05/07/18 08:52 Temperature Pulse Rate 72 Respiratory Rate 27 H Blood Pressure Pulse Oximetry 94 L Intake & Output 05/06/18 05/07/18 05/07/18 18:59 06:59 18:59 Intake Total 1960 / 1960 2034 / 2034 700 / 700 Output Total 750 / 750 850 / 850 Balance 1210 / 1210 1184 / 1184 700 / 700 Weight 70.7 kg Intake: IV 1300 / 1300 1200 / 1200 700 / 700 Diprivan 1000 mg/100 ml Inj 1, 100 / 100 200 / 200 100 / 100 000 mg In 100 ml @ 5 MCG/KG/MIN 1.95 mls/hr IV.CONT TITRATE PRN Rx#:[id number] Cardene Inj 25 MG In NS Inj 240 1000 / 1000 1000 / 1000 500 / 500 ML @ 5 MG/HR 50 mls/hr IV.CONT TITRATE PRN Rx#:[id number] Magnesium Sulfate 1 gm/D5W 100 100 / 100 ml Premix 100 ML @ 100 mls/hr IV.SIG ONCE ONE Rx#:[id number] Keppra 1000 mg/100 mL Premix 100 / 100 100 / 100 100 ML @ 400 mls/hr IV.SIG Q12H YUKO Rx#:[id number] Tube Feeding 460 / 460 714 / 714 Tube Irrigant 200 / 200 120 / 120 Output: Urine 350 / 350 300 / 300 Stool 400 / 400 550 / 550 Other: # Voids 1 # Incontinent Voids 4 Date of Last Bowel Movement 05/06/18 05/07/18 <Roxanna Magana - 05/07/18 11:40> Vital Signs 05/06/18 09:30 05/06/18 09:45 05/06/18 09:55 Temperature Pulse Rate 91 H 88 88 Respiratory Rate 14 14 14 Blood Pressure 133/63 129/60 122/57 L Pulse Oximetry 96 95 95 05/06/18 10:00 05/06/18 10:15 05/06/18 10:30 Temperature Pulse Rate 89 92 H 102 H Respiratory Rate 14 30 H 31 H Blood Pressure 128/63 137/66 139/70 Pulse Oximetry 96 95 95 05/06/18 10:45 05/06/18 10:58 05/06/18 10:59 Temperature Pulse Rate 94 H 97 H Respiratory Rate 31 H 30 H 28 H Blood Pressure 132/66 Pulse Oximetry 95 05/06/18 11:00 05/06/18 11:15 05/06/18 11:30 Temperature Pulse Rate 94 H 104 H 100 H Respiratory Rate 29 H 39 H 17 Blood Pressure 125/60 128/71 135/72 Pulse Oximetry 95 94 L 91 L 05/06/18 11:45 05/06/18 12:00 05/06/18 12:15 Temperature 98.3 F Pulse Rate 95 H 92 H 88 Respiratory Rate 14 14 14 Blood Pressure 125/62 122/59 L 120/58 L Pulse Oximetry 95 96 97 05/06/18 12:30 05/06/18 12:45 05/06/18 13:00 Temperature Pulse Rate 87 88 91 H Respiratory Rate 14 14 15 Blood Pressure 129/62 133/63 146/69 H Pulse Oximetry 97 96 96 05/06/18 13:15 05/06/18 13:25 05/06/18 13:30 Temperature Pulse Rate 89 86 85 Respiratory Rate 14 14 14 Blood Pressure 139/63 133/60 139/63 Pulse Oximetry 96 96 96 05/06/18 13:45 05/06/18 14:00 05/06/18 14:15 Temperature Pulse Rate 84 85 82 Respiratory Rate 14 14 14 Blood Pressure 139/62 132/59 L 132/60 Pulse Oximetry 96 96 96 05/06/18 14:30 05/06/18 14:45 05/06/18 15:00 Temperature Pulse Rate 81 80 83 Respiratory Rate 14 14 14 Blood Pressure 131/59 L 133/61 136/63 Pulse Oximetry 97 97 97 05/06/18 15:15 05/06/18 15:30 05/06/18 15:45 Temperature Pulse Rate 82 81 80 Respiratory Rate 14 14 14 Blood Pressure 129/60 125/56 L 130/60 Pulse Oximetry 97 97 97 05/06/18 15:51 05/06/18 16:00 05/06/18 16:15 Temperature 98.7 F Pulse Rate 81 86 Respiratory Rate 14 14 16 Blood Pressure 133/63 134/63 Pulse Oximetry 100 100 95 05/06/18 16:30 05/06/18 16:45 05/06/18 17:00 Temperature Pulse Rate 90 88 90 Respiratory Rate 16 16 15 Blood Pressure 128/58 L 126/62 127/61 Pulse Oximetry 95 96 96 05/06/18 17:15 05/06/18 17:30 05/06/18 17:45 Temperature Pulse Rate 88 88 75 Respiratory Rate 15 18 15 Blood Pressure 128/61 135/62 116/57 L Pulse Oximetry 96 96 95 05/06/18 18:00 05/06/18 18:15 05/06/18 20:00 Temperature 98.8 F Pulse Rate 74 72 69 Respiratory Rate 15 15 Blood Pressure 114/57 L 112/56 L Pulse Oximetry 95 95 05/06/18 21:15 05/06/18 21:30 05/06/18 21:42 Temperature Pulse Rate 71 72 Respiratory Rate 18 16 17 Blood Pressure 127/62 117/60 Pulse Oximetry 94 L 94 L 95 05/06/18 21:44 05/06/18 21:45 05/06/18 22:00 Temperature Pulse Rate 74 74 75 Respiratory Rate 17 16 15 Blood Pressure 128/65 127/60 Pulse Oximetry 94 L 94 L 05/06/18 22:15 05/06/18 22:27 05/06/18 22:30 Temperature Pulse Rate 75 75 74 Respiratory Rate 15 15 15 Blood Pressure 123/56 L 112/58 L 114/54 L Pulse Oximetry 94 L 94 L 94 L 05/06/18 22:45 05/06/18 23:00 05/06/18 23:04 Temperature Pulse Rate 72 71 70 Respiratory Rate 14 14 14 Blood Pressure 112/54 L 102/54 L 107/56 L Pulse Oximetry 94 L 94 L 94 L 05/06/18 23:15 05/06/18 23:30 05/06/18 23:45 Temperature Pulse Rate 69 71 73 Respiratory Rate 16 16 18 Blood Pressure 106/58 L 116/61 117/60 Pulse Oximetry 94 L 95 95 05/07/18 00:00 05/07/18 00:15 05/07/18 00:26 Temperature 100.5 F H Pulse Rate 75 75 74 Respiratory Rate 15 15 18 Blood Pressure 126/61 132/58 L 134/60 Pulse Oximetry 95 95 95 05/07/18 00:30 05/07/18 00:36 05/07/18 00:40 Temperature Pulse Rate 75 76 76 Respiratory Rate 17 18 17 Blood Pressure 121/58 L 119/57 L Pulse Oximetry 95 95 94 L 05/07/18 00:50 05/07/18 01:00 05/07/18 01:15 Temperature Pulse Rate 75 74 72 Respiratory Rate 17 16 14 Blood Pressure 119/59 L 113/56 L 109/57 L Pulse Oximetry 94 L 94 L 94 L 05/07/18 01:30 05/07/18 01:45 05/07/18 02:00 Temperature Pulse Rate 69 71 71 Respiratory Rate 14 14 14 Blood Pressure 111/55 L 119/58 L 120/60 Pulse Oximetry 94 L 94 L 94 L 05/07/18 02:15 05/07/18 02:30 05/07/18 02:45 Temperature Pulse Rate 70 70 72 Respiratory Rate 14 15 14 Blood Pressure 119/59 L 123/60 125/56 L Pulse Oximetry 95 95 95 05/07/18 03:00 05/07/18 03:15 05/07/18 03:30 Temperature Pulse Rate 71 72 73 Respiratory Rate 16 16 14 Blood Pressure 133/62 123/55 L 119/59 L Pulse Oximetry 97 96 96 05/07/18 03:45 05/07/18 03:57 05/07/18 04:00 Temperature 99.4 F Pulse Rate 71 70 71 Respiratory Rate 14 14 14 Blood Pressure 118/56 L 119/57 L Pulse Oximetry 96 97 96 05/07/18 04:15 05/07/18 04:30 05/07/18 04:45 Temperature Pulse Rate 71 72 76 Respiratory Rate 14 16 16 Blood Pressure 120/55 L 118/58 L 122/60 Pulse Oximetry 96 96 96 05/07/18 05:00 05/07/18 05:16 05/07/18 05:30 Temperature Pulse Rate 75 71 70 Respiratory Rate 17 26 H 14 Blood Pressure 120/55 L 118/59 L 118/59 L Pulse Oximetry 96 97 95 05/07/18 05:45 05/07/18 06:00 05/07/18 06:15 Temperature Pulse Rate 68 71 72 Respiratory Rate 16 15 15 Blood Pressure 117/56 L 120/58 L 127/60 Pulse Oximetry 96 95 96 05/07/18 06:30 05/07/18 06:45 05/07/18 06:55 Temperature Pulse Rate 71 71 71 Respiratory Rate 15 14 14 Blood Pressure 129/62 127/59 L 118/58 L Pulse Oximetry 96 96 96 05/07/18 07:00 05/07/18 07:15 05/07/18 07:30 Temperature Pulse Rate 70 69 70 Respiratory Rate 14 14 14 Blood Pressure 118/56 L 115/55 L 120/58 L Pulse Oximetry 96 96 96 05/07/18 08:52 Temperature Pulse Rate 72 Respiratory Rate 27 H Blood Pressure Pulse Oximetry 94 L Intake & Output 05/06/18 05/07/18 05/07/18 18:59 06:59 18:59 Intake Total 1960 / 1960 2033 / 2033 100 / 100 Output Total 750 / 750 850 / 850 Balance 1210 / 1210 1184 / 1184 100 / 100 Weight 70.7 kg Intake: IV 1300 / 1300 1200 / 1200 100 / 100 Diprivan 1000 mg/100 ml Inj 1, 100 / 100 200 / 200 000 mg In 100 ml @ 5 MCG/KG/MIN 1.95 mls/hr IV.CONT TITRATE PRN Rx#:[id number] Cardene Inj 25 MG In NS Inj 240 1000 / 1000 1000 / 1000 ML @ 5 MG/HR 50 mls/hr IV.CONT TITRATE PRN Rx#:[id number] Magnesium Sulfate 1 gm/D5W 100 100 / 100 ml Premix 100 ML @ 100 mls/hr IV.SIG ONCE ONE Rx#:[id number] Keppra 1000 mg/100 mL Premix 100 / 100 100 / 100 100 ML @ 400 mls/hr IV.SIG Q12H YUKO Rx#:[id number] Tube Feeding 460 / 460 714 / 714 Tube Irrigant 200 / 200 120 / 120 Output: Urine 350 / 350 300 / 300 Stool 400 / 400 550 / 550 Other: # Voids 1 # Incontinent Voids 4 Date of Last Bowel Movement 05/06/18 05/07/18 <Jordan Schrader S - 05/07/18 09:23> - Constitutional no acute distress <Jordan Schrader S - 05/07/18 09:23> Comments: intubated <Jordan Schrader S - 05/07/18 09:23> - Routine HEENT Exam Head: Present: normocephalic, atraumatic <Jordan Schrader S - 05/07/18 09:23> ENT: Present: mucous membranes moist <Jordan Schrader - 05/07/18 09:23> - Routine Respiratory Exam Present: CTA bilaterally. Absent: accessory muscle use, wheezes, crackles < Jordan Schrader 05/07/18 09:23> - Routine Cardiovascular Exam Present: RRR, S1, S2. Absent: murmur <Jordan Schrader 05/07/18 09:23> - Routine Abdominal Exam Present: soft <Jordan Schrader - 05/07/18 09:23> - Routine Extremities Exam Absent: cyanosis, edema <Jordan Schrader - 05/07/18 09:23> Comments: s/p RLE above knee amputation <Jordan Schrader 05/07/18 09:23> - Urinary Catheter Management Straight Cath placed during this visit: no <Roxanna Magana - 05/07/18 11:40> no <Jordan Schrader - 05/07/18 09:23> Assessment and Plan - Assessment (1) Acute respiratory failure Code(s): J96.00 - Acute respiratory failure, unspecified whether with hypoxia or hypercapnia Status: Acute (2) Angioedema Code(s): T78.3XXA - Angioneurotic edema, initial encounter Status: Acute (3) Catatonia associated with another mental disorder Code(s): F06.1 - Catatonic disorder due to known physiological condition Status: Acute (4) PRES (posterior reversible encephalopathy syndrome) Code(s): I67.83 - Posterior reversible encephalopathy syndrome Status: Acute (5) HTN (hypertension) Code(s): I10 - Essential (primary) hypertension Status: Acute (6) Seizures Code(s): R56.9 - Unspecified convulsions Status: Acute (7) Hyperlipidemia Code(s): E78.5 - Hyperlipidemia, unspecified Status: Chronic (8) Diabetes Code(s): E11.9 - Type 2 diabetes mellitus without complications Status: Chronic (9) Diarrhea Code(s): R19.7 - Diarrhea, unspecified Status: Resolved (10) Clavicle fracture Code(s): S42.009A - Fracture of unspecified part of unspecified clavicle, initial encounter for closed fracture Status: Acute (11) Nutrition, metabolism, and development symptoms Code(s): R63.8 - Other symptoms and signs concerning food and fluid intake Status: Acute <Roxanna Magana M - 05/07/18 11:40> (1) Acute respiratory failure Code(s): J96.00 - Acute respiratory failure, unspecified whether with hypoxia or hypercapnia Status: Acute (2) Angioedema Code(s): T78.3XXA - Angioneurotic edema, initial encounter Status: Acute (3) Catatonia associated with another mental disorder Code(s): F06.1 - Catatonic disorder due to known physiological condition Status: Acute (4) PRES (posterior reversible encephalopathy syndrome) Code(s): I67.83 - Posterior reversible encephalopathy syndrome Status: Acute (5) HTN (hypertension) Code(s): I10 - Essential (primary) hypertension Status: Acute (6) Seizures Code(s): R56.9 - Unspecified convulsions Status: Acute (7) Hyperlipidemia Code(s): E78.5 - Hyperlipidemia, unspecified Status: Chronic (8) Diabetes Code(s): E11.9 - Type 2 diabetes mellitus without complications Status: Chronic (9) Diarrhea Code(s): R19.7 - Diarrhea, unspecified Status: Resolved (10) Clavicle fracture Code(s): S42.009A - Fracture of unspecified part of unspecified clavicle, initial encounter for closed fracture Status: Acute (11) Nutrition, metabolism, and development symptoms Code(s): R63.8 - Other symptoms and signs concerning food and fluid intake Status: Acute <Jordan Schrader S - 05/07/18 09:16> - Assessment and Plan 68 yo female with dementia, HTN, DM admitted with: Catatonia Medical work-up has been negative except for PRES. Given that her altered mental status preceded her hypertension it is likely that the root cause of her altered mental state is catatonia. She does have a component of PRES by MRI but this is most likely due to hypertension caused by catatonia rather than primary hypertension leading to encephalopathy, especially since her mental status changes preceded the MRI findings that suggested PRES. CBC and CK within normal limits; no signs of NMS ABG essentially normal Ammonia very slightly elevated, unlikely to be etiology of her mental status LATONYA screen positive, titer pending RF negative RPR negative ESR normal * Continue Lexapro and Seroquel * Ativan stopped due to hypotension, respiratory failure from angioedema * Psychiatry consulted, appreciate assistance * Only treatment likely to improve her depression/catatonia is ECT - ongoing discussion to make arrangements to transfer her to a facility that performs ECT , however she is not stable for transfer at the moment. * CT abdomen/pelvis showed questionable pancreatic mass, ruled out by MRI * Normal CA-19/9, CEA and CA-125 * Manage hypertension as noted below Acute Respiratory Failure due to angioedema Now intubated, on CPAP trial * CCM consulted, appreciate assistance * Intubated 05/03 * Completed treatment with H1/H2 anayeli and steroid * Duonebs Q4H * Hopeful for extubation in the next day or so as angioedema resolves and breathing trials started PRES MRI findings suggestive of possible PRES * Neurology following, appreciate assistance * had improved neurologically as of 05/06 * Check paraneoplastic labs * Control BP as below Hypertension BP still intermittently elevated likely related to catatonia Difficulty taking PO meds due to fluctuating mental status * Due to PRES needs tighter BP control per neurology: goal SBP 110-120 * Continue nicardipine drip titrated to target BP < 120/90 * Amlodipine 5mg added by nephrology, appreciate assistance * Hydralazine, Nitropaste and labetalol as needed for BP control * After extubation can work on titrating medications PO and transitioning to med /surg care in hopes of getting stable for transfer to ECT facility Seizure Disorder Now with possible repeat seizure vs (more likely) catalepsy from catatonia EEG with nonspecific encephalopathy MRI/MRA unremarkable except for ?PRES as noted LP performed 05/02/18 - chemistries / cultures normal so far * Neurology on board, appreciate assistance * Continue Keppra to 1000 mg IV BID * Control BP as part of PRES management * Treat catatonia as above Diabetes mellitus BG at hospital goal now * Check sugar Q6H now that she is on continuous tube feedings * Holding metformin for now * Low dose SSI Hyperlipidemia * Continue home atorvastatin Diarrhea C difficile negative * Most likely normal due to tube feeds and patient being NPO before tube feeds were initiated * Continue to monitor * Rectal tube currently for comfort, ulcer prevention Right [id number] amputation PT/OT evaluate and treat once more able to cooperate Clavicle Fracture, right RUE neurovascularly intact, no deformity noted * Monitor clinically * WBAT RUE Fluids: Tube feeds and drips only, no running IVF Diet: Tube feed only at the moment * Consulted tongue binder, appreciate recs * Glucerna 1.5 @ 60 mL/hr * ST can reevaluate once extubated for likely resumption of her diet GI: Famotidine Docusate serum/senna 1 tablet twice daily for bowel regimen DVT: Heparin BID ICU electrolyte replacement protocol <Jordan Schrader S - 05/07/18 09:23> Discharge Planning: Pending improvement of respiratory status, neurologic work- up. Once extubated and BP stable on oral agents, likely would benefit from ECT; pending psychiatry assistance and neurology clearance. <Brian Jordan Tyson S - 05/07/18 09:23> - Attending Attestation The exam, history, and the medical decision-making described in the above note were completed with the assistance of the resident physician. I reviewed and agree with the findings presented. I attest that I had a [id number] encounter with the patient on the same day, and personally performed and documented my assessment and findings in the medical record. discussed this pt with both Psychiatry and Neurology. Her labile BPs are due to her catatonia. Per Neurology, if she improves and continues to improve clinically, ECT should be delayed. A decision will have to be made regarding her stability hemodynamically. per Psychiatry, the PRES is not a contraindication to ECT and pts get amazingly better quickly with catatonia where their BPs are normal and the autonomic instability is gone as well as the mental status and depression. the BPs are the probable reason she developed PRES and the cure of that instability would be wonderful. per her nurse, the drip for her HTN is being decreased. if she has stable and better BPs than she should continue to improve with the PRES. Per Neurology, it can take a month for the PRES to resolve. will just have to wait until she is off her vent to see how she is doing overall. <Roxanna Magana M - 05/07/18 11:40> <TorresJordan Fontana S - Last Filed: 05/07/18 09:16> (2) Angioedema Qualifiers: Encounter type: initial encounter Qualified Code(s): T78.3XXA - Angioneurotic edema, initial encounter (5) HTN (hypertension) Qualifiers: Hypertension type: other secondary hypertension Qualified Code(s): I15.8 - Other secondary hypertension (7) Hyperlipidemia Qualifiers: Hyperlipidemia type: pure hypercholesterolemia Qualified Code(s): E78.00 - Pure hypercholesterolemia, unspecified; E78.0 - Pure hypercholesterolemia (8) Diabetes Qualifiers: Diabetes mellitus type: type 2 Diabetes mellitus long term care pharmacist insulin use: unspecified half-way insulin use status Diabetes mellitus complication status : with circulatory complication Diabetes mellitus complication detail: with peripheral angiopathy without gangrene Qualified Code(s): E11.51 - Type 2 diabetes mellitus with diabetic peripheral angiopathy without gangrene (10) Clavicle fracture Qualifiers: Encounter type: subsequent encounter Fracture type: closed Laterality: right <Roxanna Magana M - Last Filed: 05/07/18 11:40> (2) Angioedema Qualifiers: Encounter type: initial encounter Qualified Code(s): T78.3XXA - Angioneurotic edema, initial encounter (5) HTN (hypertension) Qualifiers: Hypertension type: other secondary hypertension Qualified Code(s): I15.8 - Other secondary hypertension (7) Hyperlipidemia Qualifiers: Hyperlipidemia type: pure hypercholesterolemia Qualified Code(s): E78.00 - Pure hypercholesterolemia, unspecified; E78.0 - Pure hypercholesterolemia (8) Diabetes Qualifiers: Diabetes mellitus type: type 2 Diabetes mellitus long term care pharmacist insulin use: unspecified half-way insulin use status Diabetes mellitus complication status : with circulatory complication Diabetes mellitus complication detail: with peripheral angiopathy without gangrene Qualified Code(s): E11.51 - Type 2 diabetes mellitus with diabetic peripheral angiopathy without gangrene (10) Clavicle fracture Qualifiers: Encounter type: subsequent encounter Fracture type: closed Laterality: right <Torres Jordan Tyson S - Last Filed: 05/07/18 09:16> (2) Angioedema Qualifiers: Encounter type: initial encounter Qualified Code(s): T78.3XXA - Angioneurotic edema, initial encounter (5) HTN (hypertension) Qualifiers: Hypertension type: other secondary hypertension Qualified Code(s): I15.8 - Other secondary hypertension (7) Hyperlipidemia Qualifiers: Hyperlipidemia type: pure hypercholesterolemia Qualified Code(s): E78.00 - Pure hypercholesterolemia, unspecified; E78.0 - Pure hypercholesterolemia (8) Diabetes Qualifiers: Diabetes mellitus type: type 2 Diabetes mellitus half-way insulin use: unspecified long term care pharmacist insulin use status Diabetes mellitus complication status : with circulatory complication Diabetes mellitus complication detail: with peripheral angiopathy without gangrene Qualified Code(s): E11.51 - Type 2 diabetes mellitus with diabetic peripheral angiopathy without gangrene (10) Clavicle fracture Qualifiers: Encounter type: subsequent encounter Fracture type: closed Laterality: right <Roxanna Magana M - Last Filed: 05/07/18 11:40> (2) Angioedema Qualifiers: Encounter type: initial encounter Qualified Code(s): T78.3XXA - Angioneurotic edema, initial encounter (5) HTN (hypertension) Qualifiers: Hypertension type: other secondary hypertension Qualified Code(s): I15.8 - Other secondary hypertension (7) Hyperlipidemia Qualifiers: Hyperlipidemia type: pure hypercholesterolemia Qualified Code(s): E78.00 - Pure hypercholesterolemia, unspecified; E78.0 - Pure hypercholesterolemia (8) Diabetes Qualifiers: Diabetes mellitus type: type 2 Diabetes mellitus half-way insulin use: unspecified half-way insulin use status Diabetes mellitus complication status : with circulatory complication Diabetes mellitus complication detail: with peripheral angiopathy without gangrene Qualified Code(s): E11.51 - Type 2 diabetes mellitus with diabetic peripheral angiopathy without gangrene (10) Clavicle fracture Qualifiers: Encounter type: subsequent encounter Fracture type: closed Laterality: right
[2018-05-07] MEDS: Chlorhexidine 0.12% Oral Kit 15 ML UDC OROPHARYNG SCH ×3 (09:39→20:42)
[2018-05-07] MEDS: Senna/Docusate Sodium 8.6/50 MG Tablet PO SCH ×2 (09:41→20:45)
[2018-05-07] MEDS: amLODIPine 5 MG Tablet PO SCH (09:41)
[2018-05-07] MEDS: Famotidine PF Inj 20 MG/2 ML Vial IV.PUSH SCH ×2 (09:43→20:44)
[2018-05-07] MEDS: Heparin - SQ 10,000 UNITS/ML Vial SQ SCH ×2 (09:43→20:43)
[2018-05-07 09:44] LABS: Baso # (Auto) 0.1 th/mm3 (0.0-0.2); Baso % (Auto) 0.9 % (0.0-2.0); Eos # (Auto) 0.6 th/mm3 (0.0-0.4); Eos % (Auto) 6.1 % (0.0-4.0); Hematocrit 33.3 % (35.0-46.0); Hemoglobin 10.9 gm/dL (11.6-15.3); Lymph # (Auto) 1.8 th/mm3 (1.0-4.8); Lymph % (Auto) 17.9 % (9.0-44.0); Mean Corpuscular HGB Conc 32.6 % (32.0-36.0); Mean Corpuscular Hemoglobin 31.2 pg (27.0-34.0); Mean Corpuscular Volume 95.5 fL (80.0-100.0); Mean Platelet Volume 9.2 fL (7.0-11.0); Mono # (Auto) 1.3 th/mm3 (0.0-0.9); Mono % (Auto) 12.8 % (0.0-8.0); Neut # (Auto) 6.4 th/mm3 (1.8-7.7); Neut % (Auto) 62.3 % (16.0-70.0); Platelet Count 285 th/mm3 (150-450); Red Blood Count 3.48 mil/mm3 (4.00-5.30); White Blood Count 10.3 th/mm3 (4.0-11.0)
[2018-05-07 10:11] LABS: Calcium 7.7 mg/dL (8.5-10.1); Carbon Dioxide 17.8 meq/L (21.0-32.0); Potassium 4.3 meq/L (3.5-5.1)
--- NOTE | 2018-05-07 11:29 | P.PNNEU ---
Subjective Active Medications: Active Medications Acetaminophen (Tylenol Liq) 650 mg NG/OG Q6H PRN PRN Reason: PAIN 1-10 AND/OR FEVER >101F Al Hydroxide/Mg Hydroxide (Milk Of Magnesia Liq) 30 ml PO Q12H PRN PRN Reason: Mild Constipation Albuterol (Duoneb Neb (Eloy)) 1 ampul NEB Q4HR NEB [facility] Last Admin: 05/07/18 08:51 Dose: 1 ampul Albuterol (Albuterol Neb (Prn)) 2.5 mg NEB Q2HR NEB PRN PRN Reason: DYSPNEA Amlodipine Besylate (Norvasc) 5 mg PO DAILY [facility] Last Admin: 05/07/18 09:41 Dose: 5 mg Artificial Tears (Tears Naturale Opth Drops) 1 drop EACH EYE Q8H [facility] Last Admin: 05/07/18 08:02 Dose: Not Given Aspirin (Aspirin Chew) 81 mg NG/OG DAILY [facility] Last Admin: 05/07/18 09:41 Dose: 81 mg Atorvastatin Calcium (Lipitor) 40 mg NG/OG HS [facility] Last Admin: 05/06/18 20:48 Dose: 40 mg Bisacodyl (Dulcolax Supp) 10 mg RECTAL DAILY PRN PRN Reason: SEVERE CONSITIPATION Chlorhexidine Gluconate (Peridex 0.12% Oral Kit) 15 ml OROPHARYNG BID@0800, 2000 [facility] Last Admin: 05/07/18 09:39 Dose: 15 ml Dextrose (D50w Vial) 50 ml IV.PUSH UNSCH PRN PRN Reason: PER HYPOGLYCEMIA PROTOCOL Famotidine (Pepcid Pf Inj) 20 mg IV.PUSH Q12HR [facility] Last Admin: 05/07/18 09:43 Dose: 20 mg Gabapentin (Neurontin) 600 mg PO BID [facility] Last Admin: 05/01/18 08:56 Dose: Not Given Glucagon (Glucagon Inj) 1 mg OTHER PRN PRN PRN Reason: for Hypoglycemia Protocol Heparin Sodium (Porcine) (Heparin Inj) 5,000 units SQ Q12HR [facility] Last Admin: 05/07/18 09:43 Dose: 5,000 units Hydralazine HCl (Apresoline) 25 mg NG/OG QID PRN PRN Reason: SEE LABEL COMMENTS Last Admin: 05/06/18 16:40 Dose: 25 mg Hydralazine HCl (Apresoline Inj) 10 mg IV.PUSH Q1H PRN PRN Reason: sbp > 140 Last Admin: 05/06/18 15:58 Dose: 10 mg Levetiracetam (Keppra 1000 Mg/100 Ml Premix) 100 mls @ 400 mls/hr IV.SIG Q12H [facility] Last Infusion: 05/07/18 07:51 Dose: Infused Nicardipine HCl 25 mg/ Sodium (Chloride) 250 mls @ 50 mls/hr IV.CONT TITRATE PRN; Protocol PRN Reason: Per Protocol Last Admin: 05/07/18 11:07 Dose: 10 mg/hr, 100 mls/hr Propofol (Diprivan 1000 Mg/100 Ml Inj) 1,000 mg in 100 mls @ 1.95 mls/hr IV.CONT TITRATE PRN; Protocol PRN Reason: Per Protocol Last Admin: 05/07/18 10:12 Dose: 50 mcg/kg/min, 19.5 mls/hr Fentanyl (Fentanyl 10 Mcg/Ml Premix Drip) 2,500 mcg in 250 mls @ 5 mls/hr IV.SIG TITRATE PRN; Protocol PRN Reason: Per Protocol Magnesium Sulfate 4 gm/ Sodium (Chloride) 100 mls @ 50 mls/hr IV.SIG UNSCH PRN PRN Reason: For Magnesium 0.9 - 1.1 mg/dL Magnesium Sulfate 2 gm/ Sodium (Chloride) 100 mls @ 50 mls/hr IV.SIG UNSCH PRN PRN Reason: For Magnesium 1.2 - 1.6 mg/dL Potassium Chloride (Kcl 40 Meq Premix Inj) 40 meq in 100 mls @ 25 mls/hr IV.SIG Q2H PRN PRN Reason: For Potassium 2.8 - 3.2 mEq/L Potassium Chloride (Kcl 20 Meq Premix Inj) 20 meq in 100 mls @ 50 mls/hr IV.SIG Q2H PRN PRN Reason: For Potassium 3.3 - 3.5 mEq/L Last Infusion: 05/04/18 12:43 Dose: Infused Potassium Chloride (Kcl 40 Meq Premix Inj) 40 meq in 100 mls @ 25 mls/hr IV.SIG UNSCH PRN PRN Reason: For Potassium 3.3 - 3.5 mEq/L Potassium Chloride (Kcl 20 Meq Premix Inj) 20 meq in 100 mls @ 50 mls/hr IV.SIG Q2H PRN PRN Reason: For Potassium 2.8 - 3.2 mEq/L Potassium Phosphate 30 mmol/ (Sodium Chloride) 260 mls @ 42 mls/hr IV.SIG UNSCH PRN PRN Reason: SEE LABEL COMMENTS Sodium Phosphate 30 mmol/ (Sodium Chloride) 260 mls @ 42 mls/hr IV.SIG UNSCH PRN PRN Reason: For Phosphorus < 2.5 mg/dL Insulin Aspart (Novolog Insulin Correctional Sugar Inj) 0 unit SQ Q6HR [facility]; Protocol Last Admin: 05/07/18 08:01 Dose: 1 unit Labetalol HCl (Trandate Inj) 10 mg IV.PUSH Q1H PRN PRN Reason: Sbp>140, Dbp>90, Hr>65 Last Admin: 05/07/18 06:17 Dose: 10 mg Lactulose (Lactulose Liq) 30 ml PO DAILY PRN PRN Reason: SEVERE CONSITIPATION Magnesium Oxide (Mag-Ox) 800 mg PO UNSCH PRN PRN Reason: For Magnesium 1.2 - 1.6 mg/dL Miscellaneous Medication () 1 each OROPHARYNG 0000,0400,1200,1600 [facility] Last Admin: 05/07/18 11:06 Dose: 1 each Nitroglycerin (Nitro-Bid 2% Oint) 2 inch TOPICAL Q6HR PRN PRN Reason: Sbp>140, Dbp>90 Ondansetron HCl (Zofran Inj) 4 mg IV.PUSH Q6H PRN PRN Reason: NAUSEA Potassium Bicarb/Potassium Chloride (K-Lyte Cl Eff) 50 meq PO UNSCH PRN PRN Reason: For Potassium 3.3 - 3.5 mEq/L Potassium Phosphate (K-Phos Original) 2,000 mg PO Q4H PRN PRN Reason: Phosphorus Less Than 2.5 mg/dL Potassium Phosphate (K-Phos Original) 2,000 mg PO UNSCH PRN PRN Reason: SEE LABEL COMMENTS Senna/Docusate Sodium (Aleah-Colace) 1 tab PO BID [facility] Last Admin: 05/07/18 09:41 Dose: 1 tab Sennosides (Senokot) 17.2 mg PO Q12H PRN PRN Reason: Moderate Constipation Sodium Chloride (Ns Flush) 2 ml IV.FLUSH BID [facility] Last Admin: 05/07/18 09:44 Dose: 2 ml Sodium Chloride (Ns Flush) 2 ml IV.FLUSH UNSCH PRN PRN Reason: FLUSH AFTER USING IV ACCESS Last Admin: 05/06/18 08:32 Dose: 2 ml Thiamine HCl (Thiamine Inj) 100 mg IM DAILY [facility] Last Admin: 05/06/18 08:33 Dose: 100 mg Allergies/Adverse Reactions: Allergies Allergy/AdvReac Type Severity Reaction Status Date / Time JACE Inhibitors Allergy Swelling Verified 05/06/18 12:26 of Lip/Tongue/Throat iodine Allergy Swelling Verified 04/19/18 15:50 Physical Exam Vital signs: Vital Signs 05/06/18 11:30 05/06/18 11:45 05/06/18 12:00 Temperature 98.3 F Pulse Rate 100 H 95 H 92 H Respiratory Rate 17 14 14 Blood Pressure 135/72 125/62 122/59 L Pulse Oximetry 91 L 95 96 05/06/18 12:15 05/06/18 12:30 05/06/18 12:45 Temperature Pulse Rate 88 87 88 Respiratory Rate 14 14 14 Blood Pressure 120/58 L 129/62 133/63 Pulse Oximetry 97 97 96 05/06/18 13:00 05/06/18 13:15 05/06/18 13:25 Temperature Pulse Rate 91 H 89 86 Respiratory Rate 15 14 14 Blood Pressure 146/69 H 139/63 133/60 Pulse Oximetry 96 96 96 05/06/18 13:30 05/06/18 13:45 05/06/18 14:00 Temperature Pulse Rate 85 84 85 Respiratory Rate 14 14 14 Blood Pressure 139/63 139/62 132/59 L Pulse Oximetry 96 96 96 05/06/18 14:15 05/06/18 14:30 05/06/18 14:45 Temperature Pulse Rate 82 81 80 Respiratory Rate 14 14 14 Blood Pressure 132/60 131/59 L 133/61 Pulse Oximetry 96 97 97 05/06/18 15:00 05/06/18 15:15 05/06/18 15:30 Temperature Pulse Rate 83 82 81 Respiratory Rate 14 14 14 Blood Pressure 136/63 129/60 125/56 L Pulse Oximetry 97 97 97 05/06/18 15:45 05/06/18 15:51 05/06/18 16:00 Temperature 98.7 F Pulse Rate 80 81 Respiratory Rate 14 14 14 Blood Pressure 130/60 133/63 Pulse Oximetry 97 100 100 12/31/18 16:15 05/06/18 16:30 05/06/18 16:45 Temperature Pulse Rate 86 90 88 Respiratory Rate 16 16 16 Blood Pressure 134/63 128/58 L 126/62 Pulse Oximetry 95 95 96 05/06/18 17:00 05/06/18 17:15 05/06/18 17:30 Temperature Pulse Rate 90 88 88 Respiratory Rate 15 15 18 Blood Pressure 127/61 128/61 135/62 Pulse Oximetry 96 96 96 05/06/18 17:45 05/06/18 18:00 05/06/18 18:15 Temperature Pulse Rate 75 74 72 Respiratory Rate 15 15 15 Blood Pressure 116/57 L 114/57 L 112/56 L Pulse Oximetry 95 95 95 05/06/18 20:00 05/06/18 21:15 05/06/18 21:30 Temperature 98.8 F Pulse Rate 69 71 72 Respiratory Rate 18 16 Blood Pressure 127/62 117/60 Pulse Oximetry 94 L 94 L 05/06/18 21:42 05/06/18 21:44 05/06/18 21:45 Temperature Pulse Rate 74 74 Respiratory Rate 17 17 16 Blood Pressure 128/65 Pulse Oximetry 95 94 L 05/06/18 22:00 05/06/18 22:15 05/06/18 22:27 Temperature Pulse Rate 75 75 75 Respiratory Rate 15 15 15 Blood Pressure 127/60 123/56 L 112/58 L Pulse Oximetry 94 L 94 L 94 L 05/06/18 22:30 05/06/18 22:45 05/06/18 23:00 Temperature Pulse Rate 74 72 71 Respiratory Rate 15 14 14 Blood Pressure 114/54 L 112/54 L 102/54 L Pulse Oximetry 94 L 94 L 94 L 05/06/18 23:04 05/06/18 23:15 05/06/18 23:30 Temperature Pulse Rate 70 69 71 Respiratory Rate 14 16 16 Blood Pressure 107/56 L 106/58 L 116/61 Pulse Oximetry 94 L 94 L 95 05/06/18 23:45 05/07/18 00:00 05/07/18 00:15 Temperature 100.5 F H Pulse Rate 73 75 75 Respiratory Rate 18 15 15 Blood Pressure 117/60 126/61 132/58 L Pulse Oximetry 95 95 95 05/07/18 00:26 05/07/18 00:30 05/07/18 00:36 Temperature Pulse Rate 74 75 76 Respiratory Rate 18 17 18 Blood Pressure 134/60 121/58 L Pulse Oximetry 95 95 95 05/07/18 00:40 05/07/18 00:50 05/07/18 01:00 Temperature Pulse Rate 76 75 74 Respiratory Rate 17 17 16 Blood Pressure 119/57 L 119/59 L 113/56 L Pulse Oximetry 94 L 94 L 94 L 05/07/18 01:15 05/07/18 01:30 05/07/18 01:45 Temperature Pulse Rate 72 69 71 Respiratory Rate 14 14 14 Blood Pressure 109/57 L 111/55 L 119/58 L Pulse Oximetry 94 L 94 L 94 L 05/07/18 02:00 05/07/18 02:15 05/07/18 02:30 Temperature Pulse Rate 71 70 70 Respiratory Rate 14 14 15 Blood Pressure 120/60 119/59 L 123/60 Pulse Oximetry 94 L 95 95 05/07/18 02:45 05/07/18 03:00 05/07/18 03:15 Temperature Pulse Rate 72 71 72 Respiratory Rate 14 16 16 Blood Pressure 125/56 L 133/62 123/55 L Pulse Oximetry 95 97 96 05/07/18 03:30 05/07/18 03:45 05/07/18 03:57 Temperature Pulse Rate 73 71 70 Respiratory Rate 14 14 14 Blood Pressure 119/59 L 118/56 L Pulse Oximetry 96 96 97 05/07/18 04:00 05/07/18 04:15 05/07/18 04:30 Temperature 99.4 F Pulse Rate 71 71 72 Respiratory Rate 14 14 16 Blood Pressure 119/57 L 120/55 L 118/58 L Pulse Oximetry 96 96 96 05/07/18 04:45 05/07/18 05:00 05/07/18 05:16 Temperature Pulse Rate 76 75 71 Respiratory Rate 16 17 26 H Blood Pressure 122/60 120/55 L 118/59 L Pulse Oximetry 96 96 97 05/07/18 05:30 05/07/18 05:45 05/07/18 06:00 Temperature Pulse Rate 70 68 71 Respiratory Rate 14 16 15 Blood Pressure 118/59 L 117/56 L 120/58 L Pulse Oximetry 95 96 95 05/07/18 06:15 05/07/18 06:30 05/07/18 06:45 Temperature Pulse Rate 72 71 71 Respiratory Rate 15 15 14 Blood Pressure 127/60 129/62 127/59 L Pulse Oximetry 96 96 96 05/07/18 06:55 05/07/18 07:00 05/07/18 07:15 Temperature Pulse Rate 71 70 69 Respiratory Rate 14 14 14 Blood Pressure 118/58 L 118/56 L 115/55 L Pulse Oximetry 96 96 96 05/07/18 07:30 05/07/18 08:52 Temperature Pulse Rate 70 72 Respiratory Rate 14 27 H Blood Pressure 120/58 L Pulse Oximetry 96 94 L Intake & Output 05/06/18 05/07/18 05/07/18 18:59 06:59 18:59 Intake Total 1960 / 1960 2034 / 2034 700 / 700 Output Total 750 / 750 850 / 850 Balance 1210 / 1210 1184 / 1184 700 / 700 Weight 70.7 kg Intake: IV 1300 / 1300 1200 / 1200 700 / 700 Diprivan 1000 mg/100 ml Inj 1, 100 / 100 200 / 200 100 / 100 000 mg In 100 ml @ 5 MCG/KG/MIN 1.95 mls/hr IV.CONT TITRATE PRN Rx#:[id number] Cardene Inj 25 MG In NS Inj 240 1000 / 1000 1000 / 1000 500 / 500 ML @ 5 MG/HR 50 mls/hr IV.CONT TITRATE PRN Rx#:[id number] Magnesium Sulfate 1 gm/D5W 100 100 / 100 ml Premix 100 ML @ 100 mls/hr IV.SIG ONCE ONE Rx#:[id number] Keppra 1000 mg/100 mL Premix 100 / 100 100 / 100 100 ML @ 400 mls/hr IV.SIG Q12H [facility] Rx#:[id number] Tube Feeding 460 / 460 714 / 714 Tube Irrigant 200 / 200 120 / 120 Output: Urine 350 / 350 300 / 300 Stool 400 / 400 550 / 550 Other: # Voids 1 # Incontinent Voids 4 Date of Last Bowel Movement 05/06/18 05/07/18 Narrative: intubated fully sedated on dip now - Urinary Catheter Management Straight Cath placed during this visit: no Objective Laboratory Results - last 24 hr 05/03/18 05/06/18 05/07/18 08:56 17:15 00:12 WBC RBC Hgb Hct MCV MCH MCHC RDW Plt Count MPV Neut % (Auto) Lymph % (Auto) [place] % (Auto) Eos % (Auto) Baso % (Auto) Neut # (Auto) Lymph # (Auto) [place] # (Auto) Eos # (Auto) Baso # (Auto) WBC Differential Differential Comment Sodium Potassium Chloride Carbon Dioxide Anion Gap BUN Creatinine Estimated GFR POC Glucose 265 H 227 H Random Glucose Calcium Thiamine ND 05/07/18 05/07/18 05/07/18 06:11 09:17 09:17 WBC 10.3 RBC 3.48 L Hgb 10.9 L Hct 33.3 L MCV 95.5 MCH 31.2 MCHC 32.6 RDW 15.0 Plt Count 285 MPV 9.2 Neut % (Auto) 62.3 Lymph % (Auto) 17.9 [place] % (Auto) 12.8 H Eos % (Auto) 6.1 H Baso % (Auto) 0.9 Neut # (Auto) 6.4 Lymph # (Auto) 1.8 [place] # (Auto) 1.3 H Eos # (Auto) 0.6 H Baso # (Auto) 0.1 WBC Differential . Differential Comment Auto diff final Sodium 146 H Potassium 4.3 Chloride 121 H Carbon Dioxide 17.8 L Anion Gap 7 BUN 29 H Creatinine 0.91 Estimated GFR 62 L POC Glucose 195 H Random Glucose 185 H Calcium 7.7 L Thiamine Review/Management - Diagnosis (1) Hypertensive encephalopathy Code(s): I67.4 - Hypertensive encephalopathy Status: Acute Current Visit: Yes (2) HTN (hypertension) Code(s): I10 - Essential (primary) hypertension Status: Acute Current Visit : No (3) Dementia Code(s): F03.90 - Unspecified dementia without behavioral disturbance Status: Acute Current Visit: No (4) Seizures Code(s): R56.9 - Unspecified convulsions Status: Acute Current Visit: No (5) Anxiety Code(s): F41.9 - Anxiety disorder, unspecified Status: Acute Current Visit: No - Review/Management Plan: 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 may have element of PRES as noted in prior notes recs check csf studies-pending bp control Thiamine supplementation follow exam Dr. Mehta to follow in a.m. 05/01/18 mri loops like PRES mra and mrv and labs all neg keep bp 110-120/ LP today eeg neg on keppra --------- 05/02/18 looks a little better mri repeat yest no change pres bp better keep 110-120/ await LP needs done today!! on keppra 05/03/18 mri no change eeg neg LP neg bp better check ct abd and pelvis and chest paraneo 05/06/18 looks so much better neurowise check paraneoplastic labs PRES clinically better thiamine pend will recheck mri in few days keep bp down 110-120/ ct chest and abd ok 05/07/18 sedated i [facility] med team pt looked to have early chages of pres 2 days after admit and bp initially 186/ in er the Question of which came first the pres or the catatonia ? i think overall the pres likley caused the ms changes as bp came down she is so much better yest i dw nurse hold sedative should awaken she was on seroquel and lexapro i believe b4 admit and nms considered with drastic improvement clinically would not rec ect need to inc po meds for bp control i see no major hypotension documented when not on iv meds (2) HTN (hypertension) Qualifiers: Hypertension type: other secondary hypertension Qualified Code(s): I15.8 - Other secondary hypertension
--- NOTE | 2018-05-07 14:09 | P.PNCC ---
Subjective Subjective Remarks/Hospital Course: This is a 68-year-old female. Admission 04/30/2018. Date of consultation 05/03/2018. Past medical history includes non-Hodgkin's lymphoma in remission since 2008, history of CVA, underlying dementia disorder NOS, hypertension, hyperlipidemia, peripheral vascular disease with known right carotid stenosis, diabetes mellitus, gout, and a known right clavicle fracture. She has a right [id number] amputation from peripheral vascular disease. Patient presents to [facility] 04/30 with recent admissions for catatonia state. Patient was treated under psychiatry to be medically cleared by family medicine practice with little improvement in her symptomatology. She presented here with elevated blood pressure and altered mental status. She received clonidine and hydralazine the results and was started on nicardipine drip and transferred to the intensive care unit. She is also on lisinopril which was discontinued recently. Her nicardipine drip is currently off. This morning, was notified by the RN patient had a swollen tongue and has had increasing oxygen requirements. Patient required emergent intubation with glide scope without complication. Most likely is introduced secondary to JACE inhibitor. Patient is currently on famotidine, diphenhydramine and received 1 dose of steroids. 05/04: Currently resting in bed in no acute distress. Tongue remains swollen. Replace potassium. Restarted on nicardipine drip overnight due to hypertension. 05/05: Remains on nicardipine drip at 5 mg an hour. Tongue remains less swollen today. Will diuresis with bumetanide x1. Does not appear to be any distress. Propofol is currently 50 sunita grams per kilogram per minute. Will lessen sedation today. 05/06: Remains on nicardipine drip at 5 mg an hour. Tongue mitral swollen. Weaning parameters borderline. Emesis during spontaneous breathing trials noted. Subjective 05/07/18: Afebrile. Remains in adequate drip at 15 mg an hour.. Will switch to clevidipine for less volume. Neurology requests discontinuation of propofol. Adding hydralazine, isosorbide and carvedilol and attempt to wean off for goal systolic blood pressure less than 110 Objective Vital Signs / I&O: Vital Signs 05/06/18 14:15 05/06/18 14:30 05/06/18 14:45 Temperature Pulse Rate 82 81 80 Respiratory Rate 14 14 14 Blood Pressure 132/60 131/59 L 133/61 Pulse Oximetry 96 97 97 05/06/18 15:00 05/06/18 15:15 05/06/18 15:30 Temperature Pulse Rate 83 82 81 Respiratory Rate 14 14 14 Blood Pressure 136/63 129/60 125/56 L Pulse Oximetry 97 97 97 05/06/18 15:45 05/06/18 15:51 05/06/18 16:00 Temperature 98.7 F Pulse Rate 80 81 Respiratory Rate 14 14 14 Blood Pressure 130/60 133/63 Pulse Oximetry 97 100 100 05/06/18 16:15 05/06/18 16:30 05/06/18 16:45 Temperature Pulse Rate 86 90 88 Respiratory Rate 16 16 16 Blood Pressure 134/63 128/58 L 126/62 Pulse Oximetry 95 95 96 05/06/18 17:00 05/06/18 17:15 05/06/18 17:30 Temperature Pulse Rate 90 88 88 Respiratory Rate 15 15 18 Blood Pressure 127/61 128/61 135/62 Pulse Oximetry 96 96 96 05/06/18 17:45 05/06/18 18:00 05/06/18 18:15 Temperature Pulse Rate 75 74 72 Respiratory Rate 15 15 15 Blood Pressure 116/57 L 114/57 L 112/56 L Pulse Oximetry 95 95 95 05/06/18 20:00 05/06/18 21:15 05/06/18 21:30 Temperature 98.8 F Pulse Rate 69 71 72 Respiratory Rate 18 16 Blood Pressure 127/62 117/60 Pulse Oximetry 94 L 94 L 05/06/18 21:42 05/06/18 21:44 05/06/18 21:45 Temperature Pulse Rate 74 74 Respiratory Rate 17 17 16 Blood Pressure 128/65 Pulse Oximetry 95 94 L 05/06/18 22:00 05/06/18 22:15 05/06/18 22:27 Temperature Pulse Rate 75 75 75 Respiratory Rate 15 15 15 Blood Pressure 127/60 123/56 L 112/58 L Pulse Oximetry 94 L 94 L 94 L 05/06/18 22:30 05/06/18 22:45 05/06/18 23:00 Temperature Pulse Rate 74 72 71 Respiratory Rate 15 14 14 Blood Pressure 114/54 L 112/54 L 102/54 L Pulse Oximetry 94 L 94 L 94 L 05/06/18 23:04 05/06/18 23:15 05/06/18 23:30 Temperature Pulse Rate 70 69 71 Respiratory Rate 14 16 16 Blood Pressure 107/56 L 106/58 L 116/61 Pulse Oximetry 94 L 94 L 95 05/06/18 23:45 05/07/18 00:00 05/07/18 00:15 Temperature 100.5 F H Pulse Rate 73 75 75 Respiratory Rate 18 15 15 Blood Pressure 117/60 126/61 132/58 L Pulse Oximetry 95 95 95 05/07/18 00:26 05/07/18 00:30 05/07/18 00:36 Temperature Pulse Rate 74 75 76 Respiratory Rate 18 17 18 Blood Pressure 134/60 121/58 L Pulse Oximetry 95 95 95 05/07/18 00:40 05/07/18 00:50 05/07/18 01:00 Temperature Pulse Rate 76 75 74 Respiratory Rate 17 17 16 Blood Pressure 119/57 L 119/59 L 113/56 L Pulse Oximetry 94 L 94 L 94 L 05/07/18 01:15 05/07/18 01:30 05/07/18 01:45 Temperature Pulse Rate 72 69 71 Respiratory Rate 14 14 14 Blood Pressure 109/57 L 111/55 L 119/58 L Pulse Oximetry 94 L 94 L 94 L 05/07/18 02:00 05/07/18 02:15 05/07/18 02:30 Temperature Pulse Rate 71 70 70 Respiratory Rate 14 14 15 Blood Pressure 120/60 119/59 L 123/60 Pulse Oximetry 94 L 95 95 05/07/18 02:45 05/07/18 03:00 05/07/18 03:15 Temperature Pulse Rate 72 71 72 Respiratory Rate 14 16 16 Blood Pressure 125/56 L 133/62 123/55 L Pulse Oximetry 95 97 96 05/07/18 03:30 05/07/18 03:45 05/07/18 03:57 Temperature Pulse Rate 73 71 70 Respiratory Rate 14 14 14 Blood Pressure 119/59 L 118/56 L Pulse Oximetry 96 96 97 05/07/18 04:00 05/07/18 04:15 05/07/18 04:30 Temperature 99.4 F Pulse Rate 71 71 72 Respiratory Rate 14 14 16 Blood Pressure 119/57 L 120/55 L 118/58 L Pulse Oximetry 96 96 96 05/07/18 04:45 05/07/18 05:00 05/07/18 05:16 Temperature Pulse Rate 76 75 71 Respiratory Rate 16 17 26 H Blood Pressure 122/60 120/55 L 118/59 L Pulse Oximetry 96 96 97 05/07/18 05:30 05/07/18 05:45 05/07/18 06:00 Temperature Pulse Rate 70 68 71 Respiratory Rate 14 16 15 Blood Pressure 118/59 L 117/56 L 120/58 L Pulse Oximetry 95 96 95 05/07/18 06:15 05/07/18 06:30 05/07/18 06:45 Temperature Pulse Rate 72 71 71 Respiratory Rate 15 15 14 Blood Pressure 127/60 129/62 127/59 L Pulse Oximetry 96 96 96 05/07/18 06:55 05/07/18 07:00 05/07/18 07:15 Temperature Pulse Rate 71 70 69 Respiratory Rate 14 14 14 Blood Pressure 118/58 L 118/56 L 115/55 L Pulse Oximetry 96 96 96 05/07/18 07:30 05/07/18 08:00 05/07/18 08:15 Temperature 99.1 F Pulse Rate 70 70 69 Respiratory Rate 14 14 14 Blood Pressure 120/58 L 111/56 L 118/56 L Pulse Oximetry 96 95 94 L 05/07/18 08:30 05/07/18 08:45 05/07/18 08:52 Temperature Pulse Rate 71 71 72 Respiratory Rate 15 14 27 H Blood Pressure 114/56 L 120/58 L Pulse Oximetry 95 94 L 94 L 05/07/18 09:00 05/07/18 09:15 05/07/18 09:30 Temperature Pulse Rate 71 71 72 Respiratory Rate 36 H 37 H 35 H Blood Pressure 116/59 L 112/56 L 113/57 L Pulse Oximetry 96 95 94 L 05/07/18 09:45 05/07/18 10:00 05/07/18 10:15 Temperature Pulse Rate 73 72 73 Respiratory Rate 32 H 34 H 32 H Blood Pressure 113/58 L 115/57 L 117/58 L Pulse Oximetry 94 L 94 L 94 L 05/07/18 10:30 05/07/18 10:45 05/07/18 11:00 Temperature Pulse Rate 73 72 74 Respiratory Rate 43 H 18 17 Blood Pressure 117/56 L 109/53 L 115/58 L Pulse Oximetry 90 L 90 L 05/07/18 11:15 05/07/18 11:30 05/07/18 11:45 Temperature Pulse Rate 80 82 82 Respiratory Rate 16 16 16 Blood Pressure 123/60 125/58 L 127/62 Pulse Oximetry 90 L 90 L 90 L 05/07/18 12:00 05/07/18 12:03 Temperature 99 F Pulse Rate 79 79 Respiratory Rate 15 15 Blood Pressure 122/60 Pulse Oximetry 100 Intake & Output 05/06/18 05/07/18 05/07/18 18:59 06:59 18:59 Intake Total 1960 / 1960 2034 / 2034 950 / 950 Output Total 750 / 750 850 / 850 Balance 1210 / 1210 1184 / 1184 950 / 950 Weight 70.7 kg Intake: IV 1300 / 1300 1200 / 1200 950 / 950 Diprivan 1000 mg/100 ml Inj 1, 100 / 100 200 / 200 100 / 100 000 mg In 100 ml @ 5 MCG/KG/MIN 1.95 mls/hr IV.CONT TITRATE PRN Rx#:[id number] Cardene Inj 25 MG In NS Inj 240 1000 / 1000 1000 / 1000 750 / 750 ML @ 5 MG/HR 50 mls/hr IV.CONT TITRATE PRN Rx#:[id number] Magnesium Sulfate 1 gm/D5W 100 100 / 100 ml Premix 100 ML @ 100 mls/hr IV.SIG ONCE ONE Rx#:[id number] Keppra 1000 mg/100 mL Premix 100 / 100 100 / 100 100 ML @ 400 mls/hr IV.SIG Q12H YUKO Rx#:[id number] Tube Feeding 460 / 460 714 / 714 Tube Irrigant 200 / 200 120 / 120 Output: Urine 350 / 350 300 / 300 Stool 400 / 400 550 / 550 Other: # Voids 1 # Incontinent Voids 4 Date of Last Bowel Movement 05/06/18 05/07/18 Result Diagrams: 05/07/18 09:17 05/07/18 09:17 Other Results: Microbiology 05/03/18 08:00 Sputum - Endotracheal Gram Stain - Final 05/03/18 08:00 Sputum - Endotracheal Sputum Culture - Final Heavy growth normal respiratory maritza 05/02/18 11:30 Lumbar Puncture Gram Stain - Final 05/02/18 11:30 Lumbar Puncture CSF Culture - Final No growth in 72 hours 05/02/18 11:30 Cerebral Spinal Fluid - Lumbar Puncture Acid Fast Bacilli Smear - Final No acid fast bacilli seen 05/02/18 11:30 Cerebral Spinal Fluid - Lumbar Puncture Fungal Smear - Final No fungal elements seen Imaging: Carotid Doppler Study 05/01/18 00:00 CONCLUSION: 1. Elevation of the peak systolic velocity of the left internal carotid artery suggesting 50-69% stenosis although the ICA/CCA ratio on the left suggests less than 50% stenosis. CTA of the carotids would be helpful to resolve these discordant findings. There is also elevation of the peak systolic velocity of the left external carotid artery in the 50-69% stenosis range. 2. Less than 50% stenosis involving the right internal carotid artery. 3. Moderate atherosclerotic plaque formation within the carotid bulbs and proximal internal carotid arteries. Head MRI 05/01/18 19:26 There is vasogenic edema seen involving the posterior aspects of the parietal lobes as well as the occipital lobes bilaterally. This is similar to the prior examination. Periventricular high FLAIR signal abnormality also noted involving both cerebral hemispheres but most pronounced within the parietal lobes. This is unchanged. A small lacunar infarction involving the left abraham radiata. No hemorrhage. No acute infarction. Normal flow voids within the major intracranial vessels. Ventricles are normal in size. Orbital structures are normal. No abnormal enhancement following gadolinium. Mucosal thickening without air-fluid levels involving anterior ethmoid air cells on the right. Remaining paranasal sinuses are clear. Fluid signal seen within the mastoid air cells bilaterally but more pronounced on the left. CONCLUSION: 1. Study degraded by motion artifact. 2. Vasogenic edema involving the parietal and occipital lobes bilaterally is stable. Although not specific for this could relate to posterior reversible encephalopathy syndrome (PRES). 3. Atrophy. 4. Chronic small vessel ischemic change. Lumbar Puncture Fluoroscopy 05/02/18 00:00 CONCLUSION: 1. Uncomplicated fluoroscopically guided lumbar puncture. Abdomen/Pelvis CT 05/03/18 00:00 CONCLUSION: 1. Questionable mass within the body of the pancreas measuring 1.7 x 2.6 cm. MRI of the abdomen with contrast may be helpful for further characterization of this questionable mass if clinically indicated. 2. Gallbladder wall is mildly thickened. If there is clinical concern for acute cholecystitis, a hepatobiliary scan may be helpful to confirm cystic duct obstruction. 3. Liver is enlarged and appears somewhat nodular in contour raising the possibility of cirrhosis. No focal mass is noted. 4. Small bilateral pleural effusions with adjacent alveolar consolidations are noted. 5. Tiny pericardial effusion. 6. Minimal ascites. 7. 11 mm calcified fibroid within the uterus. 8. Degenerative changes and scoliosis of the thoracolumbar spine. Chest CT 05/03/18 00:00 CONCLUSION: 1. Small bilateral pleural effusions. 2. Posterior bibasilar alveolar consolidations consistent with compressive atelectasis and/or pneumonia. Clinical correlation is recommended. 3. Tiny pericardial effusion. 4. Cardiomegaly and coronary artery calcifications. 5. No pulmonary nodule, mass or lymphadenopathy. 6. Scoliosis and degenerative changes involving the thoracic spine. Chest X-Ray 05/03/18 07:08 CONCLUSION: 1. Improved position of the endotracheal tube which is now 3 cm above the tim. 2. Scattered bibasilar atelectasis. 3. Degenerative changes and scoliosis of the thoracic spine. Chest X-Ray 05/03/18 07:09 CONCLUSION: 1. Endotracheal tube is low in position at the level of the tim and directed towards the right mainstem bronchus. This should be pulled back 3 cm for more optimal positioning. 2. Scattered atelectatic changes bilaterally. 3. Degenerative changes and scoliosis of the thoracic spine. Abdomen MRI 05/04/18 00:00 CONCLUSION: 1. No pancreatic mass identified on MRI. 2. Bilateral pleural effusions. Moderate anasarca. Mild ascites. Chest X-Ray 05/05/18 06:00 CONCLUSION: Worsening mild consolidation and small pleural effusions at each base. New nasogastric tube coursing into the stomach, tip not included on the study. Endotracheal tube tip is about 2 cm above the tim. Chest X-Ray 05/06/18 06:00 CONCLUSION: Bibasilar areas of consolidation or atelectasis being worse on the left. Some degree of a left effusion can be considered. Objective Remarks: GENERAL: This is a 68-year-old female currently orotracheally intubated SKIN: Warm and dry. HEAD: Atraumatic. Normocephalic. EYES: Pupils equal and round around 3 mm bilaterally and reactive. No scleral icterus. No injection or drainage. ENT: No nasal bleeding or discharge. Mucous membranes pink and moist. Tongue less edematous and swollen NECK: Trachea midline. No JVD. CARDIOVASCULAR: Regular rate and rhythm. S1, S2. No S4. RESPIRATORY: No accessory muscle use. Patient bases with few crackles. GASTROINTESTINAL: Abdomen soft, non-tender, obese. Hepatic and splenic margins not palpable. MUSCULOSKELETAL: Extremities trace bilateral lower extremity edema. No obvious deformities. NEUROLOGICAL: Patient arousable moving all 4 extremities spontaneously to command. Positive cough and gag. Positive corneal reflex. Withdraws to pain. Assessment and Plan - Assessment and Plan Plan: Neuro/Psych: Acute encephalopathy Possible PRES History of CVA Seizure disorder NOS [place] MRI brain revealed vasogenic edema in the bilateral posterior occipital lobes. Possible differential includes PRES Evaluate Dr. Mehta/neurology. Continue aspirin 81 mg daily. Goal blood pressure between 110 120 systolic. Lumbar puncture 05/02 unremarkable Remains on levetiracetam 1000 mg twice daily for seizures Depression medication escitalopram 20 mg daily Hold gabapentin 60o mg twice daily Family medicine has patient scheduled lorazepam 1 mg every 6 hours Currently on propofol drip at 50 sunita grams per kilogram per minute for sedation while intubated Goal of RA SS -2 Daily sedation vacation starting today CV: Hypertensive emergency Hyper lipedema Peripheral vascular disease Noted 2D echocardiogram 05/01 revealed EF around 55-60 with no regional wall motion abnormalities with small pericardial effusion. Goal keep systolic blood pressure around 110-120 per neurology's recommendations Previously on hydralazine, clonidine scheduled. Will switch to amlodipine 5 mg daily, carvedilol 3. 25 mg twice daily, hydralazine 25 3 times daily and As needed hydralazine, Nitropaste and labetalol Start amlodipine 5 mg daily Switch nicardipine drip to clevidipine drip maintain systolic blood pressure is 110. Continue atorvastatin 20 mg daily Carotid Dopplers revealed left stenosis 50-69%. Right less than 50%. Bumetanide 2 mg IV x1 today. Resp: Acute respiratory failure secondary angioedema PRV 14/500/1.05/11/34 Ventilator bundle Albuterol/ipratropium aerosols every 4 hours with albuterol every 2 as needed dyspnea No spontaneous breathing trials until angioedema resolving Follow-up on post intubation chest x-ray and ABG Currently on scheduled diphenhydramine 50 mg IV every 6 hours stop date 05/04, famotidine 20 mg IV twice daily and received 1 dose of methylprednisolone succinate 125 mg x1 GI: Continue tube feeding with Glucerna 1.5 goal 60 cc an hour. Noted CT abdomen/pelvis revealed pancreatic mass. The abdominal MRI no pancreatic mass. Noted normal CA 19/9, CEA and CA 125 NG tube to low intermittent wall suction currently Famotidine for GI prophylaxis Docusate serum/senna 1 tablet twice daily for bowel regimen : Currently with [place] catheter. Endo: Diabetes mellitus type 2 Gout Sliding scale insulin with aspart insulin every 6 hours low regimen Accu-Cheks to maintain euglycemia TSH 0.5-4 Holding metformin and glimepiride. Renal: Creatinine currently within normal limits Monitor urine output Acute I's and O's Heme: Monitor CBC daily. Follow trends. No indication for transfusion of blood products at this time ID: Check sputum no growth to date Monitor for signs of hematology infection FEN: Acute hypokalemia -resolved Replace electrolytes as clinically indicated per ICU electrolyte protocol Currently on normal saline with 20 mEq of potassium chloride 100 cc an hour discontinued 05/05 MSK: Right [id number] amputation PT/OT evaluate and treat Access -Utilize peripheral IV. Central line if indicated Prophylaxis -GI -famotidine -DVT -SCD/heparin subcu Level 3 follow-up Code Status: Full code
[2018-05-07] MEDS: Clevidipine Inj 25 MG/50 ML VIAL IV.CONT PRN ×2 (15:40→21:05)
[2018-05-07] MEDS: Midazolam 100 MG/100 ML Inj 100 MG/100 ML BAG IV.CONT PRN (16:01)
[2018-05-07] MEDS: hydrALAZINE 25 MG Tablet PO SCH (18:03)
[2018-05-08] MEDS: Oral Hygiene Kit OROPHARYNG SCH ×4 (00:26→17:28)
[2018-05-08] MEDS: Insulin NovoLOG Aspart Correctional Sugar Inj SQ SCH ×4 (00:26→17:34)
[2018-05-08] MEDS: Artificial Tears Opth Drops 15 ML Bottle EACH EYE SCH ×4 (01:26→23:14)
[2018-05-08] MEDS: levETIRAcetam 1000mg/100mL Inj 100 ML IV.SIG SCH ×2 (01:50→13:11)
[2018-05-08] MEDS: Clevidipine Inj 25 MG/50 ML VIAL IV.CONT PRN ×13 (03:11→23:10)
--- NOTE | 2018-05-08 05:28 | XR ---
EXAM DATE: 05/08/2018 5:26 AM EST AGE/SEX: 68 years / Female INDICATIONS: Shortness of breath. CLINICAL DATA: This is the patient's subsequent encounter. Patient reports that signs and symptoms h ave been present for 2 weeks and indicates a pain score of Nonresponsive. MEDICAL/SURGICAL HISTORY: . Hypertension. Dementia. Diabetes. Cerebrovascular attack. Non-Hodgk in lymphoma. None. COMPARISON: [facility] [place], CHEST 1V SINGLE AP, 05/06/2018. . FINDINGS: The ET tube and NG tube are well placed. The patient is rotated towards the left. The heart size is n ormal. There is hazy density at the bases bilaterally being worse on the right. CONCLUSION: Hazy density bilaterally which may be secondary to effusions layering posteriorly. Some degree of con solidation or atelectasis at the bases can also be considered. Electronically signed by: Thanh Peraza MD Board Certified Radiologist 05/08/2018 5:27 AM EST
[2018-05-08 07:37] LABS: Baso # (Auto) 0.1 th/mm3 (0.0-0.2); Baso % (Auto) 0.7 % (0.0-2.0); Eos # (Auto) 0.6 th/mm3 (0.0-0.4); Eos % (Auto) 5.1 % (0.0-4.0); Hematocrit 36.2 % (35.0-46.0); Lymph % (Auto) 16.7 % (9.0-44.0); Mean Corpuscular HGB Conc 33.2 % (32.0-36.0); Mean Corpuscular Hemoglobin 31.3 pg (27.0-34.0); Mean Corpuscular Volume 94.2 fL (80.0-100.0); Mean Platelet Volume 10.2 fL (7.0-11.0); Mono # (Auto) 1.5 th/mm3 (0.0-0.9); Neut # (Auto) 7.6 th/mm3 (1.8-7.7); Neut % (Auto) 64.5 % (16.0-70.0); Platelet Count 330 th/mm3 (150-450); Red Blood Count 3.84 mil/mm3 (4.00-5.30); Red Cell Distribution Width 14.5 % (11.6-17.2); White Blood Count 11.8 th/mm3 (4.0-11.0)
[2018-05-08 08:02] LABS: Carbon Dioxide 19.4 meq/L (21.0-32.0); Magnesium 2.1 mg/dL (1.5-2.5); Phosphorus 3.1 mg/dL (2.5-4.9)
[2018-05-08 08:03] LABS: Potassium 3.7 meq/L (3.5-5.1)
[2018-05-08] MEDS: Heparin - SQ 10,000 UNITS/ML Vial SQ SCH ×2 (08:03→21:18)
[2018-05-08] MEDS: Famotidine PF Inj 20 MG/2 ML Vial IV.PUSH SCH ×2 (08:03→21:19)
[2018-05-08] MEDS: Chlorhexidine 0.12% Oral Kit 15 ML UDC OROPHARYNG SCH ×2 (08:04→20:18)
[2018-05-08] MEDS: hydrALAZINE 25 MG Tablet PO SCH ×4 (08:04→17:33)
[2018-05-08] MEDS: Senna/Docusate Sodium 8.6/50 MG Tablet PO SCH ×2 (08:04→21:18)
[2018-05-08] MEDS: amLODIPine 5 MG Tablet PO SCH (08:04)
[2018-05-08] MEDS: Midazolam 100 MG/100 ML Inj 100 MG/100 ML BAG IV.CONT PRN (08:19)
[2018-05-08 09:40] LABS: Eosinophils 7 % (0-4); Lymphocytes 15 % (9-44); Metamyelocytes 2 % (0-1); Monocytes 10 % (0-8); Platelet Estimate Normal (Normal); Platelet Morphology Normal (Normal); RBC Morphology Normal (Normal)
--- NOTE | 2018-05-08 10:26 | P.PNCC ---
Subjective Subjective Remarks/Hospital Course: This is a 68-year-old female. Admission 04/30/2018. Date of consultation 05/03/2018. Past medical history includes non-Hodgkin's lymphoma in remission since 2008, history of CVA, underlying dementia disorder NOS, hypertension, hyperlipidemia, peripheral vascular disease with known right carotid stenosis, diabetes mellitus, gout, and a known right clavicle fracture. She has a right [id number] amputation from peripheral vascular disease. Patient presents to [facility] 04/30 with recent admissions for catatonia state. Patient was treated under psychiatry to be medically cleared by family medicine practice with little improvement in her symptomatology. She presented here with elevated blood pressure and altered mental status. She received clonidine and hydralazine the results and was started on nicardipine drip and transferred to the intensive care unit. She is also on lisinopril which was discontinued recently. Her nicardipine drip is currently off. This morning, was notified by the RN patient had a swollen tongue and has had increasing oxygen requirements. Patient required emergent intubation with glide scope without complication. Most likely is introduced secondary to JACE inhibitor. Patient is currently on famotidine, diphenhydramine and received 1 dose of steroids. 05/04: Currently resting in bed in no acute distress. Tongue remains swollen. Replace potassium. Restarted on nicardipine drip overnight due to hypertension. 05/05: Remains on nicardipine drip at 5 mg an hour. Tongue remains less swollen today. Will diuresis with bumetanide x1. Does not appear to be any distress. Propofol is currently 50 sunita grams per kilogram per minute. Will lessen sedation today. 05/06: Remains on nicardipine drip at 5 mg an hour. Tongue mitral swollen. Weaning parameters borderline. Emesis during spontaneous breathing trials noted. 05/07/18: Afebrile. Remains in adequate drip at 15 mg an hour.. Will switch to clevidipine for less volume. Neurology requests discontinuation of propofol. Adding hydralazine, isosorbide and carvedilol and attempt to wean off for goal systolic blood pressure less than 110 Subjective 05/08: Currently wean off midazolam drip. Will attempt CPAP trial again today. She does have left-sided pleural effusion. Will consider arthrodesis prior to attempt extubation. Tube feeds at goal. Objective Vital Signs / I&O: Vital Signs 05/07/18 10:30 05/07/18 10:45 05/07/18 11:00 Temperature Pulse Rate 73 72 74 Respiratory Rate 43 H 18 17 Blood Pressure 117/56 L 109/53 L 115/58 L Pulse Oximetry 90 L 90 L 05/07/18 11:15 05/07/18 11:30 05/07/18 11:45 Temperature Pulse Rate 80 82 82 Respiratory Rate 16 16 16 Blood Pressure 123/60 125/58 L 127/62 Pulse Oximetry 90 L 90 L 90 L 05/07/18 12:00 05/07/18 12:03 05/07/18 14:00 Temperature 99 F Pulse Rate 79 79 80 Respiratory Rate 15 15 Blood Pressure 122/60 Pulse Oximetry 100 05/07/18 15:00 05/07/18 15:15 05/07/18 15:30 Temperature Pulse Rate 80 82 82 Respiratory Rate 14 14 15 Blood Pressure 119/58 L 127/60 134/61 Pulse Oximetry 95 96 96 05/07/18 15:45 05/07/18 15:54 05/07/18 16:00 Temperature 97.8 F Pulse Rate 82 82 84 Respiratory Rate 15 16 15 Blood Pressure 136/65 135/59 L Pulse Oximetry 98 94 L 96 05/07/18 16:15 05/07/18 16:30 05/07/18 16:45 Temperature Pulse Rate 86 88 89 Respiratory Rate 16 15 15 Blood Pressure 132/64 134/65 145/67 H Pulse Oximetry 97 97 98 05/07/18 17:00 05/07/18 17:15 05/07/18 17:30 Temperature Pulse Rate 90 89 91 H Respiratory Rate 15 14 16 Blood Pressure 145/68 H 137/64 136/65 Pulse Oximetry 98 99 98 05/07/18 17:45 05/07/18 18:00 05/07/18 19:56 Temperature Pulse Rate 90 90 Respiratory Rate 14 15 14 Blood Pressure 138/66 147/69 H Pulse Oximetry 98 95 95 05/07/18 19:58 05/07/18 20:00 05/07/18 22:00 Temperature 99.7 F H Pulse Rate 86 86 85 Respiratory Rate 14 14 Blood Pressure 136/65 Pulse Oximetry 96 05/07/18 23:38 05/08/18 00:00 05/08/18 02:00 Temperature 99.3 F Pulse Rate 85 86 86 Respiratory Rate 14 15 Blood Pressure 148/70 H Pulse Oximetry 95 96 05/08/18 03:15 05/08/18 03:28 05/08/18 03:30 Temperature Pulse Rate 88 91 H 91 H Respiratory Rate 14 14 14 Blood Pressure 157/70 H 164/74 H Pulse Oximetry 98 99 100 05/08/18 03:45 05/08/18 04:00 05/08/18 04:10 Temperature 98.6 F Pulse Rate 90 90 86 Respiratory Rate 14 15 14 Blood Pressure 159/72 H 143/62 H 134/61 Pulse Oximetry 99 99 99 05/08/18 04:15 05/08/18 04:26 05/08/18 04:29 Temperature Pulse Rate 86 86 87 Respiratory Rate 14 14 14 Blood Pressure 128/60 145/67 H 150/71 H Pulse Oximetry 99 99 97 05/08/18 04:30 05/08/18 04:45 05/08/18 04:54 Temperature Pulse Rate 87 91 H 89 Respiratory Rate 14 14 14 Blood Pressure 154/71 H 145/65 H 146/67 H Pulse Oximetry 98 98 97 05/08/18 05:00 05/08/18 05:05 05/08/18 05:15 Temperature Pulse Rate 88 86 83 Respiratory Rate 14 14 14 Blood Pressure 156/74 H 146/66 H 135/55 L Pulse Oximetry 97 98 97 05/08/18 05:24 05/08/18 05:30 05/08/18 05:34 Temperature Pulse Rate 85 86 85 Respiratory Rate 14 14 14 Blood Pressure 144/67 H 145/60 H 138/63 Pulse Oximetry 97 98 97 05/08/18 05:45 05/08/18 06:00 05/08/18 06:15 Temperature Pulse Rate 90 90 88 Respiratory Rate 14 14 14 Blood Pressure 138/65 130/64 140/65 Pulse Oximetry 98 99 98 05/08/18 06:30 05/08/18 06:45 05/08/18 07:00 Temperature Pulse Rate 86 84 88 Respiratory Rate 14 14 14 Blood Pressure 137/64 131/63 127/60 Pulse Oximetry 81 L 98 97 05/08/18 07:15 05/08/18 07:30 05/08/18 07:34 Temperature 99 F Pulse Rate 88 85 86 Respiratory Rate 14 14 Blood Pressure 142/65 H 133/61 Pulse Oximetry 97 97 05/08/18 07:45 05/08/18 07:55 05/08/18 08:00 Temperature Pulse Rate 85 85 86 Respiratory Rate 14 14 29 H Blood Pressure 133/61 162/72 H Pulse Oximetry 97 97 94 L 05/08/18 08:16 05/08/18 08:30 05/08/18 08:45 Temperature Pulse Rate 89 90 91 H Respiratory Rate 24 32 H 28 H Blood Pressure 129/69 135/63 131/61 Pulse Oximetry 94 L 93 L 92 L 05/08/18 09:00 05/08/18 09:15 05/08/18 09:30 Temperature Pulse Rate 91 H 93 H 93 H Respiratory Rate 28 H 29 H 27 H Blood Pressure 129/60 129/60 122/60 Pulse Oximetry 92 L 93 L 93 L 05/08/18 09:45 05/08/18 09:58 Temperature Pulse Rate 91 H 92 H Respiratory Rate 28 H Blood Pressure 155/70 H Pulse Oximetry 95 Intake & Output 05/07/18 05/08/18 05/08/18 18:59 06:59 18:59 Intake Total 2420 / 2420 1518 / 1518 150 / 150 Output Total 1560 / 1560 600 / 600 Balance 860 / 860 918 / 918 150 / 150 Weight 71 kg Intake: IV 950 / 950 750 / 750 150 / 150 Cleviprex Inj 25 mg In 50 ml @ 200 / 200 50 / 50 1 MG/HR 2 mls/hr IV.CONT TITRATE PRN Rx#:[id number] Versed Inj 100 mg In 100 ml @ 1 100 / 100 MG/HR 1 mls/hr IV.CONT TITRATE PRN Rx#:[id number] Diprivan 1000 mg/100 ml Inj 1, 100 / 100 100 / 100 000 mg In 100 ml @ 5 MCG/KG/MIN 1.95 mls/hr IV.CONT TITRATE PRN Rx#:[id number] Cardene Inj 25 MG In NS Inj 240 750 / 750 250 / 250 ML @ 5 MG/HR 50 mls/hr IV.CONT TITRATE PRN Rx#:[id number] Keppra 1000 mg/100 mL Premix 100 / 100 200 / 200 100 ML @ 400 mls/hr IV.SIG Q12H YUKO Rx#:[id number] Tube Feeding 1410 / 1410 668 / 668 Water Bolus Amount 60 / 60 100 / 100 Output: Urine 1000 / 1000 500 / 500 Stool 560 / 560 100 / 100 Other: # Incontinent Voids 2 2 Result Diagrams: 05/08/18 06:34 05/08/18 06:34 Other Results: Microbiology 05/03/18 08:00 Sputum - Endotracheal Gram Stain - Final 05/03/18 08:00 Sputum - Endotracheal Sputum Culture - Final Heavy growth normal respiratory maritza 05/02/18 11:30 Lumbar Puncture Gram Stain - Final 05/02/18 11:30 Lumbar Puncture CSF Culture - Final No growth in 72 hours 05/02/18 11:30 Cerebral Spinal Fluid - Lumbar Puncture Acid Fast Bacilli Smear - Final No acid fast bacilli seen 05/02/18 11:30 Cerebral Spinal Fluid - Lumbar Puncture Fungal Smear - Final No fungal elements seen Imaging: Carotid Doppler Study 05/01/18 00:00 CONCLUSION: 1. Elevation of the peak systolic velocity of the left internal carotid artery suggesting 50-69% stenosis although the ICA/CCA ratio on the left suggests less than 50% stenosis. CTA of the carotids would be helpful to resolve these discordant findings. There is also elevation of the peak systolic velocity of the left external carotid artery in the 50-69% stenosis range. 2. Less than 50% stenosis involving the right internal carotid artery. 3. Moderate atherosclerotic plaque formation within the carotid bulbs and proximal internal carotid arteries. Head MRI 05/01/18 19:26 There is vasogenic edema seen involving the posterior aspects of the parietal lobes as well as the occipital lobes bilaterally. This is similar to the prior examination. Periventricular high FLAIR signal abnormality also noted involving both cerebral hemispheres but most pronounced within the parietal lobes. This is unchanged. A small lacunar infarction involving the left abraham radiata. No hemorrhage. No acute infarction. Normal flow voids within the major intracranial vessels. Ventricles are normal in size. Orbital structures are normal. No abnormal enhancement following gadolinium. Mucosal thickening without air-fluid levels involving anterior ethmoid air cells on the right. Remaining paranasal sinuses are clear. Fluid signal seen within the mastoid air cells bilaterally but more pronounced on the left. CONCLUSION: 1. Study degraded by motion artifact. 2. Vasogenic edema involving the parietal and occipital lobes bilaterally is stable. Although not specific for this could relate to posterior reversible encephalopathy syndrome (PRES). 3. Atrophy. 4. Chronic small vessel ischemic change. Lumbar Puncture Fluoroscopy 05/02/18 00:00 CONCLUSION: 1. Uncomplicated fluoroscopically guided lumbar puncture. Abdomen/Pelvis CT 05/03/18 00:00 CONCLUSION: 1. Questionable mass within the body of the pancreas measuring 1.7 x 2.6 cm. MRI of the abdomen with contrast may be helpful for further characterization of this questionable mass if clinically indicated. 2. Gallbladder wall is mildly thickened. If there is clinical concern for acute cholecystitis, a hepatobiliary scan may be helpful to confirm cystic duct obstruction. 3. Liver is enlarged and appears somewhat nodular in contour raising the possibility of cirrhosis. No focal mass is noted. 4. Small bilateral pleural effusions with adjacent alveolar consolidations are noted. 5. Tiny pericardial effusion. 6. Minimal ascites. 7. 11 mm calcified fibroid within the uterus. 8. Degenerative changes and scoliosis of the thoracolumbar spine. Chest CT 05/03/18 00:00 CONCLUSION: 1. Small bilateral pleural effusions. 2. Posterior bibasilar alveolar consolidations consistent with compressive atelectasis and/or pneumonia. Clinical correlation is recommended. 3. Tiny pericardial effusion. 4. Cardiomegaly and coronary artery calcifications. 5. No pulmonary nodule, mass or lymphadenopathy. 6. Scoliosis and degenerative changes involving the thoracic spine. Chest X-Ray 05/03/18 07:08 CONCLUSION: 1. Improved position of the endotracheal tube which is now 3 cm above the tim. 2. Scattered bibasilar atelectasis. 3. Degenerative changes and scoliosis of the thoracic spine. Chest X-Ray 05/03/18 07:09 CONCLUSION: 1. Endotracheal tube is low in position at the level of the tim and directed towards the right mainstem bronchus. This should be pulled back 3 cm for more optimal positioning. 2. Scattered atelectatic changes bilaterally. 3. Degenerative changes and scoliosis of the thoracic spine. Abdomen MRI 05/04/18 00:00 CONCLUSION: 1. No pancreatic mass identified on MRI. 2. Bilateral pleural effusions. Moderate anasarca. Mild ascites. Chest X-Ray 05/05/18 06:00 CONCLUSION: Worsening mild consolidation and small pleural effusions at each base. New nasogastric tube coursing into the stomach, tip not included on the study. Endotracheal tube tip is about 2 cm above the tim. Chest X-Ray 05/06/18 06:00 CONCLUSION: Bibasilar areas of consolidation or atelectasis being worse on the left. Some degree of a left effusion can be considered. Chest X-Ray 05/08/18 06:00 CONCLUSION: Hazy density bilaterally which may be secondary to effusions layering posteriorly. Some degree of consolidation or atelectasis at the bases can also be considered. Objective Remarks: GENERAL: This is a 68-year-old female currently orotracheally intubated in no acute distress SKIN: Warm and dry. HEAD: Atraumatic. Normocephalic. EYES: Pupils equal and round around 3 mm bilaterally and reactive. No scleral icterus. No injection or drainage. ENT: No nasal bleeding or discharge. Mucous membranes pink and moist. Tongue less edematous and swollen NECK: Trachea midline. No JVD. CARDIOVASCULAR: Regular rate and rhythm. S1, S2. No S4. RESPIRATORY: No accessory muscle use. Patient bases with few crackles. GASTROINTESTINAL: Abdomen soft, non-tender, obese. Hepatic and splenic margins not palpable. MUSCULOSKELETAL: Extremities trace bilateral lower extremity edema. No obvious deformities. NEUROLOGICAL: Patient arousable moving all 4 extremities spontaneously to command. Positive cough and gag. Positive corneal reflex. Withdraws to pain. Assessment and Plan - Assessment and Plan Plan: Neuro/Psych: Acute encephalopathy Possible PRES History of CVA Seizure disorder NOS [place] MRI brain revealed vasogenic edema in the bilateral posterior occipital lobes. Possible differential includes PRES Evaluate Dr. Mehta/neurology. Continue aspirin 81 mg daily. Goal blood pressure between 110 120 systolic. Lumbar puncture 05/02 unremarkable Remains on levetiracetam 1000 mg twice daily for seizures Depression medication escitalopram 20 mg daily Hold gabapentin 60o mg twice daily Family medicine has patient scheduled lorazepam 1 mg every 6 hours Currently on midazolam drip at 4 mg/h for sedation while intubated Goal of RA SS -2 Daily sedation vacation persistent CV: Hypertensive emergency Hyper lipedema Peripheral vascular disease Noted 2D echocardiogram 05/01 revealed EF around 55-60 with no regional wall motion abnormalities with small pericardial effusion. Goal keep systolic blood pressure around 110-120 per neurology's recommendations Previously on hydralazine, clonidine scheduled. Switching amlodipine 10 mg daily, carvedilol 3.125 mg twice daily, hydralazine 50 3 times daily and As needed hydralazine, Nitropaste and labetalol Switch nicardipine drip to clevidipine drip maintain systolic blood pressure is 110. Continue atorvastatin 20 mg daily Carotid Dopplers revealed left stenosis 50-69%. Right less than 50%. Bumetanide 2 mg IV x1 today. Resp: Acute respiratory failure secondary angioedema [facility] 14500/1.05/11/34 Ventilator bundle Albuterol/ipratropium aerosols every 4 hours with albuterol every 2 as needed dyspnea No spontaneous breathing trials until angioedema resolving Follow-up on post intubation chest x-ray and ABG Currently on scheduled diphenhydramine 50 mg IV every 6 hours stop date 05/04, famotidine 20 mg IV twice daily and received 1 dose of methylprednisolone succinate 125 mg x1 GI: Continue tube feeding with Glucerna 1.5 goal 60 cc an hour. Noted CT abdomen/pelvis revealed pancreatic mass. The abdominal MRI no pancreatic mass. Noted normal CA 19/9, CEA and CA 125 NG tube to low intermittent wall suction currently Famotidine for GI prophylaxis Docusate serum/senna 1 tablet twice daily for bowel regimen : Currently with [place] catheter. Endo: Diabetes mellitus type 2 Gout Sliding scale insulin with aspart insulin every 6 hours low regimen Accu-Cheks to maintain euglycemia TSH 0.5-4 Holding metformin and glimepiride. Renal: Creatinine currently within normal limits Monitor urine output Acute I's and O's Heme: Monitor CBC daily. Follow trends. No indication for transfusion of blood products at this time ID: Check sputum no growth to date Monitor for signs of hematology infection FEN: Acute hypernatremia Replace electrolytes as clinically indicated per ICU electrolyte protocol Discontinue all IV fluids MSK: Right [id number] amputation PT/OT evaluate and treat Access -Utilize peripheral IV. Central line if indicated Prophylaxis -GI -famotidine -DVT -SCD/heparin subcu Level 3 follow-up
--- NOTE | 2018-05-08 10:31 | P.PNFP ---
Subjective Interval history: 68 yo female with dementia, DM, HTN admitted for hypertension related to catatonia (due likely to depression), now in ICU intubated due to angioedema. This morning is less sedated and opens eyes to voice / light touch. RN reports no concerns. RT at bedside notes she is now on CPAP trial. <Jordan Schrader S - 05/08/18 10:31> Results - Labs Result diagrams: 05/08/18 06:34 05/08/18 06:34 <Roxanna Magana - 05/08/18 10:41> Abnormal lab results 05/07/18 05/07/18 05/07/18 Range/Units 11:57 17:51 23:48 WBC (4.0-11.0) th/mm3 RBC (4.00-5.30) mil/mm3 [place] % (Auto) (0.0-8.0) % Eos % (Auto) (0.0-4.0) % [place] # (Auto) (0.0-0.9) th/mm3 Eos # (Auto) (0.0-0.4) th/mm3 Band Neuts % (Manual) (0-6) % Monocytes % (Manual) (0-8) % Eosinophils % (Manual) (0-4) % Metamyelocytes % (Man) (0-1) % Abs Neuts (Manual) (1.8-7.7) th/mm3 Sodium (136-145) meq/L Chloride (98-107) meq/L Carbon Dioxide (21.0-32.0) meq/L BUN (7-18) mg/dL Estimated GFR (>89) mL/min POC Glucose 196 H 187 H 201 H (68-110) mg/dl Random Glucose (74-106) mg/dL Calcium (8.5-10.1) mg/dL 05/08/18 05/08/18 05/08/18 Range/Units 05:53 06:34 06:34 WBC 11.8 H (4.0-11.0) th/mm3 RBC 3.84 L (4.00-5.30) mil/mm3 [place] % (Auto) 13.0 H (0.0-8.0) % Eos % (Auto) 5.1 H (0.0-4.0) % [place] # (Auto) 1.5 H (0.0-0.9) th/mm3 Eos # (Auto) 0.6 H (0.0-0.4) th/mm3 Band Neuts % (Manual) 18 H (0-6) % Monocytes % (Manual) 10 H (0-8) % Eosinophils % (Manual) 7 H (0-4) % Metamyelocytes % (Man) 2 H (0-1) % Abs Neuts (Manual) 8.0 H (1.8-7.7) th/mm3 Sodium 146 H (136-145) meq/L Chloride 117 H (98-107) meq/L Carbon Dioxide 19.4 L (21.0-32.0) meq/L BUN 27 H (7-18) mg/dL Estimated GFR 74 L (>89) mL/min POC Glucose 195 H (68-110) mg/dl Random Glucose 194 H (74-106) mg/dL Calcium 8.0 L (8.5-10.1) mg/dL Short CBC 05/08/18 Range/Units 06:34 WBC 11.8 H (4.0-11.0) th/mm3 Hgb 12.0 (11.6-15.3) gm/dL Hct 36.2 (35.0-46.0) % Plt Count 330 (150-450) th/mm3 BMP 05/08/18 06:34 Sodium 146 H Potassium 3.7 Chloride 117 H Carbon Dioxide 19.4 L BUN 27 H Creatinine 0.78 Calcium 8.0 L <Roxanna Magana - 05/08/18 10:41> Abnormal lab results 05/07/18 05/07/18 05/07/18 Range/Units 11:57 17:51 23:48 WBC (4.0-11.0) th/mm3 RBC (4.00-5.30) mil/mm3 [place] % (Auto) (0.0-8.0) % Eos % (Auto) (0.0-4.0) % [place] # (Auto) (0.0-0.9) th/mm3 Eos # (Auto) (0.0-0.4) th/mm3 Band Neuts % (Manual) (0-6) % Monocytes % (Manual) (0-8) % Eosinophils % (Manual) (0-4) % Metamyelocytes % (Man) (0-1) % Abs Neuts (Manual) (1.8-7.7) th/mm3 Sodium (136-145) meq/L Chloride (98-107) meq/L Carbon Dioxide (21.0-32.0) meq/L BUN (7-18) mg/dL Estimated GFR (>89) mL/min POC Glucose 196 H 187 H 201 H (68-110) mg/dl Random Glucose (74-106) mg/dL Calcium (8.5-10.1) mg/dL 05/08/18 05/08/18 05/08/18 Range/Units 05:53 06:34 06:34 WBC 11.8 H (4.0-11.0) th/mm3 RBC 3.84 L (4.00-5.30) mil/mm3 [place] % (Auto) 13.0 H (0.0-8.0) % Eos % (Auto) 5.1 H (0.0-4.0) % [place] # (Auto) 1.5 H (0.0-0.9) th/mm3 Eos # (Auto) 0.6 H (0.0-0.4) th/mm3 Band Neuts % (Manual) 18 H (0-6) % Monocytes % (Manual) 10 H (0-8) % Eosinophils % (Manual) 7 H (0-4) % Metamyelocytes % (Man) 2 H (0-1) % Abs Neuts (Manual) 8.0 H (1.8-7.7) th/mm3 Sodium 146 H (136-145) meq/L Chloride 117 H (98-107) meq/L Carbon Dioxide 19.4 L (21.0-32.0) meq/L BUN 27 H (7-18) mg/dL Estimated GFR 74 L (>89) mL/min POC Glucose 195 H (68-110) mg/dl Random Glucose 194 H (74-106) mg/dL Calcium 8.0 L (8.5-10.1) mg/dL Short CBC 05/08/18 Range/Units 06:34 WBC 11.8 H (4.0-11.0) th/mm3 Hgb 12.0 (11.6-15.3) gm/dL Hct 36.2 (35.0-46.0) % Plt Count 330 (150-450) th/mm3 BMP 05/08/18 06:34 Sodium 146 H Potassium 3.7 Chloride 117 H Carbon Dioxide 19.4 L BUN 27 H Creatinine 0.78 Calcium 8.0 L <Brian Jordan Tyson S - 05/08/18 10:31> - Imaging Impressions Chest X-Ray 05/08/18 06:00 CONCLUSION: Hazy density bilaterally which may be secondary to effusions layering posteriorly. Some degree of consolidation or atelectasis at the bases can also be considered. <Roxanna Magana M - 05/08/18 10:41> Impressions Chest X-Ray 05/08/18 06:00 CONCLUSION: Hazy density bilaterally which may be secondary to effusions layering posteriorly. Some degree of consolidation or atelectasis at the bases can also be considered. <Brian Jordan Tyson S - 05/08/18 10:31> Physical Exam Vital signs: Vital Signs 05/07/18 10:45 05/07/18 11:00 05/07/18 11:15 Temperature Pulse Rate 72 74 80 Respiratory Rate 18 17 16 Blood Pressure 109/53 L 115/58 L 123/60 Pulse Oximetry 90 L 90 L 90 L 05/07/18 11:30 05/07/18 11:45 05/07/18 12:00 Temperature 99 F Pulse Rate 82 82 79 Respiratory Rate 16 16 15 Blood Pressure 125/58 L 127/62 122/60 Pulse Oximetry 90 L 90 L 100 05/07/18 12:03 05/07/18 14:00 05/07/18 15:00 Temperature Pulse Rate 79 80 80 Respiratory Rate 15 14 Blood Pressure 119/58 L Pulse Oximetry 95 05/07/18 15:15 05/07/18 15:30 05/07/18 15:45 Temperature Pulse Rate 82 82 82 Respiratory Rate 14 15 15 Blood Pressure 127/60 134/61 136/65 Pulse Oximetry 96 96 98 05/07/18 15:54 05/07/18 16:00 05/07/18 16:15 Temperature 97.8 F Pulse Rate 82 84 86 Respiratory Rate 16 15 16 Blood Pressure 135/59 L 132/64 Pulse Oximetry 94 L 96 97 05/07/18 16:30 05/07/18 16:45 05/07/18 17:00 Temperature Pulse Rate 88 89 90 Respiratory Rate 15 15 15 Blood Pressure 134/65 145/67 H 145/68 H Pulse Oximetry 97 98 98 05/07/18 17:15 05/07/18 17:30 05/07/18 17:45 Temperature Pulse Rate 89 91 H 90 Respiratory Rate 14 16 14 Blood Pressure 137/64 136/65 138/66 Pulse Oximetry 99 98 98 05/07/18 18:00 05/07/18 19:56 05/07/18 19:58 Temperature Pulse Rate 90 86 Respiratory Rate 15 14 14 Blood Pressure 147/69 H Pulse Oximetry 95 95 05/07/18 20:00 05/07/18 22:00 05/07/18 23:38 Temperature 99.7 F H Pulse Rate 86 85 85 Respiratory Rate 14 14 Blood Pressure 136/65 Pulse Oximetry 96 95 05/08/18 00:00 05/08/18 02:00 05/08/18 03:15 Temperature 99.3 F Pulse Rate 86 86 88 Respiratory Rate 15 14 Blood Pressure 148/70 H 157/70 H Pulse Oximetry 96 98 05/08/18 03:28 05/08/18 03:30 05/08/18 03:45 Temperature Pulse Rate 91 H 91 H 90 Respiratory Rate 14 14 14 Blood Pressure 164/74 H 159/72 H Pulse Oximetry 99 100 99 05/08/18 04:00 05/08/18 04:10 05/08/18 04:15 Temperature 98.6 F Pulse Rate 90 86 86 Respiratory Rate 15 14 14 Blood Pressure 143/62 H 134/61 128/60 Pulse Oximetry 99 99 99 05/08/18 04:26 05/08/18 04:29 05/08/18 04:30 Temperature Pulse Rate 86 87 87 Respiratory Rate 14 14 14 Blood Pressure 145/67 H 150/71 H 154/71 H Pulse Oximetry 99 97 98 05/08/18 04:45 05/08/18 04:54 05/08/18 05:00 Temperature Pulse Rate 91 H 89 88 Respiratory Rate 14 14 14 Blood Pressure 145/65 H 146/67 H 156/74 H Pulse Oximetry 98 97 97 05/08/18 05:05 05/08/18 05:15 05/08/18 05:24 Temperature Pulse Rate 86 83 85 Respiratory Rate 14 14 14 Blood Pressure 146/66 H 135/55 L 144/67 H Pulse Oximetry 98 97 97 05/08/18 05:30 05/08/18 05:34 05/08/18 05:45 Temperature Pulse Rate 86 85 90 Respiratory Rate 14 14 14 Blood Pressure 145/60 H 138/63 138/65 Pulse Oximetry 98 97 98 05/08/18 06:00 05/08/18 06:15 05/08/18 06:30 Temperature Pulse Rate 90 88 86 Respiratory Rate 14 14 14 Blood Pressure 130/64 140/65 137/64 Pulse Oximetry 99 98 81 L 05/08/18 06:45 05/08/18 07:00 05/08/18 07:15 Temperature Pulse Rate 84 88 88 Respiratory Rate 14 14 14 Blood Pressure 131/63 127/60 142/65 H Pulse Oximetry 98 97 97 05/08/18 07:30 05/08/18 07:34 05/08/18 07:45 Temperature 99 F Pulse Rate 85 86 85 Respiratory Rate 14 14 Blood Pressure 133/61 133/61 Pulse Oximetry 97 97 05/08/18 07:55 05/08/18 08:00 05/08/18 08:16 Temperature Pulse Rate 85 86 89 Respiratory Rate 14 29 H 24 Blood Pressure 162/72 H 129/69 Pulse Oximetry 97 94 L 94 L 05/08/18 08:30 05/08/18 08:45 05/08/18 09:00 Temperature Pulse Rate 90 91 H 91 H Respiratory Rate 32 H 28 H 28 H Blood Pressure 135/63 131/61 129/60 Pulse Oximetry 93 L 92 L 92 L 05/08/18 09:15 05/08/18 09:30 05/08/18 09:45 Temperature Pulse Rate 93 H 93 H 91 H Respiratory Rate 29 H 27 H 28 H Blood Pressure 129/60 122/60 155/70 H Pulse Oximetry 93 L 93 L 95 05/08/18 09:58 Temperature Pulse Rate 92 H Respiratory Rate Blood Pressure Pulse Oximetry Intake & Output 05/07/18 05/08/18 05/08/18 18:59 06:59 18:59 Intake Total 2420 / 2420 1518 / 1518 150 / 150 Output Total 1560 / 1560 600 / 600 Balance 860 / 860 918 / 918 150 / 150 Weight 71 kg Intake: IV 950 / 950 750 / 750 150 / 150 Cleviprex Inj 25 mg In 50 ml @ 200 / 200 50 / 50 1 MG/HR 2 mls/hr IV.CONT TITRATE PRN Rx#:[id number] Versed Inj 100 mg In 100 ml @ 1 100 / 100 MG/HR 1 mls/hr IV.CONT TITRATE PRN Rx#:[id number] Diprivan 1000 mg/100 ml Inj 1, 100 / 100 100 / 100 000 mg In 100 ml @ 5 MCG/KG/MIN 1.95 mls/hr IV.CONT TITRATE PRN Rx#:[id number] Cardene Inj 25 MG In NS Inj 240 750 / 750 250 / 250 ML @ 5 MG/HR 50 mls/hr IV.CONT TITRATE PRN Rx#:[id number] Keppra 1000 mg/100 mL Premix 100 / 100 200 / 200 100 ML @ 400 mls/hr IV.SIG Q12H [facility] Rx#:[id number] Tube Feeding 1410 / 1410 668 / 668 Water Bolus Amount 60 / 60 100 / 100 Output: Urine 1000 / 1000 500 / 500 Stool 560 / 560 100 / 100 Other: # Incontinent Voids 2 2 <Roxanna Magana M - 05/08/18 10:41> Vital Signs 05/07/18 10:30 05/07/18 10:45 05/07/18 11:00 Temperature Pulse Rate 73 72 74 Respiratory Rate 43 H 18 17 Blood Pressure 117/56 L 109/53 L 115/58 L Pulse Oximetry 90 L 90 L 05/07/18 11:15 05/07/18 11:30 05/07/18 11:45 Temperature Pulse Rate 80 82 82 Respiratory Rate 16 16 16 Blood Pressure 123/60 125/58 L 127/62 Pulse Oximetry 90 L 90 L 90 L 05/07/18 12:00 05/07/18 12:03 05/07/18 14:00 Temperature 99 F Pulse Rate 79 79 80 Respiratory Rate 15 15 Blood Pressure 122/60 Pulse Oximetry 100 05/07/18 15:00 05/07/18 15:15 05/07/18 15:30 Temperature Pulse Rate 80 82 82 Respiratory Rate 14 14 15 Blood Pressure 119/58 L 127/60 134/61 Pulse Oximetry 95 96 96 05/07/18 15:45 05/07/18 15:54 05/07/18 16:00 Temperature 97.8 F Pulse Rate 82 82 84 Respiratory Rate 15 16 15 Blood Pressure 136/65 135/59 L Pulse Oximetry 98 94 L 96 05/07/18 16:15 05/07/18 16:30 05/07/18 16:45 Temperature Pulse Rate 86 88 89 Respiratory Rate 16 15 15 Blood Pressure 132/64 134/65 145/67 H Pulse Oximetry 97 97 98 05/07/18 17:00 05/07/18 17:15 05/07/18 17:30 Temperature Pulse Rate 90 89 91 H Respiratory Rate 15 14 16 Blood Pressure 145/68 H 137/64 136/65 Pulse Oximetry 98 99 98 05/07/18 17:45 05/07/18 18:00 05/07/18 19:56 Temperature Pulse Rate 90 90 Respiratory Rate 14 15 14 Blood Pressure 138/66 147/69 H Pulse Oximetry 98 95 95 05/07/18 19:58 05/07/18 20:00 05/07/18 22:00 Temperature 99.7 F H Pulse Rate 86 86 85 Respiratory Rate 14 14 Blood Pressure 136/65 Pulse Oximetry 96 05/07/18 23:38 05/08/18 00:00 05/08/18 02:00 Temperature 99.3 F Pulse Rate 85 86 86 Respiratory Rate 14 15 Blood Pressure 148/70 H Pulse Oximetry 95 96 05/08/18 03:15 05/08/18 03:28 05/08/18 03:30 Temperature Pulse Rate 88 91 H 91 H Respiratory Rate 14 14 14 Blood Pressure 157/70 H 164/74 H Pulse Oximetry 98 99 100 05/08/18 03:45 05/08/18 04:00 05/08/18 04:10 Temperature 98.6 F Pulse Rate 90 90 86 Respiratory Rate 14 15 14 Blood Pressure 159/72 H 143/62 H 134/61 Pulse Oximetry 99 99 99 05/08/18 04:15 05/08/18 04:26 05/08/18 04:29 Temperature Pulse Rate 86 86 87 Respiratory Rate 14 14 14 Blood Pressure 128/60 145/67 H 150/71 H Pulse Oximetry 99 99 97 05/08/18 04:30 05/08/18 04:45 05/08/18 04:54 Temperature Pulse Rate 87 91 H 89 Respiratory Rate 14 14 14 Blood Pressure 154/71 H 145/65 H 146/67 H Pulse Oximetry 98 98 97 05/08/18 05:00 05/08/18 05:05 05/08/18 05:15 Temperature Pulse Rate 88 86 83 Respiratory Rate 14 14 14 Blood Pressure 156/74 H 146/66 H 135/55 L Pulse Oximetry 97 98 97 05/08/18 05:24 05/08/18 05:30 05/08/18 05:34 Temperature Pulse Rate 85 86 85 Respiratory Rate 14 14 14 Blood Pressure 144/67 H 145/60 H 138/63 Pulse Oximetry 97 98 97 05/08/18 05:45 05/08/18 06:00 05/08/18 06:15 Temperature Pulse Rate 90 90 88 Respiratory Rate 14 14 14 Blood Pressure 138/65 130/64 140/65 Pulse Oximetry 98 99 98 05/08/18 06:30 05/08/18 06:45 05/08/18 07:00 Temperature Pulse Rate 86 84 88 Respiratory Rate 14 14 14 Blood Pressure 137/64 131/63 127/60 Pulse Oximetry 81 L 98 97 05/08/18 07:15 05/08/18 07:30 05/08/18 07:34 Temperature 99 F Pulse Rate 88 85 86 Respiratory Rate 14 14 Blood Pressure 142/65 H 133/61 Pulse Oximetry 97 97 05/08/18 07:45 05/08/18 07:55 05/08/18 08:00 Temperature Pulse Rate 85 85 86 Respiratory Rate 14 14 29 H Blood Pressure 133/61 162/72 H Pulse Oximetry 97 97 94 L 05/08/18 08:16 05/08/18 08:30 05/08/18 08:45 Temperature Pulse Rate 89 90 91 H Respiratory Rate 24 32 H 28 H Blood Pressure 129/69 135/63 131/61 Pulse Oximetry 94 L 93 L 92 L 05/08/18 09:00 05/08/18 09:15 05/08/18 09:30 Temperature Pulse Rate 91 H 93 H 93 H Respiratory Rate 28 H 29 H 27 H Blood Pressure 129/60 129/60 122/60 Pulse Oximetry 92 L 93 L 93 L 05/08/18 09:45 05/08/18 09:58 Temperature Pulse Rate 91 H 92 H Respiratory Rate 28 H Blood Pressure 155/70 H Pulse Oximetry 95 Intake & Output 05/07/18 05/08/18 05/08/18 18:59 06:59 18:59 Intake Total 2420 / 2420 1518 / 1518 150 / 150 Output Total 1560 / 1560 600 / 600 Balance 860 / 860 918 / 918 150 / 150 Weight 71 kg Intake: IV 950 / 950 750 / 750 150 / 150 Cleviprex Inj 25 mg In 50 ml @ 200 / 200 50 / 50 1 MG/HR 2 mls/hr IV.CONT TITRATE PRN Rx#:[id number] Versed Inj 100 mg In 100 ml @ 1 100 / 100 MG/HR 1 mls/hr IV.CONT TITRATE PRN Rx#:[id number] Diprivan 1000 mg/100 ml Inj 1, 100 / 100 100 / 100 000 mg In 100 ml @ 5 MCG/KG/MIN 1.95 mls/hr IV.CONT TITRATE PRN Rx#:[id number] Cardene Inj 25 MG In NS Inj 240 750 / 750 250 / 250 ML @ 5 MG/HR 50 mls/hr IV.CONT TITRATE PRN Rx#:[id number] Keppra 1000 mg/100 mL Premix 100 / 100 200 / 200 100 ML @ 400 mls/hr IV.SIG Q12H [facility] Rx#:[id number] Tube Feeding 1410 / 1410 668 / 668 Water Bolus Amount 60 / 60 100 / 100 Output: Urine 1000 / 1000 500 / 500 Stool 560 / 560 100 / 100 Other: # Incontinent Voids 2 2 <Jordan Schrader S 05/08/18 10:31> - Constitutional no acute distress, average body habitus <Jordan Schrader 05/08/18 10:31> Comments: intubated <Jordan Schrader 05/08/18 10:31> - Routine HEENT Exam ENT: Present: mucous membranes moist <Jordan Schrader S 05/08/18 10:31> - Routine Respiratory Exam Present: CTA bilaterally. Absent: accessory muscle use, wheezes, crackles < Jordan Schrader S 05/08/18 10:31> - Routine Cardiovascular Exam Present: RRR, S1, S2. Absent: murmur <Jordan Schrader S 05/08/18 10:31> - Routine Abdominal Exam Present: soft <Jordan Schrader S 05/08/18 10:31> - Routine Extremities Exam Absent: cyanosis, edema <Jordan Schrader S 05/08/18 10:31> Comments: s/p RLE above knee amputation <Jordan Schrader S 05/08/18 10:31> - Urinary Catheter Management Straight Cath placed during this visit: no <Roxanna Magana - 05/08/18 10:41> no <Jordan Schrader S 05/08/18 10:31> Assessment and Plan - Assessment (1) Acute respiratory failure Code(s): J96.00 - Acute respiratory failure, unspecified whether with hypoxia or hypercapnia Status: Acute (2) Angioedema Code(s): T78.3XXA - Angioneurotic edema, initial encounter Status: Acute (3) Catatonia associated with another mental disorder Code(s): F06.1 - Catatonic disorder due to known physiological condition Status: Acute (4) PRES (posterior reversible encephalopathy syndrome) Code(s): I67.83 - Posterior reversible encephalopathy syndrome Status: Acute (5) HTN (hypertension) Code(s): I10 - Essential (primary) hypertension Status: Acute (6) Seizures Code(s): R56.9 - Unspecified convulsions Status: Acute (7) Hyperlipidemia Code(s): E78.5 - Hyperlipidemia, unspecified Status: Chronic (8) Diabetes Code(s): E11.9 - Type 2 diabetes mellitus without complications Status: Chronic (9) Diarrhea Code(s): R19.7 - Diarrhea, unspecified Status: Resolved (10) Clavicle fracture Code(s): S42.009A - Fracture of unspecified part of unspecified clavicle, initial encounter for closed fracture Status: Acute (11) Nutrition, metabolism, and development symptoms Code(s): R63.8 - Other symptoms and signs concerning food and fluid intake Status: Acute <Roxanna Magana - 05/08/18 10:41> (1) Acute respiratory failure Code(s): J96.00 - Acute respiratory failure, unspecified whether with hypoxia or hypercapnia Status: Acute (2) Angioedema Code(s): T78.3XXA - Angioneurotic edema, initial encounter Status: Acute (3) Catatonia associated with another mental disorder Code(s): F06.1 - Catatonic disorder due to known physiological condition Status: Acute (4) PRES (posterior reversible encephalopathy syndrome) Code(s): I67.83 - Posterior reversible encephalopathy syndrome Status: Acute (5) HTN (hypertension) Code(s): I10 - Essential (primary) hypertension Status: Acute (6) Seizures Code(s): R56.9 - Unspecified convulsions Status: Acute (7) Hyperlipidemia Code(s): E78.5 - Hyperlipidemia, unspecified Status: Chronic (8) Diabetes Code(s): E11.9 - Type 2 diabetes mellitus without complications Status: Chronic (9) Diarrhea Code(s): R19.7 - Diarrhea, unspecified Status: Resolved (10) Clavicle fracture Code(s): S42.009A - Fracture of unspecified part of unspecified clavicle, initial encounter for closed fracture Status: Acute (11) Nutrition, metabolism, and development symptoms Code(s): R63.8 - Other symptoms and signs concerning food and fluid intake Status: Acute <Brian R3,Jordan S - 05/08/18 10:25> - Assessment and Plan 68 yo female with dementia, HTN, DM admitted with: Catatonia Medical work-up has been negative except for PRES. Given that her altered mental status preceded her hypertension it is likely that the root cause of her altered mental state is catatonia. She does have a component of PRES by MRI but this is most likely due to hypertension caused by catatonia rather than primary hypertension leading to encephalopathy, especially since her mental status changes preceded the MRI findings that suggested PRES. CBC and CK within normal limits; no signs of NMS ABG essentially normal Ammonia very slightly elevated, unlikely to be etiology of her mental status LATONYA screen positive, titer pending RF negative RPR negative ESR normal * Continue Lexapro and Seroquel * Ativan stopped due to hypotension, respiratory failure from angioedema * Psychiatry consulted, appreciate assistance * Only treatment likely to improve her depression/catatonia is ECT - ongoing discussion to make arrangements to transfer her to a facility that performs ECT , however she is not stable for transfer at the moment. * CT abdomen/pelvis showed questionable pancreatic mass, ruled out by MRI * Normal CA-19/9, CEA and CA-125 * Manage hypertension as noted below Acute Respiratory Failure due to angioedema Now intubated, on CPAP trial * CCM consulted, appreciate assistance * Intubated 12/28 * Completed treatment with H1/H2 anayeli and steroid * Duonebs Q4H * Hopeful for extubation in the next day or so as angioedema resolves and breathing trials started PRES MRI findings suggestive of possible PRES * Neurology following, appreciate assistance * had improved neurologically as of 05/06 * Check paraneoplastic labs * Control BP as below Hypertension BP still intermittently elevated likely related to catatonia Difficulty taking PO meds due to fluctuating mental status * Due to PRES needs tighter BP control per neurology: goal SBP 110-120 * Continue clevidipine drip titrated to target BP < 120/90 (switched from nicardipine to decrease IVF volume) * IV Hydralazine and labetalol as needed for BP control * Transitioning to PO meds * Hydralazine 25 mg TID * Coreg 3.125 mg BID * Isosorbide dinitrate 5 mg TIDAC * Amlodipine 5 mg daily Seizure Disorder Now with possible repeat seizure vs (more likely) catalepsy from catatonia EEG with nonspecific encephalopathy MRI/MRA unremarkable except for ?PRES as noted LP performed 05/02/18 - chemistries / cultures normal so far * Neurology on board, appreciate assistance * Continue Keppra to 1000 mg IV BID * Control BP as part of PRES management * Treat catatonia as above Diabetes mellitus BG at hospital goal now * Check sugar Q6H now that she is on continuous tube feedings * Holding metformin for now * Low dose SSI Hyperlipidemia * Continue home atorvastatin Diarrhea C difficile negative * Most likely normal due to tube feeds and patient being NPO before tube feeds were initiated * Continue to monitor * Rectal tube currently for comfort, ulcer prevention Right conot-pui-ahmg amputation PT/OT evaluate and treat once more able to cooperate Clavicle Fracture, right RUE neurovascularly intact, no deformity noted * Monitor clinically * WBAT RUE Fluids: Tube feeds and drips only, no running IVF Diet: Tube feed only at the moment * Consulted flat ironer, appreciate recs * Glucerna 1.5 @ 60 mL/hr * ST can reevaluate once extubated for likely resumption of her diet GI: Famotidine Docusate serum/senna 1 tablet twice daily for bowel regimen DVT: Heparin BID ICU electrolyte replacement protocol <Jordan Schrader - 05/08/18 10:31> Discharge Planning: Pending improvement of respiratory status, neurologic work- up. Once extubated and BP stable on oral agents, likely would benefit from ECT unless her mental status has improved after extubation; pending psychiatry assistance and neurology clearance. <Jordan Schrader - 05/08/18 10:31> - Attending Attestation The exam, history, and the medical decision-making described in the above note were completed with the assistance of the resident physician. I reviewed and agree with the findings presented. I attest that I had a [id number] encounter with the patient on the same day, and personally performed and documented my assessment and findings in the medical record. after discussions with Psychiatry and Neurology the following plan seems prudent : catatonia-if she is improved mentally (which cannot be really assessed until she is off her vent) and BP garcia, her ECT can be delayed or dispensed with BP-her BP has required frequent adjustments iv because of the catatonia. catatonia can cause autonomic instability which she has exhibited. if her BPs are able to be stabilized with po she may not need ECT otherwise the ECT would prevent her PRES getting worse and fix her BPs Per Psychiatry, there are no contraindications to ECT as it "fixes everything" including the depression, BP and all the other issues. However, research can be done into ECT when someone has PRES as both catatonia and PRES are not very common. Per Neurology, it would be better to let her PRES heal which can take a month A decision will have to be made after she gets off her vent to see the best course of action <Roxanna Magana - 05/08/18 10:41> <Roxanna Magana - Last Filed: 05/08/18 10:41> (2) Angioedema Qualifiers: Encounter type: initial encounter Qualified Code(s): T78.3XXA - Angioneurotic edema, initial encounter (5) HTN (hypertension) Qualifiers: Hypertension type: other secondary hypertension Qualified Code(s): I15.8 - Other secondary hypertension (7) Hyperlipidemia Qualifiers: Hyperlipidemia type: pure hypercholesterolemia Qualified Code(s): E78.00 - Pure hypercholesterolemia, unspecified; E78.0 - Pure hypercholesterolemia (8) Diabetes Qualifiers: Diabetes mellitus type: type 2 Diabetes mellitus assisted insulin use: unspecified assisted insulin use status Diabetes mellitus complication status : with circulatory complication Diabetes mellitus complication detail: with peripheral angiopathy without gangrene Qualified Code(s): E11.51 - Type 2 diabetes mellitus with diabetic peripheral angiopathy without gangrene (10) Clavicle fracture Qualifiers: Encounter type: subsequent encounter Fracture type: closed Laterality: right <Roxanna Magana M - Last Filed: 05/08/18 10:41> (2) Angioedema Qualifiers: Encounter type: initial encounter Qualified Code(s): T78.3XXA - Angioneurotic edema, initial encounter (5) HTN (hypertension) Qualifiers: Hypertension type: other secondary hypertension Qualified Code(s): I15.8 - Other secondary hypertension (7) Hyperlipidemia Qualifiers: Hyperlipidemia type: pure hypercholesterolemia Qualified Code(s): E78.00 - Pure hypercholesterolemia, unspecified; E78.0 - Pure hypercholesterolemia (8) Diabetes Qualifiers: Diabetes mellitus type: type 2 Diabetes mellitus assisted insulin use: unspecified supervisor [employer] insulin use status Diabetes mellitus complication status : with circulatory complication Diabetes mellitus complication detail: with peripheral angiopathy without gangrene Qualified Code(s): E11.51 - Type 2 diabetes mellitus with diabetic peripheral angiopathy without gangrene (10) Clavicle fracture Qualifiers: Encounter type: subsequent encounter Fracture type: closed Laterality: right
--- NOTE | 2018-05-08 10:38 | P.PNNEU ---
Subjective Active Medications: Active Medications Acetaminophen (Tylenol Liq) 650 mg NG/OG Q6H PRN PRN Reason: PAIN 1-10 AND/OR FEVER >101F Al Hydroxide/Mg Hydroxide (Milk Of Magnesia Liq) 30 ml PO Q12H PRN PRN Reason: Mild Constipation Albuterol (Duoneb Neb (Eloy)) 1 ampul NEB Q4HR NEB [facility] Last Admin: 05/08/18 07:55 Dose: 1 ampul Albuterol (Albuterol Neb (Prn)) 2.5 mg NEB Q2HR NEB PRN PRN Reason: DYSPNEA Amlodipine Besylate (Norvasc) 10 mg PO DAILY [facility] Artificial Tears (Tears Naturale Opth Drops) 1 drop EACH EYE Q8H [facility] Last Admin: 05/08/18 06:10 Dose: Not Given Aspirin (Aspirin Chew) 81 mg NG/OG DAILY [facility] Last Admin: 05/08/18 08:04 Dose: 81 mg Atorvastatin Calcium (Lipitor) 40 mg NG/OG HS [facility] Last Admin: 05/07/18 20:43 Dose: 40 mg Bisacodyl (Dulcolax Supp) 10 mg RECTAL DAILY PRN PRN Reason: SEVERE CONSITIPATION Bumetanide (Bumex Inj) 2 mg IV.PUSH ONCE ONE Stop: 05/08/18 10:46 Carvedilol (Coreg) 3.125 mg PO BID [facility] Last Admin: 05/08/18 08:03 Dose: 3.125 mg Chlorhexidine Gluconate (Peridex 0.12% Oral Kit) 15 ml OROPHARYNG BID@0800, 2000 [facility] Last Admin: 05/08/18 08:04 Dose: 15 ml Dextrose (D50w Vial) 50 ml IV.PUSH UNSCH PRN PRN Reason: PER HYPOGLYCEMIA PROTOCOL Famotidine (Pepcid Pf Inj) 20 mg IV.PUSH Q12HR [facility] Last Admin: 05/08/18 08:03 Dose: 20 mg Gabapentin (Neurontin) 600 mg PO BID [facility] Last Admin: 05/01/18 08:56 Dose: Not Given Glucagon (Glucagon Inj) 1 mg OTHER PRN PRN PRN Reason: for Hypoglycemia Protocol Heparin Sodium (Porcine) (Heparin Inj) 5,000 units SQ Q12HR [facility] Last Admin: 05/08/18 08:03 Dose: 5,000 units Hydralazine HCl (Apresoline) 25 mg NG/OG QID PRN PRN Reason: SEE LABEL COMMENTS Last Admin: 05/06/18 16:40 Dose: 25 mg Hydralazine HCl (Apresoline Inj) 10 mg IV.PUSH Q1H PRN PRN Reason: sbp > 140 Last Admin: 05/06/18 15:58 Dose: 10 mg Hydralazine HCl (Apresoline) 50 mg PO TID [facility] Levetiracetam (Keppra 1000 Mg/100 Ml Premix) 100 mls @ 400 mls/hr IV.SIG Q12H [facility] Last Infusion: 05/08/18 02:08 Dose: Infused Fentanyl (Fentanyl 10 Mcg/Ml Premix Drip) 2,500 mcg in 250 mls @ 5 mls/hr IV.SIG TITRATE PRN; Protocol PRN Reason: Per Protocol Magnesium Sulfate 4 gm/ Sodium (Chloride) 100 mls @ 50 mls/hr IV.SIG UNSCH PRN PRN Reason: For Magnesium 0.9 - 1.1 mg/dL Magnesium Sulfate 2 gm/ Sodium (Chloride) 100 mls @ 50 mls/hr IV.SIG UNSCH PRN PRN Reason: For Magnesium 1.2 - 1.6 mg/dL Potassium Chloride (Kcl 40 Meq Premix Inj) 40 meq in 100 mls @ 25 mls/hr IV.SIG Q2H PRN PRN Reason: For Potassium 2.8 - 3.2 mEq/L Potassium Chloride (Kcl 20 Meq Premix Inj) 20 meq in 100 mls @ 50 mls/hr IV.SIG Q2H PRN PRN Reason: For Potassium 3.3 - 3.5 mEq/L Last Infusion: 05/04/18 12:43 Dose: Infused Potassium Chloride (Kcl 40 Meq Premix Inj) 40 meq in 100 mls @ 25 mls/hr IV.SIG UNSCH PRN PRN Reason: For Potassium 3.3 - 3.5 mEq/L Potassium Chloride (Kcl 20 Meq Premix Inj) 20 meq in 100 mls @ 50 mls/hr IV.SIG Q2H PRN PRN Reason: For Potassium 2.8 - 3.2 mEq/L Potassium Phosphate 30 mmol/ (Sodium Chloride) 260 mls @ 42 mls/hr IV.SIG UNSCH PRN PRN Reason: SEE LABEL COMMENTS Sodium Phosphate 30 mmol/ (Sodium Chloride) 260 mls @ 42 mls/hr IV.SIG UNSCH PRN PRN Reason: For Phosphorus < 2.5 mg/dL Clevidipine (Cleviprex Inj) 25 mg in 50 mls @ 2 mls/hr IV.CONT TITRATE PRN; Protocol PRN Reason: Per protocol Last Admin: 05/08/18 08:18 Dose: 19 mg/hr, 38 mls/hr Midazolam HCl (Versed Inj) 100 mg in 100 mls @ 1 mls/hr IV.CONT TITRATE PRN; Protocol PRN Reason: See protocol Last Admin: 05/08/18 08:19 Dose: 2 mg/hr, 2 mls/hr Insulin Aspart (Novolog Insulin Correctional Sugar Inj) 0 unit SQ Q6HR [facility]; Protocol Last Admin: 05/08/18 06:10 Dose: 1 unit Isosorbide Dinitrate (Isordil) 5 mg PO TIDAC [facility] Last Admin: 05/08/18 08:03 Dose: 5 mg Labetalol HCl (Trandate Inj) 10 mg IV.PUSH Q1H PRN PRN Reason: Sbp>140, Dbp>90, Hr>65 Last Admin: 05/07/18 06:17 Dose: 10 mg Lactulose (Lactulose Liq) 30 ml PO DAILY PRN PRN Reason: SEVERE CONSITIPATION Magnesium Oxide (Mag-Ox) 800 mg PO UNSCH PRN PRN Reason: For Magnesium 1.2 - 1.6 mg/dL Metolazone (Zaroxolyn) 2.5 mg PO ONCE ONE Stop: 05/08/18 10:46 Miscellaneous Medication () 1 each OROPHARYNG 0000,0400,1200,1600 [facility] Last Admin: 05/08/18 05:16 Dose: 1 each Ondansetron HCl (Zofran Inj) 4 mg IV.PUSH Q6H PRN PRN Reason: NAUSEA Potassium Bicarb/Potassium Chloride (K-Lyte Cl Eff) 50 meq PO UNSCH PRN PRN Reason: For Potassium 3.3 - 3.5 mEq/L Potassium Phosphate (K-Phos Original) 2,000 mg PO Q4H PRN PRN Reason: Phosphorus Less Than 2.5 mg/dL Potassium Phosphate (K-Phos Original) 2,000 mg PO UNSCH PRN PRN Reason: SEE LABEL COMMENTS Senna/Docusate Sodium (Aleah-Colace) 1 tab PO BID [facility] Last Admin: 05/08/18 08:04 Dose: Not Given Sennosides (Senokot) 17.2 mg PO Q12H PRN PRN Reason: Moderate Constipation Sodium Chloride (Ns Flush) 2 ml IV.FLUSH BID [facility] Last Admin: 05/08/18 08:04 Dose: 2 ml Sodium Chloride (Ns Flush) 2 ml IV.FLUSH UNSCH PRN PRN Reason: FLUSH AFTER USING IV ACCESS Last Admin: 05/06/18 08:32 Dose: 2 ml Thiamine HCl (Thiamine Inj) 100 mg IM DAILY [facility] Last Admin: 05/08/18 08:03 Dose: 100 mg Allergies/Adverse Reactions: Allergies Allergy/AdvReac Type Severity Reaction Status Date / Time JACE Inhibitors Allergy Swelling Verified 05/06/18 12:26 of Lip/Tongue/Throat iodine Allergy Swelling Verified 04/19/18 15:50 Physical Exam Vital signs: Vital Signs 05/07/18 10:45 05/07/18 11:00 05/07/18 11:15 Temperature Pulse Rate 72 74 80 Respiratory Rate 18 17 16 Blood Pressure 109/53 L 115/58 L 123/60 Pulse Oximetry 90 L 90 L 90 L 05/07/18 11:30 05/07/18 11:45 05/07/18 12:00 Temperature 99 F Pulse Rate 82 82 79 Respiratory Rate 16 16 15 Blood Pressure 125/58 L 127/62 122/60 Pulse Oximetry 90 L 90 L 100 05/07/18 12:03 05/07/18 14:00 05/07/18 15:00 Temperature Pulse Rate 79 80 80 Respiratory Rate 15 14 Blood Pressure 119/58 L Pulse Oximetry 95 05/07/18 15:15 05/07/18 15:30 05/07/18 15:45 Temperature Pulse Rate 82 82 82 Respiratory Rate 14 15 15 Blood Pressure 127/60 134/61 136/65 Pulse Oximetry 96 96 98 05/07/18 15:54 05/07/18 16:00 05/07/18 16:15 Temperature 97.8 F Pulse Rate 82 84 86 Respiratory Rate 16 15 16 Blood Pressure 135/59 L 132/64 Pulse Oximetry 94 L 96 97 05/07/18 16:30 05/07/18 16:45 05/07/18 17:00 Temperature Pulse Rate 88 89 90 Respiratory Rate 15 15 15 Blood Pressure 134/65 145/67 H 145/68 H Pulse Oximetry 97 98 98 05/07/18 17:15 05/07/18 17:30 05/07/18 17:45 Temperature Pulse Rate 89 91 H 90 Respiratory Rate 14 16 14 Blood Pressure 137/64 136/65 138/66 Pulse Oximetry 99 98 98 05/07/18 18:00 05/07/18 19:56 05/07/18 19:58 Temperature Pulse Rate 90 86 Respiratory Rate 15 14 14 Blood Pressure 147/69 H Pulse Oximetry 95 95 05/07/18 20:00 05/07/18 22:00 05/07/18 23:38 Temperature 99.7 F H Pulse Rate 86 85 85 Respiratory Rate 14 14 Blood Pressure 136/65 Pulse Oximetry 96 95 05/08/18 00:00 05/08/18 02:00 05/08/18 03:15 Temperature 99.3 F Pulse Rate 86 86 88 Respiratory Rate 15 14 Blood Pressure 148/70 H 157/70 H Pulse Oximetry 96 98 05/08/18 03:28 05/08/18 03:30 05/08/18 03:45 Temperature Pulse Rate 91 H 91 H 90 Respiratory Rate 14 14 14 Blood Pressure 164/74 H 159/72 H Pulse Oximetry 99 100 99 05/08/18 04:00 05/08/18 04:10 05/08/18 04:15 Temperature 98.6 F Pulse Rate 90 86 86 Respiratory Rate 15 14 14 Blood Pressure 143/62 H 134/61 128/60 Pulse Oximetry 99 99 99 05/08/18 04:26 05/08/18 04:29 05/08/18 04:30 Temperature Pulse Rate 86 87 87 Respiratory Rate 14 14 14 Blood Pressure 145/67 H 150/71 H 154/71 H Pulse Oximetry 99 97 98 05/08/18 04:45 05/08/18 04:54 05/08/18 05:00 Temperature Pulse Rate 91 H 89 88 Respiratory Rate 14 14 14 Blood Pressure 145/65 H 146/67 H 156/74 H Pulse Oximetry 98 97 97 05/08/18 05:05 05/08/18 05:15 05/08/18 05:24 Temperature Pulse Rate 86 83 85 Respiratory Rate 14 14 14 Blood Pressure 146/66 H 135/55 L 144/67 H Pulse Oximetry 98 97 97 05/08/18 05:30 05/08/18 05:34 05/08/18 05:45 Temperature Pulse Rate 86 85 90 Respiratory Rate 14 14 14 Blood Pressure 145/60 H 138/63 138/65 Pulse Oximetry 98 97 98 05/08/18 06:00 05/08/18 06:15 05/08/18 06:30 Temperature Pulse Rate 90 88 86 Respiratory Rate 14 14 14 Blood Pressure 130/64 140/65 137/64 Pulse Oximetry 99 98 81 L 05/08/18 06:45 05/08/18 07:00 05/08/18 07:15 Temperature Pulse Rate 84 88 88 Respiratory Rate 14 14 14 Blood Pressure 131/63 127/60 142/65 H Pulse Oximetry 98 97 97 05/08/18 07:30 05/08/18 07:34 05/08/18 07:45 Temperature 99 F Pulse Rate 85 86 85 Respiratory Rate 14 14 Blood Pressure 133/61 133/61 Pulse Oximetry 97 97 05/08/18 07:55 05/08/18 08:00 05/08/18 08:16 Temperature Pulse Rate 85 86 89 Respiratory Rate 14 29 H 24 Blood Pressure 162/72 H 129/69 Pulse Oximetry 97 94 L 94 L 05/08/18 08:30 05/08/18 08:45 05/08/18 09:00 Temperature Pulse Rate 90 91 H 91 H Respiratory Rate 32 H 28 H 28 H Blood Pressure 135/63 131/61 129/60 Pulse Oximetry 93 L 92 L 92 L 05/08/18 09:15 05/08/18 09:30 05/08/18 09:45 Temperature Pulse Rate 93 H 93 H 91 H Respiratory Rate 29 H 27 H 28 H Blood Pressure 129/60 122/60 155/70 H Pulse Oximetry 93 L 93 L 95 05/08/18 09:58 Temperature Pulse Rate 92 H Respiratory Rate Blood Pressure Pulse Oximetry Intake & Output 05/07/18 05/08/18 05/08/18 18:59 06:59 18:59 Intake Total 2420 / 2420 1518 / 1518 150 / 150 Output Total 1560 / 1560 600 / 600 Balance 860 / 860 918 / 918 150 / 150 Weight 71 kg Intake: IV 950 / 950 750 / 750 150 / 150 Cleviprex Inj 25 mg In 50 ml @ 200 / 200 50 / 50 1 MG/HR 2 mls/hr IV.CONT TITRATE PRN Rx#:[id number] Versed Inj 100 mg In 100 ml @ 1 100 / 100 MG/HR 1 mls/hr IV.CONT TITRATE PRN Rx#:[id number] Diprivan 1000 mg/100 ml Inj 1, 100 / 100 100 / 100 000 mg In 100 ml @ 5 MCG/KG/MIN 1.95 mls/hr IV.CONT TITRATE PRN Rx#:[id number] Cardene Inj 25 MG In NS Inj 240 750 / 750 250 / 250 ML @ 5 MG/HR 50 mls/hr IV.CONT TITRATE PRN Rx#:[id number] Keppra 1000 mg/100 mL Premix 100 / 100 200 / 200 100 ML @ 400 mls/hr IV.SIG Q12H [facility] Rx#:[id number] Tube Feeding 1410 / 1410 668 / 668 Water Bolus Amount 60 / 60 100 / 100 Output: Urine 1000 / 1000 500 / 500 Stool 560 / 560 100 / 100 Other: # Incontinent Voids 2 2 Narrative: sedated rxt to threat well - Urinary Catheter Management Straight Cath placed during this visit: no Objective Laboratory Results - last 24 hr 05/07/18 05/07/18 05/07/18 11:57 17:51 23:48 WBC RBC Hgb Hct MCV MCH MCHC RDW Plt Count MPV Prelim Diff (Auto) Neut % (Auto) Lymph % (Auto) Starr % (Auto) Eos % (Auto) Baso % (Auto) Neut # (Auto) Lymph # (Auto) Starr # (Auto) Eos # (Auto) Baso # (Auto) WBC Differential Seg Neuts % (Manual) Band Neuts % (Manual) Lymphocytes % (Manual) Monocytes % (Manual) Eosinophils % (Manual) Metamyelocytes % (Man) Abs Neuts (Manual) Differential Comment Platelet Estimate Platelet Morphology RBC Morphology Sodium Potassium Chloride Carbon Dioxide Anion Gap BUN Creatinine Estimated GFR POC Glucose 196 H 187 H 201 H Random Glucose Calcium Phosphorus Magnesium 05/08/18 05/08/18 05/08/18 05:53 06:34 06:34 WBC 11.8 H RBC 3.84 L Hgb 12.0 Hct 36.2 MCV 94.2 MCH 31.3 MCHC 33.2 RDW 14.5 Plt Count 330 MPV 10.2 Prelim Diff (Auto) Slide review pending Neut % (Auto) 64.5 Lymph % (Auto) 16.7 Starr % (Auto) 13.0 H Eos % (Auto) 5.1 H Baso % (Auto) 0.7 Neut # (Auto) 7.6 Lymph # (Auto) 2.0 Starr # (Auto) 1.5 H Eos # (Auto) 0.6 H Baso # (Auto) 0.1 WBC Differential Manual diff final Seg Neuts % (Manual) 48 Band Neuts % (Manual) 18 H Lymphocytes % (Manual) 15 Monocytes % (Manual) 10 H Eosinophils % (Manual) 7 H Metamyelocytes % (Man) 2 H Abs Neuts (Manual) 8.0 H Differential Comment . Platelet Estimate Normal Platelet Morphology Normal RBC Morphology Normal Sodium 146 H Potassium 3.7 Chloride 117 H Carbon Dioxide 19.4 L Anion Gap 10 BUN 27 H Creatinine 0.78 Estimated GFR 74 L POC Glucose 195 H Random Glucose 194 H Calcium 8.0 L Phosphorus 3.1 Magnesium 2.1 Review/Management - Diagnosis (1) Hypertensive encephalopathy Code(s): I67.4 - Hypertensive encephalopathy Status: Acute Current Visit: Yes (2) HTN (hypertension) Code(s): I10 - Essential (primary) hypertension Status: Acute Current Visit : No (3) Dementia Code(s): F03.90 - Unspecified dementia without behavioral disturbance Status: Acute Current Visit: No (4) Seizures Code(s): R56.9 - Unspecified convulsions Status: Acute Current Visit: No (5) Anxiety Code(s): F41.9 - Anxiety disorder, unspecified Status: Acute Current Visit: No - Review/Management Plan: 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 may have element of PRES as noted in prior notes recs check csf studies-pending bp control Thiamine supplementation follow exam Dr. Mehta to follow in a.m. 05/01/18 mri loops like PRES mra and mrv and labs all neg keep bp 110-120/ LP today eeg neg on keppra --------- 05/02/18 looks a little better mri repeat yest no change pres bp better keep 110-120/ await LP needs done today!! on keppra 05/03/18 mri no change eeg neg LP neg bp better check ct abd and pelvis and chest paraneo 05/06/18 looks so much better neurowise check paraneoplastic labs PRES clinically better thiamine pend will recheck mri in few days keep bp down 110-120/ ct chest and abd ok 05/07/18 sedated i [facility] med team pt looked to have early changes of pres 2 days after admit and bp initially 186/ in er the Question of which came first the pres or the catatonia ? i think overall the pres likley caused the ms changes as bp came down she is so much better yest i andrei nurse hold sedative should awaken she was on seroquel and lexapro i believe b4 admit and nms considered with drastic improvement clinically would not rec ect need to inc po meds for bp control i see no major hypotension documented when not on iv meds 05/08/18 will need to keep off sedatives i andrei nurse keep bp 110-120/ possible extubation today as above i am not convinced she had catatonia b4 pres started as bp taken in er day b4 ms changes in 180/ range regardless with ms improvement with rx of bp i am not recommending ect at this time (2) HTN (hypertension) Qualifiers: Qualified Code(s): I15.8 - Other secondary hypertension
[2018-05-08] MEDS: amLODIPine 10 MG Tablet PO SCH (10:58)
--- NOTE | 2018-05-08 16:09 | P.PNNP ---
Subjective Interval history: Patient on the vent. and now on CPAP and opening eyes. Physical Exam Vital signs: Vital Signs 05/07/18 16:15 05/07/18 16:30 05/07/18 16:45 Temperature Pulse Rate 86 88 89 Respiratory Rate 16 15 15 Blood Pressure 132/64 134/65 145/67 H Pulse Oximetry 97 97 98 05/07/18 17:00 05/07/18 17:15 05/07/18 17:30 Temperature Pulse Rate 90 89 91 H Respiratory Rate 15 14 16 Blood Pressure 145/68 H 137/64 136/65 Pulse Oximetry 98 99 98 05/07/18 17:45 05/07/18 18:00 05/07/18 19:56 Temperature Pulse Rate 90 90 Respiratory Rate 14 15 14 Blood Pressure 138/66 147/69 H Pulse Oximetry 98 95 95 05/07/18 19:58 05/07/18 20:00 05/07/18 22:00 Temperature 99.7 F H Pulse Rate 86 86 85 Respiratory Rate 14 14 Blood Pressure 136/65 Pulse Oximetry 96 05/07/18 23:38 05/08/18 00:00 05/08/18 02:00 Temperature 99.3 F Pulse Rate 85 86 86 Respiratory Rate 14 15 Blood Pressure 148/70 H Pulse Oximetry 95 96 05/08/18 03:15 05/08/18 03:28 05/08/18 03:30 Temperature Pulse Rate 88 91 H 91 H Respiratory Rate 14 14 14 Blood Pressure 157/70 H 164/74 H Pulse Oximetry 98 99 100 05/08/18 03:45 05/08/18 04:00 05/08/18 04:10 Temperature 98.6 F Pulse Rate 90 90 86 Respiratory Rate 14 15 14 Blood Pressure 159/72 H 143/62 H 134/61 Pulse Oximetry 99 99 99 05/08/18 04:15 05/08/18 04:26 05/08/18 04:29 Temperature Pulse Rate 86 86 87 Respiratory Rate 14 14 14 Blood Pressure 128/60 145/67 H 150/71 H Pulse Oximetry 99 99 97 05/08/18 04:30 05/08/18 04:45 05/08/18 04:54 Temperature Pulse Rate 87 91 H 89 Respiratory Rate 14 14 14 Blood Pressure 154/71 H 145/65 H 146/67 H Pulse Oximetry 98 98 97 05/08/18 05:00 05/08/18 05:05 05/08/18 05:15 Temperature Pulse Rate 88 86 83 Respiratory Rate 14 14 14 Blood Pressure 156/74 H 146/66 H 135/55 L Pulse Oximetry 97 98 97 05/08/18 05:24 05/08/18 05:30 05/08/18 05:34 Temperature Pulse Rate 85 86 85 Respiratory Rate 14 14 14 Blood Pressure 144/67 H 145/60 H 138/63 Pulse Oximetry 97 98 97 05/08/18 05:45 05/08/18 06:00 05/08/18 06:15 Temperature Pulse Rate 90 90 88 Respiratory Rate 14 14 14 Blood Pressure 138/65 130/64 140/65 Pulse Oximetry 98 99 98 05/08/18 06:30 05/08/18 06:45 05/08/18 07:00 Temperature Pulse Rate 86 84 88 Respiratory Rate 14 14 14 Blood Pressure 137/64 131/63 127/60 Pulse Oximetry 81 L 98 97 05/08/18 07:15 05/08/18 07:30 05/08/18 07:34 Temperature 99 F Pulse Rate 88 85 86 Respiratory Rate 14 14 Blood Pressure 142/65 H 133/61 Pulse Oximetry 97 97 05/08/18 07:45 05/08/18 07:55 05/08/18 08:00 Temperature Pulse Rate 85 85 86 Respiratory Rate 14 14 29 H Blood Pressure 133/61 162/72 H Pulse Oximetry 97 97 94 L 05/08/18 08:16 05/08/18 08:30 05/08/18 08:45 Temperature Pulse Rate 89 90 91 H Respiratory Rate 24 32 H 28 H Blood Pressure 129/69 135/63 131/61 Pulse Oximetry 94 L 93 L 92 L 05/08/18 09:00 05/08/18 09:15 05/08/18 09:30 Temperature Pulse Rate 91 H 93 H 93 H Respiratory Rate 28 H 29 H 27 H Blood Pressure 129/60 129/60 122/60 Pulse Oximetry 92 L 93 L 93 L 05/08/18 09:45 05/08/18 09:58 05/08/18 10:00 Temperature Pulse Rate 91 H 92 H 91 H Respiratory Rate 28 H 30 H Blood Pressure 155/70 H 116/50 L Pulse Oximetry 95 99 05/08/18 10:15 05/08/18 10:30 05/08/18 10:45 Temperature Pulse Rate 92 H 90 90 Respiratory Rate 29 H 32 H 30 H Blood Pressure 118/56 L 117/58 L 120/59 L Pulse Oximetry 98 98 97 05/08/18 11:00 05/08/18 11:15 05/08/18 11:29 Temperature Pulse Rate 89 93 H 96 H Respiratory Rate 30 H 27 H 7 L Blood Pressure 126/56 L 155/70 H Pulse Oximetry 97 97 95 05/08/18 11:31 05/08/18 11:32 05/08/18 11:45 Temperature Pulse Rate 98 H 95 H 96 H Respiratory Rate 38 H 29 H 35 H Blood Pressure 163/124 H 159/70 H 140/66 Pulse Oximetry 97 97 97 05/08/18 12:00 05/08/18 13:51 05/08/18 15:51 Temperature 99.3 F Pulse Rate 96 H 97 H 94 H Respiratory Rate 35 H 33 H Blood Pressure 131/55 L Pulse Oximetry 96 96 Intake & Output 05/07/18 05/08/18 05/08/18 18:59 06:59 18:59 Intake Total 2420 / 2420 1518 / 1518 450 / 450 Output Total 1560 / 1560 600 / 600 Balance 860 / 860 918 / 918 450 / 450 Weight 71 kg Intake: IV 950 / 950 750 / 750 450 / 450 Cleviprex Inj 25 mg In 50 ml @ 200 / 200 250 / 250 1 MG/HR 2 mls/hr IV.CONT TITRATE PRN Rx#:[id number] Versed Inj 100 mg In 100 ml @ 1 100 / 100 MG/HR 1 mls/hr IV.CONT TITRATE PRN Rx#:[id number] Diprivan 1000 mg/100 ml Inj 1, 100 / 100 100 / 100 000 mg In 100 ml @ 5 MCG/KG/MIN 1.95 mls/hr IV.CONT TITRATE PRN Rx#:[id number] Cardene Inj 25 MG In NS Inj 240 750 / 750 250 / 250 ML @ 5 MG/HR 50 mls/hr IV.CONT TITRATE PRN Rx#:[id number] Keppra 1000 mg/100 mL Premix 100 / 100 200 / 200 100 / 100 100 ML @ 400 mls/hr IV.SIG Q12H [facility]UKO Rx#:[id number] Tube Feeding 1410 / 1410 668 / 668 Water Bolus Amount 60 / 60 100 / 100 Output: Urine 1000 / 1000 500 / 500 Stool 560 / 560 100 / 100 Other: # Incontinent Voids 2 2 Narrative: GENERAL: currently orotracheally intubated in no acute distress SKIN: Warm and dry. HEAD: Atraumatic. Normocephalic. EYES: Pupils equal and round around 3 mm bilaterally and reactive. No scleral icterus. No injection or drainage. ENT: No nasal bleeding or discharge. Mucous membranes pink and moist. Tongue less edematous and swollen NECK: Trachea midline. No JVD. CARDIOVASCULAR: Regular rate and rhythm. S1, S2. No S4. RESPIRATORY: No accessory muscle use. Patient bases with few crackles. GASTROINTESTINAL: Abdomen soft, non-tender, obese. Hepatic and splenic margins not palpable. MUSCULOSKELETAL: Extremities trace bilateral lower extremity edema. No obvious deformities. NEUROLOGICAL: Patient open eyes, not following all the commands. - Urinary Catheter Management Straight Cath placed during this visit: no Assessment and Plan - Assessment (1) Acute respiratory failure Code(s): J96.00 - Acute respiratory failure, unspecified whether with hypoxia or hypercapnia Status: Acute (2) Angioedema Code(s): T78.3XXA - Angioneurotic edema, initial encounter Status: Acute Qualifiers: Encounter type: initial encounter Qualified Code(s): T78.3XXA - Angioneurotic edema, initial encounter (3) PRES (posterior reversible encephalopathy syndrome) Code(s): I67.83 - Posterior reversible encephalopathy syndrome Status: Acute (4) Anxiety Code(s): F41.9 - Anxiety disorder, unspecified Status: Acute (5) Dementia Code(s): F03.90 - Unspecified dementia without behavioral disturbance Status: Acute (6) HTN (hypertension) Code(s): I10 - Essential (primary) hypertension Status: Acute Qualifiers: Hypertension type: other secondary hypertension Qualified Code(s): I15.8 - Other secondary hypertension - Plan Patient is intubated with swelling of tongue and lips. BP need better control as per Neurology, to keep SBP 120 or less. BP is elevated, on hydralazine via OGT and IV. Also on Labetalol IV PRN. Also on Amlodipine, BP was elevated, Continue same meds. Creatinine has been normal. Neurology following. Hydralazine increase to 50 mg TID. Follow the BP. Weaning as per CCM.
[2018-05-08] MEDS: hydrALAZINE HCl Inj 20 MG/ML Vial IV.PUSH PRN (22:04)
[2018-05-09] MEDS: Oral Hygiene Kit OROPHARYNG SCH ×4 (00:15→15:08)
[2018-05-09] MEDS: Insulin NovoLOG Aspart Correctional Sugar Inj SQ SCH ×4 (00:15→16:59)
[2018-05-09] MEDS: levETIRAcetam 1000mg/100mL Inj 100 ML IV.SIG SCH ×2 (00:15→12:02)
[2018-05-09] MEDS: Clevidipine Inj 25 MG/50 ML VIAL IV.CONT PRN ×12 (00:57→23:11)
[2018-05-09 06:18] LABS: Baso # (Auto) 0.1 th/mm3 (0.0-0.2); Baso % (Auto) 0.9 % (0.0-2.0); Eos # (Auto) 0.3 th/mm3 (0.0-0.4); Eos % (Auto) 2.1 % (0.0-4.0); Hematocrit 32.8 % (35.0-46.0); Hemoglobin 11.2 gm/dL (11.6-15.3); Lymph # (Auto) 2.1 th/mm3 (1.0-4.8); Lymph % (Auto) 15.4 % (9.0-44.0); Mean Corpuscular HGB Conc 34.1 % (32.0-36.0); Mean Corpuscular Hemoglobin 31.5 pg (27.0-34.0); Mean Corpuscular Volume 92.5 fL (80.0-100.0); Mean Platelet Volume 9.4 fL (7.0-11.0); Mono # (Auto) 2.1 th/mm3 (0.0-0.9); Mono % (Auto) 15.2 % (0.0-8.0); Neut # (Auto) 9.2 th/mm3 (1.8-7.7); Neut % (Auto) 66.4 % (16.0-70.0); Platelet Count 377 th/mm3 (150-450); Red Blood Count 3.55 mil/mm3 (4.00-5.30); White Blood Count 13.8 th/mm3 (4.0-11.0)
[2018-05-09 06:26] LABS: Calcium 8.3 mg/dL (8.5-10.1); Carbon Dioxide 21.8 meq/L (21.0-32.0)
[2018-05-09] MEDS: Artificial Tears Opth Drops 15 ML Bottle EACH EYE SCH ×3 (06:41→23:11)
--- NOTE | 2018-05-09 07:57 | P.PNNEU ---
Subjective Active Medications: Active Medications Acetaminophen (Tylenol Liq) 650 mg NG/OG Q6H PRN PRN Reason: PAIN 1-10 AND/OR FEVER >101F Al Hydroxide/Mg Hydroxide (Milk Of Magnesia Liq) 30 ml PO Q12H PRN PRN Reason: Mild Constipation Albuterol (Duoneb Neb (Eloy)) 1 ampul NEB Q4HR NEB [facility] Last Admin: 05/09/18 02:51 Dose: 1 ampul Albuterol (Albuterol Neb (Prn)) 2.5 mg NEB Q2HR NEB PRN PRN Reason: DYSPNEA Amlodipine Besylate (Norvasc) 10 mg PO DAILY [facility] Last Admin: 05/08/18 10:58 Dose: 10 mg Artificial Tears (Tears Naturale Opth Drops) 1 drop EACH EYE Q8H [facility] Last Admin: 05/09/18 06:41 Dose: Not Given Aspirin (Aspirin Chew) 81 mg NG/OG DAILY [facility] Last Admin: 05/08/18 08:04 Dose: 81 mg Atorvastatin Calcium (Lipitor) 40 mg NG/OG HS [facility] Last Admin: 05/08/18 21:17 Dose: 40 mg Bisacodyl (Dulcolax Supp) 10 mg RECTAL DAILY PRN PRN Reason: SEVERE CONSITIPATION Carvedilol (Coreg) 3.125 mg PO BID [facility] Last Admin: 05/08/18 21:18 Dose: 3.125 mg Chlorhexidine Gluconate (Peridex 0.12% Oral Kit) 15 ml OROPHARYNG BID@0800, 2000 [facility] Last Admin: 05/08/18 20:18 Dose: 15 ml Dextrose (D50w Vial) 50 ml IV.PUSH UNSCH PRN PRN Reason: PER HYPOGLYCEMIA PROTOCOL Famotidine (Pepcid Pf Inj) 20 mg IV.PUSH Q12HR [facility] Last Admin: 05/08/18 21:19 Dose: 20 mg Gabapentin (Neurontin) 600 mg PO BID [facility] Last Admin: 05/01/18 08:56 Dose: Not Given Glucagon (Glucagon Inj) 1 mg OTHER PRN PRN PRN Reason: for Hypoglycemia Protocol Heparin Sodium (Porcine) (Heparin Inj) 5,000 units SQ Q12HR [facility] Last Admin: 05/08/18 21:18 Dose: 5,000 units Hydralazine HCl (Apresoline) 25 mg NG/OG QID PRN PRN Reason: SEE LABEL COMMENTS Last Admin: 05/06/18 16:40 Dose: 25 mg Hydralazine HCl (Apresoline Inj) 10 mg IV.PUSH Q1H PRN PRN Reason: sbp > 140 Last Admin: 05/08/18 22:04 Dose: 10 mg Hydralazine HCl (Apresoline) 50 mg PO TID [facility] Last Admin: 05/08/18 17:33 Dose: 50 mg Levetiracetam (Keppra 1000 Mg/100 Ml Premix) 100 mls @ 400 mls/hr IV.SIG Q12H [facility] Last Infusion: 05/09/18 00:30 Dose: Infused Fentanyl (Fentanyl 10 Mcg/Ml Premix Drip) 2,500 mcg in 250 mls @ 5 mls/hr IV.SIG TITRATE PRN; Protocol PRN Reason: Per Protocol Magnesium Sulfate 4 gm/ Sodium (Chloride) 100 mls @ 50 mls/hr IV.SIG UNSCH PRN PRN Reason: For Magnesium 0.9 - 1.1 mg/dL Magnesium Sulfate 2 gm/ Sodium (Chloride) 100 mls @ 50 mls/hr IV.SIG UNSCH PRN PRN Reason: For Magnesium 1.2 - 1.6 mg/dL Potassium Chloride (Kcl 40 Meq Premix Inj) 40 meq in 100 mls @ 25 mls/hr IV.SIG Q2H PRN PRN Reason: For Potassium 2.8 - 3.2 mEq/L Potassium Chloride (Kcl 20 Meq Premix Inj) 20 meq in 100 mls @ 50 mls/hr IV.SIG Q2H PRN PRN Reason: For Potassium 3.3 - 3.5 mEq/L Last Infusion: 05/04/18 12:43 Dose: Infused Potassium Chloride (Kcl 40 Meq Premix Inj) 40 meq in 100 mls @ 25 mls/hr IV.SIG UNSCH PRN PRN Reason: For Potassium 3.3 - 3.5 mEq/L Potassium Chloride (Kcl 20 Meq Premix Inj) 20 meq in 100 mls @ 50 mls/hr IV.SIG Q2H PRN PRN Reason: For Potassium 2.8 - 3.2 mEq/L Potassium Phosphate 30 mmol/ (Sodium Chloride) 260 mls @ 42 mls/hr IV.SIG UNSCH PRN PRN Reason: SEE LABEL COMMENTS Sodium Phosphate 30 mmol/ (Sodium Chloride) 260 mls @ 42 mls/hr IV.SIG UNSCH PRN PRN Reason: For Phosphorus < 2.5 mg/dL Clevidipine (Cleviprex Inj) 25 mg in 50 mls @ 2 mls/hr IV.CONT TITRATE PRN; Protocol PRN Reason: Per protocol Last Admin: 05/09/18 05:39 Dose: 16 mg/hr, 32 mls/hr Midazolam HCl (Versed Inj) 100 mg in 100 mls @ 1 mls/hr IV.CONT TITRATE PRN; Protocol PRN Reason: See protocol Last Titration: 05/08/18 09:37 Dose: 0 mg/hr, 0 mls/hr Insulin Aspart (Novolog Insulin Correctional Sugar Inj) 0 unit SQ Q6HR [facility]; Protocol Last Admin: 05/09/18 06:40 Dose: 7 unit Isosorbide Dinitrate (Isordil) 5 mg PO TIDAC [facility] Last Admin: 05/08/18 17:33 Dose: 5 mg Labetalol HCl (Trandate Inj) 10 mg IV.PUSH Q1H PRN PRN Reason: Sbp>140, Dbp>90, Hr>65 Last Admin: 05/07/18 06:17 Dose: 10 mg Lactulose (Lactulose Liq) 30 ml PO DAILY PRN PRN Reason: SEVERE CONSITIPATION Magnesium Oxide (Mag-Ox) 800 mg PO UNSCH PRN PRN Reason: For Magnesium 1.2 - 1.6 mg/dL Miscellaneous Medication () 1 each OROPHARYNG 0000,0400,1200,1600 [facility] Last Admin: 05/09/18 04:07 Dose: 1 each Ondansetron HCl (Zofran Inj) 4 mg IV.PUSH Q6H PRN PRN Reason: NAUSEA Potassium Bicarb/Potassium Chloride (K-Lyte Cl Eff) 50 meq PO UNSCH PRN PRN Reason: For Potassium 3.3 - 3.5 mEq/L Potassium Phosphate (K-Phos Original) 2,000 mg PO Q4H PRN PRN Reason: Phosphorus Less Than 2.5 mg/dL Potassium Phosphate (K-Phos Original) 2,000 mg PO UNSCH PRN PRN Reason: SEE LABEL COMMENTS Senna/Docusate Sodium (Aleah-Colace) 1 tab PO BID [facility] Last Admin: 05/08/18 21:18 Dose: 1 tab Sennosides (Senokot) 17.2 mg PO Q12H PRN PRN Reason: Moderate Constipation Sodium Chloride (Ns Flush) 2 ml IV.FLUSH BID [facility] Last Admin: 05/08/18 21:19 Dose: 2 ml Sodium Chloride (Ns Flush) 2 ml IV.FLUSH UNSCH PRN PRN Reason: FLUSH AFTER USING IV ACCESS Last Admin: 05/06/18 08:32 Dose: 2 ml Thiamine HCl (Thiamine Inj) 100 mg IM DAILY [facility] Last Admin: 05/08/18 08:03 Dose: 100 mg Allergies/Adverse Reactions: Allergies Allergy/AdvReac Type Severity Reaction Status Date / Time JACE Inhibitors Allergy Swelling Verified 05/06/18 12:26 of Lip/Tongue/Throat iodine Allergy Swelling Verified 04/19/18 15:50 Physical Exam Vital signs: Vital Signs 05/08/18 08:00 05/08/18 08:16 05/08/18 08:30 Temperature Pulse Rate 86 89 90 Respiratory Rate 29 H 24 32 H Blood Pressure 162/72 H 129/69 135/63 Pulse Oximetry 94 L 94 L 93 L 05/08/18 08:45 05/08/18 09:00 05/08/18 09:15 Temperature Pulse Rate 91 H 91 H 93 H Respiratory Rate 28 H 28 H 29 H Blood Pressure 131/61 129/60 129/60 Pulse Oximetry 92 L 92 L 93 L 05/08/18 09:30 05/08/18 09:45 05/08/18 09:58 Temperature Pulse Rate 93 H 91 H 92 H Respiratory Rate 27 H 28 H Blood Pressure 122/60 155/70 H Pulse Oximetry 93 L 95 05/08/18 10:00 05/08/18 10:15 05/08/18 10:30 Temperature Pulse Rate 91 H 92 H 90 Respiratory Rate 30 H 29 H 32 H Blood Pressure 116/50 L 118/56 L 117/58 L Pulse Oximetry 99 98 98 05/08/18 10:45 05/08/18 11:00 05/08/18 11:15 Temperature Pulse Rate 90 89 93 H Respiratory Rate 30 H 30 H 27 H Blood Pressure 120/59 L 126/56 L 155/70 H Pulse Oximetry 97 97 97 05/08/18 11:29 05/08/18 11:31 05/08/18 11:32 Temperature Pulse Rate 96 H 98 H 95 H Respiratory Rate 7 L 38 H 29 H Blood Pressure 163/124 H 159/70 H Pulse Oximetry 95 97 97 05/08/18 11:45 05/08/18 12:00 05/08/18 12:15 Temperature 99.3 F Pulse Rate 96 H 96 H 95 H Respiratory Rate 35 H 35 H 32 H Blood Pressure 140/66 131/55 L 137/62 Pulse Oximetry 97 96 96 05/08/18 12:30 05/08/18 12:45 05/08/18 13:00 Temperature Pulse Rate 96 H 96 H 97 H Respiratory Rate 33 H 37 H 34 H Blood Pressure 140/65 142/66 H 140/65 Pulse Oximetry 96 97 96 05/08/18 13:15 05/08/18 13:30 05/08/18 13:45 Temperature Pulse Rate 97 H 97 H 97 H Respiratory Rate 36 H 37 H 36 H Blood Pressure 143/67 H 139/61 137/65 Pulse Oximetry 96 97 96 05/08/18 13:51 05/08/18 14:00 05/08/18 14:15 Temperature Pulse Rate 97 H 97 H 96 H Respiratory Rate 37 H 37 H Blood Pressure 138/66 137/65 Pulse Oximetry 95 95 05/08/18 14:30 05/08/18 14:45 05/08/18 15:00 Temperature Pulse Rate 96 H 96 H 95 H Respiratory Rate 21 19 23 Blood Pressure 129/62 127/57 L 131/63 Pulse Oximetry 97 96 96 05/08/18 15:15 05/08/18 15:30 05/08/18 15:45 Temperature Pulse Rate 94 H 95 H 96 H Respiratory Rate 22 26 H 26 H Blood Pressure 123/58 L 124/61 126/61 Pulse Oximetry 95 94 L 94 L 05/08/18 15:51 05/08/18 16:00 05/08/18 16:15 Temperature Pulse Rate 94 H 94 H 96 H Respiratory Rate 33 H 23 24 Blood Pressure 126/60 140/63 Pulse Oximetry 96 95 95 05/08/18 16:30 05/08/18 16:45 05/08/18 17:00 Temperature 99 F Pulse Rate 95 H 95 H 95 H Respiratory Rate 21 18 17 Blood Pressure 138/56 L 133/62 134/61 Pulse Oximetry 96 95 96 05/08/18 17:38 05/08/18 20:00 01/02/19 20:24 Temperature 100.2 F H Pulse Rate 94 H 100 H 95 H Respiratory Rate 17 18 Blood Pressure 170/81 H Pulse Oximetry 95 96 05/08/18 22:00 05/08/18 22:01 05/08/18 23:48 Temperature Pulse Rate 98 H 103 H Respiratory Rate 18 18 Blood Pressure Pulse Oximetry 97 05/09/18 00:00 05/09/18 00:56 05/09/18 02:00 Temperature 100.2 F H Pulse Rate 103 H 104 H Respiratory Rate 19 19 Blood Pressure 137/56 L Pulse Oximetry 97 97 05/09/18 02:51 05/09/18 03:48 05/09/18 04:00 Temperature 100.9 F H Pulse Rate 101 H 104 H Respiratory Rate 14 16 17 Blood Pressure 145/65 H Pulse Oximetry 95 97 05/09/18 06:00 Temperature Pulse Rate 104 H Respiratory Rate Blood Pressure Pulse Oximetry Intake & Output 05/08/18 05/09/18 05/09/18 18:59 06:59 18:59 Intake Total 1322 / 1322 1306 / 1306 Output Total 2400 / 2400 800 / 800 Balance -1078 / -1078 506 / 506 Weight 68.6 kg Intake: IV 550 / 550 450 / 450 Cleviprex Inj 25 mg In 50 ml @ 350 / 350 350 / 350 1 MG/HR 2 mls/hr IV.CONT TITRATE PRN Rx#:[id number] Versed Inj 100 mg In 100 ml @ 1 100 / 100 MG/HR 1 mls/hr IV.CONT TITRATE PRN Rx#:[id number] Keppra 1000 mg/100 mL Premix 100 / 100 100 / 100 100 ML @ 400 mls/hr IV.SIG Q12H ELOY Rx#:[id number] Tube Feeding 652 / 652 736 / 736 Tube Irrigant 120 / 120 Water Bolus Amount 120 / 120 Output: Urine 2300 / 2300 800 / 800 Stool 100 / 100 Other: Date of Last Bowel Movement 05/08/18 05/09/18 # Incontinent Bowel Movements 1 Narrative: follows come commands good eye contact - Urinary Catheter Management Straight Cath placed during this visit: no Objective Laboratory Results - last 24 hr 05/08/18 05/08/18 05/08/18 06:34 06:34 12:13 WBC RBC Hgb Hct MCV MCH MCHC RDW Plt Count MPV Prelim Diff (Auto) Neut % (Auto) Lymph % (Auto) [place] % (Auto) Eos % (Auto) Baso % (Auto) Neut # (Auto) Lymph # (Auto) [place] # (Auto) Eos # (Auto) Baso # (Auto) WBC Differential Manual diff final Seg Neuts % (Manual) 48 Band Neuts % (Manual) 18 H Lymphocytes % (Manual) 15 Monocytes % (Manual) 10 H Eosinophils % (Manual) 7 H Metamyelocytes % (Man) 2 H Abs Neuts (Manual) 8.0 H Differential Comment Platelet Estimate Normal Platelet Morphology Normal RBC Morphology Normal Sodium 146 H Potassium 3.7 Chloride 117 H Carbon Dioxide 19.4 L Anion Gap 10 BUN 27 H Creatinine 0.78 Estimated GFR 74 L POC Glucose 208 H Random Glucose 194 H Calcium 8.0 L Phosphorus 3.1 Magnesium 2.1 05/08/18 05/09/18 05/09/18 17:35 00:08 05:38 WBC RBC Hgb Hct MCV MCH MCHC RDW Plt Count MPV Prelim Diff (Auto) Neut % (Auto) Lymph % (Auto) [place] % (Auto) Eos % (Auto) Baso % (Auto) Neut # (Auto) Lymph # (Auto) Trinity # (Auto) Eos # (Auto) Baso # (Auto) WBC Differential Seg Neuts % (Manual) Band Neuts % (Manual) Lymphocytes % (Manual) Monocytes % (Manual) Eosinophils % (Manual) Metamyelocytes % (Man) Abs Neuts (Manual) Differential Comment Platelet Estimate Platelet Morphology RBC Morphology Sodium 144 Potassium 3.0 L Chloride 114 H Carbon Dioxide 21.8 Anion Gap 8 BUN 32 H Creatinine 1.02 H Estimated GFR 54 L POC Glucose 297 H 355 H Random Glucose 265 H Calcium 8.3 L Phosphorus Magnesium 05/09/18 05/09/18 05:38 06:24 WBC 13.8 H RBC 3.55 L Hgb 11.2 L Hct 32.8 L MCV 92.5 MCH 31.5 MCHC 34.1 RDW 14.0 Plt Count 377 MPV 9.4 Prelim Diff (Auto) Slide review pending Neut % (Auto) 66.4 Lymph % (Auto) 15.4 Trinity % (Auto) 15.2 H Eos % (Auto) 2.1 Baso % (Auto) 0.9 Neut # (Auto) 9.2 H Lymph # (Auto) 2.1 Trinity # (Auto) 2.1 H Eos # (Auto) 0.3 Baso # (Auto) 0.1 WBC Differential Seg Neuts % (Manual) Band Neuts % (Manual) Lymphocytes % (Manual) Monocytes % (Manual) Eosinophils % (Manual) Metamyelocytes % (Man) Abs Neuts (Manual) Differential Comment . Platelet Estimate Platelet Morphology RBC Morphology Sodium Potassium Chloride Carbon Dioxide Anion Gap BUN Creatinine Estimated GFR POC Glucose 316 H Random Glucose Calcium Phosphorus Magnesium Review/Management - Diagnosis (1) Hypertensive encephalopathy Code(s): I67.4 - Hypertensive encephalopathy Status: Acute Current Visit: Yes (2) HTN (hypertension) Code(s): I10 - Essential (primary) hypertension Status: Acute Current Visit : No (3) Dementia Code(s): F03.90 - Unspecified dementia without behavioral disturbance Status: Acute Current Visit: No (4) Seizures Code(s): R56.9 - Unspecified convulsions Status: Acute Current Visit: No (5) Anxiety Code(s): F41.9 - Anxiety disorder, unspecified Status: Acute Current Visit: No - Review/Management Plan: 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 may have element of PRES as noted in prior notes recs check csf studies-pending bp control Thiamine supplementation follow exam Dr. Mehta to follow in a.m. 05/01/18 mri loops like PRES mra and mrv and labs all neg keep bp 110-120/ LP today eeg neg on kera --------- 05/02/18 looks a little better mri repeat yest no change pres bp better keep 110-120/ await LP needs done today!! on keppra 05/03/18 mri no change eeg neg LP neg bp better check ct abd and pelvis and chest paraneo 05/06/18 looks so much better neurowise check paraneoplastic labs PRES clinically better thiamine pend will recheck mri in few days keep bp down 110-120/ ct chest and abd ok 05/07/18 sedated i [facility] med team pt looked to have early changes of pres 2 days after admit and bp initially 186/ in er the Question of which came first the pres or the catatonia ? i think overall the pres tiesha caused the ms changes as bp came down she is so much better yest i andrei nurse hold sedative should awaken she was on seroquel and lexapro i believe b4 admit and nms considered with drastic improvement clinically would not rec ect need to inc po meds for bp control i see no major hypotension documented when not on iv meds 05/08/18 will need to keep off sedatives i andrei nurse keep bp 110-120/ possible extubation today as above i am not convinced she had catatonia b4 pres started as bp taken in er day b4 ms changes in 180/ range regardless with ms improvement with rx of bp i am not recommending ect at this time 05/09/17 130-170/ we need to keep bp 110-120 at all times more awake off sedatives working on extubation (2) HTN (hypertension) Qualifiers: Hypertension type: other secondary hypertension Qualified Code(s): I15.8 - Other secondary hypertension
[2018-05-09] MEDS: hydrALAZINE 25 MG Tablet PO SCH ×3 (08:05→16:59)
[2018-05-09] MEDS: amLODIPine 10 MG Tablet PO SCH (08:05)
[2018-05-09] MEDS: Famotidine PF Inj 20 MG/2 ML Vial IV.PUSH SCH ×2 (08:06→20:59)
[2018-05-09] MEDS: Heparin - SQ 10,000 UNITS/ML Vial SQ SCH ×2 (08:06→21:00)
[2018-05-09] MEDS: Senna/Docusate Sodium 8.6/50 MG Tablet PO SCH ×2 (08:06→21:01)
[2018-05-09] MEDS: Chlorhexidine 0.12% Oral Kit 15 ML UDC OROPHARYNG SCH ×2 (08:07→20:59)
[2018-05-09 08:39] LABS: Eosinophils 3 % (0-4); Lymphocytes 11 % (9-44); Metamyelocytes 4 % (0-1); Monocytes 10 % (0-8); Myelocytes 2 % (0-0); Platelet Estimate Normal (Normal); Platelet Morphology Normal (Normal); Promyelocyte 2 % (0-0); RBC Morphology Normal (Normal)
--- NOTE | 2018-05-09 09:43 | P.PNFP ---
Addendum entered and electronically signed by Jordan Tyson MD, R3 11:53: Due to fever and leukocytosis checked repeat CXR which was noted to have no significant change from prior study. Will check blood, urine, sputum culture. Monitor clinically and daily CBC. If fever persists or clinical status worsens will cover empirically for VAP. Original Note: Subjective Interval history: 68 yo female with dementia, DM, HTN admitted for hypertension related to catatonia (due likely to depression), now in ICU intubated due to angioedema. This morning is less sedated and opens eyes to voice. Much like when this episode started she does not appear to be responding to questions (poor concentration) and does not frequently attempt to move or speak. <Jordan Schrader - 05/09/18 09:43> Results - Labs Result diagrams: 05/09/18 05:38 05/09/18 05:38 <Roxanna Magana - 05/09/18 13:48> Abnormal lab results 05/08/18 05/09/18 05/09/18 Range/Units 17:35 00:08 05:38 WBC (4.0-11.0) th/mm3 RBC (4.00-5.30) mil/mm3 Hgb (11.6-15.3) gm/dL Hct (35.0-46.0) % [place] % (Auto) (0.0-8.0) % Neut # (Auto) (1.8-7.7) th/mm3 [place] # (Auto) (0.0-0.9) th/mm3 Band Neuts % (Manual) (0-6) % Monocytes % (Manual) (0-8) % Metamyelocytes % (Man) (0-1) % Myelocytes % (Man) (0-0) % Promyelocytes % (Man) (0-0) % Abs Neuts (Manual) (1.8-7.7) th/mm3 Potassium 3.0 L (3.5-5.1) meq/L Chloride 114 H (98-107) meq/L BUN 32 H (7-18) mg/dL Creatinine 1.02 H (0.50-1.00) mg/dL Estimated GFR 54 L (>89) mL/min POC Glucose 297 H 355 H (68-110) mg/dl Random Glucose 265 H (74-106) mg/dL Calcium 8.3 L (8.5-10.1) mg/dL 05/09/18 05/09/18 05/09/18 Range/Units 05:38 06:24 11:03 WBC 13.8 H (4.0-11.0) th/mm3 RBC 3.55 L (4.00-5.30) mil/mm3 Hgb 11.2 L (11.6-15.3) gm/dL Hct 32.8 L (35.0-46.0) % [place] % (Auto) 15.2 H (0.0-8.0) % Neut # (Auto) 9.2 H (1.8-7.7) th/mm3 [place] # (Auto) 2.1 H (0.0-0.9) th/mm3 Band Neuts % (Manual) 7 H (0-6) % Monocytes % (Manual) 10 H (0-8) % Metamyelocytes % (Man) 4 H (0-1) % Myelocytes % (Man) 2 H (0-0) % Promyelocytes % (Man) 2 H (0-0) % Abs Neuts (Manual) 10.2 H (1.8-7.7) th/mm3 Potassium (3.5-5.1) meq/L Chloride (98-107) meq/L BUN (7-18) mg/dL Creatinine (0.50-1.00) mg/dL Estimated GFR (>89) mL/min POC Glucose 316 H 328 H (68-110) mg/dl Random Glucose (74-106) mg/dL Calcium (8.5-10.1) mg/dL Short CBC 05/09/18 Range/Units 05:38 WBC 13.8 H (4.0-11.0) th/mm3 Hgb 11.2 L (11.6-15.3) gm/dL Hct 32.8 L (35.0-46.0) % Plt Count 377 (150-450) th/mm3 [facility] 05/09/18 05:38 Sodium 144 Potassium 3.0 L Chloride 114 H Carbon Dioxide 21.8 BUN 32 H Creatinine 1.02 H Calcium 8.3 L <Roxanna Magana - 05/09/18 13:48> Abnormal lab results 05/08/18 05/08/18 05/08/18 Range/Units 06:34 12:13 17:35 WBC (4.0-11.0) th/mm3 RBC (4.00-5.30) mil/mm3 Hgb (11.6-15.3) gm/dL Hct (35.0-46.0) % [place] % (Auto) (0.0-8.0) % Neut # (Auto) (1.8-7.7) th/mm3 [place] # (Auto) (0.0-0.9) th/mm3 Band Neuts % (Manual) 18 H (0-6) % Monocytes % (Manual) 10 H (0-8) % Eosinophils % (Manual) 7 H (0-4) % Metamyelocytes % (Man) 2 H (0-1) % Myelocytes % (Man) (0-0) % Promyelocytes % (Man) (0-0) % Abs Neuts (Manual) 8.0 H (1.8-7.7) th/mm3 Potassium (3.5-5.1) meq/L Chloride (98-107) meq/L BUN (7-18) mg/dL Creatinine (0.50-1.00) mg/dL Estimated GFR (>89) mL/min POC Glucose 208 H 297 H (68-110) mg/dl Random Glucose (74-106) mg/dL Calcium (8.5-10.1) mg/dL 05/09/18 05/09/18 05/09/18 Range/Units 00:08 05:38 05:38 WBC 13.8 H (4.0-11.0) th/mm3 RBC 3.55 L (4.00-5.30) mil/mm3 Hgb 11.2 L (11.6-15.3) gm/dL Hct 32.8 L (35.0-46.0) % [place] % (Auto) 15.2 H (0.0-8.0) % Neut # (Auto) 9.2 H (1.8-7.7) th/mm3 [place] # (Auto) 2.1 H (0.0-0.9) th/mm3 Band Neuts % (Manual) 7 H (0-6) % Monocytes % (Manual) 10 H (0-8) % Eosinophils % (Manual) (0-4) % Metamyelocytes % (Man) 4 H (0-1) % Myelocytes % (Man) 2 H (0-0) % Promyelocytes % (Man) 2 H (0-0) % Abs Neuts (Manual) 10.2 H (1.8-7.7) th/mm3 Potassium 3.0 L (3.5-5.1) meq/L Chloride 114 H (98-107) meq/L BUN 32 H (7-18) mg/dL Creatinine 1.02 H (0.50-1.00) mg/dL Estimated GFR 54 L (>89) mL/min POC Glucose 355 H (68-110) mg/dl Random Glucose 265 H (74-106) mg/dL Calcium 8.3 L (8.5-10.1) mg/dL 05/09/18 Range/Units 06:24 WBC (4.0-11.0) th/mm3 RBC (4.00-5.30) mil/mm3 Hgb (11.6-15.3) gm/dL Hct (35.0-46.0) % [place] % (Auto) (0.0-8.0) % Neut # (Auto) (1.8-7.7) th/mm3 [place] # (Auto) (0.0-0.9) th/mm3 Band Neuts % (Manual) (0-6) % Monocytes % (Manual) (0-8) % Eosinophils % (Manual) (0-4) % Metamyelocytes % (Man) (0-1) % Myelocytes % (Man) (0-0) % Promyelocytes % (Man) (0-0) % Abs Neuts (Manual) (1.8-7.7) th/mm3 Potassium (3.5-5.1) meq/L Chloride (98-107) meq/L BUN (7-18) mg/dL Creatinine (0.50-1.00) mg/dL Estimated GFR (>89) mL/min POC Glucose 316 H (68-110) mg/dl Random Glucose (74-106) mg/dL Calcium (8.5-10.1) mg/dL Short CBC 05/09/18 Range/Units 05:38 WBC 13.8 H (4.0-11.0) th/mm3 Hgb 11.2 L (11.6-15.3) gm/dL Hct 32.8 L (35.0-46.0) % Plt Count 377 (150-450) th/mm3 BMP 05/09/18 05:38 Sodium 144 Potassium 3.0 L Chloride 114 H Carbon Dioxide 21.8 BUN 32 H Creatinine 1.02 H Calcium 8.3 L <Jordan Schrader S - 05/09/18 09:43> - Imaging Impressions Chest X-Ray 05/09/18 11:12 CONCLUSION: Stable chest with bibasilar airspace disease Stable position of endotracheal and nasogastric tubes. <Roxanna Magana - 05/09/18 13:48> Physical Exam Vital signs: Vital Signs 05/08/18 13:45 05/08/18 13:51 05/08/18 14:00 Temperature Pulse Rate 97 H 97 H 97 H Respiratory Rate 36 H 37 H Blood Pressure 137/65 138/66 Pulse Oximetry 96 95 05/08/18 14:15 05/08/18 14:30 05/08/18 14:45 Temperature Pulse Rate 96 H 96 H 96 H Respiratory Rate 37 H 21 19 Blood Pressure 137/65 129/62 127/57 L Pulse Oximetry 95 97 96 05/08/18 15:00 05/08/18 15:15 05/08/18 15:30 Temperature Pulse Rate 95 H 94 H 95 H Respiratory Rate 23 22 26 H Blood Pressure 131/63 123/58 L 124/61 Pulse Oximetry 96 95 94 L 05/08/18 15:45 05/08/18 15:51 05/08/18 16:00 Temperature Pulse Rate 96 H 94 H 94 H Respiratory Rate 26 H 33 H 23 Blood Pressure 126/61 126/60 Pulse Oximetry 94 L 96 95 05/08/18 16:15 05/08/18 16:30 05/08/18 16:45 Temperature 99 F Pulse Rate 96 H 95 H 95 H Respiratory Rate 24 21 18 Blood Pressure 140/63 138/56 L 133/62 Pulse Oximetry 95 96 95 05/08/18 17:00 05/08/18 17:38 05/08/18 20:00 Temperature 100.2 F H Pulse Rate 95 H 94 H 100 H Respiratory Rate 17 17 Blood Pressure 134/61 170/81 H Pulse Oximetry 96 95 05/08/18 20:24 05/08/18 22:00 05/08/18 22:01 Temperature Pulse Rate 95 H 98 H Respiratory Rate 18 18 Blood Pressure Pulse Oximetry 96 97 05/08/18 23:48 05/09/18 00:00 05/09/18 00:56 Temperature 100.2 F H Pulse Rate 103 H 103 H Respiratory Rate 18 19 19 Blood Pressure 137/56 L Pulse Oximetry 97 97 05/09/18 02:00 05/09/18 02:51 05/09/18 03:48 Temperature Pulse Rate 104 H 101 H Respiratory Rate 14 16 Blood Pressure Pulse Oximetry 95 05/09/18 04:00 05/09/18 06:00 05/09/18 08:00 Temperature 100.9 F H 101.1 F H Pulse Rate 104 H 104 H 104 H Respiratory Rate 17 16 Blood Pressure 145/65 H 127/60 Pulse Oximetry 97 97 05/09/18 08:15 05/09/18 08:30 05/09/18 08:36 Temperature Pulse Rate 102 H 101 H 101 H Respiratory Rate 16 19 17 Blood Pressure 129/60 128/60 Pulse Oximetry 97 97 05/09/18 08:37 05/09/18 08:45 05/09/18 11:51 Temperature Pulse Rate 102 H 91 H Respiratory Rate 28 H 19 30 H Blood Pressure 129/59 L Pulse Oximetry 98 98 96 05/09/18 12:00 05/09/18 12:15 05/09/18 12:30 Temperature 99.5 F Pulse Rate 88 88 88 Respiratory Rate 19 19 20 Blood Pressure 119/58 L 112/55 L 115/59 L Pulse Oximetry 95 95 94 L Intake & Output 05/08/18 05/09/18 05/09/18 18:59 06:59 18:59 Intake Total 1322 / 1322 1306 / 1306 500 / 500 Output Total 2400 / 2400 800 / 800 Balance -1078 / -1078 506 / 506 500 / 500 Weight 68.6 kg Intake: IV 550 / 550 450 / 450 500 / 500 Cleviprex Inj 25 mg In 50 ml @ 350 / 350 350 / 350 200 / 200 1 MG/HR 2 mls/hr IV.CONT TITRATE PRN Rx#:[id number] Versed Inj 100 mg In 100 ml @ 1 100 / 100 MG/HR 1 mls/hr IV.CONT TITRATE PRN Rx#:[id number] KCl 10 mEq Premix Inj 10 meq In 100 / 100 100 ml @ 100 mls/hr IV.SIG ONCE ONE Rx#:[id number] KCl 20 mEq Premix Inj 20 meq In 100 / 100 100 ml @ 50 mls/hr IV.SIG Q2H PRN Rx#:[id number] Keppra 1000 mg/100 mL Premix 100 / 100 100 / 100 100 / 100 100 ML @ 400 mls/hr IV.SIG Q12H YUKO Rx#:[id number] Tube Feeding 652 / 652 736 / 736 Tube Irrigant 120 / 120 Water Bolus Amount 120 / 120 Output: Urine 2300 / 2300 800 / 800 Stool 100 / 100 Other: Date of Last Bowel Movement 05/08/18 05/09/18 05/09/18 # Incontinent Bowel Movements 1 <Roxanna Magana - 05/09/18 13:48> Vital Signs 05/08/18 09:30 05/08/18 09:45 05/08/18 09:58 Temperature Pulse Rate 93 H 91 H 92 H Respiratory Rate 27 H 28 H Blood Pressure 122/60 155/70 H Pulse Oximetry 93 L 95 05/08/18 10:00 05/08/18 10:15 05/08/18 10:30 Temperature Pulse Rate 91 H 92 H 90 Respiratory Rate 30 H 29 H 32 H Blood Pressure 116/50 L 118/56 L 117/58 L Pulse Oximetry 99 98 98 05/08/18 10:45 05/08/18 11:00 05/08/18 11:15 Temperature Pulse Rate 90 89 93 H Respiratory Rate 30 H 30 H 27 H Blood Pressure 120/59 L 126/56 L 155/70 H Pulse Oximetry 97 97 97 05/08/18 11:29 05/08/18 11:31 05/08/18 11:32 Temperature Pulse Rate 96 H 98 H 95 H Respiratory Rate 7 L 38 H 29 H Blood Pressure 163/124 H 159/70 H Pulse Oximetry 95 97 97 05/08/18 11:45 05/08/18 12:00 05/08/18 12:15 Temperature 99.3 F Pulse Rate 96 H 96 H 95 H Respiratory Rate 35 H 35 H 32 H Blood Pressure 140/66 131/55 L 137/62 Pulse Oximetry 97 96 96 05/08/18 12:30 05/08/18 12:45 05/08/18 13:00 Temperature Pulse Rate 96 H 96 H 97 H Respiratory Rate 33 H 37 H 34 H Blood Pressure 140/65 142/66 H 140/65 Pulse Oximetry 96 97 96 05/08/18 13:15 05/08/18 13:30 05/08/18 13:45 Temperature Pulse Rate 97 H 97 H 97 H Respiratory Rate 36 H 37 H 36 H Blood Pressure 143/67 H 139/61 137/65 Pulse Oximetry 96 97 96 05/08/18 13:51 05/08/18 14:00 05/08/18 14:15 Temperature Pulse Rate 97 H 97 H 96 H Respiratory Rate 37 H 37 H Blood Pressure 138/66 137/65 Pulse Oximetry 95 95 05/08/18 14:30 05/08/18 14:45 05/08/18 15:00 Temperature Pulse Rate 96 H 96 H 95 H Respiratory Rate 21 19 23 Blood Pressure 129/62 127/57 L 131/63 Pulse Oximetry 97 96 96 05/08/18 15:15 05/08/18 15:30 05/08/18 15:45 Temperature Pulse Rate 94 H 95 H 96 H Respiratory Rate 22 26 H 26 H Blood Pressure 123/58 L 124/61 126/61 Pulse Oximetry 95 94 L 94 L 05/08/18 15:51 05/08/18 16:00 05/08/18 16:15 Temperature Pulse Rate 94 H 94 H 96 H Respiratory Rate 33 H 23 24 Blood Pressure 126/60 140/63 Pulse Oximetry 96 95 95 05/08/18 16:30 05/08/18 16:45 05/08/18 17:00 Temperature 99 F Pulse Rate 95 H 95 H 95 H Respiratory Rate 21 18 17 Blood Pressure 138/56 L 133/62 134/61 Pulse Oximetry 96 95 96 05/08/18 17:38 05/08/18 20:00 05/08/18 20:24 Temperature 100.2 F H Pulse Rate 94 H 100 H 95 H Respiratory Rate 17 18 Blood Pressure 170/81 H Pulse Oximetry 95 96 05/08/18 22:00 05/08/18 22:01 05/08/18 23:48 Temperature Pulse Rate 98 H 103 H Respiratory Rate 18 18 Blood Pressure Pulse Oximetry 97 05/09/18 00:00 05/09/18 00:56 05/09/18 02:00 Temperature 100.2 F H Pulse Rate 103 H 104 H Respiratory Rate 19 19 Blood Pressure 137/56 L Pulse Oximetry 97 97 05/09/18 02:51 05/09/18 03:48 05/09/18 04:00 Temperature 100.9 F H Pulse Rate 101 H 104 H Respiratory Rate 14 16 17 Blood Pressure 145/65 H Pulse Oximetry 95 97 05/09/18 06:00 05/09/18 08:00 05/09/18 08:15 Temperature 101.1 F H Pulse Rate 104 H 104 H 102 H Respiratory Rate 16 16 Blood Pressure 127/60 129/60 Pulse Oximetry 97 97 05/09/18 08:30 05/09/18 08:36 05/09/18 08:37 Temperature Pulse Rate 101 H 101 H Respiratory Rate 19 17 28 H Blood Pressure 128/60 Pulse Oximetry 97 98 05/09/18 08:45 Temperature Pulse Rate 102 H Respiratory Rate 19 Blood Pressure 129/59 L Pulse Oximetry 98 Intake & Output 05/08/18 05/09/18 05/09/18 18:59 06:59 18:59 Intake Total 1322 / 1322 1306 / 1306 50 / 50 Output Total 2400 / 2400 800 / 800 Balance -1078 / -1078 506 / 506 50 / 50 Weight 68.6 kg Intake: IV 550 / 550 450 / 450 50 / 50 Cleviprex Inj 25 mg In 50 ml @ 350 / 350 350 / 350 50 / 50 1 MG/HR 2 mls/hr IV.CONT TITRATE PRN Rx#:[id number] Versed Inj 100 mg In 100 ml @ 1 100 / 100 MG/HR 1 mls/hr IV.CONT TITRATE PRN Rx#:[id number] Keppra 1000 mg/100 mL Premix 100 / 100 100 / 100 100 ML @ 400 mls/hr IV.SIG Q12H YUKO Rx#:[id number] Tube Feeding 652 / 652 736 / 736 Tube Irrigant 120 / 120 Water Bolus Amount 120 / 120 Output: Urine 2300 / 2300 800 / 800 Stool 100 / 100 Other: Date of Last Bowel Movement 01/02/19 01/03/19 01/03/19 # Incontinent Bowel Movements 1 <Jordan Schrader 05/09/18 09:43> - Constitutional no acute distress <Jordan Schrader 05/09/18 09:43> Comments: intubated <Jordan Schrader 05/09/18 09:43> - Routine HEENT Exam ENT: Present: mucous membranes moist <Jordan Schrader 05/09/18 09:43> Comments: tongue enlarged, size decreasing from previously <Jordan Schrader 05/09/18 09:43> - Routine Respiratory Exam Present: CTA bilaterally. Absent: accessory muscle use, wheezes, crackles < Jordan Schrader 05/09/18 09:43> - Routine Cardiovascular Exam Present: RRR, S1, S2. Absent: murmur <Jordan Schrader 05/09/18 09:43> - Routine Abdominal Exam Present: soft <Jordan Schrader 05/09/18 09:43> - Routine Extremities Exam Absent: cyanosis, edema <Jordan Schrader 05/09/18 09:43> Comments: s/p right above knee amputation <Jordan Schrader 05/09/18 09:43> - Routine Neurological Exam Difficult to assess neurological and mental status as she has poor concentration and only occasionally responds to commands or attempts to communicate <Jordan Schrader 05/09/18 09:43> - Urinary Catheter Management Straight Cath placed during this visit: no <[place]Roxanna - 05/09/18 13:48> no <Jordan Schrader S 05/09/18 09:43> Assessment and Plan - Assessment (1) Acute respiratory failure Code(s): J96.00 - Acute respiratory failure, unspecified whether with hypoxia or hypercapnia Status: Acute (2) Angioedema Code(s): T78.3XXA - Angioneurotic edema, initial encounter Status: Acute (3) Catatonia associated with another mental disorder Code(s): F06.1 - Catatonic disorder due to known physiological condition Status: Acute (4) PRES (posterior reversible encephalopathy syndrome) Code(s): I67.83 - Posterior reversible encephalopathy syndrome Status: Acute (5) HTN (hypertension) Code(s): I10 - Essential (primary) hypertension Status: Acute (6) Seizures Code(s): R56.9 - Unspecified convulsions Status: Acute (7) Hyperlipidemia Code(s): E78.5 - Hyperlipidemia, unspecified Status: Chronic (8) Diabetes Code(s): E11.9 - Type 2 diabetes mellitus without complications Status: Chronic (9) Diarrhea Code(s): R19.7 - Diarrhea, unspecified Status: Resolved (10) Clavicle fracture Code(s): S42.009A - Fracture of unspecified part of unspecified clavicle, initial encounter for closed fracture Status: Acute (11) Nutrition, metabolism, and development symptoms Code(s): R63.8 - Other symptoms and signs concerning food and fluid intake Status: Acute <Roxanna Magana - 05/09/18 13:48> (1) Acute respiratory failure Code(s): J96.00 - Acute respiratory failure, unspecified whether with hypoxia or hypercapnia Status: Acute (2) Angioedema Code(s): T78.3XXA - Angioneurotic edema, initial encounter Status: Acute (3) Catatonia associated with another mental disorder Code(s): F06.1 - Catatonic disorder due to known physiological condition Status: Acute (4) PRES (posterior reversible encephalopathy syndrome) Code(s): I67.83 - Posterior reversible encephalopathy syndrome Status: Acute (5) HTN (hypertension) Code(s): I10 - Essential (primary) hypertension Status: Acute (6) Seizures Code(s): R56.9 - Unspecified convulsions Status: Acute (7) Hyperlipidemia Code(s): E78.5 - Hyperlipidemia, unspecified Status: Chronic (8) Diabetes Code(s): E11.9 - Type 2 diabetes mellitus without complications Status: Chronic (9) Diarrhea Code(s): R19.7 - Diarrhea, unspecified Status: Resolved (10) Clavicle fracture Code(s): S42.009A - Fracture of unspecified part of unspecified clavicle, initial encounter for closed fracture Status: Acute (11) Nutrition, metabolism, and development symptoms Code(s): R63.8 - Other symptoms and signs concerning food and fluid intake Status: Acute <Jordan Schrader - 05/09/18 09:24> - Assessment and Plan 68 yo female with dementia, HTN, DM admitted with: Catatonia Medical work-up has been negative except for PRES. Given that her altered mental status preceded her hypertension it is likely that the root cause of her altered mental state is catatonia. She does have a component of PRES by MRI but this is most likely due to hypertension caused by catatonia rather than primary hypertension leading to encephalopathy, especially since her mental status changes preceded the MRI findings that suggested PRES. CBC and CK within normal limits; no signs of NMS ABG essentially normal Ammonia very slightly elevated, unlikely to be etiology of her mental status LATONYA screen positive, titer pending RF negative RPR negative ESR normal * Continue Lexapro and Seroquel * Ativan stopped due to hypotension, respiratory failure from angioedema * Psychiatry consulted, appreciate assistance * Only treatment likely to improve her depression/catatonia is ECT - ongoing discussion to make arrangements to transfer her to a facility that performs ECT , however she is not stable for transfer at the moment. * CT abdomen/pelvis showed questionable pancreatic mass, ruled out by MRI * Normal CA-19/9, CEA and CA-125 * Manage hypertension as noted below Acute Respiratory Failure due to angioedema Now intubated, respiratory status improving, working toward extubation Spiked fever today / last night, CBC with increasing leukocytosis * CCM consulted, appreciate assistance * Intubated 05/03 * Completed treatment with H1/H2 anayeli and steroid * Duonebs Q4H * Hopeful for extubation in the next day or so as angioedema resolves and breathing trials started * Tongue still swollen, may benefit from repeat steroid dose * Continue to monitor vitals and CBC; if current trend continues will cover empirically for VAP PRES MRI findings suggestive of possible PRES * Neurology following, appreciate assistance * had improved neurologically as of 05/06 * Check paraneoplastic labs * Control BP as below Hypertension BP still intermittently elevated likely related to catatonia Difficulty taking PO meds due to fluctuating mental status * Due to PRES needs tighter BP control per neurology: goal SBP 110-120 * Continue clevidipine drip titrated to target SBP < 120 * IV Hydralazine and labetalol as needed for BP control * Transitioning to PO meds * Hydralazine 25 mg TID * Coreg 3.125 mg BID * Isosorbide dinitrate 5 mg TIDAC * Amlodipine 10 mg daily (increased from 5 mg) Seizure Disorder Now with possible repeat seizure vs (more likely) catalepsy from catatonia EEG with nonspecific encephalopathy MRI/MRA unremarkable except for ?PRES as noted LP performed 05/02/18 - chemistries / cultures normal so far * Neurology on board, appreciate assistance * Continue Keppra to 1000 mg IV BID * Control BP as part of PRES management * Treat catatonia as above Diabetes mellitus BG at hospital goal now * Check sugar Q6H now that she is on continuous tube feedings * Holding metformin for now * Low dose SSI Hyperlipidemia * Continue home atorvastatin Diarrhea C difficile negative * Most likely normal due to tube feeds and patient being NPO before tube feeds were initiated * Continue to monitor Right [id number] amputation PT/OT evaluate and treat once more able to cooperate Clavicle Fracture, right RUE neurovascularly intact, no deformity noted * Monitor clinically * WBAT RUE Fluids: Tube feeds and drips only, no running IVF Diet: Tube feed only at the moment * Consulted cyber analyst, appreciate recs * Glucerna 1.5 @ 60 mL/hr * ST can reevaluate once extubated for likely resumption of her diet GI: Famotidine Docusate serum/senna 1 tablet twice daily for bowel regimen DVT: Heparin BID ICU electrolyte replacement protocol <Jordan Schrader - 05/09/18 09:43> Discharge Planning: Pending improvement of respiratory status. Once extubated and BP stable on oral agents, likely would benefit from ECT unless her mental status has improved after extubation (which would point toward PRES as the primary cause rather than an effect of the catatonia); pending psychiatry assistance and neurology clearance. <Jordan Schrader - 05/09/18 09:43> - Attending Attestation The exam, history, and the medical decision-making described in the above note were completed with the assistance of the resident physician. I reviewed and agree with the findings presented. I attest that I had a [id number] encounter with the patient on the same day, and personally performed and documented my assessment and findings in the medical record. One dilemma is if the pt has autonomic instability from catatonia (her BPs despite po meds are still labile with the drip required to be adjusted multiple times daily). now she is having some fevers which can of course be an infection or other problems but can be from catatonia as well. she also has some variation in her breathing. It is unclear if this can be catatonia as well. she has had inconsistent neuro exams from the beginning of her hospitalization. she at times will cooperate and move her hands, etc when asked but other times she is less alert. Sadly, she doesn't seem to be responding as well as she could to treatment. Per report, a safety belt installer is hearing her case today to determine if she can get ECT. Hopefully, she can come off her ventilator and get transferred for ECT. <Roxanna Magana M - 05/09/18 13:48> <Brian TysonJordan S - Last Filed: 05/09/18 09:24> (2) Angioedema Qualifiers: Encounter type: initial encounter Qualified Code(s): T78.3XXA - Angioneurotic edema, initial encounter (5) HTN (hypertension) Qualifiers: Hypertension type: other secondary hypertension Qualified Code(s): I15.8 - Other secondary hypertension (7) Hyperlipidemia Qualifiers: Hyperlipidemia type: pure hypercholesterolemia Qualified Code(s): E78.00 - Pure hypercholesterolemia, unspecified; E78.0 - Pure hypercholesterolemia (8) Diabetes Qualifiers: Diabetes mellitus type: type 2 Diabetes mellitus nursing home insulin 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 <Roxanna Magana M - Last Filed: 05/09/18 13:48> (2) Angioedema Qualifiers: Encounter type: initial encounter Qualified Code(s): T78.3XXA - Angioneurotic edema, initial encounter (5) HTN (hypertension) Qualifiers: Hypertension type: other secondary hypertension Qualified Code(s): I15.8 - Other secondary hypertension (7) Hyperlipidemia Qualifiers: Hyperlipidemia type: pure hypercholesterolemia Qualified Code(s): E78.00 - Pure hypercholesterolemia, unspecified; E78.0 - Pure hypercholesterolemia (8) Diabetes Qualifiers: Diabetes mellitus type: type 2 Diabetes mellitus terminal worker insulin 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 <Jordan Schrader S - Last Filed: 05/09/18 09:24> (2) Angioedema Qualifiers: Encounter type: initial encounter Qualified Code(s): T78.3XXA - Angioneurotic edema, initial encounter (5) HTN (hypertension) Qualifiers: Hypertension type: other secondary hypertension Qualified Code(s): I15.8 - Other secondary hypertension (7) Hyperlipidemia Qualifiers: Hyperlipidemia type: pure hypercholesterolemia Qualified Code(s): E78.00 - Pure hypercholesterolemia, unspecified; E78.0 - Pure hypercholesterolemia (8) Diabetes Qualifiers: Diabetes mellitus type: type 2 Diabetes mellitus nursing home insulin use: unspecified nursing home insulin use status Diabetes mellitus complication status : with circulatory complication Diabetes mellitus complication detail: with peripheral angiopathy without gangrene Qualified Code(s): E11.51 - Type 2 diabetes mellitus with diabetic peripheral angiopathy without gangrene (10) Clavicle fracture Qualifiers: Encounter type: subsequent encounter Fracture type: closed Laterality: right <BreckenridgeRoxanna Ad - Last Filed: 05/09/18 13:48> (2) Angioedema Qualifiers: Encounter type: initial encounter Qualified Code(s): T78.3XXA - Angioneurotic edema, initial encounter (5) HTN (hypertension) Qualifiers: Hypertension type: other secondary hypertension Qualified Code(s): I15.8 - Other secondary hypertension (7) Hyperlipidemia Qualifiers: Hyperlipidemia type: pure hypercholesterolemia Qualified Code(s): E78.00 - Pure hypercholesterolemia, unspecified; E78.0 - Pure hypercholesterolemia (8) Diabetes Qualifiers: Diabetes mellitus type: type 2 Diabetes mellitus nursing home insulin 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
[2018-05-09] MEDS: Labetalol HCl Inj 100 MG/20 ML Vial IV.PUSH PRN ×2 (09:46→23:24)
[2018-05-09] MEDS ORDERED: Potassium Chlor 10 mEq Premix 10 MEQ/100 ML PIGGYBACK IV.SIG ONE (10:00)
--- NOTE | 2018-05-09 11:50 | XR ---
EXAM DATE: 05/09/2018 11:41 AM EST AGE/SEX: 68 years / Female INDICATIONS: Fever. CLINICAL DATA: This is the patient's subsequent encounter. Patient reports that signs and symptoms h ave been present for 2 weeks and indicates a pain score of Nonresponsive. MEDICAL/SURGICAL HISTORY: . Hypertension. Dementia. Diabetes. Cerebrovascular attack. Non-Hodgk in lymphoma. None. COMPARISON: [facility] [place], CHEST 1V SINGLE AP, 05/08/2018. . FINDINGS: The lung bases remain hypoaerated with increased density. There is underlying airspace disease and po ssibly small effusions. Very little change is seen compared to recent study. Endotracheal and nasogastric tubes are in stable position. CONCLUSION: Stable chest with bibasilar airspace disease Stable position of endotracheal and nasogastric tubes. Electronically signed by: Noel Lan MD Board Certified Radiologist 05/09/2018 11:49 AM EST
--- NOTE | 2018-05-09 12:04 | P.DIET ---
Nutritional Evaluation Type of nutrition evaluation: follow-up Nutrition consult regarding: Tube Feeding Nutrition [place] [facility] Screening comments: 05/01 [facility] for TF'ing 05/03 [facility] 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%) % IBW: 113 (IBW = 106lb (-12%)) Body Weight Used for Calculations: Actual (61.6kg) Energy Needs - Lower Range (kCal/kg): 25 Energy Needs - Upper Range (kCal/kg): 30 Lower Limit kCal/kg (kCals): 1,540 Upper Limit kCal/kg (kCals): 1,848 Lower Limit Protein Factor (Grams per Kg): 1.2 Upper Limit Protein Factor (Grams per Kg): 1.4 Lower Protein Needs (Protein): 74 Upper Protein Needs (Protein): 86 Dietitian Reviewed in Medical Record: Curent medications, Intake & Output, Labs , Medical history, Tube feeding Diet Order: NPO Objective Comments: PMH: dementia, DM, high cholesterol, hx of stroke, HTN, non-hodgkin lymphoma, AKA R lower extremity Meds: novolog insulin sliding scale, thiamine Labs: BUN 32, Cr 1.02, estGFR 54, POC glucose 195 297 328 LBM 05/09/18, UOP 3100mL Assessment Assessment: Pt remains currently at nutritional risk r/t AMS and need for TF'ing. Pt remains intubated d/t swollen tongue and increased oxygen requirements. Pt currently receiving TF'ing of Glucerna 1.5 @ goal rate of 60mL/hr. RD continue to recommend decreasing TF to Glucerna 1.5 @ 45mL/hr to provide 1620kcal, 89g of protein, and 820mL of free water to best meet pts assessed needs. ST to evaluate pt w/ swallow eval after pt is extubated. Will continue to monitor TF tolerance, glucose labs. Labs reviewed, dietitian following. Recommendations: 1. RD to recommend decreasing TF to Glucerna 1.5 @ 45mL/hr to best meet pts assessed needs 2. Will continue to monitor TF tolerance, glucose labs 3. Dietitian following Dietitian to Monitor: Lab values, Glucose level, Intake & Output, Tube feeding tolerance, Weight change, PO Intake, Medical course
--- NOTE | 2018-05-09 15:33 | P.PNCC ---
Subjective Subjective Remarks/Hospital Course: This is a 68-year-old female. Admission 04/30/2018. Date of consultation 05/03/2018. Past medical history includes non-Hodgkin's lymphoma in remission since 2008, history of CVA, underlying dementia disorder NOS, hypertension, hyperlipidemia, peripheral vascular disease with known right carotid stenosis, diabetes mellitus, gout, and a known right clavicle fracture. She has a right [id number] amputation from peripheral vascular disease. Patient presents to [facility] 04/30 with recent admissions for catatonia state. Patient was treated under psychiatry to be medically cleared by family medicine practice with little improvement in her symptomatology. She presented here with elevated blood pressure and altered mental status. She received clonidine and hydralazine the results and was started on nicardipine drip and transferred to the intensive care unit. She is also on lisinopril which was discontinued recently. Her nicardipine drip is currently off. This morning, was notified by the RN patient had a swollen tongue and has had increasing oxygen requirements. Patient required emergent intubation with glide scope without complication. Most likely is introduced secondary to JACE inhibitor. Patient is currently on famotidine, diphenhydramine and received 1 dose of steroids. 05/04: Currently resting in bed in no acute distress. Tongue remains swollen. Replace potassium. Restarted on nicardipine drip overnight due to hypertension. 05/05: Remains on nicardipine drip at 5 mg an hour. Tongue remains less swollen today. Will diuresis with bumetanide x1. Does not appear to be any distress. Propofol is currently 50 sunita grams per kilogram per minute. Will lessen sedation today. 05/06: Remains on nicardipine drip at 5 mg an hour. Tongue mitral swollen. Weaning parameters borderline. Emesis during spontaneous breathing trials noted. 05/07/18: Afebrile. Remains in adequate drip at 15 mg an hour.. Will switch to clevidipine for less volume. Neurology requests discontinuation of propofol. Adding hydralazine, isosorbide and carvedilol and attempt to wean off for goal systolic blood pressure less than 110 05/08: Currently wean off midazolam drip. Will attempt CPAP trial again today. She does have left-sided pleural effusion. Will consider DC prior to attempt extubation. Tube feeds at goal. Subjective 3: Failed CPAP. No cuff leak on spontaneous breathing trial early. Start on dexamethasone. FiO2 down to 35%. Diuresed overnight. Objective Vital Signs / I&O: Vital Signs 05/08/18 15:45 05/08/18 15:51 05/08/18 16:00 Temperature Pulse Rate 96 H 94 H 94 H Respiratory Rate 26 H 33 H 23 Blood Pressure 126/61 126/60 Pulse Oximetry 94 L 96 95 05/08/18 16:15 05/08/18 16:30 05/08/18 16:45 Temperature 99 F Pulse Rate 96 H 95 H 95 H Respiratory Rate 24 21 18 Blood Pressure 140/63 138/56 L 133/62 Pulse Oximetry 95 96 95 05/08/18 17:00 05/08/18 17:38 05/08/18 20:00 Temperature 100.2 F H Pulse Rate 95 H 94 H 100 H Respiratory Rate 17 17 Blood Pressure 134/61 170/81 H Pulse Oximetry 96 95 05/08/18 20:24 05/08/18 22:00 05/08/18 22:01 Temperature Pulse Rate 95 H 98 H Respiratory Rate 18 18 Blood Pressure Pulse Oximetry 96 97 05/08/18 23:48 05/09/18 00:00 05/09/18 00:56 Temperature 100.2 F H Pulse Rate 103 H 103 H Respiratory Rate 18 19 19 Blood Pressure 137/56 L Pulse Oximetry 97 97 05/09/18 02:00 05/09/18 02:51 05/09/18 03:48 Temperature Pulse Rate 104 H 101 H Respiratory Rate 14 16 Blood Pressure Pulse Oximetry 95 05/09/18 04:00 05/09/18 06:00 05/09/18 08:00 Temperature 100.9 F H 101.1 F H Pulse Rate 104 H 104 H 104 H Respiratory Rate 17 16 Blood Pressure 145/65 H 127/60 Pulse Oximetry 97 97 05/09/18 08:15 05/09/18 08:30 05/09/18 08:36 Temperature Pulse Rate 102 H 101 H 101 H Respiratory Rate 16 19 17 Blood Pressure 129/60 128/60 Pulse Oximetry 97 97 05/09/18 08:37 05/09/18 08:45 05/09/18 11:51 Temperature Pulse Rate 102 H 91 H Respiratory Rate 28 H 19 30 H Blood Pressure 129/59 L Pulse Oximetry 98 98 96 05/09/18 12:00 05/09/18 12:15 05/09/18 12:30 Temperature 99.5 F Pulse Rate 88 88 88 Respiratory Rate 19 19 20 Blood Pressure 119/58 L 112/55 L 115/59 L Pulse Oximetry 95 95 94 L 05/09/18 15:13 Temperature Pulse Rate 92 H Respiratory Rate 18 Blood Pressure Pulse Oximetry 98 Intake & Output 05/08/18 05/09/18 05/09/18 18:59 06:59 18:59 Intake Total 1322 / 1322 1306 / 1306 550 / 550 Output Total 2400 / 2400 800 / 800 Balance -1078 / -1078 506 / 506 550 / 550 Weight 68.6 kg Intake: IV 550 / 550 450 / 450 550 / 550 Cleviprex Inj 25 mg In 50 ml @ 350 / 350 350 / 350 250 / 250 1 MG/HR 2 mls/hr IV.CONT TITRATE PRN Rx#:[id number] Versed Inj 100 mg In 100 ml @ 1 100 / 100 MG/HR 1 mls/hr IV.CONT TITRATE PRN Rx#:[id number] KCl 10 mEq Premix Inj 10 meq In 100 / 100 100 ml @ 100 mls/hr IV.SIG ONCE ONE Rx#:[id number] KCl 20 mEq Premix Inj 20 meq In 100 / 100 100 ml @ 50 mls/hr IV.SIG Q2H PRN Rx#:[id number] Keppra 1000 mg/100 mL Premix 100 / 100 100 / 100 100 / 100 100 ML @ 400 mls/hr IV.SIG Q12H YUKO Rx#:[id number] Tube Feeding 652 / 652 736 / 736 Tube Irrigant 120 / 120 Water Bolus Amount 120 / 120 Output: Urine 2300 / 2300 800 / 800 Stool 100 / 100 Other: Date of Last Bowel Movement 05/08/18 05/09/18 05/09/18 # Incontinent Bowel Movements 1 Result Diagrams: 05/09/18 05:38 05/09/18 05:38 Other Results: Microbiology 05/02/18 11:30 Cerebral Spinal Fluid - Lumbar Puncture Fungal Smear - Final No fungal elements seen 05/02/18 11:30 Cerebral Spinal Fluid - Lumbar Puncture Fungal Culture - Preliminary No growth in 1 week 05/02/18 11:30 Cerebral Spinal Fluid - Lumbar Puncture Acid Fast Bacilli Smear - Final No acid fast bacilli seen 05/02/18 11:30 Cerebral Spinal Fluid - Lumbar Puncture Mycobacterial Culture - Preliminary No growth in 1 week 05/03/18 08:00 Sputum - Endotracheal Gram Stain - Final 05/03/18 08:00 Sputum - Endotracheal Sputum Culture - Final Heavy growth normal respiratory maritza 05/02/18 11:30 Lumbar Puncture Gram Stain - Final 05/02/18 11:30 Lumbar Puncture CSF Culture - Final No growth in 72 hours Imaging: Carotid Doppler Study 05/01/18 00:00 CONCLUSION: 1. Elevation of the peak systolic velocity of the left internal carotid artery suggesting 50-69% stenosis although the ICA/CCA ratio on the left suggests less than 50% stenosis. CTA of the carotids would be helpful to resolve these discordant findings. There is also elevation of the peak systolic velocity of the left external carotid artery in the 50-69% stenosis range. 2. Less than 50% stenosis involving the right internal carotid artery. 3. Moderate atherosclerotic plaque formation within the carotid bulbs and proximal internal carotid arteries. Head MRI 05/01/18 19:26 There is vasogenic edema seen involving the posterior aspects of the parietal lobes as well as the occipital lobes bilaterally. This is similar to the prior examination. Periventricular high FLAIR signal abnormality also noted involving both cerebral hemispheres but most pronounced within the parietal lobes. This is unchanged. A small lacunar infarction involving the left abraham radiata. No hemorrhage. No acute infarction. Normal flow voids within the major intracranial vessels. Ventricles are normal in size. Orbital structures are normal. No abnormal enhancement following gadolinium. Mucosal thickening without air-fluid levels involving anterior ethmoid air cells on the right. Remaining paranasal sinuses are clear. Fluid signal seen within the mastoid air cells bilaterally but more pronounced on the left. CONCLUSION: 1. Study degraded by motion artifact. 2. Vasogenic edema involving the parietal and occipital lobes bilaterally is stable. Although not specific for this could relate to posterior reversible encephalopathy syndrome (PRES). 3. Atrophy. 4. Chronic small vessel ischemic change. Lumbar Puncture Fluoroscopy 05/02/18 00:00 CONCLUSION: 1. Uncomplicated fluoroscopically guided lumbar puncture. Abdomen/Pelvis CT 05/03/18 00:00 CONCLUSION: 1. Questionable mass within the body of the pancreas measuring 1.7 x 2.6 cm. MRI of the abdomen with contrast may be helpful for further characterization of this questionable mass if clinically indicated. 2. Gallbladder wall is mildly thickened. If there is clinical concern for acute cholecystitis, a hepatobiliary scan may be helpful to confirm cystic duct obstruction. 3. Liver is enlarged and appears somewhat nodular in contour raising the possibility of cirrhosis. No focal mass is noted. 4. Small bilateral pleural effusions with adjacent alveolar consolidations are noted. 5. Tiny pericardial effusion. 6. Minimal ascites. 7. 11 mm calcified fibroid within the uterus. 8. Degenerative changes and scoliosis of the thoracolumbar spine. Chest CT 05/03/18 00:00 CONCLUSION: 1. Small bilateral pleural effusions. 2. Posterior bibasilar alveolar consolidations consistent with compressive atelectasis and/or pneumonia. Clinical correlation is recommended. 3. Tiny pericardial effusion. 4. Cardiomegaly and coronary artery calcifications. 5. No pulmonary nodule, mass or lymphadenopathy. 6. Scoliosis and degenerative changes involving the thoracic spine. Chest X-Ray 05/03/18 07:08 CONCLUSION: 1. Improved position of the endotracheal tube which is now 3 cm above the tim. 2. Scattered bibasilar atelectasis. 3. Degenerative changes and scoliosis of the thoracic spine. Chest X-Ray 05/03/18 07:09 CONCLUSION: 1. Endotracheal tube is low in position at the level of the tim and directed towards the right mainstem bronchus. This should be pulled back 3 cm for more optimal positioning. 2. Scattered atelectatic changes bilaterally. 3. Degenerative changes and scoliosis of the thoracic spine. Abdomen MRI 05/04/18 00:00 CONCLUSION: 1. No pancreatic mass identified on MRI. 2. Bilateral pleural effusions. Moderate anasarca. Mild ascites. Chest X-Ray 05/05/18 06:00 CONCLUSION: Worsening mild consolidation and small pleural effusions at each base. New nasogastric tube coursing into the stomach, tip not included on the study. Endotracheal tube tip is about 2 cm above the tim. Chest X-Ray 05/06/18 06:00 CONCLUSION: Bibasilar areas of consolidation or atelectasis being worse on the left. Some degree of a left effusion can be considered. Chest X-Ray 05/08/18 06:00 CONCLUSION: Hazy density bilaterally which may be secondary to effusions layering posteriorly. Some degree of consolidation or atelectasis at the bases can also be considered. Chest X-Ray 05/09/18 11:12 CONCLUSION: Stable chest with bibasilar airspace disease Stable position of endotracheal and nasogastric tubes. Objective Remarks: GENERAL: This is a 68-year-old female currently orotracheally intubated in no acute distress SKIN: Warm and dry. HEAD: Atraumatic. Normocephalic. EYES: Pupils equal and round around 3 mm bilaterally and reactive. No scleral icterus. No injection or drainage. ENT: No nasal bleeding or discharge. Mucous membranes pink and moist. Tongue less edematous and swollen NECK: Trachea midline. No JVD. CARDIOVASCULAR: Regular rate and rhythm. S1, S2. No S4. RESPIRATORY: No accessory muscle use. Patient bases with few crackles. GASTROINTESTINAL: Abdomen soft, non-tender, obese. Hepatic and splenic margins not palpable. MUSCULOSKELETAL: Extremities trace bilateral lower extremity edema. No obvious deformities. NEUROLOGICAL: Patient arousable moving all 4 extremities spontaneously to command. Positive cough and gag. Positive corneal reflex. Withdraws to pain. Assessment and Plan - Assessment and Plan Plan: Neuro/Psych: Acute encephalopathy Possible PRES History of CVA Seizure disorder NOS Cat[place] MRI brain revealed vasogenic edema in the bilateral posterior occipital lobes. Possible differential includes PRES Evaluate Dr. Mehta/neurology. Continue aspirin 81 mg daily. Goal blood pressure between 110 120 systolic. Lumbar puncture 05/02 unremarkable Remains on levetiracetam 1000 mg twice daily for seizures Depression medication escitalopram 20 mg daily Hold gabapentin 60o mg twice daily Family medicine has patient scheduled lorazepam 1 mg every 6 hours Currently off midazolam drip for sedation while intubated Goal of RA SS -2 Daily sedation vacation persistent CV: Hypertensive emergency Hyper lipedema Peripheral vascular disease Noted 2D echocardiogram 05/01 revealed EF around 55-60 with no regional wall motion abnormalities with small pericardial effusion. Goal keep systolic blood pressure around 110-120 per neurology's recommendations Previously on hydralazine, clonidine scheduled. Switching amlodipine 10 mg daily, carvedilol 25 mg twice daily, hydralazine 100 3 times daily and isosorbide dinitrate 5 mg 3 times daily As needed hydralazine, Nitropaste and labetalol Switch nicardipine drip to clevidipine drip maintain systolic blood pressure is 110. Continue atorvastatin 20 mg daily Carotid Dopplers revealed left stenosis 50-69%. Right less than 50%. Bumetanide 2 mg IV x1 today. Resp: Acute respiratory failure secondary angioedema [facility] 14500/1.05/11/34 Ventilator bundle Albuterol/ipratropium aerosols every 4 hours with albuterol every 2 as needed dyspnea No spontaneous breathing trials until angioedema resolving Follow-up on post intubation chest x-ray and ABG Currently on scheduled diphenhydramine 50 mg IV every 6 hours stop date 05/04, famotidine 20 mg IV twice daily and received 1 dose of methylprednisolone succinate 125 mg x1 No cuff leak. Decadron 4 mg q. 8 hours x 2 days GI: Continue tube feeding with Glucerna 1.5 goal 45 cc an hour. Noted CT abdomen/pelvis revealed pancreatic mass. The abdominal MRI no pancreatic mass. Noted normal CA 19/9, CEA and CA 125 NG tube to low intermittent wall suction currently Famotidine for GI prophylaxis Docusate serum/senna 1 tablet twice daily for bowel regimen : Currently with [place] catheter. Endo: Diabetes mellitus type 2 Gout Sliding scale insulin with aspart insulin every 6 hours low regimen Accu-Cheks to maintain euglycemia TSH 0.5-4 Holding metformin and glimepiride. Renal: Creatinine currently within normal limits Monitor urine output Acute I's and O's Heme: Normocytic anemia Leukocytosis Monitor CBC daily. Follow trends. No indication for transfusion of blood products at this time ID: Check sputum no growth to date Monitor for signs of hematology infection FEN: Acute hypo-kalemia Replace electrolytes as clinically indicated per ICU electrolyte protocol Discontinue all IV fluids MSK: Right [id number] amputation PT/OT evaluate and treat Access -Utilize peripheral IV. Central line if indicated Prophylaxis -GI -famotidine -DVT -SCD/heparin subcu Level 3 follow-up
[2018-05-09] MEDS: Insulin Detemir Inj 1,000 UNIT/10 ML Vial SQ SCH (21:00)
[2018-05-10] MEDS: levETIRAcetam 1000mg/100mL Inj 100 ML IV.SIG SCH ×2 (00:16→12:02)
[2018-05-10] MEDS: Oral Hygiene Kit OROPHARYNG SCH ×5 (00:17→23:32)
[2018-05-10] MEDS: Clevidipine Inj 25 MG/50 ML VIAL IV.CONT PRN ×11 (00:21→23:23)
[2018-05-10] MEDS: Insulin NovoLOG Aspart Correctional Sugar Inj SQ SCH ×4 (00:29→17:08)
[2018-05-10] MEDS: hydrALAZINE 10 MG Tablet NG/OG PRN (01:26)
[2018-05-10 05:27] LABS: Baso # (Auto) 0.1 th/mm3 (0.0-0.2); Baso % (Auto) 0.7 % (0.0-2.0); Eos # (Auto) 0.1 th/mm3 (0.0-0.4); Eos % (Auto) 0.8 % (0.0-4.0); Hematocrit 32.6 % (35.0-46.0); Hemoglobin 11.2 gm/dL (11.6-15.3); Lymph # (Auto) 2.3 th/mm3 (1.0-4.8); Lymph % (Auto) 13.8 % (9.0-44.0); Mean Corpuscular HGB Conc 34.4 % (32.0-36.0); Mean Corpuscular Hemoglobin 31.8 pg (27.0-34.0); Mean Corpuscular Volume 92.5 fL (80.0-100.0); Mean Platelet Volume 9.4 fL (7.0-11.0); Mono # (Auto) 1.5 th/mm3 (0.0-0.9); Mono % (Auto) 8.8 % (0.0-8.0); Neut # (Auto) 12.9 th/mm3 (1.8-7.7); Neut % (Auto) 75.9 % (16.0-70.0); Platelet Count 368 th/mm3 (150-450); Red Blood Count 3.53 mil/mm3 (4.00-5.30); Red Cell Distribution Width 14.4 % (11.6-17.2)
[2018-05-10 05:51] LABS: Calcium 8.2 mg/dL (8.5-10.1); Carbon Dioxide 22.5 meq/L (21.0-32.0); Magnesium 1.9 mg/dL (1.5-2.5); Potassium 3.9 meq/L (3.5-5.1)
[2018-05-10 05:52] LABS: Phosphorus 3.3 mg/dL (2.5-4.9)
[2018-05-10] MEDS: Labetalol HCl Inj 100 MG/20 ML Vial IV.PUSH PRN ×3 (06:14→23:29)
[2018-05-10] MEDS: Artificial Tears Opth Drops 15 ML Bottle EACH EYE SCH ×3 (06:58→22:31)
[2018-05-10 07:21] LABS: Eosinophils 1 % (0-4); Lymphocytes 13 % (9-44); Metamyelocytes 6 % (0-1); Monocytes 4 % (0-8); Myelocytes 6 % (0-0); Tallied Nucleated RBC 2 (0-0)
[2018-05-10 07:23] LABS: Platelet Estimate Normal (Normal); Platelet Morphology Normal (Normal); RBC Morphology Normal (Normal)
--- NOTE | 2018-05-10 07:38 | P.PNNEU ---
Subjective Active Medications: Active Medications Acetaminophen (Tylenol Liq) 650 mg NG/OG Q6H PRN PRN Reason: PAIN 1-10 AND/OR FEVER >101F Al Hydroxide/Mg Hydroxide (Milk Of Magnesia Liq) 30 ml PO Q12H PRN PRN Reason: Mild Constipation Albuterol (Duoneb Neb (Eloy)) 1 ampul NEB Q4HR NEB [facility] Last Admin: 05/10/18 04:22 Dose: 1 ampul Albuterol (Albuterol Neb (Prn)) 2.5 mg NEB Q2HR NEB PRN PRN Reason: DYSPNEA Amlodipine Besylate (Norvasc) 10 mg PO DAILY [facility] Last Admin: 05/09/18 08:05 Dose: 10 mg Artificial Tears (Tears Naturale Opth Drops) 1 drop EACH EYE Q8H [facility] Last Admin: 05/10/18 06:58 Dose: Not Given Aspirin (Aspirin Chew) 81 mg NG/OG DAILY [facility] Last Admin: 05/09/18 08:05 Dose: 81 mg Atorvastatin Calcium (Lipitor) 40 mg NG/OG HS [facility] Last Admin: 05/09/18 20:59 Dose: 40 mg Bisacodyl (Dulcolax Supp) 10 mg RECTAL DAILY PRN PRN Reason: SEVERE CONSITIPATION Carvedilol (Coreg) 6.25 mg PO BID [facility] Last Admin: 05/09/18 20:59 Dose: 6.25 mg Chlorhexidine Gluconate (Peridex 0.12% Oral Kit) 15 ml OROPHARYNG BID@0800, 2000 [facility] Last Admin: 05/09/18 20:59 Dose: 15 ml Dexamethasone Sodium Phosphate (Decadron Inj) 4 mg IV.PUSH Q8HR [facility] Stop: 05/11/18 21:59 Last Admin: 05/10/18 05:32 Dose: 4 mg Dextrose (D50w Vial) 50 ml IV.PUSH UNSCH PRN PRN Reason: PER HYPOGLYCEMIA PROTOCOL Famotidine (Pepcid Pf Inj) 20 mg IV.PUSH Q12HR [facility] Last Admin: 05/09/18 20:59 Dose: 20 mg Gabapentin (Neurontin) 600 mg PO BID [facility] Last Admin: 05/01/18 08:56 Dose: Not Given Glucagon (Glucagon Inj) 1 mg OTHER PRN PRN PRN Reason: for Hypoglycemia Protocol Heparin Sodium (Porcine) (Heparin Inj) 5,000 units SQ Q12HR [facility] Last Admin: 05/09/18 21:00 Dose: 5,000 units Hydralazine HCl (Apresoline) 25 mg NG/OG QID PRN PRN Reason: SEE LABEL COMMENTS Last Admin: 05/10/18 01:26 Dose: 25 mg Hydralazine HCl (Apresoline Inj) 10 mg IV.PUSH Q1H PRN PRN Reason: sbp > 140 Last Admin: 05/08/18 22:04 Dose: 10 mg Hydralazine HCl (Apresoline) 100 mg PO TID [facility] Last Admin: 05/09/18 16:59 Dose: 100 mg Levetiracetam (Keppra 1000 Mg/100 Ml Premix) 100 mls @ 400 mls/hr IV.SIG Q12H [facility] Last Infusion: 05/10/18 01:26 Dose: Infused Fentanyl (Fentanyl 10 Mcg/Ml Premix Drip) 2,500 mcg in 250 mls @ 5 mls/hr IV.SIG TITRATE PRN; Protocol PRN Reason: Per Protocol Magnesium Sulfate 4 gm/ Sodium (Chloride) 100 mls @ 50 mls/hr IV.SIG UNSCH PRN PRN Reason: For Magnesium 0.9 - 1.1 mg/dL Magnesium Sulfate 2 gm/ Sodium (Chloride) 100 mls @ 50 mls/hr IV.SIG UNSCH PRN PRN Reason: For Magnesium 1.2 - 1.6 mg/dL Potassium Chloride (Kcl 40 Meq Premix Inj) 40 meq in 100 mls @ 25 mls/hr IV.SIG Q2H PRN PRN Reason: For Potassium 2.8 - 3.2 mEq/L Potassium Chloride (Kcl 20 Meq Premix Inj) 20 meq in 100 mls @ 50 mls/hr IV.SIG Q2H PRN PRN Reason: For Potassium 3.3 - 3.5 mEq/L Last Infusion: 05/04/18 12:43 Dose: Infused Potassium Chloride (Kcl 40 Meq Premix Inj) 40 meq in 100 mls @ 25 mls/hr IV.SIG UNSCH PRN PRN Reason: For Potassium 3.3 - 3.5 mEq/L Potassium Chloride (Kcl 20 Meq Premix Inj) 20 meq in 100 mls @ 50 mls/hr IV.SIG Q2H PRN PRN Reason: For Potassium 2.8 - 3.2 mEq/L Last Infusion: 05/09/18 09:54 Dose: Infused Potassium Phosphate 30 mmol/ (Sodium Chloride) 260 mls @ 42 mls/hr IV.SIG UNSCH PRN PRN Reason: SEE LABEL COMMENTS Sodium Phosphate 30 mmol/ (Sodium Chloride) 260 mls @ 42 mls/hr IV.SIG UNSCH PRN PRN Reason: For Phosphorus < 2.5 mg/dL Clevidipine (Cleviprex Inj) 25 mg in 50 mls @ 2 mls/hr IV.CONT TITRATE PRN; Protocol PRN Reason: Per protocol Last Admin: 05/10/18 07:00 Dose: 14 mg/hr, 28 mls/hr Midazolam HCl (Versed Inj) 100 mg in 100 mls @ 1 mls/hr IV.CONT TITRATE PRN; Protocol PRN Reason: See protocol Last Titration: 05/08/18 09:37 Dose: 0 mg/hr, 0 mls/hr Insulin Aspart (Novolog Insulin Correctional Sugar Inj) 0 unit SQ Q6HR [facility]; Protocol Last Admin: 05/10/18 05:36 Dose: 7 unit Insulin Detemir (Levemir Inj) 5 unit SQ BID [facility] Last Admin: 05/09/18 21:00 Dose: 5 unit Isosorbide Dinitrate (Isordil) 5 mg PO TIDAC [facility] Last Admin: 05/09/18 16:13 Dose: 5 mg Labetalol HCl (Trandate Inj) 10 mg IV.PUSH Q1H PRN PRN Reason: Sbp>140, Dbp>90, Hr>65 Last Admin: 05/10/18 06:14 Dose: 10 mg Lactulose (Lactulose Liq) 30 ml PO DAILY PRN PRN Reason: SEVERE CONSITIPATION Magnesium Oxide (Mag-Ox) 800 mg PO UNSCH PRN PRN Reason: For Magnesium 1.2 - 1.6 mg/dL Miscellaneous Medication () 1 each OROPHARYNG 0000,0400,1200,1600 [facility] Last Admin: 05/10/18 05:33 Dose: 1 each Ondansetron HCl (Zofran Inj) 4 mg IV.PUSH Q6H PRN PRN Reason: NAUSEA Potassium Bicarb/Potassium Chloride (K-Lyte Cl Eff) 50 meq PO UNSCH PRN PRN Reason: For Potassium 3.3 - 3.5 mEq/L Last Admin: 05/09/18 09:12 Dose: 50 meq Potassium Phosphate (K-Phos Original) 2,000 mg PO Q4H PRN PRN Reason: Phosphorus Less Than 2.5 mg/dL Potassium Phosphate (K-Phos Original) 2,000 mg PO UNSCH PRN PRN Reason: SEE LABEL COMMENTS Senna/Docusate Sodium (Aleah-Colace) 1 tab PO BID [facility] Last Admin: 05/09/18 21:01 Dose: Not Given Sennosides (Senokot) 17.2 mg PO Q12H PRN PRN Reason: Moderate Constipation Sodium Chloride (Ns Flush) 2 ml IV.FLUSH BID [facility] Last Admin: 05/09/18 21:01 Dose: 2 ml Sodium Chloride (Ns Flush) 2 ml IV.FLUSH UNSCH PRN PRN Reason: FLUSH AFTER USING IV ACCESS Last Admin: 05/06/18 08:32 Dose: 2 ml Thiamine HCl (Thiamine Inj) 100 mg IM DAILY [facility] Last Admin: 05/09/18 08:05 Dose: 100 mg Allergies/Adverse Reactions: Allergies Allergy/AdvReac Type Severity Reaction Status Date / Time JACE Inhibitors Allergy Swelling Verified 05/06/18 12:26 of Lip/Tongue/Throat iodine Allergy Swelling Verified 04/19/18 15:50 Physical Exam Vital signs: Vital Signs 05/09/18 08:00 05/09/18 08:15 05/09/18 08:30 Temperature 101.1 F H Pulse Rate 104 H 102 H 101 H Respiratory Rate 16 16 19 Blood Pressure 127/60 129/60 128/60 Pulse Oximetry 97 97 97 05/09/18 08:36 05/09/18 08:37 05/09/18 08:45 Temperature Pulse Rate 101 H 102 H Respiratory Rate 17 28 H 19 Blood Pressure 129/59 L Pulse Oximetry 98 98 05/09/18 11:51 05/09/18 12:00 05/09/18 12:15 Temperature 99.5 F Pulse Rate 91 H 88 88 Respiratory Rate 30 H 19 19 Blood Pressure 119/58 L 112/55 L Pulse Oximetry 96 95 95 05/09/18 12:30 05/09/18 15:13 05/09/18 16:00 Temperature 99.5 F Pulse Rate 88 92 H 94 H Respiratory Rate 20 18 16 Blood Pressure 115/59 L 124/60 Pulse Oximetry 94 L 98 98 05/09/18 17:45 05/09/18 18:00 05/09/18 18:15 Temperature Pulse Rate 94 H 93 H 96 H Respiratory Rate 21 22 19 Blood Pressure 121/58 L 120/59 L 127/58 L Pulse Oximetry 100 98 05/09/18 18:30 05/09/18 18:45 05/09/18 19:00 Temperature Pulse Rate 92 H 92 H 92 H Respiratory Rate 25 H 24 16 Blood Pressure 117/56 L 115/56 L 126/60 Pulse Oximetry 99 99 95 05/09/18 19:15 05/09/18 19:30 05/09/18 19:45 Temperature Pulse Rate 92 H 94 H 96 H Respiratory Rate 18 18 19 Blood Pressure 131/63 135/55 L 128/61 Pulse Oximetry 95 96 96 05/09/18 20:00 05/09/18 20:15 05/09/18 20:18 Temperature 99.7 F H Pulse Rate 96 H 97 H 97 H Respiratory Rate 19 17 17 Blood Pressure 129/62 133/63 Pulse Oximetry 96 96 97 05/09/18 20:30 05/09/18 20:45 05/09/18 21:00 Temperature Pulse Rate 96 H 96 H 96 H Respiratory Rate 16 17 14 Blood Pressure 130/63 129/62 129/59 L Pulse Oximetry 97 95 96 05/09/18 21:15 05/09/18 21:30 05/09/18 21:45 Temperature Pulse Rate 96 H 97 H 97 H Respiratory Rate 17 16 16 Blood Pressure 132/60 131/60 131/60 Pulse Oximetry 96 96 97 05/09/18 22:00 05/09/18 22:15 05/09/18 22:30 Temperature Pulse Rate 96 H 96 H 96 H Respiratory Rate 16 16 15 Blood Pressure 133/60 127/61 131/63 Pulse Oximetry 96 97 97 05/09/18 22:45 05/09/18 23:00 05/09/18 23:15 Temperature Pulse Rate 96 H 97 H 96 H Respiratory Rate 15 15 16 Blood Pressure 129/58 L 133/60 130/63 Pulse Oximetry 97 97 97 05/09/18 23:26 05/09/18 23:30 05/09/18 23:45 Temperature Pulse Rate 96 H 85 87 Respiratory Rate 14 14 14 Blood Pressure 117/57 L 127/61 Pulse Oximetry 96 99 97 01/04/19 00:00 05/10/18 00:15 05/10/18 00:30 Temperature 99.2 F Pulse Rate 90 89 90 Respiratory Rate 14 14 15 Blood Pressure 125/56 L 122/60 112/52 L Pulse Oximetry 97 97 97 05/10/18 00:45 05/10/18 01:00 05/10/18 01:15 Temperature Pulse Rate 91 H 91 H 91 H Respiratory Rate 15 16 15 Blood Pressure 144/65 H 139/65 137/63 Pulse Oximetry 97 96 97 05/10/18 01:30 05/10/18 01:45 05/10/18 02:00 Temperature Pulse Rate 91 H 94 H 91 H Respiratory Rate 16 25 H 16 Blood Pressure 132/63 137/63 131/60 Pulse Oximetry 96 95 95 05/10/18 02:15 05/10/18 02:30 05/10/18 02:45 Temperature Pulse Rate 92 H 87 87 Respiratory Rate 15 15 14 Blood Pressure 128/62 117/50 L 119/57 L Pulse Oximetry 95 95 95 05/10/18 03:00 05/10/18 03:15 05/10/18 03:30 Temperature Pulse Rate 90 90 88 Respiratory Rate 15 14 14 Blood Pressure 131/60 132/62 128/61 Pulse Oximetry 96 96 96 05/10/18 03:45 05/10/18 04:00 05/10/18 04:22 Temperature 99.1 F Pulse Rate 89 83 84 Respiratory Rate 21 15 14 Blood Pressure 132/65 125/60 Pulse Oximetry 94 L 95 95 Intake & Output 05/09/18 05/10/18 05/10/18 18:59 06:59 18:59 Intake Total 893 / 893 1213 / 1213 50 / 50 Output Total 800 / 800 600 / 600 Balance 93 / 93 613 / 613 50 / 50 Weight 68.8 kg Intake: IV 550 / 550 500 / 500 50 / 50 Cleviprex Inj 25 mg In 50 ml @ 250 / 250 400 / 400 50 / 50 1 MG/HR 2 mls/hr IV.CONT TITRATE PRN Rx#:[id number] KCl 10 mEq Premix Inj 10 meq In 100 / 100 100 ml @ 100 mls/hr IV.SIG ONCE ONE Rx#:[id number] KCl 20 mEq Premix Inj 20 meq In 100 / 100 100 ml @ 50 mls/hr IV.SIG Q2H PRN Rx#:[id number] Keppra 1000 mg/100 mL Premix 100 / 100 100 / 100 100 ML @ 400 mls/hr IV.SIG Q12H ELOY Rx#:[id number] Tube Feeding 143 / 143 593 / 593 Water Bolus Amount 200 / 200 120 / 120 Output: Urine 800 / 800 600 / 600 Other: # Incontinent Voids 3 Date of Last Bowel Movement 05/09/18 05/10/18 # Incontinent Bowel Movements 7 1 Narrative: awake makes good eye cntact move and withdraws leg well tracks me around room not following other commands still on vent - Urinary Catheter Management Straight Cath placed during this visit: no Objective Laboratory Results - last 24 hr 05/06/18 05/09/18 05/09/18 13:09 05:38 11:03 WBC RBC Hgb Hct MCV MCH MCHC RDW Plt Count MPV Prelim Diff (Auto) Neut % (Auto) Lymph % (Auto) [place] % (Auto) Eos % (Auto) Baso % (Auto) Neut # (Auto) Lymph # (Auto) [place] # (Auto) Eos # (Auto) Baso # (Auto) WBC Differential Manual diff final Seg Neuts % (Manual) 59 Band Neuts % (Manual) 7 H Lymphocytes % (Manual) 11 Monocytes % (Manual) 10 H Eosinophils % (Manual) 3 Basophils % (Manual) 2 Metamyelocytes % (Man) 4 H Myelocytes % (Man) 2 H Promyelocytes % (Man) 2 H Abs Neuts (Manual) 10.2 H Nucleated RBCs/100 WBC Differential Comment Platelet Estimate Normal Platelet Morphology Normal RBC Morphology Normal Sodium Potassium Chloride Carbon Dioxide Anion Gap BUN Creatinine Estimated GFR POC Glucose 328 H Random Glucose Calcium Phosphorus Magnesium Anti-Ri Ab ([place]) Not Reportable 05/09/18 05/09/18 05/10/18 16:54 19:02 00:29 WBC RBC Hgb Hct MCV MCH MCHC RDW Plt Count MPV Prelim Diff (Auto) Neut % (Auto) Lymph % (Auto) [place] % (Auto) Eos % (Auto) Baso % (Auto) Neut # (Auto) Lymph # (Auto) [place] # (Auto) Eos # (Auto) Baso # (Auto) WBC Differential Seg Neuts % (Manual) Band Neuts % (Manual) Lymphocytes % (Manual) Monocytes % (Manual) Eosinophils % (Manual) Basophils % (Manual) Metamyelocytes % (Man) Myelocytes % (Man) Promyelocytes % (Man) Abs Neuts (Manual) Nucleated RBCs/100 WBC Differential Comment Platelet Estimate Platelet Morphology RBC Morphology Sodium Potassium 3.6 Chloride Carbon Dioxide Anion Gap BUN Creatinine Estimated GFR POC Glucose 279 H 292 H Random Glucose Calcium Phosphorus Magnesium Anti-Ri Ab ([place]) 05/10/18 05/10/18 05/10/18 04:58 04:58 05:35 WBC 17.0 H RBC 3.53 L Hgb 11.2 L Hct 32.6 L MCV 92.5 MCH 31.8 MCHC 34.4 RDW 14.4 Plt Count 368 MPV 9.4 Prelim Diff (Auto) Slide review pending Neut % (Auto) 75.9 H Lymph % (Auto) 13.8 [place] % (Auto) 8.8 H Eos % (Auto) 0.8 Baso % (Auto) 0.7 Neut # (Auto) 12.9 H Lymph # (Auto) 2.3 [place] # (Auto) 1.5 H Eos # (Auto) 0.1 Baso # (Auto) 0.1 WBC Differential Manual diff final Seg Neuts % (Manual) 64 Band Neuts % (Manual) 5 Lymphocytes % (Manual) 13 Monocytes % (Manual) 4 Eosinophils % (Manual) 1 Basophils % (Manual) 1 Metamyelocytes % (Man) 6 H Myelocytes % (Man) 6 H Promyelocytes % (Man) Abs Neuts (Manual) 13.8 H Nucleated RBCs/100 WBC 2 H Differential Comment . Platelet Estimate Normal Platelet Morphology Normal RBC Morphology Normal Sodium 143 Potassium 3.9 Chloride 113 H Carbon Dioxide 22.5 Anion Gap 8 BUN 35 H Creatinine 0.95 Estimated GFR 59 L POC Glucose 254 H Random Glucose 249 H Calcium 8.2 L Phosphorus 3.3 Magnesium 1.9 Anti-Ri Ab ([place]) Microbiology 05/02/18 11:30 Fungal Smear - Final Cerebral Spinal Fluid - Lumbar Puncture No fungal elements seen Fungal Culture - Preliminary No growth in 1 week 05/02/18 11:30 Acid Fast Bacilli Smear - Final Cerebral Spinal Fluid - Lumbar Puncture No acid fast bacilli seen Mycobacterial Culture - Preliminary No growth in 1 week Review/Management - Diagnosis (1) Hypertensive encephalopathy Code(s): I67.4 - Hypertensive encephalopathy Status: Acute Current Visit: Yes (2) HTN (hypertension) Code(s): I10 - Essential (primary) hypertension Status: Acute Current Visit : No (3) Dementia Code(s): F03.90 - Unspecified dementia without behavioral disturbance Status: Acute Current Visit: No (4) Seizures Code(s): R56.9 - Unspecified convulsions Status: Acute Current Visit: No (5) Anxiety Code(s): F41.9 - Anxiety disorder, unspecified Status: Acute Current Visit: No - Review/Management Plan: 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 may have element of PRES as noted in prior notes recs check csf studies-pending bp control Thiamine supplementation follow exam Dr. Mehta to follow in a.m. 05/01/18 mri loops like PRES mra and mrv and labs all neg keep bp 110-120/ LP today eeg neg on keppra --------- 05/02/18 looks a little better mri repeat yest no change pres bp better keep 110-120/ await LP needs done today!! on keppra 05/03/18 mri no change eeg neg LP neg bp better check ct abd and pelvis and chest paraneo 05/06/18 looks so much better neurowise check paraneoplastic labs PRES clinically better thiamine pend will recheck mri in few days keep bp down 110-120/ ct chest and abd ok 05/07/18 sedated i dw med team pt looked to have early changes of pres 2 days after admit and bp initially 186/ in er the Question of which came first the pres or the catatonia ? i think overall the pres likley caused the ms changes as bp came down she is so much better yest i dw nurse hold sedative should awaken she was on seroquel and lexapro i believe b4 admit and nms considered with drastic improvement clinically would not rec ect need to inc po meds for bp control i see no major hypotension documented when not on iv meds 05/08/18 will need to keep off sedatives i dw nurse keep bp 110-120/ possible extubation today as above i am not convinced she had catatonia b4 pres started as bp taken in er day b4 ms changes in 180/ range regardless with ms improvement with rx of bp i am not recommending ect at this time 05/09/17 130-170/ we need to keep bp 110-120 at all times more awake off sedatives working on extubation 05/10/18 would like bp 110-120/ recheck mri looking well overall await extubation when can will fu sunday call neuro concrete handler if any ? (2) HTN (hypertension) Qualifiers: Hypertension type: other secondary hypertension Qualified Code(s): I15.8 - Other secondary hypertension
[2018-05-10] MEDS: Chlorhexidine 0.12% Oral Kit 15 ML UDC OROPHARYNG SCH ×2 (08:31→20:38)
[2018-05-10] MEDS: hydrALAZINE 25 MG Tablet PO SCH ×3 (08:32→17:07)
[2018-05-10] MEDS: Heparin - SQ 10,000 UNITS/ML Vial SQ SCH ×2 (08:32→20:38)
[2018-05-10] MEDS: amLODIPine 10 MG Tablet PO SCH (08:33)
[2018-05-10] MEDS: Famotidine PF Inj 20 MG/2 ML Vial IV.PUSH SCH ×2 (08:33→20:39)
[2018-05-10] MEDS: Insulin Detemir Inj 1,000 UNIT/10 ML Vial SQ SCH ×2 (08:33→20:38)
[2018-05-10] MEDS: Senna/Docusate Sodium 8.6/50 MG Tablet PO SCH ×2 (08:33→20:39)
--- NOTE | 2018-05-10 09:43 | P.PNFP ---
Subjective Interval history: Ms Pedroza is alert today, more than in previous days. She hopefully will come off her vent today. Consulted Psychiatry and Neurology. She has both PRES and catatonia. Considering transfer to [facility] in [place] if she does not continue to improve. However, per assessment of Psychiatry today, she is improving with her catatonia. ECT is used when Pts do not improve as it is the best treatment for recalcitrant catatonia. We do not have this treatment here so she would need to be transferred if this is required. Neurology believes this is PRES causing all her mental issues. If she required transfer to [facility] both Neurology and Psychiatry could assess her. But, as long as she is getting better we can hold off on the transfer for now. Ms Pedroza was able to nod today and move her extremities in a cooperative way. She is still on her ventilator and is going down for an MRI now. Results - Labs Result diagrams: 05/10/18 04:58 05/10/18 04:58 Abnormal lab results 05/09/18 05/09/18 05/10/18 Range/Units 11:03 16:54 00:29 WBC (4.0-11.0) th/mm3 RBC (4.00-5.30) mil/mm3 Hgb (11.6-15.3) gm/dL Hct (35.0-46.0) % Neut % (Auto) (16.0-70.0) % Humphreys % (Auto) (0.0-8.0) % Neut # (Auto) (1.8-7.7) th/mm3 Humphreys # (Auto) (0.0-0.9) th/mm3 Metamyelocytes % (Man) (0-1) % Myelocytes % (Man) (0-0) % Abs Neuts (Manual) (1.8-7.7) th/mm3 Nucleated RBCs/100 WBC (0-0) /100 WBC Chloride (98-107) meq/L BUN (7-18) mg/dL Estimated GFR (>89) mL/min POC Glucose 328 H 279 H 292 H (68-110) mg/dl Random Glucose (74-106) mg/dL Calcium (8.5-10.1) mg/dL 05/10/18 05/10/18 05/10/18 Range/Units 04:58 04:58 05:35 WBC 17.0 H (4.0-11.0) th/mm3 RBC 3.53 L (4.00-5.30) mil/mm3 Hgb 11.2 L (11.6-15.3) gm/dL Hct 32.6 L (35.0-46.0) % Neut % (Auto) 75.9 H (16.0-70.0) % Humphreys % (Auto) 8.8 H (0.0-8.0) % Neut # (Auto) 12.9 H (1.8-7.7) th/mm3 Humphreys # (Auto) 1.5 H (0.0-0.9) th/mm3 Metamyelocytes % (Man) 6 H (0-1) % Myelocytes % (Man) 6 H (0-0) % Abs Neuts (Manual) 13.8 H (1.8-7.7) th/mm3 Nucleated RBCs/100 WBC 2 H (0-0) /100 WBC Chloride 113 H (98-107) meq/L BUN 35 H (7-18) mg/dL Estimated GFR 59 L (>89) mL/min POC Glucose 254 H (68-110) mg/dl Random Glucose 249 H (74-106) mg/dL Calcium 8.2 L (8.5-10.1) mg/dL Short CBC 05/10/18 Range/Units 04:58 WBC 17.0 H (4.0-11.0) th/mm3 Hgb 11.2 L (11.6-15.3) gm/dL Hct 32.6 L (35.0-46.0) % Plt Count 368 (150-450) th/mm3 [facility] 05/09/18 05/10/18 19:02 04:58 Sodium 143 Potassium 3.6 3.9 Chloride 113 H Carbon Dioxide 22.5 BUN 35 H Creatinine 0.95 Calcium 8.2 L - Imaging Impressions Chest X-Ray 05/09/18 11:12 CONCLUSION: Stable chest with bibasilar airspace disease Stable position of endotracheal and nasogastric tubes. Physical Exam Vital signs: Vital Signs 05/09/18 11:51 05/09/18 12:00 05/09/18 12:15 Temperature 99.5 F Pulse Rate 91 H 88 88 Respiratory Rate 30 H 19 19 Blood Pressure 119/58 L 112/55 L Pulse Oximetry 96 95 95 05/09/18 12:30 05/09/18 15:13 05/09/18 16:00 Temperature 99.5 F Pulse Rate 88 92 H 94 H Respiratory Rate 20 18 16 Blood Pressure 115/59 L 124/60 Pulse Oximetry 94 L 98 98 05/09/18 17:45 05/09/18 18:00 05/09/18 18:15 Temperature Pulse Rate 94 H 93 H 96 H Respiratory Rate 21 22 19 Blood Pressure 121/58 L 120/59 L 127/58 L Pulse Oximetry 100 98 05/09/18 18:30 05/09/18 18:45 05/09/18 19:00 Temperature Pulse Rate 92 H 92 H 92 H Respiratory Rate 25 H 24 16 Blood Pressure 117/56 L 115/56 L 126/60 Pulse Oximetry 99 99 95 05/09/18 19:15 05/09/18 19:30 05/09/18 19:45 Temperature Pulse Rate 92 H 94 H 96 H Respiratory Rate 18 18 19 Blood Pressure 131/63 135/55 L 128/61 Pulse Oximetry 95 96 96 05/09/18 20:00 05/09/18 20:15 05/09/18 20:18 Temperature 99.7 F H Pulse Rate 96 H 97 H 97 H Respiratory Rate 19 17 17 Blood Pressure 129/62 133/63 Pulse Oximetry 96 96 97 05/09/18 20:30 05/09/18 20:45 05/09/18 21:00 Temperature Pulse Rate 96 H 96 H 96 H Respiratory Rate 16 17 14 Blood Pressure 130/63 129/62 129/59 L Pulse Oximetry 97 95 96 05/09/18 21:15 05/09/18 21:30 05/09/18 21:45 Temperature Pulse Rate 96 H 97 H 97 H Respiratory Rate 17 16 16 Blood Pressure 132/60 131/60 131/60 Pulse Oximetry 96 96 97 05/09/18 22:00 05/09/18 22:15 05/09/18 22:30 Temperature Pulse Rate 96 H 96 H 96 H Respiratory Rate 16 16 15 Blood Pressure 133/60 127/61 131/63 Pulse Oximetry 96 97 97 05/09/18 22:45 05/09/18 23:00 05/09/18 23:15 Temperature Pulse Rate 96 H 97 H 96 H Respiratory Rate 15 15 16 Blood Pressure 129/58 L 133/60 130/63 Pulse Oximetry 97 97 97 05/09/18 23:26 05/09/18 23:30 05/09/18 23:45 Temperature Pulse Rate 96 H 85 87 Respiratory Rate 14 14 14 Blood Pressure 117/57 L 127/61 Pulse Oximetry 96 99 97 05/10/18 00:00 05/10/18 00:15 05/10/18 00:30 Temperature 99.2 F Pulse Rate 90 89 90 Respiratory Rate 14 14 15 Blood Pressure 125/56 L 122/60 112/52 L Pulse Oximetry 97 97 97 05/10/18 00:45 05/10/18 01:00 05/10/18 01:15 Temperature Pulse Rate 91 H 91 H 91 H Respiratory Rate 15 16 15 Blood Pressure 144/65 H 139/65 137/63 Pulse Oximetry 97 96 97 05/10/18 01:30 05/10/18 01:45 05/10/18 02:00 Temperature Pulse Rate 91 H 94 H 91 H Respiratory Rate 16 25 H 16 Blood Pressure 132/63 137/63 131/60 Pulse Oximetry 96 95 95 05/10/18 02:15 05/10/18 02:30 05/10/18 02:45 Temperature Pulse Rate 92 H 87 87 Respiratory Rate 15 15 14 Blood Pressure 128/62 117/50 L 119/57 L Pulse Oximetry 95 95 95 05/10/18 03:00 05/10/18 03:15 05/10/18 03:30 Temperature Pulse Rate 90 90 88 Respiratory Rate 15 14 14 Blood Pressure 131/60 132/62 128/61 Pulse Oximetry 96 96 96 05/10/18 03:45 05/10/18 04:00 05/10/18 04:15 Temperature 99.1 F Pulse Rate 89 83 84 Respiratory Rate 21 15 14 Blood Pressure 132/65 125/60 129/61 Pulse Oximetry 94 L 95 95 05/10/18 04:22 05/10/18 04:30 05/10/18 04:45 Temperature Pulse Rate 84 85 87 Respiratory Rate 14 14 15 Blood Pressure 132/63 134/63 Pulse Oximetry 95 95 95 05/10/18 05:00 05/10/18 05:15 05/10/18 05:30 Temperature Pulse Rate 86 90 90 Respiratory Rate 20 20 19 Blood Pressure 133/59 L 134/63 132/62 Pulse Oximetry 96 94 L 94 L 05/10/18 05:45 05/10/18 06:00 05/10/18 06:15 Temperature Pulse Rate 91 H 90 87 Respiratory Rate 18 24 20 Blood Pressure 133/63 126/55 L 99/49 L Pulse Oximetry 95 95 92 L 05/10/18 06:30 05/10/18 06:45 05/10/18 07:00 Temperature Pulse Rate 87 87 89 Respiratory Rate 21 21 28 H Blood Pressure 101/53 L 104/52 L 102/50 L Pulse Oximetry 93 L 97 94 L 05/10/18 07:15 05/10/18 07:30 05/10/18 07:45 Temperature Pulse Rate 86 87 88 Respiratory Rate 19 23 24 Blood Pressure 95/47 L 106/54 L 112/53 L Pulse Oximetry 94 L 93 L 93 L 05/10/18 08:00 05/10/18 08:15 05/10/18 08:20 Temperature 99.0 F Pulse Rate 90 90 Respiratory Rate 23 5 L 30 H Blood Pressure 106/53 L 96/47 L Pulse Oximetry 94 L 93 L 90 L Intake & Output 05/09/18 05/10/18 05/10/18 18:59 06:59 18:59 Intake Total 893 / 893 1213 / 1213 100 / 100 Output Total 800 / 800 600 / 600 Balance 93 / 93 613 / 613 100 / 100 Weight 68.8 kg Intake: IV 550 / 550 500 / 500 100 / 100 Cleviprex Inj 25 mg In 50 ml @ 250 / 250 400 / 400 100 / 100 1 MG/HR 2 mls/hr IV.CONT TITRATE PRN Rx#:[id number] KCl 10 mEq Premix Inj 10 meq In 100 / 100 100 ml @ 100 mls/hr IV.SIG ONCE ONE Rx#:[id number] KCl 20 mEq Premix Inj 20 meq In 100 / 100 100 ml @ 50 mls/hr IV.SIG Q2H PRN Rx#:[id number] Keppra 1000 mg/100 mL Premix 100 / 100 100 / 100 100 ML @ 400 mls/hr IV.SIG Q12H YUKO Rx#:[id number] Tube Feeding 143 / 143 593 / 593 Water Bolus Amount 200 / 200 120 / 120 Output: Urine 800 / 800 600 / 600 Other: # Incontinent Voids 3 Date of Last Bowel Movement 05/09/18 05/10/18 # Incontinent Bowel Movements 7 1 - Constitutional no acute distress, average body habitus, cooperative - Routine HEENT Exam Head: Present: normocephalic, atraumatic. Absent: Chacko's sign, facial swelling Eye: Present: EOMI, PERRL ENT: Present: external ear normal (on ventilator) - Routine Neck Exam Absent: tracheal deviation - Routine Respiratory Exam Present: patient mechanically ventilated. Absent: respiratory distress, stridor , wheezes - Routine Cardiovascular Exam Present: RRR. Absent: murmur, gallop, rubs - Routine Abdominal Exam Present: soft - Routine Skin Exam Present: intact, dry. Absent: cyanosis, jaundice - Routine Neurological Exam Present: alert. Absent: motor deficit - Detailed Neurological Exam: Coma Scale Eye Opening: Spontaneous - Routine Psychiatric Exam Present: normal affect, cooperative, unable to assess - Urinary Catheter Management Straight Cath placed during this visit: no Assessment and Plan - Assessment (1) Acute respiratory failure Code(s): J96.00 - Acute respiratory failure, unspecified whether with hypoxia or hypercapnia Status: Acute (2) Angioedema Code(s): T78.3XXA - Angioneurotic edema, initial encounter Status: Acute (3) Catatonia associated with another mental disorder Code(s): F06.1 - Catatonic disorder due to known physiological condition Status: Acute Plan: She has had some recent depression which is leading to this catatonia. She responds to the Ativan for 30-45 minutes and then drops back into her somnolent state. Medically she has had normal labs. her ABG was normal. her other labs including LATONYA rheumatoid factor RPR ESR were not indicative of any physical causes serious enough to lead to this mental state. Serious consideration is being given to transfer her to a hospital where she can receive ECT. In the meantime we will continue her on the dose of Ativan 2 mg IV every 6 hours were recommended by psychiatry initially. On discussion with Dr Acosta, her Psychiatrist, he believes her ativan should be decreased or possibly weaned down so will decrease today. ECT should be able to be arranged for next week per Dr Acosta. Per past discussion with Psychiatric case management, she needs a manager of data to sign off on the ECT. Will wait for the go ahead from Neurology prior to ECT (4) PRES (posterior reversible encephalopathy syndrome) Code(s): I67.83 - Posterior reversible encephalopathy syndrome Status: Acute Plan: There are multiple problems for this patient that are contributing to her mental state. She has been diagnosed with catatonia but Psychiatry today thinks this can be a severe "melancholic" depression. She was fine prior to this and then after her she deteriorated. It is unclear at what point the pres started. her BP has been so labile, that cannot have helped. now she is titrated on a drip so her BPs are stable (5) HTN (hypertension) Code(s): I10 - Essential (primary) hypertension Status: Acute Plan: Her blood pressures are very unpredictable and she failed po meds as her pressures could "roller coaster". Hypertensive crisis is not unusual with catatonia. Sometimes they can have autonomic instability where they can have tachycardia or fever. Fortunately she has not had either of those problems. [place] [facility] [place] her blood pressure can be monitored more frequently. Her catatonia has been so bad that she was not taking any p.o. so an NG tube has been placed. IV medications have done well as they are so quickly titratable will consult Nephrology as her BPs have been so difficult to control. she did not have known secondary HTN prior to this hospitalization (6) Seizures Code(s): R56.9 - Unspecified convulsions Status: Acute Plan: Her last seizure prior to this hospitalization was in 2007. Now she had a possible repeat seizures some days ago. She had not been taking p.o. and her Keppra level was low her EEG showed nonspecific encephalopathy. Right now she is on Keppra 1000 mg IV twice daily, she is scheduled for a lumbar puncture today, her Lovenox is being held hopefully she can get her keppra po or per NG soon (7) Hyperlipidemia Code(s): E78.5 - Hyperlipidemia, unspecified Status: Chronic Plan: We will continue on her regular medications. (8) Diabetes Code(s): E11.9 - Type 2 diabetes mellitus without complications Status: Chronic Plan: Based on her relatively poor p.o. intake we will not give regular doses of her diabetic medication can decide about giving insulin more regularly and scheduled if she eats better but will check her glucoses and give a low sliding scale for now. started NG feeds as she eats virtually nothing. (9) Diarrhea Code(s): R19.7 - Diarrhea, unspecified Status: Resolved (10) Clavicle fracture Code(s): S42.009A - Fracture of unspecified part of unspecified clavicle, initial encounter for closed fracture Status: Acute Plan: getting tylenol prn. she is healing over time. right sided fracture (11) Nutrition, metabolism, and development symptoms Code(s): R63.8 - Other symptoms and signs concerning food and fluid intake Status: Acute Plan: She is not eating well during this hospitalization. Hopefully she can get ECT soon which gets people better more quickly. Would not want to place a PEG tube as this is a temporary condition. She is altered. Intermittently she is more alert. - Assessment and Plan 68 yo female with dementia, HTN, DM admitted with: Catatonia Medical work-up has been negative except for PRES. Given that her altered mental status preceded her hypertension it is likely that the root cause of her altered mental state is catatonia. She does have a component of PRES by MRI but this is most likely due to hypertension caused by catatonia rather than primary hypertension leading to encephalopathy, especially since her mental status changes preceded the MRI findings that suggested PRES. She had mental status changes at a clinic appointment prior to her subsequent high BPs CBC and CK within normal limits; no signs of NMS ABG essentially normal Ammonia very slightly elevated not the source of her mental status decline LATONYA screen positive at low level RF negative RPR negative ESR normal * stopped Lexapro and Seroquel, per discussion with Psychiatry yesterday and her up and down BPs and fever, they did not want this pt to develop NMS or serotonin syndrome * Ativan stopped due to hypotension, respiratory failure from angioedema but has been on benzos for her sedation on the vent * Psychiatry consulted, appreciate assistance * Only treatment likely to improve her depression/catatonia is ECT - ongoing discussion to make arrangements to transfer her to a facility that performs ECT. Psychiatry prior to today was in favor of ECT as soon as possible. However , fortunately, per Psychiatry's assessment today she is improving and ECT can be placed on hold. * CT abdomen/pelvis showed questionable pancreatic mass, ruled out by MRI * Normal CA-19/9, CEA and CA-125 * Manage hypertension as noted below Acute Respiratory Failure due to angioedema Now intubated, respiratory status improving, working toward extubation hopefully today Spiked fever to 101, CBC with increasing leukocytosis. no specific signs of infection on cultures or CXR. Fevers improved today * CCM consulted, appreciate assistance * Intubated 05/03 * Completed treatment with H1/H2 anayeli and steroid * Duonebs Q4H * Hopeful for extubation today * Tongue not swollen, questionable benefit from repeat steroid dose * Continue to monitor vitals and CBC; if current trend continues will cover empirically for VAP. PRES MRI findings suggestive of PRES * Neurology following, appreciate assistance * had improved neurologically as of 05/06 * Checked paraneoplastic labs * Control BP as below * getting MRI today. clinically she is waking up more Hypertension BP still intermittently elevated likely related to catatonia Difficulty taking PO meds during this hospitalization due to fluctuating mental status * Due to PRES needs tighter BP control per neurology: goal SBP 110-120 * Continue nifedipine drip titrated to target SBP < 120 * IV Hydralazine and labetalol as needed for BP control * Transitioning to PO meds * Hydralazine 25 mg TID * Coreg 3.125 mg BID * Isosorbide dinitrate 5 mg TIDAC * Amlodipine 10 mg daily (increased from 5 mg) still labile BPs with need to adjust her drip daily up and down. if this is from her catatonia then hope the BPs stabilize along with her mental condition Seizure Disorder Now with possible repeat seizure vs (more likely) catalepsy from catatonia EEG with nonspecific encephalopathy MRI/MRA unremarkable except for ?PRES as noted LP performed 05/02/18 - chemistries / cultures normal so far * Neurology on board, appreciate assistance * Continue Keppra to 1000 mg IV BID, once off vent hope to change to po * Control BP as part of PRES management * Treat catatonia as above Diabetes mellitus BG at hospital goal now * Check sugar Q6H now that she is on continuous tube feedings * Holding metformin for now * Low dose SSI * once off vent, hope she eats better Hyperlipidemia * Continue home atorvastatin Diarrhea C difficile negative * Most likely normal due to tube feeds and patient being NPO before tube feeds were initiated * Continue to monitor * improving Right [id number] amputation PT/OT evaluate and treat once more able to cooperate Clavicle Fracture, right RUE neurovascularly intact, no deformity noted * Monitor clinically * WBAT RUE Fluids: Tube feeds and drips only, no running IVF Diet: Tube feed only at the moment * Consulted squeegee tender, appreciate recs * Glucerna 1.5 @ 60 mL/hr * ST can reevaluate once extubated for likely resumption of her diet GI: Famotidine Docusate serum/senna 1 tablet twice daily for bowel regimen DVT: Heparin BID ICU electrolyte replacement protocol (2) Angioedema Qualifiers: Encounter type: initial encounter Qualified Code(s): T78.3XXA - Angioneurotic edema, initial encounter (5) HTN (hypertension) Qualifiers: Hypertension type: other secondary hypertension Qualified Code(s): I15.8 - Other secondary hypertension (7) Hyperlipidemia Qualifiers: Hyperlipidemia type: pure hypercholesterolemia Qualified Code(s): E78.00 - Pure hypercholesterolemia, unspecified; E78.0 - Pure hypercholesterolemia (8) Diabetes Qualifiers: Diabetes mellitus type: type 2 Diabetes mellitus skilled nursing insulin use: unspecified skilled nursing insulin use status Diabetes mellitus complication status : with circulatory complication Diabetes mellitus complication detail: with peripheral angiopathy without gangrene Qualified Code(s): E11.51 - Type 2 diabetes mellitus with diabetic peripheral angiopathy without gangrene (10) Clavicle fracture Qualifiers: Encounter type: subsequent encounter Fracture type: closed Laterality: right
--- NOTE | 2018-05-10 09:48 | P.PNPSY ---
Subjective Remarks: Patient was seen today for psychiatric reevaluation. Patient is still intubated , but quite alert. Communication limited, but patient able to move her head and say yes and no. Patient reports feeling better and to be in a good mood. There is full fascial expression and full range of motion in her face. Patient reports that she feels better, denies pain, denies distress. The patient denies suicidal and homicidal ideation, she denies visual and auditory hallucinations. Cognitive assessment is limited, but she does know that she is in the hospital. Patient also have full range of motion in her leg, she is restrained in upper extremities, but she cannot squeeze my hand and move her fingers freely. No agitation or aggressive behavior reported in the last 12 hours. Her vital signs are quite stable. Mental Status Examination Appearance: Appropriate Consciousness: Alert Orientation: x4, Place Motor Activity: Other (Patient is bedridden and currently intubated) Speech: Other (Intubated) Fund of Knowledge: Adequate (Unknown) Attention and Concentration: Adequate (At times) Mood: Good, Anxious Affect: Appropriate Thought Process & Associations: Other (Patient intubated) Thought Content: Appropriate Delusion Type: None Suicidal Ideation: No Suicidal Plan: No Suicidal Intention: No Homicidal Ideation: No Homicidal Plan: No Homicidal Intention: No Insight: Fair Judgment: Impulsive Assessment and Plan - Assessment (1) Catatonia associated with another mental disorder Code(s): F06.1 - Catatonic disorder due to known physiological condition Status: Acute - Plan Plan: On psychiatric evaluation limited due to intubation. Patient restrained in upper extremities, however, full facial expression, full range of emotions, full range of movement in her lower extremities and her hands present. Patient is able to follow commands, to communicate by moving her head. Reports to be in a good mood, is oriented in place, denies suicidal and homicidal ideation, denies visual and auditory hallucinations. The patient even is mild to 1 of my comments. Vital signs are quite stable, which suggest the patient is no catatonic at the moment. Will be evaluated once completely taper off midazolam to reassess the need of restarting Ativan. Will sig out to family consumer science teacher psychiatrist, Dr. Nobles. Justification for Continued Inpatient Stay: At this moment no indication of admission
--- NOTE | 2018-05-10 10:06 | MR ---
EXAM DATE: 05/10/2018 9:51 AM EST AGE/SEX: 68 years / Female INDICATIONS: Encephalitis. CLINICAL DATA: This is the patient's initial encounter. Patient reports that signs and symptoms have been present for 1 day and indicates a pain score of 0/10. MEDICAL/SURGICAL HISTORY: Non-responsive. . Above the knee amputation. COMPARISON: [facility] [place], MR HEAD W & W/O CONTRAST, 04/21/2018. . TECHNIQUE: Multiplanar, multisequence examination of the brain was performed without contrast. FINDINGS: There is no evidence for intracranial hemorrhage, mass effect, mass lesions, edema, or extra-axial fl uid collections. The ventricles are prominent probably due to atrophic changes. There are no signs of acute infarction for technique. The diffusion portion is unremarkable. There is mild area of livier ght signal on diffusion portion involving high convexity bilateral posterior parieto-occipital juncti on artifactually created. The diffusion capacity appears intact. There is opacification of the right mastoid air cells chronic in nature. Significant degree of brain atrophy is seen. Significant periven tricular white matter changes are seen nonspecific mostly consistent with chronic small vessel ischem ic changes. Previously seen areas of vasogenic edema on the MRI dated 04/26/2018 and the 05/01/2018 i n bilateral parieto-occipital, and temporal lobes have significantly improved. Extensive periventricu lar white matter bright signal remains present in the appearance of chronic small vessel ischemic magdalena nges. CONCLUSION: There is improvement in vasogenic edema within bilateral parietal temporal and occipital lobes since the prior MR examinations from 04/26/2018 at 05/01/2018 with significant periventricular white matter process remaining has the appearance of chronic small vessel ischemic changes. Electronically signed by: Farideh Anand MD Board Certified Radiologist 05/10/2018 10:05 AM EST
--- NOTE | 2018-05-10 13:02 | P.PNCC ---
Subjective Subjective Remarks/Hospital Course: This is a 68-year-old female. Admission 04/30/2018. Date of consultation 05/03/2018. Past medical history includes non-Hodgkin's lymphoma in remission since 2008, history of CVA, underlying dementia disorder NOS, hypertension, hyperlipidemia, peripheral vascular disease with known right carotid stenosis, diabetes mellitus, gout, and a known right clavicle fracture. She has a right [id number] amputation from peripheral vascular disease. Patient presents to [facility] 04/30 with recent admissions for catatonia state. Patient was treated under psychiatry to be medically cleared by family medicine practice with little improvement in her symptomatology. She presented here with elevated blood pressure and altered mental status. She received clonidine and hydralazine the results and was started on nicardipine drip and transferred to the intensive care unit. She is also on lisinopril which was discontinued recently. Her nicardipine drip is currently off. This morning, was notified by the RN patient had a swollen tongue and has had increasing oxygen requirements. Patient required emergent intubation with glide scope without complication. Most likely is introduced secondary to JACE inhibitor. Patient is currently on famotidine, diphenhydramine and received 1 dose of steroids. 05/04: Currently resting in bed in no acute distress. Tongue remains swollen. Replace potassium. Restarted on nicardipine drip overnight due to hypertension. 05/05: Remains on nicardipine drip at 5 mg an hour. Tongue remains less swollen today. Will diuresis with bumetanide x1. Does not appear to be any distress. Propofol is currently 50 sunita grams per kilogram per minute. Will lessen sedation today. 05/06: Remains on nicardipine drip at 5 mg an hour. Tongue mitral swollen. Weaning parameters borderline. Emesis during spontaneous breathing trials noted. 05/07/18: Afebrile. Remains in adequate drip at 15 mg an hour.. Will switch to clevidipine for less volume. Neurology requests discontinuation of propofol. Adding hydralazine, isosorbide and carvedilol and attempt to wean off for goal systolic blood pressure less than 110 05/08: Currently wean off midazolam drip. Will attempt CPAP trial again today. She does have left-sided pleural effusion. Will consider DC prior to attempt extubation. Tube feeds at goal. 05/09: Failed CPAP. No cuff leak on spontaneous breathing trial early. Start on dexamethasone. FiO2 down to 35%. Diuresed overnight. Subjective 05/10: Awake and more interactive. MRI showed much. Vasogenic edema. We will try CPAP trial right now and attempt x-ray. No cuff leak. On 05/09. She is received 1 day of l Decadron Objective Vital Signs / I&O: Vital Signs 05/09/18 15:13 05/09/18 16:00 05/09/18 17:45 Temperature 99.5 F Pulse Rate 92 H 94 H 94 H Respiratory Rate 18 16 21 Blood Pressure 124/60 121/58 L Pulse Oximetry 98 98 100 05/09/18 18:00 05/09/18 18:15 05/09/18 18:30 Temperature Pulse Rate 93 H 96 H 92 H Respiratory Rate 22 19 25 H Blood Pressure 120/59 L 127/58 L 117/56 L Pulse Oximetry 98 99 05/09/18 18:45 05/09/18 19:00 05/09/18 19:15 Temperature Pulse Rate 92 H 92 H 92 H Respiratory Rate 24 16 18 Blood Pressure 115/56 L 126/60 131/63 Pulse Oximetry 99 95 95 05/09/18 19:30 05/09/18 19:45 05/09/18 20:00 Temperature 99.7 F H Pulse Rate 94 H 96 H 96 H Respiratory Rate 18 19 19 Blood Pressure 135/55 L 128/61 129/62 Pulse Oximetry 96 96 96 05/09/18 20:15 05/09/18 20:18 05/09/18 20:30 Temperature Pulse Rate 97 H 97 H 96 H Respiratory Rate 17 17 16 Blood Pressure 133/63 130/63 Pulse Oximetry 96 97 97 05/09/18 20:45 05/09/18 21:00 05/09/18 21:15 Temperature Pulse Rate 96 H 96 H 96 H Respiratory Rate 17 14 17 Blood Pressure 129/62 129/59 L 132/60 Pulse Oximetry 95 96 96 05/09/18 21:30 05/09/18 21:45 05/09/18 22:00 Temperature Pulse Rate 97 H 97 H 96 H Respiratory Rate 16 16 16 Blood Pressure 131/60 131/60 133/60 Pulse Oximetry 96 97 96 05/09/18 22:15 05/09/18 22:30 05/09/18 22:45 Temperature Pulse Rate 96 H 96 H 96 H Respiratory Rate 16 15 15 Blood Pressure 127/61 131/63 129/58 L Pulse Oximetry 97 97 97 05/09/18 23:00 05/09/18 23:15 05/09/18 23:26 Temperature Pulse Rate 97 H 96 H 96 H Respiratory Rate 15 16 14 Blood Pressure 133/60 130/63 Pulse Oximetry 97 97 96 05/09/18 23:30 05/09/18 23:45 05/10/18 00:00 Temperature 99.2 F Pulse Rate 85 87 90 Respiratory Rate 14 14 14 Blood Pressure 117/57 L 127/61 125/56 L Pulse Oximetry 99 97 97 05/10/18 00:15 05/10/18 00:30 05/10/18 00:45 Temperature Pulse Rate 89 90 91 H Respiratory Rate 14 15 15 Blood Pressure 122/60 112/52 L 144/65 H Pulse Oximetry 97 97 97 05/10/18 01:00 05/10/18 01:15 05/10/18 01:30 Temperature Pulse Rate 91 H 91 H 91 H Respiratory Rate 16 15 16 Blood Pressure 139/65 137/63 132/63 Pulse Oximetry 96 97 96 05/10/18 01:45 05/10/18 02:00 05/10/18 02:15 Temperature Pulse Rate 94 H 91 H 92 H Respiratory Rate 25 H 16 15 Blood Pressure 137/63 131/60 128/62 Pulse Oximetry 95 95 95 05/10/18 02:30 05/10/18 02:45 05/10/18 03:00 Temperature Pulse Rate 87 87 90 Respiratory Rate 15 14 15 Blood Pressure 117/50 L 119/57 L 131/60 Pulse Oximetry 95 95 96 05/10/18 03:15 05/10/18 03:30 05/10/18 03:45 Temperature Pulse Rate 90 88 89 Respiratory Rate 14 14 21 Blood Pressure 132/62 128/61 132/65 Pulse Oximetry 96 96 94 L 05/10/18 04:00 05/10/18 04:15 05/10/18 04:22 Temperature 99.1 F Pulse Rate 83 84 84 Respiratory Rate 15 14 14 Blood Pressure 125/60 129/61 Pulse Oximetry 95 95 95 05/10/18 04:30 05/10/18 04:45 05/10/18 05:00 Temperature Pulse Rate 85 87 86 Respiratory Rate 14 15 20 Blood Pressure 132/63 134/63 133/59 L Pulse Oximetry 95 95 96 05/10/18 05:15 05/10/18 05:30 05/10/18 05:45 Temperature Pulse Rate 90 90 91 H Respiratory Rate 20 19 18 Blood Pressure 134/63 132/62 133/63 Pulse Oximetry 94 L 94 L 95 05/10/18 06:00 05/10/18 06:15 05/10/18 06:30 Temperature Pulse Rate 90 87 87 Respiratory Rate 24 20 21 Blood Pressure 126/55 L 99/49 L 101/53 L Pulse Oximetry 95 92 L 93 L 05/10/18 06:45 05/10/18 07:00 05/10/18 07:15 Temperature Pulse Rate 87 89 86 Respiratory Rate 21 28 H 19 Blood Pressure 104/52 L 102/50 L 95/47 L Pulse Oximetry 97 94 L 94 L 05/10/18 07:30 05/10/18 07:45 05/10/18 08:00 Temperature 99.0 F Pulse Rate 87 88 90 Respiratory Rate 23 24 23 Blood Pressure 106/54 L 112/53 L 106/53 L Pulse Oximetry 93 L 93 L 94 L 05/10/18 08:15 05/10/18 08:20 05/10/18 08:30 Temperature Pulse Rate 90 88 Respiratory Rate 5 L 30 H 11 L Blood Pressure 96/47 L 84/46 L Pulse Oximetry 93 L 90 L 95 05/10/18 08:44 05/10/18 08:45 05/10/18 09:00 Temperature Pulse Rate 91 H 91 H 92 H Respiratory Rate 23 26 H 17 Blood Pressure 95/51 L 101/51 L 103/53 L Pulse Oximetry 92 L 93 L 92 L 05/10/18 10:00 05/10/18 10:07 05/10/18 10:10 Temperature Pulse Rate 88 87 85 Respiratory Rate Blood Pressure 123/60 120/57 L Pulse Oximetry 95 95 94 L 05/10/18 10:20 05/10/18 10:30 05/10/18 10:40 Temperature Pulse Rate 83 81 81 Respiratory Rate Blood Pressure 111/56 L 112/59 L 113/55 L Pulse Oximetry 94 L 94 L 93 L 05/10/18 10:50 05/10/18 11:00 05/10/18 11:10 Temperature Pulse Rate 81 84 82 Respiratory Rate 26 H Blood Pressure 118/58 L 123/62 121/58 L Pulse Oximetry 93 L 93 L 93 L 05/10/18 11:20 05/10/18 11:23 05/10/18 11:30 Temperature Pulse Rate 87 89 Respiratory Rate 24 Blood Pressure 127/66 129/64 Pulse Oximetry 92 L 93 L 05/10/18 11:40 05/10/18 11:41 05/10/18 11:50 Temperature Pulse Rate 87 87 Respiratory Rate 26 H Blood Pressure 128/65 123/58 L Pulse Oximetry 91 L 91 L 93 L 05/10/18 12:00 Temperature 99.0 F Pulse Rate 87 Respiratory Rate Blood Pressure 119/59 L Pulse Oximetry 92 L Intake & Output 05/09/18 05/10/18 05/10/18 18:59 06:59 18:59 Intake Total 893 / 893 1213 / 1213 150 / 150 Output Total 800 / 800 600 / 600 Balance 93 / 93 613 / 613 150 / 150 Weight 68.8 kg Intake: IV 550 / 550 500 / 500 150 / 150 Cleviprex Inj 25 mg In 50 ml @ 250 / 250 400 / 400 150 / 150 1 MG/HR 2 mls/hr IV.CONT TITRATE PRN Rx#:[id number] KCl 10 mEq Premix Inj 10 meq In 100 / 100 100 ml @ 100 mls/hr IV.SIG ONCE ONE Rx#:[id number] KCl 20 mEq Premix Inj 20 meq In 100 / 100 100 ml @ 50 mls/hr IV.SIG Q2H PRN Rx#:[id number] Keppra 1000 mg/100 mL Premix 100 / 100 100 / 100 100 ML @ 400 mls/hr IV.SIG Q12H YUKO Rx#:[id number] Tube Feeding 143 / 143 593 / 593 Water Bolus Amount 200 / 200 120 / 120 Output: Urine 800 / 800 600 / 600 Other: # Incontinent Voids 3 Date of Last Bowel Movement 05/09/18 05/10/18 # Incontinent Bowel Movements 7 1 Result Diagrams: 05/10/18 04:58 05/10/18 04:58 Other Results: Microbiology 05/09/18 14:40 Sputum - Endotracheal Gram Stain - Final 05/09/18 14:40 Sputum - Endotracheal Sputum Culture - Preliminary Heavy growth normal respiratory maritza at 24 hours 05/09/18 11:36 Blood - Peripheral Aerobic Blood Culture - Preliminary No growth in 1 day 05/09/18 11:36 Blood - Peripheral Anaerobic Blood Culture - Preliminary No growth in 1 day 05/09/18 11:30 Blood - Peripheral Aerobic Blood Culture - Preliminary No growth in 1 day 05/09/18 11:30 Blood - Peripheral Anaerobic Blood Culture - Preliminary No growth in 1 day 05/02/18 11:30 Cerebral Spinal Fluid - Lumbar Puncture Fungal Smear - Final No fungal elements seen 05/02/18 11:30 Cerebral Spinal Fluid - Lumbar Puncture Fungal Culture - Preliminary No growth in 1 week 05/02/18 11:30 Cerebral Spinal Fluid - Lumbar Puncture Acid Fast Bacilli Smear - Final No acid fast bacilli seen 05/02/18 11:30 Cerebral Spinal Fluid - Lumbar Puncture Mycobacterial Culture - Preliminary No growth in 1 week 05/03/18 08:00 Sputum - Endotracheal Gram Stain - Final 05/03/18 08:00 Sputum - Endotracheal Sputum Culture - Final Heavy growth normal respiratory maritza 05/02/18 11:30 Lumbar Puncture Gram Stain - Final 05/02/18 11:30 Lumbar Puncture CSF Culture - Final No growth in 72 hours Imaging: Carotid Doppler Study 05/01/18 00:00 CONCLUSION: 1. Elevation of the peak systolic velocity of the left internal carotid artery suggesting 50-69% stenosis although the ICA/CCA ratio on the left suggests less than 50% stenosis. CTA of the carotids would be helpful to resolve these discordant findings. There is also elevation of the peak systolic velocity of the left external carotid artery in the 50-69% stenosis range. 2. Less than 50% stenosis involving the right internal carotid artery. 3. Moderate atherosclerotic plaque formation within the carotid bulbs and proximal internal carotid arteries. Head MRI 05/01/18 19:26 There is vasogenic edema seen involving the posterior aspects of the parietal lobes as well as the occipital lobes bilaterally. This is similar to the prior examination. Periventricular high FLAIR signal abnormality also noted involving both cerebral hemispheres but most pronounced within the parietal lobes. This is unchanged. A small lacunar infarction involving the left abraham radiata. No hemorrhage. No acute infarction. Normal flow voids within the major intracranial vessels. Ventricles are normal in size. Orbital structures are normal. No abnormal enhancement following gadolinium. Mucosal thickening without air-fluid levels involving anterior ethmoid air cells on the right. Remaining paranasal sinuses are clear. Fluid signal seen within the mastoid air cells bilaterally but more pronounced on the left. CONCLUSION: 1. Study degraded by motion artifact. 2. Vasogenic edema involving the parietal and occipital lobes bilaterally is stable. Although not specific for this could relate to posterior reversible encephalopathy syndrome (PRES). 3. Atrophy. 4. Chronic small vessel ischemic change. Lumbar Puncture Fluoroscopy 05/02/18 00:00 CONCLUSION: 1. Uncomplicated fluoroscopically guided lumbar puncture. Abdomen/Pelvis CT 05/03/18 00:00 CONCLUSION: 1. Questionable mass within the body of the pancreas measuring 1.7 x 2.6 cm. MRI of the abdomen with contrast may be helpful for further characterization of this questionable mass if clinically indicated. 2. Gallbladder wall is mildly thickened. If there is clinical concern for acute cholecystitis, a hepatobiliary scan may be helpful to confirm cystic duct obstruction. 3. Liver is enlarged and appears somewhat nodular in contour raising the possibility of cirrhosis. No focal mass is noted. 4. Small bilateral pleural effusions with adjacent alveolar consolidations are noted. 5. Tiny pericardial effusion. 6. Minimal ascites. 7. 11 mm calcified fibroid within the uterus. 8. Degenerative changes and scoliosis of the thoracolumbar spine. Chest CT 05/03/18 00:00 CONCLUSION: 1. Small bilateral pleural effusions. 2. Posterior bibasilar alveolar consolidations consistent with compressive atelectasis and/or pneumonia. Clinical correlation is recommended. 3. Tiny pericardial effusion. 4. Cardiomegaly and coronary artery calcifications. 5. No pulmonary nodule, mass or lymphadenopathy. 6. Scoliosis and degenerative changes involving the thoracic spine. Chest X-Ray 05/03/18 07:08 CONCLUSION: 1. Improved position of the endotracheal tube which is now 3 cm above the tim. 2. Scattered bibasilar atelectasis. 3. Degenerative changes and scoliosis of the thoracic spine. Chest X-Ray 05/03/18 07:09 CONCLUSION: 1. Endotracheal tube is low in position at the level of the tim and directed towards the right mainstem bronchus. This should be pulled back 3 cm for more optimal positioning. 2. Scattered atelectatic changes bilaterally. 3. Degenerative changes and scoliosis of the thoracic spine. Abdomen MRI 05/04/18 00:00 CONCLUSION: 1. No pancreatic mass identified on MRI. 2. Bilateral pleural effusions. Moderate anasarca. Mild ascites. Chest X-Ray 05/05/18 06:00 CONCLUSION: Worsening mild consolidation and small pleural effusions at each base. New nasogastric tube coursing into the stomach, tip not included on the study. Endotracheal tube tip is about 2 cm above the tim. Chest X-Ray 05/06/18 06:00 CONCLUSION: Bibasilar areas of consolidation or atelectasis being worse on the left. Some degree of a left effusion can be considered. Chest X-Ray 05/08/18 06:00 CONCLUSION: Hazy density bilaterally which may be secondary to effusions layering posteriorly. Some degree of consolidation or atelectasis at the bases can also be considered. Chest X-Ray 05/09/18 11:12 CONCLUSION: Stable chest with bibasilar airspace disease Stable position of endotracheal and nasogastric tubes. Head MRI 05/10/18 00:00 CONCLUSION: There is improvement in vasogenic edema within bilateral parietal temporal and occipital lobes since the prior MR examinations from 04/26/2018 at 05/01/2018 with significant periventricular white matter process remaining has the appearance of chronic small vessel ischemic changes. Objective Remarks: GENERAL: This is a 68-year-old female currently orotracheally intubated in no acute distress SKIN: Warm and dry. HEAD: Atraumatic. Normocephalic. EYES: Pupils equal and round around 3 mm bilaterally and reactive. No scleral icterus. No injection or drainage. ENT: No nasal bleeding or discharge. Mucous membranes pink and moist. Tongue less edematous and swollen NECK: Trachea midline. No JVD. CARDIOVASCULAR: Regular rate and rhythm. S1, S2. No S4. RESPIRATORY: No accessory muscle use. Patient bases with few crackles. GASTROINTESTINAL: Abdomen soft, non-tender, obese. Hepatic and splenic margins not palpable. MUSCULOSKELETAL: Extremities trace bilateral lower extremity edema. No obvious deformities. NEUROLOGICAL: Patient arousable moving all 4 extremities spontaneously to command. More interactive today. Positive cough and gag. Positive corneal reflex. Withdraws to pain. Assessment and Plan - Assessment and Plan Plan: Neuro/Psych: Acute encephalopathy Possible PRES History of CVA Seizure disorder NOS [place] MRI brain revealed vasogenic edema in the bilateral posterior occipital lobes. Possible differential includes PRES Repeat MRI brain once this revealed much improvement in vasogenic edema. Stable small vessel ischemic changes. Evaluate Dr. Mehta/neurology. Continue aspirin 81 mg daily. Goal blood pressure between 110 120 systolic. Lumbar puncture 05/02 unremarkable Remains on levetiracetam 1000 mg twice daily for seizures Depression medication escitalopram 20 mg daily Hold gabapentin 60o mg twice daily Family medicine has patient scheduled lorazepam 1 mg every 6 hours Currently off midazolam drip for sedation while intubated Goal of RA SS -0 Daily sedation vacation persistent CV: Hypertensive emergency Hyper lipedema Peripheral vascular disease Noted 2D echocardiogram 05/01 revealed EF around 55-60 with no regional wall motion abnormalities with small pericardial effusion. Goal keep systolic blood pressure around 110-120 per neurology's recommendations Previously on hydralazine, clonidine scheduled. Continue amlodipine 10 mg daily, carvedilol 25 mg twice daily, hydralazine 100 3 times daily and isosorbide dinitrate 10 mg 3 times daily As needed hydralazine, Nitropaste and labetalol Switch nicardipine drip to clevidipine drip maintain systolic blood pressure is 110. Continue atorvastatin 20 mg daily Carotid Dopplers revealed left stenosis 50-69%. Right less than 50%. Bumetanide 2 mg IV x1 today. Resp: Acute respiratory failure secondary angioedema [facility] 14/500/1.05/11/34 Ventilator bundle Albuterol/ipratropium aerosols every 4 hours with albuterol every 2 as needed dyspnea No spontaneous breathing trials until angioedema resolving Follow-up on post intubation chest x-ray and ABG Currently on scheduled diphenhydramine 50 mg IV every 6 hours stop date 05/04, famotidine 20 mg IV twice daily and received 1 dose of methylprednisolone succinate 125 mg x1 No cuff leak. Decadron 4 mg q. 8 hours x 2 days GI: Continue tube feeding with Glucerna 1.5 goal 45 cc an hour. Noted CT abdomen/pelvis revealed pancreatic mass. The abdominal MRI no pancreatic mass. Noted normal CA 19/9, CEA and CA 125 NG tube to low intermittent wall suction currently Famotidine for GI prophylaxis Docusate serum/senna 1 tablet twice daily for bowel regimen : Currently with [place] catheter. Endo: Diabetes mellitus type 2 Gout Sliding scale insulin with aspart insulin every 6 hours low regimen Accu-Cheks to maintain euglycemia TSH 0.5-4 Holding metformin and glimepiride. Renal: Creatinine currently within normal limits Monitor urine output Acute I's and O's Heme: Normocytic anemia Leukocytosis Monitor CBC daily. Follow trends. No indication for transfusion of blood products at this time ID: Check sputum no growth to date Monitor for signs of hematology infection FEN: Replace electrolytes as clinically indicated per ICU electrolyte protocol Discontinue all IV fluids MSK: Right [id number] amputation PT/OT evaluate and treat Access -Utilize peripheral IV. Central line if indicated Prophylaxis -GI -famotidine -DVT -SCD/heparin subcu Level 3 follow-up Code Status: Full code
[2018-05-10 19:51] LABS: Neuronal Nuclear Ab (HU) Titer ND titer (<1:40); Neuronal Nuclear Ab (RI) Titer ND titer (<1:40); Neuronal Nuclear(HU)Ab Screen NEGATIVE (NEGATIVE); Neuronal Nuclear(RI)Ab Screen NEGATIVE (NEGATIVE); Purkinje Ab Titer ND titer (<1:40); RI Ab Western Blot ND (NEGATIVE); Yo Ab Western Blot Confimation ND (NEGATIVE)
--- NOTE | 2018-05-10 21:10 | P.PNNP ---
Subjective Interval history: Patient seen in the afternoon, remain on the vent., awake, not following any commands. Physical Exam Vital signs: Vital Signs 05/09/18 21:15 05/09/18 21:30 05/09/18 21:45 Temperature Pulse Rate 96 H 97 H 97 H Respiratory Rate 17 16 16 Blood Pressure 132/60 131/60 131/60 Pulse Oximetry 96 96 97 05/09/18 22:00 05/09/18 22:15 05/09/18 22:30 Temperature Pulse Rate 96 H 96 H 96 H Respiratory Rate 16 16 15 Blood Pressure 133/60 127/61 131/63 Pulse Oximetry 96 97 97 05/09/18 22:45 05/09/18 23:00 05/09/18 23:15 Temperature Pulse Rate 96 H 97 H 96 H Respiratory Rate 15 15 16 Blood Pressure 129/58 L 133/60 130/63 Pulse Oximetry 97 97 97 05/09/18 23:26 05/09/18 23:30 05/09/18 23:45 Temperature Pulse Rate 96 H 85 87 Respiratory Rate 14 14 14 Blood Pressure 117/57 L 127/61 Pulse Oximetry 96 99 97 05/10/18 00:00 05/10/18 00:15 05/10/18 00:30 Temperature 99.2 F Pulse Rate 90 89 90 Respiratory Rate 14 14 15 Blood Pressure 125/56 L 122/60 112/52 L Pulse Oximetry 97 97 97 05/10/18 00:45 05/10/18 01:00 05/10/18 01:15 Temperature Pulse Rate 91 H 91 H 91 H Respiratory Rate 15 16 15 Blood Pressure 144/65 H 139/65 137/63 Pulse Oximetry 97 96 97 05/10/18 01:30 05/10/18 01:45 05/10/18 02:00 Temperature Pulse Rate 91 H 94 H 91 H Respiratory Rate 16 25 H 16 Blood Pressure 132/63 137/63 131/60 Pulse Oximetry 96 95 95 05/10/18 02:15 05/10/18 02:30 05/10/18 02:45 Temperature Pulse Rate 92 H 87 87 Respiratory Rate 15 15 14 Blood Pressure 128/62 117/50 L 119/57 L Pulse Oximetry 95 95 95 05/10/18 03:00 05/10/18 03:15 05/10/18 03:30 Temperature Pulse Rate 90 90 88 Respiratory Rate 15 14 14 Blood Pressure 131/60 132/62 128/61 Pulse Oximetry 96 96 96 05/10/18 03:45 05/10/18 04:00 05/10/18 04:15 Temperature 99.1 F Pulse Rate 89 83 84 Respiratory Rate 21 15 14 Blood Pressure 132/65 125/60 129/61 Pulse Oximetry 94 L 95 95 05/10/18 04:22 05/10/18 04:30 05/10/18 04:45 Temperature Pulse Rate 84 85 87 Respiratory Rate 14 14 15 Blood Pressure 132/63 134/63 Pulse Oximetry 95 95 95 05/10/18 05:00 05/10/18 05:15 05/10/18 05:30 Temperature Pulse Rate 86 90 90 Respiratory Rate 20 20 19 Blood Pressure 133/59 L 134/63 132/62 Pulse Oximetry 96 94 L 94 L 05/10/18 05:45 05/10/18 06:00 05/10/18 06:15 Temperature Pulse Rate 91 H 90 87 Respiratory Rate 18 24 20 Blood Pressure 133/63 126/55 L 99/49 L Pulse Oximetry 95 95 92 L 05/10/18 06:30 05/10/18 06:45 05/10/18 07:00 Temperature Pulse Rate 87 87 89 Respiratory Rate 21 21 28 H Blood Pressure 101/53 L 104/52 L 102/50 L Pulse Oximetry 93 L 97 94 L 05/10/18 07:15 05/10/18 07:30 05/10/18 07:45 Temperature Pulse Rate 86 87 88 Respiratory Rate 19 23 24 Blood Pressure 95/47 L 106/54 L 112/53 L Pulse Oximetry 94 L 93 L 93 L 05/10/18 08:00 05/10/18 08:15 05/10/18 08:20 Temperature 99.0 F Pulse Rate 90 90 Respiratory Rate 23 5 L 30 H Blood Pressure 106/53 L 96/47 L Pulse Oximetry 94 L 93 L 90 L 05/10/18 08:30 05/10/18 08:44 05/10/18 08:45 Temperature Pulse Rate 88 91 H 91 H Respiratory Rate 11 L 23 26 H Blood Pressure 84/46 L 95/51 L 101/51 L Pulse Oximetry 95 92 L 93 L 05/10/18 09:00 05/10/18 10:00 05/10/18 10:07 Temperature Pulse Rate 92 H 88 87 Respiratory Rate 17 Blood Pressure 103/53 L 123/60 Pulse Oximetry 92 L 95 95 05/10/18 10:10 05/10/18 10:20 05/10/18 10:30 Temperature Pulse Rate 85 83 81 Respiratory Rate Blood Pressure 120/57 L 111/56 L 112/59 L Pulse Oximetry 94 L 94 L 94 L 05/10/18 10:40 05/10/18 10:50 05/10/18 11:00 Temperature Pulse Rate 81 81 84 Respiratory Rate 26 H Blood Pressure 113/55 L 118/58 L 123/62 Pulse Oximetry 93 L 93 L 93 L 05/10/18 11:10 05/10/18 11:20 05/10/18 11:23 Temperature Pulse Rate 82 87 Respiratory Rate 24 Blood Pressure 121/58 L 127/66 Pulse Oximetry 93 L 92 L 05/10/18 11:30 05/10/18 11:40 05/10/18 11:41 Temperature Pulse Rate 89 87 Respiratory Rate 26 H Blood Pressure 129/64 128/65 Pulse Oximetry 93 L 91 L 91 L 05/10/18 11:50 05/10/18 12:00 05/10/18 12:30 Temperature 99.0 F Pulse Rate 87 87 84 Respiratory Rate Blood Pressure 123/58 L 119/59 L 121/58 L Pulse Oximetry 93 L 92 L 93 L 05/10/18 12:40 05/10/18 12:50 05/10/18 13:00 Temperature Pulse Rate 83 84 85 Respiratory Rate 23 25 H Blood Pressure 118/58 L 113/56 L 125/60 Pulse Oximetry 93 L 93 L 93 L 05/10/18 13:03 05/10/18 13:10 05/10/18 13:20 Temperature Pulse Rate 84 83 83 Respiratory Rate 22 22 24 Blood Pressure 117/57 L 116/57 L 114/56 L Pulse Oximetry 93 L 94 L 94 L 05/10/18 13:30 05/10/18 13:40 05/10/18 13:50 Temperature Pulse Rate 83 83 84 Respiratory Rate 23 23 22 Blood Pressure 122/60 123/57 L 129/62 Pulse Oximetry 94 L 94 L 94 L 05/10/18 14:00 05/10/18 14:10 05/10/18 14:20 Temperature Pulse Rate 85 81 80 Respiratory Rate Blood Pressure 128/60 123/55 L 118/59 L Pulse Oximetry 93 L 94 L 94 L 05/10/18 14:30 05/10/18 14:40 05/10/18 14:50 Temperature Pulse Rate 84 85 88 Respiratory Rate 15 Blood Pressure 118/56 L 124/60 125/64 Pulse Oximetry 95 94 L 91 L 05/10/18 14:53 05/10/18 15:00 05/10/18 15:10 Temperature Pulse Rate 85 85 85 Respiratory Rate 27 H 31 H 28 H Blood Pressure 125/62 116/57 L Pulse Oximetry 94 L 95 05/10/18 15:20 05/10/18 15:30 05/10/18 15:40 Temperature Pulse Rate 85 85 86 Respiratory Rate 28 H 29 H 27 H Blood Pressure 120/60 128/61 122/56 L Pulse Oximetry 94 L 92 L 95 05/10/18 15:50 05/10/18 16:00 05/10/18 16:10 Temperature 99.0 F Pulse Rate 85 85 85 Respiratory Rate 31 H 31 H 18 Blood Pressure 130/63 132/63 130/64 Pulse Oximetry 90 L 91 L 93 L 05/10/18 16:20 05/10/18 18:00 Temperature Pulse Rate 85 91 H Respiratory Rate Blood Pressure 123/61 Pulse Oximetry 91 L Intake & Output 05/10/18 05/10/18 05/11/18 06:59 18:59 06:59 Intake Total 1213 / 1213 381 / 381 50 / 50 Output Total 600 / 600 800 / 800 Balance 613 / 613 -419 / -419 50 / 50 Weight 68.8 kg Intake: IV 500 / 500 300 / 300 50 / 50 Cleviprex Inj 25 mg In 50 ml @ 400 / 400 200 / 200 50 / 50 1 MG/HR 2 mls/hr IV.CONT TITRATE PRN Rx#:[id number] Keppra 1000 mg/100 mL Premix 100 / 100 100 / 100 100 ML @ 400 mls/hr IV.SIG Q12H YUKO Rx#:[id number] Tube Feeding 593 / 593 81 / 81 Water Bolus Amount 120 / 120 Output: Urine 600 / 600 800 / 800 Other: # Incontinent Voids 3 Date of Last Bowel Movement 05/10/18 # Bowel Movements 2 # Incontinent Bowel Movements 1 Narrative: awake makes good eye cntact move and withdraws leg well tracks me around room not following other commands still on vent - Urinary Catheter Management Straight Cath placed during this visit: no Assessment and Plan - Assessment (1) Acute respiratory failure Code(s): J96.00 - Acute respiratory failure, unspecified whether with hypoxia or hypercapnia Status: Acute (2) Angioedema Code(s): T78.3XXA - Angioneurotic edema, initial encounter Status: Acute Qualifiers: Encounter type: initial encounter Qualified Code(s): T78.3XXA - Angioneurotic edema, initial encounter (3) PRES (posterior reversible encephalopathy syndrome) Code(s): I67.83 - Posterior reversible encephalopathy syndrome Status: Acute (4) Anxiety Code(s): F41.9 - Anxiety disorder, unspecified Status: Acute (5) Dementia Code(s): F03.90 - Unspecified dementia without behavioral disturbance Status: Acute (6) HTN (hypertension) Code(s): I10 - Essential (primary) hypertension Status: Acute Qualifiers: Hypertension type: other secondary hypertension Qualified Code(s): I15.8 - Other secondary hypertension - Plan Patient is intubated with swelling of tongue and lips. BP need better control as per Neurology, to keep SBP 120 or less. BP is elevated, on hydralazine via OGT and IV. Also on Labetalol IV PRN. Also on Amlodipine, BP was elevated, Continue same meds. Creatinine has been normal. Neurology following. Hydralazine increase to 50 mg TID. BP is better controlled. I will sign off from Nephrology.
[2018-05-11] MEDS: Insulin NovoLOG Aspart Correctional Sugar Inj SQ SCH ×4 (00:08→17:40)
[2018-05-11] MEDS: levETIRAcetam 1000mg/100mL Inj 100 ML IV.SIG SCH ×2 (00:17→12:45)
[2018-05-11 04:20] LABS: Baso # (Auto) 0.1 th/mm3 (0.0-0.2); Baso % (Auto) 0.7 % (0.0-2.0); Eos % (Auto) 0.1 % (0.0-4.0); Hematocrit 30.7 % (35.0-46.0); Hemoglobin 10.2 gm/dL (11.6-15.3); Lymph # (Auto) 2.4 th/mm3 (1.0-4.8); Lymph % (Auto) 14.2 % (9.0-44.0); Mean Corpuscular HGB Conc 33.3 % (32.0-36.0); Mean Corpuscular Hemoglobin 30.8 pg (27.0-34.0); Mean Corpuscular Volume 92.5 fL (80.0-100.0); Mean Platelet Volume 9.8 fL (7.0-11.0); Mono # (Auto) 1.4 th/mm3 (0.0-0.9); Mono % (Auto) 8.5 % (0.0-8.0); Neut # (Auto) 12.7 th/mm3 (1.8-7.7); Neut % (Auto) 76.5 % (16.0-70.0); Platelet Count 343 th/mm3 (150-450); Red Blood Count 3.33 mil/mm3 (4.00-5.30); Red Cell Distribution Width 13.7 % (11.6-17.2); White Blood Count 16.7 th/mm3 (4.0-11.0)
[2018-05-11 04:26] LABS: Anion Gap 10 meq/L (5-15); Aspartate Aminotransferase 90 U/L (15-37); Blood Urea Nitrogen 35 mg/dL (7-18); Calcium 8.1 mg/dL (8.5-10.1); Carbon Dioxide 24.1 meq/L (21.0-32.0); Chloride 112 meq/L (98-107); Glomerular Filtration Rate 70 mL/min (>89); Glucose,Random 192 mg/dL (74-106); Magnesium 2.1 mg/dL (1.5-2.5); Potassium 3.8 meq/L (3.5-5.1); Sodium 146 meq/L (136-145)
[2018-05-11] MEDS: Clevidipine Inj 25 MG/50 ML VIAL IV.CONT PRN ×4 (04:26→18:47)
[2018-05-11] MEDS: Oral Hygiene Kit OROPHARYNG SCH ×3 (04:26→15:01)
[2018-05-11 04:31] LABS: Alanine Aminotransferase 57 U/L (10-53); Alkaline Phosphatase 110 U/L (45-117); Phosphorus 3.6 mg/dL (2.5-4.9); Total Protein 5.6 g/dL (6.4-8.2)
[2018-05-11 05:08] LABS: Lymphocytes 7 % (9-44); Metamyelocytes 7 % (0-1); Monocytes 7 % (0-8); Myelocytes 3 % (0-0)
[2018-05-11 05:14] LABS: Platelet Estimate Normal (Normal); Toxic Granulation 1+
[2018-05-11 05:15] LABS: RBC Morphology Normal (Normal)
--- NOTE | 2018-05-11 06:06 | XR ---
EXAM DATE: 05/11/2018 5:14 AM EST AGE/SEX: 68 years / Female INDICATIONS: Shortness of breath, CLINICAL DATA: This is the patient's subsequent encounter. Patient reports that signs and symptoms h ave been present for 2 weeks and indicates a pain score of Nonresponsive. MEDICAL/SURGICAL HISTORY: . Hypertension. Dementia. Diabetes. Cerebrovascular attack. Non-Hodgk in lymphoma. . AKA. [place] [facility] [place], 05/09/2018. [facility] [place]ST [place]/O CONTRAST, 05/03/2018. [facility] [place] HEST 1V SINGLE AP, 04/19/2018. . FINDINGS: A single AP semierect view the chest was obtained. The endotracheal tube remains in place 1 cm above the tim. A nasogastric tube is seen coursing through the esophagus stomach. Mild hazy perihilar an d bibasilar opacities remain with no distinct effusion. The heart size is at the upper limits of norm al. The bony thorax is stable in appearance. CONCLUSION: No significant change. Bilateral airspace disease remains. Electronically signed by: Dino Salguero MD Board Certified Radiologist 05/11/2018 6:04 AM EST
[2018-05-11] MEDS: Artificial Tears Opth Drops 15 ML Bottle EACH EYE SCH ×2 (06:37→15:01)
[2018-05-11] MEDS: Chlorhexidine 0.12% Oral Kit 15 ML UDC OROPHARYNG SCH ×2 (07:14→20:33)
[2018-05-11] MEDS: Senna/Docusate Sodium 8.6/50 MG Tablet PO SCH ×2 (09:35→21:52)
[2018-05-11] MEDS: hydrALAZINE 25 MG Tablet PO SCH ×3 (09:35→17:22)
--- NOTE | 2018-05-11 09:35 | P.PNFP ---
Subjective Interval history: 68 yo female with dementia, DM, HTN admitted for hypertension related to catatonia (due likely to depression), now in ICU intubated due to angioedema. RN reports she was on CPAP yesterday and did well, plan is to attempt spontaneous breathing trials today. This morning unfortunately her affect is flattened like it had been previously and her range of emotions is restricted. She again does not respond to questions/commands and has very limited movements. <Brian TysonJordan S - 05/11/18 09:35> Results - Labs Result diagrams: 05/15/18 05:58 05/15/18 05:58 <Roxanna Magana - 05/15/18 10:12> Abnormal lab results 05/08/18 05/11/18 05/11/18 Range/Units 06:34 11:24 17:22 WBC (4.0-11.0) th/mm3 RBC (4.00-5.30) mil/mm3 Hgb (11.6-15.3) gm/dL Hct (35.0-46.0) % Neut % (Auto) (16.0-70.0) % [place] % (Auto) (0.0-8.0) % Neut # (Auto) (1.8-7.7) th/mm3 [place] # (Auto) (0.0-0.9) th/mm3 Chloride (98-107) meq/L BUN (7-18) mg/dL Estimated GFR (>89) mL/min POC Glucose 224 H 201 H (68-110) mg/dl Random Glucose (74-106) mg/dL Calcium (8.5-10.1) mg/dL AST (15-37) U/L ALT (10-53) U/L Alkaline Phosphatase (45-117) U/L Total Protein (6.4-8.2) g/dL Albumin (3.4-5.0) g/dL Thiamine 426 H (70-180) nmol/L 05/12/18 05/12/18 05/12/18 Range/Units 00:50 04:23 04:23 WBC 16.6 H (4.0-11.0) th/mm3 RBC 3.44 L (4.00-5.30) mil/mm3 Hgb 10.6 L (11.6-15.3) gm/dL Hct 31.5 L (35.0-46.0) % Neut % (Auto) 71.6 H (16.0-70.0) % [place] % (Auto) 9.0 H (0.0-8.0) % Neut # (Auto) 11.9 H (1.8-7.7) th/mm3 [place] # (Auto) 1.5 H (0.0-0.9) th/mm3 Chloride 110 H (98-107) meq/L BUN 37 H (7-18) mg/dL Estimated GFR 77 L (>89) mL/min POC Glucose 176 H (68-110) mg/dl Random Glucose 136 H (74-106) mg/dL Calcium 8.0 L (8.5-10.1) mg/dL AST 73 H (15-37) U/L ALT 68 H (10-53) U/L Alkaline Phosphatase 120 H (45-117) U/L Total Protein 5.5 L (6.4-8.2) g/dL Albumin 2.0 L (3.4-5.0) g/dL Thiamine (70-180) nmol/L Short CBC 05/12/18 Range/Units 04:23 WBC 16.6 H (4.0-11.0) th/mm3 Hgb 10.6 L (11.6-15.3) gm/dL Hct 31.5 L (35.0-46.0) % Plt Count 316 (150-450) th/mm3 BMP 05/12/18 04:23 Sodium 145 Potassium 3.6 Chloride 110 H Carbon Dioxide 26.4 BUN 37 H Creatinine 0.75 Calcium 8.0 L Cardiac Enzymes 05/12/18 Range/Units 04:23 Total Creatine Kinase 30 (26-192) U/L Liver Function 05/12/18 Range/Units 04:23 Total Bilirubin 0.3 (0.2-1.0) mg/dL Direct Bilirubin 0.2 (0.0-0.2) mg/dL AST 73 H (15-37) U/L ALT 68 H (10-53) U/L Alkaline Phosphatase 120 H (45-117) U/L Albumin 2.0 L (3.4-5.0) g/dL <Roxanna Magana - 05/15/18 10:12> Abnormal lab results 05/10/18 05/10/18 05/11/18 Range/Units 11:53 17:02 00:06 WBC (4.0-11.0) th/mm3 RBC (4.00-5.30) mil/mm3 Hgb (11.6-15.3) gm/dL Hct (35.0-46.0) % Neut % (Auto) (16.0-70.0) % [place] % (Auto) (0.0-8.0) % Neut # (Auto) (1.8-7.7) th/mm3 [place] # (Auto) (0.0-0.9) th/mm3 Band Neuts % (Manual) (0-6) % Lymphocytes % (Manual) (9-44) % Metamyelocytes % (Man) (0-1) % Myelocytes % (Man) (0-0) % Abs Neuts (Manual) (1.8-7.7) th/mm3 Toxic Granulation (None) Platelet Morphology (Normal) Sodium (136-145) meq/L Chloride (98-107) meq/L BUN (7-18) mg/dL Estimated GFR (>89) mL/min POC Glucose 248 H 173 H 200 H (68-110) mg/dl Random Glucose (74-106) mg/dL Calcium (8.5-10.1) mg/dL AST (15-37) U/L ALT (10-53) U/L Total Protein (6.4-8.2) g/dL Albumin (3.4-5.0) g/dL 05/11/18 05/11/18 05/11/18 Range/Units 03:20 03:20 05:21 WBC 16.7 H (4.0-11.0) th/mm3 RBC 3.33 L (4.00-5.30) mil/mm3 Hgb 10.2 L (11.6-15.3) gm/dL Hct 30.7 L (35.0-46.0) % Neut % (Auto) 76.5 H (16.0-70.0) % [place] % (Auto) 8.5 H (0.0-8.0) % Neut # (Auto) 12.7 H (1.8-7.7) th/mm3 [place] # (Auto) 1.4 H (0.0-0.9) th/mm3 Band Neuts % (Manual) 27 H (0-6) % Lymphocytes % (Manual) 7 L (9-44) % Metamyelocytes % (Man) 7 H (0-1) % Myelocytes % (Man) 3 H (0-0) % Abs Neuts (Manual) 14.4 H (1.8-7.7) th/mm3 Toxic Granulation 1+ H (None) Platelet Morphology Enlarged H (Normal) Sodium 146 H (136-145) meq/L Chloride 112 H (98-107) meq/L BUN 35 H (7-18) mg/dL Estimated GFR 70 L (>89) mL/min POC Glucose 207 H (68-110) mg/dl Random Glucose 192 H (74-106) mg/dL Calcium 8.1 L (8.5-10.1) mg/dL AST 90 H (15-37) U/L ALT 57 H (10-53) U/L Total Protein 5.6 L (6.4-8.2) g/dL Albumin 2.0 L (3.4-5.0) g/dL Short CBC 05/11/18 Range/Units 03:20 WBC 16.7 H (4.0-11.0) th/mm3 Hgb 10.2 L (11.6-15.3) gm/dL Hct 30.7 L (35.0-46.0) % Plt Count 343 (150-450) th/mm3 BMP 05/11/18 03:20 Sodium 146 H Potassium 3.8 Chloride 112 H Carbon Dioxide 24.1 BUN 35 H Creatinine 0.82 Calcium 8.1 L Liver Function 05/11/18 Range/Units 03:20 Total Bilirubin 0.3 (0.2-1.0) mg/dL AST 90 H (15-37) U/L ALT 57 H (10-53) U/L Alkaline Phosphatase 110 (45-117) U/L Albumin 2.0 L (3.4-5.0) g/dL <Jordan Schrader S - 05/11/18 09:35> - Imaging Impressions Head MRI 05/10/18 00:00 CONCLUSION: There is improvement in vasogenic edema within bilateral parietal temporal and occipital lobes since the prior MR examinations from 04/26/2018 at 05/01/2018 with significant periventricular white matter process remaining has the appearance of chronic small vessel ischemic changes. Chest X-Ray 05/11/18 06:00 CONCLUSION: No significant change. Bilateral airspace disease remains. <Jordan Schrader S - 05/11/18 09:35> Physical Exam Vital signs: Vital Signs 05/11/18 11:00 05/11/18 12:00 05/11/18 14:00 Temperature 99.1 F Pulse Rate 88 90 91 H Respiratory Rate 19 27 H Blood Pressure 134/64 Pulse Oximetry 93 L 05/11/18 15:00 05/11/18 16:00 05/11/18 16:20 Temperature 98.9 F Pulse Rate 90 83 81 Respiratory Rate 18 Blood Pressure 127/60 115/58 L Pulse Oximetry 93 L 94 L 05/11/18 16:30 05/11/18 16:40 05/11/18 16:50 Temperature Pulse Rate 82 83 85 Respiratory Rate Blood Pressure 127/60 126/60 137/65 Pulse Oximetry 90 L 86 L 94 L 05/11/18 17:00 05/11/18 17:10 05/11/18 17:20 Temperature Pulse Rate 84 84 87 Respiratory Rate Blood Pressure 139/66 134/61 141/67 H Pulse Oximetry 94 L 95 94 L 05/11/18 17:30 05/11/18 17:40 05/11/18 17:50 Temperature Pulse Rate 88 90 90 Respiratory Rate Blood Pressure 136/64 141/65 H 144/67 H Pulse Oximetry 91 L 92 L 93 L 05/11/18 18:00 05/11/18 18:10 05/11/18 18:20 Temperature Pulse Rate 89 89 90 Respiratory Rate Blood Pressure 137/61 146/67 H 139/59 L Pulse Oximetry 92 L 93 L 93 L 05/11/18 18:30 05/11/18 18:40 05/11/18 18:50 Temperature Pulse Rate 89 89 90 Respiratory Rate Blood Pressure 148/69 H 148/70 H 142/65 H Pulse Oximetry 93 L 93 L 93 L 05/11/18 18:51 05/11/18 19:00 05/11/18 19:10 Temperature Pulse Rate 91 H 90 Respiratory Rate Blood Pressure 147/70 H 141/64 H Pulse Oximetry 93 L 94 L 93 L 05/11/18 19:20 01/05/19 19:30 05/11/18 19:40 Temperature Pulse Rate 91 H 90 91 H Respiratory Rate Blood Pressure 146/69 H 147/69 H 146/66 H Pulse Oximetry 93 L 93 L 92 L 05/11/18 19:50 05/11/18 20:00 05/11/18 20:10 Temperature 99.1 F Pulse Rate 90 90 91 H Respiratory Rate Blood Pressure 144/67 H 146/67 H 143/67 H Pulse Oximetry 93 L 94 L 93 L 05/11/18 20:20 05/11/18 20:23 05/11/18 20:50 Temperature Pulse Rate 90 89 Respiratory Rate 22 Blood Pressure 148/70 H 140/65 Pulse Oximetry 93 L 93 L 05/11/18 21:00 05/11/18 21:10 05/11/18 21:20 Temperature Pulse Rate 90 91 H 88 Respiratory Rate Blood Pressure 146/67 H 159/75 H 161/74 H Pulse Oximetry 94 L 92 L 92 L 05/11/18 21:30 05/11/18 21:40 05/11/18 21:50 Temperature Pulse Rate 86 87 88 Respiratory Rate Blood Pressure 155/70 H 161/72 H 163/74 H Pulse Oximetry 94 L 95 94 L 05/11/18 22:00 05/11/18 22:10 05/11/18 22:20 Temperature Pulse Rate 90 88 87 Respiratory Rate Blood Pressure 168/76 H 161/74 H 163/71 H Pulse Oximetry 94 L 94 L 94 L 05/11/18 22:30 05/11/18 22:40 05/11/18 22:50 Temperature Pulse Rate 87 87 87 Respiratory Rate Blood Pressure 161/74 H 159/72 H 152/70 H Pulse Oximetry 93 L 93 L 94 L 05/11/18 23:00 05/11/18 23:10 05/11/18 23:20 Temperature Pulse Rate 87 86 86 Respiratory Rate Blood Pressure 157/72 H 155/65 H 156/71 H Pulse Oximetry 94 L 93 L 93 L 05/11/18 23:30 05/11/18 23:40 05/11/18 23:50 Temperature Pulse Rate 86 86 83 Respiratory Rate Blood Pressure 158/69 H 145/59 H 139/65 Pulse Oximetry 93 L 94 L 95 05/12/18 00:00 05/12/18 00:10 05/12/18 00:14 Temperature 99.1 F Pulse Rate 86 85 85 Respiratory Rate 18 Blood Pressure 145/67 H 151/70 H Pulse Oximetry 91 L 92 L 05/12/18 00:20 05/12/18 00:30 05/12/18 00:40 Temperature Pulse Rate 85 87 86 Respiratory Rate Blood Pressure 153/72 H 158/73 H 153/65 H Pulse Oximetry 93 L 92 L 92 L 05/12/18 00:50 05/12/18 01:00 05/12/18 02:00 Temperature Pulse Rate 86 85 76 Respiratory Rate Blood Pressure 153/70 H Pulse Oximetry 92 L 92 L 05/12/18 02:10 05/12/18 02:20 05/12/18 02:30 Temperature Pulse Rate 84 83 80 Respiratory Rate Blood Pressure 152/65 H 161/74 H 154/66 H Pulse Oximetry 94 L 95 94 L 05/12/18 02:40 05/12/18 02:50 05/12/18 03:00 Temperature Pulse Rate 82 82 79 Respiratory Rate Blood Pressure 152/71 H 147/61 H 143/67 H Pulse Oximetry 94 L 94 L 96 05/12/18 03:10 05/12/18 03:20 05/12/18 03:21 Temperature Pulse Rate 79 77 76 Respiratory Rate 22 Blood Pressure 142/67 H 144/63 H Pulse Oximetry 96 96 05/12/18 03:30 05/12/18 03:40 05/12/18 03:50 Temperature Pulse Rate 80 80 83 Respiratory Rate Blood Pressure 151/68 H 150/60 H 137/62 Pulse Oximetry 94 L 95 94 L 05/12/18 04:00 05/12/18 04:10 05/12/18 04:20 Temperature 98.8 F Pulse Rate 75 79 82 Respiratory Rate Blood Pressure 142/65 H 131/59 L 151/69 H Pulse Oximetry 94 L 96 93 L 05/12/18 04:30 05/12/18 04:40 05/12/18 04:50 Temperature Pulse Rate 79 79 76 Respiratory Rate Blood Pressure 141/57 H 139/63 138/63 Pulse Oximetry 91 L 91 L 92 L 05/12/18 05:00 05/12/18 05:10 05/12/18 05:20 Temperature Pulse Rate 75 77 77 Respiratory Rate Blood Pressure 138/57 L 146/65 H 137/56 L Pulse Oximetry 93 L 95 94 L 05/12/18 05:30 05/12/18 05:41 05/12/18 05:50 Temperature Pulse Rate 77 79 76 Respiratory Rate Blood Pressure 145/67 H 143/68 H 136/63 Pulse Oximetry 95 94 L 94 L 05/12/18 06:00 05/12/18 06:10 05/12/18 07:00 Temperature Pulse Rate 79 75 80 Respiratory Rate 18 Blood Pressure 129/56 L 152/67 H Pulse Oximetry 96 96 05/12/18 08:00 05/12/18 10:00 Temperature 98.3 F Pulse Rate 79 75 Respiratory Rate 18 Blood Pressure 141/66 H Pulse Oximetry 92 L Intake & Output 05/11/18 05/12/18 05/12/18 18:59 06:59 18:59 Intake Total 590 / 590 100 / 100 50 / 50 Output Total 100 / 100 Balance 590 / 590 0 / 0 50 / 50 Weight 63.8 kg Intake: IV 350 / 350 100 / 100 50 / 50 Cleviprex Inj 25 mg In 50 ml @ 150 / 150 50 / 50 1 MG/HR 2 mls/hr IV.CONT TITRATE PRN Rx#:[id number] Keppra 1000 mg/100 mL Premix 200 / 200 100 / 100 100 ML @ 400 mls/hr IV.SIG Q12H [facility] Rx#:[id number] Oral 240 / 240 Output: Stool 100 / 100 Other: # Voids 4 # Incontinent Voids 4 Date of Last Bowel Movement 05/11/18 05/11/18 05/11/18 # Bowel Movements 0 0 # Incontinent Bowel Movements 1 <Roxanna Magana - 05/15/18 10:12> Vital Signs 05/10/18 10:00 05/10/18 10:07 05/10/18 10:10 Temperature Pulse Rate 88 87 85 Respiratory Rate Blood Pressure 123/60 120/57 L Pulse Oximetry 95 95 94 L 05/10/18 10:20 05/10/18 10:30 05/10/18 10:40 Temperature Pulse Rate 83 81 81 Respiratory Rate Blood Pressure 111/56 L 112/59 L 113/55 L Pulse Oximetry 94 L 94 L 93 L 05/10/18 10:50 05/10/18 11:00 05/10/18 11:10 Temperature Pulse Rate 81 84 82 Respiratory Rate 26 H Blood Pressure 118/58 L 123/62 121/58 L Pulse Oximetry 93 L 93 L 93 L 05/10/18 11:20 05/10/18 11:23 05/10/18 11:30 Temperature Pulse Rate 87 89 Respiratory Rate 24 Blood Pressure 127/66 129/64 Pulse Oximetry 92 L 93 L 05/10/18 11:40 05/10/18 11:41 05/10/18 11:50 Temperature Pulse Rate 87 87 Respiratory Rate 26 H Blood Pressure 128/65 123/58 L Pulse Oximetry 91 L 91 L 93 L 05/10/18 12:00 05/10/18 12:30 05/10/18 12:40 Temperature 99.0 F Pulse Rate 87 84 83 Respiratory Rate 23 Blood Pressure 119/59 L 121/58 L 118/58 L Pulse Oximetry 92 L 93 L 93 L 05/10/18 12:50 05/10/18 13:00 05/10/18 13:03 Temperature Pulse Rate 84 85 84 Respiratory Rate 25 H 22 Blood Pressure 113/56 L 125/60 117/57 L Pulse Oximetry 93 L 93 L 93 L 05/10/18 13:10 05/10/18 13:20 05/10/18 13:30 Temperature Pulse Rate 83 83 83 Respiratory Rate 22 24 23 Blood Pressure 116/57 L 114/56 L 122/60 Pulse Oximetry 94 L 94 L 94 L 05/10/18 13:40 05/10/18 13:50 05/10/18 14:00 Temperature Pulse Rate 83 84 85 Respiratory Rate 23 22 Blood Pressure 123/57 L 129/62 128/60 Pulse Oximetry 94 L 94 L 93 L 05/10/18 14:10 05/10/18 14:20 05/10/18 14:30 Temperature Pulse Rate 81 80 84 Respiratory Rate Blood Pressure 123/55 L 118/59 L 118/56 L Pulse Oximetry 94 L 94 L 95 05/10/18 14:40 05/10/18 14:50 05/10/18 14:53 Temperature Pulse Rate 85 88 85 Respiratory Rate 15 27 H Blood Pressure 124/60 125/64 Pulse Oximetry 94 L 91 L 05/10/18 15:00 05/10/18 15:10 05/10/18 15:20 Temperature Pulse Rate 85 85 85 Respiratory Rate 31 H 28 H 28 H Blood Pressure 125/62 116/57 L 120/60 Pulse Oximetry 94 L 95 94 L 05/10/18 15:30 05/10/18 15:40 05/10/18 15:50 Temperature Pulse Rate 85 86 85 Respiratory Rate 29 H 27 H 31 H Blood Pressure 128/61 122/56 L 130/63 Pulse Oximetry 92 L 95 90 L 05/10/18 16:00 05/10/18 16:10 05/10/18 16:20 Temperature 99.0 F Pulse Rate 85 85 85 Respiratory Rate 31 H 18 Blood Pressure 132/63 130/64 123/61 Pulse Oximetry 91 L 93 L 91 L 05/10/18 18:00 05/10/18 20:00 05/10/18 20:30 Temperature 99.5 F Pulse Rate 91 H 97 H 93 H Respiratory Rate 16 Blood Pressure Pulse Oximetry 93 L 05/10/18 21:00 05/10/18 21:10 05/10/18 21:20 Temperature Pulse Rate 96 H 94 H 90 Respiratory Rate 19 25 H 15 Blood Pressure 126/60 125/60 122/55 L Pulse Oximetry 91 L 90 L 90 L 05/10/18 21:30 05/10/18 21:40 05/10/18 21:50 Temperature Pulse Rate 89 89 92 H Respiratory Rate 27 H 22 22 Blood Pressure 114/58 L 108/61 132/62 Pulse Oximetry 90 L 91 L 91 L 05/10/18 22:00 05/10/18 22:10 05/10/18 22:20 Temperature Pulse Rate 93 H 97 H 96 H Respiratory Rate 31 H 18 16 Blood Pressure 127/64 128/63 126/61 Pulse Oximetry 93 L 95 92 L 05/10/18 22:30 05/10/18 22:40 05/10/18 22:50 Temperature Pulse Rate 93 H 92 H 90 Respiratory Rate 15 14 14 Blood Pressure 125/60 129/61 122/55 L Pulse Oximetry 92 L 92 L 92 L 05/10/18 23:00 05/10/18 23:10 05/10/18 23:20 Temperature Pulse Rate 91 H 90 90 Respiratory Rate 14 14 14 Blood Pressure 128/60 127/60 133/64 Pulse Oximetry 91 L 92 L 93 L 05/10/18 23:30 05/10/18 23:40 05/10/18 23:49 Temperature Pulse Rate 90 87 Respiratory Rate 14 14 18 Blood Pressure 132/60 126/59 L Pulse Oximetry 93 L 94 L 100 05/10/18 23:50 05/10/18 23:51 05/11/18 00:00 Temperature 99.3 F Pulse Rate 92 H 89 90 Respiratory Rate 16 14 16 Blood Pressure 133/61 124/56 L Pulse Oximetry 95 94 L 05/11/18 00:10 05/11/18 00:20 05/11/18 00:30 Temperature Pulse Rate 91 H 92 H 92 H Respiratory Rate 14 14 14 Blood Pressure 124/59 L 126/60 128/61 Pulse Oximetry 92 L 95 92 L 05/11/18 00:40 05/11/18 00:50 05/11/18 01:00 Temperature Pulse Rate 94 H 93 H 93 H Respiratory Rate 15 18 17 Blood Pressure 129/60 109/54 L 133/60 Pulse Oximetry 92 L 94 L 93 L 05/11/18 01:10 05/11/18 01:20 05/11/18 01:30 Temperature Pulse Rate 94 H 95 H 93 H Respiratory Rate 24 26 H 16 Blood Pressure 117/51 L 121/58 L 119/58 L Pulse Oximetry 94 L 91 L 91 L 05/11/18 01:40 05/11/18 01:50 05/11/18 02:00 Temperature Pulse Rate 92 H 91 H 91 H Respiratory Rate 17 27 H 17 Blood Pressure 122/60 116/58 L 121/60 Pulse Oximetry 92 L 92 L 92 L 05/11/18 02:10 05/11/18 02:20 05/11/18 02:30 Temperature Pulse Rate 90 91 H 87 Respiratory Rate 14 18 14 Blood Pressure 119/58 L 126/56 L 121/59 L Pulse Oximetry 92 L 93 L 92 L 05/11/18 02:40 05/11/18 02:50 05/11/18 03:00 Temperature Pulse Rate 83 84 83 Respiratory Rate 14 14 14 Blood Pressure 111/53 L 110/54 L 109/50 L Pulse Oximetry 92 L 93 L 93 L 05/11/18 03:10 05/11/18 03:20 05/11/18 03:23 Temperature Pulse Rate 83 87 87 Respiratory Rate 14 20 15 Blood Pressure 117/58 L 128/59 L Pulse Oximetry 93 L 92 L 92 L 05/11/18 03:30 05/11/18 03:40 05/11/18 03:50 Temperature Pulse Rate 85 86 85 Respiratory Rate 19 17 16 Blood Pressure 123/60 131/56 L 120/59 L Pulse Oximetry 94 L 93 L 92 L 05/11/18 04:00 05/11/18 04:11 05/11/18 04:20 Temperature 99.1 F Pulse Rate 86 90 87 Respiratory Rate 18 24 24 Blood Pressure 128/59 L 133/68 123/58 L Pulse Oximetry 94 L 94 L 92 L 05/11/18 04:30 05/11/18 04:40 05/11/18 06:00 Temperature Pulse Rate 92 H 91 H 87 Respiratory Rate 18 19 Blood Pressure 119/57 L 121/58 L Pulse Oximetry 94 L 93 L 05/11/18 07:00 05/11/18 08:00 05/11/18 08:07 Temperature 99.5 F Pulse Rate 86 85 Respiratory Rate 23 22 22 Blood Pressure 127/69 Pulse Oximetry 94 L 94 L Intake & Output 05/10/18 05/11/18 05/11/18 18:59 06:59 18:59 Intake Total 381 / 381 742 / 742 150 / 150 Output Total 800 / 800 Balance -419 / -419 742 / 742 150 / 150 Weight 66.3 kg Intake: IV 300 / 300 150 / 150 150 / 150 Cleviprex Inj 25 mg In 50 ml @ 200 / 200 150 / 150 50 / 50 1 MG/HR 2 mls/hr IV.CONT TITRATE PRN Rx#:[id number] Keppra 1000 mg/100 mL Premix 100 / 100 100 / 100 100 ML @ 400 mls/hr IV.SIG Q12H [facility] Rx#:[id number] Tube Feeding 81 / 81 472 / 472 Tube Irrigant 120 / 120 Output: Urine 800 / 800 Other: # Voids 3 # Incontinent Voids 3 Date of Last Bowel Movement 05/11/18 # Bowel Movements 2 2 <Brian Jordan Tyson S - 05/11/18 09:35> - Constitutional no acute distress, average body habitus <Brian Jordan Tyson S - 05/11/18 09:35> Comments: intubated <Brian Jordan Tyson S - 05/11/18 09:35> - Routine HEENT Exam ENT: Present: mucous membranes moist <Jordan Schrader 05/11/18 09:35> - Routine Respiratory Exam Present: CTA bilaterally. Absent: accessory muscle use, wheezes, crackles < Jordan Schrader 05/11/18 09:35> - Routine Cardiovascular Exam Present: RRR, S1, S2. Absent: murmur <Torres R3,Jordan Henriquez 05/11/18 09:35> - Routine Abdominal Exam Present: soft. Absent: tenderness <Torres Jordan Tyson 05/11/18 09:35> - Routine Extremities Exam Absent: cyanosis, edema <Torres Jah,Jordan Henriquez 05/11/18 09:35> Comments: s/p R AKA <Jordan Schrader 05/11/18 09:35> - Routine Neurological Exam alert but due to restricted affect she participates minimally in exam, occasionally moves fingers/toes in response to requests but inconsistent. concentration limited. <Jordan Schrader 05/11/18 09:35> - Urinary Catheter Management Straight Cath placed during this visit: no <Roxanna Magana - 05/12/18 11:03> no <Jordan Schrader S - 05/11/18 09:35> Assessment and Plan - Assessment (1) Catatonia associated with another mental disorder Code(s): F06.1 - Catatonic disorder due to known physiological condition Status: Acute (2) Acute respiratory failure Code(s): J96.00 - Acute respiratory failure, unspecified whether with hypoxia or hypercapnia Status: Resolved (3) Angioedema Code(s): T78.3XXA - Angioneurotic edema, initial encounter Status: Resolved (4) PRES (posterior reversible encephalopathy syndrome) Code(s): I67.83 - Posterior reversible encephalopathy syndrome Status: Acute (5) HTN (hypertension) Code(s): I10 - Essential (primary) hypertension Status: Acute (6) Seizures Code(s): R56.9 - Unspecified convulsions Status: Acute (7) Hyperlipidemia Code(s): E78.5 - Hyperlipidemia, unspecified Status: Chronic (8) Diabetes Code(s): E11.9 - Type 2 diabetes mellitus without complications Status: Chronic (9) Diarrhea Code(s): R19.7 - Diarrhea, unspecified Status: Resolved (10) Clavicle fracture Code(s): S42.009A - Fracture of unspecified part of unspecified clavicle, initial encounter for closed fracture Status: Acute (11) Nutrition, metabolism, and development symptoms Code(s): R63.8 - Other symptoms and signs concerning food and fluid intake Status: Acute <Roxanna Magana M - 05/15/18 10:12> (1) Acute respiratory failure Code(s): J96.00 - Acute respiratory failure, unspecified whether with hypoxia or hypercapnia Status: Acute (2) Angioedema Code(s): T78.3XXA - Angioneurotic edema, initial encounter Status: Acute (3) Catatonia associated with another mental disorder Code(s): F06.1 - Catatonic disorder due to known physiological condition Status: Acute (4) PRES (posterior reversible encephalopathy syndrome) Code(s): I67.83 - Posterior reversible encephalopathy syndrome Status: Acute (5) HTN (hypertension) Code(s): I10 - Essential (primary) hypertension Status: Acute (6) Seizures Code(s): R56.9 - Unspecified convulsions Status: Acute (7) Hyperlipidemia Code(s): E78.5 - Hyperlipidemia, unspecified Status: Chronic (8) Diabetes Code(s): E11.9 - Type 2 diabetes mellitus without complications Status: Chronic (9) Diarrhea Code(s): R19.7 - Diarrhea, unspecified Status: Resolved (10) Clavicle fracture Code(s): S42.009A - Fracture of unspecified part of unspecified clavicle, initial encounter for closed fracture Status: Acute (11) Nutrition, metabolism, and development symptoms Code(s): R63.8 - Other symptoms and signs concerning food and fluid intake Status: Acute <Jordan Schraedr S - 05/11/18 09:23> - Assessment and Plan 68 yo female with dementia, HTN, DM admitted with: Catatonia Medical work-up has been negative except for PRES. Given that her altered mental status preceded her hypertension it is likely that the root cause of her altered mental state is catatonia. She does have a component of PRES by MRI but this is most likely due to hypertension caused by catatonia rather than primary hypertension leading to encephalopathy, especially since her mental status changes preceded the MRI findings that suggested PRES. She had mental status changes at a clinic appointment prior to her subsequent high BPs CBC and CK within normal limits; no signs of NMS ABG essentially normal Ammonia very slightly elevated not the source of her mental status decline LATONYA screen positive at low level RF negative RPR negative ESR normal * Stopped Lexapro and Seroquel, per discussion with Psychiatry and her up and down BPs and fever, they did not want this pt to develop NMS or serotonin syndrome * Ativan stopped due to hypotension, respiratory failure from angioedema but has been on benzos for her sedation on the vent * Psychiatry consulted, appreciate assistance * Only treatment likely to improve her depression/catatonia is ECT - ongoing discussion to make arrangements to transfer her to a facility that performs ECT. Psychiatry prior to yesterday was in favor of ECT as soon as possible. However, fortunately, per Psychiatry's assessment today she is improving and ECT can be placed on hold. Today her mental status exam again suggests catatonia. Will be better able to assess once she is extubated, but as of this moment she may need ECT after all. * CT abdomen/pelvis showed questionable pancreatic mass, ruled out by MRI * Normal CA-19/9, CEA and CA-125 * Manage hypertension as noted below Acute Respiratory Failure due to angioedema Now intubated, respiratory status improving, working toward extubation hopefully today Spiked fever to 101, CBC with increasing leukocytosis but has received steroids. No specific signs of infection on cultures or CXR. Fevers improved today * CCM consulted, appreciate assistance * Intubated 05/03 * Completed treatment with H1/H2 anayeli and steroid * Duonebs Q4H * Hopeful for extubation today * Tongue not swollen, questionable benefit from repeat steroid dose * Continue to monitor vitals and CBC; if current trend continues will cover empirically for VAP. PRES MRI findings suggestive of PRES Interval improvement of MRI * Neurology following, appreciate assistance * had improved neurologically as of 05/06 * Checked paraneoplastic labs * Control BP as below Hypertension BP still intermittently elevated likely related to catatonia Difficulty taking PO meds during this hospitalization due to fluctuating mental status * Due to PRES needs tighter BP control per neurology: goal SBP 110-120 * Continue clevidipine drip titrated to target SBP < 120 * IV Hydralazine and labetalol as needed for BP control * Transitioning to PO meds * Hydralazine 25 mg TID - pharmacy is currently out * Coreg 6.25 mg BID * Isosorbide dinitrate 10 mg TIDAC * Amlodipine 10 mg daily * Still labile BPs with need to adjust her drip daily up and down. If this is from her catatonia then hope the BPs stabilize along with her mental condition Seizure Disorder Now with possible repeat seizure vs (more likely) catalepsy from catatonia EEG with nonspecific encephalopathy MRI/MRA unremarkable except for ?PRES as noted LP performed 05/02/18 - chemistries / cultures normal * Neurology on board, appreciate assistance * Continue Keppra to 1000 mg IV BID, once off vent hope to change to po * Control BP as part of PRES management * Treat catatonia as above Diabetes mellitus BG at hospital goal now * Check sugar Q6H now that she is on continuous tube feedings * Holding metformin for now * Low dose SSI * once off vent, hope she eats better Hyperlipidemia * Continue home atorvastatin Diarrhea - improving C difficile negative * Most likely normal due to tube feeds and patient being NPO before tube feeds were initiated * Continue to monitor Right [id number] amputation PT/OT evaluate and treat once more able to cooperate Clavicle Fracture, right RUE neurovascularly intact, no deformity noted * Monitor clinically * WBAT RUE Fluids: Tube feeds and drips only, no running IVF Diet: Tube feed only at the moment * Consulted vocal performer, appreciate recs * Glucerna 1.5 @ 60 mL/hr * ST can reevaluate once extubated for likely resumption of her diet GI: Famotidine Docusate serum/senna 1 tablet twice daily for bowel regimen DVT: Heparin BID ICU electrolyte replacement protocol <Jordan Schrader S - 05/11/18 09:35> Discharge Planning: Pending improvement of respiratory status. Once extubated and BP stable on oral agents, likely would benefit from ECT unless her mental status has improved after extubation. <Jordan Schrader - 05/11/18 09:35> - Attending Attestation The exam, history, and the medical decision-making described in the above note were completed with the assistance of the resident physician. I reviewed and agree with the findings presented. I attest that I had a [id number] encounter with the patient on the same day, and personally performed and documented my assessment and findings in the medical record. unfortunately her alertness and ability to do anything is so variable from day to day and hour to hour. her Psychiatrist and Neurologist have been a big help but she isn't back to what would be her normal behavior despite super tight BP control and time to heal her PRES. She does have a serious depression as best I can tell. even if she is coming out of her catatonia, she would almost certainly benefit from ECT for depression but that is up to her Psychiatrist <Roxanna Magana M - 05/15/18 10:12> <Jordan Schrader S - Last Filed: 05/11/18 09:23> (2) Angioedema Qualifiers: Encounter type: initial encounter Qualified Code(s): T78.3XXA - Angioneurotic edema, initial encounter (5) HTN (hypertension) Qualifiers: Hypertension type: other secondary hypertension Qualified Code(s): I15.8 - Other secondary hypertension (7) Hyperlipidemia Qualifiers: Hyperlipidemia type: pure hypercholesterolemia Qualified Code(s): E78.00 - Pure hypercholesterolemia, unspecified; E78.0 - Pure hypercholesterolemia (8) Diabetes Qualifiers: Diabetes mellitus type: type 2 Diabetes mellitus detention insulin use: unspecified detention insulin use status Diabetes mellitus complication status : with circulatory complication Diabetes mellitus complication detail: with peripheral angiopathy without gangrene Qualified Code(s): E11.51 - Type 2 diabetes mellitus with diabetic peripheral angiopathy without gangrene (10) Clavicle fracture Qualifiers: Encounter type: subsequent encounter Fracture type: closed Laterality: right <Roxanna Magana M - Last Filed: 05/15/18 10:12> (3) Angioedema Qualifiers: Encounter type: initial encounter Qualified Code(s): T78.3XXA - Angioneurotic edema, initial encounter (5) HTN (hypertension) Qualifiers: Hypertension type: other secondary hypertension Qualified Code(s): I15.8 - Other secondary hypertension (7) Hyperlipidemia Qualifiers: Hyperlipidemia type: pure hypercholesterolemia Qualified Code(s): E78.00 - Pure hypercholesterolemia, unspecified; E78.0 - Pure hypercholesterolemia (8) Diabetes Qualifiers: Diabetes mellitus type: type 2 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 business intelligence analyst insulin use status Diabetes mellitus complication status : with circulatory complication Diabetes mellitus complication detail: with peripheral angiopathy without gangrene Qualified Code(s): E11.51 - Type 2 diabetes mellitus with diabetic peripheral angiopathy without gangrene (10) Clavicle fracture Qualifiers: Encounter type: subsequent encounter Fracture type: closed Laterality: right <Jordan Schrader S - Last Filed: 05/11/18 09:23> (2) Angioedema Qualifiers: Encounter type: initial encounter Qualified Code(s): T78.3XXA - Angioneurotic edema, initial encounter (5) HTN (hypertension) Qualifiers: Hypertension type: other secondary hypertension Qualified Code(s): I15.8 - Other secondary hypertension (7) Hyperlipidemia Qualifiers: Hyperlipidemia type: pure hypercholesterolemia Qualified Code(s): E78.00 - Pure hypercholesterolemia, unspecified; E78.0 - Pure hypercholesterolemia (8) Diabetes Qualifiers: Diabetes mellitus type: type 2 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 detention insulin use status Diabetes mellitus complication status : with circulatory complication Diabetes mellitus complication detail: with peripheral angiopathy without gangrene Qualified Code(s): E11.51 - Type 2 diabetes mellitus with diabetic peripheral angiopathy without gangrene (10) Clavicle fracture Qualifiers: Encounter type: subsequent encounter Fracture type: closed Laterality: right <Covington,Roxanna M - Last Filed: 05/15/18 10:12> (3) Angioedema Qualifiers: Encounter type: initial encounter Qualified Code(s): T78.3XXA - Angioneurotic edema, initial encounter (5) HTN (hypertension) Qualifiers: Hypertension type: other secondary hypertension Qualified Code(s): I15.8 - Other secondary hypertension (7) Hyperlipidemia Qualifiers: Hyperlipidemia type: pure hypercholesterolemia Qualified Code(s): E78.00 - Pure hypercholesterolemia, unspecified; E78.0 - Pure hypercholesterolemia (8) Diabetes Qualifiers: Diabetes mellitus type: type 2 Diabetes mellitus detention insulin use: unspecified detention insulin use status Diabetes mellitus complication status : with circulatory complication Diabetes mellitus complication detail: with peripheral angiopathy without gangrene Qualified Code(s): E11.51 - Type 2 diabetes mellitus with diabetic peripheral angiopathy without gangrene (10) Clavicle fracture Qualifiers: Encounter type: subsequent encounter Fracture type: closed Laterality: right
[2018-05-11] MEDS: Famotidine PF Inj 20 MG/2 ML Vial IV.PUSH SCH ×2 (09:36→21:52)
[2018-05-11] MEDS: amLODIPine 10 MG Tablet PO SCH (09:36)
[2018-05-11] MEDS: Heparin - SQ 10,000 UNITS/ML Vial SQ SCH ×2 (09:36→21:51)
[2018-05-11] MEDS: Insulin Detemir Inj 1,000 UNIT/10 ML Vial SQ SCH ×2 (09:37→21:51)
--- NOTE | 2018-05-11 09:48 | P.PNCC ---
Subjective Subjective Remarks/Hospital Course: This is a 68-year-old female. Admission 04/30/2018. Date of consultation 05/03/2018. Past medical history includes non-Hodgkin's lymphoma in remission since 2008, history of CVA, underlying dementia disorder NOS, hypertension, hyperlipidemia, peripheral vascular disease with known right carotid stenosis, diabetes mellitus, gout, and a known right clavicle fracture. She has a right [id number] amputation from peripheral vascular disease. Patient presents to [facility] 04/30 with recent admissions for catatonia state. Patient was treated under psychiatry to be medically cleared by family medicine practice with little improvement in her symptomatology. She presented here with elevated blood pressure and altered mental status. She received clonidine and hydralazine the results and was started on nicardipine drip and transferred to the intensive care unit. She is also on lisinopril which was discontinued recently. Her nicardipine drip is currently off. This morning, was notified by the RN patient had a swollen tongue and has had increasing oxygen requirements. Patient required emergent intubation with glide scope without complication. Most likely is introduced secondary to JACE inhibitor. Patient is currently on famotidine, diphenhydramine and received 1 dose of steroids. 05/04: Currently resting in bed in no acute distress. Tongue remains swollen. Replace potassium. Restarted on nicardipine drip overnight due to hypertension. 05/05: Remains on nicardipine drip at 5 mg an hour. Tongue remains less swollen today. Will diuresis with bumetanide x1. Does not appear to be any distress. Propofol is currently 50 sunita grams per kilogram per minute. Will lessen sedation today. 05/06: Remains on nicardipine drip at 5 mg an hour. Tongue mitral swollen. Weaning parameters borderline. Emesis during spontaneous breathing trials noted. 05/07/18: Afebrile. Remains in adequate drip at 15 mg an hour.. Will switch to clevidipine for less volume. Neurology requests discontinuation of propofol. Adding hydralazine, isosorbide and carvedilol and attempt to wean off for goal systolic blood pressure less than 110 05/08: Currently wean off midazolam drip. Will attempt CPAP trial again today. She does have left-sided pleural effusion. Will consider DC prior to attempt extubation. Tube feeds at goal. 05/09: Failed CPAP. No cuff leak on spontaneous breathing trial early. Start on dexamethasone. FiO2 down to 35%. Diuresed overnight. 05/10: Awake and more interactive. MRI showed much improving involving vasogenic edema. We will try CPAP trial right now and attempt x-ray. No cuff leak. On . She is received 1 day of l Decadron Subjective 05/11: Awake and following commands. Will attempt extubate today. Remains on clevidipine drip at 6. Milligrams an hour. Tolerating tube feeds. Objective Vital Signs / I&O: Vital Signs 05/10/18 10:00 05/10/18 10:07 05/10/18 10:10 Temperature Pulse Rate 88 87 85 Respiratory Rate Blood Pressure 123/60 120/57 L Pulse Oximetry 95 95 94 L 05/10/18 10:20 05/10/18 10:30 05/10/18 10:40 Temperature Pulse Rate 83 81 81 Respiratory Rate Blood Pressure 111/56 L 112/59 L 113/55 L Pulse Oximetry 94 L 94 L 93 L 05/10/18 10:50 05/10/18 11:00 05/10/18 11:10 Temperature Pulse Rate 81 84 82 Respiratory Rate 26 H Blood Pressure 118/58 L 123/62 121/58 L Pulse Oximetry 93 L 93 L 93 L 05/10/18 11:20 05/10/18 11:23 05/10/18 11:30 Temperature Pulse Rate 87 89 Respiratory Rate 24 Blood Pressure 127/66 129/64 Pulse Oximetry 92 L 93 L 05/10/18 11:40 05/10/18 11:41 05/10/18 11:50 Temperature Pulse Rate 87 87 Respiratory Rate 26 H Blood Pressure 128/65 123/58 L Pulse Oximetry 91 L 91 L 93 L 05/10/18 12:00 05/10/18 12:30 05/10/18 12:40 Temperature 99.0 F Pulse Rate 87 84 83 Respiratory Rate 23 Blood Pressure 119/59 L 121/58 L 118/58 L Pulse Oximetry 92 L 93 L 93 L 05/10/18 12:50 05/10/18 13:00 05/10/18 13:03 Temperature Pulse Rate 84 85 84 Respiratory Rate 25 H 22 Blood Pressure 113/56 L 125/60 117/57 L Pulse Oximetry 93 L 93 L 93 L 05/10/18 13:10 05/10/18 13:20 05/10/18 13:30 Temperature Pulse Rate 83 83 83 Respiratory Rate 22 24 23 Blood Pressure 116/57 L 114/56 L 122/60 Pulse Oximetry 94 L 94 L 94 L 05/10/18 13:40 05/10/18 13:50 05/10/18 14:00 Temperature Pulse Rate 83 84 85 Respiratory Rate 23 22 Blood Pressure 123/57 L 129/62 128/60 Pulse Oximetry 94 L 94 L 93 L 05/10/18 14:10 05/10/18 14:20 05/10/18 14:30 Temperature Pulse Rate 81 80 84 Respiratory Rate Blood Pressure 123/55 L 118/59 L 118/56 L Pulse Oximetry 94 L 94 L 95 05/10/18 14:40 05/10/18 14:50 05/10/18 14:53 Temperature Pulse Rate 85 88 85 Respiratory Rate 15 27 H Blood Pressure 124/60 125/64 Pulse Oximetry 94 L 91 L 05/10/18 15:00 05/10/18 15:10 05/10/18 15:20 Temperature Pulse Rate 85 85 85 Respiratory Rate 31 H 28 H 28 H Blood Pressure 125/62 116/57 L 120/60 Pulse Oximetry 94 L 95 94 L 05/10/18 15:30 05/10/18 15:40 05/10/18 15:50 Temperature Pulse Rate 85 86 85 Respiratory Rate 29 H 27 H 31 H Blood Pressure 128/61 122/56 L 130/63 Pulse Oximetry 92 L 95 90 L 05/10/18 16:00 05/10/18 16:10 05/10/18 16:20 Temperature 99.0 F Pulse Rate 85 85 85 Respiratory Rate 31 H 18 Blood Pressure 132/63 130/64 123/61 Pulse Oximetry 91 L 93 L 91 L 05/10/18 18:00 05/10/18 20:00 05/10/18 20:30 Temperature 99.5 F Pulse Rate 91 H 97 H 93 H Respiratory Rate 16 Blood Pressure Pulse Oximetry 93 L 05/10/18 21:00 05/10/18 21:10 05/10/18 21:20 Temperature Pulse Rate 96 H 94 H 90 Respiratory Rate 19 25 H 15 Blood Pressure 126/60 125/60 122/55 L Pulse Oximetry 91 L 90 L 90 L 05/10/18 21:30 05/10/18 21:40 05/10/18 21:50 Temperature Pulse Rate 89 89 92 H Respiratory Rate 27 H 22 22 Blood Pressure 114/58 L 108/61 132/62 Pulse Oximetry 90 L 91 L 91 L 05/10/18 22:00 05/10/18 22:10 05/10/18 22:20 Temperature Pulse Rate 93 H 97 H 96 H Respiratory Rate 31 H 18 16 Blood Pressure 127/64 128/63 126/61 Pulse Oximetry 93 L 95 92 L 05/10/18 22:30 05/10/18 22:40 05/10/18 22:50 Temperature Pulse Rate 93 H 92 H 90 Respiratory Rate 15 14 14 Blood Pressure 125/60 129/61 122/55 L Pulse Oximetry 92 L 92 L 92 L 05/10/18 23:00 05/10/18 23:10 05/10/18 23:20 Temperature Pulse Rate 91 H 90 90 Respiratory Rate 14 14 14 Blood Pressure 128/60 127/60 133/64 Pulse Oximetry 91 L 92 L 93 L 05/10/18 23:30 05/10/18 23:40 05/10/18 23:49 Temperature Pulse Rate 90 87 Respiratory Rate 14 14 18 Blood Pressure 132/60 126/59 L Pulse Oximetry 93 L 94 L 100 05/10/18 23:50 05/10/18 23:51 05/11/18 00:00 Temperature 99.3 F Pulse Rate 92 H 89 90 Respiratory Rate 16 14 16 Blood Pressure 133/61 124/56 L Pulse Oximetry 95 94 L 05/11/18 00:10 05/11/18 00:20 05/11/18 00:30 Temperature Pulse Rate 91 H 92 H 92 H Respiratory Rate 14 14 14 Blood Pressure 124/59 L 126/60 128/61 Pulse Oximetry 92 L 95 92 L 05/11/18 00:40 05/11/18 00:50 05/11/18 01:00 Temperature Pulse Rate 94 H 93 H 93 H Respiratory Rate 15 18 17 Blood Pressure 129/60 109/54 L 133/60 Pulse Oximetry 92 L 94 L 93 L 05/11/18 01:10 05/11/18 01:20 05/11/18 01:30 Temperature Pulse Rate 94 H 95 H 93 H Respiratory Rate 24 26 H 16 Blood Pressure 117/51 L 121/58 L 119/58 L Pulse Oximetry 94 L 91 L 91 L 05/11/18 01:40 05/11/18 01:50 05/11/18 02:00 Temperature Pulse Rate 92 H 91 H 91 H Respiratory Rate 17 27 H 17 Blood Pressure 122/60 116/58 L 121/60 Pulse Oximetry 92 L 92 L 92 L 05/11/18 02:10 05/11/18 02:20 05/11/18 02:30 Temperature Pulse Rate 90 91 H 87 Respiratory Rate 14 18 14 Blood Pressure 119/58 L 126/56 L 121/59 L Pulse Oximetry 92 L 93 L 92 L 05/11/18 02:40 05/11/18 02:50 05/11/18 03:00 Temperature Pulse Rate 83 84 83 Respiratory Rate 14 14 14 Blood Pressure 111/53 L 110/54 L 109/50 L Pulse Oximetry 92 L 93 L 93 L 05/11/18 03:10 05/11/18 03:20 05/11/18 03:23 Temperature Pulse Rate 83 87 87 Respiratory Rate 14 20 15 Blood Pressure 117/58 L 128/59 L Pulse Oximetry 93 L 92 L 92 L 05/11/18 03:30 05/11/18 03:40 05/11/18 03:50 Temperature Pulse Rate 85 86 85 Respiratory Rate 19 17 16 Blood Pressure 123/60 131/56 L 120/59 L Pulse Oximetry 94 L 93 L 92 L 05/11/18 04:00 05/11/18 04:11 05/11/18 04:20 Temperature 99.1 F Pulse Rate 86 90 87 Respiratory Rate 18 24 24 Blood Pressure 128/59 L 133/68 123/58 L Pulse Oximetry 94 L 94 L 92 L 05/11/18 04:30 05/11/18 04:40 05/11/18 06:00 Temperature Pulse Rate 92 H 91 H 87 Respiratory Rate 18 19 Blood Pressure 119/57 L 121/58 L Pulse Oximetry 94 L 93 L 05/11/18 07:00 05/11/18 08:00 05/11/18 08:07 Temperature 99.5 F Pulse Rate 86 85 Respiratory Rate 23 22 22 Blood Pressure 127/69 Pulse Oximetry 94 L 94 L Intake & Output 05/10/18 05/11/18 05/11/18 18:59 06:59 18:59 Intake Total 381 / 381 742 / 742 150 / 150 Output Total 800 / 800 Balance -419 / -419 742 / 742 150 / 150 Weight 66.3 kg Intake: IV 300 / 300 150 / 150 150 / 150 Cleviprex Inj 25 mg In 50 ml @ 200 / 200 150 / 150 50 / 50 1 MG/HR 2 mls/hr IV.CONT TITRATE PRN Rx#:[id number] Keppra 1000 mg/100 mL Premix 100 / 100 100 / 100 100 ML @ 400 mls/hr IV.SIG Q12H [facility] Rx#:[id number] Tube Feeding 81 / 81 472 / 472 Tube Irrigant 120 / 120 Output: Urine 800 / 800 Other: # Voids 3 # Incontinent Voids 3 Date of Last Bowel Movement 05/11/18 # Bowel Movements 2 2 Result Diagrams: 05/11/18 03:20 05/11/18 03:20 Other Results: Microbiology 05/09/18 14:40 Sputum - Endotracheal Gram Stain - Final 05/09/18 14:40 Sputum - Endotracheal Sputum Culture - Preliminary Heavy growth normal respiratory maritza at 24 hours 05/09/18 11:36 Blood - Peripheral Aerobic Blood Culture - Preliminary No growth in 1 day 05/09/18 11:36 Blood - Peripheral Anaerobic Blood Culture - Preliminary No growth in 1 day 05/09/18 11:30 Blood - Peripheral Aerobic Blood Culture - Preliminary No growth in 1 day 05/09/18 11:30 Blood - Peripheral Anaerobic Blood Culture - Preliminary No growth in 1 day 05/02/18 11:30 Cerebral Spinal Fluid - Lumbar Puncture Fungal Smear - Final No fungal elements seen 05/02/18 11:30 Cerebral Spinal Fluid - Lumbar Puncture Fungal Culture - Preliminary No growth in 1 week 05/02/18 11:30 Cerebral Spinal Fluid - Lumbar Puncture Acid Fast Bacilli Smear - Final No acid fast bacilli seen 05/02/18 11:30 Cerebral Spinal Fluid - Lumbar Puncture Mycobacterial Culture - Preliminary No growth in 1 week 05/03/18 08:00 Sputum - Endotracheal Gram Stain - Final 05/03/18 08:00 Sputum - Endotracheal Sputum Culture - Final Heavy growth normal respiratory maritza 05/02/18 11:30 Lumbar Puncture Gram Stain - Final 05/02/18 11:30 Lumbar Puncture CSF Culture - Final No growth in 72 hours Imaging: Carotid Doppler Study 05/01/18 00:00 CONCLUSION: 1. Elevation of the peak systolic velocity of the left internal carotid artery suggesting 50-69% stenosis although the ICA/CCA ratio on the left suggests less than 50% stenosis. CTA of the carotids would be helpful to resolve these discordant findings. There is also elevation of the peak systolic velocity of the left external carotid artery in the 50-69% stenosis range. 2. Less than 50% stenosis involving the right internal carotid artery. 3. Moderate atherosclerotic plaque formation within the carotid bulbs and proximal internal carotid arteries. Head MRI 05/01/18 19:26 There is vasogenic edema seen involving the posterior aspects of the parietal lobes as well as the occipital lobes bilaterally. This is similar to the prior examination. Periventricular high FLAIR signal abnormality also noted involving both cerebral hemispheres but most pronounced within the parietal lobes. This is unchanged. A small lacunar infarction involving the left abraham radiata. No hemorrhage. No acute infarction. Normal flow voids within the major intracranial vessels. Ventricles are normal in size. Orbital structures are normal. No abnormal enhancement following gadolinium. Mucosal thickening without air-fluid levels involving anterior ethmoid air cells on the right. Remaining paranasal sinuses are clear. Fluid signal seen within the mastoid air cells bilaterally but more pronounced on the left. CONCLUSION: 1. Study degraded by motion artifact. 2. Vasogenic edema involving the parietal and occipital lobes bilaterally is stable. Although not specific for this could relate to posterior reversible encephalopathy syndrome (PRES). 3. Atrophy. 4. Chronic small vessel ischemic change. Lumbar Puncture Fluoroscopy 05/02/18 00:00 CONCLUSION: 1. Uncomplicated fluoroscopically guided lumbar puncture. Abdomen/Pelvis CT 05/03/18 00:00 CONCLUSION: 1. Questionable mass within the body of the pancreas measuring 1.7 x 2.6 cm. MRI of the abdomen with contrast may be helpful for further characterization of this questionable mass if clinically indicated. 2. Gallbladder wall is mildly thickened. If there is clinical concern for acute cholecystitis, a hepatobiliary scan may be helpful to confirm cystic duct obstruction. 3. Liver is enlarged and appears somewhat nodular in contour raising the possibility of cirrhosis. No focal mass is noted. 4. Small bilateral pleural effusions with adjacent alveolar consolidations are noted. 5. Tiny pericardial effusion. 6. Minimal ascites. 7. 11 mm calcified fibroid within the uterus. 8. Degenerative changes and scoliosis of the thoracolumbar spine. Chest CT 05/03/18 00:00 CONCLUSION: 1. Small bilateral pleural effusions. 2. Posterior bibasilar alveolar consolidations consistent with compressive atelectasis and/or pneumonia. Clinical correlation is recommended. 3. Tiny pericardial effusion. 4. Cardiomegaly and coronary artery calcifications. 5. No pulmonary nodule, mass or lymphadenopathy. 6. Scoliosis and degenerative changes involving the thoracic spine. Chest X-Ray 05/03/18 07:08 CONCLUSION: 1. Improved position of the endotracheal tube which is now 3 cm above the tim. 2. Scattered bibasilar atelectasis. 3. Degenerative changes and scoliosis of the thoracic spine. Chest X-Ray 05/03/18 07:09 CONCLUSION: 1. Endotracheal tube is low in position at the level of the tim and directed towards the right mainstem bronchus. This should be pulled back 3 cm for more optimal positioning. 2. Scattered atelectatic changes bilaterally. 3. Degenerative changes and scoliosis of the thoracic spine. Abdomen MRI 05/04/18 00:00 CONCLUSION: 1. No pancreatic mass identified on MRI. 2. Bilateral pleural effusions. Moderate anasarca. Mild ascites. Chest X-Ray 05/05/18 06:00 CONCLUSION: Worsening mild consolidation and small pleural effusions at each base. New nasogastric tube coursing into the stomach, tip not included on the study. Endotracheal tube tip is about 2 cm above the tim. Chest X-Ray 05/06/18 06:00 CONCLUSION: Bibasilar areas of consolidation or atelectasis being worse on the left. Some degree of a left effusion can be considered. Chest X-Ray 05/08/18 06:00 CONCLUSION: Hazy density bilaterally which may be secondary to effusions layering posteriorly. Some degree of consolidation or atelectasis at the bases can also be considered. Chest X-Ray 05/09/18 11:12 CONCLUSION: Stable chest with bibasilar airspace disease Stable position of endotracheal and nasogastric tubes. Head MRI 05/10/18 00:00 CONCLUSION: There is improvement in vasogenic edema within bilateral parietal temporal and occipital lobes since the prior MR examinations from 04/26/2018 at 05/01/2018 with significant periventricular white matter process remaining has the appearance of chronic small vessel ischemic changes. Chest X-Ray 05/11/18 06:00 CONCLUSION: No significant change. Bilateral airspace disease remains. Objective Remarks: GENERAL: This is a 68-year-old female currently orotracheally intubated in no acute distress SKIN: Warm and dry. HEAD: Atraumatic. Normocephalic. EYES: Pupils equal and round around 3 mm bilaterally and reactive. No scleral icterus. No injection or drainage. ENT: No nasal bleeding or discharge. Mucous membranes pink and moist. Tongue less edematous and swollen NECK: Trachea midline. No JVD. CARDIOVASCULAR: Regular rate and rhythm. S1, S2. No S4. Without murmur RESPIRATORY: No accessory muscle use. Patient bases with few crackles. GASTROINTESTINAL: Abdomen soft, non-tender, obese. Hepatic and splenic margins not palpable. MUSCULOSKELETAL: Extremities trace bilateral lower extremity edema. No obvious deformities. NEUROLOGICAL: Patient arousable moving all 4 extremities spontaneously to command. More interactive today. Positive cough and gag. Positive corneal reflex. Withdraws to pain. Assessment and Plan - Assessment and Plan Plan: Neuro/Psych: Acute encephalopathy Possible PRES History of CVA Seizure disorder NOS Catatonia MRI brain revealed vasogenic edema in the bilateral posterior occipital lobes. Possible differential includes PRES Repeat MRI brain once this revealed much improvement in vasogenic edema. Stable small vessel ischemic changes. Evaluate Dr. Mehta/neurology. Continue aspirin 81 mg daily. Goal blood pressure between 110 120 systolic. Lumbar puncture 05/02 unremarkable Remains on levetiracetam 1000 mg twice daily for seizures Depression medication escitalopram 20 mg daily Hold gabapentin 60o mg twice daily Family medicine has patient scheduled lorazepam 1 mg every 6 hours Currently off midazolam drip for sedation while intubated Goal of RA SS -0 Daily sedation vacation persistent CV: Hypertensive emergency Hyper lipedema Peripheral vascular disease Noted 2D echocardiogram 05/01 revealed EF around 55-60 with no regional wall motion abnormalities with small pericardial effusion. Goal keep systolic blood pressure around 110-120 per neurology's recommendations Previously on hydralazine, clonidine scheduled. Continue amlodipine 10 mg daily, carvedilol 25 mg twice daily, hydralazine 100 3 times daily and isosorbide dinitrate 10 mg 3 times daily As needed hydralazine, Nitropaste and labetalol Switch nicardipine drip to clevidipine drip maintain systolic blood pressure is 110. Continue atorvastatin 20 mg daily Carotid Dopplers revealed left stenosis 50-69%. Right less than 50%. Resp: Acute respiratory failure secondary angioedema [facility] 14500/1.05/11/34 Ventilator bundle Albuterol/ipratropium aerosols every 4 hours with albuterol every 2 as needed dyspnea Currently on CPAP trial 04/10 at 35%. Tolerating well. Currently on scheduled diphenhydramine 50 mg IV every 6 hours stop date 05/04, famotidine 20 mg IV twice daily and received 1 dose of methylprednisolone succinate 125 mg x1 No cuff leak. Decadron 4 mg q. 8 hours x 2 days Attempt extubation today. GI: Elevated transaminases Continue tube feeding with Glucerna 1.5 goal 45 cc an hour. Noted CT abdomen/pelvis revealed pancreatic mass. The abdominal MRI no pancreatic mass. Noted normal CA 19/9, CEA and CA 125 NG tube to low intermittent wall suction currently Famotidine for GI prophylaxis Docusate serum/senna 1 tablet twice daily for bowel regimen Noted on atorvastatin. Recheck LFTs in a.m. 05/12 : Currently with [place] catheter. Endo: Diabetes mellitus type 2 Gout Sliding scale insulin with aspart insulin every 6 hours low regimen Accu-Cheks to maintain euglycemia TSH 0.5-4 Holding metformin and glimepiride. Renal: Creatinine currently within normal limits Monitor urine output Acute I's and O's Heme: Normocytic anemia Leukocytosis Monitor CBC daily. Follow trends. No indication for transfusion of blood products at this time ID: Recent sputum no growth to date Monitor for signs of hematology infection FEN: Hypernatremia Replace electrolytes as clinically indicated per ICU electrolyte protocol Discontinue all IV fluids Are free water flushes 100 cc every 8 hours MSK: Right [id number] amputation PT/OT evaluate and treat Access -Utilize peripheral IV. Central line if indicated Prophylaxis -GI -famotidine -DVT -SCD/heparin subcu Level 3 follow-up
--- NOTE | 2018-05-11 12:11 | P.PNPSY ---
Subjective Remarks: Patient is seen in her room with RN. Patient's chart reviewed past psychiatric assessments reviewed. It appears patient was extubated this morning. At this time patient resting quietly in her bed she is fairly alert appears to be oriented to place time and situation though she speaks hesitantly in a whisper. There remains some mild posturing activity with her. Though I see no other significant signs of catatonia. At this time I would suggest continuation of her medical treatment. We will continue to observe for any further extension of her catatonic features or resolution of the same. At this time patient does not meet criteria for either transfer to 4 E. or to the psychiatric unit thanks for the consult we will continue to follow Review of Systems Please see med surge assessments Mental Status Examination Appearance: Appropriate Consciousness: Alert Orientation: x4, Person, Place, Date/Time Motor Activity: Other (Patient is bedridden and currently intubated) Speech: Hesitant, Slow, Other (Whispered) Language: Adequate (Strained) Fund of Knowledge: Adequate (Unknown) Attention and Concentration: Adequate (At times) Memory: Impaired Mood: Anxious, Other (Restricted) Affect: Other (Decreased range and intensity) Thought Process & Associations: Intact Thought Content: Appropriate Hallucination Type: None Delusion Type: None Suicidal Ideation: No Suicidal Plan: No Suicidal Intention: No Homicidal Ideation: No Homicidal Plan: No Homicidal Intention: No Insight: Fair Judgment: Impulsive Assessment and Plan - Assessment (1) Catatonia associated with another mental disorder Code(s): F06.1 - Catatonic disorder due to known physiological condition Status: Acute - Plan Plan: Patient appears more appropriate and alert and spontaneous though there continues catatonic features. For now would recommend continuation of medical treatment. We will continue to follow. Patient is not a candidate at this time for transfer to E. or 2 the psychiatric unit Justification for Continued Inpatient Stay: At this time patient with decompensated placed on lower level of care Discharge Planning: To be determined
[2018-05-11] MEDS: Carvedilol 12.5 MG Tablet PO SCH (21:51)
[2018-05-12] MEDS: Insulin NovoLOG Aspart Correctional Sugar Inj SQ SCH ×4 (01:00→18:23)
[2018-05-12] MEDS: Artificial Tears Opth Drops 15 ML Bottle EACH EYE SCH ×4 (01:00→22:42)
[2018-05-12] MEDS: Oral Hygiene Kit OROPHARYNG SCH ×4 (01:00→15:55)
[2018-05-12] MEDS: levETIRAcetam 1000mg/100mL Inj 100 ML IV.SIG SCH ×2 (01:53→12:05)
[2018-05-12 05:09] LABS: Baso # (Auto) 0.1 th/mm3 (0.0-0.2); Baso % (Auto) 0.4 % (0.0-2.0); Eos % (Auto) 0.3 % (0.0-4.0); Hematocrit 31.5 % (35.0-46.0); Hemoglobin 10.6 gm/dL (11.6-15.3); Lymph # (Auto) 3.1 th/mm3 (1.0-4.8); Lymph % (Auto) 18.7 % (9.0-44.0); Mean Corpuscular HGB Conc 33.5 % (32.0-36.0); Mean Corpuscular Hemoglobin 30.7 pg (27.0-34.0); Mean Corpuscular Volume 91.6 fL (80.0-100.0); Mean Platelet Volume 9.4 fL (7.0-11.0); Mono # (Auto) 1.5 th/mm3 (0.0-0.9); Neut # (Auto) 11.9 th/mm3 (1.8-7.7); Neut % (Auto) 71.6 % (16.0-70.0); Platelet Count 316 th/mm3 (150-450); Red Blood Count 3.44 mil/mm3 (4.00-5.30); Red Cell Distribution Width 14.1 % (11.6-17.2); White Blood Count 16.6 th/mm3 (4.0-11.0)
[2018-05-12 05:46] LABS: Carbon Dioxide 26.4 meq/L (21.0-32.0); Magnesium 2.1 mg/dL (1.5-2.5); Phosphorus 4.7 mg/dL (2.5-4.9); Potassium 3.6 meq/L (3.5-5.1); Total Protein 5.5 g/dL (6.4-8.2)
[2018-05-12] MEDS: Carvedilol 12.5 MG Tablet PO SCH ×2 (08:30→21:39)
[2018-05-12] MEDS: hydrALAZINE 25 MG Tablet PO SCH ×3 (08:30→18:23)
[2018-05-12] MEDS: amLODIPine 10 MG Tablet PO SCH (08:30)
[2018-05-12] MEDS: Heparin - SQ 10,000 UNITS/ML Vial SQ SCH ×2 (08:31→21:39)
[2018-05-12] MEDS: Chlorhexidine 0.12% Oral Kit 15 ML UDC OROPHARYNG SCH ×2 (08:31→21:39)
[2018-05-12] MEDS: Famotidine PF Inj 20 MG/2 ML Vial IV.PUSH SCH ×2 (08:32→21:43)
[2018-05-12] MEDS: Senna/Docusate Sodium 8.6/50 MG Tablet PO SCH ×2 (08:32→21:40)
[2018-05-12] MEDS: Insulin Detemir Inj 1,000 UNIT/10 ML Vial SQ SCH ×2 (08:34→21:39)
--- NOTE | 2018-05-12 09:23 | P.PNFP ---
Subjective Interval history: 68 yo female with dementia, DM, HTN admitted for hypertension related to catatonia (due likely to depression), now in ICU intubated due to angioedema. Yesterday was extubated successfully. This morning is alert, responds to questions, but still has soft voice and paucity of speech, poor attention/ concentration, resistance to movement, decreased range of emotion / facial expression. Attests that she is comfortable and not in pain. <Brian TysonJordan S - 05/12/18 09:23> Results - Labs Result diagrams: 05/15/18 05:58 05/15/18 05:58 <Roxanna Magana - 05/15/18 10:14> Abnormal lab results 05/14/18 05/14/18 05/15/18 Range/Units 12:33 17:17 00:17 RBC (4.00-5.30) mil/mm3 Hgb (11.6-15.3) gm/dL Hct (35.0-46.0) % BUN (7-18) mg/dL POC Glucose 170 H 130 H 115 H (68-110) mg/dl Random Glucose (74-106) mg/dL Calcium (8.5-10.1) mg/dL 05/15/18 05/15/18 05/15/18 Range/Units 05:58 05:58 06:11 RBC 3.43 L (4.00-5.30) mil/mm3 Hgb 10.8 L (11.6-15.3) gm/dL Hct 32.1 L (35.0-46.0) % BUN 21 H (7-18) mg/dL POC Glucose 116 H (68-110) mg/dl Random Glucose 108 H (74-106) mg/dL Calcium 8.2 L (8.5-10.1) mg/dL Short CBC 05/15/18 Range/Units 05:58 WBC 10.7 (4.0-11.0) th/mm3 Hgb 10.8 L (11.6-15.3) gm/dL Hct 32.1 L (35.0-46.0) % Plt Count 223 (150-450) th/mm3 BMP 05/15/18 05:58 Sodium 142 Potassium 3.8 Chloride 107 Carbon Dioxide 27.6 BUN 21 H Creatinine 0.52 Calcium 8.2 L <Roxanna Magana - 05/15/18 10:14> Abnormal lab results 05/08/18 05/11/18 05/11/18 Range/Units 06:34 11:24 17:22 WBC (4.0-11.0) th/mm3 RBC (4.00-5.30) mil/mm3 Hgb (11.6-15.3) gm/dL Hct (35.0-46.0) % Neut % (Auto) (16.0-70.0) % [place] % (Auto) (0.0-8.0) % Neut # (Auto) (1.8-7.7) th/mm3 [place] # (Auto) (0.0-0.9) th/mm3 Chloride (98-107) meq/L BUN (7-18) mg/dL Estimated GFR (>89) mL/min POC Glucose 224 H 201 H (68-110) mg/dl Random Glucose (74-106) mg/dL Calcium (8.5-10.1) mg/dL AST (15-37) U/L ALT (10-53) U/L Alkaline Phosphatase (45-117) U/L Total Protein (6.4-8.2) g/dL Albumin (3.4-5.0) g/dL Thiamine 426 H (70-180) nmol/L 05/12/18 05/12/18 05/12/18 Range/Units 00:50 04:23 04:23 WBC 16.6 H (4.0-11.0) th/mm3 RBC 3.44 L (4.00-5.30) mil/mm3 Hgb 10.6 L (11.6-15.3) gm/dL Hct 31.5 L (35.0-46.0) % Neut % (Auto) 71.6 H (16.0-70.0) % [place] % (Auto) 9.0 H (0.0-8.0) % Neut # (Auto) 11.9 H (1.8-7.7) th/mm3 [place] # (Auto) 1.5 H (0.0-0.9) th/mm3 Chloride 110 H (98-107) meq/L BUN 37 H (7-18) mg/dL Estimated GFR 77 L (>89) mL/min POC Glucose 176 H (68-110) mg/dl Random Glucose 136 H (74-106) mg/dL Calcium 8.0 L (8.5-10.1) mg/dL AST 73 H (15-37) U/L ALT 68 H (10-53) U/L Alkaline Phosphatase 120 H (45-117) U/L Total Protein 5.5 L (6.4-8.2) g/dL Albumin 2.0 L (3.4-5.0) g/dL Thiamine (70-180) nmol/L Short CBC 05/12/18 Range/Units 04:23 WBC 16.6 H (4.0-11.0) th/mm3 Hgb 10.6 L (11.6-15.3) gm/dL Hct 31.5 L (35.0-46.0) % Plt Count 316 (150-450) th/mm3 BMP 05/12/18 04:23 Sodium 145 Potassium 3.6 Chloride 110 H Carbon Dioxide 26.4 BUN 37 H Creatinine 0.75 Calcium 8.0 L Cardiac Enzymes 05/12/18 Range/Units 04:23 Total Creatine Kinase 30 (26-192) U/L Liver Function 05/12/18 Range/Units 04:23 Total Bilirubin 0.3 (0.2-1.0) mg/dL Direct Bilirubin 0.2 (0.0-0.2) mg/dL AST 73 H (15-37) U/L ALT 68 H (10-53) U/L Alkaline Phosphatase 120 H (45-117) U/L Albumin 2.0 L (3.4-5.0) g/dL <Jordan Schrader - 05/12/18 09:23> - Imaging Impressions Head MRI 05/14/18 00:00 CONCLUSION: 1. No significant change in the extensive periventricular and subcortical white matter small vessel ischemic changes bilaterally. 2. Diffuse cerebral atrophy is stable. 3. No acute infarct, acute hemorrhage or midline shift. 4. The previously noted edema involving the bilateral parietal, temporal and occipital lobes has resolved. 5. Scattered old lacunar infarcts are stable. <Roxanna Magana - 05/15/18 10:14> Physical Exam Vital signs: Vital Signs 05/14/18 10:27 05/14/18 12:00 05/14/18 15:56 Temperature 97.4 F L 98.3 F Pulse Rate 64 78 Respiratory Rate 20 20 Blood Pressure 143/65 H 98/57 L Pulse Oximetry 94 L 95 96 05/14/18 20:26 05/15/18 01:07 05/15/18 04:40 Temperature 98.1 F 98.3 F 97.9 F Pulse Rate 83 82 70 Respiratory Rate 20 18 18 Blood Pressure 144/65 H 150/77 H 116/70 Pulse Oximetry 92 L 96 97 05/15/18 08:00 05/15/18 09:40 Temperature 97.9 F Pulse Rate 84 Respiratory Rate 20 Blood Pressure 104/66 Pulse Oximetry 92 L 97 Intake & Output 05/14/18 05/15/18 05/15/18 18:59 06:59 18:59 Weight 57 kg Other: # Incontinent Voids 1 2 Date of Last Bowel Movement 05/11/18 05/11/18 <Roxanna Magana - 05/15/18 10:14> Vital Signs 05/11/18 10:00 05/11/18 11:00 05/11/18 12:00 Temperature 99.1 F Pulse Rate 96 H 88 90 Respiratory Rate 19 27 H Blood Pressure 134/64 Pulse Oximetry 93 L 05/11/18 14:00 05/11/18 15:00 05/11/18 16:00 Temperature 98.9 F Pulse Rate 91 H 90 83 Respiratory Rate 18 Blood Pressure 127/60 Pulse Oximetry 93 L 05/11/18 16:20 05/11/18 16:30 05/11/18 16:40 Temperature Pulse Rate 81 82 83 Respiratory Rate Blood Pressure 115/58 L 127/60 126/60 Pulse Oximetry 94 L 90 L 86 L 05/11/18 16:50 05/11/18 17:00 05/11/18 17:10 Temperature Pulse Rate 85 84 84 Respiratory Rate Blood Pressure 137/65 139/66 134/61 Pulse Oximetry 94 L 94 L 95 05/11/18 17:20 05/11/18 17:30 05/11/18 17:40 Temperature Pulse Rate 87 88 90 Respiratory Rate Blood Pressure 141/67 H 136/64 141/65 H Pulse Oximetry 94 L 91 L 92 L 05/11/18 17:50 05/11/18 18:00 05/11/18 18:10 Temperature Pulse Rate 90 89 89 Respiratory Rate Blood Pressure 144/67 H 137/61 146/67 H Pulse Oximetry 93 L 92 L 93 L 05/11/18 18:20 05/11/18 18:30 05/11/18 18:40 Temperature Pulse Rate 90 89 89 Respiratory Rate Blood Pressure 139/59 L 148/69 H 148/70 H Pulse Oximetry 93 L 93 L 93 L 05/11/18 18:50 05/11/18 18:51 05/11/18 19:00 Temperature Pulse Rate 90 91 H Respiratory Rate Blood Pressure 142/65 H 147/70 H Pulse Oximetry 93 L 93 L 94 L 05/11/18 19:10 05/11/18 19:20 05/11/18 19:30 Temperature Pulse Rate 90 91 H 90 Respiratory Rate Blood Pressure 141/64 H 146/69 H 147/69 H Pulse Oximetry 93 L 93 L 93 L 05/11/18 19:40 05/11/18 19:50 05/11/18 20:00 Temperature 99.1 F Pulse Rate 91 H 90 90 Respiratory Rate Blood Pressure 146/66 H 144/67 H 146/67 H Pulse Oximetry 92 L 93 L 94 L 05/11/18 20:10 05/11/18 20:20 05/11/18 20:23 Temperature Pulse Rate 91 H 90 89 Respiratory Rate 22 Blood Pressure 143/67 H 148/70 H Pulse Oximetry 93 L 93 L 93 L 05/11/18 20:50 05/11/18 21:00 05/11/18 21:10 Temperature Pulse Rate 90 91 H Respiratory Rate Blood Pressure 140/65 146/67 H 159/75 H Pulse Oximetry 94 L 92 L 05/11/18 21:20 05/11/18 21:30 05/11/18 21:40 Temperature Pulse Rate 88 86 87 Respiratory Rate Blood Pressure 161/74 H 155/70 H 161/72 H Pulse Oximetry 92 L 94 L 95 05/11/18 21:50 05/11/18 22:00 05/11/18 22:10 Temperature Pulse Rate 88 90 88 Respiratory Rate Blood Pressure 163/74 H 168/76 H 161/74 H Pulse Oximetry 94 L 94 L 94 L 05/11/18 22:20 05/11/18 22:30 05/11/18 22:40 Temperature Pulse Rate 87 87 87 Respiratory Rate Blood Pressure 163/71 H 161/74 H 159/72 H Pulse Oximetry 94 L 93 L 93 L 05/11/18 22:50 05/11/18 23:00 05/11/18 23:10 Temperature Pulse Rate 87 87 86 Respiratory Rate Blood Pressure 152/70 H 157/72 H 155/65 H Pulse Oximetry 94 L 94 L 93 L 05/11/18 23:20 05/11/18 23:30 05/11/18 23:40 Temperature Pulse Rate 86 86 86 Respiratory Rate Blood Pressure 156/71 H 158/69 H 145/59 H Pulse Oximetry 93 L 93 L 94 L 05/11/18 23:50 05/12/18 00:00 05/12/18 00:10 Temperature 99.1 F Pulse Rate 83 86 85 Respiratory Rate Blood Pressure 139/65 145/67 H 151/70 H Pulse Oximetry 95 91 L 92 L 05/12/18 00:14 05/12/18 00:20 05/12/18 00:30 Temperature Pulse Rate 85 85 87 Respiratory Rate 18 Blood Pressure 153/72 H 158/73 H Pulse Oximetry 93 L 92 L 05/12/18 00:40 05/12/18 00:50 05/12/18 01:00 Temperature Pulse Rate 86 86 85 Respiratory Rate Blood Pressure 153/65 H 153/70 H Pulse Oximetry 92 L 92 L 92 L 05/12/18 02:00 05/12/18 02:10 05/12/18 02:20 Temperature Pulse Rate 76 84 83 Respiratory Rate Blood Pressure 152/65 H 161/74 H Pulse Oximetry 94 L 95 05/12/18 02:30 05/12/18 02:40 05/12/18 02:50 Temperature Pulse Rate 80 82 82 Respiratory Rate Blood Pressure 154/66 H 152/71 H 147/61 H Pulse Oximetry 94 L 94 L 94 L 05/12/18 03:00 05/12/18 03:10 05/12/18 03:20 Temperature Pulse Rate 79 79 77 Respiratory Rate Blood Pressure 143/67 H 142/67 H 144/63 H Pulse Oximetry 96 96 96 05/12/18 03:21 05/12/18 03:30 05/12/18 03:40 Temperature Pulse Rate 76 80 80 Respiratory Rate 22 Blood Pressure 151/68 H 150/60 H Pulse Oximetry 94 L 95 05/12/18 03:50 05/12/18 04:00 05/12/18 04:10 Temperature 98.8 F Pulse Rate 83 75 79 Respiratory Rate Blood Pressure 137/62 142/65 H 131/59 L Pulse Oximetry 94 L 94 L 96 05/12/18 04:20 05/12/18 04:30 05/12/18 04:40 Temperature Pulse Rate 82 79 79 Respiratory Rate Blood Pressure 151/69 H 141/57 H 139/63 Pulse Oximetry 93 L 91 L 91 L 05/12/18 04:50 05/12/18 05:00 05/12/18 05:10 Temperature Pulse Rate 76 75 77 Respiratory Rate Blood Pressure 138/63 138/57 L 146/65 H Pulse Oximetry 92 L 93 L 95 05/12/18 05:20 05/12/18 05:30 05/12/18 05:41 Temperature Pulse Rate 77 77 79 Respiratory Rate Blood Pressure 137/56 L 145/67 H 143/68 H Pulse Oximetry 94 L 95 94 L 05/12/18 05:50 05/12/18 06:00 05/12/18 06:10 Temperature Pulse Rate 76 79 75 Respiratory Rate Blood Pressure 136/63 129/56 L 152/67 H Pulse Oximetry 94 L 96 96 05/12/18 07:00 05/12/18 08:00 Temperature Pulse Rate 80 Respiratory Rate 18 Blood Pressure Pulse Oximetry 92 L Intake & Output 05/11/18 05/12/18 05/12/18 18:59 06:59 18:59 Intake Total 590 / 590 100 / 100 50 / 50 Output Total 100 / 100 Balance 590 / 590 0 / 0 50 / 50 Weight 63.8 kg Intake: IV 350 / 350 100 / 100 50 / 50 Cleviprex Inj 25 mg In 50 ml @ 150 / 150 50 / 50 1 MG/HR 2 mls/hr IV.CONT TITRATE PRN Rx#:[id number] Keppra 1000 mg/100 mL Premix 200 / 200 100 / 100 100 ML @ 400 mls/hr IV.SIG Q12H YUKO Rx#:[id number] Oral 240 / 240 Output: Stool 100 / 100 Other: # Voids 4 # Incontinent Voids 4 Date of Last Bowel Movement 05/11/18 05/11/18 # Bowel Movements 0 0 # Incontinent Bowel Movements 1 <Torres R3,Jordan S - 05/12/18 09:23> - Constitutional no acute distress, average body habitus <Torres R3,Jordan S - 05/12/18 09:23> - Routine HEENT Exam Head: Present: normocephalic, atraumatic <Torres R3,Jordan S 05/12/18 09:23> ENT: Present: mucous membranes moist <Torres R3,Jordan S - 05/12/18 09:23> - Routine Respiratory Exam Present: CTA bilaterally. Absent: accessory muscle use, wheezes, crackles < Torres R3,Jordan S - 05/12/18 09:23> - Routine Cardiovascular Exam Present: RRR, S1, S2. Absent: murmur <Torres R3,Jordan S - 05/12/18 09:23> - Routine Abdominal Exam Present: soft <Torres R3,Jordan S 05/12/18 09:23> - Routine Extremities Exam Absent: cyanosis, edema <Torres R3,Jordan S - 05/12/18 09:23> Comments: s/p right AKA <Torres R3,Jordan S 05/12/18 09:23> - Routine Skin Exam Present: intact <Torres R3,Jordan S - 05/12/18 09:23> - Routine Neurological Exam Present: alert <Torres R3,Jordan S 05/12/18 09:23> moves all extremities but slowly and infrequently when directed <Torres R3,Jordan S - 05/12/18 09:23> - Routine Psychiatric Exam Absent: normal affect, cooperative <Torres R3,Jordan S - 05/12/18 09:23> Comments: flattened affect, reduced emotional range in facial expressions, psychomotor slowing <Torres R3,Jordan S - 05/12/18 09:23> - Urinary Catheter Management Straight Cath placed during this visit: no <Roxanna Magana M - 05/15/18 10:14> no <Torres Jah,Jordan S - 05/12/18 10:00> Assessment and Plan - Assessment (1) Catatonia associated with another mental disorder Code(s): F06.1 - Catatonic disorder due to known physiological condition Status: Acute (2) Acute respiratory failure Code(s): J96.00 - Acute respiratory failure, unspecified whether with hypoxia or hypercapnia Status: Resolved (3) Angioedema Code(s): T78.3XXA - Angioneurotic edema, initial encounter Status: Resolved (4) PRES (posterior reversible encephalopathy syndrome) Code(s): I67.83 - Posterior reversible encephalopathy syndrome Status: Acute (5) HTN (hypertension) Code(s): I10 - Essential (primary) hypertension Status: Acute (6) Seizures Code(s): R56.9 - Unspecified convulsions Status: Acute (7) Hyperlipidemia Code(s): E78.5 - Hyperlipidemia, unspecified Status: Chronic (8) Diabetes Code(s): E11.9 - Type 2 diabetes mellitus without complications Status: Chronic (9) Diarrhea Code(s): R19.7 - Diarrhea, unspecified Status: Resolved (10) Clavicle fracture Code(s): S42.009A - Fracture of unspecified part of unspecified clavicle, initial encounter for closed fracture Status: Acute (11) Nutrition, metabolism, and development symptoms Code(s): R63.8 - Other symptoms and signs concerning food and fluid intake Status: Acute <Roxanna Magana - 05/15/18 10:14> (1) Catatonia associated with another mental disorder Code(s): F06.1 - Catatonic disorder due to known physiological condition Status: Acute (2) Acute respiratory failure Code(s): J96.00 - Acute respiratory failure, unspecified whether with hypoxia or hypercapnia Status: Resolved (3) Angioedema Code(s): T78.3XXA - Angioneurotic edema, initial encounter Status: Resolved (4) PRES (posterior reversible encephalopathy syndrome) Code(s): I67.83 - Posterior reversible encephalopathy syndrome Status: Acute (5) HTN (hypertension) Code(s): I10 - Essential (primary) hypertension Status: Acute (6) Seizures Code(s): R56.9 - Unspecified convulsions Status: Acute (7) Hyperlipidemia Code(s): E78.5 - Hyperlipidemia, unspecified Status: Chronic (8) Diabetes Code(s): E11.9 - Type 2 diabetes mellitus without complications Status: Chronic (9) Diarrhea Code(s): R19.7 - Diarrhea, unspecified Status: Resolved (10) Clavicle fracture Code(s): S42.009A - Fracture of unspecified part of unspecified clavicle, initial encounter for closed fracture Status: Acute (11) Nutrition, metabolism, and development symptoms Code(s): R63.8 - Other symptoms and signs concerning food and fluid intake Status: Acute <Jordan Schrader S - 05/12/18 09:56> - Assessment and Plan 68 yo female with dementia, HTN, DM admitted with: Catatonia Medical work-up has been negative except for PRES. Given that her altered mental status preceded her hypertension it is likely that the root cause of her altered mental state is catatonia. She does have a component of PRES by MRI but this is most likely due to hypertension caused by catatonia rather than primary hypertension leading to encephalopathy, especially since her mental status changes preceded the MRI findings that suggested PRES. She had mental status changes at a clinic appointment prior to her subsequent high BPs CBC and CK within normal limits; no signs of NMS ABG essentially normal Ammonia very slightly elevated not the source of her mental status decline LATONYA screen positive at low level RF negative RPR negative ESR normal * Stopped Lexapro and Seroquel, per discussion with Psychiatry and her up and down BPs and fever, they did not want this pt to develop NMS or serotonin syndrome * Ativan stopped due to hypotension, respiratory failure from angioedema but has been on benzos for her sedation on the vent * Psychiatry consulted, appreciate assistance * Only treatment likely to improve her depression/catatonia is ECT - ongoing discussion to make arrangements to transfer her to a facility that performs ECT. Today her mental status exam again suggests catatonia versus depression. As of this moment she may need ECT after all versus aggressive medication management of depression. * CT abdomen/pelvis showed questionable pancreatic mass, ruled out by MRI * Normal CA-19/9, CEA and CA-125 * Manage hypertension as noted below Acute Respiratory Failure due to angioedema - resolved Intubated 05/03 - 05/11 * CCM consulted, appreciate assistance * Completed treatment with H1/H2 anayeli and steroid * Duonebs Q4H * Now doing well s/p extubation PRES MRI findings suggestive of PRES Interval improvement of MRI * Neurology following, appreciate assistance * Control BP as below Hypertension Drip currently off, BP 96/53 * Due to PRES needs tighter BP control per neurology: goal SBP 110-120 * Continue clevidipine drip titrated to target SBP < 120 * IV pushes with Hydralazine and labetalol as needed for BP control * Titrating PO meds * Hydralazine 100 mg TID * Coreg 12.5 mg BID * Isosorbide dinitrate 10 mg TIDAC * Amlodipine 10 mg daily Seizure Disorder Now with possible repeat seizure vs (more likely) catalepsy from catatonia EEG with nonspecific encephalopathy MRI/MRA unremarkable except for ?PRES as noted LP performed 05/02/18 - chemistries / cultures normal * Neurology on board, appreciate assistance * Continue Keppra to 1000 mg IV BID, once off vent hope to change to po * Control BP as part of PRES management * Treat catatonia as above Diabetes mellitus BG at hospital goal now * Check sugar Q6H now that she is on continuous tube feedings * Holding metformin for now * Low dose SSI * off vent, hope she eats better Hyperlipidemia * Continue home atorvastatin Diarrhea - improving C difficile negative * Most likely normal due to tube feeds and patient being NPO before tube feeds were initiated * Continue to monitor Right [id number] amputation PT/OT evaluate and treat once more able to cooperate Clavicle Fracture, right RUE neurovascularly intact, no deformity noted * Monitor clinically * WBAT RUE Fluids: Tube feeds and drips only, no running IVF Diet: Likely pureed diabetic diet pending ST re-evaluation * May end up needing RD consult again; she has poor motivation to eat due to depression/catatonia GI: Famotidine Docusate serum/senna 1 tablet twice daily for bowel regimen DVT: Heparin BID ICU electrolyte replacement protocol <Brian Jordan Tyson S - 05/12/18 10:00> Discharge Planning: If BP remains stable into tomorrow off the drip may be able to transfer out of ICU. Likely will need ECT versus inpatient psychiatric service based on her mental status today, await psychiatric evaluation now that she is extubated. <Brian TysonJordan S - 05/12/18 10:00> - Attending Attestation The exam, history, and the medical decision-making described in the above note were completed with the assistance of the resident physician. I reviewed and agree with the findings presented. I attest that I had a [id number] encounter with the patient on the same day, and personally performed and documented my assessment and findings in the medical record. at least/last she is extubated! unfortunately she is still very depressed <Roxanna Magana M - 05/15/18 10:14> <TorresJordan Fontana S - Last Filed: 05/12/18 09:56> (3) Angioedema Qualifiers: Encounter type: initial encounter Qualified Code(s): T78.3XXA - Angioneurotic edema, initial encounter (5) HTN (hypertension) Qualifiers: Hypertension type: other secondary hypertension Qualified Code(s): I15.8 - Other secondary hypertension (7) Hyperlipidemia Qualifiers: Hyperlipidemia type: pure hypercholesterolemia Qualified Code(s): E78.00 - Pure hypercholesterolemia, unspecified; E78.0 - Pure hypercholesterolemia (8) Diabetes Qualifiers: Diabetes mellitus type: type 2 Diabetes mellitus long-term insulin use: unspecified long-term insulin use status Diabetes mellitus complication status : with circulatory complication Diabetes mellitus complication detail: with peripheral angiopathy without gangrene Qualified Code(s): E11.51 - Type 2 diabetes mellitus with diabetic peripheral angiopathy without gangrene (10) Clavicle fracture Qualifiers: Encounter type: subsequent encounter Fracture type: closed Laterality: right <Roxanna Magana M - Last Filed: 05/15/18 10:14> (3) Angioedema Qualifiers: Encounter type: initial encounter Qualified Code(s): T78.3XXA - Angioneurotic edema, initial encounter (5) HTN (hypertension) Qualifiers: Hypertension type: other secondary hypertension Qualified Code(s): I15.8 - Other secondary hypertension (7) Hyperlipidemia Qualifiers: Hyperlipidemia type: pure hypercholesterolemia Qualified Code(s): E78.00 - Pure hypercholesterolemia, unspecified; E78.0 - Pure hypercholesterolemia (8) Diabetes Qualifiers: Diabetes mellitus type: type 2 Diabetes mellitus long-term insulin use: unspecified long-term insulin use status Diabetes mellitus complication status : with circulatory complication Diabetes mellitus complication detail: with peripheral angiopathy without gangrene Qualified Code(s): E11.51 - Type 2 diabetes mellitus with diabetic peripheral angiopathy without gangrene (10) Clavicle fracture Qualifiers: Encounter type: subsequent encounter Fracture type: closed Laterality: right <Brian Jordan Tyson S - Last Filed: 05/12/18 09:56> (3) Angioedema Qualifiers: Encounter type: initial encounter Qualified Code(s): T78.3XXA - Angioneurotic edema, initial encounter (5) HTN (hypertension) Qualifiers: Hypertension type: other secondary hypertension Qualified Code(s): I15.8 - Other secondary hypertension (7) Hyperlipidemia Qualifiers: Hyperlipidemia type: pure hypercholesterolemia Qualified Code(s): E78.00 - Pure hypercholesterolemia, unspecified; E78.0 - Pure hypercholesterolemia (8) Diabetes Qualifiers: Diabetes mellitus type: type 2 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 use: unspecified computer terminal operator insulin use status Diabetes mellitus complication status : with circulatory complication Diabetes mellitus complication detail: with peripheral angiopathy without gangrene Qualified Code(s): E11.51 - Type 2 diabetes mellitus with diabetic peripheral angiopathy without gangrene (10) Clavicle fracture Qualifiers: Encounter type: subsequent encounter Fracture type: closed Laterality: right <ChinoRoxanna M - Last Filed: 05/15/18 10:14> (3) Angioedema Qualifiers: Encounter type: initial encounter Qualified Code(s): T78.3XXA - Angioneurotic edema, initial encounter (5) HTN (hypertension) Qualifiers: Hypertension type: other secondary hypertension Qualified Code(s): I15.8 - Other secondary hypertension (7) Hyperlipidemia Qualifiers: Hyperlipidemia type: pure hypercholesterolemia Qualified Code(s): E78.00 - Pure hypercholesterolemia, unspecified; E78.0 - Pure hypercholesterolemia (8) Diabetes Qualifiers: Diabetes mellitus type: type 2 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 use: unspecified computer terminal operator insulin use status Diabetes mellitus complication status : with circulatory complication Diabetes mellitus complication detail: with peripheral angiopathy without gangrene Qualified Code(s): E11.51 - Type 2 diabetes mellitus with diabetic peripheral angiopathy without gangrene (10) Clavicle fracture Qualifiers: Encounter type: subsequent encounter Fracture type: closed Laterality: right
--- NOTE | 2018-05-12 10:26 | P.PNADD ---
Addendum to Inpatient Note Reason for Addendum: Additional Documentation Additional information: This note is to serve as a summary of care for the incoming Family Medicine team Ms. 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 Initially this was thought to be due to delirium from a right clavicle fracture which was diagnosed on 04/18, however due to acuity of mental status alteration she was sent to the ER for additional evaluation. First Hospitalization 04/19 - 04/22 Initially admitted for altered mental status. Medical work-up including CBC, BMP , Coags, UDS, CXR, Brain MRI, and Head CT were negative. She was given pain control for her clavicle fracture. She continued to have an abnormal mental status exam with paucity of speech, restricted facial expressions, intermittent tearfulness, poor concentration/attention, and waxy flexibility with psychomotor slowing. Her daughter noted that these behaviors are not her baseline and are indeed abnormal for her. She was evaluated by psychiatry and diagnosed with catatonia likely due to severe depression (of note, her had about 3 weeks prior to initial presentation). Given negative negative medical work-up she was transferred to med/psych for continued treatment of depression/catatonia. Prior to discharge she began to have severe BP elevations and was given clonidine. Med/Psych Admission 04/22 - 04/30 Patient was maintained in med/psych for continued treatment with Ativan for her catatonia. The Ativan would improve her mental status temporarily but then she would revert back to her flattened affect, minimal speech, and poor concentration. During her time in med/psych her blood pressure continued to be elevated and proved difficult to control with oral agents and a clonidine patch. She also had abnormal neurologic activity the evening of 04/24 which was thought to be a seizure. Neurology was consulted who increased her Keppra and obtained a brain MRI on 04/26 which again showed no acute abnormality. Her severe BP elevations were attributed to dysautonomia from catatonia, which made her pressures difficult to control due to their labile nature. Ultimately the decision was made to transfer her back to medical for BP stabilization. Current Hospitalization 04/30 - present Admitted to ICU for BP control with IV drip. Neurology and psychiatry consulted for continuity. Due to lack of improvement and severe pressures, neurology repeated MRI on 05/01 which showed findings suggestive of Posterior Reversible Encephalopathy Syndrome (PRES). BP control was recommended to be tight: SBP 110- 120. This was achieved with IV nicardipine (later transitioned to clevidipine). On 05/03 patient developed severe tongue swelling causing respiratory compromise /failure. She was emergently intubated and critical care was consulted who felt the tongue swelling was due to angioedema from her lisinopril. She was treated with steroids and antihistamines and gradually improved. Ultimately she was extubated on 05/11. Her mental status, however, is essentially unchanged from initial presentation on 04/19. She continues to exhibit features of severe depression / catatonia (flattened affect, little/no speech, poor concentration, waxy flexibility, psychomotor slowing, echopraxia) despite improvement of her PRES by repeat MRI on 05/10. At time of writing it is unclear what her course will be, but likely she will need BP control to ensure continued resolution of her PRES and possibly ECT vs inpatient psychiatric services to address her depression / catatonia. PCP: Dr. Rodolfo Fox
--- NOTE | 2018-05-12 11:18 | P.PNCC ---
Subjective Subjective Remarks/Hospital Course: This is a 68-year-old female. Admission 04/30/2018. Date of consultation 05/03/2018. Past medical history includes non-Hodgkin's lymphoma in remission since 2008, history of CVA, underlying dementia disorder NOS, hypertension, hyperlipidemia, peripheral vascular disease with known right carotid stenosis, diabetes mellitus, gout, and a known right clavicle fracture. She has a right [id number] amputation from peripheral vascular disease. Patient presents to [facility] 04/30 with recent admissions for catatonia state. Patient was treated under psychiatry to be medically cleared by family medicine practice with little improvement in her symptomatology. She presented here with elevated blood pressure and altered mental status. She received clonidine and hydralazine the results and was started on nicardipine drip and transferred to the intensive care unit. She is also on lisinopril which was discontinued recently. Her nicardipine drip is currently off. This morning, was notified by the RN patient had a swollen tongue and has had increasing oxygen requirements. Patient required emergent intubation with glide scope without complication. Most likely is introduced secondary to JACE inhibitor. Patient is currently on famotidine, diphenhydramine and received 1 dose of steroids. 05/04: Currently resting in bed in no acute distress. Tongue remains swollen. Replace potassium. Restarted on nicardipine drip overnight due to hypertension. 05/05: Remains on nicardipine drip at 5 mg an hour. Tongue remains less swollen today. Will diuresis with bumetanide x1. Does not appear to be any distress. Propofol is currently 50 sunita grams per kilogram per minute. Will lessen sedation today. 05/06: Remains on nicardipine drip at 5 mg an hour. Tongue mitral swollen. Weaning parameters borderline. Emesis during spontaneous breathing trials noted. 05/07/18: Afebrile. Remains in adequate drip at 15 mg an hour.. Will switch to clevidipine for less volume. Neurology requests discontinuation of propofol. Adding hydralazine, isosorbide and carvedilol and attempt to wean off for goal systolic blood pressure less than 110 05/08: Currently wean off midazolam drip. Will attempt CPAP trial again today. She does have left-sided pleural effusion. Will consider DC prior to attempt extubation. Tube feeds at goal. 05/09: Failed CPAP. No cuff leak on spontaneous breathing trial early. Start on dexamethasone. FiO2 down to 35%. Diuresed overnight. 05/10: Awake and more interactive. MRI showed much improving involving vasogenic edema. We will try CPAP trial right now and attempt x-ray. No cuff leak. On . She is received 1 day of l Decadron Subjective 05/11: Awake and following commands. Will attempt extubate today. Remains on clevidipine drip at 6. Milligrams an hour. Tolerating tube feeds. 05/12: Patient extubated yesterday, tolerating nasal cannula. Appears comfortable. Objective Vital Signs / I&O: Vital Signs 05/11/18 12:00 05/11/18 14:00 05/11/18 15:00 Temperature 99.1 F Pulse Rate 90 91 H 90 Respiratory Rate 27 H 18 Blood Pressure 134/64 Pulse Oximetry 93 L 05/11/18 16:00 05/11/18 16:20 05/11/18 16:30 Temperature 98.9 F Pulse Rate 83 81 82 Respiratory Rate Blood Pressure 127/60 115/58 L 127/60 Pulse Oximetry 93 L 94 L 90 L 05/11/18 16:40 05/11/18 16:50 05/11/18 17:00 Temperature Pulse Rate 83 85 84 Respiratory Rate Blood Pressure 126/60 137/65 139/66 Pulse Oximetry 86 L 94 L 94 L 05/11/18 17:10 05/11/18 17:20 05/11/18 17:30 Temperature Pulse Rate 84 87 88 Respiratory Rate Blood Pressure 134/61 141/67 H 136/64 Pulse Oximetry 95 94 L 91 L 05/11/18 17:40 05/11/18 17:50 05/11/18 18:00 Temperature Pulse Rate 90 90 89 Respiratory Rate Blood Pressure 141/65 H 144/67 H 137/61 Pulse Oximetry 92 L 93 L 92 L 05/11/18 18:10 05/11/18 18:20 05/11/18 18:30 Temperature Pulse Rate 89 90 89 Respiratory Rate Blood Pressure 146/67 H 139/59 L 148/69 H Pulse Oximetry 93 L 93 L 93 L 05/11/18 18:40 05/11/18 18:50 05/11/18 18:51 Temperature Pulse Rate 89 90 Respiratory Rate Blood Pressure 148/70 H 142/65 H Pulse Oximetry 93 L 93 L 93 L 05/11/18 19:00 05/11/18 19:10 05/11/18 19:20 Temperature Pulse Rate 91 H 90 91 H Respiratory Rate Blood Pressure 147/70 H 141/64 H 146/69 H Pulse Oximetry 94 L 93 L 93 L 05/11/18 19:30 05/11/18 19:40 05/11/18 19:50 Temperature Pulse Rate 90 91 H 90 Respiratory Rate Blood Pressure 147/69 H 146/66 H 144/67 H Pulse Oximetry 93 L 92 L 93 L 05/11/18 20:00 05/11/18 20:10 05/11/18 20:20 Temperature 99.1 F Pulse Rate 90 91 H 90 Respiratory Rate Blood Pressure 146/67 H 143/67 H 148/70 H Pulse Oximetry 94 L 93 L 93 L 05/11/18 20:23 05/11/18 20:50 05/11/18 21:00 Temperature Pulse Rate 89 90 Respiratory Rate 22 Blood Pressure 140/65 146/67 H Pulse Oximetry 93 L 94 L 05/11/18 21:10 05/11/18 21:20 05/11/18 21:30 Temperature Pulse Rate 91 H 88 86 Respiratory Rate Blood Pressure 159/75 H 161/74 H 155/70 H Pulse Oximetry 92 L 92 L 94 L 05/11/18 21:40 05/11/18 21:50 05/11/18 22:00 Temperature Pulse Rate 87 88 90 Respiratory Rate Blood Pressure 161/72 H 163/74 H 168/76 H Pulse Oximetry 95 94 L 94 L 05/11/18 22:10 05/11/18 22:20 05/11/18 22:30 Temperature Pulse Rate 88 87 87 Respiratory Rate Blood Pressure 161/74 H 163/71 H 161/74 H Pulse Oximetry 94 L 94 L 93 L 05/11/18 22:40 05/11/18 22:50 05/11/18 23:00 Temperature Pulse Rate 87 87 87 Respiratory Rate Blood Pressure 159/72 H 152/70 H 157/72 H Pulse Oximetry 93 L 94 L 94 L 05/11/18 23:10 05/11/18 23:20 05/11/18 23:30 Temperature Pulse Rate 86 86 86 Respiratory Rate Blood Pressure 155/65 H 156/71 H 158/69 H Pulse Oximetry 93 L 93 L 93 L 05/11/18 23:40 05/11/18 23:50 05/12/18 00:00 Temperature 99.1 F Pulse Rate 86 83 86 Respiratory Rate Blood Pressure 145/59 H 139/65 145/67 H Pulse Oximetry 94 L 95 91 L 05/12/18 00:10 05/12/18 00:14 05/12/18 00:20 Temperature Pulse Rate 85 85 85 Respiratory Rate 18 Blood Pressure 151/70 H 153/72 H Pulse Oximetry 92 L 93 L 05/12/18 00:30 05/12/18 00:40 05/12/18 00:50 Temperature Pulse Rate 87 86 86 Respiratory Rate Blood Pressure 158/73 H 153/65 H 153/70 H Pulse Oximetry 92 L 92 L 92 L 05/12/18 01:00 05/12/18 02:00 05/12/18 02:10 Temperature Pulse Rate 85 76 84 Respiratory Rate Blood Pressure 152/65 H Pulse Oximetry 92 L 94 L 05/12/18 02:20 05/12/18 02:30 05/12/18 02:40 Temperature Pulse Rate 83 80 82 Respiratory Rate Blood Pressure 161/74 H 154/66 H 152/71 H Pulse Oximetry 95 94 L 94 L 05/12/18 02:50 05/12/18 03:00 05/12/18 03:10 Temperature Pulse Rate 82 79 79 Respiratory Rate Blood Pressure 147/61 H 143/67 H 142/67 H Pulse Oximetry 94 L 96 96 05/12/18 03:20 05/12/18 03:21 05/12/18 03:30 Temperature Pulse Rate 77 76 80 Respiratory Rate 22 Blood Pressure 144/63 H 151/68 H Pulse Oximetry 96 94 L 05/12/18 03:40 05/12/18 03:50 05/12/18 04:00 Temperature 98.8 F Pulse Rate 80 83 75 Respiratory Rate Blood Pressure 150/60 H 137/62 142/65 H Pulse Oximetry 95 94 L 94 L 05/12/18 04:10 05/12/18 04:20 05/12/18 04:30 Temperature Pulse Rate 79 82 79 Respiratory Rate Blood Pressure 131/59 L 151/69 H 141/57 H Pulse Oximetry 96 93 L 91 L 05/12/18 04:40 05/12/18 04:50 05/12/18 05:00 Temperature Pulse Rate 79 76 75 Respiratory Rate Blood Pressure 139/63 138/63 138/57 L Pulse Oximetry 91 L 92 L 93 L 05/12/18 05:10 05/12/18 05:20 05/12/18 05:30 Temperature Pulse Rate 77 77 77 Respiratory Rate Blood Pressure 146/65 H 137/56 L 145/67 H Pulse Oximetry 95 94 L 95 05/12/18 05:41 05/12/18 05:50 05/12/18 06:00 Temperature Pulse Rate 79 76 79 Respiratory Rate Blood Pressure 143/68 H 136/63 129/56 L Pulse Oximetry 94 L 94 L 96 05/12/18 06:10 05/12/18 07:00 05/12/18 08:00 Temperature 98.3 F Pulse Rate 75 80 79 Respiratory Rate 18 18 Blood Pressure 152/67 H 141/66 H Pulse Oximetry 96 92 L 05/12/18 10:00 Temperature Pulse Rate 75 Respiratory Rate Blood Pressure Pulse Oximetry Intake & Output 05/11/18 05/12/18 05/12/18 18:59 06:59 18:59 Intake Total 590 / 590 100 / 100 50 / 50 Output Total 100 / 100 Balance 590 / 590 0 / 0 50 / 50 Weight 63.8 kg Intake: IV 350 / 350 100 / 100 50 / 50 Cleviprex Inj 25 mg In 50 ml @ 150 / 150 50 / 50 1 MG/HR 2 mls/hr IV.CONT TITRATE PRN Rx#:[id number] Keppra 1000 mg/100 mL Premix 200 / 200 100 / 100 100 ML @ 400 mls/hr IV.SIG Q12H [facility] Rx#:[id number] Oral 240 / 240 Output: Stool 100 / 100 Other: # Voids 4 # Incontinent Voids 4 Date of Last Bowel Movement 05/11/18 05/11/18 05/11/18 # Bowel Movements 0 0 # Incontinent Bowel Movements 1 Result Diagrams: 05/12/18 04:23 05/12/18 04:23 Objective Remarks: GENERAL: This is a 68-year-old female currently on nasal cannula, in no acute distress SKIN: Warm and dry. HEAD: Atraumatic. Normocephalic. EYES: Pupils equal and round around 3 mm bilaterally and reactive. No scleral icterus. No injection or drainage. ENT: No nasal bleeding or discharge. Mucous membranes pink and moist. Tongue less edematous and swollen NECK: Trachea midline. No JVD. CARDIOVASCULAR: Regular rate and rhythm. S1, S2. No S4. Without murmur RESPIRATORY: No accessory muscle use. Patient bases with few crackles. GASTROINTESTINAL: Abdomen soft, non-tender, obese. Hepatic and splenic margins not palpable. MUSCULOSKELETAL: Extremities trace bilateral lower extremity edema. No obvious deformities. NEUROLOGICAL: Awake, alert, moving all 4 extremities spontaneously to command. Slow to respond secondary to catatonia which is not new Assessment and Plan - Assessment and Plan Plan: Neuro/Psych: Acute encephalopathy Possible PRES History of CVA Seizure disorder NOS Catatonia MRI brain revealed vasogenic edema in the bilateral posterior occipital lobes. Possible differential includes PRES Repeat MRI brain once this revealed much improvement in vasogenic edema. Stable small vessel ischemic changes. Evaluate Dr. Mehta/neurology. Continue aspirin 81 mg daily. Goal blood pressure between 110 120 systolic. Lumbar puncture 05/02 unremarkable Remains on levetiracetam 1000 mg twice daily for seizures Depression medication escitalopram 20 mg daily Hold gabapentin 60o mg twice daily Avoid sedatives. Psychiatry following CV: Hypertensive emergency Hyper lipedema Peripheral vascular disease Noted 2D echocardiogram 05/01 revealed EF around 55-60 with no regional wall motion abnormalities with small pericardial effusion. Goal keep systolic blood pressure around 110-120 per neurology's recommendations Previously on hydralazine, clonidine scheduled. Continue amlodipine 10 mg daily, carvedilol 25 mg twice daily, hydralazine 100 3 times daily and isosorbide dinitrate 10 mg 3 times daily As needed hydralazine, Nitropaste and labetalol Switch nicardipine drip to clevidipine drip maintain systolic blood pressure is 110. Continue atorvastatin 20 mg daily Carotid Dopplers revealed left stenosis 50-69%. Right less than 50%. Resp: Acute respiratory failure secondary angioedema [facility] 14/1.05/11/34 Ventilator bundle Albuterol/ipratropium aerosols every 4 hours with albuterol every 2 as needed dyspnea Currently on CPAP trial 04/10 at 35%. Tolerating well. Currently on scheduled diphenhydramine 50 mg IV every 6 hours stop date 05/04, famotidine 20 mg IV twice daily and received 1 dose of methylprednisolone succinate 125 mg x1 No cuff leak. Decadron 4 mg q. 8 hours x 2 days Extubated on 05/11, tolerating well. GI: Elevated transaminases Check swallow eval, advance p.o. if tolerated. Noted CT abdomen/pelvis revealed pancreatic mass. The abdominal MRI no pancreatic mass. Noted normal CA 19/9, CEA and CA 125 Famotidine for GI prophylaxis Docusate serum/senna 1 tablet twice daily for bowel regimen Noted on atorvastatin. Follow LFTs : Currently with [place] catheter. Endo: Diabetes mellitus type 2 Gout Sliding scale insulin with aspart insulin every 6 hours low regimen Accu-Cheks to maintain euglycemia TSH 0.5-4 Holding metformin and glimepiride. Renal: Creatinine currently within normal limits Monitor urine output Acute I's and O's Heme: Normocytic anemia Leukocytosis Monitor CBC daily. Follow trends. No indication for transfusion of blood products at this time ID: Recent sputum no growth to date Monitor for signs of hematology infection FEN: Hypernatremia Replace electrolytes as clinically indicated per ICU electrolyte protocol Discontinue all IV fluids Are free water flushes 100 cc every 8 hours MSK: Right [id number] amputation PT/OT evaluate and treat Access -Utilize peripheral IV. Central line if indicated Prophylaxis -GI -famotidine -DVT -SCD/heparin subcu Critical care signing off, please reconsult if needed
[2018-05-12 11:48] LABS: Lymphocytes 12 % (9-44); Monocytes 7 % (0-8); Myelocytes 4 % (0-0); Platelet Estimate Normal (Normal); Platelet Morphology Normal (Normal)
[2018-05-13] MEDS: Oral Hygiene Kit OROPHARYNG SCH ×4 (00:34→17:47)
[2018-05-13] MEDS: Insulin NovoLOG Aspart Correctional Sugar Inj SQ SCH ×4 (00:34→17:51)
[2018-05-13] MEDS: levETIRAcetam 1000mg/100mL Inj 100 ML IV.SIG SCH ×2 (01:10→12:06)
[2018-05-13] MEDS: Artificial Tears Opth Drops 15 ML Bottle EACH EYE SCH ×2 (06:11→17:47)
[2018-05-13 06:47] LABS: Baso # (Auto) 0.1 th/mm3 (0.0-0.2); Baso % (Auto) 0.5 % (0.0-2.0); Eos # (Auto) 0.2 th/mm3 (0.0-0.4); Eos % (Auto) 1.7 % (0.0-4.0); Hematocrit 33.2 % (35.0-46.0); Hemoglobin 10.9 gm/dL (11.6-15.3); Lymph # (Auto) 2.4 th/mm3 (1.0-4.8); Mean Corpuscular Hemoglobin 30.4 pg (27.0-34.0); Mean Corpuscular Volume 92.1 fL (80.0-100.0); Mono # (Auto) 0.9 th/mm3 (0.0-0.9); Mono % (Auto) 7.6 % (0.0-8.0); Neut # (Auto) 8.9 th/mm3 (1.8-7.7); Neut % (Auto) 71.2 % (16.0-70.0); Platelet Count 289 th/mm3 (150-450); Red Cell Distribution Width 13.9 % (11.6-17.2); White Blood Count 12.5 th/mm3 (4.0-11.0)
[2018-05-13 07:04] LABS: Calcium 7.9 mg/dL (8.5-10.1); Carbon Dioxide 28.6 meq/L (21.0-32.0); Potassium 3.2 meq/L (3.5-5.1)
[2018-05-13 09:15] LABS: Eosinophils 1 % (0-4); Lymphocytes 13 % (9-44); Metamyelocytes 2 % (0-1); Monocytes 5 % (0-8); Myelocytes 2 % (0-0)
[2018-05-13 09:16] LABS: Platelet Estimate Normal (Normal); Platelet Morphology Normal (Normal)
[2018-05-13] MEDS: Insulin Detemir Inj 1,000 UNIT/10 ML Vial SQ SCH ×2 (09:31→20:23)
[2018-05-13] MEDS: Senna/Docusate Sodium 8.6/50 MG Tablet PO SCH ×2 (09:32→20:23)
[2018-05-13] MEDS: Chlorhexidine 0.12% Oral Kit 15 ML UDC OROPHARYNG SCH ×2 (09:32→20:22)
[2018-05-13] MEDS: Carvedilol 12.5 MG Tablet PO SCH ×2 (09:32→20:22)
[2018-05-13] MEDS: hydrALAZINE 25 MG Tablet PO SCH ×3 (09:32→17:46)
[2018-05-13] MEDS: Heparin - SQ 10,000 UNITS/ML Vial SQ SCH ×2 (09:32→20:22)
[2018-05-13] MEDS: Famotidine PF Inj 20 MG/2 ML Vial IV.PUSH SCH ×2 (09:33→20:22)
[2018-05-13] MEDS: amLODIPine 10 MG Tablet PO SCH (09:34)
--- NOTE | 2018-05-13 09:47 | P.PNNEU ---
Subjective Active Medications: Active Medications Acetaminophen (Tylenol Liq) 650 mg NG/OG Q6H PRN PRN Reason: PAIN 1-10 AND/OR FEVER >101F Al Hydroxide/Mg Hydroxide (Milk Of Magnesia Liq) 30 ml PO Q12H PRN PRN Reason: Mild Constipation Albuterol (Duoneb Neb (Eloy)) 1 ampul NEB Q4HR NEB [facility] Last Admin: 05/13/18 08:01 Dose: 1 ampul Albuterol (Albuterol Neb (Prn)) 2.5 mg NEB Q2HR NEB PRN PRN Reason: DYSPNEA Amlodipine Besylate (Norvasc) 10 mg PO DAILY [facility] Last Admin: 05/13/18 09:34 Dose: 10 mg Artificial Tears (Tears Naturale Opth Drops) 1 drop EACH EYE Q8H [facility] Last Admin: 05/13/18 06:11 Dose: Not Given Aspirin (Aspirin Chew) 81 mg NG/OG DAILY [facility] Last Admin: 05/13/18 09:33 Dose: 81 mg Atorvastatin Calcium (Lipitor) 40 mg NG/OG HS [facility] Last Admin: 05/12/18 21:39 Dose: 40 mg Bisacodyl (Dulcolax Supp) 10 mg RECTAL DAILY PRN PRN Reason: SEVERE CONSITIPATION Carvedilol (Coreg) 12.5 mg PO BID [facility] Last Admin: 05/13/18 09:32 Dose: 12.5 mg Chlorhexidine Gluconate (Peridex 0.12% Oral Kit) 15 ml OROPHARYNG BID@0800, 2000 [facility] Last Admin: 05/13/18 09:32 Dose: Not Given Dextrose (D50w Vial) 50 ml IV.PUSH UNSCH PRN PRN Reason: PER HYPOGLYCEMIA PROTOCOL Famotidine (Pepcid Pf Inj) 20 mg IV.PUSH Q12HR [facility] Last Admin: 05/13/18 09:33 Dose: 20 mg Gabapentin (Neurontin) 600 mg PO BID [facility] Last Admin: 05/01/18 08:56 Dose: Not Given Glucagon (Glucagon Inj) 1 mg OTHER PRN PRN PRN Reason: for Hypoglycemia Protocol Heparin Sodium (Porcine) (Heparin Inj) 5,000 units SQ Q12HR [facility] Last Admin: 05/13/18 09:32 Dose: 5,000 units Hydralazine HCl (Apresoline) 25 mg NG/OG QID PRN PRN Reason: SEE LABEL COMMENTS Last Admin: 05/10/18 01:26 Dose: 25 mg Hydralazine HCl (Apresoline Inj) 10 mg IV.PUSH Q1H PRN PRN Reason: sbp > 140 Last Admin: 05/08/18 22:04 Dose: 10 mg Hydralazine HCl (Apresoline) 100 mg PO TID [facility] Last Admin: 05/13/18 09:32 Dose: 100 mg Levetiracetam (Keppra 1000 Mg/100 Ml Premix) 100 mls @ 400 mls/hr IV.SIG Q12H [facility] Last Infusion: 05/13/18 03:03 Dose: Infused Fentanyl (Fentanyl 10 Mcg/Ml Premix Drip) 2,500 mcg in 250 mls @ 5 mls/hr IV.SIG TITRATE PRN; Protocol PRN Reason: Per Protocol Magnesium Sulfate 4 gm/ Sodium (Chloride) 100 mls @ 50 mls/hr IV.SIG UNSCH PRN PRN Reason: For Magnesium 0.9 - 1.1 mg/dL Magnesium Sulfate 2 gm/ Sodium (Chloride) 100 mls @ 50 mls/hr IV.SIG UNSCH PRN PRN Reason: For Magnesium 1.2 - 1.6 mg/dL Potassium Chloride (Kcl 40 Meq Premix Inj) 40 meq in 100 mls @ 25 mls/hr IV.SIG Q2H PRN PRN Reason: For Potassium 2.8 - 3.2 mEq/L Potassium Chloride (Kcl 20 Meq Premix Inj) 20 meq in 100 mls @ 50 mls/hr IV.SIG Q2H PRN PRN Reason: For Potassium 3.3 - 3.5 mEq/L Last Infusion: 05/04/18 12:43 Dose: Infused Potassium Chloride (Kcl 40 Meq Premix Inj) 40 meq in 100 mls @ 25 mls/hr IV.SIG UNSCH PRN PRN Reason: For Potassium 3.3 - 3.5 mEq/L Potassium Chloride (Kcl 20 Meq Premix Inj) 20 meq in 100 mls @ 50 mls/hr IV.SIG Q2H PRN PRN Reason: For Potassium 2.8 - 3.2 mEq/L Last Infusion: 05/09/18 09:54 Dose: Infused Potassium Phosphate 30 mmol/ (Sodium Chloride) 260 mls @ 42 mls/hr IV.SIG UNSCH PRN PRN Reason: SEE LABEL COMMENTS Sodium Phosphate 30 mmol/ (Sodium Chloride) 260 mls @ 42 mls/hr IV.SIG UNSCH PRN PRN Reason: For Phosphorus < 2.5 mg/dL Clevidipine (Cleviprex Inj) 25 mg in 50 mls @ 2 mls/hr IV.CONT TITRATE PRN; Protocol PRN Reason: Per protocol Last Titration: 05/12/18 08:57 Dose: Infused Midazolam HCl (Versed Inj) 100 mg in 100 mls @ 1 mls/hr IV.CONT TITRATE PRN; Protocol PRN Reason: See protocol Last Titration: 05/08/18 09:37 Dose: 0 mg/hr, 0 mls/hr Insulin Aspart (Novolog Insulin Correctional Sugar Inj) 0 unit SQ Q6HR [facility]; Protocol Last Admin: 05/13/18 06:11 Dose: Not Given Insulin Detemir (Levemir Inj) 5 unit SQ BID [facility] Last Admin: 05/13/18 09:31 Dose: 5 unit Isosorbide Dinitrate (Isordil) 10 mg PO TIDAC [facility] Last Admin: 05/13/18 09:32 Dose: 10 mg Labetalol HCl (Trandate Inj) 10 mg IV.PUSH Q1H PRN PRN Reason: Sbp>140, Dbp>90, Hr>65 Last Admin: 05/10/18 23:29 Dose: 10 mg Lactulose (Lactulose Liq) 30 ml PO DAILY PRN PRN Reason: SEVERE CONSITIPATION Magnesium Oxide (Mag-Ox) 800 mg PO UNSCH PRN PRN Reason: For Magnesium 1.2 - 1.6 mg/dL Miscellaneous Medication () 1 each OROPHARYNG 0000,0400,1200,1600 [facility] Last Admin: 05/13/18 03:21 Dose: Not Given Ondansetron HCl (Zofran Inj) 4 mg IV.PUSH Q6H PRN PRN Reason: NAUSEA Potassium Bicarb/Potassium Chloride (K-Lyte Cl Eff) 50 meq PO UNSCH PRN PRN Reason: For Potassium 3.3 - 3.5 mEq/L Last Admin: 05/09/18 09:12 Dose: 50 meq Potassium Phosphate (K-Phos Original) 2,000 mg PO Q4H PRN PRN Reason: Phosphorus Less Than 2.5 mg/dL Potassium Phosphate (K-Phos Original) 2,000 mg PO UNSCH PRN PRN Reason: SEE LABEL COMMENTS Senna/Docusate Sodium (Aleah-Colace) 1 tab PO BID [facility] Last Admin: 05/13/18 09:32 Dose: 1 tab Sennosides (Senokot) 17.2 mg PO Q12H PRN PRN Reason: Moderate Constipation Sodium Chloride (Ns Flush) 2 ml IV.FLUSH BID [facility] Last Admin: 05/13/18 09:34 Dose: Not Given Sodium Chloride (Ns Flush) 2 ml IV.FLUSH UNSCH PRN PRN Reason: FLUSH AFTER USING IV ACCESS Last Admin: 05/06/18 08:32 Dose: 2 ml Thiamine HCl (Thiamine Inj) 100 mg IM DAILY [facility] Last Admin: 05/13/18 09:32 Dose: 100 mg Allergies/Adverse Reactions: Allergies Allergy/AdvReac Type Severity Reaction Status Date / Time JACE Inhibitors Allergy Swelling Verified 05/06/18 12:26 of Lip/Tongue/Throat iodine Allergy Swelling Verified 04/19/18 15:50 Physical Exam Vital signs: Vital Signs 05/12/18 10:00 05/12/18 10:30 05/12/18 11:00 Temperature Pulse Rate 76 78 78 Respiratory Rate 21 22 22 Blood Pressure 96/50 L 97/59 L 100/52 L Pulse Oximetry 94 L 96 96 05/12/18 11:30 05/12/18 12:00 05/12/18 12:03 Temperature 98.6 F Pulse Rate 79 78 79 Respiratory Rate 28 H 20 26 H Blood Pressure 94/54 L 91/52 L 104/55 L Pulse Oximetry 93 L 95 95 05/12/18 12:30 05/12/18 13:00 05/12/18 13:30 Temperature Pulse Rate 81 80 79 Respiratory Rate 40 H 22 24 Blood Pressure 97/56 L 98/50 L 97/51 L Pulse Oximetry 94 L 94 L 94 L 05/12/18 14:00 05/12/18 14:30 05/12/18 15:00 Temperature Pulse Rate 76 69 72 Respiratory Rate 24 29 H 25 H Blood Pressure 100/55 L 110/53 L 102/51 L Pulse Oximetry 93 L 96 96 05/12/18 15:30 05/12/18 16:00 05/12/18 16:30 Temperature 98.4 F Pulse Rate 73 76 78 Respiratory Rate 22 20 19 Blood Pressure 111/54 L 104/54 L 109/55 L Pulse Oximetry 96 95 95 05/12/18 17:00 05/12/18 17:30 05/12/18 18:00 Temperature Pulse Rate 79 79 79 Respiratory Rate 17 20 20 Blood Pressure 102/56 L 94/60 L 96/52 L Pulse Oximetry 93 L 96 94 L 05/12/18 18:30 05/12/18 19:00 05/12/18 19:30 Temperature Pulse Rate 78 78 80 Respiratory Rate 21 21 22 Blood Pressure 99/54 L 99/54 L 110/53 L Pulse Oximetry 94 L 94 L 95 05/12/18 19:54 05/12/18 19:55 05/12/18 20:00 Temperature 98.8 F Pulse Rate 79 80 Respiratory Rate 18 19 Blood Pressure 112/54 L Pulse Oximetry 96 95 05/12/18 20:30 05/12/18 21:00 05/12/18 21:30 Temperature Pulse Rate 84 80 76 Respiratory Rate 23 23 19 Blood Pressure 114/60 114/59 L 107/64 Pulse Oximetry 96 94 L 95 05/12/18 22:00 05/12/18 22:30 05/12/18 23:00 Temperature Pulse Rate 81 82 80 Respiratory Rate 20 19 23 Blood Pressure 110/55 L 108/65 122/61 Pulse Oximetry 94 L 94 L 94 L 05/12/18 23:30 05/13/18 00:00 05/13/18 00:30 Temperature 98.8 F Pulse Rate 79 79 72 Respiratory Rate 21 25 H 20 Blood Pressure 115/56 L 106/76 105/55 L Pulse Oximetry 97 95 95 05/13/18 00:40 05/13/18 01:00 05/13/18 01:30 Temperature Pulse Rate 71 80 79 Respiratory Rate 18 25 H 23 Blood Pressure 108/53 L 108/54 L Pulse Oximetry 96 96 05/13/18 02:00 05/13/18 02:30 05/13/18 03:00 Temperature Pulse Rate 72 75 77 Respiratory Rate 20 18 18 Blood Pressure 104/56 L 113/58 L 117/62 Pulse Oximetry 95 95 94 L 05/13/18 03:30 05/13/18 04:00 05/13/18 06:00 Temperature 98.4 F Pulse Rate 75 74 74 Respiratory Rate 19 17 Blood Pressure 111/58 L 109/56 L Pulse Oximetry 94 L 94 L 05/13/18 08:00 05/13/18 08:05 Temperature Pulse Rate 80 Respiratory Rate 18 Blood Pressure Pulse Oximetry 96 Intake & Output 05/12/18 05/13/18 05/13/18 18:59 06:59 18:59 Intake Total 250 / 250 160 / 160 Output Total 100 / 100 Balance 250 / 250 60 / 60 Weight 61.4 kg Intake: IV 150 / 150 100 / 100 Cleviprex Inj 25 mg In 50 ml @ 50 / 50 1 MG/HR 2 mls/hr IV.CONT TITRATE PRN Rx#:[id number] Keppra 1000 mg/100 mL Premix 100 / 100 100 / 100 100 ML @ 400 mls/hr IV.SIG Q12H ELOY Rx#:[id number] Oral 100 / 100 60 / 60 Output: Stool 100 / 100 Other: # Voids 4 # Incontinent Voids 4 Date of Last Bowel Movement 05/11/18 05/11/18 # Bowel Movements 0 0 # Incontinent Bowel Movements 1 Narrative: wont do all that much for me says fabiana and kai follows some commands others not moves all well will not show thumbs but will hold up left arm for me slow to answer - Urinary Catheter Management Straight Cath placed during this visit: no Objective Laboratory Results - last 24 hr 05/12/18 05/12/18 05/12/18 04:23 11:37 18:18 WBC RBC Hgb Hct MCV MCH MCHC RDW Plt Count MPV Prelim Diff (Auto) Neut % (Auto) Lymph % (Auto) [place] % (Auto) Eos % (Auto) Baso % (Auto) Neut # (Auto) Lymph # (Auto) [place] # (Auto) Eos # (Auto) Baso # (Auto) WBC Differential Manual diff final Seg Neuts % (Manual) 68 Band Neuts % (Manual) 9 H Lymphocytes % (Manual) 12 Monocytes % (Manual) 7 Eosinophils % (Manual) Metamyelocytes % (Man) Myelocytes % (Man) 4 H Abs Neuts (Manual) 13.4 H Differential Comment Platelet Estimate Normal Platelet Morphology Normal Sodium Potassium Chloride Carbon Dioxide Anion Gap BUN Creatinine Estimated GFR POC Glucose 133 H 127 H Random Glucose Calcium 05/13/18 05/13/18 05/13/18 00:10 05:45 05:46 WBC 12.5 H RBC 3.60 L Hgb 10.9 L Hct 33.2 L MCV 92.1 MCH 30.4 MCHC 33.0 RDW 13.9 Plt Count 289 MPV 9.0 Prelim Diff (Auto) Slide review pending Neut % (Auto) 71.2 H Lymph % (Auto) 19.0 [place] % (Auto) 7.6 Eos % (Auto) 1.7 Baso % (Auto) 0.5 Neut # (Auto) 8.9 H Lymph # (Auto) 2.4 [place] # (Auto) 0.9 Eos # (Auto) 0.2 Baso # (Auto) 0.1 WBC Differential Manual diff final Seg Neuts % (Manual) 70 Band Neuts % (Manual) 7 H Lymphocytes % (Manual) 13 Monocytes % (Manual) 5 Eosinophils % (Manual) 1 Metamyelocytes % (Man) 2 H Myelocytes % (Man) 2 H Abs Neuts (Manual) 10.1 H Differential Comment . Platelet Estimate Normal Platelet Morphology Normal Sodium Potassium Chloride Carbon Dioxide Anion Gap BUN Creatinine Estimated GFR POC Glucose 115 H 102 Random Glucose Calcium 05/13/18 05:46 WBC RBC Hgb Hct MCV MCH MCHC RDW Plt Count MPV Prelim Diff (Auto) Neut % (Auto) Lymph % (Auto) [place] % (Auto) Eos % (Auto) Baso % (Auto) Neut # (Auto) Lymph # (Auto) [place] # (Auto) Eos # (Auto) Baso # (Auto) WBC Differential Seg Neuts % (Manual) Band Neuts % (Manual) Lymphocytes % (Manual) Monocytes % (Manual) Eosinophils % (Manual) Metamyelocytes % (Man) Myelocytes % (Man) Abs Neuts (Manual) Differential Comment Platelet Estimate Platelet Morphology Sodium 147 H Potassium 3.2 L Chloride 110 H Carbon Dioxide 28.6 Anion Gap 8 BUN 32 H Creatinine 0.67 Estimated GFR 88 L POC Glucose Random Glucose 97 Calcium 7.9 L Microbiology 05/09/18 11:36 Aerobic Blood Culture - Preliminary Blood - Peripheral No growth in 3 days Anaerobic Blood Culture - Preliminary No growth in 3 days 05/09/18 11:30 Aerobic Blood Culture - Preliminary Blood - Peripheral No growth in 3 days Anaerobic Blood Culture - Preliminary No growth in 3 days Review/Management - Diagnosis (1) Hypertensive encephalopathy Code(s): I67.4 - Hypertensive encephalopathy Status: Acute Current Visit: Yes (2) HTN (hypertension) Code(s): I10 - Essential (primary) hypertension Status: Acute Current Visit : No (3) Dementia Code(s): F03.90 - Unspecified dementia without behavioral disturbance Status: Acute Current Visit: No (4) Seizures Code(s): R56.9 - Unspecified convulsions Status: Acute Current Visit: No (5) Anxiety Code(s): F41.9 - Anxiety disorder, unspecified Status: Acute Current Visit: No - Review/Management Plan: 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 may have element of PRES as noted in prior notes recs check csf studies-pending bp control Thiamine supplementation follow exam Dr. Mehta to follow in a.m. 05/01/18 mri loops like PRES mra and mrv and labs all neg keep bp 110-120/ LP today eeg neg on keppra --------- 05/02/18 looks a little better mri repeat yest no change pres bp better keep 110-120/ await LP needs done today!! on keppra 05/03/18 mri no change eeg neg LP neg bp better check ct abd and pelvis and chest paraneo 05/06/18 looks so much better neurowise check paraneoplastic labs PRES clinically better thiamine pend will recheck mri in few days keep bp down 110-120/ ct chest and abd ok 05/07/18 sedated i dw med team pt looked to have early changes of pres 2 days after admit and bp initially 186/ in er the Question of which came first the pres or the catatonia ? i think overall the pres likley caused the ms changes as bp came down she is so much better yest i dw nurse hold sedative should awaken she was on seroquel and lexapro i believe b4 admit and nms considered with drastic improvement clinically would not rec ect need to inc po meds for bp control i see no major hypotension documented when not on iv meds 05/08/18 will need to keep off sedatives i dw nurse keep bp 110-120/ possible extubation today as above i am not convinced she had catatonia b4 pres started as bp taken in er day b4 ms changes in 180/ range regardless with ms improvement with rx of bp i am not recommending ect at this time 05/09/17 130-170/ we need to keep bp 110-120 at all times more awake off sedatives working on extubation 05/10/18 would like bp 110-120/ recheck mri looking well overall await extubation when can will fu sunday call neuro automobile relocation engineer if any ? 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
[2018-05-13] MEDS: Potassium Chlor 20 mEq Premix 20 MEQ/100 ML PIGGYBACK IV.SIG PRN ×4 (12:07→18:38)
--- NOTE | 2018-05-13 12:08 | P.PNFP ---
Subjective Interval history: Patient seen and examined this morning. No acute events overnight. Patient doing well status post extubation. Critical care signed off yesterday. Discussed with nursing staff, reports patient has been stable. Patient off all IV drips. Patient responds to most questions, however sometimes she is blank in response. Oriented to person and place, unable to answer what year it is. Denies any new symptoms. <Dominique TysonAbhijit - 05/13/18 14:08> Results - Labs Result diagrams: 05/13/18 05:46 05/13/18 05:46 <Dino Day - 05/13/18 16:42> Abnormal lab results 05/12/18 05/13/18 05/13/18 Range/Units 18:18 00:10 05:46 WBC 12.5 H (4.0-11.0) th/mm3 RBC 3.60 L (4.00-5.30) mil/mm3 Hgb 10.9 L (11.6-15.3) gm/dL Hct 33.2 L (35.0-46.0) % Neut % (Auto) 71.2 H (16.0-70.0) % Neut # (Auto) 8.9 H (1.8-7.7) th/mm3 Band Neuts % (Manual) 7 H (0-6) % Metamyelocytes % (Man) 2 H (0-1) % Myelocytes % (Man) 2 H (0-0) % Abs Neuts (Manual) 10.1 H (1.8-7.7) th/mm3 Sodium (136-145) meq/L Potassium (3.5-5.1) meq/L Chloride (98-107) meq/L BUN (7-18) mg/dL Estimated GFR (>89) mL/min POC Glucose 127 H 115 H (68-110) mg/dl Calcium (8.5-10.1) mg/dL 05/13/18 05/13/18 Range/Units 05:46 12:09 WBC (4.0-11.0) th/mm3 RBC (4.00-5.30) mil/mm3 Hgb (11.6-15.3) gm/dL Hct (35.0-46.0) % Neut % (Auto) (16.0-70.0) % Neut # (Auto) (1.8-7.7) th/mm3 Band Neuts % (Manual) (0-6) % Metamyelocytes % (Man) (0-1) % Myelocytes % (Man) (0-0) % Abs Neuts (Manual) (1.8-7.7) th/mm3 Sodium 147 H (136-145) meq/L Potassium 3.2 L (3.5-5.1) meq/L Chloride 110 H (98-107) meq/L BUN 32 H (7-18) mg/dL Estimated GFR 88 L (>89) mL/min POC Glucose 113 H (68-110) mg/dl Calcium 7.9 L (8.5-10.1) mg/dL Short CBC 05/13/18 Range/Units 05:46 WBC 12.5 H (4.0-11.0) th/mm3 Hgb 10.9 L (11.6-15.3) gm/dL Hct 33.2 L (35.0-46.0) % Plt Count 289 (150-450) th/mm3 BMP 05/13/18 05:46 Sodium 147 H Potassium 3.2 L Chloride 110 H Carbon Dioxide 28.6 BUN 32 H Creatinine 0.67 Calcium 7.9 L <Dino Day - 05/13/18 16:42> Abnormal lab results 05/12/18 05/13/18 05/13/18 Range/Units 18:18 00:10 05:46 WBC 12.5 H (4.0-11.0) th/mm3 RBC 3.60 L (4.00-5.30) mil/mm3 Hgb 10.9 L (11.6-15.3) gm/dL Hct 33.2 L (35.0-46.0) % Neut % (Auto) 71.2 H (16.0-70.0) % Neut # (Auto) 8.9 H (1.8-7.7) th/mm3 Band Neuts % (Manual) 7 H (0-6) % Metamyelocytes % (Man) 2 H (0-1) % Myelocytes % (Man) 2 H (0-0) % Abs Neuts (Manual) 10.1 H (1.8-7.7) th/mm3 Sodium (136-145) meq/L Potassium (3.5-5.1) meq/L Chloride (98-107) meq/L BUN (7-18) mg/dL Estimated GFR (>89) mL/min POC Glucose 127 H 115 H (68-110) mg/dl Calcium (8.5-10.1) mg/dL 05/13/18 Range/Units 05:46 WBC (4.0-11.0) th/mm3 RBC (4.00-5.30) mil/mm3 Hgb (11.6-15.3) gm/dL Hct (35.0-46.0) % Neut % (Auto) (16.0-70.0) % Neut # (Auto) (1.8-7.7) th/mm3 Band Neuts % (Manual) (0-6) % Metamyelocytes % (Man) (0-1) % Myelocytes % (Man) (0-0) % Abs Neuts (Manual) (1.8-7.7) th/mm3 Sodium 147 H (136-145) meq/L Potassium 3.2 L (3.5-5.1) meq/L Chloride 110 H (98-107) meq/L BUN 32 H (7-18) mg/dL Estimated GFR 88 L (>89) mL/min POC Glucose (68-110) mg/dl Calcium 7.9 L (8.5-10.1) mg/dL Short CBC 05/13/18 Range/Units 05:46 WBC 12.5 H (4.0-11.0) th/mm3 Hgb 10.9 L (11.6-15.3) gm/dL Hct 33.2 L (35.0-46.0) % Plt Count 289 (150-450) th/mm3 BMP 05/13/18 05:46 Sodium 147 H Potassium 3.2 L Chloride 110 H Carbon Dioxide 28.6 BUN 32 H Creatinine 0.67 Calcium 7.9 L <Abhijit Arango - 05/13/18 12:08> Physical Exam Vital signs: Vital Signs 05/12/18 17:00 05/12/18 17:30 05/12/18 18:00 Temperature Pulse Rate 79 79 79 Respiratory Rate 17 20 20 Blood Pressure 102/56 L 94/60 L 96/52 L Pulse Oximetry 93 L 96 94 L 05/12/18 18:30 05/12/18 19:00 05/12/18 19:30 Temperature Pulse Rate 78 78 80 Respiratory Rate 21 21 22 Blood Pressure 99/54 L 99/54 L 110/53 L Pulse Oximetry 94 L 94 L 95 05/12/18 19:54 05/12/18 19:55 05/12/18 20:00 Temperature 98.8 F Pulse Rate 79 80 Respiratory Rate 18 19 Blood Pressure 112/54 L Pulse Oximetry 96 95 05/12/18 20:30 05/12/18 21:00 05/12/18 21:30 Temperature Pulse Rate 84 80 76 Respiratory Rate 23 23 19 Blood Pressure 114/60 114/59 L 107/64 Pulse Oximetry 96 94 L 95 05/12/18 22:00 05/12/18 22:30 05/12/18 23:00 Temperature Pulse Rate 81 82 80 Respiratory Rate 20 19 23 Blood Pressure 110/55 L 108/65 122/61 Pulse Oximetry 94 L 94 L 94 L 05/12/18 23:30 05/13/18 00:00 05/13/18 00:30 Temperature 98.8 F Pulse Rate 79 79 72 Respiratory Rate 21 25 H 20 Blood Pressure 115/56 L 106/76 105/55 L Pulse Oximetry 97 95 95 05/13/18 00:40 05/13/18 01:00 05/13/18 01:30 Temperature Pulse Rate 71 80 79 Respiratory Rate 18 25 H 23 Blood Pressure 108/53 L 108/54 L Pulse Oximetry 96 96 05/13/18 02:00 05/13/18 02:30 05/13/18 03:00 Temperature Pulse Rate 72 75 77 Respiratory Rate 20 18 18 Blood Pressure 104/56 L 113/58 L 117/62 Pulse Oximetry 95 95 94 L 05/13/18 03:30 05/13/18 04:00 05/13/18 06:00 Temperature 98.4 F Pulse Rate 75 74 74 Respiratory Rate 19 17 Blood Pressure 111/58 L 109/56 L Pulse Oximetry 94 L 94 L 05/13/18 08:00 05/13/18 08:05 05/13/18 10:00 Temperature 98.6 F Pulse Rate 79 80 81 Respiratory Rate 17 18 Blood Pressure 113/63 Pulse Oximetry 96 05/13/18 11:36 05/13/18 12:00 05/13/18 14:00 Temperature 98.4 F Pulse Rate 66 94 H 74 Respiratory Rate 21 16 Blood Pressure 125/61 Pulse Oximetry 96 Intake & Output 05/12/18 05/13/18 05/13/18 18:59 06:59 18:59 Intake Total 250 / 250 160 / 160 300 / 300 Output Total 100 / 100 Balance 250 / 250 60 / 60 300 / 300 Weight 61.4 kg Intake: IV 150 / 150 100 / 100 300 / 300 Cleviprex Inj 25 mg In 50 ml @ 50 / 50 1 MG/HR 2 mls/hr IV.CONT TITRATE PRN Rx#:[id number] KCl 20 mEq Premix Inj 20 meq In 200 / 200 100 ml @ 50 mls/hr IV.SIG Q2H PRN Rx#:[id number] Keppra 1000 mg/100 mL Premix 100 / 100 100 / 100 100 / 100 100 ML @ 400 mls/hr IV.SIG Q12H YUKO Rx#:[id number] Oral 100 / 100 60 / 60 Output: Stool 100 / 100 Other: # Voids 4 # Incontinent Voids 4 Date of Last Bowel Movement 05/11/18 05/11/18 05/11/18 # Bowel Movements 0 0 # Incontinent Bowel Movements 1 <Dino Day K - 05/13/18 16:42> Vital Signs 05/12/18 12:00 05/12/18 12:03 05/12/18 12:30 Temperature 98.6 F Pulse Rate 78 79 81 Respiratory Rate 20 26 H 40 H Blood Pressure 91/52 L 104/55 L 97/56 L Pulse Oximetry 95 95 94 L 05/12/18 13:00 05/12/18 13:30 05/12/18 14:00 Temperature Pulse Rate 80 79 76 Respiratory Rate 22 24 24 Blood Pressure 98/50 L 97/51 L 100/55 L Pulse Oximetry 94 L 94 L 93 L 05/12/18 14:30 05/12/18 15:00 05/12/18 15:30 Temperature Pulse Rate 69 72 73 Respiratory Rate 29 H 25 H 22 Blood Pressure 110/53 L 102/51 L 111/54 L Pulse Oximetry 96 96 96 05/12/18 16:00 05/12/18 16:30 05/12/18 17:00 Temperature 98.4 F Pulse Rate 76 78 79 Respiratory Rate 20 19 17 Blood Pressure 104/54 L 109/55 L 102/56 L Pulse Oximetry 95 95 93 L 05/12/18 17:30 05/12/18 18:00 05/12/18 18:30 Temperature Pulse Rate 79 79 78 Respiratory Rate 20 20 21 Blood Pressure 94/60 L 96/52 L 99/54 L Pulse Oximetry 96 94 L 94 L 05/12/18 19:00 05/12/18 19:30 05/12/18 19:54 Temperature Pulse Rate 78 80 79 Respiratory Rate 21 22 18 Blood Pressure 99/54 L 110/53 L Pulse Oximetry 94 L 95 05/12/18 19:55 05/12/18 20:00 05/12/18 20:30 Temperature 98.8 F Pulse Rate 80 84 Respiratory Rate 19 23 Blood Pressure 112/54 L 114/60 Pulse Oximetry 96 95 96 05/12/18 21:00 05/12/18 21:30 05/12/18 22:00 Temperature Pulse Rate 80 76 81 Respiratory Rate 23 19 20 Blood Pressure 114/59 L 107/64 110/55 L Pulse Oximetry 94 L 95 94 L 05/12/18 22:30 05/12/18 23:00 05/12/18 23:30 Temperature Pulse Rate 82 80 79 Respiratory Rate 19 23 21 Blood Pressure 108/65 122/61 115/56 L Pulse Oximetry 94 L 94 L 97 05/13/18 00:00 05/13/18 00:30 05/13/18 00:40 Temperature 98.8 F Pulse Rate 79 72 71 Respiratory Rate 25 H 20 18 Blood Pressure 106/76 105/55 L Pulse Oximetry 95 95 05/13/18 01:00 05/13/18 01:30 05/13/18 02:00 Temperature Pulse Rate 80 79 72 Respiratory Rate 25 H 23 20 Blood Pressure 108/53 L 108/54 L 104/56 L Pulse Oximetry 96 96 95 05/13/18 02:30 05/13/18 03:00 05/13/18 03:30 Temperature Pulse Rate 75 77 75 Respiratory Rate 18 18 19 Blood Pressure 113/58 L 117/62 111/58 L Pulse Oximetry 95 94 L 94 L 05/13/18 04:00 05/13/18 06:00 05/13/18 08:00 Temperature 98.4 F Pulse Rate 74 74 Respiratory Rate 17 Blood Pressure 109/56 L Pulse Oximetry 94 L 96 05/13/18 08:05 05/13/18 11:36 Temperature Pulse Rate 80 66 Respiratory Rate 18 21 Blood Pressure Pulse Oximetry Intake & Output 05/12/18 05/13/18 05/13/18 18:59 06:59 18:59 Intake Total 250 / 250 160 / 160 Output Total 100 / 100 Balance 250 / 250 60 / 60 Weight 61.4 kg Intake: IV 150 / 150 100 / 100 Cleviprex Inj 25 mg In 50 ml @ 50 / 50 1 MG/HR 2 mls/hr IV.CONT TITRATE PRN Rx#:[id number] Keppra 1000 mg/100 mL Premix 100 / 100 100 / 100 100 ML @ 400 mls/hr IV.SIG Q12H YUKO Rx#:[id number] Oral 100 / 100 60 / 60 Output: Stool 100 / 100 Other: # Voids 4 # Incontinent Voids 4 Date of Last Bowel Movement 05/11/18 05/11/18 # Bowel Movements 0 0 # Incontinent Bowel Movements 1 <Dominique TysonAbhijit Paul - 05/13/18 12:08> Narrative: GENERAL: lying in bed, NAD SKIN: Warm and dry. CARDIOVASCULAR: Regular rate and rhythm. RESPIRATORY: No accessory muscle use. Clear to auscultation. Breath sounds equal bilaterally. GASTROINTESTINAL: Abdomen soft, non-tender, nondistended. Hepatic and splenic margins not palpable. MUSCULOSKELETAL: Right AKA present NEUROLOGICAL: Awake. Oriented to person and place. Follows most commands, some not. PSYCHIATRIC: Flat affect. <Abhijit Arango - 05/13/18 12:08> - Urinary Catheter Management Straight Cath placed during this visit: no <Dino Day - 05/13/18 16:42> no <Dominique TysonAbhijit Paul - 05/13/18 14:08> Assessment and Plan - Assessment (1) Catatonia associated with another mental disorder Code(s): F06.1 - Catatonic disorder due to known physiological condition Status: Acute (2) Acute respiratory failure Code(s): J96.00 - Acute respiratory failure, unspecified whether with hypoxia or hypercapnia Status: Resolved (3) Angioedema Code(s): T78.3XXA - Angioneurotic edema, initial encounter Status: Resolved (4) PRES (posterior reversible encephalopathy syndrome) Code(s): I67.83 - Posterior reversible encephalopathy syndrome Status: Acute (5) HTN (hypertension) Code(s): I10 - Essential (primary) hypertension Status: Acute (6) Seizures Code(s): R56.9 - Unspecified convulsions Status: Acute (7) Hyperlipidemia Code(s): E78.5 - Hyperlipidemia, unspecified Status: Chronic (8) Diabetes Code(s): E11.9 - Type 2 diabetes mellitus without complications Status: Chronic (9) Diarrhea Code(s): R19.7 - Diarrhea, unspecified Status: Resolved (10) Clavicle fracture Code(s): S42.009A - Fracture of unspecified part of unspecified clavicle, initial encounter for closed fracture Status: Acute (11) Nutrition, metabolism, and development symptoms Code(s): R63.8 - Other symptoms and signs concerning food and fluid intake Status: Acute <Dino Day Farideh - 05/13/18 16:42> (1) Catatonia associated with another mental disorder Code(s): F06.1 - Catatonic disorder due to known physiological condition Status: Acute (2) Acute respiratory failure Code(s): J96.00 - Acute respiratory failure, unspecified whether with hypoxia or hypercapnia Status: Resolved (3) Angioedema Code(s): T78.3XXA - Angioneurotic edema, initial encounter Status: Resolved (4) PRES (posterior reversible encephalopathy syndrome) Code(s): I67.83 - Posterior reversible encephalopathy syndrome Status: Acute (5) HTN (hypertension) Code(s): I10 - Essential (primary) hypertension Status: Acute (6) Seizures Code(s): R56.9 - Unspecified convulsions Status: Acute (7) Hyperlipidemia Code(s): E78.5 - Hyperlipidemia, unspecified Status: Chronic (8) Diabetes Code(s): E11.9 - Type 2 diabetes mellitus without complications Status: Chronic (9) Diarrhea Code(s): R19.7 - Diarrhea, unspecified Status: Resolved (10) Clavicle fracture Code(s): S42.009A - Fracture of unspecified part of unspecified clavicle, initial encounter for closed fracture Status: Acute (11) Nutrition, metabolism, and development symptoms Code(s): R63.8 - Other symptoms and signs concerning food and fluid intake Status: Acute <Abhijit Arango - 05/13/18 14:07> - Assessment and Plan 68 yo female with dementia, HTN, DM admitted with: Catatonia Medical work-up has been negative except for PRES. CBC and CK within normal limits; no signs of NMS ABG essentially normal Ammonia very slightly elevated not the source of her mental status decline LATONYA screen positive at low level RF negative RPR negative ESR normal * Stopped Lexapro and Seroquel, per discussion with Psychiatry and her up and down BPs and fever, they did not want this pt to develop NMS or serotonin syndrome * Ativan stopped due to hypotension, respiratory failure from angioedema but has been on benzos for her sedation on the vent * Psychiatry consulted, appreciate assistance * Only treatment likely to improve her depression/catatonia is ECT - ongoing discussion to make arrangements to transfer her to a facility that performs ECT. * CT abdomen/pelvis showed questionable pancreatic mass, ruled out by MRI * Normal CA-19/9, CEA and CA-125 * Manage hypertension as noted below Acute Respiratory Failure due to angioedema - resolved Intubated 05/03 - 05/11 * [facility] consulted, signed off on 05/12/18 * Duonebs Q4H * Now doing well s/p extubation PRES MRI findings suggestive of PRES Interval improvement of MRI * Neurology following, appreciate assistance * Keep BP down * Check EEG, if not improving, may consider ECT Hypertension * Due to PRES needs tighter BP control per neurology: goal SBP 110-120 * IV pushes with Hydralazine and labetalol as needed for BP control * Titrating PO meds * Hydralazine 100 mg TID * Coreg 12.5 mg BID * Isosorbide dinitrate 10 mg TIDAC * Amlodipine 10 mg daily Seizure Disorder Now with possible repeat seizure vs catalepsy from catatonia EEG with nonspecific encephalopathy MRI/MRA unremarkable except for PRES as noted LP performed 05/02/18 - chemistries / cultures normal * Neurology on board, appreciate assistance * Continue Keppra to 1000 mg IV BID, once off vent hope to change to po * Control BP as part of PRES management * Treat catatonia as above Diabetes mellitus BG at hospital goal now * Holding metformin for now * Low dose SSI * off vent, hope she eats better Hyperlipidemia * Continue home atorvastatin Diarrhea - improving C difficile negative * Most likely normal due to tube feeds and patient being NPO before tube feeds were initiated * Continue to monitor Right [id number] amputation PT/OT evaluate and treat once more able to cooperate Clavicle Fracture, right RUE neurovascularly intact, no deformity noted * Monitor clinically * WBAT RUE Fluids: no IVF Diet: pureed diabetic diet * May end up needing RD consult again; she has poor motivation to eat due to depression/catatonia GI: Famotidine Docusate serum/senna 1 tablet twice daily for bowel regimen DVT: Heparin BID <Dominique TysonAbhijit J - 05/13/18 14:08> - Attending Attestation The exam, history, and the medical decision-making described in the above note were completed with the assistance of the resident physician. I reviewed and agree with the findings presented. I attest that I had a [id number] encounter with the patient on the same day, and personally performed and documented my assessment and findings in the medical record. Seen and examined with residents Chris Jay and Dominique this AM. She was able to answer her name and knew that she was at [place]. some questions such as they year she does not answer. she sometimes only stares. She will follow commands, but with poor motor effort. she does have trouble stopping some commands. when asked to wiggler her toes she would do it, but then did not stop when asked. She was agreeable to certain things such as ECT. When talking about how it could help with her depression she actually voiced affirmation of wanting to try. Neurology ordering EEG and per documentation after that if no concerns, would move forward with pursuit of ECT. Changing to PO Arnie and is now on oral anti hypertensive therapy only. will transfer to floor <Dino Day Farideh - 05/13/18 16:42> <Abhijit Arango J - Last Filed: 05/13/18 14:07> (3) Angioedema Qualifiers: Encounter type: initial encounter Qualified Code(s): T78.3XXA - Angioneurotic edema, initial encounter (5) HTN (hypertension) Qualifiers: Hypertension type: other secondary hypertension Qualified Code(s): I15.8 - Other secondary hypertension (7) Hyperlipidemia Qualifiers: Hyperlipidemia type: pure hypercholesterolemia Qualified Code(s): E78.00 - Pure hypercholesterolemia, unspecified; E78.0 - Pure hypercholesterolemia (8) Diabetes Qualifiers: Diabetes mellitus type: type 2 Diabetes mellitus employment programs analyst insulin use: unspecified employment programs analyst insulin use status Diabetes mellitus complication status : with circulatory complication Diabetes mellitus complication detail: with peripheral angiopathy without gangrene Qualified Code(s): E11.51 - Type 2 diabetes mellitus with diabetic peripheral angiopathy without gangrene (10) Clavicle fracture Qualifiers: Encounter type: subsequent encounter Fracture type: closed Laterality: right <ShayDino K - Last Filed: 05/13/18 16:42> (3) Angioedema Qualifiers: Encounter type: initial encounter Qualified Code(s): T78.3XXA - Angioneurotic edema, initial encounter (5) HTN (hypertension) Qualifiers: Hypertension type: other secondary hypertension Qualified Code(s): I15.8 - Other secondary hypertension (7) Hyperlipidemia Qualifiers: Hyperlipidemia type: pure hypercholesterolemia Qualified Code(s): E78.00 - Pure hypercholesterolemia, unspecified; E78.0 - Pure hypercholesterolemia (8) Diabetes Qualifiers: Diabetes mellitus type: type 2 Diabetes mellitus employment programs analyst insulin use: unspecified employment programs analyst insulin use status Diabetes mellitus complication status : with circulatory complication Diabetes mellitus complication detail: with peripheral angiopathy without gangrene Qualified Code(s): E11.51 - Type 2 diabetes mellitus with diabetic peripheral angiopathy without gangrene (10) Clavicle fracture Qualifiers: Encounter type: subsequent encounter Fracture type: closed Laterality: right <Abhijit Arango - Last Filed: 05/13/18 14:07> (3) Angioedema Qualifiers: Encounter type: initial encounter Qualified Code(s): T78.3XXA - Angioneurotic edema, initial encounter (5) HTN (hypertension) Qualifiers: Hypertension type: other secondary hypertension Qualified Code(s): I15.8 - Other secondary hypertension (7) Hyperlipidemia Qualifiers: Hyperlipidemia type: pure hypercholesterolemia Qualified Code(s): E78.00 - Pure hypercholesterolemia, unspecified; E78.0 - Pure hypercholesterolemia (8) Diabetes Qualifiers: Diabetes mellitus type: type 2 Diabetes mellitus employment programs analyst insulin use: unspecified half-way insulin use status Diabetes mellitus complication status : with circulatory complication Diabetes mellitus complication detail: with peripheral angiopathy without gangrene Qualified Code(s): E11.51 - Type 2 diabetes mellitus with diabetic peripheral angiopathy without gangrene (10) Clavicle fracture Qualifiers: Encounter type: subsequent encounter Fracture type: closed Laterality: right <Dino Day K - Last Filed: 05/13/18 16:42> (3) Angioedema Qualifiers: Encounter type: initial encounter Qualified Code(s): T78.3XXA - Angioneurotic edema, initial encounter (5) HTN (hypertension) Qualifiers: Hypertension type: other secondary hypertension Qualified Code(s): I15.8 - Other secondary hypertension (7) Hyperlipidemia Qualifiers: Hyperlipidemia type: pure hypercholesterolemia Qualified Code(s): E78.00 - Pure hypercholesterolemia, unspecified; E78.0 - Pure hypercholesterolemia (8) Diabetes Qualifiers: Diabetes mellitus type: type 2 Diabetes mellitus employment programs analyst insulin use: unspecified employment programs analyst insulin use status Diabetes mellitus complication status : with circulatory complication Diabetes mellitus complication detail: with peripheral angiopathy without gangrene Qualified Code(s): E11.51 - Type 2 diabetes mellitus with diabetic peripheral angiopathy without gangrene (10) Clavicle fracture Qualifiers: Encounter type: subsequent encounter Fracture type: closed Laterality: right
--- NOTE | 2018-05-13 16:15 | P.DIET ---
Nutritional Evaluation Type of nutrition evaluation: follow-up Nutrition consult regarding: Tube Feeding Nutrition screening: MDC (TF'ing) Screening comments: 05/01 MDC for TF'ing 05/03 MDC for TF'ing Subjective Subjective Comments: Pt awake but does not respond much. 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%) % IBW: 113 (IBW = 106lb (-12%)) Body Weight Used for Calculations: Actual (61.6kg) Energy Needs - Lower Range (kCal/kg): 25 Energy Needs - Upper Range (kCal/kg): 30 Lower Limit kCal/kg (kCals): 1,540 Upper Limit kCal/kg (kCals): 1,848 Lower Limit Protein Factor (Grams per Kg): 1.2 Upper Limit Protein Factor (Grams per Kg): 1.4 Lower Protein Needs (Protein): 74 Upper Protein Needs (Protein): 86 Dietitian Reviewed in Medical Record: Curent medications, Intake & Output, Labs , Medical history, Tube feeding Diet Order: 1200 ADA Oral Diet Intake Amount: Poor <50% Speech Therapy Recommendations: Yes (pureed, thin liquids) Objective Comments: PMH: dementia, DM, high cholesterol, hx of stroke, HTN, non-hodgkin lymphoma, AKA R lower extremity Meds: novolog insulin sliding scale, thiamine Labs: BUN 32, POC glucose 127 102 113 LBM 05/11/18 Assessment Assessment: Pt remains currently at nutritional risk r/t AMS and need for TF'ing. Pt extubated on 05/11/18 w/ TF on hold now. ST notes reviewed, pt able to tolerate pureed foods and thin liquids. Spoke w/ MORRO Barrett about pt during RD visit. Per RN, pt was put on [facility] soft diet this a.m. but was not able to chew effectively , now pt is on pureed [address] to recommend Ensure Enlive TID as PO supplement for additional nutrition. Continue to review ST swallow evals. Continue to monitor PO and supplement intake. Labs reviewed, dietitian following. Recommendations: 1. ST notes reviewed, pt able to tolerate pureed foods and thin liquids 2. RD to recommend Ensure Enlive TID as PO supplement for additional nutrition 3. Continue to review ST swallow evals 4. Continue to monitor PO and supplement intake 5. Dietitian following Dietitian to Monitor: Lab values, Glucose level, Supplement acceptance, Intake & Output, Diet tolerance, Weight change, PO Intake, Swallow recommendations, Medical course
[2018-05-13 19:31] LABS: ABG Base Excess 2.4 mmol/L (-2-2); ABG PCO2 34 mmHg (38-42); ABG PO2 67 mmHG (61-120)
--- NOTE | 2018-05-13 22:03 | MG ---
cc: Kyle Todd MD DATE OF STUDY: 05/13/2018 ELECTROENCEPHALOGRAM RECORD NUMBER: [id number] DESCRIPTION: 4-5 Hz activity with admixed 2-3 Hz delta activity occurring, frequent eye opening and blink artifact. 20-50 microvolts. Some driving with photic stimulation, at times desynchronized EEG, poly frequencies, very tiny sharp transients. Single-lead EKG showing sinus rhythm. INTERPRETATION: [id number] encephalopathy. Clinical correlation. Kyle Todd MD MG/connor , 09:12 PM , 09:18 PM
[2018-05-14] MEDS: levETIRAcetam 1000mg/100mL Inj 100 ML IV.SIG SCH (00:13)
[2018-05-14] MEDS: Artificial Tears Opth Drops 15 ML Bottle EACH EYE SCH ×3 (00:14→19:58)
[2018-05-14] MEDS: Oral Hygiene Kit OROPHARYNG SCH ×4 (00:16→19:58)
[2018-05-14] MEDS: Insulin NovoLOG Aspart Correctional Sugar Inj SQ SCH ×4 (00:42→19:58)
[2018-05-14 06:22] LABS: Hematocrit 33.3 % (35.0-46.0); Hemoglobin 11.1 gm/dL (11.6-15.3); Mean Corpuscular HGB Conc 33.4 % (32.0-36.0); Mean Corpuscular Hemoglobin 30.8 pg (27.0-34.0); Mean Corpuscular Volume 92.2 fL (80.0-100.0); Mean Platelet Volume 9.1 fL (7.0-11.0); Platelet Count 275 th/mm3 (150-450); Red Blood Count 3.62 mil/mm3 (4.00-5.30); Red Cell Distribution Width 13.8 % (11.6-17.2); White Blood Count 11.9 th/mm3 (4.0-11.0)
[2018-05-14 06:45] LABS: Anion Gap 7 meq/L (5-15); Blood Urea Nitrogen 26 mg/dL (7-18); Calcium 8.1 mg/dL (8.5-10.1); Carbon Dioxide 26.9 meq/L (21.0-32.0); Chloride 109 meq/L (98-107); Glomerular Filtration Rate Greater Than 89 mL/min (>89); Glucose,Random 121 mg/dL (74-106); Sodium 143 meq/L (136-145)
--- NOTE | 2018-05-14 07:50 | P.PNNEU ---
Subjective Active Medications: Active Medications Acetaminophen (Tylenol Liq) 650 mg NG/OG Q6H PRN PRN Reason: PAIN 1-10 AND/OR FEVER >101F Al Hydroxide/Mg Hydroxide (Milk Of Magnesia Liq) 30 ml PO Q12H PRN PRN Reason: Mild Constipation Albuterol (Albuterol Neb (Prn)) 2.5 mg NEB Q2HR NEB PRN PRN Reason: DYSPNEA Amlodipine Besylate (Norvasc) 10 mg PO DAILY [facility] Last Admin: 05/13/18 09:34 Dose: 10 mg Artificial Tears (Tears Naturale Opth Drops) 1 drop EACH EYE Q8H [facility] Last Admin: 05/14/18 00:14 Dose: Not Given Aspirin (Aspirin Chew) 81 mg NG/OG DAILY [facility] Last Admin: 05/13/18 09:33 Dose: 81 mg Atorvastatin Calcium (Lipitor) 40 mg NG/OG HS [facility] Last Admin: 05/13/18 20:22 Dose: 40 mg Bisacodyl (Dulcolax Supp) 10 mg RECTAL DAILY PRN PRN Reason: SEVERE CONSITIPATION Carvedilol (Coreg) 12.5 mg PO BID [facility] Last Admin: 05/13/18 20:22 Dose: 12.5 mg Chlorhexidine Gluconate (Peridex 0.12% Oral Kit) 15 ml OROPHARYNG BID@0800, 2000 [facility] Last Admin: 05/13/18 20:22 Dose: Not Given Dextrose (D50w Vial) 50 ml IV.PUSH UNSCH PRN PRN Reason: PER HYPOGLYCEMIA PROTOCOL Famotidine (Pepcid Pf Inj) 20 mg IV.PUSH Q12HR [facility] Last Admin: 05/13/18 20:22 Dose: 20 mg Gabapentin (Neurontin) 600 mg PO BID [facility] Last Admin: 05/01/18 08:56 Dose: Not Given Glucagon (Glucagon Inj) 1 mg OTHER PRN PRN PRN Reason: for Hypoglycemia Protocol Heparin Sodium (Porcine) (Heparin Inj) 5,000 units SQ Q12HR [facility] Last Admin: 05/13/18 20:22 Dose: 5,000 units Hydralazine HCl (Apresoline) 25 mg NG/OG QID PRN PRN Reason: SEE LABEL COMMENTS Last Admin: 05/10/18 01:26 Dose: 25 mg Hydralazine HCl (Apresoline Inj) 10 mg IV.PUSH Q1H PRN PRN Reason: sbp > 140 Last Admin: 05/08/18 22:04 Dose: 10 mg Hydralazine HCl (Apresoline) 100 mg PO TID [facility] Last Admin: 05/13/18 17:46 Dose: 100 mg Levetiracetam (Keppra 1000 Mg/100 Ml Premix) 100 mls @ 400 mls/hr IV.SIG Q12H [facility] Last Infusion: 05/14/18 01:13 Dose: Infused Fentanyl (Fentanyl 10 Mcg/Ml Premix Drip) 2,500 mcg in 250 mls @ 5 mls/hr IV.SIG TITRATE PRN; Protocol PRN Reason: Per Protocol Magnesium Sulfate 4 gm/ Sodium (Chloride) 100 mls @ 50 mls/hr IV.SIG UNSCH PRN PRN Reason: For Magnesium 0.9 - 1.1 mg/dL Magnesium Sulfate 2 gm/ Sodium (Chloride) 100 mls @ 50 mls/hr IV.SIG UNSCH PRN PRN Reason: For Magnesium 1.2 - 1.6 mg/dL Potassium Chloride (Kcl 40 Meq Premix Inj) 40 meq in 100 mls @ 25 mls/hr IV.SIG Q2H PRN PRN Reason: For Potassium 2.8 - 3.2 mEq/L Potassium Chloride (Kcl 20 Meq Premix Inj) 20 meq in 100 mls @ 50 mls/hr IV.SIG Q2H PRN PRN Reason: For Potassium 3.3 - 3.5 mEq/L Last Admin: 05/13/18 18:38 Dose: 50 mls/hr Potassium Chloride (Kcl 40 Meq Premix Inj) 40 meq in 100 mls @ 25 mls/hr IV.SIG UNSCH PRN PRN Reason: For Potassium 3.3 - 3.5 mEq/L Potassium Chloride (Kcl 20 Meq Premix Inj) 20 meq in 100 mls @ 50 mls/hr IV.SIG Q2H PRN PRN Reason: For Potassium 2.8 - 3.2 mEq/L Last Infusion: 05/09/18 09:54 Dose: Infused Potassium Phosphate 30 mmol/ (Sodium Chloride) 260 mls @ 42 mls/hr IV.SIG UNSCH PRN PRN Reason: SEE LABEL COMMENTS Sodium Phosphate 30 mmol/ (Sodium Chloride) 260 mls @ 42 mls/hr IV.SIG UNSCH PRN PRN Reason: For Phosphorus < 2.5 mg/dL Clevidipine (Cleviprex Inj) 25 mg in 50 mls @ 2 mls/hr IV.CONT TITRATE PRN; Protocol PRN Reason: Per protocol Last Titration: 05/12/18 08:57 Dose: Infused Midazolam HCl (Versed Inj) 100 mg in 100 mls @ 1 mls/hr IV.CONT TITRATE PRN; Protocol PRN Reason: See protocol Last Titration: 05/08/18 09:37 Dose: 0 mg/hr, 0 mls/hr Insulin Aspart (Novolog Insulin Correctional Sugar Inj) 0 unit SQ Q6HR [facility]; Protocol Last Admin: 05/14/18 05:25 Dose: Not Given Insulin Detemir (Levemir Inj) 5 unit SQ BID [facility] Last Admin: 05/13/18 20:23 Dose: 5 unit Isosorbide Dinitrate (Isordil) 10 mg PO TIDAC [facility] Last Admin: 05/13/18 17:46 Dose: 10 mg Labetalol HCl (Trandate Inj) 10 mg IV.PUSH Q1H PRN PRN Reason: Sbp>140, Dbp>90, Hr>65 Last Admin: 05/10/18 23:29 Dose: 10 mg Lactulose (Lactulose Liq) 30 ml PO DAILY PRN PRN Reason: SEVERE CONSITIPATION Magnesium Oxide (Mag-Ox) 800 mg PO UNSCH PRN PRN Reason: For Magnesium 1.2 - 1.6 mg/dL Miscellaneous Medication () 1 each OROPHARYNG 0000,0400,1200,1600 [facility] Last Admin: 05/14/18 05:25 Dose: Not Given Ondansetron HCl (Zofran Inj) 4 mg IV.PUSH Q6H PRN PRN Reason: NAUSEA Potassium Bicarb/Potassium Chloride (K-Lyte Cl Eff) 50 meq PO UNSCH PRN PRN Reason: For Potassium 3.3 - 3.5 mEq/L Last Admin: 05/09/18 09:12 Dose: 50 meq Potassium Phosphate (K-Phos Original) 2,000 mg PO Q4H PRN PRN Reason: Phosphorus Less Than 2.5 mg/dL Potassium Phosphate (K-Phos Original) 2,000 mg PO UNSCH PRN PRN Reason: SEE LABEL COMMENTS Senna/Docusate Sodium (Aleah-Colace) 1 tab PO BID [facility] Last Admin: 05/13/18 20:23 Dose: 1 tab Sennosides (Senokot) 17.2 mg PO Q12H PRN PRN Reason: Moderate Constipation Sodium Chloride (Ns Flush) 2 ml IV.FLUSH BID [facility] Last Admin: 05/13/18 20:22 Dose: 2 ml Sodium Chloride (Ns Flush) 2 ml IV.FLUSH UNSCH PRN PRN Reason: FLUSH AFTER USING IV ACCESS Last Admin: 05/06/18 08:32 Dose: 2 ml Thiamine HCl (Thiamine Inj) 100 mg IM DAILY [facility] Last Admin: 05/13/18 09:32 Dose: 100 mg Allergies/Adverse Reactions: Allergies Allergy/AdvReac Type Severity Reaction Status Date / Time JACE Inhibitors Allergy Swelling Verified 05/06/18 12:26 of Lip/Tongue/Throat iodine Allergy Swelling Verified 04/19/18 15:50 Physical Exam Vital signs: Vital Signs 05/13/18 08:00 05/13/18 08:05 05/13/18 08:30 Temperature 98.6 F Pulse Rate 79 80 77 Respiratory Rate 17 18 24 Blood Pressure 113/63 122/68 Pulse Oximetry 96 94 L 05/13/18 09:00 05/13/18 09:30 05/13/18 10:00 Temperature Pulse Rate 72 80 81 Respiratory Rate 20 26 H 19 Blood Pressure 125/60 124/75 130/63 Pulse Oximetry 96 95 94 L 05/13/18 10:30 05/13/18 11:00 05/13/18 11:30 Temperature Pulse Rate 79 76 77 Respiratory Rate 31 H 17 18 Blood Pressure 132/64 136/70 135/74 Pulse Oximetry 94 L 95 96 05/13/18 11:36 05/13/18 12:00 05/13/18 12:33 Temperature 98.4 F Pulse Rate 66 74 79 Respiratory Rate 21 16 23 Blood Pressure 125/61 151/69 H Pulse Oximetry 96 98 05/13/18 13:00 05/13/18 14:00 05/13/18 15:00 Temperature Pulse Rate 76 75 75 Respiratory Rate 19 26 H 20 Blood Pressure 126/58 L 111/56 L 115/67 Pulse Oximetry 95 96 97 05/13/18 16:00 05/13/18 17:00 05/13/18 18:00 Temperature 98.3 F Pulse Rate 79 80 79 Respiratory Rate 21 27 H 41 H Blood Pressure 107/54 L 115/58 L 108/57 L Pulse Oximetry 95 96 94 L 05/13/18 19:00 05/13/18 20:00 05/14/18 00:00 Temperature 98.2 F 98.4 F Pulse Rate 80 72 77 Respiratory Rate 27 H 18 18 Blood Pressure 101/57 L 119/58 L 105/57 L Pulse Oximetry 94 L 94 L 94 L 05/14/18 00:37 05/14/18 04:00 05/14/18 04:29 Temperature 98.1 F Pulse Rate 76 Respiratory Rate 18 18 Blood Pressure 138/76 Pulse Oximetry 97 93 L Intake & Output 05/13/18 05/14/18 05/14/18 18:59 06:59 18:59 Intake Total 880 / 880 100 / 100 Balance 880 / 880 100 / 100 Weight 61.4 kg Intake: IV 400 / 400 100 / 100 KCl 20 mEq Premix Inj 20 meq In 300 / 300 100 ml @ 50 mls/hr IV.SIG Q2H PRN Rx#:[id number] Keppra 1000 mg/100 mL Premix 100 / 100 100 / 100 100 ML @ 400 mls/hr IV.SIG Q12H [facility] Rx#:[id number] Oral 480 / 480 Other: # Voids 2 # Incontinent Voids 3 Date of Last Bowel Movement 05/11/18 05/11/18 # Bowel Movements 0 Narrative: eyes open not folowing commands now - Urinary Catheter Management Straight Cath placed during this visit: no Objective Laboratory Results - last 24 hr 05/13/18 05/13/18 05/13/18 05:46 12:09 17:50 WBC RBC Hgb Hct MCV MCH MCHC RDW Plt Count MPV WBC Differential Manual diff final Seg Neuts % (Manual) 70 Band Neuts % (Manual) 7 H Lymphocytes % (Manual) 13 Monocytes % (Manual) 5 Eosinophils % (Manual) 1 Metamyelocytes % (Man) 2 H Myelocytes % (Man) 2 H Abs Neuts (Manual) 10.1 H Platelet Estimate Normal Platelet Morphology Normal Puncture Site Patient Temperature O2 Saturation ABG pH ABG pCO2 ABG pO2 ABG HCO3 ABG O2 Content ABG Base Excess ABG Methemoglobin Jorge Test Hemoglobin Carboxyhemoglobin O2 Delivery Device Liter Flow Critical Value Sodium Potassium Chloride Carbon Dioxide Anion Gap BUN Creatinine Estimated GFR POC Glucose 113 H 145 H Random Glucose Calcium 05/13/18 05/13/18 05/14/18 19:19 20:15 00:16 WBC RBC Hgb Hct MCV MCH MCHC RDW Plt Count MPV WBC Differential Seg Neuts % (Manual) Band Neuts % (Manual) Lymphocytes % (Manual) Monocytes % (Manual) Eosinophils % (Manual) Metamyelocytes % (Man) Myelocytes % (Man) Abs Neuts (Manual) Platelet Estimate Platelet Morphology Puncture Site Right radial Patient Temperature 98.6 O2 Saturation 91 ABG pH 7.49 H ABG pCO2 34 L ABG pO2 67 ABG HCO3 26 ABG O2 Content 14.8 ABG Base Excess 2.4 H ABG Methemoglobin 1.6 Jorge Test Present Hemoglobin 11.6 L Carboxyhemoglobin 0.8 O2 Delivery Device Nasal cannula Liter Flow 3.00 Critical Value No Sodium Potassium Chloride Carbon Dioxide Anion Gap BUN Creatinine Estimated GFR POC Glucose 175 H 131 H Random Glucose Calcium 05/14/18 05/14/18 05/14/18 05:01 05:01 05:24 WBC 11.9 H RBC 3.62 L Hgb 11.1 L Hct 33.3 L MCV 92.2 MCH 30.8 MCHC 33.4 RDW 13.8 Plt Count 275 MPV 9.1 WBC Differential Seg Neuts % (Manual) Band Neuts % (Manual) Lymphocytes % (Manual) Monocytes % (Manual) Eosinophils % (Manual) Metamyelocytes % (Man) Myelocytes % (Man) Abs Neuts (Manual) Platelet Estimate Platelet Morphology Puncture Site Patient Temperature O2 Saturation ABG pH ABG pCO2 ABG pO2 ABG HCO3 ABG O2 Content ABG Base Excess ABG Methemoglobin Jorge Test Hemoglobin Carboxyhemoglobin O2 Delivery Device Liter Flow Critical Value Sodium 143 Potassium 4.0 D Chloride 109 H Carbon Dioxide 26.9 Anion Gap 7 BUN 26 H Creatinine 0.63 Estimated GFR Greater than 89 POC Glucose 133 H Random Glucose 121 H Calcium 8.1 L Microbiology 05/09/18 11:36 Aerobic Blood Culture - Preliminary Blood - Peripheral No growth in 4 days Anaerobic Blood Culture - Preliminary No growth in 4 days 05/09/18 11:30 Aerobic Blood Culture - Preliminary Blood - Peripheral No growth in 4 days Anaerobic Blood Culture - Preliminary No growth in 4 days Review/Management - Diagnosis (1) Hypertensive encephalopathy Code(s): I67.4 - Hypertensive encephalopathy Status: Acute Current Visit: Yes (2) HTN (hypertension) Code(s): I10 - Essential (primary) hypertension Status: Acute Current Visit : No (3) Dementia Code(s): F03.90 - Unspecified dementia without behavioral disturbance Status: Acute Current Visit: No (4) Seizures Code(s): R56.9 - Unspecified convulsions Status: Acute Current Visit: No (5) Anxiety Code(s): F41.9 - Anxiety disorder, unspecified Status: Acute Current Visit: No - Review/Management Plan: 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 may have element of PRES as noted in prior notes recs check csf studies-pending bp control Thiamine supplementation follow exam Dr. Mehta to follow in a.m. 05/01/18 mri loops like PRES mra and mrv and labs all neg keep bp 110-120/ LP today eeg neg on keppra --------- 05/02/18 looks a little better mri repeat yest no change pres bp better keep 110-120/ await LP needs done today!! on keppra 05/03/18 mri no change eeg neg LP neg bp better check ct abd and pelvis and chest paraneo 05/06/18 looks so much better neurowise check paraneoplastic labs PRES clinically better thiamine pend will recheck mri in few days keep bp down 110-120/ ct chest and abd ok 05/07/18 sedated i dw med team pt looked to have early changes of pres 2 days after admit and bp initially 186/ in er the Question of which came first the pres or the catatonia ? i think overall the pres likley caused the ms changes as bp came down she is so much better yest i dw nurse hold sedative should awaken she was on seroquel and lexapro i believe b4 admit and nms considered with drastic improvement clinically would not rec ect need to inc po meds for bp control i see no major hypotension documented when not on iv meds 05/08/18 will need to keep off sedatives i dw nurse keep bp 110-120/ possible extubation today as above i am not convinced she had catatonia b4 pres started as bp taken in er day b4 ms changes in 180/ range regardless with ms improvement with rx of bp i am not recommending ect at this time 05/09/17 130-170/ we need to keep bp 110-120 at all times more awake off sedatives working on extubation 05/10/18 would like bp 110-120/ recheck mri looking well overall await extubation when can will fu sunday call neuro human resources operations manager if any ? 05/13/18 better than b4 intubation but stillslow to respond mri is better and looks like small old smattering of infarcts left high posterior cortex pres improved keep bp down will check eeg if that looks ok and not improving ms garcia daily consider ect us echo neg check holter old cva 05/14/18 not doing much today as far as verbally abg nl eeg slow will recheck mri and if pres continues abated ok for ect check spep daughter states was nl mentally 2 day prior to admission when took narcotics seemed to start ms change holter pend daughter knows of old left cva yrs ago (2) HTN (hypertension) Qualifiers: Hypertension type: other secondary hypertension Qualified Code(s): I15.8 - Other secondary hypertension
[2018-05-14] MEDS: amLODIPine 10 MG Tablet PO SCH (09:51)
[2018-05-14] MEDS: Senna/Docusate Sodium 8.6/50 MG Tablet PO SCH ×2 (09:51→23:53)
[2018-05-14] MEDS: hydrALAZINE 25 MG Tablet PO SCH ×3 (09:51→18:48)
[2018-05-14] MEDS: Famotidine PF Inj 20 MG/2 ML Vial IV.PUSH SCH ×2 (09:51→23:54)
[2018-05-14] MEDS: Carvedilol 12.5 MG Tablet PO SCH ×2 (09:51→23:52)
[2018-05-14] MEDS: Heparin - SQ 10,000 UNITS/ML Vial SQ SCH ×2 (09:52→23:53)
[2018-05-14] MEDS: Chlorhexidine 0.12% Oral Kit 15 ML UDC OROPHARYNG SCH (09:58)
[2018-05-14] MEDS: Insulin Detemir Inj 1,000 UNIT/10 ML Vial SQ SCH ×2 (11:09→23:53)
--- NOTE | 2018-05-14 11:14 | MR ---
EXAM DATE: 05/14/2018 10:51 AM EST AGE/SEX: 68 years / Female INDICATIONS: Altered mental status. CLINICAL DATA: This is the patient's subsequent encounter. Patient reports that signs and symptoms h ave been present for 2 weeks and indicates a pain score of Nonresponsive. MEDICAL/SURGICAL HISTORY: Stroke. Lymphoma. . right BKA, wrist surgery COMPARISON: [facility] [place], MR HEAD W & W/O CONTRAST, 04/26/2018. . TECHNIQUE: Multiplanar, multisequence examination of the brain was performed without contrast. FINDINGS: Cerebrum: There is no significant change in the extensive periventricular and subcortical white anika er small vessel ischemic changes bilaterally. Diffuse cerebral atrophy is stable. No acute infarct is noted. No acute hemorrhage is noted. The previously noted edema involving the bilateral parietal, te mporal and occipital lobes has resolved. Scattered old lacunar infarcts are stable. White Matter: No significant signal abnormalities are seen in the white matter. Posterior Fossa: The cerebellum and brainstem are intact. The 4th ventricle is midline. The cerebel lopontine angle is unremarkable. The cerebellar tonsils are normal in position. Diffusion Imaging: No focal areas of restricted diffusion are seen. No evidence of acute infarction . Extracranial: The visualized portions of the orbits are unremarkable. Mucosal thickening involving t he sphenoid sinuses is noted. Fluid is noted within the mastoid air cells bilaterally. CONCLUSION: 1. No significant change in the extensive periventricular and subcortical white matter small vessel ischemic changes bilaterally. 2. Diffuse cerebral atrophy is stable. 3. No acute infarct, acute hemorrhage or midline shift. 4. The previously noted edema involving the bilateral parietal, temporal and occipital lobes has res olved. 5. Scattered old lacunar infarcts are stable. Electronically signed by: César Jimenez MD Board Certified Radiologist 05/14/2018 11:12 AM EST
--- NOTE | 2018-05-14 12:50 | P.PNFP ---
Subjective Interval history: Today she nods and says yes, she follows commands and will stop commands when asked as well. cannot offer information. seems to know what she wants to say but cant get words out. Results - Labs Result diagrams: 05/14/18 05:01 05/14/18 05:01 Abnormal lab results 05/13/18 05/13/18 05/13/18 Range/Units 17:50 19:19 20:15 WBC (4.0-11.0) th/mm3 RBC (4.00-5.30) mil/mm3 Hgb (11.6-15.3) gm/dL Hct (35.0-46.0) % ABG pH 7.49 H (7.380-7.420) ABG pCO2 34 L (38-42) mmHg ABG Base Excess 2.4 H (-2-2) mmol/L Hemoglobin 11.6 L (12.0-16.0) G/DL Chloride (98-107) meq/L BUN (7-18) mg/dL POC Glucose 145 H 175 H (68-110) mg/dl Random Glucose (74-106) mg/dL Calcium (8.5-10.1) mg/dL Total Protein (PEP) (6.4-8.2) gm/dL 05/14/18 05/14/18 05/14/18 Range/Units 00:16 05:01 05:01 WBC 11.9 H (4.0-11.0) th/mm3 RBC 3.62 L (4.00-5.30) mil/mm3 Hgb 11.1 L (11.6-15.3) gm/dL Hct 33.3 L (35.0-46.0) % ABG pH (7.380-7.420) ABG pCO2 (38-42) mmHg ABG Base Excess (-2-2) mmol/L Hemoglobin (12.0-16.0) G/DL Chloride 109 H (98-107) meq/L BUN 26 H (7-18) mg/dL POC Glucose 131 H (68-110) mg/dl Random Glucose 121 H (74-106) mg/dL Calcium 8.1 L (8.5-10.1) mg/dL Total Protein (PEP) (6.4-8.2) gm/dL 05/14/18 05/14/18 Range/Units 05:24 08:58 WBC (4.0-11.0) th/mm3 RBC (4.00-5.30) mil/mm3 Hgb (11.6-15.3) gm/dL Hct (35.0-46.0) % ABG pH (7.380-7.420) ABG pCO2 (38-42) mmHg ABG Base Excess (-2-2) mmol/L Hemoglobin (12.0-16.0) G/DL Chloride (98-107) meq/L BUN (7-18) mg/dL POC Glucose 133 H (68-110) mg/dl Random Glucose (74-106) mg/dL Calcium (8.5-10.1) mg/dL Total Protein (PEP) 5.1 L (6.4-8.2) gm/dL Short CBC 05/14/18 Range/Units 05:01 WBC 11.9 H (4.0-11.0) th/mm3 Hgb 11.1 L (11.6-15.3) gm/dL Hct 33.3 L (35.0-46.0) % Plt Count 275 (150-450) th/mm3 BMP 05/14/18 05:01 Sodium 143 Potassium 4.0 D Chloride 109 H Carbon Dioxide 26.9 BUN 26 H Creatinine 0.63 Calcium 8.1 L - Imaging Impressions Head MRI 05/14/18 00:00 CONCLUSION: 1. No significant change in the extensive periventricular and subcortical white matter small vessel ischemic changes bilaterally. 2. Diffuse cerebral atrophy is stable. 3. No acute infarct, acute hemorrhage or midline shift. 4. The previously noted edema involving the bilateral parietal, temporal and occipital lobes has resolved. 5. Scattered old lacunar infarcts are stable. Physical Exam Vital signs: Vital Signs 05/13/18 13:00 05/13/18 14:00 05/13/18 15:00 Temperature Pulse Rate 76 75 75 Respiratory Rate 19 26 H 20 Blood Pressure 126/58 L 111/56 L 115/67 Pulse Oximetry 95 96 97 05/13/18 16:00 05/13/18 17:00 05/13/18 18:00 Temperature 98.3 F Pulse Rate 79 80 79 Respiratory Rate 21 27 H 41 H Blood Pressure 107/54 L 115/58 L 108/57 L Pulse Oximetry 95 96 94 L 05/13/18 19:00 05/13/18 20:00 05/14/18 00:00 Temperature 98.2 F 98.4 F Pulse Rate 80 72 77 Respiratory Rate 27 H 18 18 Blood Pressure 101/57 L 119/58 L 105/57 L Pulse Oximetry 94 L 94 L 94 L 05/14/18 00:37 05/14/18 04:00 05/14/18 04:29 Temperature 98.1 F Pulse Rate 76 Respiratory Rate 18 18 Blood Pressure 138/76 Pulse Oximetry 97 93 L 05/14/18 08:00 05/14/18 10:27 05/14/18 12:00 Temperature 97.9 F 97.4 F L Pulse Rate 67 79 Respiratory Rate 16 20 Blood Pressure 173/72 H 143/65 H Pulse Oximetry 96 94 L 95 Intake & Output 05/13/18 05/14/18 05/14/18 18:59 06:59 18:59 Intake Total 880 / 880 100 / 100 Balance 880 / 880 100 / 100 Weight 61.4 kg Intake: IV 400 / 400 100 / 100 KCl 20 mEq Premix Inj 20 meq In 300 / 300 100 ml @ 50 mls/hr IV.SIG Q2H PRN Rx#:[id number] Keppra 1000 mg/100 mL Premix 100 / 100 100 / 100 100 ML @ 400 mls/hr IV.SIG Q12H [facility] Rx#:[id number] Oral 480 / 480 Other: # Voids 2 # Incontinent Voids 3 1 Date of Last Bowel Movement 05/11/18 05/11/18 # Bowel Movements 0 - Constitutional no acute distress, cooperative Comments: sleeping in bed but easily arousable. - Routine HEENT Exam Head: Present: normocephalic, atraumatic - Routine Neck Exam Present: supple, full ROM - Routine Respiratory Exam Present: CTA bilaterally. Absent: accessory muscle use, wheezes, crackles - Routine Cardiovascular Exam Present: RRR, S1, S2 - Routine Abdominal Exam Present: soft, normoactive bowel sounds - Routine Extremities Exam Absent: cyanosis, clubbing, edema Comments: R AKA - Routine Skin Exam Present: intact, dry. Absent: cyanosis, erythema - Routine Neurological Exam Present: alert. Absent: oriented X3 follows commands, wiggles fingers and toes. makes eye contact, appears engaged without being verbal. 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 - Routine Psychiatric Exam Present: unable to assess - Urinary Catheter Management Straight Cath placed during this visit: no Assessment and Plan - Assessment (1) Catatonia associated with another mental disorder Code(s): F06.1 - Catatonic disorder due to known physiological condition Status: Acute (2) Acute respiratory failure Code(s): J96.00 - Acute respiratory failure, unspecified whether with hypoxia or hypercapnia Status: Resolved (3) Angioedema Code(s): T78.3XXA - Angioneurotic edema, initial encounter Status: Resolved (4) PRES (posterior reversible encephalopathy syndrome) Code(s): I67.83 - Posterior reversible encephalopathy syndrome Status: Acute (5) HTN (hypertension) Code(s): I10 - Essential (primary) hypertension Status: Acute (6) Seizures Code(s): R56.9 - Unspecified convulsions Status: Acute (7) Hyperlipidemia Code(s): E78.5 - Hyperlipidemia, unspecified Status: Chronic (8) Diabetes Code(s): E11.9 - Type 2 diabetes mellitus without complications Status: Chronic (9) Diarrhea Code(s): R19.7 - Diarrhea, unspecified Status: Resolved (10) Clavicle fracture Code(s): S42.009A - Fracture of unspecified part of unspecified clavicle, initial encounter for closed fracture Status: Acute (11) Nutrition, metabolism, and development symptoms Code(s): R63.8 - Other symptoms and signs concerning food and fluid intake Status: Acute Plan: - Assessment and Plan 68 yo female with dementia, HTN, DM admitted with: Catatonia May be more severe melancholic depression per psychiatry PRESS only organic finding at this point Neurology and psychiatry following. Benzos stopped at this point. Acute Respiratory Failure due to angioedema - resolved Intubated 05/03 - 05/11 * CCM consulted, signed off on 05/12/18 * Now doing well s/p extubation PRES MRI findings suggestive of PRES, repeat pending today BPs out of range this PM, will increase Coreg and continue PRNs Neurology following, EEG yesterday with slowing After MRI, potentially cleared from neurology to pursue ECT Avoid ACEi Hypertension * Due to PRES needs tighter BP control per neurology: goal SBP 110-120 * IV pushes with Hydralazine and labetalol as needed for BP control * Titrating PO meds * Hydralazine 100 mg TID * Coreg 25 mg BID * Isosorbide dinitrate 10 mg TIDAC * Amlodipine 10 mg daily Seizure Disorder Now with possible repeat seizure vs catalepsy from catatonia EEG with nonspecific encephalopathy MRI/MRA unremarkable except for PRES as noted Changed to PO Keppra Diabetes mellitus BG at hospital goal now * Holding metformin for now * Low dose SSI Hyperlipidemia * Continue home atorvastatin Right [id number]-meun amputation PT/OT evaluate and treat once more able to cooperate Clavicle Fracture, right RUE neurovascularly intact, no deformity noted * Monitor clinically * WBAT RUE HyperNa- resolved, needs good encouragement for PO intake. Fluids: no IVF Diet: pureed diabetic diet * May end up needing RD consult again; she has poor motivation to eat due to depression/catatonia GI: Famotidine Docusate serum/senna 1 tablet twice daily for bowel regimen DVT: Heparin BID dispo: repeat MRI today, may try to coordinate ECT with psychiatry when BP stable to leave. (3) Angioedema Qualifiers: Encounter type: initial encounter Qualified Code(s): T78.3XXA - Angioneurotic edema, initial encounter (5) HTN (hypertension) Qualifiers: Hypertension type: other secondary hypertension Qualified Code(s): I15.8 - Other secondary hypertension (7) Hyperlipidemia Qualifiers: Hyperlipidemia type: pure hypercholesterolemia Qualified Code(s): E78.00 - Pure hypercholesterolemia, unspecified; E78.0 - Pure hypercholesterolemia (8) Diabetes Qualifiers: Diabetes mellitus type: type 2 Diabetes mellitus group home insulin use: unspecified group home insulin use status Diabetes mellitus complication status : with circulatory complication Diabetes mellitus complication detail: with peripheral angiopathy without gangrene Qualified Code(s): E11.51 - Type 2 diabetes mellitus with diabetic peripheral angiopathy without gangrene (10) Clavicle fracture Qualifiers: Encounter type: subsequent encounter Fracture type: closed Laterality: right
[2018-05-14] MEDS ORDERED: levETIRAcetam 500 MG Tablet PO SCH (21:00)
[2018-05-15] MEDS: Insulin NovoLOG Aspart Correctional Sugar Inj SQ SCH ×4 (00:18→17:35)
[2018-05-15] MEDS: Artificial Tears Opth Drops 15 ML Bottle EACH EYE SCH ×4 (00:18→22:40)
[2018-05-15] MEDS: Oral Hygiene Kit OROPHARYNG SCH ×4 (00:18→17:35)
--- NOTE | 2018-05-15 00:37 | HM ---
Date Performed: 05/13/2018 Time Performed: 10:38:00 HOOKUP DATE: 05/13/18 10:38:00 AM Mon ANALYSIS START TIME: 05/13/2018 10:43:00 AM ANALYSIS END TIME: 05/14/2018 9:56:35 AM PATIENT AGE: 68 PATIENT HEIGHT PATIENT WEIGHT DRUG LIST PATIENT DIAGNOSIS: hypertension TEST NARRATIVE: The patient's average heart rate was 76 BPM. No episodes of tachycardia wer e noted. No episodes of bradycardia were noted. No pauses exceeding 2.0 seconds were noted. 99 ventricular ectopics, which represented < 1% of the total beat count, were noted. The highest isael tricular ectopic frequency occurred from 11:00 AM to 12:00 PM Mon. During this time 20 VE(s) occurre d. Ventricular ectopics were observed as 92 isolated beat(s), as 2 couplet(s) and as 1 run(s). 2 17 supraventricular ectopics, which represented < 1% of the total beat count, were noted. The highes t supraventricular ectopic frequency occurred from 04:00 PM to 05:00 PM Mon. During this time 16 SVE (s) occurred. No episodes of ST depression (defined as -1.0 mm or more) were noted in channel 1. No episodes of ST depression (defined as -1.0 mm or more) were noted in channel 2. No episodes of S T depression (defined as -1.0 mm or more) were noted in channel 3. TEST INTERPRETATION: 1) Sinus rhythm with sinus arrhythmia 2) Rare PVC, occasional PAC, rare ventricular/atrial couplets 3) Short runs of PAT with 3-6 beats 4) No other arrhythmias noted 5) No pauses noted 6) [facility] Signed by : Alexandre Vargas
--- NOTE | 2018-05-15 07:39 | P.PNNEU ---
Subjective Active Medications: Active Medications Acetaminophen (Tylenol Liq) 650 mg NG/OG Q6H PRN PRN Reason: PAIN 1-10 AND/OR FEVER >101F Al Hydroxide/Mg Hydroxide (Milk Of Magnesia Liq) 30 ml PO Q12H PRN PRN Reason: Mild Constipation Albuterol (Albuterol Neb (Prn)) 2.5 mg NEB Q2HR NEB PRN PRN Reason: DYSPNEA Amlodipine Besylate (Norvasc) 10 mg PO DAILY [facility] Last Admin: 05/14/18 09:51 Dose: 10 mg Artificial Tears (Tears Naturale Opth Drops) 1 drop EACH EYE Q8H [facility] Last Admin: 05/15/18 06:12 Dose: Not Given Aspirin (Aspirin Chew) 81 mg NG/OG DAILY [facility] Last Admin: 05/14/18 09:50 Dose: 81 mg Atorvastatin Calcium (Lipitor) 40 mg NG/OG HS [facility] Last Admin: 05/14/18 23:53 Dose: 40 mg Bisacodyl (Dulcolax Supp) 10 mg RECTAL DAILY PRN PRN Reason: SEVERE CONSITIPATION Carvedilol (Coreg) 25 mg PO BID [facility] Last Admin: 05/14/18 23:52 Dose: 25 mg Dextrose (D50w Vial) 50 ml IV.PUSH UNSCH PRN PRN Reason: PER HYPOGLYCEMIA PROTOCOL Famotidine (Pepcid Pf Inj) 20 mg IV.PUSH Q12HR [facility] Last Admin: 05/14/18 23:54 Dose: 20 mg Gabapentin (Neurontin) 600 mg PO BID [facility] Last Admin: 05/01/18 08:56 Dose: Not Given Glucagon (Glucagon Inj) 1 mg OTHER PRN PRN PRN Reason: for Hypoglycemia Protocol Heparin Sodium (Porcine) (Heparin Inj) 5,000 units SQ Q12HR [facility] Last Admin: 05/14/18 23:53 Dose: 5,000 units Hydralazine HCl (Apresoline Inj) 10 mg IV.PUSH Q1H PRN PRN Reason: sbp > 140 Last Admin: 05/08/18 22:04 Dose: 10 mg Hydralazine HCl (Apresoline) 100 mg PO TID [facility] Last Admin: 05/14/18 18:48 Dose: 100 mg Fentanyl (Fentanyl 10 Mcg/Ml Premix Drip) 2,500 mcg in 250 mls @ 5 mls/hr IV.SIG TITRATE PRN; Protocol PRN Reason: Per Protocol Insulin Aspart (Novolog Insulin Correctional Sugar Inj) 0 unit SQ Q6HR [facility]; Protocol Last Admin: 05/15/18 06:11 Dose: Not Given Insulin Detemir (Levemir Inj) 5 unit SQ BID [facility] Last Admin: 05/14/18 23:53 Dose: 5 unit Isosorbide Dinitrate (Isordil) 10 mg PO TIDAC [facility] Last Admin: 05/14/18 18:49 Dose: 10 mg Labetalol HCl (Trandate Inj) 10 mg IV.PUSH Q1H PRN PRN Reason: Sbp>140, Dbp>90, Hr>65 Last Admin: 05/10/18 23:29 Dose: 10 mg Lactulose (Lactulose Liq) 30 ml PO DAILY PRN PRN Reason: SEVERE CONSITIPATION Miscellaneous Medication () 1 each OROPHARYNG 0000,0400,1200,1600 [facility] Last Admin: 05/15/18 06:11 Dose: Not Given Ondansetron HCl (Zofran Inj) 4 mg IV.PUSH Q6H PRN PRN Reason: NAUSEA Senna/Docusate Sodium (Aleah-Colace) 1 tab PO BID [facility] Last Admin: 05/14/18 23:53 Dose: 1 tab Sennosides (Senokot) 17.2 mg PO Q12H PRN PRN Reason: Moderate Constipation Sodium Chloride (Ns Flush) 2 ml IV.FLUSH BID [facility] Last Admin: 05/14/18 23:54 Dose: 2 ml Sodium Chloride (Ns Flush) 2 ml IV.FLUSH UNSCH PRN PRN Reason: FLUSH AFTER USING IV ACCESS Last Admin: 05/06/18 08:32 Dose: 2 ml Thiamine HCl (Thiamine Inj) 100 mg IM DAILY [facility] Last Admin: 05/14/18 09:50 Dose: 100 mg Allergies/Adverse Reactions: Allergies Allergy/AdvReac Type Severity Reaction Status Date / Time JACE Inhibitors Allergy Swelling Verified 05/06/18 12:26 of Lip/Tongue/Throat iodine Allergy Swelling Verified 04/19/18 15:50 Physical Exam Vital signs: Vital Signs 05/14/18 08:00 05/14/18 10:27 05/14/18 12:00 Temperature 97.9 F 97.4 F L Pulse Rate 92 H 64 Respiratory Rate 16 20 Blood Pressure 173/72 H 143/65 H Pulse Oximetry 96 94 L 95 05/14/18 15:56 05/14/18 20:26 05/15/18 01:07 Temperature 98.3 F 98.1 F 98.3 F Pulse Rate 78 83 82 Respiratory Rate 20 20 18 Blood Pressure 98/57 L 144/65 H 150/77 H Pulse Oximetry 96 92 L 96 05/15/18 04:40 Temperature 97.9 F Pulse Rate 70 Respiratory Rate 18 Blood Pressure 116/70 Pulse Oximetry 97 Intake & Output 05/14/18 05/15/18 05/15/18 18:59 06:59 18:59 Weight 57 kg Other: # Incontinent Voids 1 2 Date of Last Bowel Movement 05/11/18 05/11/18 Narrative: seems inattentive follows some commands others not - Urinary Catheter Management Straight Cath placed during this visit: no Objective Laboratory Results - last 24 hr 05/14/18 05/14/18 05/14/18 08:58 12:33 17:17 POC Glucose 170 H 130 H Total Protein (PEP) 5.1 L 05/15/18 05/15/18 00:17 06:11 POC Glucose 115 H 116 H Total Protein (PEP) Microbiology 05/09/18 11:36 Aerobic Blood Culture - Final Blood - Peripheral No growth in 5 days Anaerobic Blood Culture - Final No growth in 5 days 05/09/18 11:30 Aerobic Blood Culture - Final Blood - Peripheral No growth in 5 days Anaerobic Blood Culture - Final No growth in 5 days Review/Management - Diagnosis (1) Hypertensive encephalopathy Code(s): I67.4 - Hypertensive encephalopathy Status: Acute Current Visit: Yes (2) HTN (hypertension) Code(s): I10 - Essential (primary) hypertension Status: Acute Current Visit : No (3) Dementia Code(s): F03.90 - Unspecified dementia without behavioral disturbance Status: Acute Current Visit: No (4) Seizures Code(s): R56.9 - Unspecified convulsions Status: Acute Current Visit: No (5) Anxiety Code(s): F41.9 - Anxiety disorder, unspecified Status: Acute Current Visit: No - Review/Management Plan: 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 may have element of PRES as noted in prior notes recs check csf studies-pending bp control Thiamine supplementation follow exam Dr. Mehta to follow in a.m. 05/01/18 mri loops like PRES mra and mrv and labs all neg keep bp 110-120/ LP today eeg neg on keppra --------- 05/02/18 looks a little better mri repeat yest no change pres bp better keep 110-120/ await LP needs done today!! on keppra 05/03/18 mri no change eeg neg LP neg bp better check ct abd and pelvis and chest paraneo 05/06/18 looks so much better neurowise check paraneoplastic labs PRES clinically better thiamine pend will recheck mri in few days keep bp down 110-120/ ct chest and abd ok 05/07/18 sedated i [facility] med team pt looked to have early changes of pres 2 days after admit and bp initially 186/ in er the Question of which came first the pres or the catatonia ? i think overall the pres likley caused the ms changes as bp came down she is so much better yest i andrei nurse hold sedative should awaken she was on seroquel and lexapro i believe b4 admit and nms considered with drastic improvement clinically would not rec ect need to inc po meds for bp control i see no major hypotension documented when not on iv meds 05/08/18 will need to keep off sedatives i andrei nurse keep bp 110-120/ possible extubation today as above i am not convinced she had catatonia b4 pres started as bp taken in er day b4 ms changes in 180/ range regardless with ms improvement with rx of bp i am not recommending ect at this time 05/09/17 130-170/ we need to keep bp 110-120 at all times more awake off sedatives working on extubation 05/10/18 would like bp 110-120/ recheck mri looking well overall await extubation when can will fu sunday call neuro technology adoption manager if any ? 05/13/18 better than b4 intubation but stillslow to respond mri is better and looks like small old smattering of infarcts left high posterior cortex pres improved keep bp down will check eeg if that looks ok and not improving ms garcia daily consider ect us echo neg check holter old cva 05/14/18 not doing much today as far as verbally abg nl eeg slow will recheck mri and if pres continues abated ok for ect check spep daughter states was nl mentally 2 day prior to admission when took narcotics seemed to start ms change holter pend daughter knows of old left cva yrs ago 05/15/18 mri pres resolved spep pend holter neg old cva no better my thoughts would be to see if jimbo or cathi will take her for consideration of ect since she is a complex and not straight forward case for second opinion (2) HTN (hypertension) Qualifiers: Hypertension type: other secondary hypertension Qualified Code(s): I15.8 - Other secondary hypertension
[2018-05-15 07:49] LABS: Hematocrit 32.1 % (35.0-46.0); Hemoglobin 10.8 gm/dL (11.6-15.3); Mean Corpuscular HGB Conc 33.8 % (32.0-36.0); Mean Corpuscular Hemoglobin 31.6 pg (27.0-34.0); Mean Corpuscular Volume 93.6 fL (80.0-100.0); Mean Platelet Volume 9.5 fL (7.0-11.0); Platelet Count 223 th/mm3 (150-450); Red Blood Count 3.43 mil/mm3 (4.00-5.30); Red Cell Distribution Width 14.3 % (11.6-17.2); White Blood Count 10.7 th/mm3 (4.0-11.0)
[2018-05-15 08:11] LABS: Anion Gap 7 meq/L (5-15); Blood Urea Nitrogen 21 mg/dL (7-18); Calcium 8.2 mg/dL (8.5-10.1); Carbon Dioxide 27.6 meq/L (21.0-32.0); Chloride 107 meq/L (98-107); Glomerular Filtration Rate Greater Than 89 mL/min (>89); Glucose,Random 108 mg/dL (74-106); Potassium 3.8 meq/L (3.5-5.1); Sodium 142 meq/L (136-145)
[2018-05-15] MEDS: Heparin - SQ 10,000 UNITS/ML Vial SQ SCH ×2 (08:14→22:37)
[2018-05-15] MEDS: Famotidine PF Inj 20 MG/2 ML Vial IV.PUSH SCH ×2 (08:14→22:39)
[2018-05-15] MEDS: Carvedilol 12.5 MG Tablet PO SCH ×2 (08:15→22:42)
[2018-05-15] MEDS: Senna/Docusate Sodium 8.6/50 MG Tablet PO SCH ×2 (08:15→22:39)
[2018-05-15] MEDS: amLODIPine 10 MG Tablet PO SCH (08:15)
[2018-05-15] MEDS: hydrALAZINE 25 MG Tablet PO SCH ×3 (08:15→17:35)
[2018-05-15] MEDS: Insulin Detemir Inj 1,000 UNIT/10 ML Vial SQ SCH ×2 (08:15→22:38)
--- NOTE | 2018-05-15 10:20 | P.PNFP ---
Subjective Interval history: Ms Pedroza was seen on rounds this morning. Review of systems and history limited due to patient's current mental status. She mumbles yes and no to some questions but is very limited in speech. <Misty LopezSavana Arsh - 05/15/18 10:20> Results - Labs Result diagrams: 05/15/18 05:58 05/15/18 05:58 <Dino Day - 05/15/18 10:55> Abnormal lab results 05/14/18 05/14/18 05/15/18 Range/Units 12:33 17:17 00:17 RBC (4.00-5.30) mil/mm3 Hgb (11.6-15.3) gm/dL Hct (35.0-46.0) % BUN (7-18) mg/dL POC Glucose 170 H 130 H 115 H (68-110) mg/dl Random Glucose (74-106) mg/dL Calcium (8.5-10.1) mg/dL 05/15/18 05/15/18 05/15/18 Range/Units 05:58 05:58 06:11 RBC 3.43 L (4.00-5.30) mil/mm3 Hgb 10.8 L (11.6-15.3) gm/dL Hct 32.1 L (35.0-46.0) % BUN 21 H (7-18) mg/dL POC Glucose 116 H (68-110) mg/dl Random Glucose 108 H (74-106) mg/dL Calcium 8.2 L (8.5-10.1) mg/dL Short CBC 05/15/18 Range/Units 05:58 WBC 10.7 (4.0-11.0) th/mm3 Hgb 10.8 L (11.6-15.3) gm/dL Hct 32.1 L (35.0-46.0) % Plt Count 223 (150-450) th/mm3 BMP 05/15/18 05:58 Sodium 142 Potassium 3.8 Chloride 107 Carbon Dioxide 27.6 BUN 21 H Creatinine 0.52 Calcium 8.2 L <Dino Day - 05/15/18 10:55> Abnormal lab results 05/14/18 05/14/18 05/15/18 Range/Units 12:33 17:17 00:17 RBC (4.00-5.30) mil/mm3 Hgb (11.6-15.3) gm/dL Hct (35.0-46.0) % BUN (7-18) mg/dL POC Glucose 170 H 130 H 115 H (68-110) mg/dl Random Glucose (74-106) mg/dL Calcium (8.5-10.1) mg/dL 05/15/18 05/15/18 05/15/18 Range/Units 05:58 05:58 06:11 RBC 3.43 L (4.00-5.30) mil/mm3 Hgb 10.8 L (11.6-15.3) gm/dL Hct 32.1 L (35.0-46.0) % BUN 21 H (7-18) mg/dL POC Glucose 116 H (68-110) mg/dl Random Glucose 108 H (74-106) mg/dL Calcium 8.2 L (8.5-10.1) mg/dL Short CBC 05/15/18 Range/Units 05:58 WBC 10.7 (4.0-11.0) th/mm3 Hgb 10.8 L (11.6-15.3) gm/dL Hct 32.1 L (35.0-46.0) % Plt Count 223 (150-450) th/mm3 BMP 05/15/18 05:58 Sodium 142 Potassium 3.8 Chloride 107 Carbon Dioxide 27.6 BUN 21 H Creatinine 0.52 Calcium 8.2 L <Savana Boston - 05/15/18 10:20> - Imaging Impressions Head MRI 05/14/18 00:00 CONCLUSION: 1. No significant change in the extensive periventricular and subcortical white matter small vessel ischemic changes bilaterally. 2. Diffuse cerebral atrophy is stable. 3. No acute infarct, acute hemorrhage or midline shift. 4. The previously noted edema involving the bilateral parietal, temporal and occipital lobes has resolved. 5. Scattered old lacunar infarcts are stable. <Dino Day - 05/15/18 10:55> Impressions Head MRI 05/14/18 00:00 CONCLUSION: 1. No significant change in the extensive periventricular and subcortical white matter small vessel ischemic changes bilaterally. 2. Diffuse cerebral atrophy is stable. 3. No acute infarct, acute hemorrhage or midline shift. 4. The previously noted edema involving the bilateral parietal, temporal and occipital lobes has resolved. 5. Scattered old lacunar infarcts are stable. <Misty Savana Lopez E - 05/15/18 10:20> Physical Exam Vital signs: Vital Signs 05/14/18 12:00 05/14/18 15:56 05/14/18 20:26 Temperature 97.4 F L 98.3 F 98.1 F Pulse Rate 64 78 83 Respiratory Rate 20 20 20 Blood Pressure 143/65 H 98/57 L 144/65 H Pulse Oximetry 95 96 92 L 05/15/18 01:07 05/15/18 04:40 05/15/18 08:00 Temperature 98.3 F 97.9 F 97.9 F Pulse Rate 82 70 84 Respiratory Rate 18 18 20 Blood Pressure 150/77 H 116/70 104/66 Pulse Oximetry 96 97 92 L 05/15/18 09:40 Temperature Pulse Rate Respiratory Rate Blood Pressure Pulse Oximetry 97 Intake & Output 05/14/18 05/15/18 05/15/18 18:59 06:59 18:59 Weight 57 kg Other: # Incontinent Voids 1 2 Date of Last Bowel Movement 05/11/18 05/11/18 <Dino aDy K - 05/15/18 10:55> Vital Signs 05/14/18 10:27 05/14/18 12:00 05/14/18 15:56 Temperature 97.4 F L 98.3 F Pulse Rate 64 78 Respiratory Rate 20 20 Blood Pressure 143/65 H 98/57 L Pulse Oximetry 94 L 95 96 05/14/18 20:26 05/15/18 01:07 05/15/18 04:40 Temperature 98.1 F 98.3 F 97.9 F Pulse Rate 83 82 70 Respiratory Rate 20 18 18 Blood Pressure 144/65 H 150/77 H 116/70 Pulse Oximetry 92 L 96 97 05/15/18 08:00 05/15/18 09:40 Temperature 97.9 F Pulse Rate 84 Respiratory Rate 20 Blood Pressure 104/66 Pulse Oximetry 92 L 97 Intake & Output 05/14/18 05/15/18 05/15/18 18:59 06:59 18:59 Weight 57 kg Other: # Incontinent Voids 1 2 Date of Last Bowel Movement 05/11/18 05/11/18 <Misty Savana Lopez 05/15/18 10:20> Narrative: GENERAL: lying in bed, NAD SKIN: Warm and dry. CARDIOVASCULAR: Regular rate and rhythm. RESPIRATORY: No accessory muscle use. Clear to auscultation. Breath sounds equal bilaterally. MUSCULOSKELETAL: Right AKA present NEUROLOGICAL: Awake. Only follow some commands PSYCHIATRIC: Flat affect. Minimally verbal <Savana Boston 05/15/18 10:20> - Urinary Catheter Management Straight Cath placed during this visit: no <Dino Day 05/15/18 10:55> no <Savana Boston 05/15/18 10:25> Assessment and Plan - Assessment (1) Catatonia associated with another mental disorder Code(s): F06.1 - Catatonic disorder due to known physiological condition Status: Acute (2) Acute respiratory failure Code(s): J96.00 - Acute respiratory failure, unspecified whether with hypoxia or hypercapnia Status: Resolved (3) Angioedema Code(s): T78.3XXA - Angioneurotic edema, initial encounter Status: Resolved (4) PRES (posterior reversible encephalopathy syndrome) Code(s): I67.83 - Posterior reversible encephalopathy syndrome Status: Acute (5) HTN (hypertension) Code(s): I10 - Essential (primary) hypertension Status: Acute (6) Seizures Code(s): R56.9 - Unspecified convulsions Status: Acute (7) Hyperlipidemia Code(s): E78.5 - Hyperlipidemia, unspecified Status: Chronic (8) Diabetes Code(s): E11.9 - Type 2 diabetes mellitus without complications Status: Chronic (9) Diarrhea Code(s): R19.7 - Diarrhea, unspecified Status: Resolved (10) Clavicle fracture Code(s): S42.009A - Fracture of unspecified part of unspecified clavicle, initial encounter for closed fracture Status: Acute (11) Nutrition, metabolism, and development symptoms Code(s): R63.8 - Other symptoms and signs concerning food and fluid intake Status: Acute <Dino Day 05/15/18 10:55> (1) Catatonia associated with another mental disorder Code(s): F06.1 - Catatonic disorder due to known physiological condition Status: Acute Plan: Per neurology note yesterday recommendation for transfer to [place] or [facility] for further workup and evaluation. Will speak to psych regarding this. 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 Benzos stopped at this point. (2) Acute respiratory failure Code(s): J96.00 - Acute respiratory failure, unspecified whether with hypoxia or hypercapnia Status: Resolved Plan: Intubated 05/03 - 05/11 * CCM consulted, signed off on 05/12/18 * Now doing well s/p extubation (3) Angioedema Code(s): T78.3XXA - Angioneurotic edema, initial encounter Status: Resolved Plan: See above (4) PRES (posterior reversible encephalopathy syndrome) Code(s): I67.83 - Posterior reversible encephalopathy syndrome Status: Acute Plan: MRI findings suggestive of PRES, resolved on repeat imaging yesterday BPs labile, will continue anti-HTN Neurology following, EEG yesterday with slowing After MRI, potentially cleared from neurology to pursue ECT Avoid ACEi (5) HTN (hypertension) Code(s): I10 - Essential (primary) hypertension Status: Acute Plan: Due to PRES needs tighter BP control per neurology: goal SBP 110-120 * IV pushes with Hydralazine and labetalol as needed for BP control * Titrating PO meds * Hydralazine 100 mg TID * Coreg 25 mg BID * Isosorbide dinitrate 10 mg TIDAC * Amlodipine 10 mg daily (6) Seizures Code(s): R56.9 - Unspecified convulsions Status: Acute Plan: Now with possible repeat seizure vs catalepsy from catatonia EEG with nonspecific encephalopathy MRI/MRA unremarkable except for PRES, resolved Changed to PO Keppra (7) Hyperlipidemia Code(s): E78.5 - Hyperlipidemia, unspecified Status: Chronic Plan: We will continue on her regular medications. (8) Diabetes Code(s): E11.9 - Type 2 diabetes mellitus without complications Status: Chronic Plan: BG at hospital goal now * Holding metformin for now * Low dose SSI (9) Diarrhea Code(s): R19.7 - Diarrhea, unspecified Status: Resolved (10) Clavicle fracture Code(s): S42.009A - Fracture of unspecified part of unspecified clavicle, initial encounter for closed fracture Status: Acute Plan: RUE neurovascularly intact, no deformity noted * Monitor clinically * WBAT RUE (11) Nutrition, metabolism, and development symptoms Code(s): R63.8 - Other symptoms and signs concerning food and fluid intake Status: Acute Plan: Fluids: no IVF Diet: pureed diabetic diet * May end up needing RD consult again; she has poor motivation to eat due to depression/catatonia GI: Famotidine Docusate serum/senna 1 tablet twice daily for bowel regimen DVT: Heparin BID <Savana Boston - 05/15/18 10:21> - Assessment and Plan Discussed Condition With: Chris Day and Kishor <Savana Boston - 05/15/18 10:25> - Attending Attestation The exam, history, and the medical decision-making described in the above note were completed with the assistance of the resident physician. I reviewed and agree with the findings presented. I attest that I had a [id number] encounter with the patient on the same day, and personally performed and documented my assessment and findings in the medical record. Seems the same from neuro/psych standpoint. will drink water but only if straw placed directly in her mouth. will eat pureed foods but only if spoon fed. cannot encourage her verbally to eat or drink even when placing cup and eating utensils in her hand. she cannot answer her name again today although she did 2 days ago. She does answer yes to some questions such as if she would like to pursue ECT. some commands she will follow. for example today she would wiggle her left fingers but not her right. yesterday she would wiggle both. she would wiggle her toes when i would ask to wiggle her fingers. when asked to stop wiggling her toes she would stop but then would start again without command. She still has mouth automatisms. she will make eye contact to verbal stimuli. She is still on O2. Repeat MRI with resolution of PRES, neuro done with their work up per notes and recommends transfer to another facility for ECT. Will discuss with psych today. d/w chris winn and kishor <Dino Day K - 05/15/18 10:55> <Savana Boston E - Last Filed: 05/15/18 10:21> (3) Angioedema Qualifiers: Encounter type: initial encounter Qualified Code(s): T78.3XXA - Angioneurotic edema, initial encounter (5) HTN (hypertension) Qualifiers: Hypertension type: other secondary hypertension Qualified Code(s): I15.8 - Other secondary hypertension (7) Hyperlipidemia Qualifiers: Hyperlipidemia type: pure hypercholesterolemia Qualified Code(s): E78.00 - Pure hypercholesterolemia, unspecified; E78.0 - Pure hypercholesterolemia (8) Diabetes Qualifiers: Diabetes mellitus type: type 2 Diabetes mellitus extermination supervisor insulin use: unspecified extermination supervisor insulin use status Diabetes mellitus complication status : with circulatory complication Diabetes mellitus complication detail: with peripheral angiopathy without gangrene Qualified Code(s): E11.51 - Type 2 diabetes mellitus with diabetic peripheral angiopathy without gangrene (10) Clavicle fracture Qualifiers: Encounter type: subsequent encounter Fracture type: closed Laterality: right <Dino Day K - Last Filed: 05/15/18 10:55> (3) Angioedema Qualifiers: Encounter type: initial encounter Qualified Code(s): T78.3XXA - Angioneurotic edema, initial encounter (5) HTN (hypertension) Qualifiers: Hypertension type: other secondary hypertension Qualified Code(s): I15.8 - Other secondary hypertension (7) Hyperlipidemia Qualifiers: Hyperlipidemia type: pure hypercholesterolemia Qualified Code(s): E78.00 - Pure hypercholesterolemia, unspecified; E78.0 - Pure hypercholesterolemia (8) Diabetes Qualifiers: Diabetes mellitus type: type 2 Diabetes mellitus fci insulin use: unspecified fci insulin use status Diabetes mellitus complication status : with circulatory complication Diabetes mellitus complication detail: with peripheral angiopathy without gangrene Qualified Code(s): E11.51 - Type 2 diabetes mellitus with diabetic peripheral angiopathy without gangrene (10) Clavicle fracture Qualifiers: Encounter type: subsequent encounter Fracture type: closed Laterality: right <Savana Boston E - Last Filed: 05/15/18 10:21> (3) Angioedema Qualifiers: Encounter type: initial encounter Qualified Code(s): T78.3XXA - Angioneurotic edema, initial encounter (5) HTN (hypertension) Qualifiers: Hypertension type: other secondary hypertension Qualified Code(s): I15.8 - Other secondary hypertension (7) Hyperlipidemia Qualifiers: Hyperlipidemia type: pure hypercholesterolemia Qualified Code(s): E78.00 - Pure hypercholesterolemia, unspecified; E78.0 - Pure hypercholesterolemia (8) Diabetes Qualifiers: Diabetes mellitus type: type 2 Diabetes mellitus extermination supervisor insulin use: unspecified fci insulin use status Diabetes mellitus complication status : with circulatory complication Diabetes mellitus complication detail: with peripheral angiopathy without gangrene Qualified Code(s): E11.51 - Type 2 diabetes mellitus with diabetic peripheral angiopathy without gangrene (10) Clavicle fracture Qualifiers: Encounter type: subsequent encounter Fracture type: closed Laterality: right <HernanDino gooden K - Last Filed: 05/15/18 10:55> (3) Angioedema Qualifiers: Encounter type: initial encounter Qualified Code(s): T78.3XXA - Angioneurotic edema, initial encounter (5) HTN (hypertension) Qualifiers: Hypertension type: other secondary hypertension Qualified Code(s): I15.8 - Other secondary hypertension (7) Hyperlipidemia Qualifiers: Hyperlipidemia type: pure hypercholesterolemia Qualified Code(s): E78.00 - Pure hypercholesterolemia, unspecified; E78.0 - Pure hypercholesterolemia (8) Diabetes Qualifiers: Diabetes mellitus type: type 2 Diabetes mellitus fci insulin use: unspecified fci insulin use status Diabetes mellitus complication status : with circulatory complication Diabetes mellitus complication detail: with peripheral angiopathy without gangrene Qualified Code(s): E11.51 - Type 2 diabetes mellitus with diabetic peripheral angiopathy without gangrene (10) Clavicle fracture Qualifiers: Encounter type: subsequent encounter Fracture type: closed Laterality: right
--- NOTE | 2018-05-15 11:41 | XR ---
EXAM DATE: 05/15/2018 11:10 AM EST AGE/SEX: 68 years / Female INDICATIONS: Cough. CLINICAL DATA: This is the patient's subsequent encounter. Patient reports that signs and symptoms h ave been present for 2 weeks and indicates a pain score of 0/10. MEDICAL/SURGICAL HISTORY: . Hypertension. Dementia. Diabetes. Cerebrovascular attack. Non-Hodgk in lymphoma. Non-responsive. COMPARISON: [facility] [place], CHEST 1V SINGLE AP, 05/11/2018. . FINDINGS: The lungs are under aerated with minimal bibasilar parenchymal changes. The heart is minimally enlarged. The pulmonary vascularity is normal. There is no pleural effusion CONCLUSION: Compensated cardiomegaly with minimal parenchymal changes left base that could be an early inflammato ry process Electronically signed by: Tang Castorena MD Board Certified Radiologist 05/15/2018 11:40 AM EST
--- NOTE | 2018-05-15 14:52 | P.PNPSY ---
Subjective Remarks: Patient was seen today for psychiatric reevaluation. Case was discussed with primary medical team. On my evaluation I found the patient that is distant, minimally engaged in a conversation, with prominent flat affect, mask face, decreased and delayed speech production, oppositional behavior and psychomotor retardation. The patient reports to feeling okay, for every question the patient answers mostly with monosyllables 30 seconds to a minute, even more later. But she is oriented in person, in place, partially oriented in time. Very guarded, seems to be internally preoccupied and emotionally disturbed. Stiffness, waxy flexibility present. She does deny suicidal and homicidal ideation, denies visual and auditory hallucinations. Vital signs are within the normal limits, no autonomic instability present. The patient is noted psychotropics at the moment. Mental Status Examination Appearance: Appropriate Consciousness: Alert Orientation: Person, Place Motor Activity: Other (Patient is bedridden and currently intubated) Speech: Hesitant, Slow, Other (Whispered) Language: Adequate (Strained) Fund of Knowledge: Adequate (Unknown) Attention and Concentration: Adequate (At times) Memory: Impaired Mood: Anxious, Other (Restricted) Affect: Other (Decreased range and intensity) Thought Process & Associations: Intact Thought Content: Appropriate Hallucination Type: None Delusion Type: None Suicidal Ideation: No Suicidal Plan: No Suicidal Intention: No Homicidal Ideation: No Homicidal Plan: No Homicidal Intention: No Insight: Fair Judgment: Impulsive Assessment and Plan - Assessment (1) Catatonia associated with another mental disorder Code(s): F06.1 - Catatonic disorder due to known physiological condition Status: Acute - Plan Plan: On my psychiatric evaluation patient is minimally engaged in the psychiatric unit, with prominent flat affect, mask face, decreased and delayed speech production, oppositional behavior and psychomotor retardation, significant blocking thought, waxy flexibility which suggest that the patient continues to be catatonic. We will start Ativan 2 mg every 6 hours for catatonia Hold antipsychotics due to question with recent NMS Definitely the patient benefits of ECT I will follow-up Justification for Continued Inpatient Stay: No admission indicated at the moment
--- NOTE | 2018-05-15 19:49 | P.PNWCN ---
Wound Care Nurse Consult Description: Received pressure ulcer consult for sacral area from Doctor Misty Communicated with: RN Eh marks and Doctor Misty. Recommendation: 1.Please cleanse wound with normal saline and pat dry. 2. Apply Santyl ointment richard thickness to wound bed 3. Apply saline moistened 2x2 fluffed gauze just over wound bed avoid placing over intact skin. 4. Cover wound with optifoam gentle border 4x4. 5. Change dressing daily. 6. Please turn patient from L side to R side every 2 hours, limit time spent on back to P.T. and meals. 7. Do not use cotton pads on low airloss bed. 8. Limit layers under patient. Wound/Pressure Injury - Wound Sacrum Wound Staging: Unstageable Wound Assessment: Ongoing Wound Type: Pressure Injury Is This a Chronic Wound: No Requested from Provider a Wound Care Consult: Yes (Patient was seen by inpatient wound care today) Length (cm): 4.5 Width (cm): 2.7 Depth (cm): 0 (slough) Wound Bed Appearance: [place], Yellow Wound Bed Appearance: Wound bed presents with ~70% yellow/brown slough that is adherent and dry and ~ 30% pink tissue. Surrounding Tissue Appearance: Blanched/Dull, [place] Surrounding Tissue Temperature: Cool Drainage Description: Yellow Drainage Amount: Scant Drainage Odor: No Odor Dressing Status: Changed Cleansing Solution: Saline Cover Dressing: optifoam gentle dressing Wound Dressing Change Date: 05/15/18 Wound Margin Description: Wound margins appear open and well defined. - Additional Information Patient seen on [address] [place] [id number] for evaluation of pressure ulcer to sacral area. Patient was already positioned to R side upon law writer's arrival. Wound to Sacral area is visualized with ~70% yellow/brown slough that is adherent and dry and ~ 30% pink tissue. Wound presents as unstageable pressure injury. Periwound is pink and blanchable, and intact.Wound margins are well defined and open. Wound was cleansed with normal saline and patted dry. Applied optifoam gentle border in place over wound bed. Patient tolerated dressing change wound assessment well. Wound description, measurements and wound care recommendations are noted above.
[2018-05-16] MEDS: Oral Hygiene Kit OROPHARYNG SCH ×4 (00:55→16:11)
[2018-05-16] MEDS: Insulin NovoLOG Aspart Correctional Sugar Inj SQ SCH ×4 (00:57→17:39)
[2018-05-16] MEDS: Artificial Tears Opth Drops 15 ML Bottle EACH EYE SCH ×2 (06:22→14:08)
--- NOTE | 2018-05-16 07:54 | P.PNNEU ---
Subjective Active Medications: Active Medications Acetaminophen (Tylenol Liq) 650 mg NG/OG Q6H PRN PRN Reason: PAIN 1-10 AND/OR FEVER >101F Al Hydroxide/Mg Hydroxide (Milk Of Magnesia Liq) 30 ml PO Q12H PRN PRN Reason: Mild Constipation Albuterol (Albuterol Neb (Prn)) 2.5 mg NEB Q2HR NEB PRN PRN Reason: DYSPNEA Amlodipine Besylate (Norvasc) 10 mg PO DAILY [facility] Last Admin: 05/15/18 08:15 Dose: 10 mg Artificial Tears (Tears Naturale Opth Drops) 1 drop EACH EYE Q8H [facility] Last Admin: 05/16/18 06:22 Dose: 1 drop Aspirin (Aspirin Chew) 81 mg NG/OG DAILY [facility] Last Admin: 05/15/18 08:15 Dose: 81 mg Atorvastatin Calcium (Lipitor) 40 mg NG/OG HS [facility] Last Admin: 05/15/18 22:39 Dose: 40 mg Bisacodyl (Dulcolax Supp) 10 mg RECTAL DAILY PRN PRN Reason: SEVERE CONSITIPATION Carvedilol (Coreg) 25 mg PO BID [facility] Last Admin: 05/15/18 22:42 Dose: 25 mg Dextrose (D50w Vial) 50 ml IV.PUSH UNSCH PRN PRN Reason: PER HYPOGLYCEMIA PROTOCOL Famotidine (Pepcid Pf Inj) 20 mg IV.PUSH Q12HR [facility] Last Admin: 05/15/18 22:39 Dose: 20 mg Gabapentin (Neurontin) 600 mg PO BID [facility] Last Admin: 05/01/18 08:56 Dose: Not Given Glucagon (Glucagon Inj) 1 mg OTHER PRN PRN PRN Reason: for Hypoglycemia Protocol Heparin Sodium (Porcine) (Heparin Inj) 5,000 units SQ Q12HR [facility] Last Admin: 05/15/18 22:37 Dose: 5,000 units Hydralazine HCl (Apresoline Inj) 10 mg IV.PUSH Q1H PRN PRN Reason: sbp > 140 Last Admin: 05/08/18 22:04 Dose: 10 mg Hydralazine HCl (Apresoline) 100 mg PO TID [facility] Last Admin: 05/15/18 17:35 Dose: 100 mg Fentanyl (Fentanyl 10 Mcg/Ml Premix Drip) 2,500 mcg in 250 mls @ 5 mls/hr IV.SIG TITRATE PRN; Protocol PRN Reason: Per Protocol Insulin Aspart (Novolog Insulin Correctional Sugar Inj) 0 unit SQ Q6HR [facility]; Protocol Last Admin: 05/16/18 05:39 Dose: Not Given Insulin Detemir (Levemir Inj) 5 unit SQ BID [facility] Last Admin: 05/15/18 22:38 Dose: Not Given Isosorbide Dinitrate (Isordil) 10 mg PO TIDAC [facility] Last Admin: 05/15/18 17:34 Dose: 10 mg Labetalol HCl (Trandate Inj) 10 mg IV.PUSH Q1H PRN PRN Reason: Sbp>140, Dbp>90, Hr>65 Last Admin: 05/10/18 23:29 Dose: 10 mg Lactulose (Lactulose Liq) 30 ml PO DAILY PRN PRN Reason: SEVERE CONSITIPATION Lorazepam (Ativan) 2 mg PO Q6H [facility] Last Admin: 05/16/18 05:31 Dose: 2 mg Miscellaneous Medication () 1 each OROPHARYNG 0000,0400,1200,1600 [facility] Last Admin: 05/16/18 05:32 Dose: Not Given Ondansetron HCl (Zofran Inj) 4 mg IV.PUSH Q6H PRN PRN Reason: NAUSEA Senna/Docusate Sodium (Aleah-Colace) 1 tab PO BID [facility] Last Admin: 05/15/18 22:39 Dose: Not Given Sennosides (Senokot) 17.2 mg PO Q12H PRN PRN Reason: Moderate Constipation Sodium Chloride (Ns Flush) 2 ml IV.FLUSH BID [facility] Last Admin: 05/15/18 22:39 Dose: 2 ml Sodium Chloride (Ns Flush) 2 ml IV.FLUSH UNSCH PRN PRN Reason: FLUSH AFTER USING IV ACCESS Last Admin: 05/06/18 08:32 Dose: 2 ml Thiamine HCl (Thiamine Inj) 100 mg IM DAILY [facility] Last Admin: 05/15/18 08:14 Dose: 100 mg Allergies/Adverse Reactions: Allergies Allergy/AdvReac Type Severity Reaction Status Date / Time JACE Inhibitors Allergy Swelling Verified 05/06/18 12:26 of Lip/Tongue/Throat iodine Allergy Swelling Verified 04/19/18 15:50 Physical Exam Vital signs: Vital Signs 05/15/18 08:00 05/15/18 09:40 05/15/18 11:41 Temperature 97.9 F 97.7 F Pulse Rate 69 69 Respiratory Rate 20 20 Blood Pressure 104/66 129/60 Pulse Oximetry 92 L 97 95 05/15/18 15:54 05/15/18 20:00 05/15/18 21:06 Temperature 98.0 F 98.2 F Pulse Rate 68 110 H 69 Respiratory Rate 20 18 Blood Pressure 133/63 158/68 H Pulse Oximetry 97 99 05/15/18 21:07 05/16/18 01:18 05/16/18 04:23 Temperature 98.2 F 98.3 F Pulse Rate 59 L 69 Respiratory Rate 18 18 Blood Pressure 156/71 H 160/70 H Pulse Oximetry 98 97 95 Intake & Output 05/15/18 05/16/18 05/16/18 18:59 06:59 18:59 Intake Total 60 / 60 Balance 60 / 60 Weight 57 kg Intake: Oral 60 / 60 Other: Date of Last Bowel Movement 05/11/18 Narrative: no better seems less responsive - Urinary Catheter Management Straight Cath placed during this visit: no Objective Laboratory Results - last 24 hr 05/15/18 05/15/18 05/15/18 05:58 12:38 17:33 Sodium 142 Potassium 3.8 Chloride 107 Carbon Dioxide 27.6 Anion Gap 7 BUN 21 H Creatinine 0.52 Estimated GFR Greater than 89 POC Glucose 203 H 109 Random Glucose 108 H Calcium 8.2 L 05/15/18 05/16/18 05/16/18 20:46 00:56 05:38 Sodium Potassium Chloride Carbon Dioxide Anion Gap BUN Creatinine Estimated GFR POC Glucose 110 108 97 Random Glucose Calcium Review/Management - Diagnosis (1) Hypertensive encephalopathy Code(s): I67.4 - Hypertensive encephalopathy Status: Acute Current Visit: Yes (2) HTN (hypertension) Code(s): I10 - Essential (primary) hypertension Status: Acute Current Visit : No (3) Dementia Code(s): F03.90 - Unspecified dementia without behavioral disturbance Status: Acute Current Visit: No (4) Seizures Code(s): R56.9 - Unspecified convulsions Status: Acute Current Visit: No (5) Anxiety Code(s): F41.9 - Anxiety disorder, unspecified Status: Acute Current Visit: No - Review/Management Plan: 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 may have element of PRES as noted in prior notes recs check csf studies-pending bp control Thiamine supplementation follow exam Dr. Mehta to follow in a.m. 05/01/18 mri loops like PRES mra and mrv and labs all neg keep bp 110-120/ LP today eeg neg on keppra --------- 05/02/18 looks a little better mri repeat yest no change pres bp better keep 110-120/ await LP needs done today!! on keppra 05/03/18 mri no change eeg neg LP neg bp better check ct abd and pelvis and chest paraneo 05/06/18 looks so much better neurowise check paraneoplastic labs PRES clinically better thiamine pend will recheck mri in few days keep bp down 110-120/ ct chest and abd ok 05/07/18 sedated i dw med team pt looked to have early changes of pres 2 days after admit and bp initially 186/ in er the Question of which came first the pres or the catatonia ? i think overall the pres likley caused the ms changes as bp came down she is so much better yest i dw nurse hold sedative should awaken she was on seroquel and lexapro i believe b4 admit and nms considered with drastic improvement clinically would not rec ect need to inc po meds for bp control i see no major hypotension documented when not on iv meds 05/08/18 will need to keep off sedatives i dw nurse keep bp 110-120/ possible extubation today as above i am not convinced she had catatonia b4 pres started as bp taken in er day b4 ms changes in 180/ range regardless with ms improvement with rx of bp i am not recommending ect at this time 05/09/17 130-170/ we need to keep bp 110-120 at all times more awake off sedatives working on extubation 05/10/18 would like bp 110-120/ recheck mri looking well overall await extubation when can will fu sunday call neuro lithography contact worker if any ? 05/13/18 better than b4 intubation but stillslow to respond mri is better and looks like small old smattering of infarcts left high posterior cortex pres improved keep bp down will check eeg if that looks ok and not improving ms garcia daily consider ect us echo neg check holter old cva 05/14/18 not doing much today as far as verbally abg nl eeg slow will recheck mri and if pres continues abated ok for ect check spep daughter states was nl mentally 2 day prior to admission when took narcotics seemed to start ms change holter pend daughter knows of old left cva yrs ago 05/15/18 mri pres resolved spep pend holter neg old cva no better my thoughts would be to see if [facility] will take her for consideration of ect since she is a complex and not straight forward case for second opinion 05/16/18 if anything a little worse will try 1 gm solumedrol rec transfer to [facility] or [facility] for ect psych started benzo (2) HTN (hypertension) Qualifiers: Hypertension type: other secondary hypertension Qualified Code(s): I15.8 - Other secondary hypertension
--- NOTE | 2018-05-16 08:47 | P.PNFP ---
Subjective Interval history: Pt seen and examined this morning. She was unable to answer verbally to my questions. Did shake her head no to if she had any pain then went back to sleep. <Keyshawn MinerShantel G - 05/16/18 09:28> Results - Labs Result diagrams: 05/15/18 05:58 05/15/18 05:58 <Dino Day - 05/16/18 10:47> Abnormal lab results 05/15/18 Range/Units 12:38 POC Glucose 203 H (68-110) mg/dl <Dino Day 05/16/18 10:47> Abnormal lab results 05/15/18 Range/Units 12:38 POC Glucose 203 H (68-110) mg/dl <Shantel Summers - 05/16/18 08:47> - Imaging Impressions Chest X-Ray 05/15/18 00:00 CONCLUSION: Compensated cardiomegaly with minimal parenchymal changes left base that could be an early inflammatory process <Dino Day 05/16/18 10:47> Impressions Chest X-Ray 05/15/18 00:00 CONCLUSION: Compensated cardiomegaly with minimal parenchymal changes left base that could be an early inflammatory process <Shantel Summers - 05/16/18 08:47> Physical Exam Vital signs: Vital Signs 05/15/18 11:41 05/15/18 15:54 05/15/18 20:00 Temperature 97.7 F 98.0 F Pulse Rate 69 68 110 H Respiratory Rate 20 20 Blood Pressure 129/60 133/63 Pulse Oximetry 95 97 05/15/18 21:06 05/15/18 21:07 05/16/18 01:18 Temperature 98.2 F 98.2 F Pulse Rate 69 59 L Respiratory Rate 18 18 Blood Pressure 158/68 H 156/71 H Pulse Oximetry 99 98 97 05/16/18 04:23 05/16/18 07:35 05/16/18 08:00 Temperature 98.3 F 98.7 F Pulse Rate 69 68 65 Respiratory Rate 18 20 Blood Pressure 160/70 H 161/71 H Pulse Oximetry 95 95 95 Intake & Output 05/15/18 05/16/18 05/16/18 18:59 06:59 18:59 Intake Total 60 / 60 116 / 116 Balance 60 / 60 116 / 116 Weight 57 kg Intake: IV 116 / 116 SoluMEDROL Inj 1,000 MG In NS 116 / 116 Inj 100 ML @ 116 mls/hr IV.SIG ONCE ONE Rx#:[id number] Oral 60 / 60 Other: Date of Last Bowel Movement 05/11/18 <Dino Day Farideh - 05/16/18 10:47> Vital Signs 05/15/18 09:40 05/15/18 11:41 05/15/18 15:54 Temperature 97.7 F 98.0 F Pulse Rate 69 68 Respiratory Rate 20 20 Blood Pressure 129/60 133/63 Pulse Oximetry 97 95 97 05/15/18 20:00 05/15/18 21:06 05/15/18 21:07 Temperature 98.2 F Pulse Rate 110 H 69 Respiratory Rate 18 Blood Pressure 158/68 H Pulse Oximetry 99 98 05/16/18 01:18 05/16/18 04:23 Temperature 98.2 F 98.3 F Pulse Rate 59 L 69 Respiratory Rate 18 18 Blood Pressure 156/71 H 160/70 H Pulse Oximetry 97 95 Intake & Output 05/15/18 05/16/18 05/16/18 18:59 06:59 18:59 Intake Total 60 / 60 Balance 60 / 60 Weight 57 kg Intake: Oral 60 / 60 Other: Date of Last Bowel Movement 05/11/18 <Keyshawn Shantel Miner - 05/16/18 08:47> Narrative: GENERAL: lying in bed, NAD SKIN: Warm and dry. Sacral area: ~4.5cmx2.5cm, unable to access depth due to sloughing of yellowish tissue, area surrounded by erythema. CARDIOVASCULAR: Regular rate and rhythm. RESPIRATORY: No accessory muscle use. Clear to auscultation. Breath sounds equal bilaterally. MUSCULOSKELETAL: Right AKA present NEUROLOGICAL: Awakened upon verbal command and shaking. PSYCHIATRIC: Flat affect. nonverbal today <Keyshawn MinerShantel Ramses - 05/16/18 09:28> - Urinary Catheter Management Straight Cath placed during this visit: no <Dino Day Farideh - 05/16/18 10:47> no <Keyshawn Shantel Miner - 05/16/18 09:28> Assessment and Plan - Assessment (1) Catatonia associated with another mental disorder Code(s): F06.1 - Catatonic disorder due to known physiological condition Status: Acute (2) PRES (posterior reversible encephalopathy syndrome) Code(s): I67.83 - Posterior reversible encephalopathy syndrome Status: Acute (3) HTN (hypertension) Code(s): I10 - Essential (primary) hypertension Status: Chronic (4) Seizures Code(s): R56.9 - Unspecified convulsions Status: Acute (5) Hyperlipidemia Code(s): E78.5 - Hyperlipidemia, unspecified Status: Chronic (6) Diabetes Code(s): E11.9 - Type 2 diabetes mellitus without complications Status: Chronic (7) Sacral wound Code(s): S31.000A - Unspecified open wound of lower back and pelvis without penetration into retroperitoneum, initial encounter Status: Acute (8) Clavicle fracture Code(s): S42.009A - Fracture of unspecified part of unspecified clavicle, initial encounter for closed fracture Status: Acute (9) Nutrition, metabolism, and development symptoms Code(s): R63.8 - Other symptoms and signs concerning food and fluid intake Status: Acute <Dino Day - 05/16/18 10:47> (1) Catatonia associated with another mental disorder Code(s): F06.1 - Catatonic disorder due to known physiological condition Status: Acute Plan: Per neurology note yesterday recommendation for transfer to [place] or [facility] for further workup and evaluation. Will speak to psych regarding this. 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 Ativan 2mg po q6h scheduled by psychiatry yesterday Coordinating with [facility] to see if will accept pt for ECT Will call daughter today to discuss plan (2) PRES (posterior reversible encephalopathy syndrome) Code(s): I67.83 - Posterior reversible encephalopathy syndrome Status: Acute Plan: MRI findings suggestive of PRES, resolved on repeat imaging yesterday BPs labile, will continue anti-HTN Neurology following, EEG yesterday with slowing After MRI, potentially cleared from neurology to pursue ECT Avoid ACEi (3) HTN (hypertension) Code(s): I10 - Essential (primary) hypertension Status: Chronic Plan: Due to PRES needs tighter BP control per neurology: goal SBP 110-120 * IV pushes with Hydralazine and labetalol as needed for BP control * Titrating PO meds * Hydralazine 100 mg TID * Coreg 25 mg BID * Isosorbide dinitrate 10 mg TIDAC * Amlodipine 10 mg daily (4) Seizures Code(s): R56.9 - Unspecified convulsions Status: Acute Plan: Now with possible repeat seizure vs catalepsy from catatonia EEG with nonspecific encephalopathy MRI/MRA unremarkable except for PRES, resolved Changed to PO Keppra (5) Hyperlipidemia Code(s): E78.5 - Hyperlipidemia, unspecified Status: Chronic Plan: We will continue on her regular medications. (6) Diabetes Code(s): E11.9 - Type 2 diabetes mellitus without complications Status: Chronic Plan: BG at hospital goal now * Holding metformin for now * Low dose SSI (7) Sacral wound Code(s): S31.000A - Unspecified open wound of lower back and pelvis without penetration into retroperitoneum, initial encounter Status: Acute Plan: Found upon skin examination by nursing staff yesterday -Wound care consulted Unstageable due to not being able to assess the depth of the wound 1.Please cleanse wound with normal saline and pat dry. 2. Apply Santyl ointment richard thickness to wound bed 3. Apply saline moistened 2x2 fluffed gauze just over wound bed avoid placing over intact skin. 4. Cover wound with optifoam gentle border 4x4. 5. Change dressing daily. 6. Please turn patient from L side to R side every 2 hours, limit time spent on back to P.T. and meals. 7. Do not use cotton pads on low airloss bed. 8. Limit layers under patient. (8) Clavicle fracture Code(s): S42.009A - Fracture of unspecified part of unspecified clavicle, initial encounter for closed fracture Status: Acute Plan: RUE neurovascularly intact, no deformity noted * Monitor clinically * WBAT RUE (9) Nutrition, metabolism, and development symptoms Code(s): R63.8 - Other symptoms and signs concerning food and fluid intake Status: Acute Plan: Fluids: no IVF Diet: pureed diabetic diet * May end up needing RD consult again; she has poor motivation to eat due to depression/catatonia GI: Famotidine Docusate serum/senna 1 tablet twice daily for bowel regimen DVT: Heparin BID <[employer] R2Shantel - 05/16/18 08:55> - Attending Attestation The exam, history, and the medical decision-making described in the above note were completed with the assistance of the resident physician. I reviewed and agree with the findings presented. I attest that I had a [id number] encounter with the patient on the same day, and personally performed and documented my assessment and findings in the medical record. Very sleepy for today's encounter, with sustained verbal and tactile stimulation she will make eye contact and briefly follow commands but will fall back asleep as soon as stimuli lifted. Neurology giving solumedrol today. As she had been the same mentally for me for all three days that I had seen her before this, my assumption is that her sleepiness is 2/2 benzo use. will coordinate with psychiatry today and see if we need to decrease dosing of ativan. If BP remain elevated in 150s/160s into afternoon will need to increase her isosorbide dosing to 20mg TID. Initial contact made with [facility] to start request for transfer for ECT as recommended by primary team, neurology, and psychiatry. 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 control technician insulin use status Diabetes mellitus complication status : with circulatory complication Diabetes mellitus complication detail: with peripheral angiopathy without gangrene Qualified Code(s): E11.51 - Type 2 diabetes mellitus with diabetic peripheral angiopathy without gangrene (8) Clavicle fracture Qualifiers: Encounter type: subsequent encounter Fracture type: closed Laterality: right <Dino Day K - Last Filed: 05/16/18 10:47> (3) HTN (hypertension) Qualifiers: Hypertension type: other secondary hypertension Qualified Code(s): I15.8 - Other secondary hypertension (5) Hyperlipidemia Qualifiers: Hyperlipidemia type: pure hypercholesterolemia Qualified Code(s): E78.00 - Pure hypercholesterolemia, unspecified; E78.0 - Pure hypercholesterolemia (6) Diabetes Qualifiers: Diabetes mellitus type: type 2 Diabetes mellitus jail insulin use: unspecified jail insulin use status Diabetes mellitus complication status : with circulatory complication Diabetes mellitus complication detail: with peripheral angiopathy without gangrene Qualified Code(s): E11.51 - Type 2 diabetes mellitus with diabetic peripheral angiopathy without gangrene (8) Clavicle fracture Qualifiers: Encounter type: subsequent encounter Fracture type: closed Laterality: right <Shantel Summers G - Last Filed: 05/16/18 08:55> (3) HTN (hypertension) Qualifiers: Hypertension type: other secondary hypertension Qualified Code(s): I15.8 - Other secondary hypertension (5) Hyperlipidemia Qualifiers: Hyperlipidemia type: pure hypercholesterolemia Qualified Code(s): E78.00 - Pure hypercholesterolemia, unspecified; E78.0 - Pure hypercholesterolemia (6) Diabetes Qualifiers: Diabetes mellitus type: type 2 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: unspecified 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 control technician insulin use status Diabetes mellitus complication status : with circulatory complication Diabetes mellitus complication detail: with peripheral angiopathy without gangrene Qualified Code(s): E11.51 - Type 2 diabetes mellitus with diabetic peripheral angiopathy without gangrene (8) Clavicle fracture Qualifiers: Encounter type: subsequent encounter Fracture type: closed Laterality: right <Dino Day - Last Filed: 05/16/18 10:47> (3) HTN (hypertension) Qualifiers: Hypertension type: other secondary hypertension Qualified Code(s): I15.8 - Other secondary hypertension (5) Hyperlipidemia Qualifiers: Hyperlipidemia type: pure hypercholesterolemia Qualified Code(s): E78.00 - Pure hypercholesterolemia, unspecified; E78.0 - Pure hypercholesterolemia (6) Diabetes Qualifiers: Diabetes mellitus type: type 2 Diabetes mellitus jail insulin use: unspecified jail insulin use status Diabetes mellitus complication status : with circulatory complication Diabetes mellitus complication detail: with peripheral angiopathy without gangrene Qualified Code(s): E11.51 - Type 2 diabetes mellitus with diabetic peripheral angiopathy without gangrene (8) Clavicle fracture Qualifiers: Encounter type: subsequent encounter Fracture type: closed Laterality: right
[2018-05-16] MEDS ORDERED: MethylPREDNISolone Sod Suc Inj 1,000 MG in Sodium Chlor 0.9% Inj 100 ML IV.SIG ONE (09:00)
[2018-05-16] MEDS: Senna/Docusate Sodium 8.6/50 MG Tablet PO SCH ×2 (09:12→20:50)
[2018-05-16] MEDS: Heparin - SQ 10,000 UNITS/ML Vial SQ SCH ×2 (09:13→20:50)
[2018-05-16] MEDS: amLODIPine 10 MG Tablet PO SCH (09:13)
[2018-05-16] MEDS: Carvedilol 12.5 MG Tablet PO SCH ×2 (09:13→20:50)
[2018-05-16] MEDS: hydrALAZINE 25 MG Tablet PO SCH ×3 (09:13→17:26)
[2018-05-16] MEDS: Collagenase Oint 30 GM Tube TOPICAL SCH (09:14)
[2018-05-16] MEDS: Famotidine PF Inj 20 MG/2 ML Vial IV.PUSH SCH ×2 (09:15→20:50)
[2018-05-16] MEDS: Insulin Detemir Inj 1,000 UNIT/10 ML Vial SQ SCH ×2 (09:17→20:51)
--- NOTE | 2018-05-16 11:56 | P.PNPSY ---
Subjective Remarks: I have seen this patient today for psychiatric reevaluation. Patient is found sleeping, but arousable. Patient continues to show distant, stuporous, amotivated, with prominent psychomotor retardation, blocking thought and decreased speech production, almost mutism. Patient does have some level of fascial expression, able to say yes and not and she does respond that she is at [place]. Denies pain, denies distress, denies suicidal and homicidal ideation, denies visual and auditory hallucinations. Mental Status Examination Appearance: Appropriate Consciousness: Alert Orientation: Person, Place Motor Activity: Other (Patient is bedridden and currently intubated) Speech: Hesitant, Slow, Other (Whispered) Language: Adequate (Strained) Fund of Knowledge: Adequate (Unknown) Attention and Concentration: Adequate (At times) Memory: Impaired Mood: Anxious, Other (Restricted) Affect: Other (Decreased range and intensity) Thought Process & Associations: Intact Thought Content: Appropriate Hallucination Type: None Delusion Type: None Suicidal Ideation: No Suicidal Plan: No Suicidal Intention: No Homicidal Ideation: No Homicidal Plan: No Homicidal Intention: No Insight: Fair Judgment: Impulsive Assessment and Plan - Assessment (1) Catatonia associated with another mental disorder Code(s): F06.1 - Catatonic disorder due to known physiological condition Status: Acute - Plan Plan: Patient apparently to continue catatonia. Poor response to Ativan 2 mg 4 times per day. We will add Namenda 5 mg twice daily for refractory catatonia, might consider Ativan if patient does not respond. Definitely would benefit of ECT treatment. We will follow-up Justification for Continued Inpatient Stay: No admission indicated per
[2018-05-17] MEDS: Artificial Tears Opth Drops 15 ML Bottle EACH EYE SCH ×4 (00:15→22:04)
[2018-05-17] MEDS: Oral Hygiene Kit OROPHARYNG SCH ×4 (00:15→17:00)
[2018-05-17] MEDS: Insulin NovoLOG Aspart Correctional Sugar Inj SQ SCH ×4 (01:44→17:42)
--- NOTE | 2018-05-17 07:33 | P.PNNEU ---
Subjective Active Medications: Active Medications Acetaminophen (Tylenol Liq) 650 mg NG/OG Q6H PRN PRN Reason: PAIN 1-10 AND/OR FEVER >101F Al Hydroxide/Mg Hydroxide (Milk Of Magnesia Liq) 30 ml PO Q12H PRN PRN Reason: Mild Constipation Albuterol (Albuterol Neb (Prn)) 2.5 mg NEB Q2HR NEB PRN PRN Reason: DYSPNEA Amlodipine Besylate (Norvasc) 10 mg PO DAILY [facility] Last Admin: 05/16/18 09:13 Dose: 10 mg Artificial Tears (Tears Naturale Opth Drops) 1 drop EACH EYE Q8H [facility] Last Admin: 05/17/18 06:29 Dose: 1 drop Aspirin (Aspirin Chew) 81 mg NG/OG DAILY [facility] Last Admin: 05/16/18 09:13 Dose: 81 mg Atorvastatin Calcium (Lipitor) 40 mg NG/OG HS [facility] Last Admin: 05/16/18 20:50 Dose: 40 mg Bisacodyl (Dulcolax Supp) 10 mg RECTAL DAILY PRN PRN Reason: SEVERE CONSITIPATION Carvedilol (Coreg) 25 mg PO BID [facility] Last Admin: 05/16/18 20:50 Dose: 25 mg Collagenase (Santyl Oint) 1 applicatio TOPICAL DAILY [facility] Last Admin: 05/16/18 09:14 Dose: 1 applicatio Dextrose (D50w Vial) 50 ml IV.PUSH UNSCH PRN PRN Reason: PER HYPOGLYCEMIA PROTOCOL Famotidine (Pepcid Pf Inj) 20 mg IV.PUSH Q12HR [facility] Last Admin: 05/16/18 20:50 Dose: 20 mg Gabapentin (Neurontin) 600 mg PO BID [facility] Last Admin: 05/01/18 08:56 Dose: Not Given Glucagon (Glucagon Inj) 1 mg OTHER PRN PRN PRN Reason: for Hypoglycemia Protocol Heparin Sodium (Porcine) (Heparin Inj) 5,000 units SQ Q12HR [facility] Last Admin: 05/16/18 20:50 Dose: 5,000 units Hydralazine HCl (Apresoline Inj) 10 mg IV.PUSH Q1H PRN PRN Reason: sbp > 140 Last Admin: 05/08/18 22:04 Dose: 10 mg Hydralazine HCl (Apresoline) 100 mg PO TID [facility] Last Admin: 05/16/18 17:26 Dose: 100 mg Fentanyl (Fentanyl 10 Mcg/Ml Premix Drip) 2,500 mcg in 250 mls @ 5 mls/hr IV.SIG TITRATE PRN; Protocol PRN Reason: Per Protocol Insulin Aspart (Novolog Insulin Correctional Sugar Inj) 0 unit SQ Q6HR [facility]; Protocol Last Admin: 05/17/18 06:29 Dose: 4 unit Insulin Detemir (Levemir Inj) 5 unit SQ BID [facility] Last Admin: 05/16/18 20:51 Dose: 5 unit Isosorbide Dinitrate (Isordil) 10 mg PO TIDAC [facility] Last Admin: 05/16/18 17:26 Dose: 10 mg Labetalol HCl (Trandate Inj) 10 mg IV.PUSH Q1H PRN PRN Reason: Sbp>140, Dbp>90, Hr>65 Last Admin: 05/10/18 23:29 Dose: 10 mg Lactulose (Lactulose Liq) 30 ml PO DAILY PRN PRN Reason: SEVERE CONSITIPATION Lorazepam (Ativan) 2 mg PO Q6H [facility] Last Admin: 05/17/18 04:20 Dose: 2 mg Memantine (Namenda) 5 mg PO BID [facility] Last Admin: 05/16/18 20:50 Dose: 5 mg Miscellaneous Medication () 1 each OROPHARYNG 0000,0400,1200,1600 [facility] Last Admin: 05/17/18 04:03 Dose: Not Given Ondansetron HCl (Zofran Inj) 4 mg IV.PUSH Q6H PRN PRN Reason: NAUSEA Senna/Docusate Sodium (Aleah-Colace) 1 tab PO BID [facility] Last Admin: 05/16/18 20:50 Dose: 1 tab Sennosides (Senokot) 17.2 mg PO Q12H PRN PRN Reason: Moderate Constipation Sodium Chloride (Ns Flush) 2 ml IV.FLUSH BID [facility] Last Admin: 05/16/18 20:51 Dose: 2 ml Sodium Chloride (Ns Flush) 2 ml IV.FLUSH UNSCH PRN PRN Reason: FLUSH AFTER USING IV ACCESS Last Admin: 05/06/18 08:32 Dose: 2 ml Thiamine HCl (Thiamine Inj) 100 mg IM DAILY [facility] Last Admin: 05/16/18 09:13 Dose: 100 mg Allergies/Adverse Reactions: Allergies Allergy/AdvReac Type Severity Reaction Status Date / Time JACE Inhibitors Allergy Swelling Verified 05/06/18 12:26 of Lip/Tongue/Throat iodine Allergy Swelling Verified 04/19/18 15:50 Physical Exam Vital signs: Vital Signs 05/16/18 07:35 05/16/18 08:00 05/16/18 12:00 Temperature 98.7 F Pulse Rate 68 65 62 Respiratory Rate 20 Blood Pressure 161/71 H Pulse Oximetry 95 95 05/16/18 12:30 05/16/18 14:52 05/16/18 16:00 Temperature 97.3 F L Pulse Rate 61 68 Respiratory Rate 20 16 Blood Pressure 140/64 Pulse Oximetry 94 L 05/16/18 16:30 05/16/18 20:00 05/16/18 21:33 Temperature 97.8 F 98.0 F Pulse Rate 66 74 Respiratory Rate 20 20 Blood Pressure 136/62 143/63 H Pulse Oximetry 97 94 L 97 05/17/18 00:00 05/17/18 02:32 05/17/18 02:34 Temperature 97.9 F Pulse Rate 80 Respiratory Rate 17 16 Blood Pressure 185/82 H 167/83 H Pulse Oximetry 94 L 05/17/18 04:00 05/17/18 04:26 Temperature 98.3 F Pulse Rate 83 Respiratory Rate 16 16 Blood Pressure 147/87 H Pulse Oximetry 95 Intake & Output 05/16/18 05/17/18 05/17/18 18:59 06:59 18:59 Intake Total 116 / 116 Balance 116 / 116 Weight 57 kg Intake: IV 116 / 116 SoluMEDROL Inj 1,000 MG In NS 116 / 116 Inj 100 ML @ 116 mls/hr IV.SIG ONCE ONE Rx#:[id number] Other: # Incontinent Voids 1 3 Narrative: not interacting moves a ll - Urinary Catheter Management Straight Cath placed during this visit: no Objective Laboratory Results - last 24 hr 05/13/18 05/16/18 05/16/18 19:17 11:50 16:50 Puncture Site Right radial Patient Temperature 98.6 O2 Saturation 91 ABG pH 7.49 H ABG pCO2 34 L ABG pO2 67 ABG HCO3 26 ABG O2 Content 14.8 ABG Base Excess 2.4 H ABG Methemoglobin 1.6 Jorge Test Present Hemoglobin 11.6 L Carboxyhemoglobin 0.8 O2 Delivery Device Nasal cannula Liter Flow 3.00 Critical Value No POC Glucose 259 H 212 H 05/16/18 05/17/18 05/17/18 20:48 00:33 06:26 Puncture Site Patient Temperature O2 Saturation ABG pH ABG pCO2 ABG pO2 ABG HCO3 ABG O2 Content ABG Base Excess ABG Methemoglobin Jorge Test Hemoglobin Carboxyhemoglobin O2 Delivery Device Liter Flow Critical Value POC Glucose 247 H 239 H 202 H 05/17/18 07:21 Puncture Site Patient Temperature O2 Saturation ABG pH ABG pCO2 ABG pO2 ABG HCO3 ABG O2 Content ABG Base Excess ABG Methemoglobin Jorge Test Hemoglobin Carboxyhemoglobin O2 Delivery Device Liter Flow Critical Value POC Glucose 176 H Microbiology 05/02/18 11:30 Fungal Smear - Final Cerebral Spinal Fluid - Lumbar Puncture No fungal elements seen Fungal Culture - Preliminary No growth in 2 weeks 05/02/18 11:30 Acid Fast Bacilli Smear - Final Cerebral Spinal Fluid - Lumbar Puncture No acid fast bacilli seen Mycobacterial Culture - Preliminary No growth in 2 weeks Review/Management - Diagnosis (1) Hypertensive encephalopathy Code(s): I67.4 - Hypertensive encephalopathy Status: Acute Current Visit: Yes (2) HTN (hypertension) Code(s): I10 - Essential (primary) hypertension Status: Chronic Current Visit: No (3) Dementia Code(s): F03.90 - Unspecified dementia without behavioral disturbance Status: Acute Current Visit: No (4) Seizures Code(s): R56.9 - Unspecified convulsions Status: Acute Current Visit: No (5) Anxiety Code(s): F41.9 - Anxiety disorder, unspecified Status: Acute Current Visit: No - Review/Management Plan: 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 may have element of PRES as noted in prior notes recs check csf studies-pending bp control Thiamine supplementation follow exam Dr. Mehta to follow in a.m. 05/01/18 mri loops like PRES mra and mrv and labs all neg keep bp 110-120/ LP today eeg neg on keppra --------- 05/02/18 looks a little better mri repeat yest no change pres bp better keep 110-120/ await LP needs done today!! on keppra 05/03/18 mri no change eeg neg LP neg bp better check ct abd and pelvis and chest paraneo 05/06/18 looks so much better neurowise check paraneoplastic labs PRES clinically better thiamine pend will recheck mri in few days keep bp down 110-120/ ct chest and abd ok 05/07/18 sedated i [facility] med team pt looked to have early changes of pres 2 days after admit and bp initially 186/ in er the Question of which came first the pres or the catatonia ? i think overall the pres tiesha caused the ms changes as bp came down she is so much better yest i dw nurse hold sedative should awaken she was on seroquel and lexapro i believe b4 admit and nms considered with drastic improvement clinically would not rec ect need to inc po meds for bp control i see no major hypotension documented when not on iv meds 05/08/18 will need to keep off sedatives i andrei nurse keep bp 110-120/ possible extubation today as above i am not convinced she had catatonia b4 pres started as bp taken in er day b4 ms changes in 180/ range regardless with ms improvement with rx of bp i am not recommending ect at this time 05/09/17 130-170/ we need to keep bp 110-120 at all times more awake off sedatives working on extubation 05/10/18 would like bp 110-120/ recheck mri looking well overall await extubation when can will fu sunday call neuro speech correction consultant if any ? 05/13/18 better than b4 intubation but stillslow to respond mri is better and looks like small old smattering of infarcts left high posterior cortex pres improved keep bp down will check eeg if that looks ok and not improving ms garcia daily consider ect us echo neg check holter old cva 05/14/18 not doing much today as far as verbally abg nl eeg slow will recheck mri and if pres continues abated ok for ect check spep daughter states was nl mentally 2 day prior to admission when took narcotics seemed to start ms change holter pend daughter knows of old left cva yrs ago 05/15/18 mri pres resolved spep pend holter neg old cva no better my thoughts would be to see [facility] ect since she is a complex and not straight forward case for second opinion 05/16/18 if anything a little worse will try 1 gm solumedrol rec [facility] for ect psych started benzo ------- 05/17/18 not any better my thoughts are she should be transfered for ect stat as morbidity mortality rate high w/o it (2) HTN (hypertension) Qualifiers: Hypertension type: other secondary hypertension Qualified Code(s): I15.8 - Other secondary hypertension
[2018-05-17] MEDS: hydrALAZINE 25 MG Tablet PO SCH ×3 (08:38→17:42)
[2018-05-17] MEDS: amLODIPine 10 MG Tablet PO SCH (08:38)
[2018-05-17] MEDS: Carvedilol 12.5 MG Tablet PO SCH ×2 (08:38→20:16)
[2018-05-17] MEDS: Senna/Docusate Sodium 8.6/50 MG Tablet PO SCH ×2 (08:38→20:16)
[2018-05-17] MEDS: Heparin - SQ 10,000 UNITS/ML Vial SQ SCH ×2 (08:39→20:12)
[2018-05-17] MEDS: Famotidine PF Inj 20 MG/2 ML Vial IV.PUSH SCH ×2 (08:39→20:07)
[2018-05-17] MEDS: Insulin Detemir Inj 1,000 UNIT/10 ML Vial SQ SCH ×2 (08:40→20:06)
[2018-05-17] MEDS: Collagenase Oint 30 GM Tube TOPICAL SCH (08:40)
[2018-05-17 08:42] LABS: Hematocrit 32.9 % (35.0-46.0); Hemoglobin 11.3 gm/dL (11.6-15.3); Mean Corpuscular HGB Conc 34.2 % (32.0-36.0); Mean Corpuscular Hemoglobin 31.3 pg (27.0-34.0); Mean Corpuscular Volume 91.7 fL (80.0-100.0); Mean Platelet Volume 9.6 fL (7.0-11.0); Platelet Count 204 th/mm3 (150-450); Red Blood Count 3.59 mil/mm3 (4.00-5.30); White Blood Count 10.9 th/mm3 (4.0-11.0)
[2018-05-17 09:11] LABS: Anion Gap 8 meq/L (5-15); Blood Urea Nitrogen 25 mg/dL (7-18); Calcium 8.4 mg/dL (8.5-10.1); Chloride 105 meq/L (98-107); Glomerular Filtration Rate Greater Than 89 mL/min (>89); Glucose,Random 176 mg/dL (74-106); Potassium 3.6 meq/L (3.5-5.1); Sodium 140 meq/L (136-145)
--- NOTE | 2018-05-17 11:02 | P.PNFP ---
Subjective Interval history: Patient seen and examined this morning. She was unable to answer my questions due to her mental status. <Keyshawn Shantel Miner G - 05/17/18 14:16> Results - Labs Result diagrams: 05/17/18 07:51 05/17/18 07:51 <HernanDino gooden - 05/17/18 14:47> Abnormal lab results 05/13/18 05/16/18 05/16/18 Range/Units 19:17 16:50 20:48 RBC (4.00-5.30) mil/mm3 Hgb (11.6-15.3) gm/dL Hct (35.0-46.0) % ABG pH 7.49 H (7.380-7.420) ABG pCO2 34 L (38-42) mmHg ABG Base Excess 2.4 H (-2-2) mmol/L Hemoglobin 11.6 L (12.0-16.0) G/DL BUN (7-18) mg/dL POC Glucose 212 H 247 H (68-110) mg/dl Random Glucose (74-106) mg/dL Calcium (8.5-10.1) mg/dL 05/17/18 05/17/18 05/17/18 Range/Units 00:33 06:26 07:21 RBC (4.00-5.30) mil/mm3 Hgb (11.6-15.3) gm/dL Hct (35.0-46.0) % ABG pH (7.380-7.420) ABG pCO2 (38-42) mmHg ABG Base Excess (-2-2) mmol/L Hemoglobin (12.0-16.0) G/DL BUN (7-18) mg/dL POC Glucose 239 H 202 H 176 H (68-110) mg/dl Random Glucose (74-106) mg/dL Calcium (8.5-10.1) mg/dL 05/17/18 05/17/18 05/17/18 Range/Units 07:51 07:51 11:29 RBC 3.59 L (4.00-5.30) mil/mm3 Hgb 11.3 L (11.6-15.3) gm/dL Hct 32.9 L (35.0-46.0) % ABG pH (7.380-7.420) ABG pCO2 (38-42) mmHg ABG Base Excess (-2-2) mmol/L Hemoglobin (12.0-16.0) G/DL BUN 25 H (7-18) mg/dL POC Glucose 211 H (68-110) mg/dl Random Glucose 176 H (74-106) mg/dL Calcium 8.4 L (8.5-10.1) mg/dL Short CBC 05/17/18 Range/Units 07:51 WBC 10.9 (4.0-11.0) th/mm3 Hgb 11.3 L (11.6-15.3) gm/dL Hct 32.9 L (35.0-46.0) % Plt Count 204 (150-450) th/mm3 BMP 05/17/18 07:51 Sodium 140 Potassium 3.6 Chloride 105 Carbon Dioxide 27.0 BUN 25 H Creatinine 0.64 Calcium 8.4 L <Dino Day - 05/17/18 14:47> Abnormal lab results 05/13/18 05/16/18 05/16/18 Range/Units 19:17 11:50 16:50 RBC (4.00-5.30) mil/mm3 Hgb (11.6-15.3) gm/dL Hct (35.0-46.0) % ABG pH 7.49 H (7.380-7.420) ABG pCO2 34 L (38-42) mmHg ABG Base Excess 2.4 H (-2-2) mmol/L Hemoglobin 11.6 L (12.0-16.0) G/DL BUN (7-18) mg/dL POC Glucose 259 H 212 H (68-110) mg/dl Random Glucose (74-106) mg/dL Calcium (8.5-10.1) mg/dL 05/16/18 05/17/18 05/17/18 Range/Units 20:48 00:33 06:26 RBC (4.00-5.30) mil/mm3 Hgb (11.6-15.3) gm/dL Hct (35.0-46.0) % ABG pH (7.380-7.420) ABG pCO2 (38-42) mmHg ABG Base Excess (-2-2) mmol/L Hemoglobin (12.0-16.0) G/DL BUN (7-18) mg/dL POC Glucose 247 H 239 H 202 H (68-110) mg/dl Random Glucose (74-106) mg/dL Calcium (8.5-10.1) mg/dL 05/17/18 05/17/18 05/17/18 Range/Units 07:21 07:51 07:51 RBC 3.59 L (4.00-5.30) mil/mm3 Hgb 11.3 L (11.6-15.3) gm/dL Hct 32.9 L (35.0-46.0) % ABG pH (7.380-7.420) ABG pCO2 (38-42) mmHg ABG Base Excess (-2-2) mmol/L Hemoglobin (12.0-16.0) G/DL BUN 25 H (7-18) mg/dL POC Glucose 176 H (68-110) mg/dl Random Glucose 176 H (74-106) mg/dL Calcium 8.4 L (8.5-10.1) mg/dL Short CBC 05/17/18 Range/Units 07:51 WBC 10.9 (4.0-11.0) th/mm3 Hgb 11.3 L (11.6-15.3) gm/dL Hct 32.9 L (35.0-46.0) % Plt Count 204 (150-450) th/mm3 BMP 05/17/18 07:51 Sodium 140 Potassium 3.6 Chloride 105 Carbon Dioxide 27.0 BUN 25 H Creatinine 0.64 Calcium 8.4 L <Shantel Summers G - 05/17/18 11:02> Physical Exam Vital signs: Vital Signs 05/16/18 14:52 05/16/18 16:00 05/16/18 16:30 Temperature 97.8 F Pulse Rate 68 66 Respiratory Rate 16 20 Blood Pressure 136/62 Pulse Oximetry 97 05/16/18 20:00 05/16/18 21:33 05/17/18 00:00 Temperature 98.0 F 97.9 F Pulse Rate 74 80 Respiratory Rate 20 17 Blood Pressure 143/63 H 185/82 H Pulse Oximetry 94 L 97 94 L 05/17/18 02:32 05/17/18 02:34 05/17/18 04:00 Temperature 98.3 F Pulse Rate 83 Respiratory Rate 16 16 Blood Pressure 167/83 H 147/87 H Pulse Oximetry 95 05/17/18 04:26 05/17/18 07:44 05/17/18 08:00 Temperature 98.0 F Pulse Rate 78 75 Respiratory Rate 16 20 Blood Pressure 156/72 H Pulse Oximetry 95 95 05/17/18 11:35 Temperature 98.1 F Pulse Rate 77 Respiratory Rate 20 Blood Pressure 125/58 L Pulse Oximetry 94 L Intake & Output 05/16/18 05/17/18 05/17/18 18:59 06:59 18:59 Intake Total 116 / 116 Balance 116 / 116 Weight 57 kg Intake: IV 116 / 116 SoluMEDROL Inj 1,000 MG In NS 116 / 116 Inj 100 ML @ 116 mls/hr IV.SIG ONCE ONE Rx#:[id number] Other: # Incontinent Voids 1 3 <Dino Day K - 05/17/18 14:47> Vital Signs 05/16/18 12:00 05/16/18 12:30 05/16/18 14:52 Temperature 97.3 F L Pulse Rate 62 61 Respiratory Rate 20 16 Blood Pressure 140/64 Pulse Oximetry 94 L 05/16/18 16:00 05/16/18 16:30 05/16/18 20:00 Temperature 97.8 F 98.0 F Pulse Rate 68 66 74 Respiratory Rate 20 20 Blood Pressure 136/62 143/63 H Pulse Oximetry 97 94 L 05/16/18 21:33 05/17/18 00:00 05/17/18 02:32 Temperature 97.9 F Pulse Rate 80 Respiratory Rate 17 16 Blood Pressure 185/82 H Pulse Oximetry 97 94 L 05/17/18 02:34 05/17/18 04:00 05/17/18 04:26 Temperature 98.3 F Pulse Rate 83 Respiratory Rate 16 16 Blood Pressure 167/83 H 147/87 H Pulse Oximetry 95 05/17/18 07:44 05/17/18 08:00 Temperature 98.0 F Pulse Rate 78 75 Respiratory Rate 20 Blood Pressure 156/72 H Pulse Oximetry 95 95 Intake & Output 05/16/18 05/17/18 05/17/18 18:59 06:59 18:59 Intake Total 116 / 116 Balance 116 / 116 Weight 57 kg Intake: IV 116 / 116 SoluMEDROL Inj 1,000 MG In NS 116 / 116 Inj 100 ML @ 116 mls/hr IV.SIG ONCE ONE Rx#:[id number] Other: # Incontinent Voids 1 3 <Shantel Summers 05/17/18 11:02> Narrative: GENERAL: lying in bed, NAD SKIN: Warm and dry. Sacral area: ~4.5cmx2.5cm, unable to access depth due to sloughing of yellowish tissue, area surrounded by erythema. CARDIOVASCULAR: Regular rate and rhythm. RESPIRATORY: No accessory muscle use. Clear to auscultation. Breath sounds equal bilaterally. MUSCULOSKELETAL: Right AKA present NEUROLOGICAL: Awakened upon verbal command and shaking. PSYCHIATRIC: Flat affect. nonverbal today. Did wiggle toes upon command. <Shantel Summers 05/17/18 14:16> - Urinary Catheter Management Straight Cath placed during this visit: no <Dino Day 05/17/18 14:47> no <Shantel Summers 05/17/18 14:16> Assessment and Plan - Assessment (1) Catatonia associated with another mental disorder Code(s): F06.1 - Catatonic disorder due to known physiological condition Status: Acute (2) PRES (posterior reversible encephalopathy syndrome) Code(s): I67.83 - Posterior reversible encephalopathy syndrome Status: Acute (3) HTN (hypertension) Code(s): I10 - Essential (primary) hypertension Status: Chronic (4) Seizures Code(s): R56.9 - Unspecified convulsions Status: Acute (5) Hyperlipidemia Code(s): E78.5 - Hyperlipidemia, unspecified Status: Chronic (6) Diabetes Code(s): E11.9 - Type 2 diabetes mellitus without complications Status: Chronic (7) Sacral wound Code(s): S31.000A - Unspecified open wound of lower back and pelvis without penetration into retroperitoneum, initial encounter Status: Acute (8) Clavicle fracture Code(s): S42.009A - Fracture of unspecified part of unspecified clavicle, initial encounter for closed fracture Status: Acute (9) Nutrition, metabolism, and development symptoms Code(s): R63.8 - Other symptoms and signs concerning food and fluid intake Status: Acute <PaulinocorneliaDino gooden 05/17/18 14:47> (1) Catatonia associated with another mental disorder Code(s): F06.1 - Catatonic disorder due to known physiological condition Status: Acute Plan: Per neurology note yesterday recommendation for transfer to [facility] or [facility] for further workup and evaluation. Will speak to psych regarding this. 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 Ativan 2mg po q6h scheduled by psychiatry yesterday [facility] see if [facility] pt for ECT Will attempt to discuss plan with daughter again today, call was not returned yesterday. (2) PRES (posterior reversible encephalopathy syndrome) Code(s): I67.83 - Posterior reversible encephalopathy syndrome Status: Acute Plan: MRI findings suggestive of PRES, resolved on repeat imaging yesterday BPs labile, will continue anti-HTN Neurology following, advises stat transfer for ECT Avoid ACEi (3) HTN (hypertension) Code(s): I10 - Essential (primary) hypertension Status: Chronic Plan: Due to PRES needs tighter BP control per neurology: goal SBP 110-120 * IV pushes with Hydralazine and labetalol as needed for BP control * Titrating PO meds * Hydralazine 100 mg TID * Coreg 25 mg BID * Isosorbide dinitrate increased to 20 mg TIDAC today after elevated BPs overnight * Amlodipine 10 mg daily (4) Seizures Code(s): R56.9 - Unspecified convulsions Status: Acute Plan: Now with possible repeat seizure vs catalepsy from catatonia EEG with nonspecific encephalopathy MRI/MRA unremarkable except for PRES, resolved Changed to PO Keppra (5) Hyperlipidemia Code(s): E78.5 - Hyperlipidemia, unspecified Status: Chronic Plan: We will continue on her regular medications. (6) Diabetes Code(s): E11.9 - Type 2 diabetes mellitus without complications Status: Chronic Plan: BG at hospital goal now * Holding metformin for now * Low dose SSI (7) Sacral wound Code(s): S31.000A - Unspecified open wound of lower back and pelvis without penetration into retroperitoneum, initial encounter Status: Acute Plan: Found upon skin examination by nursing staff yesterday -Wound care consulted Unstageable due to not being able to assess the depth of the wound 1.Please cleanse wound with normal saline and pat dry. 2. Apply Santyl ointment richard thickness to wound bed 3. Apply saline moistened 2x2 fluffed gauze just over wound bed avoid placing over intact skin. 4. Cover wound with optifoam gentle border 4x4. 5. Change dressing daily. 6. Please turn patient from L side to R side every 2 hours, limit time spent on back to P.T. and meals. 7. Do not use cotton pads on low airloss bed. 8. Limit layers under patient. (8) Clavicle fracture Code(s): S42.009A - Fracture of unspecified part of unspecified clavicle, initial encounter for closed fracture Status: Acute Plan: RUE neurovascularly intact, no deformity noted * Monitor clinically * WBAT RUE (9) Nutrition, metabolism, and development symptoms Code(s): R63.8 - Other symptoms and signs concerning food and fluid intake Status: Acute Plan: Fluids: no IVF Diet: pureed diabetic diet * May end up needing RD consult again; she has poor motivation to eat due to depression/catatonia GI: Famotidine Docusate serum/senna 1 tablet twice daily for bowel regimen DVT: Heparin BID <Keyshawn MinerShantel G - 05/17/18 14:11> - Attending Attestation The exam, history, and the medical decision-making described in the above note were completed with the assistance of the resident physician. I reviewed and agree with the findings presented. I attest that I had a [id number] encounter with the patient on the same day, and personally performed and documented my assessment and findings in the medical record. Seems the same today. she will follow commands if woken up but mostly wants to sleep, continues with mouth automatisms. psych agrees with diagnosis of catatonia. Neuro and psych both believe she should be transferred for trial of ECT and are documenting this[facility] They have Dr Mahajan's cell phone number and mine to contact BP labile and difficult to control, increased isosorbide dinitrate today. Ativan does not appear to be helping at this point, psych added namenda for refractory catatonia Discuss decreasing ativan <Dino Day K - 05/17/18 14:47> <Keyshawn Shantel Miner G - Last Filed: 05/17/18 14:11> (3) HTN (hypertension) Qualifiers: Hypertension type: other secondary hypertension Qualified Code(s): I15.8 - Other secondary hypertension (5) Hyperlipidemia Qualifiers: Hyperlipidemia type: pure hypercholesterolemia Qualified Code(s): E78.00 - Pure hypercholesterolemia, unspecified; E78.0 - Pure hypercholesterolemia (6) Diabetes Qualifiers: Diabetes mellitus type: type 2 Diabetes mellitus prison insulin use: 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 Diabetes mellitus complication status : with circulatory complication Diabetes mellitus complication detail: with peripheral angiopathy without gangrene Qualified Code(s): E11.51 - Type 2 diabetes mellitus with diabetic peripheral angiopathy without gangrene (8) Clavicle fracture Qualifiers: Encounter type: subsequent encounter Fracture type: closed Laterality: right <Dino Day K - Last Filed: 05/17/18 14:47> (3) HTN (hypertension) Qualifiers: Hypertension type: other secondary hypertension Qualified Code(s): I15.8 - Other secondary hypertension (5) Hyperlipidemia Qualifiers: Hyperlipidemia type: pure hypercholesterolemia Qualified Code(s): E78.00 - Pure hypercholesterolemia, unspecified; E78.0 - Pure hypercholesterolemia (6) Diabetes Qualifiers: Diabetes mellitus type: type 2 Diabetes mellitus prison insulin use: unspecified prison insulin use status Diabetes mellitus complication status : with circulatory complication Diabetes mellitus complication detail: with peripheral angiopathy without gangrene Qualified Code(s): E11.51 - Type 2 diabetes mellitus with diabetic peripheral angiopathy without gangrene (8) Clavicle fracture Qualifiers: Encounter type: subsequent encounter Fracture type: closed Laterality: right <Shanetl Summers - Last Filed: 05/17/18 14:11> (3) HTN (hypertension) Qualifiers: Hypertension type: other secondary hypertension Qualified Code(s): I15.8 - Other secondary hypertension (5) Hyperlipidemia Qualifiers: Hyperlipidemia type: pure hypercholesterolemia Qualified Code(s): E78.00 - Pure hypercholesterolemia, unspecified; E78.0 - Pure hypercholesterolemia (6) Diabetes Qualifiers: Diabetes mellitus type: type 2 Diabetes 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 <Dino Day - Last Filed: 05/17/18 14:47> (3) HTN (hypertension) Qualifiers: Hypertension type: other secondary hypertension Qualified Code(s): I15.8 - Other secondary hypertension (5) Hyperlipidemia Qualifiers: Hyperlipidemia type: pure hypercholesterolemia Qualified Code(s): E78.00 - Pure hypercholesterolemia, unspecified; E78.0 - Pure hypercholesterolemia (6) Diabetes Qualifiers: Diabetes mellitus type: type 2 Diabetes 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
[2018-05-18] MEDS: Oral Hygiene Kit OROPHARYNG SCH ×4 (00:21→16:14)
[2018-05-18] MEDS: Insulin NovoLOG Aspart Correctional Sugar Inj SQ SCH ×4 (00:21→17:53)
--- NOTE | 2018-05-18 08:45 | P.PNFP ---
Subjective Interval history: Pt seen and examined this morning. Answered no to if she had any pain. And yes to if she was breathing ok. Would not answer any further questions. Fell back asleep. <Keyshawn Shantel Miner Ramses - 05/18/18 08:44> Results - Labs Result diagrams: 05/17/18 07:51 05/17/18 07:51 <Dino Day - 05/18/18 11:13> Abnormal lab results 05/14/18 05/17/18 05/17/18 Range/Units 08:58 11:29 17:42 POC Glucose 211 H 120 H (68-110) mg/dl Albumin (PEP) 2.33 L (3.50-5.00) gm/dL Albumin/Globulin Ratio 0.84 L (1.39-2.23) 05/17/18 05/18/18 05/18/18 Range/Units 19:57 00:15 07:50 POC Glucose 146 H 133 H 111 H (68-110) mg/dl Albumin (PEP) (3.50-5.00) gm/dL Albumin/Globulin Ratio (1.39-2.23) <Dino Day - 05/18/18 11:13> Abnormal lab results 05/14/18 05/17/18 05/17/18 Range/Units 08:58 07:51 07:51 RBC 3.59 L (4.00-5.30) mil/mm3 Hgb 11.3 L (11.6-15.3) gm/dL Hct 32.9 L (35.0-46.0) % BUN 25 H (7-18) mg/dL POC Glucose (68-110) mg/dl Random Glucose 176 H (74-106) mg/dL Calcium 8.4 L (8.5-10.1) mg/dL Albumin (PEP) 2.33 L (3.50-5.00) gm/dL Albumin/Globulin Ratio 0.84 L (1.39-2.23) 05/17/18 05/17/18 05/17/18 Range/Units 11:29 17:42 19:57 RBC (4.00-5.30) mil/mm3 Hgb (11.6-15.3) gm/dL Hct (35.0-46.0) % BUN (7-18) mg/dL POC Glucose 211 H 120 H 146 H (68-110) mg/dl Random Glucose (74-106) mg/dL Calcium (8.5-10.1) mg/dL Albumin (PEP) (3.50-5.00) gm/dL Albumin/Globulin Ratio (1.39-2.23) 05/18/18 05/18/18 Range/Units 00:15 07:50 RBC (4.00-5.30) mil/mm3 Hgb (11.6-15.3) gm/dL Hct (35.0-46.0) % BUN (7-18) mg/dL POC Glucose 133 H 111 H (68-110) mg/dl Random Glucose (74-106) mg/dL Calcium (8.5-10.1) mg/dL Albumin (PEP) (3.50-5.00) gm/dL Albumin/Globulin Ratio (1.39-2.23) Short CBC 05/17/18 Range/Units 07:51 WBC 10.9 (4.0-11.0) th/mm3 Hgb 11.3 L (11.6-15.3) gm/dL Hct 32.9 L (35.0-46.0) % Plt Count 204 (150-450) th/mm3 BMP 05/17/18 07:51 Sodium 140 Potassium 3.6 Chloride 105 Carbon Dioxide 27.0 BUN 25 H Creatinine 0.64 Calcium 8.4 L <Shantel Summers G - 05/18/18 08:44> Physical Exam Vital signs: Vital Signs 05/17/18 11:35 05/17/18 16:00 05/17/18 19:51 Temperature 98.1 F 98.3 F Pulse Rate 77 72 Respiratory Rate 20 20 14 Blood Pressure 125/58 L 118/59 L Pulse Oximetry 94 L 94 L 05/17/18 20:00 05/18/18 00:00 05/18/18 04:00 Temperature 98.3 F 98.1 F 98.2 F Pulse Rate 65 74 66 Respiratory Rate 19 14 18 Blood Pressure 120/59 L 106/57 L 134/61 Pulse Oximetry 97 95 94 L 05/18/18 07:35 05/18/18 08:00 05/18/18 09:24 Temperature 98.2 F Pulse Rate 70 62 Respiratory Rate 20 18 Blood Pressure 148/76 H Pulse Oximetry 97 05/18/18 09:25 Temperature Pulse Rate Respiratory Rate Blood Pressure Pulse Oximetry 97 Intake & Output 05/17/18 05/18/18 05/18/18 18:59 06:59 18:59 Weight 57.3 kg Other: # Voids 1 # Incontinent Voids 1 4 <Dino Day - 05/18/18 11:13> Vital Signs 05/17/18 11:35 05/17/18 16:00 05/17/18 19:51 Temperature 98.1 F 98.3 F Pulse Rate 77 72 Respiratory Rate 20 20 14 Blood Pressure 125/58 L 118/59 L Pulse Oximetry 94 L 94 L 05/17/18 20:00 05/18/18 00:00 05/18/18 04:00 Temperature 98.3 F 98.1 F 98.2 F Pulse Rate 65 74 66 Respiratory Rate 19 14 18 Blood Pressure 120/59 L 106/57 L 134/61 Pulse Oximetry 97 95 94 L 05/18/18 07:35 Temperature 98.2 F Pulse Rate 70 Respiratory Rate 20 Blood Pressure 148/76 H Pulse Oximetry 97 Intake & Output 05/17/18 05/18/18 05/18/18 18:59 06:59 18:59 Weight 57.3 kg Other: # Voids 1 # Incontinent Voids 1 4 <Shantel Summers - 05/18/18 08:44> Narrative: GENERAL: lying in bed, NAD SKIN: Warm and dry. Sacral area: ~4.5cmx2.5cm, unable to access depth due to sloughing of yellowish tissue, area surrounded by erythema. CARDIOVASCULAR: Regular rate and rhythm. RESPIRATORY: No accessory muscle use. Soft wheezes. Breath sounds equal bilaterally. MUSCULOSKELETAL: Right AKA present NEUROLOGICAL: Easily awakened. Upon to fully assess neurological due to mental state. PSYCHIATRIC: Flat affect. Did wiggle toes upon command. <Shantel Summers - 05/18/18 08:44> - Constitutional morbidly obese <Shantel Summers - 05/18/18 08:44> - Urinary Catheter Management Straight Cath placed during this visit: no <PaulinomagdalenoDino Gong - 05/18/18 11:13> no <Shantel Summers - 05/18/18 08:44> Assessment and Plan - Assessment (1) Catatonia associated with another mental disorder Code(s): F06.1 - Catatonic disorder due to known physiological condition Status: Acute (2) PRES (posterior reversible encephalopathy syndrome) Code(s): I67.83 - Posterior reversible encephalopathy syndrome Status: Acute (3) HTN (hypertension) Code(s): I10 - Essential (primary) hypertension Status: Chronic (4) Seizures Code(s): R56.9 - Unspecified convulsions Status: Acute (5) Hyperlipidemia Code(s): E78.5 - Hyperlipidemia, unspecified Status: Chronic (6) Diabetes Code(s): E11.9 - Type 2 diabetes mellitus without complications Status: Chronic (7) Sacral wound Code(s): S31.000A - Unspecified open wound of lower back and pelvis without penetration into retroperitoneum, initial encounter Status: Acute (8) Clavicle fracture Code(s): S42.009A - Fracture of unspecified part of unspecified clavicle, initial encounter for closed fracture Status: Acute (9) Nutrition, metabolism, and development symptoms Code(s): R63.8 - Other symptoms and signs concerning food and fluid intake Status: Acute <Dino Day Farideh - 05/18/18 11:13> (1) Catatonia associated with another mental disorder Code(s): F06.1 - Catatonic disorder due to known physiological condition Status: Acute Plan: Per neurology note yesterday recommendation for transfer to [place] or [facility] for further workup and evaluation. Will speak to psych regarding this. 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 Ativan 2mg po q6h scheduled by psychiatry yesterday Coordinating with [facility] to see if will accept pt for ECT Will attempt to discuss plan with daughter again today, call was not returned yesterday. (2) PRES (posterior reversible encephalopathy syndrome) Code(s): I67.83 - Posterior reversible encephalopathy syndrome Status: Acute Plan: MRI findings suggestive of PRES, resolved on repeat imaging on 05/14 BPs labile, will continue anti-HTN Neurology following, advises stat transfer for ECT Avoid ACEi (3) HTN (hypertension) Code(s): I10 - Essential (primary) hypertension Status: Chronic Plan: Due to PRES needs tighter BP control per neurology: goal SBP 110-120 * IV pushes with Hydralazine and labetalol as needed for BP control * Titrating PO meds * Hydralazine 100 mg TID * Coreg 25 mg BID * Isosorbide dinitrate 20 mg TIDAC * Amlodipine 10 mg daily (4) Seizures Code(s): R56.9 - Unspecified convulsions Status: Acute Plan: Now with possible repeat seizure vs catalepsy from catatonia EEG with nonspecific encephalopathy MRI/MRA unremarkable except for PRES, resolved Changed to PO Keppra (5) Hyperlipidemia Code(s): E78.5 - Hyperlipidemia, unspecified Status: Chronic Plan: We will continue on her regular medications. (6) Diabetes Code(s): E11.9 - Type 2 diabetes mellitus without complications Status: Chronic Plan: BG at hospital goal now * Holding metformin for now * Low dose SSI (7) Sacral wound Code(s): S31.000A - Unspecified open wound of lower back and pelvis without penetration into retroperitoneum, initial encounter Status: Acute Plan: Found upon skin examination by nursing staff yesterday -Wound care consulted Unstageable due to not being able to assess the depth of the wound 1.Please cleanse wound with normal saline and pat dry. 2. Apply Santyl ointment richard thickness to wound bed 3. Apply saline moistened 2x2 fluffed gauze just over wound bed avoid placing over intact skin. 4. Cover wound with optifoam gentle border 4x4. 5. Change dressing daily. 6. Please turn patient from L side to R side every 2 hours, limit time spent on back to P.T. and meals. 7. Do not use cotton pads on low airloss bed. 8. Limit layers under patient. (8) Clavicle fracture Code(s): S42.009A - Fracture of unspecified part of unspecified clavicle, initial encounter for closed fracture Status: Acute Plan: RUE neurovascularly intact, no deformity noted * Monitor clinically * WBAT RUE (9) Nutrition, metabolism, and development symptoms Code(s): R63.8 - Other symptoms and signs concerning food and fluid intake Status: Acute Plan: Fluids: no IVF Diet: pureed diabetic diet * May end up needing RD consult again; she has poor motivation to eat due to depression/catatonia GI: Famotidine Docusate serum/senna 1 tablet twice daily for bowel regimen DVT: Heparin BID <Shantel Summers - 05/18/18 08:38> - Attending Attestation The exam, history, and the medical decision-making described in the above note were completed with the assistance of the resident physician. I reviewed and agree with the findings presented. I attest that I had a [id number] encounter with the patient on the same day, and personally performed and documented my assessment and findings in the medical record. Patient more alert today, following commands to the extent that she had been earlier in the week, she drank her orange juice for me. I was told that she declined her breakfast. Still on ativan and seems better today anyway. I have asked RN to make sure that .NET ARCHITECT working with her is actually putting silverware with food up to her mouth to eat because she usually does this successfully but will not take the initiative to put the food up to her mouth on her own. Will change pepcid to PO. [facility] stated they do not need any more evidence to accept, she is just on a waitlist and will likely not be able to be transferred until early next week. <ShayDino Farideh - 05/18/18 11:13> <Shantel Summers G - Last Filed: 05/18/18 08:38> (3) HTN (hypertension) Qualifiers: Hypertension type: other secondary hypertension Qualified Code(s): I15.8 - Other secondary hypertension (5) Hyperlipidemia Qualifiers: Hyperlipidemia type: pure hypercholesterolemia Qualified Code(s): E78.00 - Pure hypercholesterolemia, unspecified; E78.0 - Pure hypercholesterolemia (6) Diabetes Qualifiers: Diabetes mellitus type: type 2 Diabetes mellitus termite renewal inspector insulin use: unspecified termite renewal inspector insulin use status Diabetes mellitus complication status : with circulatory complication Diabetes mellitus complication detail: with peripheral angiopathy without gangrene Qualified Code(s): E11.51 - Type 2 diabetes mellitus with diabetic peripheral angiopathy without gangrene (8) Clavicle fracture Qualifiers: Encounter type: subsequent encounter Fracture type: closed Laterality: right <Dino Day K - Last Filed: 05/18/18 11:13> (3) HTN (hypertension) Qualifiers: Hypertension type: other secondary hypertension Qualified Code(s): I15.8 - Other secondary hypertension (5) Hyperlipidemia Qualifiers: Hyperlipidemia type: pure hypercholesterolemia Qualified Code(s): E78.00 - Pure hypercholesterolemia, unspecified; E78.0 - Pure hypercholesterolemia (6) Diabetes Qualifiers: Diabetes mellitus type: type 2 Diabetes mellitus assisted insulin use: unspecified termite renewal inspector insulin use status Diabetes mellitus complication status : with circulatory complication Diabetes mellitus complication detail: with peripheral angiopathy without gangrene Qualified Code(s): E11.51 - Type 2 diabetes mellitus with diabetic peripheral angiopathy without gangrene (8) Clavicle fracture Qualifiers: Encounter type: subsequent encounter Fracture type: closed Laterality: right <Shantel Summers G - Last Filed: 05/18/18 08:38> (3) HTN (hypertension) Qualifiers: Hypertension type: other secondary hypertension Qualified Code(s): I15.8 - Other secondary hypertension (5) Hyperlipidemia Qualifiers: Hyperlipidemia type: pure hypercholesterolemia Qualified Code(s): E78.00 - Pure hypercholesterolemia, unspecified; E78.0 - Pure hypercholesterolemia (6) Diabetes Qualifiers: Diabetes mellitus type: type 2 Diabetes mellitus assisted insulin use: unspecified assisted insulin use status Diabetes mellitus complication status : with circulatory complication Diabetes mellitus complication detail: with peripheral angiopathy without gangrene Qualified Code(s): E11.51 - Type 2 diabetes mellitus with diabetic peripheral angiopathy without gangrene (8) Clavicle fracture Qualifiers: Encounter type: subsequent encounter Fracture type: closed Laterality: right <Dino Day - Last Filed: 05/18/18 11:13> (3) HTN (hypertension) Qualifiers: Hypertension type: other secondary hypertension Qualified Code(s): I15.8 - Other secondary hypertension (5) Hyperlipidemia Qualifiers: Hyperlipidemia type: pure hypercholesterolemia Qualified Code(s): E78.00 - Pure hypercholesterolemia, unspecified; E78.0 - Pure hypercholesterolemia (6) Diabetes Qualifiers: Diabetes mellitus type: type 2 Diabetes mellitus termite renewal inspector insulin use: unspecified assisted insulin use status Diabetes mellitus complication status : with circulatory complication Diabetes mellitus complication detail: with peripheral angiopathy without gangrene Qualified Code(s): E11.51 - Type 2 diabetes mellitus with diabetic peripheral angiopathy without gangrene (8) Clavicle fracture Qualifiers: Encounter type: subsequent encounter Fracture type: closed Laterality: right
[2018-05-18] MEDS: Artificial Tears Opth Drops 15 ML Bottle EACH EYE SCH ×2 (09:30→16:14)
[2018-05-18] MEDS: Senna/Docusate Sodium 8.6/50 MG Tablet PO SCH ×2 (09:31→20:30)
[2018-05-18] MEDS: hydrALAZINE 25 MG Tablet PO SCH ×3 (09:31→17:52)
[2018-05-18] MEDS: Carvedilol 12.5 MG Tablet PO SCH ×2 (09:31→20:31)
[2018-05-18] MEDS: amLODIPine 10 MG Tablet PO SCH (09:32)
[2018-05-18] MEDS: Heparin - SQ 10,000 UNITS/ML Vial SQ SCH ×2 (09:32→20:31)
[2018-05-18] MEDS: Insulin Detemir Inj 1,000 UNIT/10 ML Vial SQ SCH ×2 (09:33→21:45)
[2018-05-18] MEDS: Collagenase Oint 30 GM Tube TOPICAL SCH (09:43)
[2018-05-18] MEDS: Famotidine PF Inj 20 MG/2 ML Vial IV.PUSH SCH (09:45)
[2018-05-18] MEDS: Famotidine 20 MG Tablet PO SCH (20:30)
[2018-05-18] MEDS: hydrALAZINE 50 MG Tablet PO SCH (21:45)
[2018-05-19] MEDS: Artificial Tears Opth Drops 15 ML Bottle EACH EYE SCH ×3 (00:06→14:10)
[2018-05-19] MEDS: Insulin NovoLOG Aspart Correctional Sugar Inj SQ SCH ×4 (07:38→17:45)
[2018-05-19] MEDS: Oral Hygiene Kit OROPHARYNG SCH ×4 (07:38→16:21)
[2018-05-19] MEDS: hydrALAZINE 50 MG Tablet PO SCH ×3 (09:11→17:44)
[2018-05-19] MEDS: Famotidine 20 MG Tablet PO SCH ×2 (09:12→21:24)
[2018-05-19] MEDS: Heparin - SQ 10,000 UNITS/ML Vial SQ SCH ×2 (09:12→21:25)
[2018-05-19] MEDS: Insulin Detemir Inj 1,000 UNIT/10 ML Vial SQ SCH ×3 (09:13→21:24)
[2018-05-19] MEDS: amLODIPine 10 MG Tablet PO SCH (09:13)
[2018-05-19] MEDS: Senna/Docusate Sodium 8.6/50 MG Tablet PO SCH ×2 (09:13→21:25)
[2018-05-19] MEDS: Carvedilol 12.5 MG Tablet PO SCH ×2 (09:14→21:24)
[2018-05-19] MEDS: Collagenase Oint 30 GM Tube TOPICAL SCH (09:23)
--- NOTE | 2018-05-19 10:04 | P.PNFP ---
Subjective Interval history: Ms Pedroza was seen on rounds morning. She is sleepy but arousable. She is less communicative than previous exams. She does not follow commands. Review of systems limited due to patient's mental status <Savana Boston - 05/19/18 10:04> Results - Labs Result diagrams: 05/17/18 07:51 05/17/18 07:51 <Dino Day 05/19/18 14:49> Abnormal lab results 05/18/18 05/18/18 05/19/18 Range/Units 17:26 23:47 05:46 POC Glucose 184 H 139 H 113 H (68-110) mg/dl 05/19/18 Range/Units 11:32 POC Glucose 145 H (68-110) mg/dl <Dino Day 05/19/18 14:49> Abnormal lab results 05/18/18 05/18/18 05/18/18 Range/Units 11:23 17:26 23:47 POC Glucose 167 H 184 H 139 H (68-110) mg/dl 05/19/18 Range/Units 05:46 POC Glucose 113 H (68-110) mg/dl <Savana Boston - 05/19/18 10:04> Physical Exam Vital signs: Vital Signs 05/18/18 15:15 05/18/18 16:00 05/18/18 16:30 Temperature 97.3 F L Pulse Rate 61 Respiratory Rate 20 18 Blood Pressure 93/44 L 124/57 L Pulse Oximetry 98 05/18/18 20:00 05/18/18 21:47 05/19/18 00:00 Temperature 97.6 F 97.8 F Pulse Rate 56 L 57 L 68 Respiratory Rate 18 18 Blood Pressure 124/58 L 152/65 H 127/59 L Pulse Oximetry 98 98 05/19/18 04:00 05/19/18 04:03 05/19/18 07:35 Temperature 98.1 F 97.4 F L Pulse Rate 53 L 54 L 53 L Respiratory Rate 18 18 Blood Pressure 125/60 165/69 H Pulse Oximetry 97 100 05/19/18 08:10 05/19/18 08:17 05/19/18 10:50 Temperature 97.5 F L Pulse Rate 51 L 60 Respiratory Rate 18 Blood Pressure 106/50 L Pulse Oximetry 97 98 05/19/18 12:02 05/19/18 12:20 Temperature Pulse Rate 55 L Respiratory Rate 18 Blood Pressure Pulse Oximetry Intake & Output 05/18/18 05/19/18 05/19/18 18:59 06:59 18:59 Intake Total 480 / 480 Balance 480 / 480 Weight 57.3 kg Intake: Oral 480 / 480 Other: # Voids 1 3 1 # Incontinent Voids 1 Date of Last Bowel Movement 05/18/18 05/19/18 05/19/18 # Bowel Movements 1 1 1 # Incontinent Bowel Movements 1 <Dino Day K - 05/19/18 14:49> Vital Signs 05/18/18 11:35 05/18/18 11:39 05/18/18 11:56 Temperature 97.6 F Pulse Rate 64 Respiratory Rate 20 18 Blood Pressure 120/58 L Pulse Oximetry 98 97 05/18/18 12:11 05/18/18 15:15 05/18/18 16:00 Temperature 97.3 F L Pulse Rate 66 61 Respiratory Rate 20 18 Blood Pressure 93/44 L Pulse Oximetry 98 05/18/18 16:30 05/18/18 20:00 05/18/18 21:47 Temperature 97.6 F Pulse Rate 56 L 57 L Respiratory Rate 18 Blood Pressure 124/57 L 124/58 L 152/65 H Pulse Oximetry 98 05/19/18 00:00 05/19/18 04:00 05/19/18 04:03 Temperature 97.8 F 98.1 F Pulse Rate 68 53 L 54 L Respiratory Rate 18 18 Blood Pressure 127/59 L 125/60 Pulse Oximetry 98 97 05/19/18 07:35 05/19/18 08:17 Temperature 97.4 F L Pulse Rate 53 L Respiratory Rate 18 Blood Pressure 165/69 H Pulse Oximetry 100 97 Intake & Output 05/18/18 05/19/18 05/19/18 18:59 06:59 18:59 Intake Total 480 / 480 Balance 480 / 480 Weight 57.3 kg Intake: Oral 480 / 480 Other: # Voids 1 3 Date of Last Bowel Movement 05/18/18 05/19/18 # Bowel Movements 1 1 <Savana Boston - 05/19/18 10:04> Narrative: GENERAL: lying in bed, NAD SKIN: Unable to assess sacral wound as patient is not cooperative. CARDIOVASCULAR: Regular rate and rhythm. RESPIRATORY: No accessory muscle use. Soft wheezes. Breath sounds equal bilaterally. NEUROLOGICAL: Easily awakened. Opens her eyes but does not follow commands. Unable to do full neuro assessment PSYCHIATRIC: Flat affect. <Savana Boston 05/19/18 10:04> - Urinary Catheter Management Straight Cath placed during this visit: no <Dino Day 05/19/18 14:49> no <Savana Boston 05/19/18 10:04> Assessment and Plan - Assessment (1) Catatonia associated with another mental disorder Code(s): F06.1 - Catatonic disorder due to known physiological condition Status: Acute (2) PRES (posterior reversible encephalopathy syndrome) Code(s): I67.83 - Posterior reversible encephalopathy syndrome Status: Acute (3) HTN (hypertension) Code(s): I10 - Essential (primary) hypertension Status: Chronic (4) Seizures Code(s): R56.9 - Unspecified convulsions Status: Acute (5) Hyperlipidemia Code(s): E78.5 - Hyperlipidemia, unspecified Status: Chronic (6) Diabetes Code(s): E11.9 - Type 2 diabetes mellitus without complications Status: Chronic (7) Sacral wound Code(s): S31.000A - Unspecified open wound of lower back and pelvis without penetration into retroperitoneum, initial encounter Status: Acute (8) Clavicle fracture Code(s): S42.009A - Fracture of unspecified part of unspecified clavicle, initial encounter for closed fracture Status: Acute (9) Nutrition, metabolism, and development symptoms Code(s): R63.8 - Other symptoms and signs concerning food and fluid intake Status: Acute <Dino Day 05/19/18 14:49> (1) Catatonia associated with another mental disorder Code(s): F06.1 - Catatonic disorder due to known physiological condition Status: Acute Plan: Neurology recommending transfer to [facility] for further work 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 Ativan 2mg po q6h scheduled by psychiatry Coordinating with [facility] to see if will accept pt for ECT (2) PRES (posterior reversible encephalopathy syndrome) Code(s): I67.83 - Posterior reversible encephalopathy syndrome Status: Acute Plan: MRI findings suggestive of PRES, resolved on repeat imaging on 05/14 BPs under better control, will continue antihypertensives Neurology following, advises stat transfer for ECT Avoid ACEi (3) HTN (hypertension) Code(s): I10 - Essential (primary) hypertension Status: Chronic Plan: Due to PRES needs tighter BP control per neurology: goal SBP 110-120 * IV pushes with Hydralazine and labetalol as needed for BP control * Titrating PO meds * Hydralazine 50 mg TID * Coreg 25 mg BID * Isosorbide dinitrate 20 mg TIDAC * Amlodipine 10 mg daily (4) Seizures Code(s): R56.9 - Unspecified convulsions Status: Acute Plan: Now with possible repeat seizure vs catalepsy from catatonia EEG with nonspecific encephalopathy MRI/MRA unremarkable except for PRES, resolved Changed to PO Keppra (5) Hyperlipidemia Code(s): E78.5 - Hyperlipidemia, unspecified Status: Chronic Plan: We will continue on her regular medications. (6) Diabetes Code(s): E11.9 - Type 2 diabetes mellitus without complications Status: Chronic Plan: BG at hospital goal now * Holding metformin for now * Low dose SSI (7) Sacral wound Code(s): S31.000A - Unspecified open wound of lower back and pelvis without penetration into retroperitoneum, initial encounter Status: Acute Plan: Found upon skin examination by nursing staff, nursing staff to continue to monitor -Wound care consulted Unstageable due to not being able to assess the depth of the wound 1.Please cleanse wound with normal saline and pat dry. 2. Apply Santyl ointment richard thickness to wound bed 3. Apply saline moistened 2x2 fluffed gauze just over wound bed avoid placing over intact skin. 4. Cover wound with optifoam gentle border 4x4. 5. Change dressing daily. 6. Please turn patient from L side to R side every 2 hours, limit time spent on back to P.T. and meals. 7. Do not use cotton pads on low airloss bed. 8. Limit layers under patient. (8) Clavicle fracture Code(s): S42.009A - Fracture of unspecified part of unspecified clavicle, initial encounter for closed fracture Status: Acute Plan: RUE neurovascularly intact, no deformity noted * Monitor clinically * WBAT RUE (9) Nutrition, metabolism, and development symptoms Code(s): R63.8 - Other symptoms and signs concerning food and fluid intake Status: Acute Plan: Fluids: no IVF Diet: pureed diabetic diet * May end up needing RD consult again; she has poor motivation to eat due to depression/catatonia GI: Famotidine Docusate serum/senna 1 tablet twice daily for bowel regimen DVT: Heparin BID <Savana Boston - 05/19/18 09:59> - Assessment and Plan Discussed Condition With: Dr Day <Savana Boston - 05/19/18 10:04> - Attending Attestation The exam, history, and the medical decision-making described in the above note were completed with the assistance of the resident physician. I reviewed and agree with the findings presented. I attest that I had a [id number] encounter with the patient on the same day, and personally performed and documented my assessment and findings in the medical record. Following commands and eating glucerna today on my exam. trying to control BP tightly but labile. Need to scale back on hydralazine. will continue to monitor and titrate down as needed. hope to go to [facility] for ECT soon <Dino Day - 05/19/18 14:49> <Savana Boston - Last Filed: 05/19/18 09:59> (3) HTN (hypertension) Qualifiers: Hypertension type: other secondary hypertension Qualified Code(s): I15.8 - Other secondary hypertension (5) Hyperlipidemia Qualifiers: Hyperlipidemia type: pure hypercholesterolemia Qualified Code(s): E78.00 - Pure hypercholesterolemia, unspecified; E78.0 - Pure hypercholesterolemia (6) Diabetes Qualifiers: Diabetes mellitus type: type 2 Diabetes mellitus supply service worker insulin use: unspecified supply service worker insulin use status Diabetes mellitus complication status : with circulatory complication Diabetes mellitus complication detail: with peripheral angiopathy without gangrene Qualified Code(s): E11.51 - Type 2 diabetes mellitus with diabetic peripheral angiopathy without gangrene (8) Clavicle fracture Qualifiers: Encounter type: subsequent encounter Fracture type: closed Laterality: right <ShayDino K - Last Filed: 05/19/18 14:49> (3) HTN (hypertension) Qualifiers: Hypertension type: other secondary hypertension Qualified Code(s): I15.8 - Other secondary hypertension (5) Hyperlipidemia Qualifiers: Hyperlipidemia type: pure hypercholesterolemia Qualified Code(s): E78.00 - Pure hypercholesterolemia, unspecified; E78.0 - Pure hypercholesterolemia (6) Diabetes Qualifiers: Diabetes mellitus type: type 2 Diabetes mellitus correction insulin use: unspecified supply service worker insulin use status Diabetes mellitus complication status : with circulatory complication Diabetes mellitus complication detail: with peripheral angiopathy without gangrene Qualified Code(s): E11.51 - Type 2 diabetes mellitus with diabetic peripheral angiopathy without gangrene (8) Clavicle fracture Qualifiers: Encounter type: subsequent encounter Fracture type: closed Laterality: right <Savana Boston E - Last Filed: 05/19/18 09:59> (3) HTN (hypertension) Qualifiers: Hypertension type: other secondary hypertension Qualified Code(s): I15.8 - Other secondary hypertension (5) Hyperlipidemia Qualifiers: Hyperlipidemia type: pure hypercholesterolemia Qualified Code(s): E78.00 - Pure hypercholesterolemia, unspecified; E78.0 - Pure hypercholesterolemia (6) Diabetes Qualifiers: Diabetes mellitus type: type 2 Diabetes mellitus supply service worker insulin use: unspecified correction insulin use status Diabetes mellitus complication status : with circulatory complication Diabetes mellitus complication detail: with peripheral angiopathy without gangrene Qualified Code(s): E11.51 - Type 2 diabetes mellitus with diabetic peripheral angiopathy without gangrene (8) Clavicle fracture Qualifiers: Encounter type: subsequent encounter Fracture type: closed Laterality: right <Dino Day Farideh - Last Filed: 05/19/18 14:49> (3) HTN (hypertension) Qualifiers: Hypertension type: other secondary hypertension Qualified Code(s): I15.8 - Other secondary hypertension (5) Hyperlipidemia Qualifiers: Hyperlipidemia type: pure hypercholesterolemia Qualified Code(s): E78.00 - Pure hypercholesterolemia, unspecified; E78.0 - Pure hypercholesterolemia (6) Diabetes Qualifiers: Diabetes mellitus type: type 2 Diabetes mellitus correction insulin use: unspecified correction insulin use status Diabetes mellitus complication status : with circulatory complication Diabetes mellitus complication detail: with peripheral angiopathy without gangrene Qualified Code(s): E11.51 - Type 2 diabetes mellitus with diabetic peripheral angiopathy without gangrene (8) Clavicle fracture Qualifiers: Encounter type: subsequent encounter Fracture type: closed Laterality: right
[2018-05-20] MEDS: Artificial Tears Opth Drops 15 ML Bottle EACH EYE SCH ×4 (00:37→23:43)
[2018-05-20] MEDS: Insulin NovoLOG Aspart Correctional Sugar Inj SQ SCH ×5 (00:37→23:46)
[2018-05-20] MEDS: Oral Hygiene Kit OROPHARYNG SCH ×5 (00:37→23:46)
--- NOTE | 2018-05-20 07:28 | P.DSPSY ---
Psychiatry Discharge Summary Inpatient Psychiatric care?: Yes Advance Directives: No Mental Health Advance Directive: No Health Care Proxy: No - Admission Admission Date: April 30, 2018 12:01 Brief History: April 30, 2018 (late entry May 20, 2018) Patient was admitted to the med psych service with catatonia along with hypertension. The catatonia showed little improvement and the consideration of ECT was awaiting medical management as that would allow the patient to be transferred to a hospital where she might receive ECT. Tobacco Use In Past 30 Days: No How Often Do You Have a Drink Containing Alcohol: Unable to Obtain Hospital Course: April 30, 2018 (late entry May 20, 2018) Course in the hospital patient has had a steadily downhill course with only a few periods of minimal suggestion of improvement. Patient's blood pressure has been unmanageable on psychiatric unit with oral medications and requires transfer to a monitored bed on the medical service. - Discharge Discharge Date: 04/30/18 Discharge Disposition: ICU - Discharge Time > 30 minutes Mental Status Examination Appearance: Appropriate Consciousness: Alert Orientation: Person, Place Motor Activity: Other (Patient is bedridden and currently intubated) Speech: Hesitant, Slow, Other (Whispered) Language: Adequate (Strained) Fund of Knowledge: Adequate (Unknown) Attention and Concentration: Adequate (At times) Memory: Impaired Mood: Anxious, Other (Restricted) Affect: Other (Decreased range and intensity) Thought Process & Associations: Intact Thought Content: Appropriate Hallucination Type: None Delusion Type: None Suicidal Ideation: No Suicidal Plan: No Suicidal Intention: No Homicidal Ideation: No Homicidal Plan: No Homicidal Intention: No Insight: Fair Judgment: Impulsive Discharge/Advance Care Plan - Results Vital Signs: Last Vital Signs Temp 98.0 F 05/20/18 04:00 Pulse 63 05/20/18 04:00 Resp 16 05/20/18 04:00 BP 158/69 H 05/20/18 04:00 Pulse Ox 95 05/20/18 04:00 Lab Results: Abnormal Lab Results 05/19/18 05/19/18 05/19/18 11:32 17:09 21:18 POC Glucose 145 H 126 H 265 H 05/20/18 05/20/18 00:32 05:52 POC Glucose 193 H 89 Laboratory Results TSH 0.524 uIU/mL (0.358-3.740) 05/04/18 05:40 Summary of Procedures: None Imaging: ITS Impressions Carotid Doppler Study 05/01/18 00:00 CONCLUSION: 1. Elevation of the peak systolic velocity of the left internal carotid artery suggesting 50-69% stenosis although the ICA/CCA ratio on the left suggests less than 50% stenosis. CTA of the carotids would be helpful to resolve these discordant findings. There is also elevation of the peak systolic velocity of the left external carotid artery in the 50-69% stenosis range. 2. Less than 50% stenosis involving the right internal carotid artery. 3. Moderate atherosclerotic plaque formation within the carotid bulbs and proximal internal carotid arteries. Lumbar Puncture Fluoroscopy 05/02/18 00:00 CONCLUSION: 1. Uncomplicated fluoroscopically guided lumbar puncture. Abdomen/Pelvis CT 05/03/18 00:00 CONCLUSION: 1. Questionable mass within the body of the pancreas measuring 1.7 x 2.6 cm. MRI of the abdomen with contrast may be helpful for further characterization of this questionable mass if clinically indicated. 2. Gallbladder wall is mildly thickened. If there is clinical concern for acute cholecystitis, a hepatobiliary scan may be helpful to confirm cystic duct obstruction. 3. Liver is enlarged and appears somewhat nodular in contour raising the possibility of cirrhosis. No focal mass is noted. 4. Small bilateral pleural effusions with adjacent alveolar consolidations are noted. 5. Tiny pericardial effusion. 6. Minimal ascites. 7. 11 mm calcified fibroid within the uterus. 8. Degenerative changes and scoliosis of the thoracolumbar spine. Chest CT 05/03/18 00:00 CONCLUSION: 1. Small bilateral pleural effusions. 2. Posterior bibasilar alveolar consolidations consistent with compressive atelectasis and/or pneumonia. Clinical correlation is recommended. 3. Tiny pericardial effusion. 4. Cardiomegaly and coronary artery calcifications. 5. No pulmonary nodule, mass or lymphadenopathy. 6. Scoliosis and degenerative changes involving the thoracic spine. Abdomen MRI 05/04/18 00:00 CONCLUSION: 1. No pancreatic mass identified on MRI. 2. Bilateral pleural effusions. Moderate anasarca. Mild ascites. Head MRI 05/14/18 00:00 CONCLUSION: 1. No significant change in the extensive periventricular and subcortical white matter small vessel ischemic changes bilaterally. 2. Diffuse cerebral atrophy is stable. 3. No acute infarct, acute hemorrhage or midline shift. 4. The previously noted edema involving the bilateral parietal, temporal and occipital lobes has resolved. 5. Scattered old lacunar infarcts are stable. Chest X-Ray 05/15/18 00:00 CONCLUSION: Compensated cardiomegaly with minimal parenchymal changes left base that could be an early inflammatory process Pending Results: None - Medications Number of antipsychotic medications at discharge: 0 - Discharge Care Plan Goals to Promote Your Health: * To prevent worsening of your condition and complications * To maintain your health at the optimal level Directions to Meet Your Goals: Take your medications as prescribed Follow your dietary instruction Follow activity as directed Keep your appointments as scheduled Take your immunizations and boosters as scheduled If your symptoms worsen call your PCP, if no PCP go to Urgent Care Center or Emergency Room For 24/ questions related to your inpatient stay or results of tests pending at discharge, please contact Dr. Jayesh Acosta MD at Smoking is Dangerous to Your Health. Avoid second hand smoking
--- NOTE | 2018-05-20 07:31 | P.PNNEU ---
Subjective Active Medications: Active Medications Acetaminophen (Tylenol Liq) 650 mg NG/OG Q6H PRN PRN Reason: PAIN 1-10 AND/OR FEVER >101F Al Hydroxide/Mg Hydroxide (Milk Of Magnesia Liq) 30 ml PO Q12H PRN PRN Reason: Mild Constipation Albuterol (Albuterol Neb (Prn)) 2.5 mg NEB Q2HR NEB PRN PRN Reason: DYSPNEA Amlodipine Besylate (Norvasc) 10 mg PO DAILY [facility] Last Admin: 05/19/18 09:13 Dose: Not Given Artificial Tears (Tears Naturale Opth Drops) 1 drop EACH EYE Q8H [facility] Last Admin: 05/20/18 07:05 Dose: Not Given Aspirin (Aspirin Chew) 81 mg NG/OG DAILY [facility] Last Admin: 05/19/18 09:12 Dose: 81 mg Atorvastatin Calcium (Lipitor) 40 mg NG/OG HS [facility] Last Admin: 05/19/18 21:24 Dose: 40 mg Bisacodyl (Dulcolax Supp) 10 mg RECTAL DAILY PRN PRN Reason: SEVERE CONSITIPATION Carvedilol (Coreg) 25 mg PO BID [facility] Last Admin: 05/19/18 21:24 Dose: 25 mg Clonidine HCl (Catapres) 0.1 mg PO Q6H PRN PRN Reason: SEE LABEL COMMENTS Collagenase (Santyl Oint) 1 applicatio TOPICAL DAILY [facility] Last Admin: 05/19/18 09:23 Dose: 1 applicatio Dextrose (D50w Vial) 50 ml IV.PUSH UNSCH PRN PRN Reason: PER HYPOGLYCEMIA PROTOCOL Famotidine (Pepcid) 20 mg PO BID [facility] Last Admin: 05/19/18 21:24 Dose: 20 mg Gabapentin (Neurontin) 600 mg PO BID [facility] Last Admin: 05/01/18 08:56 Dose: Not Given Glucagon (Glucagon Inj) 1 mg OTHER PRN PRN PRN Reason: for Hypoglycemia Protocol Heparin Sodium (Porcine) (Heparin Inj) 5,000 units SQ Q12HR [facility] Last Admin: 05/19/18 21:25 Dose: 5,000 units Hydralazine HCl (Apresoline Inj) 10 mg IV.PUSH Q1H PRN PRN Reason: sbp > 140 Last Admin: 05/08/18 22:04 Dose: 10 mg Hydralazine HCl (Apresoline) 50 mg PO TID [facility] Last Admin: 05/19/18 17:44 Dose: 50 mg Fentanyl (Fentanyl 10 Mcg/Ml Premix Drip) 2,500 mcg in 250 mls @ 5 mls/hr IV.SIG TITRATE PRN; Protocol PRN Reason: Per Protocol Insulin Aspart (Novolog Insulin Correctional Sugar Inj) 0 unit SQ Q6HR [facility]; Protocol Last Admin: 05/20/18 06:12 Dose: Not Given Insulin Detemir (Levemir Inj) 5 unit SQ BID [facility] Last Admin: 05/19/18 21:24 Dose: 5 unit Isosorbide Dinitrate (Isordil) 20 mg PO TIDAC [facility] Last Admin: 05/19/18 17:45 Dose: 20 mg Labetalol HCl (Trandate Inj) 10 mg IV.PUSH Q1H PRN PRN Reason: Sbp>140, Dbp>90, Hr>65 Last Admin: 05/10/18 23:29 Dose: 10 mg Lactulose (Lactulose Liq) 30 ml PO DAILY PRN PRN Reason: SEVERE CONSITIPATION Last Admin: 05/18/18 12:54 Dose: 30 ml Lorazepam (Ativan) 2 mg PO Q6H [facility] Last Admin: 05/20/18 04:15 Dose: Not Given Memantine (Namenda) 5 mg PO BID [facility] Last Admin: 05/19/18 21:24 Dose: 5 mg Miscellaneous Medication () 1 each OROPHARYNG 0000,0400,1200,1600 [facility] Last Admin: 05/20/18 04:15 Dose: Not Given Ondansetron HCl (Zofran Inj) 4 mg IV.PUSH Q6H PRN PRN Reason: NAUSEA Senna/Docusate Sodium (Aleah-Colace) 1 tab PO BID [facility] Last Admin: 05/19/18 21:25 Dose: Not Given Sennosides (Senokot) 17.2 mg PO Q12H PRN PRN Reason: Moderate Constipation Sodium Chloride (Ns Flush) 2 ml IV.FLUSH BID [facility] Last Admin: 05/19/18 21:25 Dose: 2 ml Sodium Chloride (Ns Flush) 2 ml IV.FLUSH UNSCH PRN PRN Reason: FLUSH AFTER USING IV ACCESS Last Admin: 05/06/18 08:32 Dose: 2 ml Thiamine HCl (Thiamine Inj) 100 mg IM DAILY [facility] Last Admin: 05/19/18 09:12 Dose: 100 mg Allergies/Adverse Reactions: Allergies Allergy/AdvReac Type Severity Reaction Status Date / Time JACE Inhibitors Allergy Swelling Verified 05/06/18 12:26 of Lip/Tongue/Throat iodine Allergy Swelling Verified 04/19/18 15:50 Physical Exam Vital signs: Vital Signs 05/19/18 07:35 05/19/18 08:10 05/19/18 08:17 Temperature 97.4 F L Pulse Rate 53 L 51 L Respiratory Rate 18 Blood Pressure 165/69 H Pulse Oximetry 100 97 05/19/18 10:50 05/19/18 12:02 05/19/18 12:20 Temperature 97.5 F L Pulse Rate 60 55 L Respiratory Rate 18 18 Blood Pressure 106/50 L Pulse Oximetry 98 05/19/18 15:00 05/19/18 15:49 05/19/18 16:10 Temperature 97.6 F Pulse Rate 61 53 L Respiratory Rate 18 18 Blood Pressure 108/56 L Pulse Oximetry 97 05/19/18 17:22 05/19/18 20:00 05/20/18 00:00 Temperature 97.7 F 97.9 F Pulse Rate 68 70 Respiratory Rate 18 18 Blood Pressure 133/60 145/63 H 155/67 H Pulse Oximetry 95 95 05/20/18 04:00 Temperature 98.0 F Pulse Rate 63 Respiratory Rate 16 Blood Pressure 158/69 H Pulse Oximetry 95 Intake & Output 05/19/18 05/20/18 05/20/18 18:59 06:59 18:59 Other: # Voids 1 # Incontinent Voids 1 4 Date of Last Bowel Movement 05/19/18 # Bowel Movements 1 # Incontinent Bowel Movements 1 Narrative: no change nonverbal looks at me - Urinary Catheter Management Straight Cath placed during this visit: no Objective Laboratory Results - last 24 hr 05/19/18 05/19/18 05/19/18 11:32 17:09 21:18 POC Glucose 145 H 126 H 265 H 05/20/18 05/20/18 00:32 05:52 POC Glucose 193 H 89 Review/Management - Diagnosis (1) Hypertensive encephalopathy Code(s): I67.4 - Hypertensive encephalopathy Status: Acute Current Visit: Yes (2) HTN (hypertension) Code(s): I10 - Essential (primary) hypertension Status: Chronic Current Visit: No (3) Dementia Code(s): F03.90 - Unspecified dementia without behavioral disturbance Status: Acute Current Visit: No (4) Seizures Code(s): R56.9 - Unspecified convulsions Status: Acute Current Visit: No (5) Anxiety Code(s): F41.9 - Anxiety disorder, unspecified Status: Acute Current Visit: No - Review/Management Plan: 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 may have element of PRES as noted in prior notes recs check csf studies-pending bp control Thiamine supplementation follow exam Dr. Mehta to follow in a.m. 05/01/18 mri loops like PRES mra and mrv and labs all neg keep bp 110-120/ LP today eeg neg on keppra --------- 05/02/18 looks a little better mri repeat yest no change pres bp better keep 110-120/ await LP needs done today!! on keppra 05/03/18 mri no change eeg neg LP neg bp better check ct abd and pelvis and chest paraneo 05/06/18 looks so much better neurowise check paraneoplastic labs PRES clinically better thiamine pend will recheck mri in few days keep bp down 110-120/ ct chest and abd ok 05/07/18 sedated i andrei med team pt looked to have early changes of pres 2 days after admit and bp initially 186/ in er the Question of which came first the pres or the catatonia ? i think overall the pres likley caused the ms changes as bp came down she is so much better yest i anderi nurse hold sedative should awaken she was on seroquel and lexapro i believe b4 admit and nms considered with drastic improvement clinically would not rec ect need to inc po meds for bp control i see no major hypotension documented when not on iv meds 05/08/18 will need to keep off sedatives i andrei nurse keep bp 110-120/ possible extubation today as above i am not convinced she had catatonia b4 pres started as bp taken in er day b4 ms changes in 180/ range regardless with ms improvement with rx of bp i am not recommending ect at this time 05/09/17 130-170/ we need to keep bp 110-120 at all times more awake off sedatives working on extubation 05/10/18 would like bp 110-120/ recheck mri looking well overall await extubation when can will fu sunday call neuro application designer if any ? 05/13/18 better than b4 intubation but stillslow to respond mri is better and looks like small old smattering of infarcts left high posterior cortex pres improved keep bp down will check eeg if that looks ok and not improving ms garcia daily consider ect us echo neg check holter old cva 05/14/18 not doing much today as far as verbally abg nl eeg slow will recheck mri and if pres continues abated ok for ect check spep daughter states was nl mentally 2 day prior to admission when took narcotics seemed to start ms change holter pend daughter knows of old left cva yrs ago 05/15/18 mri pres resolved spep pend holter neg old cva no better my thoughts would be to see if [facility] or [facility] will take her for consideration of ect since she is a complex and not straight forward case for second opinion 05/16/18 if anything a little worse will try 1 gm solumedrol rec transfer to [facility] or [place] [facility] for ect psych started benzo ------- 05/17/18 not any better my thoughts are she should be transfered for ect stat as morbidity mortality rate high w/o it 05/20/18 needs transfer to [place] for ect off keppra ms not any better needs bp better 110-120/ with pres (2) HTN (hypertension) Qualifiers: Hypertension type: other secondary hypertension Qualified Code(s): I15.8 - Other secondary hypertension
[2018-05-20] MEDS: Carvedilol 12.5 MG Tablet PO SCH ×2 (08:55→22:50)
[2018-05-20] MEDS: hydrALAZINE 50 MG Tablet PO SCH (08:55)
[2018-05-20] MEDS: Famotidine 20 MG Tablet PO SCH ×2 (08:55→22:50)
[2018-05-20] MEDS: amLODIPine 10 MG Tablet PO SCH (08:55)
[2018-05-20] MEDS: Heparin - SQ 10,000 UNITS/ML Vial SQ SCH ×2 (08:55→22:50)
[2018-05-20] MEDS: Senna/Docusate Sodium 8.6/50 MG Tablet PO SCH ×2 (08:56→22:50)
[2018-05-20] MEDS: Insulin Detemir Inj 1,000 UNIT/10 ML Vial SQ SCH ×2 (08:56→22:50)
[2018-05-20] MEDS: Collagenase Oint 30 GM Tube TOPICAL SCH (08:57)
--- NOTE | 2018-05-20 09:46 | P.PNFP ---
Addendum entered and electronically signed by Shantel Miner MD, R2 05/20/18 11:29: Spoke to Mandy Pedroza, pt's daughter, she is on board with the transfer to [facility]. Original Note: Subjective Interval history: Patient seen and examined this morning. Psychiatry was at bedside. Says no to any pain. When asked if she was hungry she states "a little bit." When asked if she wants to get better she nodded yes. With discussing of the treatment plan of ECT, what it is, she nodded yes that she wanted it. <Shantel Summers - 05/20/18 10:39> Results - Labs Result diagrams: 05/20/18 11:28 05/20/18 11:28 <Dino Day - 05/20/18 14:34> Abnormal lab results 05/19/18 05/19/18 05/20/18 Range/Units 17:09 21:18 00:32 RBC (4.00-5.30) mil/mm3 Hgb (11.6-15.3) gm/dL Hct (35.0-46.0) % BUN (7-18) mg/dL Estimated GFR (>89) mL/min POC Glucose 126 H 265 H 193 H (68-110) mg/dl Random Glucose (74-106) mg/dL Calcium (8.5-10.1) mg/dL 05/20/18 05/20/18 05/20/18 Range/Units 11:28 11:28 12:34 RBC 3.20 L (4.00-5.30) mil/mm3 Hgb 10.3 L (11.6-15.3) gm/dL Hct 30.2 L (35.0-46.0) % BUN 20 H (7-18) mg/dL Estimated GFR 88 L (>89) mL/min POC Glucose 168 H (68-110) mg/dl Random Glucose 178 H (74-106) mg/dL Calcium 8.2 L (8.5-10.1) mg/dL Short CBC 05/20/18 Range/Units 11:28 WBC 7.8 (4.0-11.0) th/mm3 Hgb 10.3 L (11.6-15.3) gm/dL Hct 30.2 L (35.0-46.0) % Plt Count 172 (150-450) th/mm3 BMP 05/20/18 11:28 Sodium 143 Potassium 3.8 Chloride 106 Carbon Dioxide 29.4 BUN 20 H Creatinine 0.67 Calcium 8.2 L <Dino Day - 05/20/18 14:34> Abnormal lab results 05/19/18 05/19/18 05/19/18 Range/Units 11:32 17:09 21:18 POC Glucose 145 H 126 H 265 H (68-110) mg/dl 05/20/18 Range/Units 00:32 POC Glucose 193 H (68-110) mg/dl <Shantel Summers G - 05/20/18 09:45> Physical Exam Vital signs: Vital Signs 05/19/18 15:00 05/19/18 15:49 05/19/18 16:10 Temperature 97.6 F Pulse Rate 61 53 L Respiratory Rate 18 18 Blood Pressure 108/56 L Pulse Oximetry 97 05/19/18 17:22 05/19/18 20:00 05/20/18 00:00 Temperature 97.7 F 97.9 F Pulse Rate 68 70 Respiratory Rate 18 18 Blood Pressure 133/60 145/63 H 155/67 H Pulse Oximetry 95 95 05/20/18 04:00 05/20/18 06:50 05/20/18 08:00 Temperature 98.0 F 97.6 F Pulse Rate 63 66 55 L Respiratory Rate 16 18 Blood Pressure 158/69 H 178/72 H Pulse Oximetry 95 100 100 05/20/18 10:45 Temperature 97.9 F Pulse Rate 60 Respiratory Rate 18 Blood Pressure 97/51 L Pulse Oximetry 96 Intake & Output 05/19/18 05/20/18 05/20/18 18:59 06:59 18:59 Other: # Voids 1 # Incontinent Voids 1 4 2 Date of Last Bowel Movement 05/19/18 05/20/18 # Bowel Movements 1 # Incontinent Bowel Movements 1 <Dino Day - 05/20/18 14:34> Vital Signs 05/19/18 10:50 05/19/18 12:02 05/19/18 12:20 Temperature 97.5 F L Pulse Rate 60 55 L Respiratory Rate 18 18 Blood Pressure 106/50 L Pulse Oximetry 98 05/19/18 15:00 05/19/18 15:49 05/19/18 16:10 Temperature 97.6 F Pulse Rate 61 53 L Respiratory Rate 18 18 Blood Pressure 108/56 L Pulse Oximetry 97 05/19/18 17:22 05/19/18 20:00 05/20/18 00:00 Temperature 97.7 F 97.9 F Pulse Rate 68 70 Respiratory Rate 18 18 Blood Pressure 133/60 145/63 H 155/67 H Pulse Oximetry 95 95 05/20/18 04:00 05/20/18 06:50 Temperature 98.0 F 97.6 F Pulse Rate 63 66 Respiratory Rate 16 18 Blood Pressure 158/69 H 178/72 H Pulse Oximetry 95 100 Intake & Output 05/19/18 05/20/18 05/20/18 18:59 06:59 18:59 Other: # Voids 1 # Incontinent Voids 1 4 2 Date of Last Bowel Movement 05/19/18 # Bowel Movements 1 # Incontinent Bowel Movements 1 <Keyshawn Shantel Miner - 05/20/18 09:45> Narrative: GENERAL: sitting up in bed eating, NAD SKIN: Sacral area: ~5.5cmx2.5cm, unable to access depth due to sloughing of yellowish tissue, area surrounded by erythema. Has erythematous macular rash with satellite lesions in groin and intergluteal cleft. CARDIOVASCULAR: Regular rate and rhythm. RESPIRATORY: No accessory muscle use. Soft wheezes. Breath sounds equal bilaterally. NEUROLOGICAL: Awake and alert. does not answer orientation questions. But answers yes, no, and short phrases. Has spontaneous movements. Smiles and laughs. PSYCHIATRIC: Flat affect, but more expressive today. <Keyshawn Shantel Miner - 05/20/18 10:39> - Urinary Catheter Management Straight Cath placed during this visit: no <Dino Day - 05/20/18 14:34> no <Keyshawn Shantel Miner - 05/20/18 10:39> Assessment and Plan - Assessment (1) Catatonia associated with another mental disorder Code(s): F06.1 - Catatonic disorder due to known physiological condition Status: Acute (2) PRES (posterior reversible encephalopathy syndrome) Code(s): I67.83 - Posterior reversible encephalopathy syndrome Status: Acute (3) HTN (hypertension) Code(s): I10 - Essential (primary) hypertension Status: Chronic (4) Seizures Code(s): R56.9 - Unspecified convulsions Status: Acute (5) Hyperlipidemia Code(s): E78.5 - Hyperlipidemia, unspecified Status: Chronic (6) Diabetes Code(s): E11.9 - Type 2 diabetes mellitus without complications Status: Chronic (7) Sacral wound Code(s): S31.000A - Unspecified open wound of lower back and pelvis without penetration into retroperitoneum, initial encounter Status: Acute (8) Fungal skin infection Code(s): B36.9 - Superficial mycosis, unspecified Status: Acute (9) Clavicle fracture Code(s): S42.009A - Fracture of unspecified part of unspecified clavicle, initial encounter for closed fracture Status: Acute (10) Nutrition, metabolism, and development symptoms Code(s): R63.8 - Other symptoms and signs concerning food and fluid intake Status: Acute <Dino Day - 05/20/18 14:34> (1) Catatonia associated with another mental disorder Code(s): F06.1 - Catatonic disorder due to known physiological condition Status: Acute Plan: Neurology recommending transfer to [facility] for further work May be more severe melancholic depression per psychiatry PRESS only organic finding at this point Neurology and psychiatry following. Ativan 2mg po q6h, Namenda 5mg po BID scheduled by psychiatry Has been accepted at [facility], daughter has not answered nor answered calls/messages -talked to case management about appointing decision maker by Ethics committee since daughter is unreachable (2) PRES (posterior reversible encephalopathy syndrome) Code(s): I67.83 - Posterior reversible encephalopathy syndrome Status: Acute Plan: MRI findings suggestive of PRES, resolved on repeat imaging on 05/14 BPs under better control, will continue antihypertensives Neurology following, advises stat transfer for ECT Avoid ACEi (3) HTN (hypertension) Code(s): I10 - Essential (primary) hypertension Status: Chronic Plan: Due to PRES needs tighter BP control per neurology: goal SBP 110-120 * IV pushes with Hydralazine and labetalol as needed for BP control * Titrating PO meds * Hydralazine 75 mg TID * Coreg 25 mg BID * Isosorbide dinitrate 20 mg TIDAC * Amlodipine 10 mg daily (4) Seizures Code(s): R56.9 - Unspecified convulsions Status: Acute Plan: Now with possible repeat seizure vs catalepsy from catatonia EEG with nonspecific encephalopathy MRI/MRA unremarkable except for PRES, resolved Changed to PO Keppra (5) Hyperlipidemia Code(s): E78.5 - Hyperlipidemia, unspecified Status: Chronic Plan: We will continue on her regular medications. (6) Diabetes Code(s): E11.9 - Type 2 diabetes mellitus without complications Status: Chronic Plan: BG at hospital goal now * Holding metformin for now * Low dose SSI (7) Sacral wound Code(s): S31.000A - Unspecified open wound of lower back and pelvis without penetration into retroperitoneum, initial encounter Status: Acute Plan: Found upon skin examination by nursing staff, nursing staff to continue to monitor -Wound care consulted Unstageable due to not being able to assess the depth of the wound 1.Please cleanse wound with normal saline and pat dry. 2. Apply Santyl ointment richard thickness to wound bed 3. Apply saline moistened 2x2 fluffed gauze just over wound bed avoid placing over intact skin. 4. Cover wound with optifoam gentle border 4x4. 5. Change dressing daily. 6. Please turn patient from L side to R side every 2 hours, limit time spent on back to P.T. and meals. 7. Do not use cotton pads on low airloss bed. 8. Limit layers under patient. (8) Fungal skin infection Code(s): B36.9 - Superficial mycosis, unspecified Status: Acute Plan: Nystatin powder QID to groin area (9) Clavicle fracture Code(s): S42.009A - Fracture of unspecified part of unspecified clavicle, initial encounter for closed fracture Status: Acute Plan: RUE neurovascularly intact, no deformity noted * Monitor clinically * WBAT RUE (10) Nutrition, metabolism, and development symptoms Code(s): R63.8 - Other symptoms and signs concerning food and fluid intake Status: Acute Plan: Fluids: no IVF Diet: pureed diabetic diet GI: Famotidine Docusate serum/senna 1 tablet twice daily for bowel regimen DVT: Heparin BID <Shantel Summers - 05/20/18 10:18> - Attending Attestation The exam, history, and the medical decision-making described in the above note were completed with the assistance of the resident physician. I reviewed and agree with the findings presented. I attest that I had a [id number] encounter with the patient on the same day, and personally performed and documented my assessment and findings in the medical record. seems about the same to me today. will follow commands and respond yes and nod head to certain things. it seems to me that she is happy everytime I bring up trying a new treatment for her depression. Finally reached daughter today, Solomon asked for updated progress notes again today. Hope to transfer tomorrow to [facility] for ECT. Psych added ambien to namenda and ativan today and continues to recommend ECT. BPs remain labile and titrating as needed to keep tight control without over medicating. <Dino Day - 05/20/18 14:34> <Shantel Summers G - Last Filed: 05/20/18 10:18> (3) HTN (hypertension) Qualifiers: Hypertension type: other secondary hypertension Qualified Code(s): I15.8 - Other secondary hypertension (5) Hyperlipidemia Qualifiers: Hyperlipidemia type: pure hypercholesterolemia Qualified Code(s): E78.00 - Pure hypercholesterolemia, unspecified; E78.0 - Pure hypercholesterolemia (6) Diabetes Qualifiers: Diabetes mellitus type: type 2 Diabetes mellitus termite control representative insulin use: unspecified termite control representative insulin use status Diabetes mellitus complication status : with circulatory complication Diabetes mellitus complication detail: with peripheral angiopathy without gangrene Qualified Code(s): E11.51 - Type 2 diabetes 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 <Dino Day - Last Filed: 05/20/18 14:34> (3) HTN (hypertension) Qualifiers: Hypertension type: other secondary hypertension Qualified Code(s): I15.8 - Other secondary hypertension (5) Hyperlipidemia Qualifiers: Hyperlipidemia type: pure hypercholesterolemia Qualified Code(s): E78.00 - Pure hypercholesterolemia, unspecified; E78.0 - Pure hypercholesterolemia (6) Diabetes Qualifiers: Diabetes mellitus type: type 2 Diabetes mellitus termite control representative insulin use: unspecified retirement insulin use status Diabetes mellitus complication status : with circulatory complication Diabetes mellitus complication detail: with peripheral angiopathy without gangrene Qualified Code(s): E11.51 - Type 2 diabetes 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 <Shantel Summers - Last Filed: 05/20/18 10:18> (3) HTN (hypertension) Qualifiers: Hypertension type: other secondary hypertension Qualified Code(s): I15.8 - Other secondary hypertension (5) Hyperlipidemia Qualifiers: Hyperlipidemia type: pure hypercholesterolemia Qualified Code(s): E78.00 - Pure hypercholesterolemia, unspecified; E78.0 - Pure hypercholesterolemia (6) Diabetes Qualifiers: Diabetes mellitus type: type 2 Diabetes mellitus retirement insulin use: unspecified retirement insulin use status Diabetes mellitus complication status : with circulatory complication Diabetes mellitus complication detail: with peripheral angiopathy without gangrene Qualified Code(s): E11.51 - Type 2 diabetes 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 <Dino Day - Last Filed: 05/20/18 14:34> (3) HTN (hypertension) Qualifiers: Hypertension type: other secondary hypertension Qualified Code(s): I15.8 - Other secondary hypertension (5) Hyperlipidemia Qualifiers: Hyperlipidemia type: pure hypercholesterolemia Qualified Code(s): E78.00 - Pure hypercholesterolemia, unspecified; E78.0 - Pure hypercholesterolemia (6) Diabetes Qualifiers: Diabetes mellitus type: type 2 Diabetes mellitus retirement insulin use: unspecified termite control representative insulin use status Diabetes mellitus complication status : with circulatory complication Diabetes mellitus complication detail: with peripheral angiopathy without gangrene Qualified Code(s): E11.51 - Type 2 diabetes 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
[2018-05-20 12:23] LABS: Hematocrit 30.2 % (35.0-46.0); Hemoglobin 10.3 gm/dL (11.6-15.3); Mean Corpuscular HGB Conc 34.2 % (32.0-36.0); Mean Corpuscular Hemoglobin 32.3 pg (27.0-34.0); Mean Corpuscular Volume 94.4 fL (80.0-100.0); Platelet Count 172 th/mm3 (150-450); Red Cell Distribution Width 14.5 % (11.6-17.2); White Blood Count 7.8 th/mm3 (4.0-11.0)
--- NOTE | 2018-05-20 12:29 | P.PNPSY ---
Subjective Remarks: The patient was seen today for psychiatric reevaluation. The patient was found eating her breakfast. She ate 100% of her breakfast this morning. Patient seems to have a better affect, she is more emotional, at times even smiles. She was able to recognize me from our previous encounters. Continues to be mostly mute, with a prominent delay speech, oppositional behavior, thought blocking, but at times is able to answer with monosyllabic statements. She also is able to say yes and no with her head. Some level of a stiffness, waxy flexibility and lack of spontaneity present, but she is able to follow some verbal commands. She was able to denies suicidal and homicidal ideation, she reports good mood. She is oriented in place and person, disoriented in time. She was able to tell me that she wants to get better, that she wants to follow medical recommendation. I explained her the ECT process and she verbalized agreement with it. Patient has been taking oral medications, no significant side effects reported. Mental Status Examination Appearance: Appropriate Consciousness: Alert Orientation: Person, Place Motor Activity: Other (Patient is bedridden and currently intubated) Speech: Hesitant, Slow, Other (Whispered) Language: Adequate (Strained) Fund of Knowledge: Adequate (Unknown) Attention and Concentration: Adequate (At times) Memory: Impaired Mood: Anxious, Other (Restricted) Affect: Other (Decreased range and intensity) Thought Process & Associations: Intact Thought Content: Appropriate Hallucination Type: None Delusion Type: None Suicidal Ideation: No Suicidal Plan: No Suicidal Intention: No Homicidal Ideation: No Homicidal Plan: No Homicidal Intention: No Insight: Fair Judgment: Impulsive Assessment and Plan - Assessment (1) HTN (hypertension) Code(s): I10 - Essential (primary) hypertension Status: Chronic - Plan Plan: On my psychiatric reevaluation today there is moderate improvement in catatonia. More facial expressions, a little bit more spontaneous movements, she is eating most of her food. But, the patient continues to present delay speech, almost mutism, thought blocking, waxy flexibility, some level of stiffness, oppositional behavior. Continue Ativan 2 mg every 6 hours. Continue Namenda 5 mg twice daily. We will add Ambien 5 mg in the morning and 10 mg at bedtime to help with catatonic symptoms. Given the refractoriness and resistance of catatonic symptoms, patient definitely benefits of ECT. Justification for Continued Inpatient Stay: No psychiatric admission indicated at this moment. I will follow-up (1) HTN (hypertension) Qualifiers: Hypertension type: other secondary hypertension Qualified Code(s): I15.8 - Other secondary hypertension
[2018-05-20 12:49] LABS: Calcium 8.2 mg/dL (8.5-10.1); Carbon Dioxide 29.4 meq/L (21.0-32.0); Potassium 3.8 meq/L (3.5-5.1)
[2018-05-20] MEDS: hydrALAZINE 25 MG Tablet PO SCH ×2 (13:17→17:55)
[2018-05-20] MEDS: Nystatin 100,000 UNITS/GM Powder 15 GM Bottle TOPICAL SCH ×3 (13:18→22:50)
[2018-05-20] MEDS: Zolpidem Tartrate 5 MG Tablet PO SCH (13:23)
[2018-05-21] MEDS: Oral Hygiene Kit OROPHARYNG SCH ×4 (04:45→23:44)
[2018-05-21] MEDS: Insulin NovoLOG Aspart Correctional Sugar Inj SQ SCH ×4 (06:28→23:41)
[2018-05-21] MEDS: Artificial Tears Opth Drops 15 ML Bottle EACH EYE SCH ×3 (06:29→23:32)
[2018-05-21] MEDS: Zolpidem Tartrate 5 MG Tablet PO SCH (08:21)
[2018-05-21] MEDS: Insulin Detemir Inj 1,000 UNIT/10 ML Vial SQ SCH ×2 (08:21→20:33)
[2018-05-21] MEDS: amLODIPine 10 MG Tablet PO SCH (09:36)
[2018-05-21] MEDS: Heparin - SQ 10,000 UNITS/ML Vial SQ SCH ×2 (09:37→20:36)
[2018-05-21] MEDS: Carvedilol 12.5 MG Tablet PO SCH ×2 (09:37→20:27)
[2018-05-21] MEDS: hydrALAZINE 25 MG Tablet PO SCH ×3 (09:37→17:26)
[2018-05-21] MEDS: Famotidine 20 MG Tablet PO SCH ×2 (09:38→20:27)
[2018-05-21] MEDS: Collagenase Oint 30 GM Tube TOPICAL SCH (09:39)
[2018-05-21] MEDS: Nystatin 100,000 UNITS/GM Powder 15 GM Bottle TOPICAL SCH ×4 (09:39→20:30)
[2018-05-21] MEDS: Senna/Docusate Sodium 8.6/50 MG Tablet PO SCH ×2 (09:39→20:27)
--- NOTE | 2018-05-21 12:05 | P.PNFP ---
Subjective Interval history: Patient seen and examined this morning. She shook her head no to whether she had any pain and to whether she had any trouble breathing. She did not answer any further questions. <Keyshawn MinerShantel Ramses - 05/21/18 14:20> Results - Labs Result diagrams: 05/20/18 11:28 05/20/18 11:28 <Dino Day - 05/21/18 20:39> Abnormal lab results 05/20/18 05/21/18 05/21/18 Range/Units 23:32 12:03 17:25 POC Glucose 123 H 216 H 119 H (68-110) mg/dl <Dino Day - 05/21/18 20:39> Abnormal lab results 05/20/18 05/20/18 05/20/18 Range/Units 11:28 11:28 12:34 RBC 3.20 L (4.00-5.30) mil/mm3 Hgb 10.3 L (11.6-15.3) gm/dL Hct 30.2 L (35.0-46.0) % BUN 20 H (7-18) mg/dL Estimated GFR 88 L (>89) mL/min POC Glucose 168 H (68-110) mg/dl Random Glucose 178 H (74-106) mg/dL Calcium 8.2 L (8.5-10.1) mg/dL 05/20/18 Range/Units 23:32 RBC (4.00-5.30) mil/mm3 Hgb (11.6-15.3) gm/dL Hct (35.0-46.0) % BUN (7-18) mg/dL Estimated GFR (>89) mL/min POC Glucose 123 H (68-110) mg/dl Random Glucose (74-106) mg/dL Calcium (8.5-10.1) mg/dL Short CBC 05/20/18 Range/Units 11:28 WBC 7.8 (4.0-11.0) th/mm3 Hgb 10.3 L (11.6-15.3) gm/dL Hct 30.2 L (35.0-46.0) % Plt Count 172 (150-450) th/mm3 BMP 05/20/18 11:28 Sodium 143 Potassium 3.8 Chloride 106 Carbon Dioxide 29.4 BUN 20 H Creatinine 0.67 Calcium 8.2 L <Keyshawn Shantel Miner G - 05/21/18 12:05> Physical Exam Vital signs: Vital Signs 05/21/18 00:00 05/21/18 01:58 05/21/18 03:52 Temperature 98.2 F Pulse Rate 72 Respiratory Rate 20 16 16 Blood Pressure 123/54 L Pulse Oximetry 97 05/21/18 04:00 05/21/18 08:00 05/21/18 12:00 Temperature 98.2 F 97.7 F 98.2 F Pulse Rate 61 66 69 Respiratory Rate 20 20 20 Blood Pressure 126/58 L 110/53 L 98/52 L Pulse Oximetry 94 L 97 98 05/21/18 16:00 05/21/18 19:43 05/21/18 20:25 Temperature 98.1 F 98.4 F Pulse Rate 141 H 71 Respiratory Rate 20 18 Blood Pressure 106/58 L 115/57 L Pulse Oximetry 96 97 97 Intake & Output 05/21/18 05/21/18 05/22/18 06:59 18:59 06:59 Weight 49.3 kg Other: # Voids 4 <Dino Day K - 05/21/18 20:39> Vital Signs 05/20/18 15:15 05/20/18 16:00 05/20/18 20:00 Temperature 97.9 F 98.8 F Pulse Rate 61 59 L 61 Respiratory Rate 18 20 Blood Pressure 119/55 L 111/54 L Pulse Oximetry 97 99 05/21/18 00:00 05/21/18 01:58 05/21/18 03:52 Temperature 98.2 F Pulse Rate 72 Respiratory Rate 20 16 16 Blood Pressure 123/54 L Pulse Oximetry 97 05/21/18 04:00 05/21/18 08:00 Temperature 98.2 F 97.7 F Pulse Rate 61 66 Respiratory Rate 20 20 Blood Pressure 126/58 L 110/53 L Pulse Oximetry 94 L 97 Intake & Output 05/20/18 05/21/18 05/21/18 18:59 06:59 18:59 Weight 49.3 kg Other: # Voids 4 # Incontinent Voids 1 Date of Last Bowel Movement 05/20/18 <Keyshawn Shantel Miner G - 05/21/18 12:05> Narrative: GENERAL: laying in bed, NAD SKIN: Sacral area: ~5.5cmx2.5cm, unable to access depth due to sloughing of yellowish tissue, area surrounded by erythema. Bandage to this area is CDI. Has erythematous macular rash with satellite lesions in groin and intergluteal cleft. CARDIOVASCULAR: Regular rate and rhythm. RESPIRATORY: No accessory muscle use. Soft wheezes. Breath sounds equal bilaterally. NEUROLOGICAL: Awake and alert. does not answer any questions. Has spontaneous movements. follows commands. PSYCHIATRIC: Flat affect. <Borup Shantel Miner - 05/21/18 14:20> - Urinary Catheter Management Straight Cath placed during this visit: no <Dino Day 05/21/18 20:39> no <Shantel Summers 05/21/18 14:20> Assessment and Plan - Assessment (1) Catatonia associated with another mental disorder Code(s): F06.1 - Catatonic disorder due to known physiological condition Status: Acute (2) PRES (posterior reversible encephalopathy syndrome) Code(s): I67.83 - Posterior reversible encephalopathy syndrome Status: Acute (3) HTN (hypertension) Code(s): I10 - Essential (primary) hypertension Status: Chronic (4) Seizures Code(s): R56.9 - Unspecified convulsions Status: Acute (5) Hyperlipidemia Code(s): E78.5 - Hyperlipidemia, unspecified Status: Chronic (6) Diabetes Code(s): E11.9 - Type 2 diabetes mellitus without complications Status: Chronic (7) Sacral wound Code(s): S31.000A - Unspecified open wound of lower back and pelvis without penetration into retroperitoneum, initial encounter Status: Acute (8) Fungal skin infection Code(s): B36.9 - Superficial mycosis, unspecified Status: Acute (9) Clavicle fracture Code(s): S42.009A - Fracture of unspecified part of unspecified clavicle, initial encounter for closed fracture Status: Acute (10) Nutrition, metabolism, and development symptoms Code(s): R63.8 - Other symptoms and signs concerning food and fluid intake Status: Acute <Dino Day 05/21/18 20:39> (1) Catatonia associated with another mental disorder Code(s): F06.1 - Catatonic disorder due to known physiological condition Status: Acute Plan: Neurology recommending transfer to [facility] for further work 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 Ativan 2mg po q6h, Namenda 5mg po BID scheduled by psychiatry Has been accepted at [facility], spoke to daughter, Mandy, yesterday who agrees with the plan to transfer -[facility] states that patient can only be transfered if voluntary or if under [place] Act by emergency court order -Will continue to try to coordinate (2) PRES (posterior reversible encephalopathy syndrome) Code(s): I67.83 - Posterior reversible encephalopathy syndrome Status: Acute Plan: MRI findings suggestive of PRES, resolved on repeat imaging on 05/14 BPs under better control, will continue antihypertensives Neurology following, advises stat transfer for ECT Avoid ACEi (3) HTN (hypertension) Code(s): I10 - Essential (primary) hypertension Status: Chronic Plan: Due to PRES needs tighter BP control per neurology: goal SBP 110-120 * IV pushes with Hydralazine and labetalol as needed for BP control * Titrating PO meds * Hydralazine 75 mg TID * Coreg 25 mg BID * Isosorbide dinitrate 20 mg TIDAC * Amlodipine 10 mg daily (4) Seizures Code(s): R56.9 - Unspecified convulsions Status: Acute Plan: Now with possible repeat seizure vs catalepsy from catatonia EEG with nonspecific encephalopathy MRI/MRA unremarkable except for PRES, resolved Changed to PO Keppra (5) Hyperlipidemia Code(s): E78.5 - Hyperlipidemia, unspecified Status: Chronic Plan: We will continue on her regular medications. (6) Diabetes Code(s): E11.9 - Type 2 diabetes mellitus without complications Status: Chronic Plan: BG at hospital goal now * Holding metformin for now * Low dose SSI (7) Sacral wound Code(s): S31.000A - Unspecified open wound of lower back and pelvis without penetration into retroperitoneum, initial encounter Status: Acute Plan: Found upon skin examination by nursing staff, nursing staff to continue to monitor -Wound care consulted Unstageable due to not being able to assess the depth of the wound 1.Please cleanse wound with normal saline and pat dry. 2. Apply Santyl ointment richard thickness to wound bed 3. Apply saline moistened 2x2 fluffed gauze just over wound bed avoid placing over intact skin. 4. Cover wound with optifoam gentle border 4x4. 5. Change dressing daily. 6. Please turn patient from L side to R side every 2 hours, limit time spent on back to P.T. and meals. 7. Do not use cotton pads on low airloss bed. 8. Limit layers under patient. (8) Fungal skin infection Code(s): B36.9 - Superficial mycosis, unspecified Status: Acute Plan: Nystatin powder QID to groin area (9) Clavicle fracture Code(s): S42.009A - Fracture of unspecified part of unspecified clavicle, initial encounter for closed fracture Status: Acute Plan: RUE neurovascularly intact, no deformity noted * Monitor clinically * WBAT RUE (10) Nutrition, metabolism, and development symptoms Code(s): R63.8 - Other symptoms and signs concerning food and fluid intake Status: Acute Plan: Fluids: no IVF Diet: pureed diabetic diet GI: Famotidine Docusate serum/senna 1 tablet twice daily for bowel regimen DVT: Heparin BID <Keyshawn Shantel Miner Ramses - 05/21/18 14:15> - Attending Attestation The exam, history, and the medical decision-making described in the above note were completed with the assistance of the resident physician. I reviewed and agree with the findings presented. I attest that I had a [id number] encounter with the patient on the same day, and personally performed and documented my assessment and findings in the medical record. Today for the first time she just cried during the whole interview. she would move her fingers almost unnoticeably to command but that was it, she had tears streaming down her face as I talked to her. She never did respond to anything for the whole encounter. BPs are well controlled, will wean from isosorbide dinitrate if possible. Discussed with Dr Lainez and CM today. [facility] will now not accept her unless she is hdez acted. So we will discharge her to med/psych and will be happy for a consult there. Will discuss with patient's PCP tomorrow <Dino Day - 05/21/18 20:39> <BorupShantel Ott - Last Filed: 05/21/18 14:15> (3) HTN (hypertension) Qualifiers: Hypertension type: other secondary hypertension Qualified Code(s): I15.8 - Other secondary hypertension (5) Hyperlipidemia Qualifiers: Hyperlipidemia type: pure hypercholesterolemia Qualified Code(s): E78.00 - Pure hypercholesterolemia, unspecified; E78.0 - Pure hypercholesterolemia (6) Diabetes Qualifiers: Diabetes mellitus type: type 2 Diabetes mellitus nursing home insulin use: unspecified nursing home insulin use status Diabetes mellitus complication status : with circulatory complication Diabetes mellitus complication detail: with peripheral angiopathy without gangrene Qualified Code(s): E11.51 - Type 2 diabetes 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 <Dino Day - Last Filed: 05/21/18 20:39> (3) HTN (hypertension) Qualifiers: Hypertension type: other secondary hypertension Qualified Code(s): I15.8 - Other secondary hypertension (5) Hyperlipidemia Qualifiers: Hyperlipidemia type: pure hypercholesterolemia Qualified Code(s): E78.00 - Pure hypercholesterolemia, unspecified; E78.0 - Pure hypercholesterolemia (6) Diabetes Qualifiers: Diabetes mellitus type: type 2 Diabetes mellitus 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 help 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 representative insulin use: unspecified computer help desk representative insulin use status Diabetes mellitus complication status : with circulatory complication Diabetes mellitus complication detail: with peripheral angiopathy without gangrene Qualified Code(s): E11.51 - Type 2 diabetes 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 <Shantel Summers - Last Filed: 05/21/18 14:15> (3) HTN (hypertension) Qualifiers: Hypertension type: other secondary hypertension Qualified Code(s): I15.8 - Other secondary hypertension (5) Hyperlipidemia Qualifiers: Hyperlipidemia type: pure hypercholesterolemia Qualified Code(s): E78.00 - Pure hypercholesterolemia, unspecified; E78.0 - Pure hypercholesterolemia (6) Diabetes Qualifiers: Diabetes mellitus type: type 2 Diabetes mellitus nursing home insulin use: unspecified computer help desk representative insulin use status Diabetes mellitus complication status : with circulatory complication Diabetes mellitus complication detail: with peripheral angiopathy without gangrene Qualified Code(s): E11.51 - Type 2 diabetes 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 <Dino Day - Last Filed: 05/21/18 20:39> (3) HTN (hypertension) Qualifiers: Hypertension type: other secondary hypertension Qualified Code(s): I15.8 - Other secondary hypertension (5) Hyperlipidemia Qualifiers: Hyperlipidemia type: pure hypercholesterolemia Qualified Code(s): E78.00 - Pure hypercholesterolemia, unspecified; E78.0 - Pure hypercholesterolemia (6) Diabetes Qualifiers: Diabetes mellitus type: type 2 Diabetes mellitus nursing home insulin use: unspecified computer help desk representative insulin use status Diabetes mellitus complication status : with circulatory complication Diabetes mellitus complication detail: with peripheral angiopathy without gangrene Qualified Code(s): E11.51 - Type 2 diabetes 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
--- NOTE | 2018-05-21 16:27 | P.DIET ---
Nutritional Evaluation Type of nutrition evaluation: follow-up Nutrition consult regarding: Tube Feeding Nutrition screening: MDC (TF'ing) Screening comments: 05/01 MDC for TF'ing 05/03 MDC for TF'ing Subjective Subjective Comments: Pt awake but does not respond much. 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%) % IBW: 113 (IBW = 106lb (-12%)) Body Weight Used for Calculations: Actual (61.6kg) Energy Needs - Lower Range (kCal/kg): 25 Energy Needs - Upper Range (kCal/kg): 30 Lower Limit kCal/kg (kCals): 1,540 Upper Limit kCal/kg (kCals): 1,848 Lower Limit Protein Factor (Grams per Kg): 1.2 Upper Limit Protein Factor (Grams per Kg): 1.4 Lower Protein Needs (Protein): 74 Upper Protein Needs (Protein): 86 Dietitian Reviewed in Medical Record: Current diet, Curent medications, Intake & Output, Labs, Medical history, Tube feeding Diet Order: 1200 ADA w/ Glucerna shakes TID Oral Diet Intake Amount: Poor <50% Speech Therapy Recommendations: Yes (pureed, thin liquids) Objective Comments: PMH: dementia, DM, high cholesterol, hx of stroke, HTN, non-hodgkin lymphoma, AKA R lower extremity Meds: lipitor ambmarah Labs: POC glucose 89 123 78 LBM 05/20/18 Assessment Assessment: Pt remains currently at nutritional risk r/t AMS and need for TF'ing. Pt currently consuming around 25% for most meals and rejected some meals per chart. Pt currently on a 1200 ADA diet, RD to recommend a 1800 ADA diet to increase amount of kcal pt is receiving. RD to recommend Glucerna Shakes TID as PO supplement for additional nutrition. Spoke w/ MORRO Sen about pts nutritional status, per RN pt has a poor appetite but does consume all of the supplements provided b/c she likes sweet foods/drinks. RN also mentioned pt has no teeth but is tolerating her foods fine and swallowing well. Encourage PO intake and provide feeding assistance as needed. Continue to monitor PO and supplement intake. Labs reviewed, dietitian following. Recommendations: 1. RD to recommend a 1800 ADA diet to increase amount of kcal pt is receiving 2. RD to recommend Glucerna Shakes TID as PO supplement for additional nutrition 3. Encourage PO intake and provide feeding assistance as needed 4. Continue to monitor PO and supplement intake 5. Dietitian following Dietitian to Monitor: Lab values, Glucose level, Supplement acceptance, Intake & Output, Diet tolerance, Weight change, PO Intake, Swallow recommendations, Medical course
[2018-05-22] MEDS: Oral Hygiene Kit OROPHARYNG SCH ×3 (04:48→16:48)
[2018-05-22] MEDS: Insulin NovoLOG Aspart Correctional Sugar Inj SQ SCH ×3 (06:34→17:40)
[2018-05-22] MEDS: Artificial Tears Opth Drops 15 ML Bottle EACH EYE SCH ×3 (06:34→22:55)
--- NOTE | 2018-05-22 08:35 | P.PNNEU ---
Subjective Active Medications: Active Medications Acetaminophen (Tylenol Liq) 650 mg NG/OG Q6H PRN PRN Reason: PAIN 1-10 AND/OR FEVER >101F Al Hydroxide/Mg Hydroxide (Milk Of Magnesia Liq) 30 ml PO Q12H PRN PRN Reason: Mild Constipation Albuterol (Albuterol Neb (Prn)) 2.5 mg NEB Q2HR NEB PRN PRN Reason: DYSPNEA Amlodipine Besylate (Norvasc) 10 mg PO DAILY [facility] Last Admin: 05/21/18 09:36 Dose: 10 mg Artificial Tears (Tears Naturale Opth Drops) 1 drop EACH EYE Q8H [facility] Last Admin: 05/22/18 06:34 Dose: Not Given Aspirin (Aspirin Chew) 81 mg NG/OG DAILY [facility] Last Admin: 05/21/18 09:37 Dose: 81 mg Atorvastatin Calcium (Lipitor) 40 mg NG/OG HS [facility] Last Admin: 05/21/18 20:28 Dose: 40 mg Bisacodyl (Dulcolax Supp) 10 mg RECTAL DAILY PRN PRN Reason: SEVERE CONSITIPATION Carvedilol (Coreg) 25 mg PO BID [facility] Last Admin: 05/21/18 20:27 Dose: 25 mg Clonidine HCl (Catapres) 0.1 mg PO Q6H PRN PRN Reason: SEE LABEL COMMENTS Collagenase (Santyl Oint) 1 applicatio TOPICAL DAILY [facility] Last Admin: 05/21/18 09:39 Dose: 1 applicatio Dextrose (D50w Vial) 50 ml IV.PUSH UNSCH PRN PRN Reason: PER HYPOGLYCEMIA PROTOCOL Famotidine (Pepcid) 20 mg PO BID [facility] Last Admin: 05/21/18 20:27 Dose: 20 mg Gabapentin (Neurontin) 600 mg PO BID [facility] Last Admin: 05/01/18 08:56 Dose: Not Given Glucagon (Glucagon Inj) 1 mg OTHER PRN PRN PRN Reason: for Hypoglycemia Protocol Heparin Sodium (Porcine) (Heparin Inj) 5,000 units SQ Q12HR [facility] Last Admin: 05/21/18 20:36 Dose: 5,000 units Hydralazine HCl (Apresoline Inj) 10 mg IV.PUSH Q1H PRN PRN Reason: sbp > 140 Last Admin: 05/08/18 22:04 Dose: 10 mg Hydralazine HCl (Apresoline) 75 mg PO TID [facility] Last Admin: 05/21/18 17:26 Dose: 75 mg Fentanyl (Fentanyl 10 Mcg/Ml Premix Drip) 2,500 mcg in 250 mls @ 5 mls/hr IV.SIG TITRATE PRN; Protocol PRN Reason: Per Protocol Insulin Aspart (Novolog Insulin Correctional Sugar Inj) 0 unit SQ Q6HR [facility]; Protocol Last Admin: 05/22/18 06:34 Dose: Not Given Insulin Detemir (Levemir Inj) 5 unit SQ BID [facility] Last Admin: 05/21/18 20:33 Dose: 5 unit Isosorbide Dinitrate (Isordil) 10 mg PO TIDAC [facility] Labetalol HCl (Trandate Inj) 10 mg IV.PUSH Q1H PRN PRN Reason: Sbp>140, Dbp>90, Hr>65 Last Admin: 05/10/18 23:29 Dose: 10 mg Lactulose (Lactulose Liq) 30 ml PO DAILY PRN PRN Reason: SEVERE CONSITIPATION Last Admin: 05/18/18 12:54 Dose: 30 ml Lorazepam (Ativan) 2 mg PO Q6H [facility] Last Admin: 05/22/18 04:48 Dose: Not Given Memantine (Namenda) 5 mg PO BID [facility] Last Admin: 05/21/18 20:28 Dose: 5 mg Miscellaneous Medication () 1 each OROPHARYNG 0000,0400,1200,1600 [facility] Last Admin: 05/22/18 04:48 Dose: Not Given Nystatin (Mycostatin Powder) 1 applicatio TOPICAL QID [facility] Last Admin: 05/21/18 20:30 Dose: 1 applicatio Ondansetron HCl (Zofran Inj) 4 mg IV.PUSH Q6H PRN PRN Reason: NAUSEA Senna/Docusate Sodium (Aleah-Colace) 1 tab PO BID [facility] Last Admin: 05/21/18 20:27 Dose: Not Given Sennosides (Senokot) 17.2 mg PO Q12H PRN PRN Reason: Moderate Constipation Sodium Chloride (Ns Flush) 2 ml IV.FLUSH BID [facility] Last Admin: 05/21/18 20:34 Dose: Not Given Sodium Chloride (Ns Flush) 2 ml IV.FLUSH UNSCH PRN PRN Reason: FLUSH AFTER USING IV ACCESS Last Admin: 05/06/18 08:32 Dose: 2 ml Thiamine HCl (Thiamine Inj) 100 mg IM DAILY [facility] Last Admin: 05/21/18 09:54 Dose: Not Given Zolpidem Tartrate (Ambien) 10 mg PO HS [facility] Last Admin: 05/21/18 20:27 Dose: 10 mg Zolpidem Tartrate (Ambien) 5 mg PO DAILY@0800 [facility] Last Admin: 05/21/18 08:21 Dose: 5 mg Allergies/Adverse Reactions: Allergies Allergy/AdvReac Type Severity Reaction Status Date / Time JACE Inhibitors Allergy Swelling Verified 05/06/18 12:26 of Lip/Tongue/Throat iodine Allergy Swelling Verified 04/19/18 15:50 Physical Exam Vital signs: Vital Signs 05/21/18 12:00 05/21/18 16:00 05/21/18 19:43 Temperature 98.2 F 98.1 F 98.4 F Pulse Rate 69 141 H 71 Respiratory Rate 20 20 18 Blood Pressure 98/52 L 106/58 L 115/57 L Pulse Oximetry 98 96 97 05/21/18 20:00 05/21/18 20:25 05/22/18 00:00 Temperature 98.7 F Pulse Rate 64 65 Respiratory Rate 18 Blood Pressure 112/55 L Pulse Oximetry 97 96 05/22/18 03:07 05/22/18 04:00 05/22/18 06:00 Temperature 98.5 F Pulse Rate 67 63 Respiratory Rate 16 20 Blood Pressure 139/78 Pulse Oximetry 95 Intake & Output 05/21/18 05/22/18 05/22/18 18:59 06:59 18:59 Weight 55.1 kg Other: # Voids 3 # Incontinent Voids 1 Narrative: no change sys hello and goodbye not other commands sideways in bed looks me in the eye - Urinary Catheter Management Straight Cath placed during this visit: no Objective Laboratory Results - last 24 hr 05/21/18 05/21/18 05/21/18 12:03 17:25 20:29 POC Glucose 216 H 119 H 177 H 05/21/18 05/22/18 23:33 06:32 POC Glucose 153 H 99 Review/Management - Diagnosis (1) Hypertensive encephalopathy Code(s): I67.4 - Hypertensive encephalopathy Status: Acute Current Visit: Yes (2) HTN (hypertension) Code(s): I10 - Essential (primary) hypertension Status: Chronic Current Visit: No (3) Dementia Code(s): F03.90 - Unspecified dementia without behavioral disturbance Status: Acute Current Visit: No (4) Seizures Code(s): R56.9 - Unspecified convulsions Status: Acute Current Visit: No (5) Anxiety Code(s): F41.9 - Anxiety disorder, unspecified Status: Acute Current Visit: No - Review/Management Plan: 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 may have element of PRES as noted in prior notes recs check csf studies-pending bp control Thiamine supplementation follow exam Dr. Mehta to follow in a.m. 05/01/18 mri loops like PRES mra and mrv and labs all neg keep bp 110-120/ LP today eeg neg on keppra --------- 05/02/18 looks a little better mri repeat yest no change pres bp better keep 110-120/ await LP needs done today!! on keppra 05/03/18 mri no change eeg neg LP neg bp better check ct abd and pelvis and chest paraneo 05/06/18 looks so much better neurowise check paraneoplastic labs PRES clinically better thiamine pend will recheck mri in few days keep bp down 110-120/ ct chest and abd ok 05/07/18 sedated i [facility] med team pt looked to have early changes of pres 2 days after admit and bp initially 186/ in er the Question of which came first the pres or the catatonia ? i think overall the pres likley caused the ms changes as bp came down she is so much better yest i andrei nurse hold sedative should awaken she was on seroquel and lexapro i believe b4 admit and nms considered with drastic improvement clinically would not rec ect need to inc po meds for bp control i see no major hypotension documented when not on iv meds 05/08/18 will need to keep off sedatives i dw nurse keep bp 110-120/ possible extubation today as above i am not convinced she had catatonia b4 pres started as bp taken in er day b4 ms changes in 180/ range regardless with ms improvement with rx of bp i am not recommending ect at this time 05/09/17 130-170/ we need to keep bp 110-120 at all times more awake off sedatives working on extubation 05/10/18 would like bp 110-120/ recheck mri looking well overall await extubation when can will fu sunday call neuro consulting solution director if any ? no major change if she needs to be basurto acted then i would rec we do that05/13/18 better than b4 intubation but stillslow to respond mri is better and looks like small old smattering of infarcts left high posterior cortex pres improved keep bp down will check eeg if that looks ok and not improving ms garcia daily consider ect us echo neg check holter old cva 05/14/18 not doing much today as far as verbally abg nl eeg slow will recheck mri and if pres continues abated ok for ect check spep daughter states was nl mentally 2 day prior to admission when took narcotics seemed to start ms change holter pend daughter knows of old left cva yrs ago 05/15/18 mri pres resolved spep pend holter neg old cva no better my thoughts would be to see if [facility] or [facility] will take her for consideration of ect since she is a complex and not straight forward case for second opinion 05/16/18 if anything a little worse will try 1 gm solumedrol rec transfer to [facility] or [facility] for ect psych started benzo ------- 05/17/18 not any better my thoughts are she should be transfered for ect stat as morbidity mortality rate high w/o it 05/20/18 needs transfer to [facility] for ect off keppra ms not any better needs bp better 110-120/ with pres --------- 05/22/18 no major change if she needs to be basurto acted then team should do that cannot make own med decisions needs to txfer sai to [facility] if catatonia and not ect she has high morbidity mortality rate if treatment withheld (2) HTN (hypertension) Qualifiers: Hypertension type: other secondary hypertension Qualified Code(s): I15.8 - Other secondary hypertension
[2018-05-22 09:02] LABS: Calcium 8.3 mg/dL (8.5-10.1); Carbon Dioxide 31.6 meq/L (21.0-32.0); Potassium 3.5 meq/L (3.5-5.1)
--- NOTE | 2018-05-22 09:33 | P.PNFP ---
Subjective Interval history: Ms Perdoza was seen on rounds this morning. She is relatively noncommunicative but does shake her head no to most questions. Nursing was turning and cleaning her sacral wound at the time of exam. No overnight events noted <Savana Boston - 05/22/18 09:33> Results - Labs Result diagrams: 05/20/18 11:28 05/22/18 07:26 <Dino Day 05/22/18 16:05> Abnormal lab results 05/21/18 05/21/18 05/21/18 Range/Units 17:25 20:29 23:33 BUN (7-18) mg/dL Estimated GFR (>89) mL/min POC Glucose 119 H 177 H 153 H (68-110) mg/dl Calcium (8.5-10.1) mg/dL 05/22/18 05/22/18 Range/Units 07:26 12:37 BUN 19 H (7-18) mg/dL Estimated GFR 77 L (>89) mL/min POC Glucose 134 H (68-110) mg/dl Calcium 8.3 L (8.5-10.1) mg/dL [facility] 05/22/18 07:26 Sodium 143 Potassium 3.5 Chloride 105 Carbon Dioxide 31.6 BUN 19 H Creatinine 0.75 Calcium 8.3 L <Dino Day 05/22/18 16:05> Abnormal lab results 05/21/18 05/21/18 05/21/18 Range/Units 12:03 17:25 20:29 BUN (7-18) mg/dL Estimated GFR (>89) mL/min POC Glucose 216 H 119 H 177 H (68-110) mg/dl Calcium (8.5-10.1) mg/dL 05/21/18 05/22/18 Range/Units 23:33 07:26 BUN 19 H (7-18) mg/dL Estimated GFR 77 L (>89) mL/min POC Glucose 153 H (68-110) mg/dl Calcium 8.3 L (8.5-10.1) mg/dL [facility] 05/22/18 07:26 Sodium 143 Potassium 3.5 Chloride 105 Carbon Dioxide 31.6 BUN 19 H Creatinine 0.75 Calcium 8.3 L <Savana Boston - 05/22/18 09:33> Physical Exam Vital signs: Vital Signs 05/21/18 19:43 05/21/18 20:00 05/21/18 20:25 Temperature 98.4 F Pulse Rate 71 64 Respiratory Rate 18 Blood Pressure 115/57 L Pulse Oximetry 97 97 05/22/18 00:00 05/22/18 03:07 05/22/18 04:00 Temperature 98.7 F 98.5 F Pulse Rate 65 67 Respiratory Rate 18 16 20 Blood Pressure 112/55 L 139/78 Pulse Oximetry 96 95 05/22/18 06:00 05/22/18 07:59 05/22/18 08:00 Temperature 98.2 F Pulse Rate 63 67 Respiratory Rate 16 Blood Pressure 121/58 L Pulse Oximetry 98 98 05/22/18 12:31 Temperature 99.0 F Pulse Rate 77 Respiratory Rate 18 Blood Pressure 114/58 L Pulse Oximetry 93 L Intake & Output 05/21/18 05/22/18 05/22/18 18:59 06:59 18:59 Weight 55.1 kg Other: # Voids 3 # Incontinent Voids 1 Date of Last Bowel Movement 05/20/18 <Dino Day K - 05/22/18 16:05> Vital Signs 05/21/18 12:00 05/21/18 16:00 05/21/18 19:43 Temperature 98.2 F 98.1 F 98.4 F Pulse Rate 69 141 H 71 Respiratory Rate 20 20 18 Blood Pressure 98/52 L 106/58 L 115/57 L Pulse Oximetry 98 96 97 05/21/18 20:00 05/21/18 20:25 05/22/18 00:00 Temperature 98.7 F Pulse Rate 64 65 Respiratory Rate 18 Blood Pressure 112/55 L Pulse Oximetry 97 96 05/22/18 03:07 05/22/18 04:00 05/22/18 06:00 Temperature 98.5 F Pulse Rate 67 63 Respiratory Rate 16 20 Blood Pressure 139/78 Pulse Oximetry 95 05/22/18 07:59 Temperature 98.2 F Pulse Rate 67 Respiratory Rate 16 Blood Pressure 121/58 L Pulse Oximetry 98 Intake & Output 05/21/18 05/22/18 05/22/18 18:59 06:59 18:59 Weight 55.1 kg Other: # Voids 3 # Incontinent Voids 1 <Savana Boston 05/22/18 09:33> Narrative: GENERAL: laying in bed, NAD SKIN: Sacral area: Sacral wound looks stable about 5.5 x 2.5 cm, nursing cleaning and re-bandaging wound during exam. erythematous macular rash with satellite lesions in groin and intergluteal cleft. CARDIOVASCULAR: Regular rate and rhythm. RESPIRATORY: No accessory muscle use. Breath sounds equal bilaterally. Slightly diminished sounds bilateral bases NEUROLOGICAL: Awake and alert. Shakes her head to questions but does not speak. Has spontaneous movements. follows commands. PSYCHIATRIC: Flat affect. <Savana Boston 05/22/18 09:33> - Urinary Catheter Management Straight Cath placed during this visit: no <PaulinomagdalenoDino Gong 05/22/18 16:05> no <Savana Boston 05/22/18 09:33> Assessment and Plan - Assessment (1) Catatonia associated with another mental disorder Code(s): F06.1 - Catatonic disorder due to known physiological condition Status: Acute (2) PRES (posterior reversible encephalopathy syndrome) Code(s): I67.83 - Posterior reversible encephalopathy syndrome Status: Acute (3) HTN (hypertension) Code(s): I10 - Essential (primary) hypertension Status: Chronic (4) Seizures Code(s): R56.9 - Unspecified convulsions Status: Acute (5) Hyperlipidemia Code(s): E78.5 - Hyperlipidemia, unspecified Status: Chronic (6) Diabetes Code(s): E11.9 - Type 2 diabetes mellitus without complications Status: Chronic (7) Sacral wound Code(s): S31.000A - Unspecified open wound of lower back and pelvis without penetration into retroperitoneum, initial encounter Status: Acute (8) Fungal skin infection Code(s): B36.9 - Superficial mycosis, unspecified Status: Acute (9) Clavicle fracture Code(s): S42.009A - Fracture of unspecified part of unspecified clavicle, initial encounter for closed fracture Status: Acute (10) Nutrition, metabolism, and development symptoms Code(s): R63.8 - Other symptoms and signs concerning food and fluid intake Status: Acute <PaulinomgadalenoDino Gong Mee 05/22/18 16:05> (1) Catatonia associated with another mental disorder Code(s): F06.1 - Catatonic disorder due to known physiological condition Status: Acute Plan: Neurology recommending transfer to [facility] or [facility] for further work Discharged to psychiatry yesterday patient, to be moved today 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 Ativan 2mg po q6h, Namenda 5mg po BID scheduled by psychiatry (2) PRES (posterior reversible encephalopathy syndrome) Code(s): I67.83 - Posterior reversible encephalopathy syndrome Status: Acute Plan: MRI findings suggestive of PRES, resolved on repeat imaging on 05/14 BPs under better control, will continue antihypertensives Neurology following, advises stat transfer for ECT Avoid ACEi (3) HTN (hypertension) Code(s): I10 - Essential (primary) hypertension Status: Chronic Plan: Due to PRES needs tighter BP control per neurology: goal SBP 110-120 * IV pushes with Hydralazine and labetalol as needed for BP control * Titrating PO meds * Hydralazine 75 mg TID * Coreg 25 mg BID * Isosorbide dinitrate 20 mg TIDAC * Amlodipine 10 mg daily (4) Seizures Code(s): R56.9 - Unspecified convulsions Status: Acute Plan: Now with possible repeat seizure vs catalepsy from catatonia EEG with nonspecific encephalopathy MRI/MRA unremarkable except for PRES, resolved Changed to PO Keppra (5) Hyperlipidemia Code(s): E78.5 - Hyperlipidemia, unspecified Status: Chronic Plan: We will continue on her regular medications. (6) Diabetes Code(s): E11.9 - Type 2 diabetes mellitus without complications Status: Chronic Plan: BG at hospital goal now * Holding metformin for now * Low dose SSI (7) Sacral wound Code(s): S31.000A - Unspecified open wound of lower back and pelvis without penetration into retroperitoneum, initial encounter Status: Acute Plan: Found upon skin examination by nursing staff, nursing staff to continue to monitor -Wound care consulted Unstageable due to not being able to assess the depth of the wound 1.Please cleanse wound with normal saline and pat dry. 2. Apply Santyl ointment richard thickness to wound bed 3. Apply saline moistened 2x2 fluffed gauze just over wound bed avoid placing over intact skin. 4. Cover wound with optifoam gentle border 4x4. 5. Change dressing daily. 6. Please turn patient from L side to R side every 2 hours, limit time spent on back to P.T. and meals. 7. Do not use cotton pads on low airloss bed. 8. Limit layers under patient. (8) Fungal skin infection Code(s): B36.9 - Superficial mycosis, unspecified Status: Acute Plan: Nystatin powder QID to groin area (9) Clavicle fracture Code(s): S42.009A - Fracture of unspecified part of unspecified clavicle, initial encounter for closed fracture Status: Acute Plan: RUE neurovascularly intact, no deformity noted * Monitor clinically * WBAT RUE (10) Nutrition, metabolism, and development symptoms Code(s): R63.8 - Other symptoms and signs concerning food and fluid intake Status: Acute Plan: Fluids: no IVF Diet: pureed diabetic diet GI: Famotidine Docusate serum/senna 1 tablet twice daily for bowel regimen DVT: Heparin BID <Savana Boston - 05/22/18 09:29> - Assessment and Plan Discussed Condition With: Chris Day and Keyshawn <Savana Boston 05/22/18 09:33> - Attending Attestation The exam, history, and the medical decision-making described in the above note were completed with the assistance of the resident physician. I reviewed and agree with the findings presented. I attest that I had a [id number] encounter with the patient on the same day, and personally performed and documented my assessment and findings in the medical record. she does seem to be making some improvement today. she took the water cup in her hand and brought it to her mouth to drink. she answered yes and no to some questions. she even laughed when I asked her favorite song. She never did say anything besides yes but when I asked if she wanted to watch tv she said yes. she tried to scoot herself up in the bed and was unable. But with help she seemed happy to watch the tv. She cried some when I talked about wanting her to get better. Awaiting discharge to [facility] and we are happy to be reconsulted then. 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 home insulin use status Diabetes mellitus complication status : with circulatory complication Diabetes mellitus complication detail: with peripheral angiopathy without gangrene Qualified Code(s): E11.51 - Type 2 diabetes 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 <Dino Day K - Last Filed: 05/22/18 16:05> (3) HTN (hypertension) Qualifiers: Hypertension type: other secondary hypertension Qualified Code(s): I15.8 - Other secondary hypertension (5) Hyperlipidemia Qualifiers: Hyperlipidemia type: pure hypercholesterolemia Qualified Code(s): E78.00 - Pure hypercholesterolemia, unspecified; E78.0 - Pure hypercholesterolemia (6) Diabetes Qualifiers: Diabetes mellitus type: type 2 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: unspecified nursing home insulin use status Diabetes mellitus complication status : with circulatory complication Diabetes mellitus complication detail: with peripheral angiopathy without gangrene Qualified Code(s): E11.51 - Type 2 diabetes 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 <Misty Savana Lopez - Last Filed: 05/22/18 09:29> (3) HTN (hypertension) Qualifiers: Hypertension type: other secondary hypertension Qualified Code(s): I15.8 - Other secondary hypertension (5) Hyperlipidemia Qualifiers: Hyperlipidemia type: pure hypercholesterolemia Qualified Code(s): E78.00 - Pure hypercholesterolemia, unspecified; E78.0 - Pure hypercholesterolemia (6) Diabetes Qualifiers: Diabetes mellitus type: type 2 Diabetes mellitus nursing home insulin use: unspecified 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 Diabetes mellitus complication status : with circulatory complication Diabetes mellitus complication detail: with peripheral angiopathy without gangrene Qualified Code(s): E11.51 - Type 2 diabetes 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 <Dino Day - Last Filed: 05/22/18 16:05> (3) HTN (hypertension) Qualifiers: Hypertension type: other secondary hypertension Qualified Code(s): I15.8 - Other secondary hypertension (5) Hyperlipidemia Qualifiers: Hyperlipidemia type: pure hypercholesterolemia Qualified Code(s): E78.00 - Pure hypercholesterolemia, unspecified; E78.0 - Pure hypercholesterolemia (6) Diabetes Qualifiers: Diabetes mellitus type: type 2 Diabetes mellitus nursing home insulin use: unspecified nursing home insulin use status Diabetes mellitus complication status : with circulatory complication Diabetes mellitus complication detail: with peripheral angiopathy without gangrene Qualified Code(s): E11.51 - Type 2 diabetes 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
[2018-05-22] MEDS: Carvedilol 12.5 MG Tablet PO SCH ×2 (09:48→21:46)
[2018-05-22] MEDS: hydrALAZINE 25 MG Tablet PO SCH ×3 (09:48→17:40)
[2018-05-22] MEDS: Senna/Docusate Sodium 8.6/50 MG Tablet PO SCH ×2 (09:48→21:47)
[2018-05-22] MEDS: Heparin - SQ 10,000 UNITS/ML Vial SQ SCH ×2 (09:49→21:49)
[2018-05-22] MEDS: amLODIPine 10 MG Tablet PO SCH (09:49)
[2018-05-22] MEDS: Zolpidem Tartrate 5 MG Tablet PO SCH (09:49)
[2018-05-22] MEDS: Insulin Detemir Inj 1,000 UNIT/10 ML Vial SQ SCH ×2 (09:49→21:45)
[2018-05-22] MEDS: Famotidine 20 MG Tablet PO SCH ×2 (09:49→21:46)
[2018-05-22] MEDS: Collagenase Oint 30 GM Tube TOPICAL SCH (09:50)
[2018-05-22] MEDS: Nystatin 100,000 UNITS/GM Powder 15 GM Bottle TOPICAL SCH ×4 (09:50→21:46)
[2018-05-23] MEDS: Oral Hygiene Kit OROPHARYNG SCH ×2 (00:30→04:56)
[2018-05-23] MEDS: Insulin NovoLOG Aspart Correctional Sugar Inj SQ SCH ×2 (00:30→07:45)
[2018-05-23 06:47] VITALS: PULSE 70
[2018-05-23 07:45] VITALS: BP 125/58; RESP 16; TEMP 97.9; O2SAT 95
[2018-05-23] MEDS: Artificial Tears Opth Drops 15 ML Bottle EACH EYE SCH (07:45)
--- NOTE | 2018-05-23 08:54 | P.PNFP ---
Subjective Interval history: Ms Pedroza was seen on rounds this morning. Nursing reports that she will be transferred to [facility] today. Patient is sleeping in bed but arousable. Follows commands but does not speak. Does not shake her head yes or no to answer questions. <Savana Boston - 05/23/18 08:54> Results - Labs Result diagrams: 05/20/18 11:28 05/22/18 07:26 <Dino Day - 05/23/18 19:27> Abnormal lab results 05/22/18 05/23/18 Range/Units 21:45 00:09 POC Glucose 118 H 129 H (68-110) mg/dl <Dino Day 05/23/18 19:27> Abnormal lab results 05/22/18 05/22/18 05/22/18 Range/Units 07:26 12:37 17:46 BUN 19 H (7-18) mg/dL Estimated GFR 77 L (>89) mL/min POC Glucose 134 H 117 H (68-110) mg/dl Calcium 8.3 L (8.5-10.1) mg/dL 05/22/18 05/23/18 Range/Units 21:45 00:09 BUN (7-18) mg/dL Estimated GFR (>89) mL/min POC Glucose 118 H 129 H (68-110) mg/dl Calcium (8.5-10.1) mg/dL BMP 05/22/18 07:26 Sodium 143 Potassium 3.5 Chloride 105 Carbon Dioxide 31.6 BUN 19 H Creatinine 0.75 Calcium 8.3 L <Savana Boston - 05/23/18 08:54> Physical Exam Vital signs: Vital Signs 05/22/18 20:44 05/23/18 00:19 05/23/18 04:00 Temperature 98.5 F 98.1 F Pulse Rate 76 71 Respiratory Rate 18 18 14 Blood Pressure 132/64 119/57 L Pulse Oximetry 95 91 L 05/23/18 06:44 05/23/18 07:14 Temperature 97.8 F 97.9 F Pulse Rate 70 70 Respiratory Rate 18 16 Blood Pressure 152/68 H 125/58 L Pulse Oximetry 98 95 Intake & Output 05/23/18 05/23/18 05/24/18 06:59 18:59 06:59 Other: # Incontinent Voids 2 Date of Last Bowel Movement 05/20/18 05/20/18 <Dino Day - 05/23/18 19:27> Vital Signs 05/22/18 12:31 05/22/18 17:35 05/22/18 20:44 Temperature 99.0 F 98.3 F 98.5 F Pulse Rate 77 74 76 Respiratory Rate 18 18 18 Blood Pressure 114/58 L 129/60 132/64 Pulse Oximetry 93 L 95 95 05/23/18 00:19 05/23/18 04:00 05/23/18 06:44 Temperature 98.1 F 97.8 F Pulse Rate 71 70 Respiratory Rate 18 14 18 Blood Pressure 119/57 L 152/68 H Pulse Oximetry 91 L 98 05/23/18 07:14 Temperature 97.9 F Pulse Rate 70 Respiratory Rate 16 Blood Pressure 125/58 L Pulse Oximetry 95 Intake & Output 05/22/18 05/23/18 05/23/18 18:59 06:59 18:59 Intake Total 500 / 500 Balance 500 / 500 Intake: Oral 500 / 500 Other: # Incontinent Voids 3 2 Date of Last Bowel Movement 05/20/18 05/20/18 <Savana Boston 05/23/18 08:54> Narrative: GENERAL: laying in bed, NAD SKIN: Sacral area: Sacral wound looks stable about 5.5 x 2.5 cm, bandage clean dry and intact changed on 05/22 with no surrounding erythema noted. Erythematous macular rash with satellite lesions in groin and intergluteal cleft , stable from yesterday's exam CARDIOVASCULAR: Regular rate and rhythm. RESPIRATORY: No accessory muscle use. Breath sounds equal bilaterally. Slightly diminished sounds bilateral bases NEUROLOGICAL: Sleepy. Does not answer questions. Follows commands. Spontaneous movement. PSYCHIATRIC: Flat affect. <Savana Boston 05/23/18 08:54> - Urinary Catheter Management Straight Cath placed during this visit: no <Dino Day 05/23/18 19:27> no <Savana Boston 05/23/18 08:54> Assessment and Plan - Assessment (1) Catatonia associated with another mental disorder Code(s): F06.1 - Catatonic disorder due to known physiological condition Status: Acute (2) PRES (posterior reversible encephalopathy syndrome) Code(s): I67.83 - Posterior reversible encephalopathy syndrome Status: Acute (3) HTN (hypertension) Code(s): I10 - Essential (primary) hypertension Status: Chronic (4) Seizures Code(s): R56.9 - Unspecified convulsions Status: Acute (5) Hyperlipidemia Code(s): E78.5 - Hyperlipidemia, unspecified Status: Chronic (6) Diabetes Code(s): E11.9 - Type 2 diabetes mellitus without complications Status: Chronic (7) Sacral wound Code(s): S31.000A - Unspecified open wound of lower back and pelvis without penetration into retroperitoneum, initial encounter Status: Acute (8) Fungal skin infection Code(s): B36.9 - Superficial mycosis, unspecified Status: Acute (9) Clavicle fracture Code(s): S42.009A - Fracture of unspecified part of unspecified clavicle, initial encounter for closed fracture Status: Acute (10) Nutrition, metabolism, and development symptoms Code(s): R63.8 - Other symptoms and signs concerning food and fluid intake Status: Acute <Dino Day Farideh - 05/23/18 19:27> (1) Catatonia associated with another mental disorder Code(s): F06.1 - Catatonic disorder due to known physiological condition Status: Acute Plan: Neurology recommending transfer to [place] or [facility] for further work Patient to be transferred to [facility] this morning 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 Ativan 2mg po q6h, Namenda 5mg po BID scheduled by psychiatry (2) PRES (posterior reversible encephalopathy syndrome) Code(s): I67.83 - Posterior reversible encephalopathy syndrome Status: Acute Plan: MRI findings suggestive of PRES, resolved on repeat imaging on 05/14 BPs under better control slightly labile. Will continue antihypertensives Neurology following, advises stat transfer for ECT Avoid ACEi (3) HTN (hypertension) Code(s): I10 - Essential (primary) hypertension Status: Chronic Plan: Due to PRES needs tighter BP control per neurology: goal SBP 110-120 * IV pushes with Hydralazine and labetalol as needed for BP control * Titrating PO meds * Hydralazine 75 mg TID * Coreg 25 mg BID * Isosorbide dinitrate 20 mg TIDAC * Amlodipine 10 mg daily Clonidine 0.1 mg p.o. as needed (4) Seizures Code(s): R56.9 - Unspecified convulsions Status: Acute Plan: Now with possible repeat seizure vs catalepsy from catatonia EEG with nonspecific encephalopathy MRI/MRA unremarkable except for PRES, resolved Changed to PO Keppra (5) Hyperlipidemia Code(s): E78.5 - Hyperlipidemia, unspecified Status: Chronic Plan: We will continue on her regular medications. (6) Diabetes Code(s): E11.9 - Type 2 diabetes mellitus without complications Status: Chronic Plan: BG at hospital goal now * Holding metformin for now * Low dose SSI (7) Sacral wound Code(s): S31.000A - Unspecified open wound of lower back and pelvis without penetration into retroperitoneum, initial encounter Status: Acute Plan: Found upon skin examination by nursing staff, nursing staff to continue to monitor -Wound care consulted Unstageable due to not being able to assess the depth of the wound 1.Please cleanse wound with normal saline and pat dry. 2. Apply Santyl ointment richard thickness to wound bed 3. Apply saline moistened 2x2 fluffed gauze just over wound bed avoid placing over intact skin. 4. Cover wound with optifoam gentle border 4x4. 5. Change dressing daily. 6. Please turn patient from L side to R side every 2 hours, limit time spent on back to P.T. and meals. 7. Do not use cotton pads on low airloss bed. 8. Limit layers under patient. (8) Fungal skin infection Code(s): B36.9 - Superficial mycosis, unspecified Status: Acute Plan: Nystatin powder QID to groin area (9) Clavicle fracture Code(s): S42.009A - Fracture of unspecified part of unspecified clavicle, initial encounter for closed fracture Status: Acute Plan: RUE neurovascularly intact, no deformity noted * Monitor clinically * WBAT RUE (10) Nutrition, metabolism, and development symptoms Code(s): R63.8 - Other symptoms and signs concerning food and fluid intake Status: Acute Plan: Fluids: P.o. Diet: pureed diabetic diet GI: Famotidine Docusate serum/senna 1 tablet twice daily for bowel regimen DVT: Heparin BID <Savana Boston - 05/23/18 08:50> - Assessment and Plan Discussed Condition With: Dr Day <Savana Boston - 05/23/18 08:54> - Attending Attestation The exam, history, and the medical decision-making described in the above note were completed with the assistance of the resident physician. I reviewed and agree with the findings presented. I attest that I had a [id number] encounter with the patient on the same day, and personally performed and documented my assessment and findings in the medical record. very unresponsive today. stable but would not answer any questions even with yes. BP stable. the only thing she answered was shaking her head to if she had been watching tv. Discharging to psych so she can be basurto acted today. Hopefully soon she can get her ECT. <Dino Day - 05/23/18 19:27> <Savana Boston E - Last Filed: 05/23/18 08:50> (3) HTN (hypertension) Qualifiers: Hypertension type: other secondary hypertension Qualified Code(s): I15.8 - Other secondary hypertension (5) Hyperlipidemia Qualifiers: Hyperlipidemia type: pure hypercholesterolemia Qualified Code(s): E78.00 - Pure hypercholesterolemia, unspecified; E78.0 - Pure hypercholesterolemia (6) Diabetes Qualifiers: Diabetes mellitus type: type 2 Diabetes mellitus [employer] insulin use: unspecified assisted insulin use status Diabetes mellitus complication status : with circulatory complication Diabetes mellitus complication detail: with peripheral angiopathy without gangrene Qualified Code(s): E11.51 - Type 2 diabetes 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 <Dino Day - Last Filed: 05/23/18 19:27> (3) HTN (hypertension) Qualifiers: Hypertension type: other secondary hypertension Qualified Code(s): I15.8 - Other secondary hypertension (5) Hyperlipidemia Qualifiers: Hyperlipidemia type: pure hypercholesterolemia Qualified Code(s): E78.00 - Pure hypercholesterolemia, unspecified; E78.0 - Pure hypercholesterolemia (6) Diabetes Qualifiers: Diabetes mellitus type: type 2 Diabetes mellitus assisted insulin use: unspecified [employer] insulin use status Diabetes mellitus complication status : with circulatory complication Diabetes mellitus complication detail: with peripheral angiopathy without gangrene Qualified Code(s): E11.51 - Type 2 diabetes 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 <Savana Boston - Last Filed: 05/23/18 08:50> (3) HTN (hypertension) Qualifiers: Hypertension type: other secondary hypertension Qualified Code(s): I15.8 - Other secondary hypertension (5) Hyperlipidemia Qualifiers: Hyperlipidemia type: pure hypercholesterolemia Qualified Code(s): E78.00 - Pure hypercholesterolemia, unspecified; E78.0 - Pure hypercholesterolemia (6) Diabetes Qualifiers: Diabetes mellitus type: type 2 Diabetes mellitus [employer] insulin use: unspecified assisted insulin use status Diabetes mellitus complication status : with circulatory complication Diabetes mellitus complication detail: with peripheral angiopathy without gangrene Qualified Code(s): E11.51 - Type 2 diabetes 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 <Dino Day - Last Filed: 05/23/18 19:27> (3) HTN (hypertension) Qualifiers: Hypertension type: other secondary hypertension Qualified Code(s): I15.8 - Other secondary hypertension (5) Hyperlipidemia Qualifiers: Hyperlipidemia type: pure hypercholesterolemia Qualified Code(s): E78.00 - Pure hypercholesterolemia, unspecified; E78.0 - Pure hypercholesterolemia (6) Diabetes Qualifiers: Diabetes mellitus type: type 2 Diabetes mellitus [employer] insulin use: unspecified assisted insulin use status Diabetes mellitus complication status : with circulatory complication Diabetes mellitus complication detail: with peripheral angiopathy without gangrene Qualified Code(s): E11.51 - Type 2 diabetes 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
[2018-05-23] MEDS: hydrALAZINE 25 MG Tablet PO SCH (08:59)
[2018-05-23] MEDS: Carvedilol 12.5 MG Tablet PO SCH (08:59)
[2018-05-23] MEDS: Zolpidem Tartrate 5 MG Tablet PO SCH (08:59)
[2018-05-23] MEDS: amLODIPine 10 MG Tablet PO SCH (08:59)
[2018-05-23] MEDS: Heparin - SQ 10,000 UNITS/ML Vial SQ SCH (08:59)
[2018-05-23] MEDS: Insulin Detemir Inj 1,000 UNIT/10 ML Vial SQ SCH (09:00)
[2018-05-23] MEDS: Famotidine 20 MG Tablet PO SCH (09:00)
[2018-05-23] MEDS: Senna/Docusate Sodium 8.6/50 MG Tablet PO SCH (09:01)
[2018-05-23] MEDS: Collagenase Oint 30 GM Tube TOPICAL SCH (09:01)
[2018-05-23] MEDS: Nystatin 100,000 UNITS/GM Powder 15 GM Bottle TOPICAL SCH (09:01)
== END 2018-05-23 09:54 | DRG 70 ==
LOC: HIMC 12:01 → HCPC 23:51 → HIMC 05-01 11:35 → N05 05-13 21:02
PROVIDERS: ADMIT Family Medicine; ATTEND Family Medicine
CPT/HCPCS: 31500; 36600; 62270; 70551; 70553; 71010; 71045; 71250; 74176; 74183; 76937; 77003; 80048; 80053; 80076; 82140; 82150; 82378; 82550; 82570; 82805; 82945; 82948; 82962; 83605; 83690; 83735; 83916; 84100; 84132; 84134; 84155; 84157; 84165; 84300; 84425; 84443; 84484; 85025; 85027; 85610; 85730; 86255; 86301; 86304; 86403; 86592; 87015; 87040; 87070; 87102; 87116; 87205; 87206; 87327; 87449; 87493; 87498; 87529; 87641; 87801; 89050; 89051; 92526; 92610; 93225; 93306; 93880; 94002; 94003; 94150; 94640; 94644; 94656; 94657; 94664; 94665; 95819; 97110; 97162; 97164; 97167; 97530; A9585; C9248; G0195; J0360; J1100; J1200; J1205; J1644; J1815; J1953; J2060; J2250; J2704; J2930; J3411; J3475; J3480; J7050; J7120; P9045